=== PATIENT | female | born 1945 | race Caucasian/White ===

== ENCOUNTER 2017-06-06 08:42 | Outpatient (RCR) | payer MEDICARE, OTHER, SELFPAY ==
[2017-06-06 09:01] LABS: Prothrombin Time Fingerstick 30.1 SEC (11.9-14.4)
== END 2017-06-06 09:00 | disposition home or self-care (01) ==
LOC: MTLAB 08:42
PROVIDERS: Family Provider Pathology Anatomic Pathology & Clinical Pathology; PCP Pathology Anatomic Pathology & Clinical Pathology; Visit Provider Internal Medicine Cardiovascular Disease
DX: I48.2 Chronic atrial fibrillation (principal); Z79.01 Long term (current) use of anticoagulants
CPT/HCPCS: 36416; 85610

== ENCOUNTER 2017-08-09 09:01 | Outpatient (RCR) | payer MEDICARE, OTHER, SELFPAY ==
[2017-08-09 09:20] LABS: Prothrombin Time Fingerstick 29.6 SEC (11.9-14.4)
== END 2017-08-09 10:00 | disposition home or self-care (01) ==
LOC: LAB 09:01
PROVIDERS: Family Provider Pathology Anatomic Pathology & Clinical Pathology; PCP Pathology Anatomic Pathology & Clinical Pathology; Visit Provider Internal Medicine Cardiovascular Disease
DX: I48.2 Chronic atrial fibrillation (principal)
CPT/HCPCS: 36416; 85610

== ENCOUNTER → 2017-08-18 11:42 | Outpatient (CLI) | payer MEDICARE, OTHER, SELFPAY ==
[2017-08-18 14:58] LABS: Anion Gap 8 (5-15); BUN 20 mg/dL (7-18); BUN/Creat Ratio 19.6 RATIO (10-20); Chloride 103 mmol/L (98-107); Creatinine, Serum 1.02 mg/dL (0.55-1.02); EST Glomerular Filtration Rate 57 mL/min (>60); Est Glom Filt Rate - Afr Amer 69 mL/min (>60); Glucose 86 mg/dL (74-106); Potassium 4.2 mmol/L (3.5-5.1); Sodium Level 141 mmol/L (136-145)
[2017-08-18 15:29] LABS: AST(SGOT) 33 U/L (15-37); Alanine Aminotransfer ALT/SGPT 24 U/L (13-56); Albumin, Serum 3.7 g/dL (3.2-5.0); Alkaline Phosphatase 80 U/L (45-117); Bilirubin, Direct 0.24 mg/dL (0.00-0.30); Cholesterol 186 mg/dL (200); Globulin 3.3 g/dL (2.2-4.2); High Density Lipoprotein 74 mg/dL; Triglycerides 101 mg/dL; Very Low Density Lipoprotein 20 mg/dL (5-40)
== END ==
PROVIDERS: Physician Assistant Medical; Family Provider Pathology Anatomic Pathology & Clinical Pathology; PCP Pathology Anatomic Pathology & Clinical Pathology; Visit Provider Internal Medicine Cardiovascular Disease
DX: I50.22 Chronic systolic (congestive) heart failure (principal); E78.5 Hyperlipidemia, unspecified
CPT/HCPCS: 80048; 80061; 80076

== ENCOUNTER 2017-09-19 11:36 | Day surgery (SDC) | payer MEDICARE, OTHER, SELFPAY ==
[2017-09-15 11:26] VITALS: BP 104/64; PULSE 69; RESP 18; TEMP 37; O2SAT 99; BMI 26.6
[2017-09-19 12:11] LABS: Prothrombin Time Fingerstick 13.7 SEC (11.9-14.4)
[2017-09-19 12:16] VITALS: BP 120/64; PULSE 74; RESP 16; TEMP 36.5; O2SAT 99; BMI 26.6
--- NOTE | 2017-09-19 14:46 | PCM.DC ---
You will use the following diet at home:: No restrictions Discharge Activity: Return to Normal Activity Call your doctor if your incision/area has: Increased Pain/ Swelling Allergies/Adverse Reactions: Allergies amoxicillin Allergy (Verified 02/01/17 09:54) Unknown risedronate sodium [From Actonel] Allergy (Verified 02/01/17 09:54) Unknown metoprolol Adverse Reaction (Severe, Uncoded 06/26/17 11:57) Abdominal cramping, poor rate control Medications to take at Discharge Aspirin [Aspirin, Baby] 81 mg PO DAILY@0800 01/22/15 Levothyroxine [Synthroid] 75 mcg PO DAILY 01/22/15 Warfarin [Coumadin ([facility])] 6 mg PO WETH 01/22/15 Acetaminophen Liquid [Tylenol Liquid] 80 mg PO QHS 03/06/15 Magnesium Oxide [Magnesium] 1 tab PO DAILY 03/06/15 verapamil ER (PM) 100 mg capsule 24hr pellet CT,ext.release 100 mg PO QHS #90 cap 05/30/17 diazepam 5 mg tablet 2.5 mg PO PRN PRN 06/30/17 guaifenesin ER 600 mg tablet, extended release 12 hr 600 mg PO ONCE PRN 06/30/17 furosemide 20 mg tablet 40 mg PO QDAY #180 tab 08/09/17 spironolactone 25 mg tablet 25 mg PO QDAY #90 tab 09/04/17 Cholecalciferol (Vitamin D3) [Vitamin D3] 09/15/17 Triamcinolone Acetonide [Nasacort] 1 spray NS PRN PRN 09/15/17 Warfarin Sodium [Coumadin] 5 mg PO [id number] 09/15/17 Primary Care Physician: Coleman Sol MD [Primary Care Provider] - Please Follow Up With: Helio Lantigua MD When: 1 month
--- NOTE | 2017-09-19 14:49 | PCM.OPRPT ---
Problem List (1) Vocal cord paralysis, unilateral complete Status: Chronic Report of Operation Date of Procedure: 09/19/17 Pre-Operative Diagnosis: left vocal cord immobility Post-Operative Diagnosis: left vocal cord immobility Surgery/Procedure Performed:: injection, left vocal cord Type of Anesthesia:: General Description of Procedure: on the day of the procedure, after appropriate informed consent was obtained, the patient was brought to the operating room and placed in supine position on the operating table. she was placed under general endotracheal anesthesia by the anesthesiologist. the endotracheal tube was secured, the eyes were taped. the table was rotated 90 degrees toward the surgeon. a mouth guard was placed. the michaela laryngoscope was inserted into the oral cavity with care not to damage the lips, teeth or gums. it was suspended from the estrada stand. a good glottic view was achieved. the left paraglottic space was injected with 0.8cc of prolaryn plus. the vocal cord was medialized in good position. given her presbylarynx, her right paraglottic space was injected with 0.8cc prolaryn gel. hemostasis was observed. the patient was awoken from anesthesia and transferred to the PACU in stable condition.
[2017-09-19 15:18] VITALS: BP 120/64; BP 126/86; PULSE 90; RESP 16; TEMP 36.9; O2SAT 93
[2017-09-19 15:30] VITALS: BP 120/64; BP 129/79; PULSE 85; RESP 16; O2SAT 93
[2017-09-19 15:45] VITALS: BP 120/64; BP 123/74; PULSE 80; RESP 16; O2SAT 95
[2017-09-19 15:57] VITALS: BP 118/77; BP 120/64; PULSE 78; RESP 16; TEMP 36.5; O2SAT 94
[2017-09-19 16:30] VITALS: BP 120/64
== END 2017-09-19 16:41 | disposition home or self-care (01) ==
LOC: SDC 11:37 → AC 11:41
PROVIDERS: Family Provider Pathology Anatomic Pathology & Clinical Pathology; PCP Pathology Anatomic Pathology & Clinical Pathology; Visit Provider Otolaryngology
PROC: 0CJS8ZZ Inspection of Larynx, Via Natural or Artificial Opening Endoscopic (ICD-10-PCS; CPT 31575; principal; 2017-09-19 12:55)
DX: J38.01 Paralysis of vocal cords and larynx, unilateral (principal); R49.0 Dysphonia; I48.2 Chronic atrial fibrillation; I10 Essential (primary) hypertension; Z87.891 Personal history of nicotine dependence; Z95.0 Presence of cardiac pacemaker
CPT/HCPCS: 00320; 31573; 36416; 85610; J7120

== ENCOUNTER → 2017-09-26 08:00 | Outpatient (CLI) | payer MEDICARE, OTHER, SELFPAY ==
[2017-09-26 10:22] LABS: Anion Gap 5 (5-15); BUN 19 mg/dL (7-18); BUN/Creat Ratio 19.6 RATIO (10-20); Chloride 105 mmol/L (98-107); Creatinine, Serum 0.97 mg/dL (0.55-1.02); EST Glomerular Filtration Rate 60 mL/min (>60); Est Glom Filt Rate - Afr Amer 73 mL/min (>60); Glucose 80 mg/dL (74-106); Potassium 4.1 mmol/L (3.5-5.1); Sodium Level 141 mmol/L (136-145)
== END ==
PROVIDERS: Family Provider Pathology Anatomic Pathology & Clinical Pathology; PCP Pathology Anatomic Pathology & Clinical Pathology; Visit Provider Internal Medicine Cardiovascular Disease
DX: R53.83 Other fatigue (principal); R25.2 Cramp and spasm
CPT/HCPCS: 36415; 80048

== ENCOUNTER 2017-11-07 08:15 | Outpatient (RCR) | payer MEDICARE, OTHER, SELFPAY ==
--- NOTE | 2017-10-23 10:27 | DT_ITS ---
This patient was seen during an EMR downtime October 16, 2017 - October 23, 2017. This patient may have a combination of paper and electronic documentation or all paper documentation. All documentation is viewable within the e-chart portion of [employer] for each patient visit.
[2017-10-23 10:40] LABS: Prothrombin Time Fingerstick 40.9 SEC (11.9-14.4)
[2017-11-07 08:26] LABS: Prothrombin Time Fingerstick 40.6 SEC (11.9-14.4)
== END 2017-11-07 09:00 | disposition home or self-care (01) ==
LOC: LAB 08:15
PROVIDERS: Family Provider Pathology Anatomic Pathology & Clinical Pathology; PCP Pathology Anatomic Pathology & Clinical Pathology; Visit Provider Internal Medicine Cardiovascular Disease
DX: I48.2 Chronic atrial fibrillation (principal)
CPT/HCPCS: 36416; 85610

== ENCOUNTER 2017-12-05 09:24 | Outpatient (RCR) | payer MEDICARE, OTHER, SELFPAY ==
[2017-11-20 08:46] LABS: Prothrombin Time Fingerstick 31.3 SEC (11.9-14.4)
== END 2017-12-05 11:00 | disposition home or self-care (01) ==
LOC: LAB 09:24
PROVIDERS: Family Provider Pathology Anatomic Pathology & Clinical Pathology; PCP Pathology Anatomic Pathology & Clinical Pathology; Visit Provider Internal Medicine Cardiovascular Disease
DX: I48.2 Chronic atrial fibrillation (principal)
CPT/HCPCS: 36416; 85610

== ENCOUNTER 2018-01-01 08:35 | Outpatient (RCR) | payer MEDICARE, OTHER, SELFPAY ==
[2018-01-01 08:50] LABS: Prothrombin Time Fingerstick 24.2 SEC (11.9-14.4)
== END 2018-01-01 10:00 | disposition home or self-care (01) ==
LOC: LAB 08:35
PROVIDERS: Family Provider Pathology Anatomic Pathology & Clinical Pathology; PCP Pathology Anatomic Pathology & Clinical Pathology; Visit Provider Internal Medicine Cardiovascular Disease
DX: I48.2 Chronic atrial fibrillation (principal); Z79.01 Long term (current) use of anticoagulants
CPT/HCPCS: 36416; 85610

== ENCOUNTER 2018-01-23 08:35 | Outpatient (RCR) | payer MEDICARE, OTHER, SELFPAY ==
[2018-01-23 08:55] LABS: Prothrombin Time Fingerstick 32.8 SEC (11.9-14.4)
== END 2018-01-23 10:00 | disposition home or self-care (01) ==
LOC: LAB 08:35
PROVIDERS: Family Provider Pathology Anatomic Pathology & Clinical Pathology; PCP Pathology Anatomic Pathology & Clinical Pathology; Visit Provider Internal Medicine Cardiovascular Disease
DX: I48.2 Chronic atrial fibrillation (principal); Z79.01 Long term (current) use of anticoagulants
CPT/HCPCS: 36416; 85610

== ENCOUNTER 2018-02-28 08:23 | Outpatient (RCR) | payer MEDICARE, OTHER, SELFPAY ==
[2018-02-28 10:43] LABS: International Normalized Ratio 2.8; Prothrombin Time (Protime)PT. 29.3 SECONDS (11.7-14.9)
[2018-02-28 10:59] LABS: AST(SGOT) 30 U/L (15-37); Alanine Aminotransfer ALT/SGPT 20 U/L (13-56); Albumin, Serum 3.5 g/dL (3.2-5.0); Alkaline Phosphatase 79 U/L (45-117); Bilirubin, Direct 0.23 mg/dL (0.00-0.30); Cholesterol 178 mg/dL (200); Globulin 3.5 g/dL (2.2-4.2); High Density Lipoprotein 78 mg/dL; Triglycerides 68 mg/dL; Very Low Density Lipoprotein 14 mg/dL (5-40)
[2018-02-28 11:10] LABS: Thyroid Stim Hormone (TSH) 1.92 uIU/mL (0.358-3.74)
== END 2018-02-28 10:00 | disposition home or self-care (01) ==
LOC: LAB 08:23
PROVIDERS: Referring Provider Internal Medicine Cardiovascular Disease; Visit Provider Internal Medicine Cardiovascular Disease
DX: I48.2 Chronic atrial fibrillation (principal); Z79.01 Long term (current) use of anticoagulants; E03.9 Hypothyroidism, unspecified
CPT/HCPCS: 36415; 80061; 80076; 84443; 85610

== ENCOUNTER 2018-04-30 08:28 | Outpatient (RCR) | payer MEDICARE, OTHER, SELFPAY ==
--- OUTSIDE RECORDS SUMMARY | 2018-08-01 19:45 | XMS RPT_ITS ---
:1945 Author Organization OHIP Support Name Relationship Address Phone BRIDGET EMERSON Unavailable [address] + [place] [address] OSVALDO CHAMBERS Unavailable [address] + [place] [address] R Unavailable Unavailable Unavailable BRIDGET EMERSON Unavailable [address] + [place] [address] OSVALDO CHAMBERS Unavailable [address] + [place] [address] R Unavailable Unavailable Unavailable BRIDGET EMERSON Unavailable [address] + [place] [address] OSVALDO CHAMBERS Unavailable [address] + [place] [address] R Unavailable Unavailable Unavailable BRIDGET EMERSON Unavailable [address] + [place] [address] OSVALDO CHAMBERS Unavailable [address] + [place] [address] R Unavailable Unavailable Unavailable BRIDGET EMERSON Unavailable [address] + [place] [address] OSVALDO CHAMBERS Unavailable [address] + [place] [address] R Unavailable Unavailable Unavailable BRIDGET EMERSON Unavailable [address] + [place] [address] OSVALDO CHAMBERS Unavailable [address] + [place] [address] R Unavailable Unavailable Unavailable BRIDGET EMERSON Unavailable [address] + [place] [address] OSVALDO CHAMBERS Unavailable [address] + [place] [address] R Unavailable Unavailable Unavailable BRIDGET EMERSON Unavailable [address] + [place] [address] OSVALDO CHAMBERS Unavailable [address] + [place] [address] R Unavailable Unavailable Unavailable KI, BRIDGET Unavailable [address]KE + [place] [address] DUDLEYALEXKade Unavailable [address] + [place] [address] R Unavailable Unavailable Unavailable IK, BRIDGET Unavailable [address]KE + [place] [address] DUDLEYALEXE Unavailable [address] + [place] [address] R Unavailable Unavailable Unavailable KI, BRIDGET Unavailable [address] + [place] [address] DUDLEYALEXE Unavailable [address] + [place] [address] R Unavailable Unavailable Unavailable KI, BRIDGET Unavailable [address] + [place] [address] DUDLEYALEXE Unavailable [address] + [place] [address] R Unavailable Unavailable Unavailable KI BRIDGET Unavailable [address]KE + [place] [address] DUDLEY ALEXKade Unavailable [address] + [place] [address] R Unavailable Unavailable Unavailable KI, BRIDGET Unavailable [address]KE + [place] [address] DUDLEY ALEXKade Unavailable [address] + [place] [address] R Unavailable Unavailable Unavailable KI BRIDGET Unavailable NA + [place], [place] OSVALDO CHAMBERS Unavailable NA + [place], [place] R Unavailable Unavailable Unavailable KI BRIDGET Unavailable NA + [place], [place] OSVALDO CHAMBERS Unavailable NA + [place], [place] R Unavailable Unavailable Unavailable KI, BRIDGET Unavailable [address] + [place] [address] OSVALDO CHAMBERS Unavailable [address] + [place] [address] R Unavailable Unavailable Unavailable Care Team Providers Name Role Phone RITESH WHITAKER Referring Unavailable RITESH WHITAKER Referring Unavailable ADI DUONG Referring Unavailable ADI DUONG Attending Unavailable Clair Crawford Attending Unavailable Whitaker, Coleman Referring Unavailable Sanford, Brocket Attending Unavailable Sanford, Jamie Referring Unavailable BRIDGET COLEMAN Primary Care Unavailable BRIDGET COLEMAN Consulting Unavailable Sanford, Brocket Attending Unavailable Sanford, Jamie Referring Unavailable Whitaker, Coleman Primary Care Unavailable Joann Correa Attending Unavailable Whitaker, Coleman Referring Unavailable Whitaker, Coleman Primary Care Unavailable Clair Crawford Attending Unavailable Whitaker, Coleman Referring Unavailable Whitaker, Coleman Primary Care Unavailable Sanford, Jamie Attending Unavailable Sanford, Jamie Referring Unavailable Whitaker, Coleman Primary Care Unavailable Sanford, Jamie Attending Unavailable Whitaker, Coleman Primary Care Unavailable Helio [place] Attending Unavailable SpeedyannHelio Referring Unavailable Whitaker, Coleman Primary Care Unavailable Sanford, Jamie Attending Unavailable Sanford, Brocket Referring Unavailable Whitaker, Coleman Primary Care Unavailable Sanford, Jamie Attending Unavailable Sanford, Jamie Referring Unavailable Whitaker, Coleman Primary Care Unavailable Sanford, Jamie Attending Unavailable Sanford, Jamie Referring Unavailable Whitaker, Coleman Primary Care Unavailable BRIDGET COLEMAN Consulting Unavailable Sanford, Brocket Attending Unavailable Sanford, Brocket Referring Unavailable Whitaker, Coleman Primary Care Unavailable BRIDGET COLEMAN Consulting Unavailable Clair Crawford Attending Unavailable Whitaker, Coleman Referring Unavailable Whitaker, Coleman Primary Care Unavailable Sanford, Brocket Attending Unavailable Whitaker, Coleman Referring Unavailable Whitaker, Coleman Primary Care Unavailable Sanford, Jamie Attending Unavailable Sanford, Brocket Referring Unavailable BRIDGET COLEMAN Consulting Unavailable BRIDGET COLEMAN Primary Care Unavailable Sanford, Brocket Attending Unavailable Sanford, Brocket Referring Unavailable BRIDGET COLEMAN Primary Care Unavailable BRIDGET COLEMAN Consulting Unavailable Clair Crawford Attending Unavailable PROBLEMS PROBLEMS DATE TYPE CONDITION / CODE ATTENDING STATUS SOURCE Unknown I48.2 - Chronic atrial Sanford, 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[facility] fibrillation / Community I48.2(ICD-10) Hospital Repository Active Pain, unspecified / NA Active [facility] R52(ICD-10) Clinic Other [place] Repository Unknown E78.5 - Hyperlipidemia, SanfordCam orellanaril Active [facility] unspecified / Community E78.5(ICD-10) Hospital Repository Unknown 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, 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[facility] (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 / Community Z79.899(ICD-10) Hospital Repository Unknown 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 Sanford, 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[facility] (current) use of Community anticoagulants / Hospital Z79.01(ICD-10) Repository Unknown E03.9 - Hypothyroidism, Sanford, Brocket Active [facility] unspecified / Community E03.9(ICD-10) Hospital Repository Unknown 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, 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[facility] heart disease of [place] Community coronary artery without Hospital angina pectoris / Repository I25.10(ICD-10) Unknown I42.2 - Other Sanford, 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[facility] hypertrophic Community cardiomyopathy / Hospital I42.2(ICD-10) Repository Unknown Z95.0 - Presence of Sanford, 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[facility] cardiac pacemaker / Community Z95.0(ICD-10) Hospital Repository Unknown I51.9 - Heart disease, Sanford, Brocket Active [facility] unspecified / Community I51.9(ICD-10) Hospital Repository Active Cramp and spasm / NA Active [facility] R25.2(ICD-10) Clinic Other [place] Repository Active Encounter for screening NA Active [facility] mammogram for malignant Clinic Other neoplasm of breast / [place] Z12.31(ICD-10) Repository Unknown E78.00 - Pure Sunny, Active [facility] hypercholesterolemia, Joann M Community unspecified / Hospital E78.00(ICD-10) Repository Unknown E78.0 - Pure Correa, Active [facility] hypercholesterolemia / Joann M Community E78.0(ICD-10) Hospital Repository PROCEDURES PROCEDURES No Procedure Records FoundRESULTS RESULTS PROTIME W/INR Collected: 05/31/2018 Status: F Source: [facility] 8:28 AM [facility] HOSPITAL REPOSITORY TYPE CODE TESTS RESULT OUT OF REFERENCE UNITS RANGE LAB L9200.1001 11.9-14.4 SEC High PROTIME ISTAT 36.3 Result Comment: Reference Range 11.9 - 14.4 LAB L9200.2000 Normal INR ISTAT 3.20 Result Comment: Critical Value > 3.5 Performed By: #### [id number] #### [facility] Point of Care [address] [place] [address] PROTIME W/INR Collected: 04/30/2018 Status: F Source: [place] [facility] 8:42 AM [facility] REPOSITORY TYPE CODE TESTS RESULT OUT OF REFERENCE UNITS RANGE LAB L9200.1001 11.9-14.4 SEC High PROTIME ISTAT 38.0 Result Comment: Reference Range 11.9 - 14.4 LAB L9200.1999 Normal INR ISTAT 3.40 Result Comment: Critical Value > 3.5 Performed By: #### [id number] #### [facility] Point of Care [address] [place] [address] PACEMAKER CHECK Observed: 04/26/2018 Status: F Source: [facility] 11:16 AM [facility] REPOSITORY [facility] [address] [place] [address] Pacemaker Check Date of Service: 04/24/18 1255 MR#: [id number] Acct: [id number] Name: BETTINA CHAMBERS Marvin Rep #: [id number] : 1945 From: Clair Crawford Age/Sex: 72/F [place] [facility] [place]: Signed Billing Codes PM Device Codes: PM Dev Prog Eval, Dual 04/24/18 1257 <Electronically signed by Clair Crawford > Date Clair Crawford 04/26/18 1116<Electronically signed by Jamie Christina MD> Cosigner Signature: Date (if applicable) Jamie Christina MD CC: PROGRESS Observed: 04/10/2018 Status: COMPLETED Source: [facility] 2:45 PM CLIN[facility] OTHER CAMPUS REPOSITORY HNO ID: [id number] Author: Sanjuanita (Ct) FRANK Gutierrez Service: (none) Author Type: Clinical Turbine Attendant Type: Progress Notes Filed: 04/10/2018 2:46 PM Note Text: NAME:Bettina Chambers DATE: April 10, 2018 CCF#: [id number] Lower Extremity X-Ray(s): Knee, AP / Lat / Tunne / Merchant Left and Wt. Bearing COMPLETED TECH ID SIGN: SOFIA CHAMPION PROGRESS Observed: 04/10/2018 Status: COMPLETED Source: [facility] 1:30 PM [facility] REPOSITORY HNO ID: [id number] Author: Adi Duong Service: (none) Author Type: Physician Type: Progress Notes Filed: 04/26/2018 5:32 PM Note Text: Adi Duong MD Department of Orthopaedics Orthopaedics [address] [place] [address] Dept: [phone] April 10, 2018 CHIEF COMPLAINT: New Patient (left knee pain, xray) HPI: Ms. Bettina Chambers is a 72 year old female who presents with some problems with her left knee. She has a known history of arthritis that has mostly bother her a bit on the inner portion of the knee, however the outer portion of the knee has been giving her more trouble even up to a 7 out of 10 pain at times. It is intermittent. She didn't think some Tylenol and icing it. She does enjoy going for a short walk twice a day and she has been continuing to do this despite the discomfort. ASSESSMENT: M25.562, G89.29 Chronic pain of left knee (primary encounter diagnosis) M17.12 Primary osteoarthritis of left knee PLAN: Are going to try a short course of anti-inflammatory. A cortisone injection may be appropriate at some point. FOLLOW UP INSTRUCTIONS: As above Ms. Bettina Chambers was advised as to contrast therapies and/or to take analgesics/anti-inflammatories as needed and all contraindications were reviewed. OBJECTIVE: Ms. Bettina Chambers is a pleasant 72 year old in no apparent distress. Gen:BP 107/75 Pulse 83 Wt 166 lb 12.8 oz (75.7kg) nl development, non obese, no deformities ENT: Normocephalic, normal hearing, moist mucosa CV: Pulses:DP/PT= 2+ and symmetric, capillary refill < 2 secs, no peripheral edema/varicosities Skin: no rash, bruising or lesions. Good turgor. Psych: cooperative and appropriate, alert and oriented x 3, good mood and affect. Musculoskeletal: Patient walks with mild antalgia, normal station. Hip motion without pain. Knee without effusion. Patella tracks normally. There is no patellar crepitance. No pain along the medial or lateral facets. Range of motion 0?130 degrees. Mild medial and lateral joint line pain on palpation. Ligamentous exam stable on varus and valgus stress testing at 0 and 30 degrees. Javy's examination is negative. Posterior drawer is negative. Negative McMurrays, without palpable click. Extremity is warm and well perfused. Sensation is grossly intact to light touch, subjectively. IMAGING: IMPRESSION: MEDIAL COMPARTMENT PREDOMINANT DEGENERATIVE CHANGES OF THE LEFT KNEE. Technical Recruiter: PERI ? Transcribe Date/Time: Apr 11 2018 ?7:16A Dictated by : EVANGELIST GUNTER MD This examination was interpreted and the report reviewed and electronically signed by: EVANGELIST GUNTER MD on Apr 11 2018 ?7:18AM ?EST Results-Findings * * *Final Report* * * DATE OF EXAM: Apr 10 2018 12:43PM ? MDO ? 5202 ?- ?XR KNEE 4V AP/PA BOTH+LAT/BRAULIO LT ?/ PROCEDURE REASON: [id number] ?? ? * * * * Physician Interpretation * * * * ?EXAMINATION: ?XR KNEE 4V AP/PA BOTH+LAT/BRAULIO LT HISTORY: ? LT KNEE ?PAIN ?Pain ? . TECHNIQUE: ?XR KNEE 4V AP/PA BOTH+LAT/BRAULIO LT ?? Laterality: ?LEFT ?? Number of different views (projections): 4 ?? M: ?XB_1 COMPARISON: ?06/24/2014. RESULT: There is no acute fracture or subluxation. There is moderate joint space narrowing of the medial compartment, slightly progressed since prior exam. There is also mild joint space narrowing of the lateral compartment. Tricompartmental osteophytes. There is no joint effusion. No lytic or blastic osseous lesion. The soft tissues are grossly. Note is made of mild degenerative changes of the right knee. There is an benign-appearing fibro-osseous lesion in distal right femur. Supporting Subjective Information Below: Past Medical History: PAST MEDICAL HISTORY Diagnosis Date - Arrhythmia diagnosed with CHF 3 years ago - Macular degeneration (senile) of retina, unspecified - Senile cataract, unspecified - Thyroid disorder - Unspecified keratitis Past Surgical History: PAST SURGICAL HISTORY Procedure Laterality Date - CARDIOVERSION x8 - HEMORRHOID;BAND LIGAT, SNGL/MUL 1977 Hemorrhoidectomy - HYSTERECTOMY HX 1994 - KNEE ARTHROSCOPY/SURGERY 1987 - [place] ANESTH,PACEMAKER INSERTION Permanent Pacemaker defibrillatior- last time replaced was in 2011- pacemaker - SINGLE OBLATION 1999 Family History: FAMILY HISTORY Problem Relation Age of Onset - Heart Father - Cancer Mother - Cancer Sister - Heart Daughter - Heart Son Social History:Social History Marital status: Spouse name: Years of education: Number of children: Social History Main Topics Smoking status: Former Smoker Packs/day: 2.00 Years: 0.00 Types: Cigarettes Quit date: 05/19/1989 Smokeless tobacco: Never Used Alcohol use: No Drug use: No Medications: Current Outpatient Prescriptions: spironolactone (ALDACTONE) 25 mg tablet Take 25 mg by mouth once daily. 1/2 tablet daily cholecalciferol (VITAMIN D) 1,000 unit tab tablet Take 1,000 Units by mouth once daily. warfarin (COUMADIN) 5 mg tablet Levothyroxine 125 mcg cap Take 75 mcg by mouth. 75 mcg alternating with 100 mcg VERAPAMIL HCL 100 mg 24 hr capsule FUROSEMIDE 20 mg ORAL tablet 40 mg twice daily. diazepam 5 mg ORAL tablet Take 5 mg by mouth at bedtime as needed. fluticasone (FLONASE) 50 mcg/actuation NASAL nasal spray Use 1 [place] in each nostril once daily. aspirin, enteric coated (ASPIR-81) 81 mg EC tablet Take 1 tablet by mouth once daily. COMPOUNDED PRESCRIPTION Areds eye vitamin 120mg PO twice daily No current facility-administered medications for this visit. Allergies: Actonel [Risedronate]; Amoxicillin; Prednisolone ROS: General (negative for fatigue, malaise, weight loss/gain) HEENT (negative for headache, earache, recent vision changes, sinus pain, sore throat) Respiratory (no recent shortness of breath, hemoptysis) CV (negative for chest tightness, palpitations) Musculoskeletal (see HPI) Psych (no depression, anxiety) REFERRING PHYSICIAN: Ms. Bettina Chambers was referred to me for consultation by the following physician. This consultation note will be sent to the following physician by either mail or electronic medical record. SELF Ritesh Whitaker MD [address] [place] [address] This note was partially generated using [employer] voice recognition system, and there may be some incorrect words, spellings, and punctuation that were not noted in checking the note before saving. Adi Duong MD CNOV Observed: 04/10/2018 Status: COMPLETED Source: [facility] 1:15 PM [facility] REPOSITORY Office Visit (ORMDNA) BETTINA CHAMBERS ([id number]) 1945 F Date Time Provider Department 04/10/18 1:15 PM ADI DUONG During your visit today, we recorded the following information about you: Pulse Blood pressure Weight 83/minute 107/75 75.7 kg Sabrina Ocasio RN, RN 04/26/2018 5:32 PM Signed AMB ROOMING INTAKE FLOWSHEET DATA Risk Screening Do you have concerns about personal safety or safety in the home?: No Pain Pain Score: (0-7) Pain Location: Knee-Left Description: Sharp Duration Amount of Time: 1.5 Duration Units: Months Frequency: Intermittent Intervention: Heat, Cold, Medication (tylenol at HS ) Comments: elevation Patient presents with: New Patient: left knee pain, xray patient is here for left knee pain, she completed xray. Patient states pain has been going on for 1.5 months. Patient has been taking tylenol, ice and using heat as well as elevating. Patient walks twice a day. Pain is located in lateral part of knee. . DAPHNEY Daly MD 04/26/2018 5:32 PM Signed Adi Duong MD Department of Orthopaedics Orthopaedics [address] [place], [place] [address] Dept: [phone] April 10, 2018 CHIEF COMPLAINT: New Patient (left knee pain, xray) HPI: Ms. Bettina Chambers is a 72 year old female who presents with some problems with her left knee. She has a known history of arthritis that has mostly bother her a bit on the inner portion of the knee, however the outer portion of the knee has been giving her more trouble even up to a 7 out of 10 pain at times. It is intermittent. She didn't think some Tylenol and icing it. She does enjoy going for a short walk twice a day and she has been continuing to do this despite the discomfort. ASSESSMENT: M25.562, G89.29 Chronic pain of left knee (primary encounter diagnosis) M17.12 Primary osteoarthritis of left knee PLAN: Are going to try a short course of anti-inflammatory. A cortisone injection may be appropriate at some point. FOLLOW UP INSTRUCTIONS: As above Ms. Bettina Chambers was advised as to contrast therapies and/or to take analgesics/anti-inflammatories as needed and all contraindications were reviewed. OBJECTIVE: Ms. Bettina Chambers is a pleasant 72 year old in no apparent distress. Gen:BP 107/75 Pulse 83 Wt 166 lb 12.8 oz (75.7kg) nl development, non obese, no deformities ENT: Normocephalic, normal hearing, moist mucosa CV: Pulses:DP/PT= 2+ and symmetric, capillary refill < 2 secs, no peripheral edema/varicosities Skin: no rash, bruising or lesions. Good turgor. Psych: cooperative and appropriate, alert and oriented x 3, good mood and affect. Musculoskeletal: Patient walks with mild antalgia, normal station. Hip motion without pain. Knee without effusion. Patella tracks normally. There is no patellar crepitance. No pain along the medial or lateral facets. Range of motion 0?130 degrees. Mild medial and lateral joint line pain on palpation. Ligamentous exam stable on varus and valgus stress testing at 0 and 30 degrees. Javy's examination is negative. Posterior drawer is negative. Negative McMurrays, without palpable click. Extremity is warm and well perfused. Sensation is grossly intact to light touch, subjectively. IMAGING: IMPRESSION: MEDIAL COMPARTMENT PREDOMINANT DEGENERATIVE CHANGES OF THE LEFT KNEE. Technical Recruiter: DYLANB ? Transcribe Date/Time: Apr 11 2018 ?7:16A Dictated by : EVANGELIST GUNTER MD This examination was interpreted and the report reviewed and electronically signed by: EVANGELIST GUNTER MD on Apr 11 2018 ?7:18AM ?EST Results-Findings * * *Final Report* * * DATE OF EXAM: Apr 10 2018 12:43PM ? MDO ? 5202 ?- ?XR KNEE 4V AP/PA BOTH+LAT/BRAULIO LT ?/ PROCEDURE REASON: [id number] ?? ? * * * * Physician Interpretation * * * * ?EXAMINATION: ?XR KNEE 4V AP/PA BOTH+LAT/BRAULIO LT HISTORY: ? LT KNEE ?PAIN ?Pain ? . TECHNIQUE: ?XR KNEE 4V AP/PA BOTH+LAT/BRAULIO LT ?? Laterality: ?LEFT ?? Number of different views (projections): 4 ?? M: ?XB_1 COMPARISON: ?06/24/2014. RESULT: There is no acute fracture or subluxation. There is moderate joint space narrowing of the medial compartment, slightly progressed since prior exam. There is also mild joint space narrowing of the lateral compartment. Tricompartmental osteophytes. There is no joint effusion. No lytic or blastic osseous lesion. The soft tissues are grossly. Note is made of mild degenerative changes of the right knee. There is an benign-appearing fibro-osseous lesion in distal right femur. Supporting Subjective Information Below: Past Medical History: PAST MEDICAL HISTORY Diagnosis Date - Arrhythmia diagnosed with CHF 3 years ago - Macular degeneration (senile) of retina, unspecified - Senile cataract, unspecified - Thyroid disorder - Unspecified keratitis Past Surgical History: PAST SURGICAL HISTORY Procedure Laterality Date - CARDIOVERSION x8 - HEMORRHOID;BAND LIGAT, SNGL/MUL 1978 Hemorrhoidectomy - HYSTERECTOMY HX 1994 - KNEE ARTHROSCOPY/SURGERY 1987 - [place] ANESTH,PACEMAKER INSERTION Permanent Pacemaker defibrillatior- last time replaced was in 2011- pacemaker - SINGLE OBLATION 1999 Family History: FAMILY HISTORY Problem Relation Age of Onset - Heart Father - Cancer Mother - Cancer Sister - Heart Daughter - Heart Son Social History:Social History Marital status: Spouse name: Years of education: Number of children: Social History Main Topics Smoking status: Former Smoker Packs/day: 2.00 Years: 0.00 Types: Cigarettes Quit date: 05/19/1989 Smokeless tobacco: Never Used Alcohol use: No Drug use: No Medications: Current Outpatient Prescriptions: spironolactone (ALDACTONE) 25 mg tablet Take 25 mg by mouth once daily. 1/2 tablet daily cholecalciferol (VITAMIN D) 1,000 unit tab tablet Take 1,000 Units by mouth once daily. warfarin (COUMADIN) 5 mg tablet Levothyroxine 125 mcg cap Take 75 mcg by mouth. 75 mcg alternating with 100 mcg VERAPAMIL HCL 100 mg 24 hr capsule FUROSEMIDE 20 mg ORAL tablet 40 mg twice daily. diazepam 5 mg ORAL tablet Take 5 mg by mouth at bedtime as needed. fluticasone (FLONASE) 50 mcg/actuation NASAL nasal spray Use 1 [place] in each nostril once daily. aspirin, enteric coated (ASPIR-81) 81 mg EC tablet Take 1 tablet by mouth once daily. COMPOUNDED PRESCRIPTION Areds eye vitamin 120mg PO twice daily No current facility-administered medications for this visit. Allergies: Actonel [Risedronate]; Amoxicillin; Prednisolone ROS: General (negative for fatigue, malaise, weight loss/gain) HEENT (negative for headache, earache, recent vision changes, sinus pain, sore throat) Respiratory (no recent shortness of breath, hemoptysis) CV (negative for chest tightness, palpitations) Musculoskeletal (see HPI) Psych (no depression, anxiety) REFERRING PHYSICIAN: Ms. Bettina Chambers was referred to me for consultation by the following physician. This consultation note will be sent to the following physician by either mail or electronic medical record. SELF Ritesh Whitaker MD [address] [place] [address] This note was partially generated using [employer]Mail voice recognition system, and there may be some incorrect words, spellings, and punctuation that were not noted in checking the note before saving. Adi Duong MD Referring Provider: SELF [200] Allergies As of Date: 04/10/2018 Noted Allergy Reaction ACTONEL (RISEDRONATE) 09/06/2011 2 - Rash AMOXICILLIN 09/06/2011 2 - Rash PREDNISOLONE 09/06/2011 12 - Shortness of Breath 14 - Other: See Comments Comments: Affects baseline a-fibb Date Reviewed: 04/10/2018 Reviewed by: Adi Duong - Fully Assessed Reason for Visit: New Patient [172] Cmt: left knee pain, xray Reason For Visit History Recorded Primary Visit Diagnosis:Chronic pain of left knee [M25.562, G89.29] Other Visit Diagnosis:Primary osteoarthritis of left knee [M17.12] Order(s):meloxicam (MOBIC) 15 mg tabletTake 1 tablet by mouth once daily.Disp: 10 tabletRfl: 0 Prescriptions as of 04/10/2018 Sig: CHOLECALCIFEROL (VITAMIN D3) * Take 1,000 Units by mouth onc* * DIAZEPAM 5 MG TABLET Take 5 mg by mouth at bedtime* * FLUTICASONE 50 MCG/ACTUATION * Use 1 [place] in each nostril o* * FUROSEMIDE 20 MG TABLET 40 mg twice daily. LEVOTHYROXINE 125 MCG CAPSULE Take 75 mcg by mouth. 75 mcg * SPIRONOLACTONE 25 MG TABLET Take 25 mg by mouth once tara* VERAPAMIL ER (PM) 100 MG CAPS* WARFARIN 5 MG TABLET ASPIRIN 81 MG TABLET,DELAYED * Take 1 tablet by mouth once d* COMPOUNDED PRESCRIPTION Areds eye vitamin 120mg PO tw* MELOXICAM 15 MG TABLET Take 1 tablet by mouth once d* Problem List As Of Date 04/10/2018 Noted Resolved Arthritis of knee [M17.10] INVALID FOR* Age-related macular degeneration, dry, both eye*INVALID FOR* Lumbar radicular pain [M54.16] INVALID FOR* Lumbago [M54.5] INVALID FOR* Left-sided low back pain without sciatica [M54.*INVALID FOR* Prescriptions ordered this encounter Disp Refills Start End MELOXICAM 15 MG TABLET 10 t* 0 04/10/2018 Route: ORAL Sig: Take 1 tablet by mouth once daily. Encounter Status:Closed by ADI DUONG MD on 04/26/18 PROGRESS Observed: 04/10/2018 Status: COMPLETED Source: [place] 1:08 PM [facility] REPOSITORY HNO ID: [id number] Author: Sabrina HyattRn)(Hist) DAPHNEY Ocasio Service: (none) Author Type: Registered Nurse Type: Progress Notes Filed: 04/26/2018 5:32 PM Note Text: AMB ROOMING INTAKE FLOWSHEET DATA Risk Screening Do you have concerns about personal safety or safety in the home?: No Pain Pain Score: (0-7) Pain Location: Knee-Left Description: Sharp Duration Amount of Time: 1.5 Duration Units: Months Frequency: Intermittent Intervention: Heat, Cold, Medication (tylenol at HS ) Comments: elevation Patient presents with: New Patient: left knee pain, xray patient is here for left knee pain, she completed xray. Patient states pain has been going on for 1.5 months. Patient has been taking tylenol, ice and using heat as well as elevating. Patient walks twice a day. Pain is located in lateral part of knee. . Sabrina Ocasio RN XR KNEE 4V AP/PA Observed: 04/10/2018 Status: F Source: [facility]+LAT/BRAULIO LT 12:43 PM CLINIC OTHER CAMPUS REPOSITORY * * *Final Report* * * DATE OF EXAM: Apr 10 2018 12:43PM STACI 5202 - XR KNEE 4V AP/PA BOTH+LAT/BRAULIO LT / PROCEDURE REASON: [id number] * * * * Physician Interpretation * * * * EXAMINATION: XR KNEE 4V AP/PA BOTH+LAT/BRAULIO LT HISTORY: LT KNEE PAIN Pain . TECHNIQUE: XR KNEE 4V AP/PA BOTH+LAT/BRAULIO LT Laterality: LEFT Number of different views (projections): 4 M: XB_1 COMPARISON: 06/24/2014. RESULT: There is no acute fracture or subluxation. There is moderate joint space narrowing of the medial compartment, slightly progressed since prior exam. There is also mild joint space narrowing of the lateral compartment. Tricompartmental osteophytes. There is no joint effusion. No lytic or blastic osseous lesion. The soft tissues are grossly. Note is made of mild degenerative changes of the right knee. There is an benign-appearing fibro-osseous lesion in distal right femur. IMPRESSION: MEDIAL COMPARTMENT PREDOMINANT DEGENERATIVE CHANGES OF THE LEFT KNEE. Technical Recruiter: PERI Transcribe Date/Time: Apr 11 2018 7:16A Dictated by : EVANGELIST GUNTER MD This examination was interpreted and the report reviewed and electronically signed by: EVANGELIST GUNTER MD on Apr 11 2018 7:18AM EST [id number] THYROID STIM HORMONE Collected: 02/28/2018 Status: F Source: [place] (TSH) 8:37 AM [facility] REPOSITORY TYPE CODE TESTS RESULT OUT OF RANGE REFERENCE UNITS LAB L501.9520 0.358-3.74 uIU/mL Normal TSH 1.92 Performed By: #### L501.9520 #### [facility] [address] [place], [place], [address] PROTHROMBIN TIME W/INR Collected: 02/28/2018 Status: F Source: [place] 8:30 AM [facility] REPOSITORY TYPE CODE TESTS RESULT OUT OF RANGE REFERENCE UNITS LAB L300.4150 11.7-14.9 SECONDS High PROTIME 29.3 LAB L300.4200 Normal INR 2.8 Performed By: #### L300.3900 #### [facility] [address] [place], [address] LIVER PROFILE Collected: 02/28/2018 Status: F Source: [place] 8:30 AM [facility] REPOSITORY TYPE CODE TESTS RESULT OUT OF RANGE REFERENCE UNITS LAB L501.1500 6.4-8.2 g/dL Normal T PROT 7.0 LAB L501.1800 3.2-5.0 g/dL Normal ALB 3.5 LAB L501.1950 2.2-4.2 g/dL Normal GLOB 3.5 LAB L501.4100 15-37 U/L Normal AST 30 LAB L501.4305 45-117 U/L Normal ALK P 79 LAB L501.4405 13-56 U/L Normal ALT 20 LAB L501.4600 0.20-1.00 mg/dL Normal T BILI 1.00 LAB L501.4700 0.00-0.30 mg/dL Normal D BILI 0.23 Performed By: #### L500.3400, L500.4100 #### [facility] [address] [facility] [place], [place], [address] LIPID PROFILE Collected: 02/28/2018 Status: F Source: [place] 8:30 AM [facility] REPOSITORY TYPE CODE TESTS RESULT OUT OF RANGE REFERENCE UNITS LAB L501.4900 200 mg/dL Normal CHOL 178 Result Comment: <200 mg/dL Desirable 200-240 mg/dL Borderline >240 mg/dL High Risk LAB L501.5000 mg/dL Normal TRIG 68 Result Comment: The drugs N-Acetylcysteine and Metamizole may falsely depress this assay. Serum Triglycerides Reference Interval Normal <150 mg/dL Borderline high 150 - 199 mg/dL High 200 - 499 mg/dL Very High > or = 500 mg/dL LAB L501.6400 mg/dL Normal HDL 78 Result Comment: The drugs N-Acetylcysteine and Metamizole may falsely depress this assay. Reference Range HDL <40 mg/dL Low HDL Cholesterol HDL >or= 60 mg/dL High HDL Cholesterol LAB L501.6500 0-130 mg/dL Normal LDL 86 LAB L501.6600 5-40 mg/dL Normal VLDL 14 Performed By: #### L500.3400, L500.4100 #### [facility] [address] [place], [address] CARDIOLOGY VISIT Observed: 01/30/2018 Status: F Source: [place] REPORT 10:48 AM [facility] REPOSITORY [facility] [address] [place] [address] OFFICE VISIT Date of Service: 01/30/18 MR#: [id number] Acct: [id number] Name: BETTINA CHAMBERS Rep #: [id number] : 1945 Provider: Jamie Christina MD Age/Sex: 72/F [place] [facility] [place]: Signed [facility] Chief Complaint: Follow-up visit. Details: BETTINA CHAMBERS, is a 72 F who presents to the office today for a follow-up visit. 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 She does have a permanent pacemaker. She remains asymptomatic her shortness of breath has improved she is able to walk a mile a day she has not had any chest pain or shortness breath or paroxysmal nocturnal dyspnea pedal edema no near syncope and no evidence of claudication. She has been compliant with all her medications and her weight has also been stable. Her physical exam today demonstrates clear lung de leon regular rate and rhythm and no pedal edema. Her blood pressure appears to be under excellent control. Intake Vital Signs01/30/18 Height 5 ft 5 in 01/30/18 Weight: 160 lb 01/30/18 Body Mass Index (BMI) 26.6 01/30/18 Blood Pressure 124/68 01/30/18 Blood Pressure Location Lt brachial Intake Visit Reasons: 6 M FU Quality Assurance Inspector Required: No Accompanied by: none Is patient in pain?: No Allergies amoxicillin Allergy (Verified 01/30/18 10:29) Unknown risedronate sodium [From Actonel] Allergy (Verified 01/30/18 10:29) Unknown metoprolol Adverse Reaction (Severe, Uncoded 06/26/17 11:57) Abdominal cramping, poor rate control Medications Aspirin [Aspirin, Baby] 81 mg PO DAILY@0800 01/22/15 [History Confirmed 01/30/18] Levothyroxine [Synthroid] 75 mcg PO DAILY 01/22/15 [History Confirmed 01/30/18] Magnesium Oxide [Magnesium] 1 tab PO DAILY 03/06/15 [History Confirmed 01/30/18] verapamil ER (PM) 100 mg capsule 24hr pellet CT,ext.release 100 mg PO QHS #90 cap 05/30/17 [Rx Confirmed 01/30/18] diazepam 5 mg tablet 2.5 mg PO PRN PRN 06/30/17 [History Confirmed 01/30/18] Triamcinolone Acetonide [Nasacort] 1 spray NS PRN PRN 09/15/17 [History Confirmed 01/30/18] spironolactone 25 mg tablet 25 mg PO .COMPLEX #90 tab 09/27/17 [Rx Confirmed 01/30/18] warfarin 5 mg tablet 5 mg PO .COMPLEX 11/07/17 [History Confirmed 01/30/18] warfarin 6 mg tablet 6 mg PO .COMPLEX 11/07/17 [History Confirmed 01/30/18] furosemide 40 mg tablet 40 mg PO QDAY #90 tab 11/28/17 [Rx Confirmed 01/30/18] PFSH Medical History Sick sinus syndrome (Chronic) Hyperlipidemia (Chronic) Pacemaker (Chronic) Hypertrophic cardiomyopathy (Chronic) Systolic heart failure, chronic (Chronic) senior living current use of anticoagulant (Chronic) Chronic atrial fibrillation (Chronic) Family History Other FH: sudden cardiac (SCD) Social History Smoking Status: Former smoker ROS Const Const: Negative for fatigue, weakness, night sweats, excessive sweating, frequent falls, headache(s) or daytime sleepiness Eyes Eyes: Negative for loss of peripheral vision, transient loss of vision, blind spots, double vision or blurry vision ENT ENT: Negative for headache(s), dizziness, balance problems, Nosebleed/epistaxis, tongue swelling or lip swelling Cardio Chest Pain: No Palpitations: No Edema: None Muscle aches with walking: None Resp Respiratory: Negative for SOB at rest, SOB orthopnea\SOB lying down, Cough, paroxysmal nocturnal dyspnea or SOB with activity GI GI: Negative nausea, vomiting, heartburn, black,tarry stools or bright, red blood in stools : Negative for hematuria Musc Musc: Negative for balance problems, muscle aches/ myalgia, muscle weakness or joint pain Skin Skin: Negative non-healing lesions, unusual bruising or rash Neuro Neuro: Negative for weakness, frequent falls, headache(s), double vision, dizziness, lightheadedness, orthostatic symptoms, blurry vision or lack of coordination Joe Hematologic/Lymphatic: Negative for easy bruising or easy bleeding Endo Endo: Negative for fatigue, excessive sweating, cold intolerance, heat intolerance, increased thirst/drinking or hair loss Psych Psych: Negative for anxiety or depression Allergy Allergy/Immunology: Negative for throat swelling, Negative for tongue swelling, Negative for hives, Negative for rash, Negative for lip swelling Cardiology Exam Const Appearance: cooperative, healthy appearing, well developed, well groomed and no acute distress Nutritional Appearance: well nourished and average body habitus Orientation: alert, awake and oriented x3 Head Head: normal to inspection, normocephalic and atraumatic Ears: hearing grossly normal bilaterally and external ears normal Nose: external nose normal, nasal mucous membranes and turbinates normal, nares normal, septum normal, no nasal discharge Face and Sinus: face symmetric Mouth: oral mucosae normal, tongue normal, oropharynx normal and moist mucous membranes Teeth and gingiva: dentition normal Throat: posterior oropharynx normal, tonsils normal and uvula midline Eyes General: appearance normal, both eyes and all related structures Eyelids: eyelids normal Conjunctivae: conjunctivae normal Pupils: PERRL, normal by confrontation and accommodation normal EOM: EOM intact bilaterally Neck Neck: normal visual inspection, trachea midline and no JVD JVD: +5 Carotids: normal carotid upstroke and bounding pulses Chest Chest inspection: normal inspection of the chest, symmetric chest movement and normal respiratory effort Auscultation: Bilateral: Clear to Auscultation Cardio Palpation: normal PMI Rate: regular rate Rhythm: regular rhythm Heart sounds: S1 normal, S2 normal and normal, physiologic split S2; negative rub, gallop or murmur GI GI: normal to inspection, soft, no hepatosplenomegaly and bowel sounds present Neuro General: alert, awake, oriented x3, no focal sensory deficit, gait normal and moves all extremities Skin Skin: no rashes or lesions noted Extremities Pulses: Normal: Right Femoral Pulse, Left Femoral Pulse, Right Dorsalis Pedis Pulse, Left Dorsalis Pedis Pulse, Right Posterior Tibial Pulse, Left Posterior Tibial Pulse, Right Radial Pulse, Left Radial Pulse Lower Extremity Edema: None: Bilateral Musculoskel Musculoskeletal: No joint tenderness Psych Psychological: normal affect Assessment AND Plan 1. Hypertrophic cardiomyopathy I42.2 Plan She does have a history of hypertrophic cardiomyopathy with reduced ejection fraction, she appears to be doing well from the clinical standpoint on the diuretic as well as the verapamil. You remember we had tried changing the verapamil for which she did not tolerate. No other changes will be made. 2. Left ventricular diastolic dysfunction I51.9 Plan She does have a history of left ventricular systolic dysfunction, with her last echocardiogram being performed about 18 months ago. Ejection fraction at that time was noted to be 25% with segmental wall motion of normalities and mild mitral regurgitation. She appears to have stabilized with respect to any heart failure symptoms and I would not recommend we make any changes. 3. Chronic atrial fibrillation I48.2 Plan She does have chronic persistent underlying atrial fibrillation her rate is controlled she will remain on anticoagulation maintaining an INR of 2-3. 4. Atherosclerotic heart disease of [place] coronary artery without angina pectoris I25.10 Plan She does have a history of atherosclerotic cardiovascular disease and has not had any evidence of angina. We will continue with aggressive medical management and risk factor modification. 5. Pacemaker Z95.0 Initial ICD placed 2000, ICD generator change November 2004, ICD Generator change 2005 Plan She is status post pacemaker implantation and her recent pacemaker interrogation was on 01/23/2018. It appears to be functioning well she has had some ventricular high rates but overall appears to be chronically in atrial fibrillation with ventricular pacing. There is adequate battery longevity noted in lead impedances are noted to be normal. Thank you for allowing me to participate in the care of your patient. Please don't hesitate to call if any issues arise Plan Detail Follow Up 6 Months (mmm) Coding Level of Care Code Off vis,est,level 4 Diagnoses Hypertrophic cardiomyopathy I42.2 Left ventricular diastolic dysfunction I51.9 Chronic atrial fibrillation I48.2 Atherosclerotic heart disease of [place] coronary artery without angina pectoris I25.10 Pacemaker Z95.0 Coding Level of Care Code Off vis,est,level 4 Diagnoses Hypertrophic cardiomyopathy I42.2 Left ventricular diastolic dysfunction I51.9 Chronic atrial fibrillation I48.2 Atherosclerotic heart disease of [place] coronary artery without angina pectoris I25.10 Pacemaker Z95.0 01/30/18 1048 <Electronically signed by Jamie Christina MD> Date Jamie Christina MD [facility] Signature: Date (if applicable) CC: Coleman Whitaker MD PACEMAKER CHECK Observed: 01/25/2018 Status: F Source: [place] 10:[address] [place] [address] Pacemaker Check Date of Service: 01/23/18 1049 MR#: [id number] Acct: [id number] Name: BETTINA CHAMBERS Rep #: [id number] : 1945 From: Clair Crawford Age/Sex: 72/F [place] [facility] [place] Status: Signed Billing Codes PM Device Codes: PM Dev Prog Eval, Dual 01/23/18 1051 <Electronically signed by Clair Crawford > Date Clair Yvette 01/25/18 1037<Electronically signed by Jamie Christina MD> Thomas Signature: Date (if applicable) Jamie Christina MD CC: PROTIME W/INR Collected: 01/23/2018 Status: F Source: [place] 8:47 AM [facility] REPOSITORY TYPE CODE TESTS RESULT OUT OF REFERENCE UNITS RANGE LAB L9200.1001 11.9-14.4 SEC High PROTIME ISTAT 32.8 Result Comment: Reference Range 11.9 - 14.4 LAB L9200.2000 Normal INR ISTAT 2.90 Result Comment: Critical Value > 3.5 Performed By: #### L9200.0000 #### [facility] Point of Care [address] [place] [address]. [place] [id number] PROTIME W/INR Collected: 01/01/2018 Status: F Source: [place] 8:47 AM [facility] REPOSITORY TYPE CODE TESTS RESULT OUT OF REFERENCE UNITS RANGE LAB L9200.1001 11.9-14.4 SEC High PROTIME ISTAT 24.2 Result Comment: Reference Range 11.9 - 14.4 LAB L9200.2000 Normal INR ISTAT 2.10 Result Comment: Critical Value > 3.5 Performed By: #### L9200.0000 #### [facility] Point of Care [address] [place] [address]. [place] [address] PROTIME W/INR Collected: 12/05/2017 Status: F Source: [place] 9:32 AM [facility] REPOSITORY TYPE CODE TESTS RESULT OUT OF REFERENCE UNITS RANGE LAB L9200.1001 11.9-14.4 SEC High PROTIME ISTAT 34.0 Result Comment: Reference Range 11.9 - 14.4 LAB L9200.2000 Normal INR ISTAT 3.00 Result Comment: Critical Value > 3.5 Performed By: #### L9200.0000 #### [facility] Point of Care [address] [place] [address] PROTIME W/INR Collected: 11/20/2017 Status: F Source: [place] 8:40 AM [facility] REPOSITORY TYPE CODE TESTS RESULT OUT OF REFERENCE UNITS RANGE LAB L9200.1001 11.9-14.4 SEC High PROTIME ISTAT 31.3 Result Comment: Reference Range 11.9 - 14.4 LAB L9200.2000 Normal INR ISTAT 2.70 Result Comment: Critical Value > 3.5 Performed By: #### L9200.0000 #### [facility] Point of Care [address] [place] [address] PROTIME W/INR Collected: 11/07/2017 Status: F Source: [place] 8:20 AM [facility] REPOSITORY TYPE CODE TESTS RESULT OUT OF REFERENCE UNITS RANGE LAB L9200.1001 11.9-14.4 SEC High PROTIME ISTAT 40.6 Result Comment: Reference Range 11.9 - 14.4 LAB L9200.2000 High alert INR ISTAT 3.60 Result Comment: Critical Value > 3.5 Performed By: #### L9200.0000 #### [facility] Point of Care [address] [place] [address] DOWNTIME REPORT Observed: 11/02/2017 Status: F Source: [place] 11:49 AM [facility] Medical Records Department [address] [place] [address] Downtime Report MR#: [id number] Acct: [id number] Name: BETTINA CHAMBERS Rep #: [id number] : 1945 72 From: Jaiden Ward PCP: Coleman Whitaker MD Status: REG RCR This patient was seen during an EMR downtime October 16, 2017 - October 23, 2017. This patient may have a combination of paper and electronic documentation or all paper documentation. All documentation is viewable within the e-chart portion of [employer] for each patient visit. PROTIME W/INR Collected: 10/23/2017 Status: F Source: [place] 10:34 AM [facility] REPOSITORY TYPE CODE TESTS RESULT OUT OF REFERENCE UNITS RANGE LAB L9200.1001 11.9-14.4 SEC High PROTIME ISTAT 40.9 Result Comment: Reference Range 11.9 - 14.4 LAB L9200.2000 High alert INR ISTAT 3.60 Result Comment: Critical Value > 3.5 Performed By: #### L9200.0000 #### [facility] [place] [address] US DVT LOWER LT Observed: 09/29/2017 Status: F Source: [place] 1:16 PM CLINIC OTHER CAMPUS REPOSITORY * * *Final Report* * * DATE OF EXAM: Sep 29 2017 1:16PM MDU 1006 - US DVT LOWER LT / PROCEDURE REASON: leg cramp (R25.2) * * * * Physician Interpretation * * * * Duplex imaging with color flow Doppler and spectral analysis left Lower extremity: HISTORY: 71 years old Clinical information: leg cramp (R25.2) TECHNIQUE: Both paul scale with and without compression, spectral and color Doppler exams were performed.Images stored and permanent archive. Comparison: None RESULT: Findings: The deep venous system was evaluated from the level of the external iliac vein to level the trifurcation below the knee. There was good compressibility of the deep venous structures. There was spontaneity of flow, phasicity of flow and augmentation demonstrated in the deep vessels. Below the knee, the portions of the posterior tibial and peroneal veins were only segmentally visualized. The portions which were visualized appeared unremarkable. Doppler analysis: Color flow Doppler demonstrated blood flow the to be in the appropriate direction. Spectral analysis showed normal response at rest and with compression maneuvers. IMPRESSION: No evidence of deep venous thrombosis Technical Recruiter: PERI Transcribe Date/Time: Sep 29 2017 1:19P Dictated by : JUAN CALVILLO DO This examination was interpreted and the report reviewed and electronically signed by: JUAN CALVILLO DO on Sep 29 2017 1:19PM EST [id number] BASIC METABOLIC Collected: 09/26/2017 Status: F Source: [place] PROFILE (BMP) 8:20 AM [facility] REPOSITORY Order Comment: Comments: Pt on diuretics, thinks she may be dehydrated Comments: Pt on diuretics, thinks she may be dehydrated TYPE CODE TESTS RESULT OUT OF RANGE REFERENCE UNITS LAB L501.0100 74-106 mg/dL Normal GLU 80 Result Comment: Please note revised GLUCOSE reference range effective 2017. LAB L501.1000 7-18 mg/dL High BUN 19 LAB L501.1100 0.55-1.02 mg/dL Normal CREAT,SERUM 0.97 Result Comment: The validity of the calculated GFR AND GFRAA in patients over 70 years has not been determined. Clinical correlation is essential. LAB L501.1110 >60 mL/min Normal EST GFR 60 Result Comment: Non- GFR Calc LAB L501.1115 >60 mL/min Normal EST GFR - AA 73 Result Comment: GFR Calc LAB L501.1300 10-20 RATIO Normal BUN/CRE 19.6 LAB L501.2200 8.5-10.1 mg/dL CA Normal 9.0 LAB L501.5300 136-145 mmol/L NA Normal 141 LAB L501.5600 3.5-5.1 mmol/L K Normal 4.1 LAB L501.5900 98-107 mmol/L CL Normal 105 LAB L501.6100 21.0-32.0 mmol/L Normal CO2 31.0 LAB L501.6200 5-15 Normal GAP 5 Performed By: #### L500.2500 #### [facility] [address] [facility] [place], [address] OPERATIVE REPORT Observed: 09/19/2017 Status: F Source: [place] 3:02 PM [facility] REPOSITORY [facility] Medical Records Department [address] [place] [address] Operative Report 09/19/17 1449 MR#: [id number] Acct: [id number] Name: BETTINA CHAMBERS Rep #: [id number] : 1945 71 From: Helio Lantigua MD PCP: Coleman Whitaker MD Status: REG [facility] [place] Location: [place] [address] Problem List (1) Vocal cord paralysis, unilateral complete Status: Chronic Report of Operation Date of Procedure: 09/19/17 Pre-Operative Diagnosis: left vocal cord immobility Post-Operative Diagnosis: left vocal cord immobility Surgery/Procedure Performed:: injection, left vocal cord Type of Anesthesia:: General Description of Procedure: on the day of the procedure, after appropriate informed consent was obtained, the patient was brought to the operating room and placed in supine position on the operating table. she was placed under general endotracheal anesthesia by the anesthesiologist. the endotracheal tube was secured, the eyes were taped. the table was rotated 90 degrees toward the surgeon. a mouth guard was placed. the michaela laryngoscope was inserted into the oral cavity with care not to damage the lips, teeth or gums. it was suspended from the estrada stand. a good glottic view was achieved. the left paraglottic space was injected with 0.8cc of prolaryn plus. the vocal cord was medialized in good position. given her presbylarynx, her right paraglottic space was injected with 0.8cc prolaryn gel. hemostasis was observed. the patient was awoken from anesthesia and transferred to the PACU in stable condition. 09/19/17 1502 <Electronically signed by Helio Lantigua MD> Date Helio Lantigua MD CC: Ronal Lantigua MD; Coleman Whitaker MD Signed DISCHARGE INSTRUCTION Observed: 09/19/2017 Status: F Source: [place] 2:46 PM [facility] REPOSITORY [facility] Medical Records Department [address] [place] [address] Instructions for Home/Discharge Instructions 09/19/17 1446 MR#: [id number] Acct: [id number] Name: CHAMBERSTARIQKade Wong Rep #: [id number] : 1945 71 From: Helio Lantigua MD PCP: Coleman Whitaker MD Status: REG [facility] [place] You will use the following diet at home:: No restrictions Discharge Activity: Return to Normal Activity Call your doctor if your incision/area has: Increased Pain/ Swelling Allergies/Adverse Reactions: Allergies amoxicillin Allergy (Verified 02/01/17 09:54) Unknown risedronate sodium [From Actonel] Allergy (Verified 02/01/17 09:54) Unknown metoprolol Adverse Reaction (Severe, Uncoded 06/26/17 11:57) Abdominal cramping, poor rate control Medications to take at Discharge Aspirin [Aspirin, Baby] 81 mg PO DAILY@0800 01/22/15 Levothyroxine [Synthroid] 75 mcg PO DAILY 01/22/15 Warfarin [Coumadin ([facility])] 6 mg PO WETH 01/22/15 Acetaminophen Liquid [Tylenol Liquid] 80 mg PO QHS 03/06/15 Magnesium Oxide [Magnesium] 1 tab PO DAILY 03/06/15 verapamil ER (PM) 100 mg capsule 24hr pellet CT,ext.release 100 mg PO QHS #90 cap 05/30/17 diazepam 5 mg tablet 2.5 mg PO PRN PRN 06/30/17 guaifenesin ER 600 mg tablet, extended release 12 hr 600 mg PO ONCE PRN 06/30/17 furosemide 20 mg tablet 40 mg PO QDAY #180 tab 08/09/17 spironolactone 25 mg tablet 25 mg PO QDAY #90 tab 09/04/17 Cholecalciferol (Vitamin D3) [Vitamin D3] 09/15/17 Triamcinolone Acetonide [Nasacort] 1 spray NS PRN PRN 09/15/17 Warfarin Sodium [Coumadin] 5 mg PO SUMOTUFRSA 09/15/17 Primary Care Physician: Coleman Whitaker MD [Primary Care Provider] - Please Follow Up With: Helio Lantigua MD When: 1 month 09/19/17 1446 <Electronically signed by Helio Lantigua MD> Date Helio Lantigua MD CC: Coleman Whitaker MD PROTIME W/INR Collected: 09/19/2017 Status: F Source: [place] 12:01 PM [facility] REPOSITORY TYPE CODE TESTS RESULT OUT OF RANGE REFERENCE UNITS LAB L9200.1001 11.9-14.4 SEC Normal PROTIME ISTAT 13.7 Result Comment: Reference Range 11.9 - 14.4 LAB L9200.2000 Normal INR ISTAT 1.20 Result Comment: Critical Value > 3.5 Performed By: #### L9200.0000 #### [facility] Point of Care [address] [place], [place] [address] BASIC METABOLIC Collected: 08/18/2017 Status: F Source: [place] PROFILE (BMP) 11:50 AM [facility] REPOSITORY TYPE CODE TESTS RESULT OUT OF RANGE REFERENCE UNITS LAB L501.0100 74-106 mg/dL Normal GLU 86 Result Comment: Please note revised GLUCOSE reference range effective 2017. LAB L501.1000 7-18 mg/dL High BUN 20 LAB L501.1100 0.55-1.02 mg/dL Normal CREAT,SERUM 1.02 Result Comment: The validity of the calculated GFR AND GFRAA in patients over 70 years has not been determined. Clinical correlation is essential. LAB L501.1110 >60 mL/min Low EST GFR 57 Result Comment: Non- GFR Calc LAB L501.1115 >60 mL/min Normal EST GFR - AA 69 Result Comment: GFR Calc LAB L501.1300 10-20 RATIO Normal BUN/CRE 19.6 LAB L501.2200 8.5-10.1 mg/dL CA Normal 9.0 LAB L501.5300 136-145 mmol/L NA Normal 141 LAB L501.5600 3.5-5.1 mmol/L K Normal 4.2 LAB L501.5900 98-107 mmol/L CL Normal 103 LAB L501.6100 21.0-32.0 mmol/L Normal CO2 30.0 LAB L501.6200 5-15 Normal GAP 8 Performed By: #### L500.2500 #### [facility] [address] [place], [address] LIVER PROFILE Collected: 08/18/2017 Status: F Source: [place] 11:48 AM [facility] REPOSITORY Order Comment: Order Date: 03/03/17 Order Info: 0788-1 - *Hepatic Function Panel Order Info: [id number] - *Lipid Profile CC PCP Comments: 12 hours fasting, may have water. TYPE CODE TESTS RESULT OUT OF RANGE REFERENCE UNITS LAB L501.1500 6.4-8.2 g/dL Normal T PROT 7.0 LAB L501.1800 3.2-5.0 g/dL Normal ALB 3.7 LAB L501.1950 2.2-4.2 g/dL Normal GLOB 3.3 LAB L501.4100 15-37 U/L Normal AST 33 LAB L501.4305 45-117 U/L Normal ALK P 80 LAB L501.4405 13-56 U/L Normal ALT 24 Result Comment: Please note revised ALT reference range effective 2017. LAB L501.4600 0.20-1.00 mg/dL Normal T BILI 1.00 LAB L501.4700 0.00-0.30 mg/dL Normal D BILI 0.24 Performed By: #### L500.3400 #### [facility] [address] [place], [address] LIPID PROFILE Collected: 08/18/2017 Status: F Source: [place] 11:48 AM [facility] REPOSITORY Order Comment: Order Date: 03/03/17 Order Info: [id number] - *Hepatic Function Panel Order Info: [id number] - *Lipid Profile CC PCP Comments: 12 hours fasting, may have water. TYPE CODE TESTS RESULT OUT OF RANGE REFERENCE UNITS LAB L501.4900 200 mg/dL Normal CHOL 186 Result Comment: <200 mg/dL Desirable 200-240 mg/dL Borderline >240 mg/dL High Risk LAB L501.5000 mg/dL Normal TRIG 101 Result Comment: The drugs N-Acetylcysteine and Metamizole may falsely depress this assay. Serum Triglycerides Reference Interval Normal <150 mg/dL Borderline high 150 - 199 mg/dL High 200 - 499 mg/dL Very High > or = 500 mg/dL LAB L501.6400 mg/dL Normal HDL 74 Result Comment: The drugs N-Acetylcysteine and Metamizole may falsely depress this assay. Reference Range HDL <40 mg/dL Low HDL Cholesterol HDL >or= 60 mg/dL High HDL Cholesterol LAB L501.6500 0-130 mg/dL Normal LDL 92 LAB L501.6600 5-40 mg/dL Normal VLDL 20 Performed By: #### L500.4100 #### [facility] [address] [place], [address] PROTIME W/INR Collected: 08/09/2017 Status: F Source: [place] 9:13 AM [facility] REPOSITORY TYPE CODE TESTS RESULT OUT OF REFERENCE UNITS RANGE LAB L9200.1001 11.9-14.4 SEC High PROTIME ISTAT 29.6 Result Comment: Reference Range 11.9 - 14.4 LAB L9200.2000 Normal INR ISTAT 2.60 Result Comment: Critical Value > 3.5 Performed By: #### L9200.0000 #### [facility] Point of Care [address] [place] [address] PACEMAKER CHECK Observed: 08/04/2017 Status: F Source: [place] 5:00 PM [facility] REPOSITORY [facility] [address] [place] [address] Pacemaker Check Date of Service: 07/19/17 1112 MR#: [id number] Acct: [id number] Name: BETTINA CHAMBERS Rep #: [id number] : 1945 From: Clair Raber Age/Sex: 71/F Location: [facility] Status: Signed Comments Summary Comments: Dual Chamber Pacemaker Evaluation: Interrogation shows 17 VHR episodes since last check 04/20/17. Longest episode on 07/06/17 for 26 secs. Stored e-grams show VHR @ 183 to 187 bpm. Left pectoral pocket/incision w/o s/s of infection or erosion. Pt offers no cardiac complaints. Presenting rhythm shows Ventricular paced with intermittent intrinsic @ 75 bpm, underlying atrial fib. ROAD ENGINEER FREIGHT=22.6%. Battery longevity approx 5.5 yrs. Lead impedance, sensing and pace/sense threshold remain stable. Increased Ventricular amplitude for 2x safety margin. Counters cleared. Next f/u appt scheduled for in 6 mos. Device Device Date Interviewed: 07/19/17 Follow-up Location: in office Interview Reason: routine follow up Tanker Service Attendant: Medtronic Name: Versa Model: VEDR01 Serial #: [id number] Implant Date: 12/29/11 Year(s): 5 Patient Characteristics Atrial Indication: sick sinus syndrome Ejection fraction %: 35 to 39 By: Echo Underlying rhythm: Atrial fibrillation Pacemaker Dependent: No Device Characteristics Device: Dual Chamber Type: Pacemaker Remote Follow-Up: No Device Physical Exam Yes Incision well healed Leads Lead #1 Tanker Service Attendant Lead 1: Medtronic Model Lead 1: 6940 Serial# Lead 1: [id number] Date Implanted Lead 1: 03/12/01 Position Lead 1: RA Lead #2 Tanker Service Attendant Lead 2: Medtronic Model Lead 2: 6944 Serial# Lead 2: [id number] Date Implanted Lead 2: 03/12/01 Position Lead 2: RV Diagnostics Pacing % RV Pacin.6 Arrhythmias Non-Sust Episodes: 3 Measurements Battery Voltage (V): 2.78 Magnet Rate (bmp): 85 Predicted Remaining Longevity (months or years): 5.5 years RV Measurements Signal Amplitude (mV): 2.0 Impedance (Ohms): 775 Threshold Voltage: 1.25 @ PW(ms): 0.4 Darin Settings Bradycardia Mode and Timing Settings Pacemaker Mode: VVIR Base Rate: 60 bpm Max Sensor Rate: 130 bpm Bradycardia Output and Sensitivity Settings Right Ventricle: 0.4 msec, Adaptive2.5 volts, 1 mV sensitivity. ?a and no Billing Codes PM Device Codes: PM Dev Prog Eval, Dual Assessment AND Plan Problems 1. Pacemaker Z95.0 Initial ICD placed 2000, ICD generator change November 2004, ICD Generator change 2005 2. Chronic atrial fibrillation I48.2 08/03/17 1741 <Electronically signed by Clair Crawford > Date Clair Crawford 08/04/17 1700<Electronically signed by Jamie Christina MD> Cosign Signature: Date (if applicable) Jamie Christina MD CC: CNCO Observed: 07/20/2017 Status: COMPLETED Source: [place] 10:38 AM [facility] REPOSITORY [facility] ID: [id number] Author: Mammography Coordinator Service: (none) Author Type: Physician Type: Letter Filed: 07/24/2017 11:31 PM Note Text: July 20, 2017 PID: [id number] Bettina Chambers [address] [place] [address] [place] [address] Dear Ms. Chambers, We are pleased to inform you that the results of your recent breast imaging exam on 07/18/2017 are normal. Early detection of cancer is very important. We also understand recommendations regarding breast cancer screening are controversial. Please discuss with your primary care provider which strategy is best for you and whether a mammogram is right for you. Your imaging studies and report will be kept on file at [facility] as part of your permanent medical record and are available for your continuing care. Thank you for allowing us to help in meeting your health care needs. Sincerely, Dr. Calvillo Interpreting Radiologist [facility]. (Normal over 40) [facility] SCREEN[place] Observed: 07/18/2017 Status: F Source: [place] 9:26 AM [facility] OTHER C[facility] REPOSITORY * * *Final Report* * * DATE OF EXAM: Jul 18 2017 9:26AM ASIF 0581 - [facility] [place] / PROCEDURE REASON: SCREENING * * * * Physician Interpretation * * * * #[id number] - [facility] SCREENING BILATERAL DIGITAL SCREENING MAMMOGRAM WITH CAD: 07/18/2017 HISTORY: Screening /Screening Mammogram - patient reports NO symptoms. RESULT: TECHNIQUE: The study was acquired using full field digital technology and interpreted from soft copy. Current study was also evaluated with a Computer Aided Detection (CAD). Comparison is made to exam dated: 08/12/2014 mammogram - [facility]. There are scattered fibroglandular elements in both breasts. There are benign calcifications in both breasts. No significant masses, calcifications, or other findings are seen in either breast. There has been no significant interval change. IMPRESSION: BENIGN FINDING There is no mammographic evidence of malignancy. A 1 year screening mammogram is recommended. Juan scherer/margie:07/20/2017 10:38:10 Director Of Outside Sales: Vicky ROSENBAUM(Grayson)(Marvin), [facility] letter sent: Normal over 40 Mammogram BI-RADS: 2 Benign finding Technical Recruiter: Margie Transcribe Date/Time: Jul 18 2017 9:16A Dictated by : JUAN CALVILLO DO This examination was interpreted and the report reviewed and electronically signed by: JUAN CALVILLO DO on Jul 20 2017 10:38AM EST [id number] CARDIOLOGY VISIT Observed: 06/30/2017 Status: F Source: [place] REPORT 10:53 AM [facility] REPOSITORY [facility] [address] [place] [address] OFFICE VISIT Date of Service: 06/30/17 MR#: [id number] Acct: [id number] Name: BETTINA CHAMBERS Rep #: [id number] : 1945 Provider: Joann Correa Age/Sex: 71/F Location: [facility] Status: Signed HPI HPI Details: BETTINA CHAMBERS, is a 71 F who presents to the office today for a cardiovascular follow-up. She has a history of persistent atrial fibrillation, hypertrophic cardiomyopathy with reduced ejection fraction of 25%, post ICD implantation and subsequent explantation at her request. This was changed to a permanent pacemaker. Echocardiogram in 2017 demonstrated severe asymmetrical septal hypertrophy. Normal LV size. Moderately severe segmental systolic dysfunction with an ejection fraction of 25%. Left atrium severely enlarged. Right atrium moderately enlarged. Moderate pulmonary hypertension. From a cardiac standpoint, patient is doing well. She has noted some weight gain, she does walk a mile twice a day. She does have some more SOB with exertion, she thinks that this is related to the weight gain. It has not limited her activity. She does not have any chest discomfort/heaviness/tightness. She does not have any worsening symptoms of shortness of breath. She does not have any orthopnea. She denies PND. She does not have any symptoms of congestive heart failure. She does not have any palpitations that she is aware of. She does not have any lightheadedness or dizziness. She does not have any near-syncope or syncope. She does not have any lower extremity edema. She does not have any symptoms of claudication. Intake Vital Signs06/30/17 Height 5 ft 5 in 06/30/17 Weight: 161 lb 06/30/17 Body Mass Index (BMI) 26.8 Intake Visit Reasons: 6 M FU Allergies amoxicillin Allergy (Verified 02/01/17 09:54) Unknown risedronate sodium [From Actonel] Allergy (Verified 02/01/17 09:54) Unknown metoprolol Adverse Reaction (Severe, Uncoded 06/26/17 11:57) Abdominal cramping, poor rate control Medications Aspirin [Aspirin, Baby] 81 mg PO DAILY@0800 01/22/15 [History Confirmed 06/30/17] Furosemide [Lasix] 20 mg PO BIDLX 01/22/15 [History Confirmed 06/30/17] Levothyroxine [Synthroid] 125 mcg PO DAILY 01/22/15 [History Confirmed 06/30/17] Warfarin [Coumadin ([facility])] 5 mg PO DAILY 01/22/15 [History Confirmed 06/30/17] Acetaminophen Liquid [Tylenol Liquid] 80 mg PO QHS 03/06/15 [History Confirmed 06/30/17] Magnesium Oxide [Magnesium] 1 tab PO DAILY 03/06/15 [History Confirmed 06/30/17] Guaifenesin/Dextromethorphan [Coricidin Hbp Softgel] 25 mg PO DAILY 02/01/17 [History Confirmed 06/30/17] Mag Hydrox/Al Hydrox/Simeth [Mylanta II] 30 ml PO PRN PRN 02/01/17 [History Confirmed 06/30/17] verapamil ER (PM) 100 mg capsule 24hr pellet CT,ext.release 100 mg PO QHS #90 cap 05/30/17 [Rx Confirmed 06/30/17] warfarin 5 mg tablet 5 mg PO QDAY #90 tab 05/30/17 [Rx Confirmed 06/30/17] clindamycin HCl 300 mg capsule See Label Instructions PO TID 06/26/17 [History Confirmed 06/30/17] diazepam 5 mg tablet PO 06/30/17 [History Confirmed 06/30/17] guaifenesin ER 600 mg tablet, extended release 12 hr 600 mg PO ONCE PRN 06/30/17 [History Confirmed 06/30/17] PFSH Medical History Hyperlipidemia (Chronic) Pacemaker (Chronic) Hypertrophic cardiomyopathy (Chronic) Systolic heart failure, 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 (Chronic) 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) Chronic atrial fibrillation (Chronic) Family History Other FH: sudden cardiac (SCD) Social History Smoking Status: Former smoker ROS Const Const: Negative for weakness, fatigue, fever(s) or headache(s) Eyes Eyes: Negative for blind spots, loss of peripheral vision or transient loss of vision ENT ENT: Negative for headache(s), Negative for dizziness, Negative for tinnitus, Negative for Nosebleed/epistaxis Cardio Chest Pain: No Palpitations: Positive for No Edema: None Muscle aches with walking: None Resp Respiratory: Positive for SOB with activity; negative for SOB at rest or SOB orthopnea\SOB lying down GI GI: Negative nausea, vomiting, heartburn or vomiting blood/hematemesis : Negative for hematuria Musc Musc: Negative for muscle aches/ myalgia Neuro Neuro: Negative for weakness, Negative for headache(s), Negative for dizziness, Negative for near syncope, Negative for syncope, Negative for lightheadedness Joe Hematologic/Lymphatic: Negative for easy bleeding Endo Endo: Negative for fatigue Cardiology Exam Const Appearance: cooperative, no acute distress and well developed Orientation: alert, awake and oriented x3 Head Head: normocephalic and atraumatic Mouth: moist mucous membranes Eyes General: appearance normal, both eyes and all related structures Conjunctivae: conjunctivae normal Pupils: PERRL EOM: EOM intact bilaterally Neck Neck: normal visual inspection, no lymphadenopathy and no JVD Carotids: Negative bruit Neck Mass: Negative Neck mass Chest Chest inspection: normal inspection of the chest, symmetric chest movement and Pacemaker/ICD Yes left pectoral incision Auscultation: Bilateral: Clear to Auscultation Cardio Palpation: normal PMI Rate: regular rate Rhythm: irregularly irregular Heart sounds: S1 normal and S2 normal; negative rub, gallop or murmur GI GI: normal to inspection, soft, no hepatosplenomegaly and bowel sounds present; negative tender Neuro General: alert, awake, oriented x3, CN's II-XI intact bilaterally and moves all extremities Extremities Pulses: Normal: Right Posterior Tibial Pulse, Left Posterior Tibial Pulse, Right Radial Pulse, Left Radial Pulse Lower Extremity Edema: None: Bilateral Psych Psychological: normal affect Assessment AND Plan 1. 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 We recommend that they continue with current aggressive medical management and risk factor modification. 2. Chronic atrial fibrillation I48.2 ANJU Christiansen Patient's heart rate is adequately controlled. We will continue to monitor this with her pacemaker interrogations. She is anticoagulated with a therapeutic INR goal of 2-3. 3. Hypertrophic cardiomyopathy I42.2 ANJU Christiansen Patient does have symptoms concerning for congestive heart failure. We will have her increase her Lasix to 40 mg twice a day for 3 days. She will call us back next week with an update on how she is feeling. Advised that if these symptoms occur again prior to next office visit that she should give us a call. Patient Instructions - ANJU Wynn Increase your lasix to 40 mg twice a day for 3 days. If this has not helped or if you symptoms return call us back. 4. Pure hypercholesterolemia E78.00; E78.0 Plan - ANJU Wynn Recent lipid profile demonstrates total cholesterol 160, HDL 77, LDL 73. Patient will continue with current medical management. 5. Pacemaker Z95.0 Initial ICD placed 2000, ICD generator change November 2004, ICD Generator change 2005 Plan - ANJU Wynn Pacemaker is functioning appropriately. We will continue to monitor at routine scheduled pacemaker interrogations. Plan Detail Additional Comments - ANJU Wynn The above patient was discussed with Dr. Christina, he agrees with plan of care. Thank you for allowing us to participate in patient's plan of care, if you have any questions please do not hesitate to call. This note was generated using a voice recognition system and there may be incorrect words, spelling or punctuation errors that were not noted when reviewing the office note prior to saving. 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 transplanted heart: shoshone-bannock heart Chronic atrial fibrillation I48.2 Hypertrophic cardiomyopathy I42.2 Pure hypercholesterolemia E78.00; E78.0 Hyperlipidemia type: pure hypercholesterolemia Pacemaker Z95.0 Coding Level of Care Code Off vis,est,level 4 Diagnoses Atherosclerosis of [place] coronary artery of shoshone[place]bannock heart without angina pectoris I25.10 [place] vs. transplanted heart: shoshone-bannock heart Chronic atrial fibrillation I48.2 Hypertrophic cardiomyopathy I42.2 Pure hypercholesterolemia E78.00; E78.0 Hyperlipidemia type: pure hypercholesterolemia Pacemaker Z95.0 06/30/17 1004 <Electronically signed by Joann RENE> Date Joann RENE 06/30/17 1053<Electronically signed by Jamie Christina MD> Cosigner Signature: Date (if applicable) Jamie Christina MD CC: Coleman Whitaker MD OFFICE VISIT REPORT Observed: 06/12/2017 Status: F Source: [place] 7:31 AM [facility] [place] [address] OFFICE VISIT Date of Service: MR#: [id number] Acct: [id number] Patient: BETTINA CHAMBERS Rep #: [id number] : 1945 Provider: Clair Crawford Age/Sex: 71/F Location: [facility] Status: Signed Comments Summary Comments: Dual Chamber Pacemaker Evaluation: Interrogation shows 3 VHR episodes since last check 01/18/17. Stored e-grams show Atrial fib with RVR. Left pectoral pocket/incision w/o s/s of infection or erosion. Pt offers no cardiac complaints. Presenting rhythm shows atrial fib @ 84 bpm. Darin pacing remains programmed VVIR @ 60 ppm d/t chronic atrial fib. Battery longevity approx [address] ENGINEER FREIGHT=14.8%. Lead impedance, sensing and pace/sense threshold remain stable. Ventricular sensing is low but consistent with prior measurements. No parameter changes made. Counters cleared. Next f/u appt scheduled for in 3 mos. Device Device Date Interviewed: 04/20/17 Follow-up Location: in office Interview Reason: routine follow up Tanker Service Attendant: Medtronic Name: Versa Model: VEDR01 Serial #: [id number] Implant Date: 12/29/11 Year(s): 5 Patient Characteristics Atrial Indication: sick sinus syndrome Ejection fraction %: 35 to 39 By: Echo Underlying rhythm: Atrial fibrillation Pacemaker Dependent: No Device Characteristics Device: Dual Chamber Type: Pacemaker Remote Follow-Up: No Device Physical Exam Yes Incision well healed Leads Lead #1 Tanker Service Attendant Lead 1: Medtronic Model Lead 1: 6940 Serial# Lead 1: [id number] Date Implanted Lead 1: 03/12/01 Position Lead 1: RA Lead #2 Tanker Service Attendant Lead 2: Medtronic Model Lead 2: 6944 Serial# Lead 2: [id number] Date Implanted Lead 2: 03/12/01 Position Lead 2: RV Diagnostics Pacing % RV Pacin.7 Arrhythmias Non-Sust Episodes: 3 Measurements Battery Voltage (V): 2.78 Magnet Rate (bmp): 85 Predicted Remaining Longevity (months or years): 6 years RV Measurements Impedance (Ohms): 898 Threshold Voltage: 1.25 @ PW(ms): 0.4 Tachy Settings VF ms (bpm) FVT ms (bpm) VT ms (bpm) Monitor Monitor Only ms (bpm) VF Therapies VF Therapy Status On/Off On/Off On/Off On/Off On/Off On/Off Energy Pathway ATP: During charging FVT Therapies FVT Therapy Status On/Off On/Off On/Off On/Off On/Off On/Off VT Therapies FVT Therapy Status On/Off On/Off On/Off On/Off On/Off On/Off Comments: Darin Settings Darin Settings Pacemaker Mode VVIR Lower Rate Limit (bpm) 60 Hysteresis Rate (bpm) Max Track Rate (bpm) Max Sensor Rate (bpm) 130 Max AV Delay (msec) Max PV Delay (msec) Max PVARP (msec) Output/Sensing V/PW (ms) adaptive 1.25/0.4 Sensitivity RA RV LV Comments: Billing Codes PM Device Codes: PM Dev Prog Eval, Dual 06/12/17 0731 <Electronically signed by Jamie Christina MD> Date Jamie Christina MD Cosigner Signature: Date (if applicable) CC: ALLERGIES ALLERGIES DATE TYPE / CODE NAME / CODE REACTION SEVERITY SOURCE Drug amoxicillin/F0060 Unknown Unknown [facility]105299[facility] risedronate Unknown Unknown [facility]/333703697( [id number] Miscellaneous metoprolol Abdominal [facility] Allergy/445530603( cramping, poor Community SNOMED CT) rate control Hospital Repository DRUG/025801197(SNO RISEDRONATE RASH [place] [address]) Clinic Other [place] Repository DRUG AMOXICILLIN RASH [place] 2 INGREDI/339981338( Clinic Other SNOMED CT) [place] Repository DRUG PREDNISOLONE SHORTNESS OF [place] INGREDI/300512493( Clinic Other SNOMED CT) [place] Repository ENCOUNTERS ENCOUNTERS ADMIT/DISCHARGE ACCOUNT ADMITTING ENCOUNTER LOCATION SOURCE NUMBER CLASS 05/31/2018 [id number] Ambulatory [facility] ing:LAB Repository 04/30/2018/04/30/20 [id number] Ambulatory [address] ing:LAB Repository 04/24/2018/04/24/20 [id number] Ambulatory BMSBuilding:B [facility] [place] Repository 04/10/2018/04/30/20 [id number] Ambulatory [address] Main [place] Repository 04/10/2018/04/10/20 [id number] Ambulatory [address] Other [place] Repository 02/28/2018/02/29/20 [id number] Ambulatory [address] ing:LAB Repository 01/30/2018/01/31/20 [id number] Ambulatory BMSBuilding:B [facility] [place] Repository 01/23/2018/01/24/20 [id number] Ambulatory BMSBuilding:B [place] [facility] [place] Repository 01/23/2018/01/24/20 [id number] Ambulatory [facility] ing:LAB Repository 01/01/2018/01/02/20 [id number] Ambulatory [facility] [facility] ing:LAB Repository 12/05/2017/12/06/19 [id number] Ambulatory [address] ing:LAB Repository 11/07/2017/11/08/19 [id number] Ambulatory [address] ing:LAB Repository 09/29/2017 [id number] Ambulatory [facility] Repository 09/26/2017 [id number] Ambulatory [facility] ing:MTLAB Repository 09/19/2017/09/20/19 [id number] Ambulatory [place] 18 [facility] ing:SDC Repository 08/18/2017 [id number] Ambulatory [place] [facility] ing:MTLAB Repository 08/09/2017/08/10/19 [id number] Ambulatory [place] [facility] [place] 18 [facility] ing:LAB Repository 07/19/2017/07/20/19 [id number] Ambulatory BMSBuilding:B [facility] 18 [facility] Repository 07/18/2017 [id number] Ambulatory [facility] Repository 06/30/2017/06/30/19 [id number] Ambulatory BMSBuilding:B [place] 18 [facility] Repository 04/20/2017 [id number] Ambulatory BMSBuilding:B [facility] MS.[facility] Repository PAYERS PAYERS ENCOUNTER GUARANTOR PAYER SUBSCRIBER SOURCE 05/31/2018 BETTINA Wong Primary BETTINA M [facility] [place] [id number] Insurance:MEDICARE CAMPBELLDOB: [facility] A [facility] [id number] Number: Repository [address]Lri: 330 [id number] [phone] () Date:2017-06-16 05/31/2018 Secondary EDYTHE M [place] Insurance:AARPPolicy CAMPBELLDOB: [facility] Number: [id number] Hospital [id number] Repository Date:1133-58-22XQ [address], [place] [address]NN: 05/31/2018 Tertiary NOT GIVENUNK [place] Insurance:SELF PAY [facility] Number: Effective Repository Date:2018-05-14 04/30/2018 BETTINA Wong Primary TARIQE M [place] [id number] Insurance:MEDICARE CAMPBELLDOB: [facility] PART A [facility] [id number] Number: Repository [address]Cac: 330 [id number] [phone] (HP) Date:2017-06-16 04/30/2018 Secondary BETTINA Wong [place] Insurance:AARPPolicy CAMPBELLDOB: Community Number: [id number] Hospital [id number] Repository Date:4711-67-98MI [facility] [place]697[place], [place] [address]LG: 04/30/2018 Tertiary NOT GIVENUNK [place] Insurance:SELF PAY [facility] Number: Effective Repository Date:2018-03-15 04/24/2018 BETTINA M Primary EDLATAE M [place] [id number] Insurance:MEDICARE CAMPBELLDOB: Community [place] A [facility] [id number] Number: Repository [address]Giy: 330 [id number] [phone] () Date:2018-01-23 04/24/2018 Secondary BETTINA M [place] Insurance:AARPPolicy CAMPBELLDOB: Community Number: [id number] Hospital [id number] Repository Date:4219-24-66EG [facility] 368[place]IGQ[place], [place] [address]SO: 04/24/2018 Tertiary NOT GIVENUNK [place] Insurance:SELF PAY [facility]: Effective Repository Date:2018-04-24 02/28/2018 BETTINA Wong Primary BETTINA M [facility] [place] [id number] Insurance:MEDICARE CAMPBELLDOB: Community [place] A [facility] [id number], [place] Number: Repository [address]Usa: 330 [id number] [phone] (HP) Date:2017-06-16 02/28/2018 Secondary BETTINA M [facility] Insurance:AARPPolicy CAMPBELLDOB: Community Number: [id number] Hospital [id number] Repository Date:0836-39-55QZ [facility] 385[place], [place] [address]QQ: 02/28/2018 Tertiary NOT GIVENUNK [facility] [place] Insurance:SELF PAY [facility] Number: Effective Repository Date:2018-02-14 01/30/2018 EDYTHE M Primary EDYTHE M [place] [id number] Insurance:MEDICARE CAMPBELLDOB: Community [place] A [facility] [id number] Number: Repository [address]Cag: 330 [id number] [phone] () Date:2017-06-30 01/30/2018 Secondary BETTINA Wong [facility] [place] Insurance:AARPPolicy CAMPBELLDOB: Community Number: [id number] Hospital [id number] Repository Date:8372-55-69JY [address]XAQWQEX, [place] [address]JK: 01/30/2018 Tertiary NOT GIVENUNK [facility] [place] Insurance:SELF PAY [facility] Number: Effective Repository Date:2018-01-30 01/23/2018 BETTINA Wong Primary BETTINA Wong [place] [id number] Insurance:MEDICARE CAMPBELLDOB: Community [place] A [facility] [id number] Number: Repository [address]Kgn: 330 [id number] [phone] () Date:2017-07-19 01/23/2018 Secondary BETTINA Wong [place] Insurance:AARPPolicy CAMPBELLDOB: Community Number: [id number] Hospital [id number] Repository Date:3090-28-32SB [address]YBSVNFD, [place] [address]AT: 01/23/2018 Tertiary NOT GIVENUNK [place] Insurance:SELF PAY [facility] Number: Effective Repository Date:2018-01-23 01/23/2018 BETTINA Wong Primary BETTINA Wong [facility] [place] [id number] Insurance:MEDICARE CAMPBELLDOB: Community [place] A [facility] [id number] Number: Repository [address]Bvi: 330 [id number] [phone] () Date:2017-06-16 01/23/2018 Secondary EDWILLIE M [facility] [place] Insurance:AARPPolicy CAMPBELLDOB: Community Number: [id number] Hospital [id number] Repository Date:2552-75-23WG [address]JUQNXMJ, [place] [address]FK: 01/23/2018 Tertiary NOT GIVENUNK [place] Insurance:SELF PAY [facility] Number: Effective Repository Date:2018-01-16 01/01/2018 BETTINA Wong Primary BETTINA Wong [place] [id number] Insurance:MEDICARE CAMPBELLDOB: Community [place] A [facility] [id number], [place] Number: Repository [address]Xpl: 330 [id number] [phone] (HP) Date:2017-06-16 01/01/2018 Secondary BETTINA Wong [facility] [place] Insurance:AARPPolicy CAMPBELLDOB: Community Number: [id number] Hospital [id number] Repository Date:8225-75-74PT [facility] 512323HLDLJMM, [place] [address]PE: 01/01/2018 Tertiary NOT GIVENUNK [place] Insurance:SELF PAY [facility] Number: Effective Repository Date:2017-12-14 12/05/2017 BETTINA Wong Primary BETTINA Wong [place] [id number] Insurance:MEDICARE CAMPBELLDOB: Community [place] A [facility] [id number], [place] Number: Repository [address]Gih: 330 [id number] [phone] (HP) Date:2017-06-16 12/05/2017 Secondary BETTINA Wong [place] Insurance:AARPPolicy CAMPBELLDOB: Community Number: [id number] Hospital [id number] Repository Date:9219-07-93YY [facility] 705012WEVEK[place], [place] [address]BF: 12/05/2017 Tertiary NOT GIVENUNK [facility] [place] Insurance:SELF PAY [facility] Number: Effective Repository Date:2017-11-10 11/07/2017 BETTINA M Primary BETTINA Wong [place] [id number] Insurance:MEDICARE CAMPBELLDOB: Community [place] A [facility] [id number], [place] Number: Repository [address]Jcq: [phone] [id number] [phone] (HP) Date:2017-06-16 11/07/2017 Secondary EDYTHE M Giov[place] Insurance:AARPPolicy CAMPBELLDOB: Community Number: [id number] Hospital [id number] Repository Date:6177-10-84EG [address]ZRCETZW, [place] [address]XI: 11/07/2017 Tertiary NOT GIVENUNK [facility] [place] Insurance:SELF PAY [facility] Number: Effective Repository Date:2017-08-14 09/26/2017 BETTINA Wong Primary BETTINA Wong [place] [id number] Insurance:MEDICARE CAMPBELLDOB: Community [place] A olic [id number], [place] Number: Repository [address]Lsw: [phone] [id number] [phone] () Date:2017-09-26 09/26/2017 Secondary BETTINA Wong Goiv[place] Insurance:AARPPolicy CAMPBELLDOB: Community Number: [id number] Hospital [id number] Repository Date:6229-87-53MA [address]YGHLSTR, [place] [address]TL: 09/26/2017 Tertiary NOT GIVENUNK [place] Insurance:SELF PAY [facility] Number: Effective Repository Date:2017-09-26 09/19/2017 BETTINA Wong Primary BETTINA Akhtar [id number] Insurance:MEDICARE CAMPBELLDOB: Community [place] A [facility] [id number], [place] Number: Repository [address]Byd: [phone] [id number] [phone] () Date:2017-08-24 09/19/2017 Secondary BETTINA Wong [place] Insurance:AARPPolicy CAMPBELLDOB: Community Number: [id number] Hospital [id number] Repository Date:2889-07-60JX [address]OJXDUMK, [place] [address]ET: 09/19/2017 Tertiary NOT GIVENUNK [place] Insurance:SELF PAY [facility] Number: Effective Repository Date:2017-08-24 08/18/2017 BETTINA Wong Primary BETTINA Wong [facility] [place] [id number] Insurance:MEDICARE CAMPBELLDOB: Community [place] A BPolicy [id number], [place] Number: Repository [address]Tvf: 330 [id number] [phone] (HP) Date:2017-08-18 08/18/2017 Secondary EDWILLIE Wong Giov[place] Insurance:AARPPolicy CAMPBELLDOB: Community Number: [id number] Hospital [id number] Repository Date:6871-20-04JA [address]ZJTHYDT, [place] [address]QM: 08/18/2017 Tertiary NOT GIVENUNK [place] Insurance:SELF PAY [facility] Number: Effective Repository Date:2017-08-18 08/09/2017 BETTINA M Primary BETTINA M Giovana [id number] Insurance:MEDICARE CAMPBELLDOB: Community [place] A [address]05[address], [place] Number: Repository [address]Diu: 330 [id number] [phone] (HP) Date:2017-06-16 08/09/2017 Secondary EDLATAE M Giovana Insurance:AARPPolicy CAMPBELLDOB: Community Number: [id number] Hospital [id number] Repository Date:7433-23-64QF [address]QFZHAPX, [place] [address]YI: 08/09/2017 Tertiary NOT GIVENUNK [facility] Insurance:SELF PAY [facility] Number: Effective Repository Date:2017-06-16 07/19/2017 BETTINA M Primary EDLATAE M [facility] [place] [id number] Insurance:MEDICARE CAMPBELLDOB: Community [place] A [address], [place] Number: Repository [address]Krl: 330 [id number] [phone] (HP) Date:2017-04-20 07/19/2017 Secondary EDLATAE M [facility] [place] Insurance:AARPPolicy CAMPBELLDOB: Community Number: [id number] Hospital [id number] Repository Date:3359-46-23TU [address]FCOLYQB, [place] [address]QI: 07/19/2017 Tertiary NOT GIVENUNK [place] Insurance:SELF PAY [facility] Number: Effective Repository Date:2017-04-20 06/30/2017 BETTINA Wong Primary BETTINA Wong Giov[place] [id number] Insurance:MEDICARE CAMPBELLDOB: Community [place] A [facility] [id number], [place] Number: Repository [address]Hbk: 330 [id number] [phone] (HP) Date:2017-04-19 06/30/2017 Secondary BETTINA Wong Giov[place] Insurance:AARPPolicy CAMPBELLDOB: Community Number: [id number] Hospital [id number] Repository Date:0452-48-00UN [address]QZBNNXO, [place] [address]JB: 06/30/2017 Tertiary NOT GIVENUNK [facility] [place] Insurance:SELF PAY [facility] Number: Effective Repository Date:2017-04-19 04/20/2017 BETTINA M Primary BETTINA Wong Giov[place] [id number] Insurance:MEDICARE CAMPBELLDOB: Community [place] PART A [address] Number: Repository [id number]: 330 [id number] [phone] (HP) Date:2017-04-20 04/20/2017 Secondary BETTINA Wong [place]ov[place] Insurance:AARPPolicy CAMPBELLDOB: Community Number: [id number] Hospital [id number] Repository Date:3337-89-98KO [address]OFSRMOW, [place] [address]VW: 04/20/2017 Tertiary NOT GIVENUNK [facility] [place] Insurance:SELF PAY [facility] Number: Effective Repository Date:2017-04-20
== END 2018-04-30 09:00 | disposition home or self-care (01) ==
LOC: LAB 08:28
PROVIDERS: Referring Provider Internal Medicine Cardiovascular Disease; Visit Provider Internal Medicine Cardiovascular Disease
DX: I48.2 Chronic atrial fibrillation (principal); Z79.01 Long term (current) use of anticoagulants
CPT/HCPCS: 36416; 85610

== ENCOUNTER 2018-05-31 08:08 | Outpatient (RCR) | payer MEDICARE, OTHER, SELFPAY ==
[2018-01-30 10:28] VITALS: BMI 26.6
[2018-05-31 08:35] LABS: Prothrombin Time Fingerstick 36.3 SEC (11.9-14.4)
--- OUTSIDE RECORDS SUMMARY | 2018-08-04 20:49 | XMS RPT_ITS ---
:1945 Author Organization OHIP Support Name Relationship Address Phone BRIDGET EMERSON Unavailable [address] + [place] [address] OSVALDO CHAMBERS Unavailable [address] + [place] [address] R Unavailable Unavailable Unavailable BRIDGET EMERSON Unavailable [address] + [place] [address] OSVALDO CHAMBESR Unavailable [address] + [place] [address] R Unavailable Unavailable Unavailable BRIDGET EMERSON Unavailable [address]KE + [place] [address] OSVALDO CHAMBERS Unavailable [address] + [place] [address] R Unavailable Unavailable Unavailable BRIDGET EMERSON Unavailable [address] + [place] [address] OSVALDO CHAMBERS Unavailable [address] + [place] [address] R Unavailable Unavailable Unavailable BRIDGET EMERSON Unavailable [address] + [place] [address] OSVALDO CHAMBERS Unavailable [address] + [place] [address] R Unavailable Unavailable Unavailable BRIDGET EMERSON Unavailable [address] + [place] [address] OSVALDO CHAMBERS Unavailable [address] + [place] [address] R Unavailable Unavailable Unavailable BRIDGET EMERSON Unavailable [address] + [place] [address] OSVALDO CHAMBERS Unavailable [address] + [place] [address] R Unavailable Unavailable Unavailable BRIDGET EMERSON Unavailable [address] + [place] [address] OSVALDO CHAMBERS Unavailable [address] + [place] [address] R Unavailable Unavailable Unavailable KI, BRIDGET Unavailable [address] + [place] [address] DUDLEYALEXKade Unavailable [address] + [place] [address] R Unavailable Unavailable Unavailable KI, BRIDGET Unavailable [address] + [place] [address] DUDLEYALEXE Unavailable [address] + [place] [address] R Unavailable Unavailable Unavailable KI, BRIDGET Unavailable [address] + [place] [address] DUDLEYALEXKade Unavailable [address] + [place] [address] R Unavailable Unavailable Unavailable KI, BRIDGET Unavailable [address] + [place] [address] DUDLEYALEXE Unavailable [address] + [place] [address] R Unavailable Unavailable Unavailable KI, BRIDGET Unavailable [address] + [place] [address] DUDLEY ALEXKade Unavailable [address] + [place] [address] R Unavailable Unavailable Unavailable KI, BRIDGET Unavailable [address]KE + [place] [address] DUDLEYALEXKade Unavailable [address] + [place] [address] R Unavailable Unavailable Unavailable KI, BRIDGET Unavailable NA + [place], [place] OSVALDO CHAMBERS Unavailable NA + [place], [place] R Unavailable Unavailable Unavailable KI BRIDGET Unavailable NA + [place], [place] OSVALDO CHAMBERS Unavailable NA + [place], [place] R Unavailable Unavailable Unavailable KI, BRIDGET Unavailable [address] + [place] [address] OSVALDO CHAMBERS Unavailable [address] + [place] [address] R Unavailable Unavailable Unavailable Care Team Providers Name Role Phone RITESH WHITAKER Referring Unavailable RITESH WHITAKER Referring Unavailable ADI DUONG Referring Unavailable ADI DUONG Attending Unavailable Jamie Christina Attending Unavailable Sanford, Jamie Referring Unavailable Whitaker, Coleman Primary Care Unavailable BRIDGET COLEMAN Consulting Unavailable Clair Crawford Attending Unavailable Whitaker, Coleman Referring Unavailable Whitaker, Coleman Primary Care Unavailable Clair Crawford Attending Unavailable Sanford, Jamie Attending Unavailable Sanford, [place] Referring Unavailable BRIDGET COLEMAN Primary Care Unavailable BRIDGET COLEMAN Consulting Unavailable Sanford, [place] Attending Unavailable Sanford, [place] Referring Unavailable BRIDGET COLEMAN Consulting Unavailable BRIDGET COLEMAN Primary Care Unavailable Sanford, Jamie Attending Unavailable Whitaker, Coleman Referring Unavailable Whitaker, Coleman Primary Care Unavailable Sanford, Jamie Attending Unavailable Sanford, Jamie Referring Unavailable Whitaker, Coleman Primary Care Unavailable BRIDGET COLEMAN Consulting Unavailable San[place], Jamie Attending Unavailable Sanford, [place] Referring Unavailable Whitaker, Coleman Primary Care Unavailable Sanford, Jamie Attending Unavailable Sanford, Jamie Referring Unavailable Whitaker, Coleman Primary Care Unavailable Helio Lantigua Attending Unavailable WartmannHelio Referring Unavailable Whitaker, Coleman Primary Care Unavailable Sanford, Jamie Attending Unavailable Whitaker, Coleman Primary Care Unavailable Sanford, Jamie Attending Unavailable Sanford, [place] Referring Unavailable Whitaker, Coleman Primary Care Unavailable YvetteClair Attending Unavailable Whitaker, Coleman Referring Unavailable Whitaker, Coleman Primary Care Unavailable Joann Correa Attending Unavailable Whitaker, Coleman Referring Unavailable Whitaker, Coleman Primary Care Unavailable Sanford, Jamie Attending Unavailable Sanford, Jamie Referring Unavailable Whitaker, Coleman Primary Care Unavailable Sanford, [place] Attending Unavailable Sanford, [place] Referring Unavailable BRIDGET COLEMAN Primary Care Unavailable BRIDGET COLEMAN Consulting Unavailable Clair Crawford Attending Unavailable Whitaker, Coleman Referring Unavailable PROBLEMS PROBLEMS DATE TYPE CONDITION / CODE ATTENDING STATUS SOURCE Unknown I48.2 - Chronic atrial Sanford, 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[facility] fibrillation / Community I48.2(ICD-10) Hospital Repository Active Pain, unspecified / NA Active [facility] R52(ICD-10) Clinic Other [place] Repository Unknown E78.5 - Hyperlipidemia, SanfordCam orellanaril Active [facility] unspecified / Community E78.5(ICD-10) Hospital Repository Unknown 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 SanfordCam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[facility] (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 / Community Z79.899(ICD-10) Hospital Repository Unknown 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 Sanford 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[facility] (current) use of Community anticoagulants / Hospital Z79.01(ICD-10) Repository Unknown E03.9 - Hypothyroidism, Sanford, [place] Active [facility] unspecified / Community E03.9(ICD-10) Hospital Repository Unknown I42.2 - Other Sanofrd, [place] Active [facility] hypertrophic Community cardiomyopathy / Hospital I42.2(ICD-10) Repository Unknown I51.9 - Heart disease, Sanford, 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[facility] unspecified / Community I51.9(ICD-10) Hospital Repository Unknown 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, [place] Active [facility] heart disease of [place] Community coronary artery without Hospital angina pectoris / Repository I25.10(ICD-10) Unknown Z95.0 - Presence of Sanford, 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[facility] cardiac pacemaker / Community Z95.0(ICD-10) Hospital Repository Active Cramp and spasm / NA Active [facility] R25.2(ICD-10) Clinic Other [place] Repository Active Encounter for screening NA Active [facility] mammogram for malignant Clinic Other neoplasm of breast / [place] Z12.31(ICD-10) Repository Unknown E78.00 - Pure Sunny, Active [facility] hypercholesterolemia, Joann M Community unspecified / Hospital E78.00(ICD-10) Repository Unknown E78.0 - Pure Correa, Active [facility] hypercholesterolemia / Joann M Community E78.0(ICD-10) Hospital Repository PROCEDURES PROCEDURES No Procedure Records FoundRESULTS RESULTS PROTIME W/INR Collected: 05/31/2018 Status: F Source: [place] FINGERSTICK 8:28 AM [facility] REPOSITORY TYPE CODE TESTS RESULT OUT OF REFERENCE UNITS RANGE LAB L9200.1001 11.9-14.4 SEC High PROTIME ISTAT 36.3 Result Comment: Reference Range 11.9 - 14.4 LAB L9200.2000 Normal INR ISTAT 3.20 Result Comment: Critical Value > 3.5 Performed By: #### L9200.0000 #### [facility] Point of Care [address] [place] [address] PROTIME W/INR Collected: 04/30/2018 Status: F Source: [place] FINGER[place] 8:42 AM [facility] REPOSITORY TYPE CODE TESTS RESULT OUT OF REFERENCE UNITS RANGE LAB L9200.1001 11.9-14.4 SEC High PROTIME ISTAT 38.0 Result Comment: Reference Range 11.9 - 14.4 LAB L9200.1999 Normal INR ISTAT 3.40 Result Comment: Critical Value > 3.5 Performed By: #### L9200.0000 #### [facility] Point of Care [address] [place] [address] PACEMAKER CHECK Observed: 04/26/2018 Status: F Source: [place] 11:16 AM [facility] REPOSITORY [facility] [address] [place] [address] Pacemaker Check Date of Service: 04/24/18 1255 MR#: [id number] Acct: [id number] Name: BETTINA CHAMBERS Marvin Rep #: [id number] : 1945 From: Clair Crawford Age/Sex: 72/F Location: [facility] Status: Signed Billing Codes PM Device Codes: PM Dev Prog Eval, Dual 04/24/18 1257 <Electronically signed by Clair Crawford > Date Clair Crawford 04/26/18 1116<Electronically signed by Jamie Christina MD> Cosigner Signature: Date (if applicable) Jamie Christina MD CC: PROGRESS Observed: 04/10/2018 Status: COMPLETED Source: [place] 2:45 PM CLINIC OTHER CAMPUS REPOSITORY HNO ID: [id number] Author: Sanjuanita (Ct) FRANK Gutierrez Service: (none) Author Type: Clinical Community Midwife Type: Progress Notes Filed: 04/10/2018 2:46 PM Note Text: NAME:Bettina Chambers DATE: April 10, 2018 CCF#: [id number] Lower Extremity X-Ray(s): Knee, AP / Lat / Tunne / Merchant Left and Wt. Bearing COMPLETED TECH ID SIGN: SOFIA CHAMPION PROGRESS Observed: 04/10/2018 Status: COMPLETED Source: [place] 1:30 PM [facility] REPOSITORY HNO ID: [id number] Author: Adi Duong Service: (none) Author Type: Physician Type: Progress Notes Filed: 04/26/2018 5:32 PM Note Text: Adi Duong MD Department of Orthopaedics Orthopaedics [address] [place] [address] Dept: [phone] April 10, 2018 CHIEF COMPLAINT: New Patient [...] PREDOMINANT DEGENERATIVE CHANGES OF THE LEFT KNEE. Machine Accountant: PERI ? Transcribe Date/Time: Apr 11 2018 ?7:16A Dictated by : EVANGELIST GUNTER MD This examination was interpreted and the report reviewed and electronically signed by: EVANGELIST GUNTER MD on Apr 11 2018 ?7:18AM ?EST Results-Findings * * *Final Report* * * DATE OF EXAM: Apr 10 2018 12:43PM ? MDO ? 5202 ?- ?XR KNEE 4V AP/PA BOTH+LAT/BRAULIO LT ?/ PROCEDURE REASON: [id number] ?? ? * * * * Physician [...] HX 1994 - KNEE ARTHROSCOPY/SURGERY 1987 - [place] ANESTH,PACEMAKER INSERTION Permanent Pacemaker defibrillatior- last time [...] 50 mcg/actuation NASAL nasal spray Use 1 [place] in each nostril once daily. aspirin, enteric [...] electronic medical record. SELF Ritesh Whitaker MD [address] [place] [address] This note was partially generated using Vilynx voice recognition system, and there may be some incorrect words, spellings, and punctuation that were not noted in checking the note before saving. Adi Duong MD CNOV Observed: 04/10/2018 Status: COMPLETED Source: [place] 1:15 PM [facility] REPOSITORY Office Visit (ORMDNA) BETTINA CHAMBERS ([id number]) 1945 F Date Time Provider Department 04/10/18 [...] Adi Duong MD Department of Orthopaedics Orthopaedics [address] [place], [place] [address] Dept: [phone] April 10, 2018 CHIEF COMPLAINT: New Patient [...] PREDOMINANT DEGENERATIVE CHANGES OF THE LEFT KNEE. Machine Accountant: DYLANB ? Transcribe Date/Time: Apr 11 2018 ?7:16A Dictated by : EVANGELIST GUNTER MD This examination was interpreted and the report reviewed and electronically signed by: EVANGELIST GUNTER MD on Apr 11 2018 ?7:18AM ?EST Results-Findings * * *Final Report* * * DATE OF EXAM: Apr 10 2018 12:43PM ? MDO ? 5202 ?- ?XR KNEE 4V AP/PA BOTH+LAT/BRAULIO LT ?/ PROCEDURE REASON: [id number] ?? ? * * * * Physician [...] HX 1994 - KNEE ARTHROSCOPY/SURGERY 1987 - [place] ANESTH,PACEMAKER INSERTION Permanent Pacemaker defibrillatior- last time [...] 50 mcg/actuation NASAL nasal spray Use 1 [place] in each nostril once daily. aspirin, enteric [...] electronic medical record. SELF Ritesh Whitaker MD [address] [place] [address] This note was partially generated using Vilynx voice recognition system, and there may be [...] * FLUTICASONE 50 MCG/ACTUATION * Use 1 [place] in each nostril o* * FUROSEMIDE 20 [...] 04/26/18 PROGRESS Observed: 04/10/2018 Status: COMPLETED Source: [place] 1:08 PM [facility]IC MAIN [facility]AMPUS REPOSITORY HNO ID: [id number] Author: Sabrina HyattRn)(Hist) DAPHNEY Ocasio Service: (none) [...] 4V AP/PA Observed: 04/10/2018 Status: F Source: [facility]+LAT/BRAULIO LT 12:43 PM CLINIC OTHER CAMPUS REPOSITORY * * *Final Report* * * DATE OF EXAM: Apr 10 2018 12:43PM STACI 5202 - XR KNEE 4V AP/PA BOTH+LAT/BRAULIO LT / PROCEDURE REASON: [id number] * * * * Physician Interpretation * [...] PREDOMINANT DEGENERATIVE CHANGES OF THE LEFT KNEE. Machine Accountant: PERI Transcribe Date/Time: Apr 11 2018 7:16A Dictated by : EVANGELIST GUNTER MD This examination was interpreted and the report reviewed and electronically signed by: EVANGELIST GUNTER MD on Apr 11 2018 7:18AM EST [id number] THYROID STIM HORMONE Collected: 02/28/2018 Status: F Source: [facility] (TSH) 8:37 AM [facility] REPOSITORY TYPE CODE TESTS RESULT OUT OF RANGE REFERENCE UNITS LAB L501.9520 0.358-3.74 uIU/mL Normal TSH 1.92 Performed By: #### L501.9520 #### [facility] [address] [place], [place], [address] PROTHROMBIN TIME W/INR Collected: 02/28/2018 Status: F Source: [place] 8:30 AM [facility] REPOSITORY TYPE CODE TESTS RESULT OUT OF RANGE REFERENCE UNITS LAB L300.4150 11.7-14.9 SECONDS High PROTIME 29.3 LAB L300.4200 Normal INR 2.8 Performed By: #### L300.3900 #### [facility] [address] [place], [address] LIVER PROFILE Collected: 02/28/2018 Status: F Source: [place] 8:30 AM [facility] REPOSITORY TYPE CODE TESTS RESULT OUT OF [...] 0.23 Performed By: #### L500.3400, L500.4100 #### [facility] [address] [facility] [place], [place], [address] LIPID PROFILE Collected: 02/28/2018 Status: F Source: [place] 8:30 AM [facility] REPOSITORY TYPE CODE TESTS RESULT OUT OF [...] 14 Performed By: #### L500.3400, L500.4100 #### [facility] [address] [place], [address] CARDIOLOGY VISIT Observed: 01/30/2018 Status: F Source: [place] REPORT 10:48 AM [facility] REPOSITORY [facility] [address] [place] [address] OFFICE VISIT Date of Service: 01/30/18 MR#: [id number] Acct: [id number] Name: BETTINA CHAMBERS Rep #: [id number] : 1945 Provider: Jamie Christina MD Age/Sex: 72/F Location: [facility] Status: Signed [facility] Chief Complaint: Follow-up visit. Details: BETTINA CHAMBERS, [...] brachial Intake Visit Reasons: 6 M FU Rn Acute Required: No Accompanied by: none Is patient [...] cardiomyopathy (Chronic) Systolic heart failure, chronic (Chronic) intermediate current use of anticoagulant (Chronic) Chronic atrial [...] of 2-3. 4. 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 [place] [address] Pacemaker Check Date of Service: 01/23/18 1049 MR#: [id number] Acct: [id number] Name: BETTINA CHAMBERS Rep #: [id number] : 1945 From: Clair Crawford Age/Sex: 72/F Location: [facility] Status: Signed Billing Codes PM Device Codes: PM Dev Prog Eval, Dual 01/23/18 1051 <Electronically signed by Clair Crawford > Date Clair Yvette 01/25/18 1037<Electronically signed by Jamie Christina MD> Thomas Signature: Date (if applicable) Jamie Christina MD CC: PROTIME W/INR Collected: 01/23/2018 Status: F Source: [place] FINGER[place] 8:47 AM [facility] REPOSITORY TYPE CODE TESTS RESULT OUT OF REFERENCE UNITS RANGE LAB L9200.1001 11.9-14.4 SEC High PROTIME ISTAT 32.8 Result Comment: Reference Range 11.9 - 14.4 LAB L9200.2000 Normal INR ISTAT 2.90 Result Comment: Critical Value > 3.5 Performed By: #### L9200.0000 #### [facility] Point of Care [address] [place] [address]. [place] [id number] PROTIME W/INR Collected: 01/01/2018 Status: F Source: [place] FINGER[place] 8:47 AM [facility] REPOSITORY TYPE CODE TESTS RESULT OUT OF REFERENCE UNITS RANGE LAB L9200.1001 11.9-14.4 SEC High PROTIME ISTAT 24.2 Result Comment: Reference Range 11.9 - 14.4 LAB L9200.2000 Normal INR ISTAT 2.10 Result Comment: Critical Value > 3.5 Performed By: #### L9200.0000 #### [facility] Point of Care [address] [place] [address]. [place] [address] PROTIME W/INR Collected: 12/05/2017 Status: F Source: [place] FINGER[place] 9:32 AM [facility] REPOSITORY TYPE CODE TESTS RESULT OUT OF REFERENCE UNITS RANGE LAB L9200.1001 11.9-14.4 SEC High PROTIME ISTAT 34.0 Result Comment: Reference Range 11.9 - 14.4 LAB L9200.2000 Normal INR ISTAT 3.00 Result Comment: Critical Value > 3.5 Performed By: #### L9200.0000 #### [facility] Point of Care [address] [place] [address] PROTIME W/INR Collected: 11/20/2017 Status: F Source: [place] FINGER[place] 8:40 AM [facility] REPOSITORY TYPE CODE TESTS RESULT OUT OF REFERENCE UNITS RANGE LAB L9200.1001 11.9-14.4 SEC High PROTIME ISTAT 31.3 Result Comment: Reference Range 11.9 - 14.4 LAB L9200.2000 Normal INR ISTAT 2.70 Result Comment: Critical Value > 3.5 Performed By: #### L9200.0000 #### [facility] Point of Care [address] [place] [address] PROTIME W/INR Collected: 11/07/2017 Status: F Source: [place] FINGER[place] 8:20 AM [facility] REPOSITORY TYPE CODE TESTS RESULT OUT OF REFERENCE UNITS RANGE LAB L9200.1001 11.9-14.4 SEC High PROTIME ISTAT 40.6 Result Comment: Reference Range 11.9 - 14.4 LAB L9200.2000 High alert INR ISTAT 3.60 Result Comment: Critical Value > 3.5 Performed By: #### L9200.0000 #### [facility] Point of Care [address] [place] [address] DOWNTIME REPORT Observed: 11/02/2017 Status: F Source: [place] 11:49 AM [facility] Medical Records Department [address] [place] [address] Downtime Report MR#: [id number] Acct: [id number] Name: BETTINA CHAMBERS Rep #: [id number] : 1945 72 From: Jaiden Ward PCP: Coleman Whitaker MD Status: REG RCR This patient was seen during an EMR downtime October 16, 2017 - October 23, 2017. This patient may have a combination of paper and electronic documentation or all paper documentation. All documentation is viewable within the e-chart portion of [employer] for each patient visit. PROTIME W/INR Collected: 10/23/2017 Status: F Source: [place] FINGER[place] 10:34 AM [facility] REPOSITORY TYPE CODE TESTS RESULT OUT OF REFERENCE UNITS RANGE LAB L9200.1001 11.9-14.4 SEC High PROTIME ISTAT 40.9 Result Comment: Reference Range 11.9 - 14.4 LAB L9200.2000 High alert INR ISTAT 3.60 Result Comment: Critical Value > 3.5 Performed By: #### L9200.0000 #### [facility] [place] [address] US DVT LOWER LT Observed: 09/29/2017 Status: F Source: [place] 1:16 PM CLINIC OTHER CAMPUS REPOSITORY * [...] IMPRESSION: No evidence of deep venous thrombosis Machine Accountant: PERI Transcribe Date/Time: Sep 29 2017 1:19P Dictated by : JUAN CALVILLO DO This examination was interpreted and the report reviewed and electronically signed by: JUAN CALVILLO DO on Sep 29 2017 1:19PM EST [id number] BASIC METABOLIC Collected: 09/26/2017 Status: F Source: [place] PROFILE (BMP) 8:20 AM [facility] REPOSITORY Order Comment: Comments: Pt on diuretics, [...] GAP 5 Performed By: #### L500.2500 #### [facility] [address] [facility] [place], [address] OPERATIVE REPORT Observed: 09/19/2017 Status: F Source: [place] 3:02 PM [facility] REPOSITORY [facility] Medical Records Department [address] [place] [address] Operative Report 09/19/17 1449 MR#: [id number] Acct: [id number] Name: BETTINA CHAMBERS Rep #: [id number] : 1945 71 From: Helio [place] MD PCP: Coleman Whitaker MD Status: REG [facility] Y Location: [place] [address] Problem List (1) Vocal cord paralysis, unilateral [...] DISCHARGE INSTRUCTION Observed: 09/19/2017 Status: F Source: [place] 2:46 PM [facility] REPOSITORY [facility] Medical Records Department [address] [place] [address] Instructions for Home/Discharge Instructions 09/19/17 1446 MR#: [id number] Acct: [id number] Name: CHAMBERSTARIQKade Wong Rep #: [id number] : 1945 71 From: Helio [place] MD PCP: Coleman Whitaker MD Status: REG [facility] You will use the following diet at [...] Status: F Source: [place] F[place] 12:01 PM [facility] REPOSITORY TYPE CODE TESTS RESULT OUT OF RANGE REFERENCE UNITS LAB L9200.1001 11.9-14.4 SEC Normal PROTIME ISTAT 13.7 Result Comment: Reference Range 11.9 - 14.4 LAB L9200.2000 Normal INR ISTAT 1.20 Result Comment: Critical Value > 3.5 Performed By: #### L9200.0000 #### [facility] Point of Care [address] [place], [place] [address] BASIC METABOLIC Collected: 08/18/2017 Status: F Source: [place] PROFILE (BMP) 11:50 AM [facility] REPOSITORY TYPE CODE TESTS RESULT OUT OF [...] GAP 8 Performed By: #### L500.2500 #### [facility] [address] [place], [address] LIVER PROFILE Collected: 08/18/2017 Status: F Source: [place] 11:48 AM [facility] REPOSITORY Order Comment: Order Date: 03/03/17 Order Info: 0788-1 - *Hepatic Function Panel Order Info: [id number] - *Lipid Profile CC PCP Comments: 12 [...] BILI 0.24 Performed By: #### L500.3400 #### [facility] [address] [place], [address] LIPID PROFILE Collected: 08/18/2017 Status: F Source: [place] 11:48 AM [facility] REPOSITORY Order Comment: Order Date: 03/03/17 Order Info: 0788-1 - *Hepatic Function Panel Order Info: [id number] - *Lipid Profile CC PCP Comments: 12 [...] VLDL 20 Performed By: #### L500.4100 #### [facility] [address] [place], [address] PROTIME W/INR Collected: 08/09/2017 Status: F Source: [place] FINGERSTICK 9:13 AM [facility] REPOSITORY TYPE CODE TESTS RESULT OUT OF REFERENCE UNITS RANGE LAB L9200.1001 11.9-14.4 SEC High PROTIME ISTAT 29.6 Result Comment: Reference Range 11.9 - 14.4 LAB L9200.2000 Normal INR ISTAT 2.60 Result Comment: Critical Value > 3.5 Performed By: #### L9200.0000 #### [facility] Point of Care [address] [place] [address] PACEMAKER CHECK Observed: 08/04/2017 Status: F Source: [place] 5:00 PM [facility] REPOSITORY [facility] [address] [place] [address] Pacemaker Check Date of Service: 07/19/17 1112 MR#: [id number] Acct: [id number] Name: BETTINA CHAMBERS Rep #: [id number] : 1945 From: Clair Raber Age/Sex: 71/F Location: [facility] Status: Signed Comments Summary Comments: Dual Chamber Pacemaker Evaluation: Interrogation shows 17 VHR episodes since last check 04/20/17. Longest episode on 07/06/17 for 26 secs. Stored e-grams show VHR @ 183 to 187 bpm. Left pectoral pocket/incision w/o s/s of infection or erosion. Pt offers no cardiac complaints. Presenting rhythm shows Ventricular paced with intermittent intrinsic @ 75 bpm, underlying atrial fib. DINING ROOM ATTENDANT CAFETERIA=22.6%. Battery longevity approx 5.5 yrs. Lead impedance, sensing and pace/sense threshold remain stable. Increased Ventricular amplitude for 2x safety margin. Counters cleared. Next f/u appt scheduled for in 6 mos. Device Device Date Interviewed: 07/19/17 Follow-up Location: in office Interview Reason: routine follow up Ground Layer: Medtronic Name: Versa Model: VEDR01 Serial #: [id number] Implant Date: 12/29/11 Year(s): 5 Patient Characteristics Atrial Indication: sick sinus syndrome Ejection fraction %: 35 to 39 By: Echo Underlying rhythm: Atrial fibrillation Pacemaker Dependent: No Device Characteristics Device: Dual Chamber Type: Pacemaker Remote Follow-Up: No Device Physical Exam Yes Incision well healed Leads Lead #1 Ground Layer Lead 1: Medtronic Model Lead 1: 6940 Serial# Lead 1: [id number] Date Implanted Lead 1: 03/12/01 Position Lead 1: RA Lead #2 Ground Layer Lead 2: Medtronic Model Lead 2: 6944 Serial# Lead 2: [id number] Date Implanted Lead 2: 03/12/01 Position Lead [...] CC: CNCO Observed: 07/20/2017 Status: COMPLETED Source: [place] 10:38 AM [facility] OTHER CAMPUS REPOSITORY [facility] ID: [id number] Author: Mammography Coordinator Service: (none) Author Type: Physician Type: Letter Filed: 07/24/2017 11:31 PM Note Text: July 20, 2017 PID: [id number] Bettina Chambers [address] [place] [address] [place] [address] Dear Ms. Chambers, We are pleased to [...] report will be kept on file at [facility] as part of your permanent medical record and are available for your continuing care. Thank you for allowing us to help in meeting your health care needs. Sincerely, Dr. Calvillo Interpreting Radiologist [facility]. (Normal over 40) [facility] SCREENING Observed: 07/18/2017 Status: F Source: [place] 9:26 AM CLINIC OTHER CAMPUS REPOSITORY * * *Final Report* * * DATE OF EXAM: Jul 18 2017 9:26AM ASIF 0581 - [facility] SCREENING / PROCEDURE REASON: SCREENING * * * * Physician Interpretation * * * * #[id number] - [facility] SCREENING BILATERAL DIGITAL SCREENING MAMMOGRAM WITH CAD: 07/18/2017 HISTORY: Screening /Screening Mammogram - patient reports NO symptoms. RESULT: TECHNIQUE: The study was acquired using full field digital technology and interpreted from soft copy. Current study was also evaluated with a Computer Aided Detection (CAD). Comparison is made to exam dated: 08/12/2014 mammogram - [facility]. There are scattered fibroglandular elements in both breasts. There are benign calcifications in both breasts. No significant masses, calcifications, or other findings are seen in either breast. There has been no significant interval change. IMPRESSION: BENIGN FINDING There is no mammographic evidence of malignancy. A 1 year screening mammogram is recommended. Juan scherer/margie:07/20/2017 10:38:10 Hydro Plant Operator: Vicky ROSENBAUM(Grayson)(Marvin), [facility] letter sent: Normal over 40 Mammogram BI-RADS: 2 Benign finding Machine Accountant: Margie Transcribe Date/Time: Jul 18 2017 9:16A Dictated by : JUAN CALVILLO DO This examination was interpreted and the report reviewed and electronically signed by: JUAN CALVILLO DO on Jul 20 2017 10:38AM EST [id number] CARDIOLOGY VISIT Observed: 06/30/2017 Status: F Source: [place] REPORT 10:53 AM [facility] REPOSITORY [facility] 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 Atherosclerosis of [place] coronary artery of [place] heart without angina pectoris I25.10 ANJU Christiansen [...] prior to saving. Follow Up 6 Months (APPLICATION ASSISTANT) Coding Level of Care Code Off vis,est,level 4 Diagnoses Atherosclerosis of [place] coronary artery of [place] heart without angina pectoris I25.10 [place] vs. transplanted heart: [place] heart Chronic atrial fibrillation I48.2 Hypertrophic cardiomyopathy I42.2 Pure hypercholesterolemia E78.00; E78.0 Hyperlipidemia type: pure hypercholesterolemia Pacemaker Z95.0 Coding Level of Care Code Off vis,est,level 4 Diagnoses Atherosclerosis of [place] coronary artery of [place] heart without angina pectoris I25.10 [place] vs. transplanted heart: [place] heart Chronic atrial fibrillation I48.2 Hypertrophic cardiomyopathy I42.2 Pure hypercholesterolemia E78.00; E78.0 Hyperlipidemia type: pure hypercholesterolemia Pacemaker Z95.0 06/30/17 1004 <Electronically signed by Joann RENE> Date Joann RENE 06/30/17 1053<Electronically signed by Jamie Christina MD> Cosigner Signature: Date (if applicable) Jamie Christina MD CC: Coleman Whitaker MD OFFICE VISIT REPORT Observed: 06/12/2017 Status: F Source: [place] 7:31 AM [facility] [place] [address] OFFICE VISIT Date of Service: MR#: [id number] Acct: [id number] Patient: BETTINA CHAMBERS Rep #: [id number] : 1945 Provider: Clair Crawford Age/Sex: 71/F Location: [facility] Status: Signed Comments Summary Comments: Dual Chamber [...] atrial fib. Battery longevity approx 6 yrs. 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 Lead impedance, sensing and pace/sense threshold remain stable. Ventricular sensing is low but consistent with prior measurements. No parameter changes made. Counters cleared. Next f/u appt scheduled for in 3 mos. Device Device Date Interviewed: 04/20/17 Follow-up Location: in office Interview Reason: routine follow up Ground Layer: Medtronic Name: Versa Model: VEDR01 Serial #: [id number] Implant Date: 12/29/11 Year(s): 5 Patient Characteristics Atrial Indication: sick sinus syndrome Ejection fraction %: 35 to 39 By: Echo Underlying rhythm: Atrial fibrillation Pacemaker Dependent: No Device Characteristics Device: Dual Chamber Type: Pacemaker Remote Follow-Up: No Device Physical Exam Yes Incision well healed Leads Lead #1 Ground Layer Lead 1: Medtronic Model Lead 1: 6940 Serial# Lead 1: [id number] Date Implanted Lead 1: 03/12/01 Position Lead 1: RA Lead #2 Ground Layer Lead 2: Medtronic Model Lead 2: 6944 Serial# Lead 2: [id number] Date Implanted Lead 2: 03/12/01 Position Lead [...] REACTION SEVERITY SOURCE Drug amoxicillin/F0060 Unknown Unknown [place] [facility]640715095( [facility] risedronate Unknown Unknown [place] [facility] Allergy/605141671( sodium[facility]T106904563 [facility] Miscellaneous metoprolol Abdominal SV [place] 8 Allergy/113912362( cramping, poor Community SNOMED CT) rate control Hospital Repository DRUG/582459096(SNO RISEDRONATE RASH [facility] [address]) Clinic Other [place] Repository DRUG AMOXICILLIN RASH [place] 2 INGREDI/383536425( Clinic Other SNOMED CT) [place] Repository DRUG PREDNISOLONE SHORTNESS OF Agency 2 INGREDI/405007493( Clinic Other SNOMED CT) [place] Repository ENCOUNTERS ENCOUNTERS ADMIT/DISCHARGE ACCOUNT ADMITTING ENCOUNTER LOCATION SOURCE NUMBER CLASS 05/31/2018 [id number] Ambulatory [facility] ing:LAB Repository 04/30/2018/04/30/20 [id number] Ambulatory [address] ing:LAB Repository 04/24/2018/04/24/20 [id number] Ambulatory BMSBuilding:B [place] 18 [facility] Repository 04/10/2018/04/30/20 [id number] Ambulatory [address] Main [place] Repository 04/10/2018/04/10/20 [id number] Ambulatory [address] Other [place] Repository 02/28/2018/02/29/20 [id number] Ambulatory [address] ing:LAB Repository 01/30/2018/01/31/20 [id number] Ambulatory BMSBuilding:B [place] 18 [facility] Repository 01/23/2018/01/24/20 [id number] Ambulatory BMSBuilding:B [place] 18 [facility] Repository 01/23/2018/01/24/20 [id number] Ambulatory [place] ing:LAB Repository 01/01/2018/01/02/20 [id number] Ambulatory [place] ing:LAB Repository 12/05/2017/12/06/19 [id number] Ambulatory [address] ing:LAB Repository 11/07/2017/11/08/19 [id number] Ambulatory [place] ing:LAB Repository 09/29/2017 [id number] Ambulatory [facility] Repository 09/26/2017 [id number] Ambulatory [place] [facility] ing:MTLAB Repository 09/19/2017/09/20/19 [id number] Ambulatory [place] 18 [facility] ing:SDC Repository 08/18/2017 [id number] Ambulatory [place] [facility] ing:MTLAB Repository 08/09/2017/08/10/19 [id number] Ambulatory [place] 18 [facility] ing:LAB Repository 07/19/2017/07/20/19 [id number] Ambulatory BMSBuilding:B [place] [facility] Repository 07/18/2017 [id number] Ambulatory [facility] Repository 06/30/2017/06/30/19 [id number] Ambulatory BMSBuilding:B [place] 18 [facility] Repository 04/20/2017 [id number] Ambulatory BMSBuilding:B [place] [facility] Repository PAYERS PAYERS ENCOUNTER GUARANTOR PAYER SUBSCRIBER SOURCE 05/31/2018 BETTINA Wong Primary BETTINA M [place] [id number] Insurance:MEDICARE CAMPBELLDOB: [facility] [id number] Number: Repository [address]Xur: 330 [id number] [phone] () Date:2017-06-16 05/31/2018 Secondary EDYTHE M [place] Insurance:AARPPolicy CAMPBELLDOB: [facility] Number: [id number] Hospital [id number] Repository Date:4769-09-34[address]QHDJYVC, [place] [address]XM: 05/31/2018 Tertiary NOT GIVENUNK [place] Insurance:SELF PAY [facility] Number: Effective Repository Date:2018-05-14 04/30/2018 BETTINA Wong Primary TARIQE M [place] [id number] Insurance:MEDICARE CAMPBELLDOB: [facility] PART A [facility] [id number] Number: Repository [address]Vyk: 330 [id number] [phone] (HP) Date:2017-06-16 04/30/2018 Secondary BETTINA Wong [place] Insurance:AARPPolicy CAMPBELLDOB: Community Number: [id number] Hospital [id number] Repository Date:1873-25-98JB [facility] 457048QUXUGYI, [place] [address]AK: 04/30/2018 Tertiary NOT GIVENUNK [place] Insurance:SELF PAY [facility] Number: Effective Repository Date:2018-03-15 04/24/2018 BETTINA M Primary EDLATAE M [place] [id number] Insurance:MEDICARE CAMPBELLDOB: Community [place] A [facility] [id number] Number: Repository [address]Xlk: 330 [id number] [phone] () Date:2018-01-23 04/24/2018 Secondary BETTINA M [place] Insurance:AARPPolicy CAMPBELLDOB: Community Number: [id number] Hospital [id number] Repository Date:3484-02-64SH [facility] 767196TDXJURO, [place] [address]EX: 04/24/2018 Tertiary NOT GIVENUNK [place] Insurance:SELF PAY [facility] Effective Repository Date:2018-04-24 02/28/2018 BETTINA Wong Primary BETTINA M [place] [id number] Insurance:MEDICARE CAMPBELLDOB: Community [place] A [facility] [id number], [place] Number: Repository [id number]: 330 [id number] [phone] (HP) Date:2017-06-16 02/28/2018 Secondary BETTINA M [place] Insurance:AARPPolicy CAMPBELLDOB: Community Number: [id number] Hospital [id number] Repository Date:7287-45-37QN [facility] 085030OFKXJYP, [place] [address]OL: 02/28/2018 Tertiary NOT GIVENUNK [place] Insurance:SELF PAY [facility] Number: Effective Repository Date:2018-02-14 01/30/2018 EDYTHE M Primary EDYTHE M [place] [id number] Insurance:MEDICARE CAMPBELLDOB: Community [place] A [facility] [id number] Number: Repository [address]Sth: 330 [id number] [phone] () Date:2017-06-30 01/30/2018 Secondary BETTINA Wong [place] Insurance:AARPPolicy CAMPBELLDOB: Community Number: [id number] Hospital [id number] Repository Date:3111-54-77[address]PKMAIVW, [place] [address]HA: 01/30/2018 Tertiary NOT GIVENUNK [place] Insurance:SELF PAY [facility] Number: Effective Repository Date:2018-01-30 01/23/2018 BETTINA Wong Primary BETTINA Wong [place] [id number] Insurance:MEDICARE CAMPBELLDOB: Community [place] A [facility] [id number], [place] Number: Repository [address]Uti: 330 [id number] [phone] () Date:2017-07-19 01/23/2018 Secondary BETTINA Wong [place] Insurance:AARPPolicy CAMPBELLDOB: Community Number: [id number] Hospital [id number] Repository Date:2989-93-92[address]YZ[address], [place] [address]WR: 01/23/2018 Tertiary NOT GIVENUNK [place] Insurance:SELF PAY [facility] Number: Effective Repository Date:2018-01-23 01/23/2018 BETTINA Wong Primary BETTINA Wong [place] [id number] Insurance:MEDICARE CAMPBELLDOB: Community [place] A [facility] [id number], [place] Number: Repository [address]Lit: 330 [id number] [phone] () Date:2017-06-16 01/23/2018 Secondary EDWILLIE M [place] Insurance:AARPPolicy CAMPBELLDOB: Community Number: [id number] Hospital [id number] Repository Date:2964-18-28KQ [address]GOEXHM, [place] [address]XN: 01/23/2018 Tertiary NOT GIVENUNK [place] Insurance:SELF PAY [facility] Number: Effective Repository Date:2018-01-16 01/01/2018 BETTINA Wong Primary BETTINA Wong [place] [id number] Insurance:MEDICARE CAMPBELLDOB: Community [place] A [facility] [id number], [place] Number: Repository [address]Kox: 330 [id number] [phone] (HP) Date:2017-06-16 01/01/2018 Secondary BETTINA Wong [place] Insurance:AARPPolicy CAMPBELLDOB: Community Number: [id number] Hospital [id number] Repository Date:1418-20-07RM [facility] 909180JWFCYVA, [place] [address]FU: 01/01/2018 Tertiary NOT GIVENUNK [place] Insurance:SELF PAY [facility] Number: Effective Repository Date:2017-12-14 12/05/2017 BETTINA Wong Primary BETTINA Wong [place] [id number] Insurance:MEDICARE CAMPBELLDOB: Community [place] A [facility] [id number], [place] Number: Repository [address]Yoq: 330 [id number] [phone] (HP) Date:2017-06-16 12/05/2017 Secondary BETTINA Wong [place] Insurance:AARPPolicy CAMPBELLDOB: Community Number: [id number] Hospital [id number] Repository Date:6992-55-36AU [facility] [address]29066PHXTK[place], [place] [address]KJ: 12/05/2017 Tertiary NOT GIVENUNK [place] Insurance:SELF PAY [facility] Number: Effective Repository Date:2017-11-10 11/07/2017 BETTINA M Primary BETTINA Wong [place] [id number] Insurance:MEDICARE CAMPBELLDOB: Community [place] A [facility] [id number], [place] Number: Repository [address]Wtd: [phone]) [id number] [phone] (HP) Date:2017-06-16 11/07/2017 Secondary EDYTHE M [place] Insurance:AARPPolicy CAMPBELLDOB: Community Number: [id number] Hospital [id number] Repository Date:4482-41-81[address]EPITKDK, [place] [address]HT: 11/07/2017 Tertiary NOT GIVENUNK [place] Insurance:SELF PAY [facility]: Effective Repository Date:2017-08-14 09/26/2017 BETTINA Wong Primary BETTINA Wong [place] [id number] Insurance:MEDICARE CAMPBELLDOB: Community [place] A olic [id number], [place] Number: Repository [address]Psn: [phone]) [id number] [phone] () Date:2017-09-26 09/26/2017 Secondary BETTINA Wong [place] Insurance:AARPPolicy CAMPBELLDOB: Community Number: [id number] Hospital [id number] Repository Date:9597-65-06[address]CSYYNOZ, [place] [address]AE: 09/26/2017 Tertiary NOT GIVENUNK [place] Insurance:SELF PAY [facility] Number: Effective Repository Date:2017-09-26 09/19/2017 BETTINA Wong Primary BETTINA Akhtar [id number] Insurance:MEDICARE CAMPBELLDOB: Community [place] A [facility] [id number], [place] Number: Repository [address]Dsy: [phone]) [id number] [phone] () Date:2017-08-24 09/19/2017 Secondary BETTINA Wong [place] Insurance:AARPPolicy CAMPBELLDOB: Community Number: [id number] Hospital [id number] Repository Date:3167-30-13LI [address]LMUKJMH, [place] [address]IY: 09/19/2017 Tertiary NOT GIVENUNK [place] Insurance:SELF PAY [facility] Number: Effective Repository Date:2017-08-24 08/18/2017 BETTINA Wong Primary BETTINA Wong [place] [id number] Insurance:MEDICARE CAMPBELLDOB: Community [place] A BPolicy [id number], [place] Number: Repository [address]Rlx: 330 [id number] [phone] (HP) Date:2017-08-18 08/18/2017 Secondary EDWILLIE Wong [place] Insurance:AARPPolicy CAMPBELLDOB: Community Number: [id number] Hospital [id number] Repository Date:1644-18-21[address]FPCNYIL, [place] [address]FX: 08/18/2017 Tertiary NOT GIVENUNK [place] Insurance:SELF PAY [facility] Number: Effective Repository Date:2017-08-18 08/09/2017 BETTINA M Primary BETTINA M [place] [id number] Insurance:MEDICARE CAMPBELLDOB: Community [place] A [address], [place] Number: Repository [address]Uvb: 330 [id number] [phone] (HP) Date:2017-06-16 08/09/2017 Secondary EDLATAE M [place] Insurance:AARPPolicy CAMPBELLDOB: Community Number: [id number] Hospital [id number] Repository Date:9148-36-21HT [address]MKOHPZH, [place] [address]YG: 08/09/2017 Tertiary NOT GIVENUNK [place] Insurance:SELF PAY [facility] Number: Effective Repository Date:2017-06-16 07/19/2017 BETTINA M Primary EDLATAE M [place] [id number] Insurance:MEDICARE CAMPBELLDOB: Community [place] A [address], [place] Number: Repository [address]Dfa: 330 [id number] [phone] (HP) Date:2017-04-20 07/19/2017 Secondary EDLATAE M [place] Insurance:AARPPolicy CAMPBELLDOB: Community Number: [id number] Hospital [id number] Repository Date:9724-52-80AK [address]RRKACCL, [place] [address]SJ: 07/19/2017 Tertiary NOT GIVENUNK [place] Insurance:SELF PAY [facility] Number: Effective Repository Date:2017-04-20 06/30/2017 BETTINA Wong Primary BETTINA Wong [place] [id number] Insurance:MEDICARE CAMPBELLDOB: Community [place] A [facility] [id number], [place] Number: Repository [address]Lhp: 330 [id number] [phone] (HP) Date:2017-04-19 06/30/2017 Secondary BETTINA Wong [place] Insurance:AARPPolicy CAMPBELLDOB: Community Number: [id number] Hospital [id number] Repository Date:5658-81-97OQ [address]CPMKDVC, [place] [address]DH: 06/30/2017 Tertiary NOT GIVENUNK [place] Insurance:SELF PAY [facility] Number: Effective Repository Date:2017-04-19 04/20/2017 BETTINA M Primary BETTINA Wong [place] [id number] Insurance:MEDICARE CAMPBELLDOB: Community [place] PART A [address] Number: Repository [address]Zui: 330 [id number] [phone] (HP) Date:2017-04-20 04/20/2017 Secondary BETTINA Wong [place] Insurance:AARPPolicy CAMPBELLDOB: Community Number: [id number] Hospital [id number] Repository Date:7021-80-99CM [address]WXSIS, [place] [address]CB: 04/20/2017 Tertiary NOT GIVENUNK [place] Insurance:SELF PAY [facility] Number: Effective Repository Date:2017-04-20
== END 2018-05-31 09:00 | disposition home or self-care (01) ==
LOC: LAB 08:08
PROVIDERS: Referring Provider Internal Medicine Cardiovascular Disease; Visit Provider Internal Medicine Cardiovascular Disease
DX: I48.2 Chronic atrial fibrillation (principal); Z79.01 Long term (current) use of anticoagulants
CPT/HCPCS: 36416; 85610

== ENCOUNTER 2018-07-03 08:58 | Outpatient (RCR) | payer MEDICARE, OTHER, SELFPAY ==
[2018-01-30 10:28] VITALS: BMI 26.6
[2018-06-18 08:47] LABS: Prothrombin Time Fingerstick 39.7 SEC (11.9-14.4)
[2018-07-03 09:11] LABS: Prothrombin Time Fingerstick 28.7 SEC (11.9-14.4)
== END 2018-07-12 14:33 | disposition home or self-care (01) ==
LOC: MTLAB 08:58
PROVIDERS: Referring Provider Internal Medicine Cardiovascular Disease; Visit Provider Internal Medicine Cardiovascular Disease
DX: I48.2 Chronic atrial fibrillation (principal); Z79.01 Long term (current) use of anticoagulants
CPT/HCPCS: 36416; 85610

== ENCOUNTER 2018-08-06 09:03 | Outpatient (RCR) | payer MEDICARE, OTHER, SELFPAY ==
[2018-01-30 10:28] VITALS: BMI 26.6
[2018-07-18 08:41] LABS: Prothrombin Time Fingerstick 23.6 SEC (11.9-14.4)
[2018-08-06 09:16] LABS: Prothrombin Time Fingerstick 24.9 SEC (11.9-14.4)
== END 2018-08-06 10:00 | disposition home or self-care (01) ==
LOC: MTLAB 09:03
PROVIDERS: Referring Provider Internal Medicine Cardiovascular Disease; Visit Provider Internal Medicine Cardiovascular Disease
DX: I48.2 Chronic atrial fibrillation (principal); Z79.01 Long term (current) use of anticoagulants
CPT/HCPCS: 36416; 85610

== ENCOUNTER 2018-09-06 08:41 | Outpatient (RCR) | payer MEDICARE, OTHER, SELFPAY ==
[2018-07-24 09:34] VITALS: BMI 27.9
[2018-09-06 08:56] LABS: Prothrombin Time Fingerstick 23.4 SEC (11.9-14.4)
== END 2018-09-11 16:00 | disposition home or self-care (01) ==
LOC: MTLAB 08:41
PROVIDERS: PCP Pathology Anatomic Pathology & Clinical Pathology; Referring Provider Internal Medicine Cardiovascular Disease; Visit Provider Internal Medicine Cardiovascular Disease
DX: I48.2 Chronic atrial fibrillation (principal); Z79.01 Long term (current) use of anticoagulants
CPT/HCPCS: 36416; 85610

== ENCOUNTER → 2018-09-19 15:05 | Outpatient (CLI) | payer MEDICARE, OTHER, SELFPAY ==
[2018-07-24 09:34] VITALS: BMI 27.9
[2018-09-19 18:44] LABS: T4 Total, Thyroxin 10.5 ug/dL (4.8-13.9); Thyroid Stim Hormone (TSH) 1.58 uIU/mL (0.358-3.74)
== END ==
PROVIDERS: Family Provider Family Medicine; PCP Family Medicine; Referring Provider Family Medicine; Visit Provider Family Medicine
DX: E03.9 Hypothyroidism, unspecified (principal)
CPT/HCPCS: 36415; 84436; 84443

== ENCOUNTER → 2018-10-04 09:45 | Outpatient (CLI) | payer MEDICARE, OTHER, SELFPAY ==
[2018-07-24 09:34] VITALS: BMI 27.9
--- NOTE | 2018-10-04 09:59 | BD_ITS ---
STUDY: DUAL ENERGY X-RAY ABSORPTIOMETRY / DXA REASON FOR EXAM: Female, 73 years old. Early menopause. Loss of height. TECHNIQUE: Bone Mineral Density (BMD) measurements of lumbar spine and bilateral hips were obtained. COMPARISON: None. FINDINGS: Lumbar Spine (L1-L4): g/cm2 (0.944) / T-score (-2.0) / Z-score (-0.3) Findings are suggestive of osteopenia with a moderate fracture risk. Increased thoracic kyphosis. Left Femur Total: g/cm2 (0.926) / T-score (-0.7) / Z-score (0.9) Left Femoral Neck: g/cm2 (0.858) / T-score (-1.3) / Z-score (0.5) Right Femur Total: g/cm2 (0.832) / T-score (-1.4) / Z-score (0.2) Right Femoral Neck: g/cm2 (0.868) / T-score (-1.2) / Z-score (0.6) BD/Dexa Bone Density Study IMPRESSION: The patient is considered osteopenic as outlined below according to World Reyes Organization (WHO) criteria with a moderate fracture risk. Reference Information: The T-score is the number of standard deviations above or below the standard which is normal for young adults at their peak bone mineral density. The World Health Organization (WHO) interprets the T-scores as follows: Above -1 Normal bone density Between -1 and -2.5 Osteopenia Equal to / or below -2.5 Osteoporosis As a practical clinical guideline, osteopenia may be graded as follows: Mild -1 through -1.5 Moderate -1.6 through -2.0 Severe -2.1 through -2.4 The Z-score is the number of standard deviations above or below age-matched controls. A Z-score of less than -1.5 would be considered abnormal. References: 1. NIH Osteoporosis and Related Bone Diseases http://www.osteo.org 2. International Society for Clinical Densitometry http://www.iscd.org 3. National Osteoporosis Foundation http://www.nof.org Electronically Signed: Renny Obrien, at 12:35 EDT , Service support ,
== END ==
PROVIDERS: Family Provider Family Medicine; PCP Family Medicine; Referring Provider Family Medicine; Visit Provider Family Medicine
DX: M85.80 Other specified disorders of bone density and structure, unspecified site (principal); Z78.0 Asymptomatic menopausal state
CPT/HCPCS: 77080

== ENCOUNTER 2018-11-02 08:33 | Outpatient (RCR) | payer MEDICARE, OTHER, SELFPAY ==
[2018-07-24 09:34] VITALS: BMI 27.9
[2018-11-02 08:45] LABS: Prothrombin Time Fingerstick 23.1 SEC (11.9-14.4)
== END 2018-11-02 09:00 | disposition home or self-care (01) ==
LOC: MTLAB 08:33
PROVIDERS: Family Provider Family Medicine; PCP Pathology Anatomic Pathology & Clinical Pathology; Referring Provider Internal Medicine Cardiovascular Disease; Visit Provider Internal Medicine Cardiovascular Disease
DX: I48.2 Chronic atrial fibrillation (principal); Z79.01 Long term (current) use of anticoagulants
CPT/HCPCS: 36416; 85610

== ENCOUNTER 2018-12-10 08:43 | Outpatient (RCR) | payer MEDICARE, OTHER, SELFPAY ==
[2018-07-24 09:34] VITALS: BMI 27.9
[2018-11-28 08:52] VITALS: BMI 29.5
[2018-12-10 10:55] LABS: International Normalized Ratio 2.3
[2018-12-10 11:15] LABS: Anion Gap 6 (5-15); BUN 25 mg/dL (7-18); BUN/Creat Ratio 22.3 RATIO (10-20); Calcium,Total 9.3 mg/dL (8.5-10.1); Chloride 103 mmol/L (98-107); Creatinine, Serum 1.12 mg/dL (0.55-1.02); EST Glomerular Filtration Rate 51 mL/min (>60); Est Glom Filt Rate - Afr Amer 62 mL/min (>60); Glucose 132 mg/dL (74-106); Potassium 3.7 mmol/L (3.5-5.1); Sodium Level 139 mmol/L (136-145)
== END 2018-12-12 16:00 | disposition home or self-care (01) ==
LOC: MTLAB 08:43
PROVIDERS: Family Provider Family Medicine; PCP Family Medicine; Referring Provider Internal Medicine Cardiovascular Disease; Visit Provider Internal Medicine Cardiovascular Disease
DX: I48.2 Chronic atrial fibrillation (principal); Z79.01 Long term (current) use of anticoagulants
CPT/HCPCS: 36415; 80048; 85610

== ENCOUNTER → 2019-01-01 09:52 | Outpatient (CLI) | payer MEDICARE, OTHER, SELFPAY ==
[2018-11-28 08:52] VITALS: BMI 29.5
--- NOTE | 2019-01-01 09:54 | ECHOD_ITS ---
Reason For Study: DYSPNEA Procedure This was a 2D Doppler, Color Flow transthoracic echocardiogram. Exam performed in department. Left Ventricle Normal LV size. Moderate eccentric left ventricular hypertrophy. The estimated ejection fraction is 35 %. Unable to assess diastolic dysfunction due to arrhythmia. There is moderate global hypokinesis of the left ventricle. Apical wall motion abnormality may reflect pacemaker activation. [place] : Akinetic. Right Ventricle Normal RV size. ICD or pacer leads identified within the right ventricle. Mild global right ventricular systolic dysfunction. Atria The left atrium is severely enlarged. The right atrium is moderately enlarged. Mitral Valve There is mild mitral annular calcification. Mild (1+) eccentric mitral valve insufficiency. Tricuspid Valve Normal tricuspid valve. Mild to moderate (1-2+) tricuspid valve insufficiency. Pulmonary artery systolic pressure is 43 mmHg. Aortic Valve Trisinus/trileaflet aortic valve. Pulmonic Valve Normal pulmonic valve. Mild (1+) pulmonic valve insufficiency. Great Vessels Normal aortic root. The pulmonary artery is normal size. The inferior vena cava is dilated. Pericardium/Pleural No pericardial effusion. MMode/2D Measurements & Calculations LVIDd: 5.6 cm IVSd: 1.0 cm Ao root diam: 3.9 cm LVIDs: 5.1 cm LVPWd: 1.0 cm RVDd: 3.9 cm FS: 7.6 % LAV(MOD-bp): 183.2 ml LA A4 area: 44.0 cm2 LA dimension(2D): 5.9 cm LAV(MOD-bp) Indexed: 100.8 ml/m2 LAV(MOD-sp2): 170.2 ml LAV(MOD-sp4): 198.9 ml RA A4 area: 34.3 cm2 Time Measurements MV dec time: 0.12 sec Doppler Measurements & Calculations MV E max sunil: 79.7 cm/sec Ao V2 max: 80.6 cm/sec AI max sunil: 333.0 cm/sec MV A max sunil: 34.0 cm/sec Ao max P.6 mmHg AI max P.4 mmHg MV E/A: 2.3 AI dec slope: 147.1 cm/sec2 AI P1/2t: 662.9 msec LV V1 max: 84.6 cm/sec PA V2 max: 95.1 cm/sec PI end-d sunil: 163.8 cm/sec LV V1 max P.9 mmHg TR max sunil: 306.8 cm/sec TR max P.7 mmHg Interpretation Summary Normal LV size. Moderate eccentric left ventricular hypertrophy. The estimated ejection fraction is 35 %. Unable to assess diastolic dysfunction due to arrhythmia. [place] : Akinetic. Compared to the previous there is minimal improvement in LV function Ordering Physician: Jamie Christina Referring Physician: BRIDGET DURHAM Performed By: Candace Doyle RDCS, RVT
== END ==
PROVIDERS: Family Provider Family Medicine; PCP Family Medicine; Referring Provider Internal Medicine Cardiovascular Disease; Visit Provider Internal Medicine Cardiovascular Disease
DX: R06.09 Other forms of dyspnea (principal); R06.02 Shortness of breath; I50.23 Acute on chronic systolic (congestive) heart failure
CPT/HCPCS: 93306

== ENCOUNTER 2019-01-31 08:58 | Outpatient (RCR) | payer MEDICARE, OTHER, SELFPAY ==
[2018-11-28 08:52] VITALS: BMI 29.5
== END 2019-01-31 18:00 | disposition home or self-care (01) ==
LOC: MTLAB 08:58
PROVIDERS: Family Provider Family Medicine; PCP Family Medicine; Referring Provider Internal Medicine Cardiovascular Disease; Visit Provider Internal Medicine Cardiovascular Disease
DX: I48.2 Chronic atrial fibrillation (principal); Z79.01 Long term (current) use of anticoagulants
CPT/HCPCS: 36416; 85610

== ENCOUNTER 2019-02-19 08:19 | Outpatient (RCR) | payer MEDICARE, OTHER, SELFPAY ==
[2018-11-28 08:52] VITALS: BMI 29.5
[2019-02-19 10:18] LABS: Prothrombin Time (Protime)PT. 22.5 SECONDS (11.7-14.9)
[2019-02-19 10:23] LABS: AST(SGOT) 31 U/L (15-37); Alanine Aminotransfer ALT/SGPT 19 U/L (13-56); Albumin, Serum 3.5 g/dL (3.2-5.0); Alkaline Phosphatase 85 U/L (45-117); Bilirubin, Direct 0.22 mg/dL (0.00-0.30); Cholesterol 166 mg/dL (200); Globulin 3.4 g/dL (2.2-4.2); High Density Lipoprotein 73 mg/dL; Protein, Total 6.9 g/dL (6.4-8.2); Triglycerides 62 mg/dL; Very Low Density Lipoprotein 12 mg/dL (5-40)
== END 2019-02-19 18:00 | disposition home or self-care (01) ==
LOC: MTLAB 08:19
PROVIDERS: Family Provider Family Medicine; PCP Family Medicine; Referring Provider Internal Medicine Cardiovascular Disease; Visit Provider Internal Medicine Cardiovascular Disease
DX: I48.20 Chronic atrial fibrillation, unspecified (principal); Z79.01 Long term (current) use of anticoagulants; E78.5 Hyperlipidemia, unspecified
CPT/HCPCS: 36415; 80061; 80076; 85610

== ENCOUNTER 2019-03-15 13:35 | Outpatient (RCR) | payer MEDICARE, OTHER, SELFPAY ==
[2018-11-28 08:52] VITALS: BMI 29.5
[2019-03-15 14:44] LABS: Hematocrit 41.6 % (37-47); Hemoglobin 12.6 g/dL (12.0-15.0); Mean Corp Hgb Conc 30.3 g/dL (32-36); Mean Corpuscular Hgb 27.9 pg (27.0-32.0); Mean Corpuscular Volume 92.2 fL (81-99); Mean Platelet Vol. 11.1 fl (6.2-12.0); Platelet Count 294 K/mm3 (150-450); RBC Distribution Width CV 15.2 % (11.6-14.6); RBC Distribution Width SD 51.8 fl (35.1-43.9); Red Blood Count 4.51 M/mm3 (4.2-5.4); White Blood Count 8.2 K/mm3 (4.4-11.0)
[2019-03-15 14:47] LABS: International Normalized Ratio 1.9; Prothrombin Time (Protime)PT. 21.3 SECONDS (11.7-14.9)
[2019-03-15 15:09] LABS: Anion Gap 8 (5-15); BUN 22 mg/dL (7-18); BUN/Creat Ratio 22.2 RATIO (10-20); Calcium,Total 8.8 mg/dL (8.5-10.1); Chloride 100 mmol/L (98-107); Creatinine, Serum 0.99 mg/dL (0.55-1.02); EST Glomerular Filtration Rate 58 mL/min (>60); Est Glom Filt Rate - Afr Amer 71 mL/min (>60); Glucose 145 mg/dL (74-106); Potassium 4.3 mmol/L (3.5-5.1); Sodium Level 139 mmol/L (136-145)
[2019-03-15 16:25] LABS: BNP,B-Type NATRIURETIC PEPTIDE 381.2 pg/mL (0-100)
== END 2019-03-15 18:00 | disposition home or self-care (01) ==
LOC: LAB 13:35
PROVIDERS: Family Provider Family Medicine; PCP Family Medicine; Referring Provider Internal Medicine Cardiovascular Disease; Visit Provider Internal Medicine Cardiovascular Disease
DX: I48.20 Chronic atrial fibrillation, unspecified (principal); Z79.01 Long term (current) use of anticoagulants; M62.81 Muscle weakness (generalized); R53.81 Other malaise; R06.02 Shortness of breath
CPT/HCPCS: 36415; 80048; 83880; 85027; 85610

== ENCOUNTER 2019-04-30 10:33 | Outpatient (RCR) | payer MEDICARE, OTHER, SELFPAY ==
[2019-04-01 09:57] VITALS: BMI 27.9
[2019-04-30 10:45] LABS: Prothrombin Time Fingerstick 28.3 SEC (11.9-14.4)
== END 2019-04-30 18:00 | disposition home or self-care (01) ==
LOC: MTLAB 10:33
PROVIDERS: Family Provider Family Medicine; PCP Family Medicine; Referring Provider Internal Medicine Cardiovascular Disease; Visit Provider Internal Medicine Cardiovascular Disease
DX: I48.20 Chronic atrial fibrillation, unspecified (principal); Z79.01 Long term (current) use of anticoagulants
CPT/HCPCS: 36416; 85610

== ENCOUNTER 2019-05-20 12:37 | Outpatient (RCR) | payer MEDICARE, OTHER, SELFPAY ==
[2019-04-01 09:57] VITALS: BMI 27.9
[2019-05-21 07:25] LABS: Prothrombin Time Fingerstick 32.4 SEC (11.9-14.4)
== END 2019-05-20 18:00 | disposition home or self-care (01) ==
LOC: MTLAB 12:37
PROVIDERS: Family Provider Family Medicine; PCP Family Medicine; Referring Provider Internal Medicine Cardiovascular Disease; Visit Provider Internal Medicine Cardiovascular Disease
DX: I48.20 Chronic atrial fibrillation, unspecified (principal); Z79.01 Long term (current) use of anticoagulants
CPT/HCPCS: 36416; 85610

== ENCOUNTER 2019-06-21 11:30 | Outpatient (RCR) | payer MEDICARE, OTHER, SELFPAY ==
[2019-04-01 09:57] VITALS: BMI 27.9
[2019-06-24 15:11] LABS: Prothrombin Time Fingerstick 25.9 SEC (11.9-14.4)
== END 2019-06-21 18:00 | disposition home or self-care (01) ==
LOC: MTLAB 11:30
PROVIDERS: Family Provider Family Medicine; PCP Family Medicine; Referring Provider Internal Medicine Cardiovascular Disease; Visit Provider Internal Medicine Cardiovascular Disease
DX: I48.20 Chronic atrial fibrillation, unspecified (principal); Z79.01 Long term (current) use of anticoagulants
CPT/HCPCS: 36416; 85610

== ENCOUNTER → 2019-07-25 08:22 | Outpatient (CLI) | payer MEDICARE, OTHER, SELFPAY ==
[2019-04-01 09:57] VITALS: BMI 27.9
[2019-07-25 10:33] LABS: T4 Free Direct 1.21 ng/dL (0.76-1.46); T4 Total, Thyroxin 10.6 ug/dL (4.8-13.9); Thyroid Stim Hormone (TSH) 2.23 uIU/mL (0.358-3.74)
== END ==
PROVIDERS: PCP Family Medicine; Referring Provider Family Medicine; Visit Provider Family Medicine
DX: E03.9 Hypothyroidism, unspecified (principal)
CPT/HCPCS: 36415; 84436; 84439; 84443

== ENCOUNTER 2019-08-27 07:34 | Outpatient (RCR) | payer MEDICARE, OTHER, SELFPAY ==
[2019-04-01 09:57] VITALS: BMI 27.9
[2019-08-27 10:03] LABS: International Normalized Ratio 2.1; Prothrombin Time (Protime)PT. 23.4 SECONDS (11.7-14.9)
[2019-08-27 10:06] LABS: Anion Gap 7 (5-15); BUN 28 mg/dL (7-18); BUN/Creat Ratio 30.5 RATIO (10-20); Calcium,Total 8.8 mg/dL (8.5-10.1); Chloride 106 mmol/L (98-107); Creatinine, Serum 0.92 mg/dL (0.55-1.02); EST Glomerular Filtration Rate 64 mL/min (>60); Est Glom Filt Rate - Afr Amer 77 mL/min (>60); Glucose 98 mg/dL (74-106); Potassium 4.3 mmol/L (3.5-5.1); Sodium Level 141 mmol/L (136-145)
== END 2019-09-12 18:00 | disposition home or self-care (01) ==
LOC: MTLAB 07:34
PROVIDERS: Nurse Practitioner Family; Family Provider Family Medicine; PCP Family Medicine; Referring Provider Internal Medicine Cardiovascular Disease; Visit Provider Internal Medicine Cardiovascular Disease
DX: I48.20 Chronic atrial fibrillation, unspecified (principal); Z79.01 Long term (current) use of anticoagulants
CPT/HCPCS: 36415; 80048; 85610

== ENCOUNTER 2019-11-06 09:40 | Outpatient (RCR) | payer MEDICARE, OTHER, SELFPAY ==
[2019-09-04 09:38] VITALS: BMI 28.3
[2019-11-06 10:06] LABS: Prothrombin Time Fingerstick 29.6 SEC (11.9-14.4)
== END 2019-11-06 18:00 | disposition home or self-care (01) ==
LOC: MTLAB 09:40
PROVIDERS: Family Provider Family Medicine; PCP Family Medicine; Referring Provider Internal Medicine Cardiovascular Disease; Visit Provider Internal Medicine Cardiovascular Disease
DX: I48.20 Chronic atrial fibrillation, unspecified (principal); Z79.01 Long term (current) use of anticoagulants
CPT/HCPCS: 36416; 85610

== ENCOUNTER → 2019-11-29 12:46 | Outpatient (CLI) | payer MEDICARE, OTHER, SELFPAY ==
[2019-09-04 09:38] VITALS: BMI 28.3
[2019-11-29 14:33] LABS: Anion Gap 5 (5-15); BUN 28 mg/dL (7-18); BUN/Creat Ratio 24.6 RATIO (10-20); Chloride 104 mmol/L (98-107); Creatinine, Serum 1.14 mg/dL (0.55-1.02); EST Glomerular Filtration Rate 50 mL/min (>60); Est Glom Filt Rate - Afr Amer 60 mL/min (>60); Glucose 136 mg/dL (74-106); Potassium 4.3 mmol/L (3.5-5.1); Sodium Level 138 mmol/L (136-145)
== END ==
PROVIDERS: PCP Family Medicine; Referring Provider Internal Medicine Cardiovascular Disease; Visit Provider Internal Medicine Cardiovascular Disease
DX: I50.20 Unspecified systolic (congestive) heart failure (principal); I42.2 Other hypertrophic cardiomyopathy
CPT/HCPCS: 36415; 80048

== ENCOUNTER 2019-12-23 08:53 | Outpatient (RCR) | payer MEDICARE, OTHER, SELFPAY ==
[2019-09-04 09:38] VITALS: BMI 28.3
== END 2020-01-13 18:00 | disposition home or self-care (01) ==
LOC: MTLAB 08:53
PROVIDERS: Family Provider Family Medicine; PCP Family Medicine; Referring Provider Internal Medicine Cardiovascular Disease; Visit Provider Internal Medicine Cardiovascular Disease
DX: I48.20 Chronic atrial fibrillation, unspecified (principal); Z79.01 Long term (current) use of anticoagulants
CPT/HCPCS: 36416; 85610

== ENCOUNTER → 2020-01-08 08:10 | Outpatient (CLI) | payer MEDICARE, OTHER, SELFPAY ==
[2019-09-04 09:38] VITALS: BMI 28.3
[2020-01-03 10:29] VITALS: BMI 28.6
--- NOTE | 2020-01-08 08:17 | BI_ITS ---
MAMMOGRAPHY - BILATERAL SCREENING REASON FOR EXAM: Female, 74 years old. Routine annual screening examination. PERTINENT HISTORY: Sister with breast cancer. Mother with breast cancer. TECHNIQUE: Digital bilateral breast jarad (3D mammographic acquisition) in the CC and MLO projections. 2-D mediolateral oblique (MLO) and craniocaudad (CC) views of both breasts were obtained. CAD: Full Field Digital Mammography with Computer Added Detection was performed. COMPARISON: Comparison is made with prior examination dated 07/18/2017. FINDINGS: Breast Composition: There are scattered areas of fibroglandular density. There are no dominant masses or suspicious calcifications. A pacemaker battery pack is seen in the left axillary region. No other significant abnormalities are identified. There has been no significant change since the prior study. BI/SCREEN MAMM (CAD) W/JARAD BILAT IMPRESSION: Stable bilateral screening mammogram. Yearly follow-up mammogram recommended. (A) ASSESSMENT CATEGORY: BIRADS Category 2: Benign. A letter regarding these results will be sent to the patient by the facility within 30 days. Approximately 10% of breast cancers are not detected by mammography. A normal mammogram should not delay biopsy of a clinically suspicious abnormality. [id number] Electronically Signed: Renny Obrien, at 9:08 EDT , Service support ,
== END ==
PROVIDERS: PCP Family Medicine; Referring Provider Family Medicine; Visit Provider Family Medicine
DX: Z12.31 Encounter for screening mammogram for malignant neoplasm of breast (principal); Z80.3 Family history of malignant neoplasm of breast
CPT/HCPCS: 77063; 77067

== ENCOUNTER 2020-03-02 08:25 | Outpatient (RCR) | payer MEDICARE, OTHER, SELFPAY ==
[2020-01-03 10:29] VITALS: BMI 28.6
[2020-03-02 08:56] LABS: Prothrombin Time Fingerstick 32.1 SEC (11.9-14.4)
== END 2020-03-02 18:00 | disposition home or self-care (01) ==
LOC: MTLAB 08:25
PROVIDERS: Family Provider Family Medicine; PCP Family Medicine; Referring Provider Internal Medicine Cardiovascular Disease; Visit Provider Internal Medicine Cardiovascular Disease
DX: I48.20 Chronic atrial fibrillation, unspecified (principal); Z79.01 Long term (current) use of anticoagulants
CPT/HCPCS: 36416; 85610

== ENCOUNTER 2020-04-14 10:25 | Outpatient (RCR) | payer MEDICARE, OTHER, SELFPAY ==
[2020-01-03 10:29] VITALS: BMI 28.6
== END 2020-04-14 19:00 | disposition home or self-care (01) ==
LOC: PT 10:25
PROVIDERS: PCP Family Medicine; Referring Provider Family Medicine; Visit Provider Family Medicine
DX: S46.001D Unspecified injury of muscle(s) and tendon(s) of the rotator cuff of right shoulder, subsequent encounter (principal)
CPT/HCPCS: 97161

== ENCOUNTER 2020-04-28 08:25 | Outpatient (RCR) | payer MEDICARE, OTHER, SELFPAY ==
[2020-01-03 10:29] VITALS: BMI 28.6
[2020-04-28 10:09] LABS: International Normalized Ratio 2.6; Prothrombin Time (Protime)PT. 27.5 SECONDS (11.7-14.9)
[2020-04-28 10:20] LABS: Thyroid Stim Hormone (TSH) 3.15 uIU/mL (0.358-3.74)
== END 2020-04-28 18:00 | disposition home or self-care (01) ==
LOC: MTLAB 08:25
PROVIDERS: Family Provider Family Medicine; PCP Family Medicine; Referring Provider Internal Medicine Cardiovascular Disease; Visit Provider Internal Medicine Cardiovascular Disease
DX: I48.20 Chronic atrial fibrillation, unspecified (principal); Z79.01 Long term (current) use of anticoagulants; E03.9 Hypothyroidism, unspecified
CPT/HCPCS: 36415; 84443; 85610

== ENCOUNTER 2020-06-17 08:30 | Outpatient (RCR) | payer MEDICARE, OTHER, SELFPAY ==
[2020-01-03 10:29] VITALS: BMI 28.6
[2020-06-17 10:35] LABS: International Normalized Ratio 2.3
[2020-06-17 11:31] LABS: AST(SGOT) 26 U/L (15-37); Alanine Aminotransfer ALT/SGPT 19 U/L (13-56); Albumin, Serum 3.8 g/dL (3.2-5.0); Alkaline Phosphatase 81 U/L (45-117); Cholesterol 173 mg/dL (200); Globulin 3.2 g/dL (2.2-4.2); High Density Lipoprotein 78 mg/dL; Triglycerides 73 mg/dL; Very Low Density Lipoprotein 15 mg/dL (5-40)
== END 2020-06-17 18:00 | disposition home or self-care (01) ==
LOC: MTLAB 08:30
PROVIDERS: Family Provider Family Medicine; PCP Family Medicine; Referring Provider Internal Medicine Cardiovascular Disease; Visit Provider Internal Medicine Cardiovascular Disease
DX: I48.11 Longstanding persistent atrial fibrillation (principal); E78.5 Hyperlipidemia, unspecified
CPT/HCPCS: 36415; 80061; 80076; 85610

== ENCOUNTER 2020-08-18 08:28 | Outpatient (RCR) | payer MEDICARE, OTHER, SELFPAY ==
[2020-01-03 10:29] VITALS: BMI 28.6
[2020-08-18 10:07] LABS: Absolute Lymphocyte Count 0.85 X10^3/uL (0.83-4.51); Absolute Neutrophil Count 5.4 X10^3/uL (2.0-7.7); Basophil# 0.08 X10^3/uL; Basophil% 1.1 % (0-1); Eosinophil# 0.15 X10^3/uL; Eosinophils% 2.1 % (0-5); Hematocrit 40.6 % (37-47); Hemoglobin 12.4 g/dL (12.0-15.0); Lymphocyte # 0.85 X10^3/ul (4.0); Lymphocyte % 11.8 % (19-41); Mean Corp Hgb Conc 30.5 g/dL (32-36); Mean Corpuscular Hgb 28.1 pg (27.0-32.0); Mean Corpuscular Volume 92.1 fL (81-99); Mean Platelet Vol. 11.9 fl (6.2-12.0); Monocyte# 0.73 X10^3/uL; Monocyte% 10.1 % (0-10); NRBC Flagged by Analyzer 0 % (0-5); Neutrophil # 5.39 X10^3/uL (2.7-7.7); Neutrophil % 74.8 % (47-70); Platelet Count 231 K/mm3 (150-450); RBC Distribution Width SD 50.1 fl (35.1-43.9); Red Blood Count 4.41 M/mm3 (4.2-5.4); White Blood Count 7.2 K/mm3 (4.4-11.0)
[2020-08-18 10:14] LABS: International Normalized Ratio 2.2; Prothrombin Time (Protime)PT. 23.3 SECONDS (11.7-14.9)
[2020-08-18 10:49] LABS: Anion Gap 3 (5-15); BUN 27 mg/dL (7-18); BUN/Creat Ratio 23.7 RATIO (10-20); Calcium,Total 9.3 mg/dL (8.5-10.1); Chloride 101 mmol/L (98-107); Creatinine, Serum 1.14 mg/dL (0.55-1.02); EST Glomerular Filtration Rate 50 mL/min (>60); Est Glom Filt Rate - Afr Amer 60 mL/min (>60); Glucose 84 mg/dL (74-106); Sodium Level 136 mmol/L (136-145)
== END 2020-08-18 18:00 | disposition home or self-care (01) ==
LOC: MTLAB 08:28
PROVIDERS: Nurse Practitioner Family; Family Provider Family Medicine; PCP Family Medicine; Referring Provider Internal Medicine Cardiovascular Disease; Visit Provider Internal Medicine Cardiovascular Disease
DX: I48.11 Longstanding persistent atrial fibrillation (principal); Z79.01 Long term (current) use of anticoagulants; R06.00 Dyspnea, unspecified; R53.83 Other fatigue
CPT/HCPCS: 36415; 80048; 83880; 85025; 85610

== ENCOUNTER → 2020-09-02 09:49 | Outpatient (CLI) | payer MEDICARE, OTHER, SELFPAY ==
[2020-08-20 16:35] VITALS: BMI 28.6
--- NOTE | 2020-09-02 09:51 | ECHOD_ITS ---
Reason For Study: DYSPNEA/SOB Procedure This was a 2D Doppler, Color Flow transthoracic echocardiogram. Exam performed in department. Left Ventricle Normal LV size. The estimated ejection fraction is 37 %. Moderate segmental systolic dysfunction (see wall motion). Stage 3 diastolic dysfunction. Basal inferoseptal: Hypokinetic. Inferior [place] : Hypokinetic. [place] : Akinetic. Apical wall motion abnormality may reflect pacemaker activation. Right Ventricle Normal RV size. ICD or pacer leads identified within the right ventricle. Normal systolic function. Atria The left atrium is moderately enlarged. The right atrium is mildly enlarged. Mitral Valve Bileaflet diffuse mitral valve thickening. Mild (1+) eccentric mitral valve insufficiency. Tricuspid Valve Normal tricuspid valve. Mild to moderate (1-2+) tricuspid valve insufficiency. Pulmonary artery systolic pressure is 44 mmHg. Aortic Valve Trisinus/trileaflet aortic valve. Mild diffuse aortic valve thickening. Mild (1+) aortic valve insufficiency. Pulmonic Valve Normal pulmonic valve. Great Vessels Mildly dilated aortic root. The pulmonary artery is normal size. and partially collapses. Pericardium/Pleural No pericardial effusion. MMode/2D Measurements & Calculations LVIDd: 5.9 cm IVSd: 1.2 cm Ao root diam: 3.8 cm LVIDs: 4.9 cm LVPWd: 1.1 cm RVDd: 2.7 cm FS: 17.4 % LAV(MOD-bp): 139.2 ml LVAd ap4: 26.8 cm2 LVAd ap2: 24.7 cm2 LAV(MOD-bp) Indexed: 75.0 ml/m2 LVLd ap4: 6.9 cm LVLd ap2: 6.9 cm LAV(MOD-sp2): 141.0 ml EDV(MOD-sp4): 86.9 ml EDV(MOD-sp2): 71.7 ml LAV(MOD-sp4): 137.2 ml EDV(sp4-el): 88.6 ml EDV(sp2-el): 74.8 ml LVAs ap4: 19.6 cm2 LVAs ap2: 17.5 cm2 LVLs ap4: 6.4 cm LVLs ap2: 6.9 cm ESV(MOD-sp4): 48.8 ml ESV(MOD-sp2): 39.6 ml ESV(sp4-el): 50.4 ml ESV(sp2-el): 37.9 ml EF(MOD-sp4): 43.9 % EF(MOD-sp2): 44.7 % EF(sp4-el): 43.1 % SV(MOD-sp4): 38.1 ml SV(MOD-sp2): 32.1 ml SV(sp4-el): 38.2 ml LA dimension(2D): 6.2 cm LA A4 area: 35.8 cm2 RA A4 area: 30.7 cm2 Time Measurements MV dec time: 0.13 sec Doppler Measurements & Calculations MV E max jovanni: 109.3 cm/sec Lat Peak E' Jovanni: 5.7 cm/sec Med Peak E' Jovanni: 2.7 cm/sec MV A max jovanni: 37.3 cm/sec E/E' lat: 19.2 E/E' med: 40.3 MV E/A: 2.9 Ao V2 max: 99.5 cm/sec AI max jovanni: 326.0 cm/sec LV V1 max: 86.0 cm/sec Ao max P.0 mmHg AI max P.6 mmHg LV V1 max P.0 mmHg Ao V2 mean: 72.1 cm/sec AI dec slope: 185.8 cm/sec2 LV V1 mean P.4 mmHg Ao mean P.2 mmHg AI P1/2t: 514.0 msec LV V1 mean: 55.4 cm/sec Ao V2 VTI: 20.9 cm LV V1 VTI: 16.1 cm MR max jovanni: 379.6 cm/sec PA V2 max: 101.2 cm/sec PI end-d jovanni: 145.6 cm/sec MR max P.7 mmHg MR mean jovanni: 296.5 cm/sec MR mean P.9 mmHg MR VTI: 117.0 cm TR max jovanni: 318.7 cm/sec TR max P.7 mmHg ECHO/Echo Complete Interpretation Summary The estimated ejection fraction is 37 %. Moderate segmental systolic dysfunction (see wall motion). Stage 3 diastolic dysfunction. Compared to previous study, the left ventricular systolic function is the same. . Ordering Physician: Jamie Christina Referring Physician: Humaira Churchill Performed By: Galilea Ni RDCS, RVT
== END ==
PROVIDERS: PCP Family Medicine; Referring Provider Internal Medicine Cardiovascular Disease; Visit Provider Internal Medicine Cardiovascular Disease
DX: R06.00 Dyspnea, unspecified (principal)
CPT/HCPCS: 93306

== ENCOUNTER 2020-10-14 09:21 | Outpatient (RCR) | payer MEDICARE, OTHER, SELFPAY ==
[2020-08-20 16:35] VITALS: BMI 28.6
[2020-10-14 09:22] VITALS: BMI 28.6
[2020-10-14 09:35] LABS: INR Fingerstick 2.1; Prothrombin Time Fingerstick 24.3 SEC (11.9-14.4)
[2020-10-14 11:48] LABS: Anion Gap 6 (5-15); BUN 28 mg/dL (7-18); BUN/Creat Ratio 23.9 RATIO (10-20); Calcium,Total 9.2 mg/dL (8.5-10.1); Chloride 101 mmol/L (98-107); Creatinine, Serum 1.17 mg/dL (0.55-1.02); EST Glomerular Filtration Rate 48 mL/min (>60); Est Glom Filt Rate - Afr Amer 58 mL/min (>60); Glucose 98 mg/dL (74-106); Potassium 4.3 mmol/L (3.5-5.1); Sodium Level 137 mmol/L (136-145)
== END 2020-10-14 18:00 | disposition home or self-care (01) ==
LOC: LAB 09:21
PROVIDERS: Physician Assistant Medical; Family Provider Family Medicine; PCP Family Medicine; Referring Provider Internal Medicine Cardiovascular Disease; Visit Provider Internal Medicine Cardiovascular Disease
DX: I48.11 Longstanding persistent atrial fibrillation (principal); Z95.0 Presence of cardiac pacemaker; E78.00 Pure hypercholesterolemia, unspecified; R06.00 Dyspnea, unspecified; I42.2 Other hypertrophic cardiomyopathy; I50.22 Chronic systolic (congestive) heart failure
CPT/HCPCS: 36415; 36416; 80048; 85610

== ENCOUNTER → 2020-11-03 11:01 | Outpatient (CLI) | payer MEDICARE, OTHER, SELFPAY ==
[2020-10-14 09:52] VITALS: BMI 28.6
--- NOTE | 2020-11-03 11:03 | RAD_ITS ---
HISTORY: Rolled foot while walking, pain. EXAMINATION/TECHNIQUE: XR Foot Min 3 Views: Right COMPARISON: None FINDINGS: SOFT TISSUES: Soft tissue swelling along dorsum of foot. No radiopaque foreign body identified. BONES/JOINTS: No acute fracture or subluxation. Normal alignment. Preservation of the joint spaces. No sclerotic or destructive changes observed. RAD/Foot min 3 Views IMPRESSION: Right foot soft tissue swelling with no acute osseous injury. at 0031 Reported and signed by: Brody Mcconnell MD Electronically Signed: Brody Mcconnell MD at 0:29 EDT Tel , Service support ,
== END ==
PROVIDERS: PCP Family Medicine; Referring Provider Family Medicine; Visit Provider Family Medicine
DX: M79.671 Pain in right foot (principal)
CPT/HCPCS: 73630

== ENCOUNTER 2020-12-03 08:13 | Outpatient (RCR) | payer MEDICARE, OTHER, SELFPAY ==
[2020-10-14 09:52] VITALS: BMI 28.6
[2020-11-12 10:44] LABS: International Normalized Ratio 1.9; Prothrombin Time (Protime)PT. 21.3 SECONDS (11.7-14.9)
[2020-11-12 10:56] LABS: Anion Gap 6 (5-15); BUN 24 mg/dL (7-18); BUN/Creat Ratio 18.9 RATIO (10-20); Chloride 100 mmol/L (98-107); Creatinine, Serum 1.27 mg/dL (0.55-1.02); EST Glomerular Filtration Rate 44 mL/min (>60); Est Glom Filt Rate - Afr Amer 53 mL/min (>60); Glucose 99 mg/dL (74-106); Potassium 4.5 mmol/L (3.5-5.1); Sodium Level 140 mmol/L (136-145)
[2020-12-03 10:26] LABS: Prothrombin Time (Protime)PT. 21.6 SECONDS (11.7-14.9)
[2020-12-03 10:36] LABS: Anion Gap 5 (5-15); BUN 34 mg/dL (7-18); BUN/Creat Ratio 25.6 RATIO (10-20); Chloride 103 mmol/L (98-107); Creatinine, Serum 1.33 mg/dL (0.55-1.02); EST Glomerular Filtration Rate 41 mL/min (>60); Est Glom Filt Rate - Afr Amer 50 mL/min (>60); Glucose 76 mg/dL (74-106); Potassium 4.1 mmol/L (3.5-5.1); Sodium Level 140 mmol/L (136-145)
== END 2020-12-03 18:00 | disposition home or self-care (01) ==
LOC: MTLAB 08:13
PROVIDERS: Physician Assistant Medical; Family Provider Family Medicine; PCP Family Medicine; Referring Provider Internal Medicine Cardiovascular Disease; Visit Provider Internal Medicine Cardiovascular Disease
DX: I48.11 Longstanding persistent atrial fibrillation (principal); Z79.01 Long term (current) use of anticoagulants; I50.22 Chronic systolic (congestive) heart failure; I42.2 Other hypertrophic cardiomyopathy
CPT/HCPCS: 36415; 80048; 85610

== ENCOUNTER 2021-02-10 09:14 | Outpatient (RCR) | payer MEDICARE, OTHER, SELFPAY ==
[2020-11-12 10:55] VITALS: BMI 28.8
[2021-01-22 12:27] LABS: International Normalized Ratio 1.6; Prothrombin Time (Protime)PT. 18.4 SECONDS (11.7-14.9)
[2021-01-22 12:48] LABS: T4 Total, Thyroxin 11.1 ug/dL (4.8-13.9); Thyroid Stim Hormone (TSH) 0.87 uIU/mL (0.358-3.74)
[2021-02-10 10:34] LABS: INR Fingerstick 2.4; Prothrombin Time Fingerstick 26.7 SEC (11.9-14.4)
== END 2021-02-10 18:00 | disposition home or self-care (01) ==
LOC: MTLAB 09:14
PROVIDERS: Family Provider Family Medicine; PCP Family Medicine; Referring Provider Internal Medicine Cardiovascular Disease; Visit Provider Internal Medicine Cardiovascular Disease
DX: I48.11 Longstanding persistent atrial fibrillation (principal); Z79.01 Long term (current) use of anticoagulants; E03.9 Hypothyroidism, unspecified
CPT/HCPCS: 36415; 36416; 84436; 84443; 85610

== ENCOUNTER → 2021-02-24 13:50 | Outpatient (CLI) | payer MEDICARE, OTHER, SELFPAY ==
[2021-02-24 15:07] LABS: AST(SGOT) 27 U/L (15-37); Alanine Aminotransfer ALT/SGPT 20 U/L (13-56); Albumin, Serum 3.7 g/dL (3.2-5.0); Alkaline Phosphatase 84 U/L (45-117); Anion Gap 6 (5-15); BUN 40 mg/dL (7-18); BUN/Creat Ratio 28.4 RATIO (10-20); Bilirubin, Direct 0.23 mg/dL (0.00-0.30); Calcium,Total 9.1 mg/dL (8.5-10.1); Chloride 101 mmol/L (98-107); Cholesterol 182 mg/dL (200); Creatinine, Serum 1.41 mg/dL (0.55-1.02); EST Glomerular Filtration Rate 39 mL/min (>60); Est Glom Filt Rate - Afr Amer 47 mL/min (>60); Globulin 3.5 g/dL (2.2-4.2); Glucose 87 mg/dL (74-106); High Density Lipoprotein 81 mg/dL; Potassium 4.4 mmol/L (3.5-5.1); Protein, Total 7.2 g/dL (6.4-8.2); Sodium Level 137 mmol/L (136-145); T4 Total, Thyroxin 11.6 ug/dL (4.8-13.9); Thyroid Stim Hormone (TSH) 1.01 uIU/mL (0.358-3.74); Triglycerides 70 mg/dL; Very Low Density Lipoprotein 14 mg/dL (5-40)
== END ==
PROVIDERS: PCP Family Medicine; Referring Provider Internal Medicine Cardiovascular Disease; Visit Provider Internal Medicine Cardiovascular Disease
DX: E03.9 Hypothyroidism, unspecified (principal); I42.2 Other hypertrophic cardiomyopathy; E78.00 Pure hypercholesterolemia, unspecified
CPT/HCPCS: 36415; 80048; 80061; 80076; 84436; 84443

== ENCOUNTER 2021-03-31 09:56 | Outpatient (RCR) | payer MEDICARE, OTHER, SELFPAY ==
[2021-02-12 01:59] VITALS: BMI 28.8
== END 2021-04-13 18:00 | disposition home or self-care (01) ==
LOC: MTLAB 09:56
PROVIDERS: Family Provider Family Medicine; PCP Family Medicine; Referring Provider Internal Medicine Cardiovascular Disease; Visit Provider Internal Medicine Cardiovascular Disease
DX: I48.11 Longstanding persistent atrial fibrillation (principal)
CPT/HCPCS: 36416; 85610

== ENCOUNTER → 2021-04-21 14:43 | Outpatient (CLI) | payer MEDICARE, OTHER, SELFPAY ==
--- NOTE | 2021-04-21 14:47 | CT_ITS ---
EXAM: CT NECK WITH INTRAVENOUS CONTRAST CLINICAL INDICATION: VOCAL CORD PARALYSIS TECHNIQUE: Helically acquired images were obtained of the neck with intravenous contrast. This CT exam was performed using one or more of the following dose reduction techniques: automated exposure control, adjustment of the mA and/or kV according to patient size, and/or use of iterative reconstruction technique. This report was created using [employer] report Gala[employer] technology. CONTRAST: IV 100mL Isovue-300 COMPARISON: None. FINDINGS: NASOPHARYNX: Unremarkable. SUPRAHYOID NECK: Unremarkable. Oropharynx, oral cavity, parapharyngeal space and retropharyngeal space are unremarkable. INFRAHYOID NECK: Calcifications in the region of the arytenoids extending to the false cords. The left false cord deviates medially. SUBMANDIBULAR/PAROTID GLANDS: Unremarkable. Glands are normal in size. THYROID: Unremarkable. No enlarged or calcified nodules. BONES/JOINTS: Degenerative findings in the cervical spine. No acute fracture. SOFT TISSUES: Unremarkable. VASCULATURE: No acute findings. LYMPH NODES: Unremarkable. No lymphadenopathy. LUNG APICES: Unremarkable as visualized. TUBES, LINES AND DEVICES: There is a left sided pacemaker battery pack. CT/Soft Tissue Neck WITH Contrast IMPRESSION: Calcifications in the region of the arytenoids extending to the false cords. The left false cord deviates medially. Electronically Signed: Stuart Simpson MD at 21:08 EST , Service support ,
[2021-04-21 15:16] LABS: CREATININE FINGERSTICK 0.9 mg/dL (0.55-1.02); EGFR FINGERSTICK > 60.0000 mL/min (>60)
== END ==
PROVIDERS: PCP Family Medicine; Referring Provider Otolaryngology; Visit Provider Otolaryngology
DX: J38.01 Paralysis of vocal cords and larynx, unilateral (principal)
CPT/HCPCS: 70491; Q9967

== ENCOUNTER 2021-05-20 11:13 | Outpatient (RCR) | payer MEDICARE, OTHER, SELFPAY ==
[2021-04-14 04:10] VITALS: BMI 28.8
[2021-05-20 11:25] LABS: Prothrombin Time Fingerstick 32.7 SEC (11.9-14.4)
== END 2021-06-14 18:00 | disposition home or self-care (01) ==
LOC: MTLAB 11:13
PROVIDERS: Family Provider Family Medicine; PCP Family Medicine; Referring Provider Internal Medicine Cardiovascular Disease; Visit Provider Internal Medicine Cardiovascular Disease
DX: I48.11 Longstanding persistent atrial fibrillation (principal)
CPT/HCPCS: 36416; 85610

== ENCOUNTER 2021-07-20 08:48 | Outpatient (RCR) | payer MEDICARE, OTHER, SELFPAY ==
[2021-06-15 01:47] VITALS: BMI 28.8
[2021-07-20 14:31] LABS: INR Fingerstick 2.4; Prothrombin Time Fingerstick 27.6 SEC (11.7-14.9)
== END 2021-08-12 18:00 | disposition home or self-care (01) ==
LOC: MTLAB 08:48
PROVIDERS: Family Provider Family Medicine; PCP Family Medicine; Referring Provider Internal Medicine Cardiovascular Disease; Visit Provider Internal Medicine Cardiovascular Disease
DX: I48.11 Longstanding persistent atrial fibrillation (principal); Z79.01 Long term (current) use of anticoagulants
CPT/HCPCS: 36416; 85610

== ENCOUNTER 2021-08-31 09:32 | Outpatient (RCR) | payer MEDICARE, OTHER, SELFPAY ==
[2021-08-13 03:01] VITALS: BMI 28.8
[2021-08-31 09:45] LABS: INR Fingerstick 2.2; Prothrombin Time Fingerstick 25.8 SEC (11.7-14.9)
== END 2021-08-31 18:00 | disposition home or self-care (01) ==
LOC: MTLAB 09:32
PROVIDERS: Family Provider Family Medicine; PCP Family Medicine; Referring Provider Internal Medicine Cardiovascular Disease; Visit Provider Internal Medicine Cardiovascular Disease
DX: I48.11 Longstanding persistent atrial fibrillation (principal); Z79.01 Long term (current) use of anticoagulants
CPT/HCPCS: 36416; 85610

== ENCOUNTER → 2021-10-12 | Outpatient (CLI) | payer MEDICARE, OTHER, SELFPAY ==
--- NOTE | 2021-10-12 09:52 | ECHOCS_ITS ---
Reason For Study: CAD/ASHD Procedure This was a 2D Doppler, Color Flow transthoracic echocardiogram. The study was technically difficult. Contrast injection was performed. Exam performed in department. Left Ventricle Normal LV size. The estimated ejection fraction is 40 %. Moderate segmental systolic dysfunction (see wall motion). Septal [place] : Dyskinetic. Lateral [place] : Akinetic. Mid-Anterior : Hypokinetic. Mid-anteroseptal : Hypokinetic. Inferior [place] : Hypokinetic. Basal inferoseptal: Hypokinetic. Right Ventricle Normal RV size. ICD or pacer leads identified within the right ventricle. Normal systolic function. Atria The left atrium is severely enlarged. The right atrium is severely enlarged. ICD or pacer leads identified within the right atrium. Mitral Valve Bileaflet diffuse mitral valve thickening. Mild-Moderate (1-2+) eccentric mitral valve insufficiency. Aortic Valve Trisinus/trileaflet aortic valve. Mild (1+) aortic valve insufficiency. Pulmonic Valve Normal pulmonic valve. Great Vessels Normal aortic root. The pulmonary artery is normal size. Normal inferior vena cava. Pericardium/Pleural No pericardial effusion. Medication 22 gauge I.V. with prn adaptor inserted into left arm. Diluted definity 3ml given slow IV push to enhance endocardial definition. MMode/2D Measurements & Calculations LVIDd: 5.0 cm IVSd: 1.6 cm Ao root diam: 3.7 cm LVIDs: 4.1 cm LVPWd: 0.96 cm LA dimension: 5.3 cm FS: 17.9 % LAV(MOD-bp): 172.9 ml LA A4 area: 41.7 cm2 RA A4 area: 36.4 cm2 LAV(MOD-bp) Indexed: 93.9 ml/m2 LAV(MOD-sp2): 158.8 ml LAV(MOD-sp4): 172.0 ml Time Measurements MV dec time: 0.16 sec Doppler Measurements & Calculations MV E max sunil: 99.6 cm/sec Ao V2 max: 82.2 cm/sec AI max sunil: 317.7 cm/sec Ao max P.7 mmHg AI max P.4 mmHg AI dec slope: 123.6 cm/sec2 AI P1/2t: 752.9 msec LV V1 max: 73.4 cm/sec PA V2 max: 89.9 cm/sec PI end-d sunil: 160.5 cm/sec LV V1 max P.2 mmHg TR max sunil: 323.7 cm/sec TR max P.9 mmHg ECHO/Echo Complete W/ Contrast Interpretation Summary Normal LV size. The estimated ejection fraction is 40 %. Moderate segmental systolic dysfunction (see wall motion). ICD or pacer leads identified within the right ventricle. The left atrium is severely enlarged. The right atrium is severely enlarged. Ordering Physician: Jamie Christina Referring Physician: Humaira Churchill M.D. Performed By: Jules Javier RCS
== END | disposition home or self-care (01) ==
LOC: CVS 09:51
PROVIDERS: PCP Family Medicine; Visit Provider Internal Medicine Cardiovascular Disease
DX: I27.21 Secondary pulmonary arterial hypertension (principal); I25.10 Atherosclerotic heart disease of native coronary artery without angina pectoris
CPT/HCPCS: 93306; Q9957; A4216; C8929

== ENCOUNTER 2021-10-20 08:50 | Outpatient (RCR) | payer MEDICARE, OTHER, SELFPAY ==
[2021-09-12 05:29] VITALS: BMI 28.8
[2021-10-20 09:01] LABS: INR Fingerstick 2.8; Prothrombin Time Fingerstick 32.4 SEC (11.7-14.9)
== END 2021-11-11 16:00 | disposition home or self-care (01) ==
LOC: MTLAB 08:50
PROVIDERS: Family Provider Family Medicine; PCP Family Medicine; Referring Provider Internal Medicine Cardiovascular Disease; Visit Provider Internal Medicine Cardiovascular Disease
DX: I48.11 Longstanding persistent atrial fibrillation (principal); Z79.01 Long term (current) use of anticoagulants
CPT/HCPCS: 36416; 85610

== ENCOUNTER 2021-12-22 08:30 | Outpatient (RCR) | payer MEDICARE, OTHER, SELFPAY ==
[2021-11-12 08:16] VITALS: BMI 28.8
[2021-12-22 08:40] LABS: INR Fingerstick 2.6; Prothrombin Time Fingerstick 29.8 SEC (11.7-14.9)
== END 2021-12-22 18:00 | disposition home or self-care (01) ==
LOC: MTLAB 08:30
PROVIDERS: Family Provider Family Medicine; PCP Family Medicine; Referring Provider Internal Medicine Cardiovascular Disease; Visit Provider Internal Medicine Cardiovascular Disease
DX: I48.11 Longstanding persistent atrial fibrillation (principal); Z79.01 Long term (current) use of anticoagulants
CPT/HCPCS: 36416; 85610

== ENCOUNTER 2022-02-03 09:17 | Outpatient (RCR) | payer MEDICARE, OTHER, SELFPAY ==
[2022-01-13 01:00] VITALS: BMI 28.8
[2022-02-03 09:30] LABS: INR Fingerstick 2.6; Prothrombin Time Fingerstick 30.4 SEC (11.7-14.9)
== END 2022-02-03 18:00 | disposition home or self-care (01) ==
LOC: MTLAB 09:17
PROVIDERS: Family Provider Family Medicine; PCP Family Medicine; Referring Provider Internal Medicine Cardiovascular Disease; Visit Provider Internal Medicine Cardiovascular Disease
DX: I48.11 Longstanding persistent atrial fibrillation (principal); Z79.01 Long term (current) use of anticoagulants
CPT/HCPCS: 36416; 85610

== ENCOUNTER 2022-03-15 08:19 | Outpatient (RCR) | payer MEDICARE, OTHER, SELFPAY ==
[2022-02-12 01:50] VITALS: BMI 28.8
[2022-03-15 10:33] LABS: International Normalized Ratio 2.2; Prothrombin Time (Protime)PT. 24.4 SECONDS (11.7-14.9)
[2022-03-15 10:58] LABS: AST(SGOT) 24 U/L (15-37); Alanine Aminotransfer ALT/SGPT 22 U/L (13-56); Albumin, Serum 3.7 g/dL (3.2-5.0); Alkaline Phosphatase 82 U/L (45-117); Anion Gap 6 (5-15); BUN 31 mg/dL (7-18); Bilirubin, Direct 0.18 mg/dL (0.00-0.30); Calcium,Total 9.3 mg/dL (8.5-10.1); Chloride 105 mmol/L (98-107); Cholesterol 171 mg/dL (200); Creatinine, Serum 1.41 mg/dL (0.55-1.02); EST Glomerular Filtration Rate 39 mL/min (>60); Est Glom Filt Rate - Afr Amer 47 mL/min (>60); Globulin 3.4 g/dL (2.2-4.2); Glucose 92 mg/dL (74-106); High Density Lipoprotein 79 mg/dL; Potassium 4.5 mmol/L (3.5-5.1); Protein, Total 7.1 g/dL (6.4-8.2); Sodium Level 140 mmol/L (136-145); Thyroid Stim Hormone (TSH) 2.28 uIU/mL (0.358-3.74); Triglycerides 65 mg/dL; Very Low Density Lipoprotein 13 mg/dL (5-40)
== END 2022-04-13 18:00 | disposition home or self-care (01) ==
LOC: MTLAB 08:19
PROVIDERS: Family Provider Family Medicine; PCP Family Medicine; Referring Provider Internal Medicine Cardiovascular Disease; Visit Provider Internal Medicine Cardiovascular Disease
DX: I48.11 Longstanding persistent atrial fibrillation (principal); Z79.01 Long term (current) use of anticoagulants; E03.9 Hypothyroidism, unspecified; E78.00 Pure hypercholesterolemia, unspecified; E78.5 Hyperlipidemia, unspecified
CPT/HCPCS: 36415; 80048; 80061; 80076; 84443; 85610

== ENCOUNTER → 2022-04-08 | Outpatient (CLI) | payer MEDICARE, OTHER, SELFPAY ==
--- NOTE | 2022-04-08 14:25 | RAD_ITS ---
STUDY: X-RAY - PELVIS AND RIGHT HIP REASON FOR EXAM: Female, 76 years old. Difficulty walking THIGH PAIN TECHNIQUE: XR Hip Unilateral with Pelvis when performed; 2-3 Views COMPARISON: None. FINDINGS: There is a non-specific bowel gas pattern. Normal visualized soft tissue structures. There are degenerative changes of the lumbar spine. Normal bilateral iliac wings, sacroiliac joints and visualized sacrum. Normal bilateral superior and inferior pubic rami. Normal pubic symphysis. Normal bilateral ischial tuberosities. Normal visualized femoral head. Normal acetabulum. Normal hip joint. RAD/HIP, UNI W/ Pelvis 2-3 Views IMPRESSION: No acute findings. Electronically Signed: Stuart Simpson MD at 16:21 EST ,
== END | disposition home or self-care (01) ==
LOC: MTRAD 14:23
PROVIDERS: PCP Family Medicine; Referring Provider Family Medicine; Visit Provider Family Medicine
DX: M79.651 Pain in right thigh (principal)
CPT/HCPCS: 73502

== ENCOUNTER 2022-04-16 08:59 | Emergency (ER) | payer MEDICARE, OTHER, SELFPAY ==
[2022-04-16 09:02] VITALS: BP 101/65; PULSE 101; RESP 14; TEMP 36.8; O2SAT 95; BMI 29.9
--- NOTE | 2022-04-16 09:22 | RAD_ITS ---
STUDY: X-RAY - LEFT ANKLE REASON FOR EXAM: Female, 76 years old. injury TECHNIQUE: 3 view(s) of the ankle. COMPARISON: None. FINDINGS: Normal visualized distal tibia and fibula. Normal medial and lateral malleoli. Normal tibiotalar articulation and ankle mortise. Normal visualized talus and calcaneus. The visualized subtalar, talonavicular, calcaneocuboid and tarsal articulations are normal. The soft tissue structures are unremarkable. RAD/Ankle min 3 Views IMPRESSION: Normal x-ray examination of the ankle. Electronically Signed: Koko Marcos MD at 9:42 EST ,
--- NOTE | 2022-04-16 09:22 | EDS_ITS ---
HPI History of Present Illness Chief Complaint: Lower Extremity Injury Informant: patient Narrative Narrative: 76-year-old female states she has a bad right leg and recently got a cortisone injection and at that it still painful. Yesterday she fell causing inversion injury to the left ankle and notes that now the left ankle is swollen and painful and she cannot get up. She however does not wish to go to a detention stating that she is going to use a wheelchair at home. She is on Coumadin but denies hitting her head or any neck pain [facility] Medical History Chronic combined systolic and diastolic CHF (congestive heart failure) FH: sudden cardiac (SCD) Hyperlipidemia Hypertrophic cardiomyopathy Hypothyroidism Left ventricular diastolic dysfunction Longstanding persistent atrial fibrillation Secondary pulmonary arterial hypertension Sick sinus syndrome 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 Vocal cord paralysis, unilateral complete Home Medications aspirin 81 mg chewable tablet 81 mg PO DAILY@0800 01/22/15 [History Last Taken 01/30/17] triamcinolone acetonide 55 mcg nasal spray aerosol 1 spray NS PRN PRN Allergies 09/15/17 [History Last Taken Unknown] cholecalciferol (vitamin D3) 25 mcg (1,000 unit) capsule 1,000 unit PO DAILY 07/24/18 [History Last Taken Unknown] levothyroxine 100 mcg tablet 100 mcg PO Q OTHER DAY 07/24/18 [History Last Taken Unknown] levothyroxine 75 mcg tablet 75 mcg PO Q OTHER DAY 07/24/18 [History Last Taken Unknown] loratadine 10 mg tablet 10 mg PO DAILY PRN 07/24/18 [History Last Taken Unknown] vit C 250 mg-vit E 90 mg-zinc 40 mg-copper 1 [id number] capsule (PreserVision AREDS-2) 1 tab PO DAILY 07/24/18 [History Last Taken Unknown] warfarin 1 mg tablet 1 mg PO DAILY 07/24/18 [History Last Taken Unknown] Handicap Parking Placard #1 ea 07/07/20 [Rx Last Taken Unknown] acetaminophen 160 mg chewable tablet (Children's Tylenol) 160 mg PO DAILY 10/14/20 [History Last Taken Unknown] albuterol sulfate 90 mcg/actuation aerosol inhaler 2 puff inhalation Q6H PRN 10/14/20 [History Last Taken Unknown] lactobacillus combination no.8 3 billion cell capsule (Adult Probiotic) 3,000 mmu cells PO DAILY 10/14/20 [History Last Taken Unknown] verapamil 120 mg tablet,extended release 120 mg PO DAILY #7 tabs 06/10/21 [Rx Last Taken Unknown] warfarin 5 mg tablet 5 mg PO .COMPLEX #90 tabs 06/29/21 [Rx Last Taken Unknown] furosemide 40 mg tablet (Lasix) 80 mg PO BID 09/21/21 [History Last Taken Unkn own] magnesium 200 mg tablet 200 mg PO DAILY 09/21/21 [History Last Taken Unknown] spironolactone 25 mg tablet (Aldactone) 25 mg PO DAILY 90 days #90 tabs 10/27/21 [Rx Last Taken Unknown] famotidine 40 mg tablet 40 mg PO DAILY 04/05/22 [History Last Taken Unknown] sacubitril 49 mg-valsartan 51 mg tablet (Entresto) 1 tab PO BID #180 tabs 04/13/22 [Rx Last Taken Unknown] Allergy/AdvReac Type Severity Reaction Status Date / Time metoprolol Allergy Severe Abdominal Verified 04/16/22 09:04 pain, poor rate control amoxicillin AdvReac Rash Verified 04/16/22 09:04 lisinopril AdvReac Dry cough Verified 04/16/22 09:04 risedronate sodium AdvReac Rash Verified 04/16/22 09:04 [From Actonel] Family History Mother Cancer breast Sister Cancer breast and malignant melanoma Diabetes Brother Arrhythmia Surgical History History of dental surgery History of hysterectomy History of implantable cardiac defibrillator (ICD) History of left heart catheterization (03/09/15) History of radiofrequency ablation procedure for cardiac arrhythmia (1999) History of vocal cord surgery Hx of LASIK Presence of permanent cardiac pacemaker (01/04/12) Social History Smoking Status: Former smoker how long ago did patient quit smokin years ago alcohol intake: never substance use type: does not use caffeine: No ROS ROS ED Constitutional Constitutional ED: Denies chills or weight loss Eyes Eyes: Denies change in vision or diplopia ENT ENT ED: Denies ear pain, rhinorrhea or sore throat Cardiovascular Cardiovascular: Denies chest pain, orthopnea, palpitations or racing heartbeat Respiratory/Chest Respiratory/Chest: Denies cough, dyspnea or orthopnea Gastrointestinal Gastrointestinal: Denies abdominal pain, diarrhea, nausea or vomiting Genitourinary Genitourinary ED: Denies dysuria, hematuria or urinary frequency Musculoskeletal Musculoskeletal: Reports other Details: See history of present illness ; Denies arthralgias, myalgias or neck pain Integumentary Denies abscess or rash Neurologic Neurologic: Denies headache(s) or weakness Psychiatric Psychiatric: Denies anxiety, depression, suicidal ideation or suicidal thoughts Endocrine Endocrinology: Denies polydipsia, polyphagia or polyuria Allergic/Immunologic Allergic/Immunologic ED: Denies mouth swelling, tongue swelling or urticaria EXAM Physical Exam Const Vital Signs: 04/16/22 09:02 Temperature 98.3 F Temperature Source Oral Pulse Rate 101 H Respiratory Rate 14 Blood Pressure 101/65 Blood Pressure Mean 77 Pulse Ox 95 Oxygen Delivery Method Room Air Positive well nourished and well developed General Appearance ED: well developed HEENT Reports normocephalic, head/scalp atraumatic and moist mucous membranes Eyes PERRL and EOMs intact bilaterally Neck no lymphadenopathy, supple and no JVD Resp normal respiratory effort and clear to auscultation bilaterally Cardio regular rate, regular rhythm and no murmurs GI normal to inspection, nondistended, normoactive bowel sounds and non-tender Palpation: soft Back/Spine no CVA tenderness and normal ROM Extremity Extremity Narrative: There is swelling around the lateral malleolus. No fibular head tenderness no fifth metatarsal pain. Medial malleolus palpates normally Achilles palpates intact General Extremety ED: Negative for edema General Extremity: Negative for edema Neuro oriented x3 and CN's II-XII intact bilaterally Sensorium / Orientation: alert Motor Exam: strength 5/5 throughout Psych mental status grossly normal Mood & Affect: Negative for depressed or tearful Skin no rashes or lesions noted and no wounds MDM MDM MDM Narrative Medical decision making narrative: My impression of the left ankle films is no acute fracture. Radiologist agrees. We can place her in an Aircast. She does not feel that she needs to go to a rehab facility. The daughter states that she is concerned she did something to her right knee in the fall. The patient tells me she does not have any symptoms in her leg that she did not have yesterday. She is able to straighten and bend the leg easily. I do not think x-rays are indicated but family wanted them so I ordered them and then they said that they were okay not getting x-rayed. So the patient will be discharged Radiography Diagnostic Testing: Clinical Impression(s) from Imaging Studies Ankle X-Ray 04/16/22 09:22 IMPRESSION: Normal x-ray examination of the ankle. Electronically Signed: Koko Marcos MD at 9:42 EST , Discharge Plan Triage Chief Complaint: Lower Extremity Injury ED Provider: Uli Shaffer Dx/Rx/DC Orders Prescriptions: No Action levothyroxine 75 mcg tablet 75 mcg PO Q OTHER DAY levothyroxine 100 mcg tablet 100 mcg PO Q OTHER DAY warfarin 1 mg tablet 1 mg PO DAILY Protocol: Dose Management Condition: Monday Dose/Route: 5 mg Instruction: 1 x 5 mg tablet Condition: Monday Dose/Route: 2.5 mg Instruction: 0.5 x 5 mg tablets Condition: Monday Dose/Route: 5 mg Instruction: 1 x 5 mg tablet Condition: Monday Dose/Route: 2.5 mg Instruction: 0.5 x 5 mg tablets Condition: Dose/Route: 5 mg Instruction: 1 x 5 mg tablet Condition: Monday Dose/Route: 5 mg Instruction: 1 x 5 mg tablet Condition: Monday Dose/Route: 5 mg Instruction: 1 x 5 mg tablet Protocol Text: Adjustment Start Date: Monday03/15/22 INR Value: 2.2 INR Date: 03/15/22 Recheck Date: 04/12/22 Label Comments: or as directed for dose adjustment PreserVision AREDS-2 [id number] nr-ivkg-pe-mg capsule 1 tab PO DAILY cholecalciferol (vitamin D3) 1,000 unit capsule 1,000 unit capsule 1,000 unit PO DAILY loratadine 10 mg tablet 10 mg PO DAILY PRN albuterol sulfate 90 mcg/actuation HFA aerosol inhaler 2 puff INHALATION Q6H PRN Adult Probiotic 3 billion cell capsule 3,000 mmu cells PO DAILY Rx Instructions: administer with a meal acetaminophen [Children's Tylenol] 160 mg tablet,chewable 160 mg PO DAILY magnesium 200 mg tablet 200 mg PO DAILY furosemide [Lasix] 40 mg tablet 80 mg PO BID Rx Instructions: 80 mg AM, 40 mg PM famotidine 40 mg tablet 40 mg PO DAILY Label Comments: TAKE 1 TABLET BY MOUTH ONCE DAILY aspirin 81 MG tablet,chewable 81 mg PO DAILY@0800 triamcinolone acetonide 1 SPRAY aerosol,spray 1 spray NS PRN PRN (Reason: Allergies) Label Comments: NEEDED (DME) Handicap Parking Placard See Rx Instructions .Route .MEDSUPPLY Qty: 1 0RF Rx Instructions: As directed verapamil 120 mg tablet extended release 120 mg PO DAILY Qty: 7 0RF warfarin 5 mg tablet 5 mg PO .COMPLEX Qty: 90 4RF Protocol: Dose Management Condition: Monday Dose/Route: 5 mg Instruction: 1 x 5 mg tablet Condition: Monday Dose/Route: 2.5 mg Instruction: 0.5 x 5 mg tablets Condition: Monday Dose/Route: 5 mg Instruction: 1 x 5 mg tablet Condition: Monday Dose/Route: 2.5 mg Instruction: 0.5 x 5 mg tablets Condition: Dose/Route: 5 mg Instruction: 1 x 5 mg tablet Condition: Monday Dose/Route: 5 mg Instruction: 1 x 5 mg tablet Condition: Monday Dose/Route: 5 mg Instruction: 1 x 5 mg tablet Protocol Text: Adjustment Start Date: Monday03/15/22 INR Value: 2.2 INR Date: 03/15/22 Recheck Date: 04/12/22 Rx Instructions: 5 mg PO every day spironolactone [Aldactone] 25 mg tablet 25 mg PO DAILY 90 Days Qty: 90 3RF Hold Instructions: low BP Entresto 49-51 mg tablet 1 tab PO BID Qty: 180 4RF Primary Care Provider: Humaira Churchill Referrals: Humaira Churchill MD [Primary Care Provider] -
== END 2022-04-16 10:27 | disposition home or self-care (01) ==
PROVIDERS: Emergency Provider Emergency Medicine; PCP Family Medicine; Visit Provider Emergency Medicine
DX: S99.912A Unspecified injury of left ankle, initial encounter (principal); I50.42 Chronic combined systolic (congestive) and diastolic (congestive) heart failure; Z87.891 Personal history of nicotine dependence; Z79.01 Long term (current) use of anticoagulants; E78.5 Hyperlipidemia, unspecified; X58.XXXA Exposure to other specified factors, initial encounter
CPT/HCPCS: 73610; 99284

== ENCOUNTER 2022-06-09 09:47 | Outpatient (RCR) | payer MEDICARE, OTHER, SELFPAY ==
[2022-04-14 02:25] VITALS: BMI 28.8
[2022-05-23 09:05] LABS: INR Fingerstick 3.5; Prothrombin Time Fingerstick 39.1 SEC (11.7-14.9)
[2022-06-09 10:01] LABS: INR Fingerstick 3.2; Prothrombin Time Fingerstick 36.6 SEC (11.7-14.9)
== END 2022-06-09 11:00 | disposition home or self-care (01) ==
LOC: LAB 09:47
PROVIDERS: Family Provider Family Medicine; PCP Family Medicine; Referring Provider Internal Medicine Cardiovascular Disease; Visit Provider Internal Medicine Cardiovascular Disease
DX: I48.11 Longstanding persistent atrial fibrillation (principal); Z79.01 Long term (current) use of anticoagulants
CPT/HCPCS: 36416; 85610

== ENCOUNTER 2022-06-21 12:38 | Outpatient (RCR) | payer MEDICARE, OTHER, SELFPAY ==
[2022-06-15 07:47] VITALS: BMI 28.8
[2022-06-21 15:40] LABS: INR Fingerstick 2.2; Prothrombin Time Fingerstick 25.6 SEC (11.7-14.9)
== END 2022-06-21 18:00 | disposition home or self-care (01) ==
LOC: MTLAB 12:38
PROVIDERS: Family Provider Family Medicine; PCP Family Medicine; Referring Provider Internal Medicine Cardiovascular Disease; Visit Provider Internal Medicine Cardiovascular Disease
DX: I48.11 Longstanding persistent atrial fibrillation (principal); Z79.01 Long term (current) use of anticoagulants
CPT/HCPCS: 36416; 85610

== ENCOUNTER 2022-08-04 09:14 | Outpatient (RCR) | payer MEDICARE, OTHER, SELFPAY ==
[2022-07-12 23:16] VITALS: BMI 28.8
[2022-07-18 10:30] LABS: INR Fingerstick 1.8; Prothrombin Time Fingerstick 21.1 SEC (11.7-14.9)
[2022-08-04 13:26] LABS: INR Fingerstick 2.1; Prothrombin Time Fingerstick 25.2 SEC (11.7-14.9)
== END 2022-08-12 20:52 | disposition home or self-care (01) ==
LOC: MTLAB 09:14
PROVIDERS: Family Provider Family Medicine; PCP Family Medicine; Referring Provider Internal Medicine Cardiovascular Disease; Visit Provider Internal Medicine Cardiovascular Disease
DX: I48.11 Longstanding persistent atrial fibrillation (principal); Z79.01 Long term (current) use of anticoagulants
CPT/HCPCS: 36416; 85610

== ENCOUNTER 2022-09-07 11:11 | Outpatient (RCR) | payer MEDICARE, OTHER, SELFPAY ==
[2022-08-12 20:53] VITALS: BMI 28.8
[2022-08-17 09:10] LABS: INR Fingerstick 2.1; Prothrombin Time Fingerstick 22.9 SEC (11.7-14.9)
[2022-09-07 11:20] LABS: INR Fingerstick 2.3; Prothrombin Time Fingerstick 25.5 SEC (11.7-14.9)
== END 2022-09-11 05:20 | disposition home or self-care (01) ==
LOC: MTLAB 11:11
PROVIDERS: Family Provider Family Medicine; PCP Family Medicine; Referring Provider Internal Medicine Cardiovascular Disease; Visit Provider Internal Medicine Cardiovascular Disease
DX: I48.11 Longstanding persistent atrial fibrillation (principal); Z79.01 Long term (current) use of anticoagulants
CPT/HCPCS: 36416; 85610

== ENCOUNTER 2022-10-24 08:55 | Outpatient (RCR) | payer MEDICARE, OTHER, SELFPAY ==
[2022-09-11 05:20] VITALS: BMI 28.8
[2022-10-24 13:57] LABS: INR Fingerstick 1.7; Prothrombin Time Fingerstick 18.4 SEC (11.7-14.9)
== END 2022-10-24 18:00 | disposition home or self-care (01) ==
LOC: MTLAB 08:55
PROVIDERS: Family Provider Family Medicine; PCP Family Medicine; Referring Provider Internal Medicine Cardiovascular Disease; Visit Provider Internal Medicine Cardiovascular Disease
DX: I48.11 Longstanding persistent atrial fibrillation (principal); Z79.01 Long term (current) use of anticoagulants
CPT/HCPCS: 36416; 85610

== ENCOUNTER → 2022-11-01 | Outpatient (CLI) | payer MEDICARE, OTHER, SELFPAY ==
[2022-11-01 12:55] LABS: Anion Gap 4 (5-15); BUN 32 mg/dL (7-18); BUN/Creat Ratio 21.8 RATIO (10-20); Calcium,Total 9.3 mg/dL (8.5-10.1); Chloride 103 mmol/L (98-107); Creatinine, Serum 1.47 mg/dL (0.55-1.02); EST Glomerular Filtration Rate 37 mL/min (>60); Est Glom Filt Rate - Afr Amer 44 mL/min (>60); Glucose 91 mg/dL (74-106); Potassium 4.8 mmol/L (3.5-5.1); Sodium Level 138 mmol/L (136-145)
[2022-11-01 12:57] LABS: BNP,B-Type NATRIURETIC PEPTIDE 549.2 pg/mL (0-100)
== END | disposition home or self-care (01) ==
LOC: LAB 11:10
PROVIDERS: PCP Family Medicine; Referring Provider Internal Medicine Cardiovascular Disease; Visit Provider Internal Medicine Cardiovascular Disease
DX: R06.00 Dyspnea, unspecified (principal); I50.20 Unspecified systolic (congestive) heart failure; I42.2 Other hypertrophic cardiomyopathy
CPT/HCPCS: 36415; 80048; 83880

== ENCOUNTER 2022-11-18 08:47 | Outpatient (RCR) | payer MEDICARE, OTHER, SELFPAY ==
[2022-11-12 02:32] VITALS: BMI 28.8
[2022-11-21 15:44] LABS: Prothrombin Time Fingerstick 21.7 SEC (11.7-14.9)
== END 2022-12-12 18:00 | disposition home or self-care (01) ==
LOC: MTLAB 08:47
PROVIDERS: Family Provider Family Medicine; PCP Family Medicine; Referring Provider Internal Medicine Cardiovascular Disease; Visit Provider Internal Medicine Cardiovascular Disease
DX: I48.11 Longstanding persistent atrial fibrillation (principal); Z79.01 Long term (current) use of anticoagulants
CPT/HCPCS: 36416; 85610

== ENCOUNTER 2022-12-28 09:57 | Outpatient (RCR) | payer MEDICARE, OTHER, SELFPAY ==
[2022-12-13 02:20] VITALS: BMI 28.8
[2022-12-20 10:47] LABS: INR Fingerstick 1.5; Prothrombin Time Fingerstick 16.9 SEC (11.7-14.9)
[2022-12-28 13:09] LABS: INR Fingerstick 1.6; Prothrombin Time Fingerstick 17.8 SEC (11.7-14.9)
== END 2022-12-28 18:00 | disposition home or self-care (01) ==
LOC: MTLAB 09:57
PROVIDERS: Family Provider Family Medicine; PCP Family Medicine; Referring Provider Internal Medicine Cardiovascular Disease; Visit Provider Internal Medicine Cardiovascular Disease
DX: I48.11 Longstanding persistent atrial fibrillation (principal); Z79.01 Long term (current) use of anticoagulants
CPT/HCPCS: 36416; 85610

== ENCOUNTER 2023-02-09 09:09 | Outpatient (RCR) | payer MEDICARE, OTHER, SELFPAY ==
[2023-01-13 01:59] VITALS: BMI 28.8
[2023-01-20 09:03] LABS: INR Fingerstick 3.4; Prothrombin Time Fingerstick 36.3 SEC (11.7-14.9)
[2023-02-17 11:00] LABS: INR Fingerstick 3.1; Prothrombin Time Fingerstick 33.6 SEC (11.7-14.9)
== END 2023-02-09 18:00 | disposition home or self-care (01) ==
LOC: MTLAB 09:09
PROVIDERS: Family Provider Family Medicine; PCP Family Medicine; Referring Provider Internal Medicine Cardiovascular Disease; Visit Provider Internal Medicine Cardiovascular Disease
DX: I48.11 Longstanding persistent atrial fibrillation (principal); Z79.01 Long term (current) use of anticoagulants
CPT/HCPCS: 36416; 85610

== ENCOUNTER 2023-02-28 08:59 | Outpatient (RCR) | payer MEDICARE, OTHER, SELFPAY ==
[2023-02-12 04:59] VITALS: BMI 28.8
[2023-02-28 09:20] LABS: INR Fingerstick 2.2; Prothrombin Time Fingerstick 24.4 SEC (11.7-14.9)
== END 2023-02-28 18:00 | disposition home or self-care (01) ==
LOC: MTLAB 08:59
PROVIDERS: Family Provider Family Medicine; PCP Family Medicine; Referring Provider Internal Medicine Cardiovascular Disease; Visit Provider Internal Medicine Cardiovascular Disease
DX: I48.11 Longstanding persistent atrial fibrillation (principal); Z79.01 Long term (current) use of anticoagulants
CPT/HCPCS: 36416; 85610

== ENCOUNTER 2023-04-19 07:31 | Outpatient (RCR) | payer MEDICARE, OTHER, SELFPAY ==
[2023-03-14 23:08] VITALS: BMI 28.8
[2023-04-19 10:59] LABS: International Normalized Ratio 1.6; Prothrombin Time (Protime)PT. 19.6 SECONDS (11.7-14.9)
[2023-04-19 11:54] LABS: AST(SGOT) 24 U/L (15-37); Alanine Aminotransfer ALT/SGPT 20 U/L (13-56); Albumin, Serum 3.7 g/dL (3.2-5.0); Alkaline Phosphatase 78 U/L (45-117); Bilirubin, Direct 0.18 mg/dL (0.00-0.30); Cholesterol 161 mg/dL (200); Globulin 3.4 g/dL (2.2-4.2); High Density Lipoprotein 66 mg/dL; Protein, Total 7.1 g/dL (6.4-8.2); Thyroid Stim Hormone (TSH) 0.88 uIU/mL (0.358-3.74); Triglycerides 71 mg/dL; Very Low Density Lipoprotein 14 mg/dL (5-40)
== END 2023-05-14 18:00 | disposition home or self-care (01) ==
LOC: MTLAB 07:31
PROVIDERS: Family Provider Family Medicine; PCP Family Medicine; Referring Provider Internal Medicine Cardiovascular Disease; Visit Provider Internal Medicine Cardiovascular Disease
DX: I48.11 Longstanding persistent atrial fibrillation (principal); Z79.01 Long term (current) use of anticoagulants; E03.9 Hypothyroidism, unspecified; E78.00 Pure hypercholesterolemia, unspecified
CPT/HCPCS: 36415; 80061; 80076; 84436; 84443; 85610

== ENCOUNTER 2023-06-08 08:54 | Outpatient (RCR) | payer MEDICARE, OTHER, SELFPAY ==
[2023-05-14 23:30] VITALS: BMI 28.8
[2023-05-30 09:23] LABS: INR Fingerstick 1.6; Prothrombin Time Fingerstick 17.4 SEC (11.7-14.9)
[2023-06-08 09:12] LABS: INR Fingerstick 2.8; Prothrombin Time Fingerstick 30.5 SEC (11.7-14.9)
== END 2023-06-08 18:00 | disposition home or self-care (01) ==
LOC: MTLAB 08:54
PROVIDERS: Family Provider Family Medicine; PCP Family Medicine; Referring Provider Internal Medicine Cardiovascular Disease; Visit Provider Internal Medicine Cardiovascular Disease
DX: I48.11 Longstanding persistent atrial fibrillation (principal); Z79.01 Long term (current) use of anticoagulants
CPT/HCPCS: 36416; 85610

== ENCOUNTER 2023-07-19 09:04 | Outpatient (RCR) | payer MEDICARE, OTHER, SELFPAY ==
[2023-06-14 23:38] VITALS: BMI 28.8
[2023-07-19 09:18] LABS: INR Fingerstick 2.4; Prothrombin Time Fingerstick 26.2 SEC (11.7-14.9)
== END 2023-08-13 02:04 | disposition home or self-care (01) ==
LOC: MTLAB 09:04
PROVIDERS: Family Provider Family Medicine; PCP Family Medicine; Referring Provider Internal Medicine Cardiovascular Disease; Visit Provider Internal Medicine Cardiovascular Disease
DX: I48.11 Longstanding persistent atrial fibrillation (principal); Z79.01 Long term (current) use of anticoagulants
CPT/HCPCS: 36416; 85610

== ENCOUNTER → 2023-08-16 | Outpatient (CLI) | payer MEDICARE, OTHER, SELFPAY ==
--- NOTE | 2023-08-16 10:00 | BI_ITS ---
MAMMOGRAPHY - BILATERAL SCREENING REASON FOR EXAM: Female, 77 years old. Routine annual screening examination. PERTINENT HISTORY: Sister with breast cancer. Mother with breast cancer. TECHNIQUE: Digital bilateral breast jarad (3D mammographic acquisition) in the CC and MLO projections. 2-D mediolateral oblique (MLO) and craniocaudad (CC) views of both breasts were obtained. CAD: Full Field Digital Mammography with Computer Added Detection was performed. COMPARISON: Comparison is made with prior study January 08, 2020. FINDINGS: Breast Composition: There are scattered areas of fibroglandular density. There are no dominant masses or suspicious calcifications. No other significant abnormalities are identified. There has been no significant change since the prior study. BI/SCRN MAMM (CAD)W/JARAD BILAT IMPRESSION: Stable bilateral screening mammogram. Yearly follow-up mammogram recommended. (A) ASSESSMENT CATEGORY: BIRADS Category 1: Negative. A letter regarding these results will be sent to the patient by the facility within 30 days. Approximately 10% of breast cancers are not detected by mammography. A normal mammogram should not delay biopsy of a clinically suspicious abnormality. [id number] Electronically Signed: Renny Obrien MD at 11:51 EDT ,
== END | disposition home or self-care (01) ==
LOC: OPBI 10:00
PROVIDERS: PCP Family Medicine; Referring Provider Family Medicine; Visit Provider Family Medicine
DX: Z12.31 Encounter for screening mammogram for malignant neoplasm of breast (principal); Z80.3 Family history of malignant neoplasm of breast
CPT/HCPCS: 77063; 77067

== ENCOUNTER 2023-09-22 08:54 | Outpatient (RCR) | payer MEDICARE, OTHER, SELFPAY ==
[2023-08-13 02:05] VITALS: BMI 28.8
[2023-09-29 16:51] LABS: INR Fingerstick 2.4; Prothrombin Time Fingerstick 26.2 SEC (11.7-14.9)
== END 2023-10-13 18:00 | disposition home or self-care (01) ==
LOC: MTLAB 08:54
PROVIDERS: Family Provider Family Medicine; PCP Family Medicine; Referring Provider Internal Medicine Cardiovascular Disease; Visit Provider Internal Medicine Cardiovascular Disease
DX: I48.11 Longstanding persistent atrial fibrillation (principal); Z79.01 Long term (current) use of anticoagulants
CPT/HCPCS: 36416; 85610

== ENCOUNTER 2023-10-31 09:23 | Outpatient (RCR) | payer MEDICARE, OTHER, SELFPAY ==
[2023-10-16 08:23] VITALS: BMI 28.8
[2023-10-31 09:32] LABS: Prothrombin Time Fingerstick 21.3 SEC (11.7-14.9)
== END 2023-10-31 18:00 | disposition home or self-care (01) ==
LOC: MTLAB 09:23
PROVIDERS: Family Provider Family Medicine; PCP Family Medicine; Referring Provider Internal Medicine Cardiovascular Disease; Visit Provider Internal Medicine Cardiovascular Disease
DX: I48.11 Longstanding persistent atrial fibrillation (principal); Z79.01 Long term (current) use of anticoagulants
CPT/HCPCS: 36416; 85610

== ENCOUNTER 2023-12-05 09:12 | Outpatient (RCR) | payer MEDICARE, OTHER, SELFPAY ==
[2023-11-13 04:22] VITALS: BMI 28.8
[2023-12-05 09:21] LABS: INR Fingerstick 1.8; Prothrombin Time Fingerstick 19.5 SEC (11.7-14.9)
== END 2023-12-13 18:00 | disposition home or self-care (01) ==
LOC: MTLAB 09:12
PROVIDERS: Family Provider Family Medicine; PCP Family Medicine; Referring Provider Internal Medicine Cardiovascular Disease; Visit Provider Internal Medicine Cardiovascular Disease
DX: I48.11 Longstanding persistent atrial fibrillation (principal); Z79.01 Long term (current) use of anticoagulants
CPT/HCPCS: 36416; 85610

== ENCOUNTER 2023-12-22 08:51 | Outpatient (RCR) | payer MEDICARE, OTHER, SELFPAY ==
[2023-12-13 23:13] VITALS: BMI 28.8
[2023-12-22 14:43] LABS: INR Fingerstick 2.8; Prothrombin Time Fingerstick 28.1 SEC (11.7-14.9)
== END 2023-12-22 18:00 | disposition home or self-care (01) ==
LOC: MTLAB 08:51
PROVIDERS: Family Provider Family Medicine; PCP Family Medicine; Referring Provider Internal Medicine Cardiovascular Disease; Visit Provider Internal Medicine Cardiovascular Disease
DX: I48.11 Longstanding persistent atrial fibrillation (principal); Z79.01 Long term (current) use of anticoagulants
CPT/HCPCS: 36416; 85610

== ENCOUNTER → 2024-01-22 | Day surgery (SDC) | payer MEDICARE, OTHER, SELFPAY ==
[2024-01-16 14:39] LABS: Bacteria 0 SEEN /hpf (None Seen); Mucous, Urine 0 SEEN /hpf (<or=2+); Squamous Epithelial Cells - UA 0 SEEN /hpf (5-10); White Blood Cells 0 SEEN /hpf (0-5)
--- NOTE | 2024-01-16 15:15 | RAD_ITS ---
STUDY: X-RAY CHEST REASON FOR EXAM: Female, 78 years old. For PPM generator change. TECHNIQUE: Frontal and lateral views of the chest. COMPARISON: January 22, 2015 FINDINGS: Mild hyperinflation with diffuse mild interstitial prominence, unchanged. There is no demonstrated pleural abnormality. Stable cardiomegaly with dual lead cardiac pacer. Normal mediastinum and sami. Normal visualized pulmonary arteries. Aortic tortuosity with calcification unchanged. Thoracic osteopenia with diffuse moderate spondylosis and increased kyphosis, unchanged. Normal visualized ribs, clavicles, and shoulders. No abnormality of the visualized soft tissue structures of the upper abdomen. RAD/Chest PA and Lateral IMPRESSION: Stable chest with no acute or active cardiopulmonary disease. Electronically Signed: Carroll Tanner MD at 15:32 EDT ,
[2024-01-16 15:53] LABS: Color, Urine Yellow (Yellow); Glucose, Dipstick Normal (Normal); Ketone-Dipstick Negative (Negative); Leukocyte Esterase-Dipstick Negative /ul (Negative); Nitrite-Dipstick Negative (Negative); Occult Blood-Urine 10 /ul (Negative); Protein-Dipstick Negative (Negative); Urine Bilirubin Dipstick Negative (Negative); Urine Clarity Clear (Clear); Urine Urobilinogen Normal (Normal)
[2024-01-16 15:55] LABS: Hematocrit 37.2 % (37-47); Hemoglobin 11.3 g/dL (12.0-15.0); Mean Corp Hgb Conc 30.4 g/dL (32-36); Mean Corpuscular Hgb 28.2 pg (27.0-32.0); Mean Corpuscular Volume 92.8 fL (81-99); Mean Platelet Vol. 11.3 fl (6.2-12.0); Platelet Count 208 K/mm3 (150-450); RBC Distribution Width CV 14.6 % (11.6-14.6); RBC Distribution Width SD 49.8 fl (35.1-43.9); Red Blood Count 4.01 M/mm3 (4.2-5.4); White Blood Count 4.9 K/mm3 (4.4-11.0)
[2024-01-16 15:59] LABS: International Normalized Ratio 2.2; Prothrombin Time (Protime)PT. 24.2 SECONDS (11.7-14.9)
[2024-01-16 16:00] LABS: Red Blood Cells-Urine 0-5 SEEN /hpf (0-5)
[2024-01-16 16:22] LABS: Anion Gap 4 (5-15); BUN 40 mg/dL (7-18); BUN/Creat Ratio 24.2 RATIO (10-20); Calcium,Total 9.4 mg/dL (8.5-10.1); Chloride 103 mmol/L (98-107); Creatinine, Serum 1.65 mg/dL (0.55-1.02); EST Glomerular Filtration Rate 32 mL/min (>60); Est Glom Filt Rate - Afr Amer 39 mL/min (>60); Glucose 87 mg/dL (74-106); Sodium Level 137 mmol/L (136-145)
[2024-01-19 08:39] VITALS: BMI 26.9
[2024-01-22 11:18] LABS: INR Fingerstick 1.9; Prothrombin Time Fingerstick 19.8 SEC (11.7-14.9)
--- NOTE | 2024-01-22 13:06 | CL.IE_ITS ---
Patient: JAUN BUCKNER Study Date: 01/22/2024 Performing: Jamie Christina MD : 1945 Age: 78 Gender: female PROCEDURES PERFORMED [id number])BATTERY REMOVAL+REPLACEMENT PACER-DUAL LEAD INDICATIONS End-of-life replacement indicator Sinoatrial node dysfunction/Sick sinus syndrome PROCEDURE DETAILS The patient was brought to the Catheterization Lab in the postabsorptive nonsedated state. Informed consent was obtained prior to the procedure. Local anesthetic was given subcutaneously to the left subclavian region with Lidocaine 2%. Incision was made to the left subclavicular area. Local anesthetic was given subcutaneously to the left subclavian region with Lidocaine 2%. PPM generator was removed. PPM generator was attached to the lead(s) and inserted into the pocket. Device pocket was irrigated with antibiotic. PPM generator was then interrogated by the etl programmer. The PPM generator was sutured in place with 2-0 Vicryl. Subcutaneous closure was completed with 4-0 Vicryl. Instrument, sponge, and needle counts were noted to be normal. The patient tolerated the procedure well. Estimated Blood Loss: < 10 mls IMPLANTED / EX-PLANTED DEVICES EXPLANTED DEVICE(S): PPM Generator - Production Control Technologist: [employer]tronic, Model # [id number] , Serial # [id number] IMPLANTED DEVICE(S): PPM Generator - Production Control Technologist: [employer], Model # [id number] XT DR , Serial # [id number] DEVICE PARAMETERS DEVICE PARAMETERS: Mode- VVIR Lower rate- 60 Upper rate- 130 CONCLUSIONS / RECOMMENDATIONS Device Conclusions: Successful implantation of a dual chamber pacemaker battery change and replacement Device Recommendations: Follow up with Primary Care Physician PROCEDURE MEDICATIONS Versed 1 mg IV Fentanyl 50 mcg IV Oxygen: 2 L/min via nasal cannula Antibiotic given in appropriate timeframe. Clindamycin 900 mg IV 01/22/2024 12:15:43 Signed By Jamie Christina MD On 01/22/2024 13:06:17 Jamie Christina MD
== END | disposition home or self-care (01) ==
PROVIDERS: PCP Family Medicine; Referring Provider Internal Medicine Cardiovascular Disease; Visit Provider Internal Medicine Cardiovascular Disease
DX: I49.5 Sick sinus syndrome (principal); I50.42 Chronic combined systolic (congestive) and diastolic (congestive) heart failure; I48.11 Longstanding persistent atrial fibrillation; I42.2 Other hypertrophic cardiomyopathy; Z97.8 Presence of other specified devices; Z95.0 Presence of cardiac pacemaker; Z87.891 Personal history of nicotine dependence
CPT/HCPCS: 33228; 36415; 36416; 71046; 80048; 81001; 85027; 85610; 99152; 99153; J7040; J7050

== ENCOUNTER 2024-02-12 09:20 | Outpatient (RCR) | payer MEDICARE, OTHER, SELFPAY ==
[2024-01-13 21:09] VITALS: BMI 28.8
[2024-02-12 09:30] LABS: INR Fingerstick 2.4; Prothrombin Time Fingerstick 24.8 SEC (11.7-14.9)
== END 2024-02-12 18:00 | disposition home or self-care (01) ==
LOC: MTLAB 09:20
PROVIDERS: Family Provider Family Medicine; PCP Family Medicine; Referring Provider Internal Medicine Cardiovascular Disease; Visit Provider Internal Medicine Cardiovascular Disease
DX: I48.11 Longstanding persistent atrial fibrillation (principal); Z79.01 Long term (current) use of anticoagulants
CPT/HCPCS: 36416; 85610

== ENCOUNTER 2024-03-14 09:00 | Outpatient (RCR) | payer MEDICARE, OTHER, SELFPAY ==
[2024-02-13 04:50] VITALS: BMI 28.8
[2024-03-14 09:09] LABS: INR Fingerstick 3.5; Prothrombin Time Fingerstick 34.3 SEC (11.7-14.9)
== END 2024-03-14 18:00 | disposition home or self-care (01) ==
LOC: MTLAB 09:00
PROVIDERS: Family Provider Family Medicine; PCP Family Medicine; Referring Provider Internal Medicine Cardiovascular Disease; Visit Provider Internal Medicine Cardiovascular Disease
DX: I48.11 Longstanding persistent atrial fibrillation (principal); Z79.01 Long term (current) use of anticoagulants
CPT/HCPCS: 36416; 85610

== ENCOUNTER 2024-03-14 09:27 | Emergency (ER) | payer MEDICARE, OTHER, SELFPAY ==
[2024-03-14 09:29] VITALS: BP 102/61; PULSE 61; RESP 16; TEMP 36.4; O2SAT 100; BMI 26.9
--- NOTE | 2024-03-14 10:45 | EX.ED.DYSGE1 ---
HPI History of Present Illness Chief Complaint: Nosebleed Informant: patient Narrative Narrative: Right side epistaxis started at 2 AM. States been sneezing. Denies digital manipulation. She was able to stop the bleeding till 4 AM rebled, she is able to stop it prior to arrival. Persistent A-fib on warfarin. She had her INR checked prior to coming emergency department it was noted to be 3.5. She was referred here by her PCP. She is seen ENT Dr. Slaughter for vocal cord paralysis. Denies swallowing any blood. Denies trauma. PFSH PFSH Medical History Chronic combined systolic and diastolic CHF (congestive heart failure) Hypertrophic cardiomyopathy 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 Longstanding persistent atrial fibrillation Hypothyroidism Secondary pulmonary arterial hypertension Vocal cord paralysis, unilateral complete Sick sinus syndrome Hyperlipidemia Left ventricular diastolic dysfunction FH: sudden cardiac (SCD) Home Medications ?Medication ?Instructions ?Recorded ?Last Taken ?Type aspirin 81 mg chewable tablet 81 mg PO DAILY@0800 01/22/15 01/30/17 History triamcinolone acetonide 55 mcg 1 spray NS PRN PRN Allergies 09/15/17 Unknown History nasal spray aerosol cholecalciferol (vitamin D3) 25 1,000 unit PO DAILY 07/24/18 Unknown History mcg (1,000 unit) capsule levothyroxine 100 mcg tablet 100 mcg PO Q OTHER DAY 07/24/18 Unknown History levothyroxine 75 mcg tablet 75 mcg PO Q OTHER DAY 07/24/18 01/22/24 History loratadine 10 mg tablet 10 mg PO DAILY PRN allergic 07/24/18 Unknown History symptoms vit C 250 mg-vit E 90 mg-zinc 40 1 tab PO DAILY 07/24/18 Unknown History mg-copper 1 [id number]-[id number] capsule (PreserVision AREDS-2) warfarin 1 mg tablet 1 mg PO DAILY 07/24/18 01/17/24 History acetaminophen 160 mg chewable 160 mg PO DAILY 10/14/20 Unknown History tablet (Children's Tylenol) albuterol sulfate 90 mcg/actuation 2 puff inhalation Q6H PRN 10/14/20 Unknown History aerosol inhaler shortness of breath or wheezing lactobacillus combination no.8 3 3,000 mmu cells PO DAILY 10/14/20 Unknown History billion cell capsule (Adult Probiotic) magnesium 200 mg tablet 200 mg PO DAILY 09/21/21 Unknown History famotidine 40 mg tablet 40 mg PO .COMPLEX 07/04/22 Unknown History yaxl-ccayy-rd0-crq-ndp-uzfn-sterols 1 cap PO DAILY 11/01/22 Unknown History 375 mg-100 mg-36 mg-54 mg capsule (Glucosamine Chondroitin PLUS) verapamil 120 mg tablet,extended 120 mg PO DAILY #90 tabs 06/08/23 01/22/24 Rx release furosemide 40 mg tablet 40 mg PO .COMPLEX #270 tabs 06/19/23 Unknown Rx Handicap Parking Placard #1 ea 06/26/23 Unknown Rx spironolactone 50 mg tablet 50 mg PO DAILY #90 TABLETS 10/16/23 01/22/24 Rx warfarin 5 mg tablet 5 mg PO .COMPLEX #90 tabs 12/11/23 01/17/24 Rx sacubitril 49 mg-valsartan 51 mg 1 tab PO BID #180 tabs 03/11/24 Unknown Rx tablet (Entresto) Allergy/AdvReac Type Severity Reaction Status Date / Time metoprolol Allergy Severe Abdominal Verified 03/14/24 09:29 pain, poor rate control amoxicillin AdvReac Rash Verified 03/14/24 09:29 lisinopril AdvReac Dry cough Verified 03/14/24 09:29 risedronate sodium (From AdvReac Rash Verified 03/14/24 09:29 Actonel) Family History Mother Cancer breast Sister Cancer breast and malignant melanoma Diabetes Brother Arrhythmia Surgical History History of colonoscopy History of radiofrequency ablation procedure for cardiac arrhythmia (1999) History of hysterectomy Presence of permanent cardiac pacemaker (01/04/12) History of left heart catheterization (03/09/15) History of implantable cardiac defibrillator (ICD) History of dental surgery Hx of LASIK History of vocal cord surgery Social History Smoking Status: Former smoker how long ago did patient quit smokin years ago alcohol intake: never substance use type: does not use caffeine: No ROS ROS ED Constitutional Constitutional ED: Denies chills, fever(s) or sweats Eyes Eyes: Denies change in vision ENT ENT ED: Reports other Details: Right side epistaxis ; Denies dysphagia or sore throat Cardiovascular Cardiovascular: Denies chest pain, leg edema, palpitations or racing heartbeat Respiratory/Chest Respiratory/Chest: Denies cough, dyspnea or dyspnea on exertion Gastrointestinal Gastrointestinal: Denies abdominal pain, diarrhea, nausea or vomiting Genitourinary Genitourinary ED: Denies dysuria, hematuria or urinary frequency Musculoskeletal Musculoskeletal: Denies back pain, extremity pain or neck pain Integumentary Denies rash or wounds Neurologic Neurologic: Denies headache(s), paresthesias or weakness EXAM Physical Exam Const Vital Signs: 03/14/24 09:29 Temperature 97.6 F L Temperature Source Oral Pulse Rate 61 Respiratory Rate 16 Blood Pressure 102/61 Blood Pressure Mean 74 Pulse Ox 100 Oxygen Delivery Method Room Air Positive well nourished and well developed General Appearance ED: well developed and NAD HEENT Reports moist mucous membranes HEENT Narrative: Nasal exam bilaterally no abrasions of the septum, no ulcerations, turbinates were normal. No st stigmata of bleeding noted anywhere in both naris. Posterior pharynx was normal. normocephalic and atraumatic Eyes EOMs intact bilaterally and conjunctivae normal General Eye ED: Yes normal appearance of both eyes Neck no lymphadenopathy and supple General: Negative for tenderness Chest Wall Chest: Negative for tenderness Resp normal respiratory effort and normal air movement Effort and Inspection: symmetric chest movement; Negative for respiratory distress Cardio regular rate, regular rhythm and no murmurs Peripheral Pulses: pulses 2+ throughout GI normal to inspection, nondistended, normoactive bowel sounds and non-tender Palpation: Negative for guarding or rebound tenderness present Back/Spine no CVA tenderness and no thoracic nor lumbar tenderness Extremity normal to inspection General Extremety ED: Negative for edema or tenderness General Extremity: Negative for edema Neuro oriented x3 and no sensory deficits noted Sensorium / Orientation: awake and alert Skin no rashes or lesions noted and no wounds MDM MDM MDM Narrative Medical decision making narrative: Interventions / MDM: Differential diagnosis: Epistaxis, resolved, chronic anticoagulation therapy Diagnosis considered but do not suspect: N/A My EKG interpretation: N/A Imaging independently reviewed and interpreted by myself: N/A External documents reviewed: N/A Test considered but not ordered:N/A ED course: Patient is currently no active bleeding I cannot appreciate any areas where could have bled from. Could have been more posterior that stopped. INR was 3.5 today reported by the patient. I discussed humidifier at home and avoiding blowing her nose. She was provided nasal clips to use if it reoccurs. If unable control she will return to the ED otherwise she will follow-up with her ENT doctor. All questions were answered. Re-evaluation: stable Disposition discussed with patient/family/significant other: Patient Case discussed with consulting clinician: N/A This note was generated with [employer] dictation software. It may contain incorrect words, spelling, and punctuation that were not noted in checking the note before signing. Discharge Plan Triage Chief Complaint: Nosebleed ED Provider: Bahman Glover Dx/Rx/DC Orders Clinical Impression: Epistaxis, Chronic anticoagulation Instructions: ED Epistaxis (Adult) Prescriptions: No Action levothyroxine 75 mcg tablet 75 mcg PO Q OTHER DAY levothyroxine 100 mcg tablet 100 mcg PO Q OTHER DAY warfarin 1 mg tablet 1 mg PO DAILY Protocol: Dose Management Condition: Monday Dose/Route: 2.5 mg Instruction: 0.5 x 5 mg tablets Condition: Monday Dose/Route: 5 mg Instruction: 1 x 5 mg tablet Condition: Monday Dose/Route: 5 mg Instruction: 1 x 5 mg tablet Condition: Monday Dose/Route: 5 mg Instruction: 1 x 5 mg tablet Condition: Dose/Route: 0 mg Instruction: 0 tablets Condition: Monday Dose/Route: 5 mg Instruction: 1 x 5 mg tablet Condition: Monday Dose/Route: 2.5 mg Instruction: 0.5 x 5 mg tablets Protocol Text: Adjustment Start Date: 03/14/24 INR Value: 3.5 INR Date: 03/14/24 Recheck Date: 03/21/24 Patient Comments: or as directed for dose adjustment PreserVision AREDS-2 [id number] oj-qkwx-pq-mg capsule 1 tab PO DAILY cholecalciferol (vitamin D3) 1,000 unit capsule 1,000 unit PO DAILY loratadine 10 mg tablet 10 mg PO DAILY PRN (Reason: allergic symptoms) albuterol sulfate 90 mcg/actuation HFA aerosol inhaler 2 puff INHALATION Q6H PRN (Reason: shortness of breath or wheezing) Adult Probiotic 3 billion cell capsule 3,000 mmu cells PO DAILY Rx Instructions: administer with a meal acetaminophen [Children's Tylenol] 160 mg tablet,chewable 160 mg PO DAILY magnesium 200 mg tablet 200 mg PO DAILY Glucosamine Chondroitin PLUS [id number] mg capsule 1 cap PO DAILY verapamil 120 mg tablet extended release 120 mg PO DAILY Qty: 90 3RF aspirin 81 MG tablet,chewable 81 mg PO DAILY@0800 triamcinolone acetonide 1 SPRAY aerosol,spray 1 spray NS PRN PRN (Reason: Allergies) Patient Comments: NEEDED famotidine 40 mg tablet 40 mg PO .COMPLEX Patient Comments: TAKE 1 TABLET BY MOUTH ONCE DAILY Rx Instructions: 40 mg orally 2 tablets 80 mg) in am and 1 tablet (40 mg) in the afternoon; furosemide 40 mg tablet 40 mg PO .COMPLEX Qty: 270 3RF Rx Instructions: 40 mg orally 2 tablets (80 mg) in the am and 1 tablet (40 mg) in the pm; (DME) Handicap Parking Placard See Rx Instructions .Route .MEDSUPPLY Qty: 1 0RF Rx Instructions: As directed spironolactone 50 mg tablet 50 mg PO DAILY Qty: 90 3RF warfarin 5 mg tablet 5 mg PO .COMPLEX Qty: 90 4RF Protocol: Dose Management Condition: Monday Dose/Route: 2.5 mg Instruction: 0.5 x 5 mg tablets Condition: Monday Dose/Route: 5 mg Instruction: 1 x 5 mg tablet Condition: Monday Dose/Route: 5 mg Instruction: 1 x 5 mg tablet Condition: Monday Dose/Route: 5 mg Instruction: 1 x 5 mg tablet Condition: Dose/Route: 0 mg Instruction: 0 tablets Condition: Monday Dose/Route: 5 mg Instruction: 1 x 5 mg tablet Condition: Monday Dose/Route: 2.5 mg Instruction: 0.5 x 5 mg tablets Protocol Text: Adjustment Start Date: 03/14/24 INR Value: 3.5 INR Date: 03/14/24 Recheck Date: 03/21/24 Rx Instructions: 5 mg PO every day Entresto 49-51 mg tablet 1 tab PO BID Qty: 180 3RF Primary Care Provider: Humaira Churchill Referrals: Humaira Churchill MD [Primary Care Provider] - Dieter Slaughter MD [Med Staff - Active Staff] - 3-5 Days Activity Restrictions/Additional Instructions: No active bleeding or visualized areas of bleeding at this time. If rebleeds use the nasal clips leave on for 30 minutes. Uncontrolled return to ED. Avoid blowing and nose, use a [employer] fire. Follow-up with her ENT doctor. Print Language: Tajik Disposition Disposition: Home, Self Care Discharge Date/Time: 03/14/24 11:05
== END 2024-03-14 11:05 | disposition home or self-care (01) ==
PROVIDERS: Emergency Provider Emergency Medicine; PCP Family Medicine; Visit Provider Emergency Medicine
DX: R04.0 Epistaxis (principal); I50.42 Chronic combined systolic (congestive) and diastolic (congestive) heart failure; I48.19 Other persistent atrial fibrillation; I42.2 Other hypertrophic cardiomyopathy; Z79.01 Long term (current) use of anticoagulants; Z87.891 Personal history of nicotine dependence; J38.00 Paralysis of vocal cords and larynx, unspecified; E78.5 Hyperlipidemia, unspecified; E03.9 Hypothyroidism, unspecified; Z79.82 Long term (current) use of aspirin; Z90.5 Acquired absence of kidney
CPT/HCPCS: 99282

== ENCOUNTER 2024-03-26 07:55 | Outpatient (RCR) | payer MEDICARE, OTHER, SELFPAY ==
[2024-03-14 21:07] VITALS: BMI 28.8
[2024-03-26 09:34] LABS: International Normalized Ratio 2.4; Prothrombin Time (Protime)PT. 25.8 SECONDS (11.7-14.9)
== END 2024-04-13 18:00 | disposition home or self-care (01) ==
LOC: LAB 07:55
PROVIDERS: Family Provider Family Medicine; PCP Family Medicine; Referring Provider Internal Medicine Cardiovascular Disease; Visit Provider Internal Medicine Cardiovascular Disease
DX: I48.11 Longstanding persistent atrial fibrillation (principal); Z79.01 Long term (current) use of anticoagulants
CPT/HCPCS: 36415; 85610

== ENCOUNTER → 2024-03-26 | Outpatient (CLI) | payer MEDICARE, OTHER, SELFPAY ==
--- NOTE | 2024-03-26 08:00 | CT_ITS ---
EXAM: CT RIGHT UPPER EXTREMITY WITHOUT INTRAVENOUS CONTRAST, SHOULDER CLINICAL INDICATION: shoulder pain, ostearthritis suspected TECHNIQUE: Helically acquired images were obtained of the right shoulder without intravenous contrast. 2-D reformats were performed by the technologist. CTDIvol = ( 22.37 ) mGy, DLP = ( 553.25 ) mGycm This CT exam was performed using one or more of the following dose reduction techniques: automated exposure control, adjustment of the mA and/or kV according to patient size, and/or use of iterative reconstruction technique. COMPARISON: No relevant prior studies available. FINDINGS: BONES/JOINTS: Relatively mild degenerative changes at the acromioclavicular and glenohumeral joints for age. Chondrocalcinosis involving the articular cartilage of the glenohumeral joint. No acute fracture. No subluxation. Normal alignment. SOFT TISSUES: Calcific tendinitis of the supraspinatus tendon. No soft tissue swelling or gas. No radiopaque foreign body. LUNG APICES: Mild pleural-parenchymal scarring at the right apex. HEART: Cardiomegaly, incompletely imaged on this study. CT/Extremity Upper without Contra IMPRESSION: 1. Calcific tendinitis of the supraspinatus tendon. 2. Chondrocalcinosis involving the articular cartilage of the glenohumeral joint. 3. Relatively mild degenerative changes at the acromioclavicular and glenohumeral joints for age. Electronically Signed: Kb Fowler MD at 12:32 EST ,
== END | disposition home or self-care (01) ==
LOC: CT 07:58
PROVIDERS: PCP Family Medicine; Referring Provider Student in an Organized Health Care Education/Training Program; Visit Provider Student in an Organized Health Care Education/Training Program
DX: M11.811 Other specified crystal arthropathies, right shoulder (principal); M75.41 Impingement syndrome of right shoulder; M19.011 Primary osteoarthritis, right shoulder
CPT/HCPCS: 73200

== ENCOUNTER → 2024-04-12 | Outpatient (CLI) | payer MEDICARE, OTHER, SELFPAY ==
--- NOTE | 2024-04-12 10:52 | ECHOD_ITS ---
Reason For Study: CAD/ASHD, Pre Op Procedure This was a 2D Doppler, Color Flow transthoracic echocardiogram. The study was technically difficult. Exam performed in department. Left Ventricle Normal LV size. The estimated ejection fraction is 40 %. There is moderate global hypokinesis of the left ventricle. [place] : Akinetic. Anterior [place] : Hypokinetic. Mid-Anterior : Mildly hypokinetic. Right Ventricle Normal RV size. Normal systolic function. Atria The left atrium is severely enlarged. The right atrium is mildly enlarged. Mitral Valve Normal mitral valve. Tricuspid Valve Normal tricuspid valve. Mild to moderate (1-2+) tricuspid valve insufficiency. Pulmonary artery systolic pressure is 48 mmHg. Aortic Valve Trisinus/trileaflet aortic valve. Mild (1+) eccentric aortic valve insufficiency. Pulmonic Valve Normal pulmonic valve. Mild (1+) pulmonic valve insufficiency. Great Vessels Mildly dilated aortic root. No collapse of the inferior vena cava. Pericardium/Pleural No pericardial effusion. MMode/2D Measurements & Calculations LVIDd: 5.0 cm IVSd: 1.6 cm Ao root diam: 3.8 cm LVIDs: 4.1 cm LVPWd: 0.97 cm RVDd: 3.3 cm FS: 16.4 % asc Aorta Diam: 3.5 cm LAV(MOD-bp): 205.9 ml LVAd ap4: 24.9 cm2 LAV(MOD-bp) Indexed: 113.8 ml/m2 LVLd ap4: 6.5 cm LAV(MOD-sp2): 176.0 ml EDV(MOD-sp4): 79.5 ml LAV(MOD-sp4): 201.0 ml EDV(sp4-el): 81.2 ml LVAs ap4: 17.2 cm2 LVLs ap4: 5.4 cm ESV(MOD-sp4): 46.8 ml ESV(sp4-el): 46.5 ml EF(MOD-sp4): 41.1 % EF(sp4-el): 42.7 % SV(MOD-sp4): 32.7 ml SV(sp4-el): 34.6 ml LA A4 area: 44.5 cm2 SI(MOD-sp4): 18.1 ml/m2 LA dimension(2D): 6.2 cm RA A4 area: 36.4 cm2 Doppler Measurements & Calculations MV E max sunil: 107.4 cm/sec MV V2 max: 104.9 cm/sec Ao V2 max: 83.4 cm/sec MV max P.4 mmHg Ao max P.8 mmHg MV V2 mean: 50.4 cm/sec MV mean P.3 mmHg MV V2 VTI: 24.3 cm AI max sunil: 324.1 cm/sec LV V1 max: 62.7 cm/sec MR max sunil: 388.7 cm/sec AI max P.0 mmHg LV V1 max P.6 mmHg MR max P.4 mmHg AI Accel Time: 0.45 sec MR mean sunil: 298.8 cm/sec AI dec slope: 165.7 cm/sec2 MR mean P.1 mmHg AI P1/2t: 572.9 msec MR VTI: 125.9 cm PA V2 max: 104.1 cm/sec PI end-d sunil: 180.6 cm/sec TR max sunil: 326.1 cm/sec TR max P.5 mmHg ECHO/Echo Complete Interpretation Summary Normal LV size. The estimated ejection fraction is 40 %. There is moderate global hypokinesis of the left ventricle. The left atrium is severely enlarged. Pulmonary artery systolic pressure is 48 mmHg. Cardington : Akinetic. Anterior [place] : Hypokinetic Mid-Anterior : Mildly hypokinetic Compared to previous study, the left ventricular systolic function is the same. . Ordering Physician: Joann Correa Referring Physician: Humaira Churchill M.D. Performed By: Jules Javier RCS
== END | disposition home or self-care (01) ==
LOC: CVS 10:47
PROVIDERS: PCP Family Medicine; Referring Provider Physician Assistant Medical; Visit Provider Physician Assistant Medical
DX: Z01.818 Encounter for other preprocedural examination (principal); I25.10 Atherosclerotic heart disease of native coronary artery without angina pectoris
CPT/HCPCS: 93306

== ENCOUNTER 2024-05-10 08:14 | Outpatient (RCR) | payer MEDICARE, OTHER, SELFPAY ==
[2024-04-13 22:40] VITALS: BMI 28.8
[2024-05-10 10:27] LABS: Prothrombin Time (Protime)PT. 25.4 SECONDS (11.7-14.9)
[2024-05-10 10:28] LABS: International Normalized Ratio 2.3
== END 2024-05-10 18:00 | disposition home or self-care (01) ==
LOC: MTLAB 08:14
PROVIDERS: Family Provider Family Medicine; PCP Family Medicine; Referring Provider Internal Medicine Cardiovascular Disease; Visit Provider Internal Medicine Cardiovascular Disease
DX: I48.11 Longstanding persistent atrial fibrillation (principal); Z79.01 Long term (current) use of anticoagulants
CPT/HCPCS: 85610

== ENCOUNTER 2024-05-31 10:41 | Outpatient (RCR) | payer MEDICARE, OTHER, SELFPAY ==
[2024-05-15 05:10] VITALS: BMI 28.8
[2024-05-31 10:50] LABS: INR Fingerstick 2.5; Prothrombin Time Fingerstick 26.8 SEC (11.7-14.9)
== END 2024-05-31 18:00 | disposition home or self-care (01) ==
LOC: MTLAB 10:41
PROVIDERS: Family Provider Family Medicine; PCP Family Medicine; Referring Provider Internal Medicine Cardiovascular Disease; Visit Provider Internal Medicine Cardiovascular Disease
DX: I48.11 Longstanding persistent atrial fibrillation (principal); Z79.01 Long term (current) use of anticoagulants

== ENCOUNTER 2024-06-06 09:48 | Inpatient (IN) | payer MEDICARE, OTHER, SELFPAY ==
--- NOTE | 2024-03-26 08:00 | EKG12_ITS ---
Test Reason : PREOP Blood Pressure : */* mmHG Vent. Rate : 74 BPM Atrial Rate : 42 BPM P-R Int : * ms QRS Dur : 102 ms QT Int : 384 ms P-R-T Axes : * -70 115 degrees QTcB Int : 426 ms Atrial fibrillation Marked T wave abnormality, consider anterolateral ischemia Abnormal ECG Confirmed by LOLA PADILLA, REINA ([id number]), proposal editor BRET NUNEZ ([id number]) on 03/27/2024 8:48:18 AM Referred By: Jos Mejia Confirmed By: REINA DAVILA MD
[2024-03-26 09:26] LABS: Absolute Neutrophil Count 5.1 X10^3/uL (2.0-7.7); Basophil% 1.5 % (0-1); Eosinophil# 0.21 X10^3/uL; Eosinophils% 3.1 % (0-5); Hematocrit 36.8 % (37-47); Mean Corp Hgb Conc 29.9 g/dL (32-36); Mean Corpuscular Hgb 27.9 pg (27.0-32.0); Mean Corpuscular Volume 93.4 fL (81-99); Mean Platelet Vol. 11.1 fl (6.2-12.0); Monocyte% 10.5 % (0-10); NRBC Flagged by Analyzer 0 % (0-5); Neutrophil # 5.05 X10^3/uL (2.7-7.7); Neutrophil % 75.8 % (47-70); POSITIVE DIFFERENTIAL YES; Platelet Count 263 K/mm3 (150-450); RBC Distribution Width CV 14.6 % (11.6-14.6); RBC Distribution Width SD 49.7 fl (35.1-43.9); Red Blood Count 3.94 M/mm3 (4.2-5.4); White Blood Count 6.7 K/mm3 (4.4-11.0)
[2024-03-26 09:48] LABS: Albumin, Serum 3.7 g/dL (3.2-5.0)
[2024-03-26 11:06] LABS: Magnesium 2.6 mg/dL (1.6-2.6)
[2024-05-10 10:24] LABS: Absolute Lymphocyte Count 0.71 X10^3/uL (0.83-4.51); Absolute Neutrophil Count 5.1 X10^3/uL (2.0-7.7); Basophil# 0.06 X10^3/uL; Basophil% 0.9 % (0-1); Eosinophil# 0.11 X10^3/uL; Eosinophils% 1.7 % (0-5); Hematocrit 37.5 % (37-47); Hemoglobin 11.3 g/dL (12.0-15.0); Lymphocyte # 0.71 X10^3/ul (0.83-4.51); Lymphocyte % 10.8 % (19-41); Mean Corp Hgb Conc 30.1 g/dL (32-36); Mean Corpuscular Hgb 27.8 pg (27.0-32.0); Mean Corpuscular Volume 92.1 fL (81-99); Mean Platelet Vol. 11.4 fl (6.2-12.0); Monocyte# 0.53 X10^3/uL; Monocyte% 8.1 % (0-10); NRBC Flagged by Analyzer 0 % (0-5); Neutrophil # 5.12 X10^3/uL (2.7-7.7); Neutrophil % 78.2 % (47-70); Platelet Count 224 K/mm3 (150-450); RBC Distribution Width CV 15.5 % (11.6-14.6); RBC Distribution Width SD 52.1 fl (35.1-43.9); Red Blood Count 4.07 M/mm3 (4.2-5.4); White Blood Count 6.6 K/mm3 (4.4-11.0)
[2024-05-10 11:05] LABS: Albumin, Serum 3.8 g/dL (3.2-5.0); Anion Gap 2 (5-15); BUN 43 mg/dL (7-18); BUN/Creat Ratio 22.1 RATIO (10-20); Calcium,Total 9.6 mg/dL (8.5-10.1); Chloride 105 mmol/L (98-107); Creatinine, Serum 1.95 mg/dL (0.55-1.02); EST Glomerular Filtration Rate 26 mL/min (>60); Est Glom Filt Rate - Afr Amer 32 mL/min (>60); Glucose 101 mg/dL (74-106); Potassium 4.8 mmol/L (3.5-5.1); Sodium Level 139 mmol/L (136-145)
--- NOTE | 2024-05-27 09:44 | PAT.ANESEVAL ---
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 When Was Last Pacemaker Check QUESTION #4 FULL TEXT: You/Your Family Experience fever (hyperthermia) with Anesthesia Last Oral Intake Last Oral intake: Last Oral Intake NPO since Meds taken in AM with sips of water? Meds patient instructed to take am of surgery PONV PONV - electronic musical instrument repairer: PONV - electronic musical instrument repairer Female Yes 05/27/24 08:25 HX of Motion Sickness No 05/27/24 08:25 HX of N/V After Surgery No 05/27/24 08:25 Non-Smoker Yes 05/27/24 08:25 Duration of Surgery greater Yes 05/27/24 08:25 than 60 minutes Number of Risk Factors 3 05/27/24 08:25 PONV Score Moderate Risk 05/27/24 08:25 Height & Weight Height & Weight: Anesthesia: Height & Weight Height 5 ft 5 in 03/14/24 09:29 Respiratory Assessment Respiratory Assessment - electronic musical instrument repairer: Respiratory Tract Infection Hx - electronic musical instrument repairer Hx Respiratory Tract Infection No 05/27/24 08:25 STOP Sleep Apnea STOP Sleep Apnea - electronic musical instrument repairer: STOP Sleep Apnea - electronic musical instrument repairer Hx Hypertension Yes: CONTROLLED WITH MED 05/27/24 08:25 Hx Sleep Apnea No 05/27/24 08:25 CPAP No 05/27/24 08:25 BIPAP Do you snore loudly (louder No 05/27/24 08:25 than talking or can be heard Do you often feel tired/ No 05/27/24 08:25 fatigued/ sleepy during daytime? Has anyone observed you stop No 05/27/24 08:25 breathing during sleep? STOP Results Negative 05/27/24 08:25 QUESTION #5 FULL TEXT : Do you snore loudly (louder than talking or can be heard through closed doors)? 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 Specify any problems Hx of Preganancy in last 3 No 05/27/24 08:25 Months Nurse Filling Out Transfusion VCHRISTIN 05/27/24 08:25 & Questions: Date: 05/27/24 05/27/24 08:25 Time: 08:25 05/27/24 08:25 Patient unable to answer at this time (ie. confused, unrespo /Reproduction History /Reproductive History - electronic musical instrument repairer: /Reproductive Hx- electronic musical instrument repairer Hx Now No 05/27/24 08:25 Gestational Age (in weeks): EDC: Hx Hx Para Hx Section SAB No 05/27/24 08:25 PFSH Medical History Wears glasses Post-menopausal Anxiety Arthritis Back pain Syncope Former smoker Shortness of breath on exertion Hoarseness Hypertension History of stress test History of echocardiogram Cardiology follow-up encounter History of atrial fibrillation Chronic combined systolic and diastolic CHF (congestive heart failure) Hypertrophic cardiomyopathy 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 Longstanding persistent atrial fibrillation Hypothyroidism Secondary pulmonary arterial hypertension Vocal cord paralysis, unilateral complete Sick sinus syndrome Hyperlipidemia Left ventricular diastolic dysfunction FH: sudden cardiac (SCD) Home Medications ?Medication ?Instructions ?Recorded ?Last Taken ?Type aspirin 81 mg chewable tablet 81 mg PO DAILY@0800 01/22/15 01/30/17 History triamcinolone acetonide 55 mcg 1 spray NS PRN PRN Allergies 09/15/17 Unknown History nasal spray aerosol cholecalciferol (vitamin D3) 25 1,000 unit PO DAILY 07/24/18 Unknown History mcg (1,000 unit) capsule levothyroxine 100 mcg tablet 100 mcg PO Q OTHER DAY 07/24/18 Unknown History levothyroxine 75 mcg tablet 75 mcg PO Q OTHER DAY 07/24/18 01/22/24 History vit C 250 mg-vit E 90 mg-zinc 40 1 tab PO DAILY 07/24/18 Unknown History mg-copper 1 cy-bagafj-nyydoq capsule (PreserVision AREDS-2) acetaminophen 160 mg chewable 160 mg PO QHS 10/14/20 Unknown History tablet (Children's Tylenol) albuterol sulfate 90 mcg/actuation 2 puff inhalation Q6H PRN 10/14/20 Unknown History aerosol inhaler shortness of breath or wheezing lactobacillus combination no.8 3 3,000 mmu cells PO DAILY 10/14/20 Unknown History billion cell capsule (Adult Probiotic) magnesium 200 mg tablet 200 mg PO DAILY 09/21/21 Unknown History rhhj-lotfa-en6-ggc-ddm-gbwe-sterols 1 cap PO DAILY 11/01/22 Unknown History 375 mg-100 mg-36 mg-54 mg capsule (Glucosamine Chondroitin PLUS) Handicap Parking Placard #1 ea 06/26/23 Unknown Rx spironolactone 50 mg tablet 50 mg PO DAILY #90 TABLETS 10/16/23 01/22/24 Rx sacubitril 49 mg-valsartan 51 mg 1 tab PO BID #180 tabs 03/11/24 Unknown Rx tablet (Entresto) furosemide 40 mg tablet 80 mg PO DAILY 03/19/24 Unknown History warfarin 2.5 mg tablet 2.5 mg PO SUFRSA 03/19/24 Unknown History warfarin 5 mg tablet 5 mg PO MOTUWETH 03/19/24 Unknown History verapamil 120 mg tablet,extended 120 mg PO QHS #90 tabs 05/06/24 Unknown Rx release furosemide 40 mg tablet 40 mg PO QHS #90 tabs 05/22/24 Unknown Rx Allergy/AdvReac Type Severity Reaction Status Date / Time metoprolol Allergy Severe Abdominal Verified 05/27/24 08:18 pain, poor rate control amoxicillin AdvReac Rash Verified 05/27/24 08:18 lisinopril AdvReac Dry cough Verified 05/27/24 08:18 risedronate sodium (From AdvReac Rash Verified 05/27/24 08:18 Actonel) Family History Mother Cancer breast Sister Cancer breast and malignant melanoma Diabetes Brother Arrhythmia Surgical History (Updated 05/27/24 @ 08:25 by Shima Samson) History of laryngoscopy Hx of hemorrhoidectomy History of colonoscopy History of radiofrequency ablation procedure for cardiac arrhythmia (1999) History of hysterectomy Presence of permanent cardiac pacemaker (01/04/12) History of left heart catheterization (03/09/15) History of implantable cardiac defibrillator (ICD) History of dental surgery Hx of LASIK History of vocal cord surgery Social History Smoking Status: Former smoker how long ago did patient quit smokin years ago alcohol intake: never substance use type: does not use caffeine: No Audit: Pertinent Findings Pertinent Findings EKG Perinent findings: 03/26/2024 atrial fibrillation 74 bpm marked T wave abnormality consider anterolateral ischemia pacemaker in place Echo (EF%) pertinent findings: 04/12/2024 EF 40% moderate global hypokinesis of left ventricle PA pressure 48 Consult pertinent findings: Cardiology 01/16/2024 hypertrophic cardiomyopathy. Ejection fraction stable at 40% no changes chronic CHF stable atrial fibrillation chronic rate well-controlled cardiac pacemaker chronic stable Recommendation Anesthesia Recommendation Anesthesia recommendation: OPTIMIZED for anesthesia
[2024-06-06] VITALS (16 sets, daily range): BP systolic 91–109; BP diastolic 52–60; PULSE 65–98; RESP 9–17; TEMP 35.8–37.1; O2SAT 94–98; BMI 28.0
--- NOTE | 2024-06-06 | SHO_PTH ---
PATIENT: JAUN BUCKNER LOC: MS3 U#:[id number] AGE/SX: 78/F ROOM: [facility] [place] RE06/07/[address]: Dr. Jos Mejia DO : 1945 BED: 1 DIS: 06/09/2024 SPEC #: [id number] RECD: 06/06/24 13:36 STATUS: PHILLIP RETeri #: [id number] MARIANA: 06/06/24 00:[address]: Jos Mejia DEPT: SURGICAL PATHOLOGY RECD BY: Osman Olsen ENTERED: 06/06/24 13:36 SP TYPE: HUMERUS OTHR DR: MD Dr. Royce Fernandes MD Dr. Eric Jopperi, DO Tissues: Humerus, NOS Procedures: Decalcification bone/plaque Surgery Specimen Level IV HEADER OPERATION: Reverse total right shoulder arthroplasty PRE-OP DIAGNOSIS: TISSUE SUBMITTED: Humeral head MICROSCOPIC DIAGNOSIS Bone and tissue right shoulder, total shoulder replacement/resection: Humeral head with minimal degenerative osteoarthritic changes. TIMI. 06/12/2024 MICROSCOPIC DESCRIPTION Slides are reviewed. GROSS DESCRIPTION Received is one container labeled with the patient's name and designated bone and soft tissue. The specimen consists of a humeral head measuring 5 x 4.5 x 2.5 cm. The articular surface shows focal minimal areas of erosion, osteophyte formation. Articular surface is smooth with focal minimal areas of erosion. No soft tissue is identified. Sr Risk Management Consultant sections are submitted in two cassettes after decalcification. / SJ: 06/06/2024 TC:5 CPT: 21778, 91217
[2024-06-06 06:10] LABS: INR Fingerstick 4.1; Prothrombin Time Fingerstick 39.5 SEC (11.7-14.9)
[2024-06-06] MEDS: Lactated Ringers 1,000 ML 999 ML IV ×2 (06:16→09:52)
[2024-06-06] MEDS: Magnesium 1 GM over 15 mins IV (06:17)
[2024-06-06 06:28] LABS: International Normalized Ratio 1.4; Prothrombin Time (Protime)PT. 17.8 SECONDS (11.7-14.9)
--- NOTE | 2024-06-06 06:29 | PCM.PRE.AN2 ---
ASA Classification* ASA Classification ASA Classification: 3 Assessment & Plan Anesthesia* Anesthesia Assessment Anesthesia Assessment: Discussed sedation and/or anesthesia options, risks, benefits, and alternatives with patient/parents/legal guardian/POA. Questions invited. The patient/parents/legal guardian/POA seems to understand and agrees to proceed with anesthesia plan. Reviewed the physical assessment, medical history, allergy history and patient home medications list prior to surgery/procedure/anesthetic and documented any changes. Performed airway and anesthesia risk assessments. Anesthesia Type Anesthesia Type: General and Block History Source History Obtained from:: Patient and Chart Anesthesia Focused Assessment* Temperature: 98.3 F Pulse Rate: 93 Blood Pressure: 92/58 Respiratory Rate: 16 Pulse Ox: 98 Oxygen Delivery Method: Room Air Airway Assessment Mouth opens: >3 cm Mallampati Score: III Teeth Condition: Caps/Crowns Neck Range of motion (ROM): Full ROM Focused Labs Anesthesia Preop lab: CBC WBC 6.6 K/mm3 (4.4-11.0) 05/10/24 08:21 RBC 4.07 M/mm3 (4.2-5.4) L 05/10/24 08:21 Hgb 11.3 g/dL (12.0-15.0) L 05/10/24 08:21 Hct 37.5 % (37-47) 05/10/24 08:21 Plt Count 224 K/mm3 (150-450) 05/10/24 08:21 CHEMISTRY Potassium 4.8 mmol/L (3.5-5.1) 05/10/24 08:21 Sodium 139 mmol/L (136-145) 05/10/24 08:21 Magnesium 2.6 mg/dL (1.6-2.6) 03/26/24 08:34 BUN 43 mg/dL (7-18) H 05/10/24 08:21 Creatinine 1.95 mg/dL (0.55-1.02) H 05/10/24 08:21 Glucose 101 mg/dL (74-106) 05/10/24 08:21 TSH 1.880 uIU/mL (0.358-3.740) 03/26/24 08:34 COAG PT 17.8 SECONDS (11.7-14.9) H 06/06/24 06:15 INR 2.4 09/22/23 09:00 Pre-Assessment Diagnosis/Proposed Procedure Planned Operative Procedure(s): REVERSE RIGHT TOTAL SHOULDER ARTHROPLASTY Anesthesia History Anesthesia History - embedded processor: Anesthesia History - embedded processor Hx Hospitalization No 05/27/24 08:25 Any Problems With Anesthesia No 05/27/24 08:25 Cholinesterase deficiency No 05/27/24 08:25 You/Your Family Experience No 05/27/24 08:25 fever (hyperthermia) with Relationship Recent Exposure to Contagious No 06/06/24 06:05 Disease Does patient have nerve No 05/27/24 08:25 stimulator Patient instructed to have device shut off --Does patient have Pacemaker Yes 06/06/24 06:05 or ICD? When Was Last Pacemaker Check QUESTION #4 FULL TEXT: You/Your Family Experience fever (hyperthermia) with Anesthesia Last Oral Intake Last Oral intake: Last Oral Intake NPO since 04:50 06/06/24 06:05 Meds taken in AM with sips of Yes 06/06/24 06:05 water? Meds patient instructed to take am of surgery PONV PONV - embedded processor: PONV - embedded processor Female Yes 05/27/24 08:25 HX of Motion Sickness No 05/27/24 08:25 HX of N/V After Surgery No 05/27/24 08:25 Non-Smoker Yes 05/27/24 08:25 Duration of Surgery greater Yes 05/27/24 08:25 than 60 minutes Number of Risk Factors 3 05/27/24 08:25 PONV Score Moderate Risk 05/27/24 08:25 Height & Weight Height & Weight: Anesthesia: Height & Weight Height 5 ft 4 in 06/06/24 06:05 Weight: 74 kg 06/06/24 06:05 Body Mass Index (BMI) 28.0 06/06/24 06:05 Respiratory Assessment Respiratory Assessment - embedded processor: Respiratory Tract Infection Hx - embedded processor Hx Respiratory Tract Infection No 05/27/24 08:25 STOP Sleep Apnea STOP Sleep Apnea - embedded processor: STOP Sleep Apnea - embedded processor Hx Hypertension Yes: CONTROLLED WITH MED 05/27/24 08:25 Hx Sleep Apnea No 05/27/24 08:25 CPAP No 05/27/24 08:25 BIPAP Do you snore loudly (louder No 05/27/24 08:25 than talking or can be heard Do you often feel tired/ No 05/27/24 08:25 fatigued/ sleepy during daytime? Has anyone observed you stop No 05/27/24 08:25 breathing during sleep? STOP Results Negative 05/27/24 08:25 QUESTION #5 FULL TEXT : Do you snore loudly (louder than talking or can be heard through closed doors)? Tobacco Use History Tobacco Use History - embedded processor: Tobacco Use History - embedded processor Tobacco Use Smoking Status Former smoker 05/27/24 08:25 Hx Tobacco Use No 05/27/24 08:25 Years Smoking Packs Smoked per Day Smoking Cessation Date was No - quit smoking greater 05/27/24 08:25 within the last 15 years than 15 years ago Hx Smoking Cessation Date 05/15/89 05/27/24 08:25 Hx Smoking Cessation Counseling Hematologic Medial History Hematologic Hx - embedded processor: Hematologic Medical Hx - cutter tender Hx of Blood Transfusion No 05/27/24 08:25 Hx of Transfusion in last 3 No 05/27/24 08:25 Months Date of Last Transfusion (if within last 3 months) Ever experience any problems No 05/27/24 08:25 with transfusion(s)? Specify any problems Hx of Preganancy in last 3 No 05/27/24 08:25 Months Nurse Filling Out Transfusion VCHRISTIN 05/27/24 08:25 & Questions: Date: 05/27/24 05/27/24 08:25 Time: 08:25 05/27/24 08:25 Patient unable to answer at this time (ie. confused, unrespo /Reproduction History /Reproductive History - embedded processor: /Reproductive Hx- embedded processor Hx Now No 05/27/24 08:25 Gestational Age (in weeks): EDC: Hx Hx Para Hx Section SAB No 05/27/24 08:25 Active Medications Active Medications: Current Medications Generic Name Dose Route Start Last Admin Trade Name Freq PRN Reason Stop Dose Admin Acetaminophen 1,000 mg 06/06/24 10:15 Acetaminophen 500 Mg Tablet PO 06/06/24 10:16 X1 ONE Celecoxib 400 mg 06/06/24 10:15 Celecoxib 200 Mg Capsule PO 06/06/24 10:16 X1 ONE Dexamethasone Sodium Phosphate 10 mg 06/06/24 10:15 Dexamethasone 10 Mg/Ml Vial IV 06/06/24 10:16 X1 ONE Gabapentin 600 mg 06/06/24 10:15 Gabapentin 600 Mg Tablet PO 06/06/24 10:16 X1 ONE Lactated Ringer's 1,000 mls @ 999 mls/hr 06/06/24 10:15 06/06/24 06:16 IV 06/06/24 11:15 999 mls/hr .Q1H1M LEONILA Administration Cefazolin Sodium 2 gm/ N/A 20 mls @ 400 mls/hr 06/06/24 10:15 IV 06/06/24 10:17 PREOP ONE Tranexamic Acid 1,000 mg/ 110 mls @ 660 mls/hr 06/06/24 10:15 Sodium Chloride IV 06/06/24 10:24 X1 ONE Lactated Ringer's 1,000 mls @ 125 mls/hr 06/06/24 10:15 IV 06/06/24 18:14 .Q8H LEONILA Insulin Human Lispro 1 - 6 unit 06/06/24 10:15 Insulin Lispro 100 Unit/Ml Insuln.Pen SC Q4H PRN PRN BG>/= 180, SEE PROTOCOL Protocol PFSH Medical History Wears glasses Post-menopausal Anxiety Arthritis Back pain Syncope Former smoker Shortness of breath on exertion Hoarseness Hypertension History of stress test History of echocardiogram Cardiology follow-up encounter History of atrial fibrillation Chronic combined systolic and diastolic CHF (congestive heart failure) Hypertrophic cardiomyopathy 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 Longstanding persistent atrial fibrillation Hypothyroidism Secondary pulmonary arterial hypertension Vocal cord paralysis, unilateral complete Sick sinus syndrome Hyperlipidemia Left ventricular diastolic dysfunction FH: sudden cardiac (SCD) Home Medications ?Medication ?Instructions ?Recorded ?Last Taken ?Type aspirin 81 mg chewable tablet 81 mg PO DAILY@0800 01/22/15 06/05/24 History triamcinolone acetonide 55 mcg 1 spray NS PRN PRN Allergies 09/15/17 Unknown History nasal spray aerosol cholecalciferol (vitamin D3) 25 1,000 unit PO DAILY 07/24/18 06/01/24 History mcg (1,000 unit) capsule levothyroxine 100 mcg tablet 100 mcg PO Q OTHER DAY 07/24/18 06/04/24 History levothyroxine 75 mcg tablet 75 mcg PO Q OTHER DAY 07/24/18 06/06/24 04:50 History vit C 250 mg-vit E 90 mg-zinc 40 1 tab PO DAILY 07/24/18 06/01/24 History mg-copper 1 [id number]-dwvzbt capsule (PreserVision AREDS-2) acetaminophen 160 mg chewable 160 mg PO QHS 10/14/20 06/05/24 History tablet (Children's Tylenol) albuterol sulfate 90 mcg/actuation 2 puff inhalation Q6H PRN 10/14/20 06/06/24 History aerosol inhaler shortness of breath or wheezing lactobacillus combination no.8 3 3,000 mmu cells PO DAILY 10/14/20 06/01/24 History billion cell capsule (Adult Probiotic) magnesium 200 mg tablet 200 mg PO DAILY 09/21/21 06/01/24 History xwrj-kvdhx-et4-fcd-jou-qxfc-sterols 1 cap PO DAILY 11/01/22 06/01/24 History 375 mg-100 mg-36 mg-54 mg capsule (Glucosamine Chondroitin PLUS) Handicap Parking Placard #1 ea 06/26/23 Unknown Rx spironolactone 50 mg tablet 50 mg PO DAILY #90 TABLETS 10/16/23 06/05/24 Rx sacubitril 49 mg-valsartan 51 mg 1 tab PO BID #180 tabs 03/11/24 06/06/24 04:50 Rx tablet (Entresto) furosemide 40 mg tablet 80 mg PO DAILY 03/19/24 06/05/24 History warfarin 2.5 mg tablet 2.5 mg PO SUFRSA 03/19/24 06/02/24 History warfarin 5 mg tablet 5 mg PO MOTUWETH 03/19/24 06/03/24 History verapamil 120 mg tablet,extended 120 mg PO QHS #90 tabs 05/06/24 06/05/24 Rx release furosemide 40 mg tablet 40 mg PO QHS #90 tabs 05/22/24 06/05/24 Rx Allergy/AdvReac Type Severity Reaction Status Date / Time metoprolol Allergy Severe Abdominal Verified 06/06/24 05:58 pain, poor rate control amoxicillin AdvReac Rash Verified 06/06/24 05:58 lisinopril AdvReac Dry cough Verified 06/06/24 05:58 risedronate sodium (From AdvReac Rash Verified 06/06/24 05:58 Actonel) Family History Mother Cancer breast Sister Cancer breast and malignant melanoma Diabetes Brother Arrhythmia Surgical History History of laryngoscopy Hx of hemorrhoidectomy History of colonoscopy History of radiofrequency ablation procedure for cardiac arrhythmia (1999) History of hysterectomy Presence of permanent cardiac pacemaker (01/04/12) History of left heart catheterization (03/09/15) History of implantable cardiac defibrillator (ICD) History of dental surgery Hx of LASIK History of vocal cord surgery Social History Smoking Status: Former smoker how long ago did patient quit smokin years ago alcohol intake: never substance use type: does not use caffeine: No Prior Cardiac Testing/Procedures Prior Cardiac Testing/Procedures: Echocardiogram (40%; mild AI) Addt'l Information Additional Findings: Patient V-Paced Review of Systems (Anesthesia) ROS Narrative System reviewed and no additional complaints, except as documented. Physical Exam Const alert and oriented x3
[2024-06-06] MEDS: Acetaminophen 500 MG Tablet 1000 MG PO ×3 (06:37→22:09)
[2024-06-06] MEDS: Celecoxib 200 MG Capsule 400 MG PO (06:37)
[2024-06-06] MEDS: Gabapentin 600 MG Tablet PO (06:37)
[2024-06-06 07:04] LABS: Bedside Glucose 127 mg/dL (74-106)
[2024-06-06] MEDS: TXA 1000mg in NS100 100ml (IVPB at Incision) 660 MG IV (07:47)
[2024-06-06] MEDS: Cefazolin 2 GM in Syringe 10 ML IV (07:47)
[2024-06-06] MEDS: dexAMETHasone 10 MG/ML Vial IV (07:50)
--- NOTE | 2024-06-06 09:35 | RAD_ITS ---
STUDY: X-RAY - RIGHT SHOULDER REASON FOR EXAM: Female, 78 years old. Post op -- AP and Lateral X-Ray of operative shoulder in PACU TECHNIQUE: 2 view(s) of the shoulder. COMPARISON: None. FINDINGS: The patient is status post right reverse shoulder replacement. There is good alignment. Postoperative soft tissue changes. _ RAD/Shoulder min 2 Views IMPRESSION: Status post right reverse shoulder replacement. There is good alignment. Postoperative soft tissue changes. Electronically Signed: Renny Obrien MD at 10:01 EST ,
--- NOTE | 2024-06-06 09:48 | PCM.OPRPT ---
Operative Report (Standard) Operative Information Date of Procedure: 06/06/24 Pre-Operative Diagnosis: Right shoulder cuff tear arthropathy Post-Operative Diagnosis: Right shoulder cuff tear arthropathy Surgery/Procedure Performed: Right reverse total shoulder arthroplasty desktop administrator: Yes Dye Colorist Formulator: Carolina Esqueda Tasks completed by first coat sander: Opening & closing, Implanting device, Hemostasis: Electrocautery and Retracting Additional certified registered dental assistant?: No Type of Anesthesia: General/Regional RN Documented Start/Stop Times: Operation Date: 06/06/24 07:30 Case Time Into Pre-Op 06/06/24 05:33 Anesthesia Start 06/06/24 07:35 Into Room 06/06/24 07:35 Procedure Start 06/06/24 08:09 Procedure End 06/06/24 09:20 Anesthesia End 06/06/24 09:25 Out of Room 06/06/24 09:25 Into Recovery 06/06/24 09:30 Procedure Start Time: 08:09 Procedure Stop Time: 09:20 Select all DRAINS/GRAFTS/IMPLANTS that apply: Implanted device Implanted device details: Tornier Aequalis PerFORM+ reversed baseplate 25mm diameter +6 mm lateralization, standard glenosphere cobalt chrome 36mm diameter, Tornier perform inlay stem size #2+, + 3 mm retentive size number 2 polyethylene insert, short central post and peripheral screws x4. Estimated Blood Loss: 50 cc Specimen collected: Yes Description of specimen(s) removed: Right humeral head Description of surgery: Patient arrived to [facility] morning of the procedure and was greeted by the same day surgery staff. Prior to her procedure, I greeted the patient in the preoperative holding area I identified the patient by name, record number, and date of . Informed consent was confirmed. The operative extremity was marked. All questions were answered to patient satisfaction. An interscalene block was administered prior to procedure by anesthesia staff for postoperative and intraoperative analgesia. At time of her procedure, patient was brought to the operative suite and positioned supine on a standard table with a beachchair attachment. General anesthesia was induced after all bony prominences were well-padded. Endotracheal tube was placed. After adequate anesthesia and securing the tube, we prepared the patient to be positioned in the beachchair position. A well-padded laborer heading was applied. The nonoperative extremity was placed in a well arm banda. She was then brought into the beachchair position after we confirmed an appropriate blood pressure. We then spun the bed 45 degrees. The operative extremity was then prepared. In the butterfly wing of the bed was removed and a well-padded torso strap was applied to secure the patient to the bed. The operative extremity was now free. We then prepped and draped the right upper extremity in normal, sterile orthopedic fashion. We then performed a timeout with all parties in attendance in agreement with the side, site, and operation be performed. 2 g Ancef was administered prior to incision by anesthesia staff, as well as 1 g TXA IV. No concerns were voiced and we elected to proceed. I first marked a standard deltopectoral incision just lateral to the coracoid process in line with the long axis of the humerus. Skin was sharply incised with 10 blade scalpel. I then dissected bluntly through the subcutaneous layers and found the fat stripe between the deltoid and pectoralis major. The cephalic vein was then identified and protected. It was retracted laterally with the deltoid. I then bluntly dissected underneath the deltoid with a Noriega elevator. Darian retractor was placed. The upper 1 cm of the pectoralis major was released. I then identified the long head of the biceps tendon in the intertubercular groove. This was tenodesed in situ with #2 FiberWire. I then amputated the biceps proximal to the tenodesis site and followed the tendon to the supraglenoid tubercle where it was amputated. This identified the lesser and greater tuberosities. The supraspinatus was completely torn and retracted with an exposed greater tuberosity. I then performed a subscapularis peel while rotating the humerus externally. I tagged the subscapularis for possible repair later with a tagging suture. Humeral head was then dislocated anteriorly. Appropriate access to the humeral head was confirmed. I then subluxed the humeral head posteriorly with a Fukuda retractor placed around the posterior lip of the glenoid. Inferior capsule was tension. I was able to palpate the axillary nerve. Inferior capsule was then released to the 4 o'clock position of the glenoid face. 3 sided subscapularis release was performed with Bovie cautery. I then remove the Fukuda retractor and redislocated the shoulder anteriorly. I then made a anatomic neck cut of the cartilaginous surface of the humeral head. Sizing plate for a size #2 stem was utilized to determine appropriate reaming size. A central pin was placed engaging the lateral cortex of the humerus. A size # 2 reamer was used to ream the humeral metaphysis and prepare for the inlay stem. A canal finding reamer was utilized prior to sequential broaching to a size # 2 short stem with excellent rotational and axial purchase in the humerus. I remove the broach handle left the size # [address] I then subluxed the humerus posterior to the glenoid. I then placed retractors around the posterior and anterior glenoid to expose the glenoid. Glenoid labrum was removed with Bovie cautery protecting the axillary nerve. We then used drill guide from [employer] to position our centering pin, exiting approximately 25 mm from the joint surface along the anterior scapula. Guide was removed and pin was analyzed and compared to preoperative planning. It appeared to be in appropriate position. The Nautilus shaped reamer was then placed over top of the centering pin. I reamed a flat surface of the glenoid. We then removed the reamer and used the cannulated drill for the short central post. Post and baseplate was assembled on the back table. We then inserted the baseplate and central post the assembled baseplate to an appropriate depth with good press-fit purchase. A [place] was used to confirm depth. Cortical screws then were placed in the peripheral holes with good purchase. The baseplate had excellent purchase and the entire scapula would rotate with rotation of the baseplate. We then impacted the 36 mm glenosphere with a standard eccentricity and tightened the locking screw mechanism. We then removed retractors and turned our attention back to the humerus. I placed a standard +3 millimeters retentive polyethylene insert. I then reduced the shoulder. There was excellent range of motion and stability in all planes of motion. We selected this as our final size. We removed trials from the humerus after final dislocation. I copiously irrigated the canal. Broach was placed on hand and then impacted to an appropriate depth. Final + 3 mm retentive polyethylene insert was placed. Final reduction was then performed. The subscapularis was then identified with a tagging suture. Repair would have been likely under undue tension and likely failed. I elected to not perform a subscapularis repair. We then copiously irrigated the wound with sterile Betadine and normal saline solution. We reapproximated the interval with 0 Vicryl suture. Subcutaneous layers were reapproximated with 2 -0 Vicryl suture. Skin was finally running V-Loc 3-0 Monocryl suture and Dermabond. A sterile silver Mepilex dressing was applied. Patient was then placed in an ultra sling. Patient tolerated procedure well without complication. She was positioned back in the supine position extubated in the operative suite. She was transferred to the rmorse and subsequently to PACU in stable condition. Need for skilled certified registered dental assistant: Carolina Esqueda PA-C was critical to the outcome of the case. During the course of the procedure the physician certified registered dental assistant played a vital role. Her intimate knowledge of my steps in the procedure aided in safe and expedient completion of the procedure. The PA played a vital role in positioning particularly in obtaining the appropriate positioning. The PA was also vital in the retraction of soft tissues during the exposure and protecting vital structures. The PA was also vital and protecting soft tissues during times of bony cuts. She also played a vital role in closure with my direct supervision. The PA was also important during reduction and dislocation of the joint and trials intraoperatively. Intraoperative medications: 2 g Ancef IV, 1 g TXA IV x2 Post Operative Plan: Patient will be placed in observation due to her medical comorbidities. Dissipate home discharge tomorrow. Weightbearing: Nonweightbearing right upper extremity, okay for pendulums. Range of motion of wrist elbow and hand as tolerated. Antibiotics: 2 g Ancef IV prior to incision, 24 hours IV antibiotics postoperatively DVT Prophylaxis: Restart home Coumadin and aspirin postoperative day #1 Bowden: None Dressing: Maintain silver dressing x5 days. Okay to shower dressing on started on day 4 X-Rays: 2 weeks postop in the office Pain Medication: Oxycodone Rx upon discharge Follow-up: 2 weeks post-operatively with me in the office Surgical Findings: Cuff tear arthropathy right shoulder. Stable right shoulder following final implantation Complications Complications: No Admit VTE Documentation VTE Present on Admission: No VTE Mechan Device Prophylaxis: SCD's VTE Pharm Prophylaxis ordered?: Yes
--- NOTE | 2024-06-06 11:29 | PCM.POST.ANE ---
Anesthesia: Postop Eval I Current Vital Signs Temperature: 97.0 F Pulse Rate: 65 Blood Pressure: 96/56 Respiratory Rate: 16 Pulse Ox: 97 Oxygen Delivery Method: Room Air Assessment Airway patent: Yes Spontaneous unlabored respirations: Yes Mental status: Awake and Calm nausea: No Vomiting: No Anesthesia Complication: No Fluid Hydration Crystalloid volume administer (ml): 800 Total IV fluid infused: 800 Progress Note Anesthesia document: Postop Eval 1 completed: Yes
[2024-06-06] MEDS: Spironolactone 50 MG Tablet PO (14:09)
[2024-06-06] MEDS: Senna/Docusate Sodium 1 Tablet 2 TABLET PO ×2 (14:10→22:10)
[2024-06-06] MEDS: Furosemide 80 MG Tablet PO (14:10)
[2024-06-06] MEDS: Cefazolin 1 GM/50 ML BAG IV ×2 (15:30→22:19)
--- NOTE | 2024-06-06 16:23 | POSTOPAN2_ITS ---
Anesthesia Postop Eval I Sum Postop Eval Completion status Anesthesia document: Postop Eval 1 completed: Yes Anesthesia Postop Eval I Summary Anesthesia Postop Eval I Summary: Anesthesia Postop Eval I: Assessment Summary Airway patent Yes 06/06/24 11:30 IS [email or web address] Spontaneous unlabored Yes 06/06/24 11:30 IS [email or web address] respirations Mental status Awake,Calm 06/06/24 11:30 IS [email or web address] nausea No 06/06/24 11:30 IS [email or web address] Vomiting No 06/06/24 11:30 IS [email or web address] Anesthesia Postop Eval I: Fluid Summary Crystalloid volume administer 800 06/06/24 11:30 IS [email or web address] (ml) Colloids volume administered ( ml) Blood Product volume administered (ml) Total IV fluid infused 800 06/06/24 11:30 IS [email or web address] Anesthesia Postop Eval I: Summary Notes Anesthesia Complication No 06/06/24 11:30 IS [email or web address] Anesthesia Complication Comment: Post-operative progress note Anesthesia: Postop Eval II Evaluation Mental status: Awake and Calm Pain Level: 1 nausea: No Vomiting: No Complications Anesthesia Complication: No
--- NOTE | 2024-06-06 16:23 | PCM.POSTANE2 ---
Anesthesia Postop Eval I Sum Postop Eval Completion status Anesthesia document: Postop Eval 1 completed: Yes Anesthesia Postop Eval I Summary Anesthesia Postop Eval I Summary: Anesthesia Postop Eval I: Assessment Summary Airway patent Yes 06/06/24 11:30 AGRICULTURAL EDUCATION [email or web address] Spontaneous unlabored Yes 06/06/24 11:30 AGRICULTURAL EDUCATION [email or web address] respirations Mental status Awake,Calm 06/06/24 11:30 AGRICULTURAL EDUCATION [email or web address] nausea No 06/06/24 11:30 AGRICULTURAL EDUCATION [email or web address] Vomiting No 06/06/24 11:30 AGRICULTURAL EDUCATION [email or web address] Anesthesia Postop Eval I: Fluid Summary Crystalloid volume administer 800 06/06/24 11:30 AGRICULTURAL EDUCATION [email or web address] (ml) Colloids volume administered ( ml) Blood Product volume administered (ml) Total IV fluid infused 800 06/06/24 11:30 AGRICULTURAL EDUCATION [email or web address] Anesthesia Postop Eval I: Summary Notes Anesthesia Complication No 06/06/24 11:30 AGRICULTURAL EDUCATION [email or web address] Anesthesia Complication Comment: Post-operative progress note Anesthesia: Postop Eval II Evaluation Mental status: Awake and Calm Pain Level: 1 nausea: No Vomiting: No Complications Anesthesia Complication: No
--- NOTE | 2024-06-06 16:45 | PN_ITS ---
Subjective Subjective Patient seen and examined. Hospitalist service was consulted for medical management. She is a 78-year-old female with a past medical history as outlined was admitted for right reverse total shoulder arthroplasty due to a right shoulder rotator cuff tear. Today's postop day 0. Patient was resting comfortably in bed. Her right arm was in a sling. She denied any pain. She denied any fever or chills, nausea or vomiting or any other symptoms. Review of systems otherwise negative. Objective Data Objective Data Vital Signs: Vital Signs Temp Pulse Resp BP Pulse Ox O2 Del Method O2 Flow Rate 97.8 F 65 16 92/52 L 94 Nasal Cannula 2 06/06/24 15:21 06/06/24 15:21 06/06/24 15:21 06/06/24 15:21 06/06/24 15:21 06/06/24 15:21 06/06/24 15:21 Oxygen Flow Rate (L/min) 2 Oxygen Delivery Method Nasal Cannula Weight: 163 lb 2.273 oz Body Mass Index (BMI) 28.0 Intake & Output: Intake and Output for Last 24 Hours 06/04/24 06/05/24 06/06/24 23:59 23:59 23:59 Intake Total 1232 / 1232 Balance 1232 / 1232 Lab / Micro Data 05/10/24 08:21 05/10/24 08:21 Labs: Laboratory Results - last 24 hr 06/06/24 06:06: POC Glucose 127 H 06/06/24 06:07: POC PT 39.5 H, INR 4.1 H* 06/06/24 06:15: PT 17.8 H, INR 1.4 Micro: Microbiology 05/10/24 08:21 Nasal Secretion Nasal Screen MRSA/MSSA - Final 03/26/24 08:34 Swab (Method) Nasal Screen MRSA/MSSA - Final Radiography Diagnostic Testing: Radiology Impression Shoulder X-Ray 06/06/24 09:35 IMPRESSION: Status post right reverse shoulder replacement. There is good alignment. Postoperative soft tissue changes. Electronically Signed: Renny Obrien MD at 10:01 EST , Physical Exam Const alert, oriented x3 and no apparent distress General Appearance: cooperative and well developed HEENT normocephalic, head/scalp atraumatic and moist oral mucous membranes Eyes PERRL and EOMs intact bilaterally Resp normal respiratory effort, normal air movement and clear to auscultation bilaterally Cardio regular rate, regular rhythm, S1 normal heart sound and S2 normal heart sound GI normal to inspection, nondistended, normoactive bowel sounds, soft to palpation, non-tender and non-distended Extremity normal capillary refill, no clubbing, cyanosis or edema and no calf tenderness Extremity Narrative: RUE in sling. Intact dressing over right shoulder General Extremity: no tenderness to palpation of joints or extremities Skin General Skin Exam: no breakdown Neuro CN's II-XII intact bilaterally, no focal motor deficits and no sensory deficits noted Motor Exam: strength 5/5 throughout and general weakness Psych thought process normal and cooperative Appearance: appropriate Assessment & Plan Assessment/Plan (1) Chronic combined systolic and diastolic CHF (congestive heart failure): (2) Sick sinus syndrome: PLAN: Plan #RIght rotator cuff tear s/p right shoulder total reverse arthroplasty * today is POD 0 * Management as per primary service orthopedics * PT OT on board * Incentive spirometry. Fall precautions. * #Combined systolic and diastolic heart failure in the setting of hypertrophic cardiomyopathy * On Lasix 80 mg daily. * Also on Entresto. BP is in the 90s systolic; patient says that's how she usually runs. Will monitor closely. * 2D echo from 04/12/2024 showed EF of 40% with moderate global hypokinesis of the left ventricle. * Pulmonary systolic pressure was 48 mmHg. * #Hypoxia * Patient on 2 L of oxygen. Does not wear oxygen at home. Maybe due to residual effects of anesthesia. * Incentive spirometry. Breathing treatments bronchodilators. Titrate oxygen to maintain saturation above 90%. * #Hypothyroidism: On Synthroid #Persistent atrial fibrillation: on verapamil. On coumadin. Resume when ok with primary service. #Sick sinus syndrome status post pacemaker: Stable #Hyperlipidemia: On statins DVT prophylaxis: as per primary service orthopedics Thank you for the cardiology consult. Hospitalist service continue to follow with you. Charges/Coding Visit Charges Inpatient E&M: 26777 Subs Hosp L2
[2024-06-06] MEDS: Verapamil SR 240 MG Tablet 120 MG PO (22:09)
[2024-06-06] MEDS: SACUBITRIL/VALSARTAN 49-51 MG TABLET 1 EACH PO (22:10)
[2024-06-06] MEDS: Furosemide 40 MG Tablet PO (22:11)
[2024-06-07] VITALS (9 sets, daily range): BP systolic 75–98; BP diastolic 45–82; PULSE 67–91; RESP 16–19; TEMP 36.5–37.1; O2SAT 87–98; BMI 28.0
[2024-06-07] MEDS: oxyCODONE 5 MG Tablet PO (03:28)
[2024-06-07] MEDS: Levothyroxine 100 MCG Tablet PO (06:01)
[2024-06-07] MEDS: Acetaminophen 500 MG Tablet 1000 MG PO ×3 (06:01→20:09)
[2024-06-07 06:25] LABS: Hematocrit 33.9 % (37-47); Hemoglobin 10.5 g/dL (12.0-15.0); Mean Corpuscular Hgb 28.5 pg (27.0-32.0); Mean Corpuscular Volume 91.9 fL (81-99); Mean Platelet Vol. 11.9 fl (6.2-12.0); Platelet Count 170 K/mm3 (150-450); RBC Distribution Width CV 15.2 % (11.6-14.6); RBC Distribution Width SD 51.6 fl (35.1-43.9); Red Blood Count 3.69 M/mm3 (4.2-5.4); White Blood Count 10.9 K/mm3 (4.4-11.0)
[2024-06-07 07:32] LABS: Anion Gap 7 (5-15); BUN 43 mg/dL (7-18); BUN/Creat Ratio 24.2 RATIO (10-20); Calcium,Total 9.4 mg/dL (8.5-10.1); Chloride 102 mmol/L (98-107); Creatinine, Serum 1.78 mg/dL (0.55-1.02); EST Glomerular Filtration Rate 29 mL/min (>60); Est Glom Filt Rate - Afr Amer 36 mL/min (>60); Estimated Creatinine Clearance 26.08 ml/min; Glucose 137 mg/dL (74-106); Potassium 5.4 mmol/L (3.5-5.1); Sodium Level 134 mmol/L (136-145)
[2024-06-07] MEDS: Magnesium Chloride 64 MG Delay Rel.Tablet PO (10:29)
[2024-06-07] MEDS: Aspirin 81 MG TAB.CHEW PO (10:29)
[2024-06-07] MEDS: Senna/Docusate Sodium 1 Tablet 2 TABLET PO ×2 (10:29→20:09)
--- NOTE | 2024-06-07 11:05 | CASEMGMT ---
RN CM PEDIATRIC PHYSICIAN ASSISTANT CM?to room to meet with patient for initial transition planning/care coordination assessment. RN CM?introduced self and role at [facility]. Pt voices understanding and consents to assessment?at this time. Pt sitting up in chair in room in no distress at this time. Pt is A/O at this time and answers all questions appropriately. Care providers, pharmacy, and demographics verified/updated at this time. Strata:?1 PCP: Dr Churchill Specialists: Dr Mejia-ortho, Dr Christina-cardiology Preferred Pharmacy: [facility] [address] Prescription Benefit: yes LNOK: Pt has 4 siblings. Humaira, friend/caregiver, is listed as primary contact and then pt's sister, Juliana. Pt states Humaira is her HCPOA, but this was not found in [employer]. Living Arrangements: Pt lives alone in one-story home w/3 steps and bilat handrails to enter. Pt reports being independent w/ADL's and IADL's. 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 She reports a great support system, including friend, Humaira, family, and neighbors. She states she prepared frozen meals prior to surgery, TV dinners, and has food on hand to make. Her sister will get groceries for her if needed. Transportation:?Pt states drives self and states no transportation concerns at this time. Sister, Juliana, will take her home @ discharge. DME: States has the following DME: shower chair, RTS, grab bars. She has a cane and rollator available, if needed. She does not have a medical alert button and states would take info on this. This was provided to pt by DAPHNEY PATTERSON. Pt states no need for further DME at this time. HHC/SNF: No hx of either. Pt states planning on seeing Dr Mejia 06/21 and then start therapy on the same day w/HHC. Pt made aware of [facility]'s criteria of being homebound for HHC. She states she is not homebound and does not think she will be once returning home. Discussed options of OP therapy. She states may want to go to OP therapy @ [facility] in [place], but does not want to ask anyone to drive her to the appts. Made aware of [employer] and [facility] van transp. She states may be interested in this, but is not sure yet. She states she wants to think about this and will f/u with Dr Mejia's office once she makes a decision. She states would like someone to come help her bath @ home, or at least to be w/her the 1st couple times. Offered/accepted a [employer] agency list for aides. She also states may see if Humaira or another friend to help. She thanked RN YESENIA for the information and denies needing further assistance. Pt wishes to return home and states has no further concerns with going home at time of discharge. CM?to follow for any further discharge planning/needs. Pt voices no further concerns/needs at this time. Advised pt to ask for CM?if any further questions/concerns/needs arise. Voices understanding. PLAN: Home. Pt to f/u with Dr Mejia re: OP therapy. Sabina CONCEPCION RN, CM
--- NOTE | 2024-06-07 11:10 | PCM.PROGNOTE ---
Subjective Subjective Patient seen and examined. She had no active complaints. She denied any lightheadedness, dizziness, nausea, vomiting or any other symptoms. She does admit to some pain in her right shoulder at site of surgery. REview of systems is otherwise negative. BP is running low, in the 70s systolic today. Potassium is elevated at 5.4 today, and sodium is 134. Objective Data Objective Data Vital Signs: Vital Signs Temp Pulse Resp BP Pulse Ox O2 Del Method O2 Flow Rate 97.7 F L 82 18 75/47 L 94 Room Air 2 06/07/24 10:19 06/07/24 10:19 06/07/24 10:19 06/07/24 10:19 06/07/24 10:06/07/24 10:06/07/24 07:03 Oxygen Flow Rate (L/min) 2 Oxygen Delivery Method Room Air Weight: 163 lb 2.273 oz Body Mass Index (BMI) 28.0 Intake & Output: Intake and Output for Last 24 Hours 06/05/24 06/06/24 06/07/24 23:59 23:59 23:59 Intake Total 2332 / 2332 Output Total 200 / 200 Balance 2332 / 2332 -200 / -200 Lab / Micro Data 06/07/24 05:49 06/07/24 05:49 Labs: Laboratory Results - last 24 hr 06/07/24 05:49: WBC 10.9, RBC 3.69 L, Hgb 10.5 L, Hct 33.9 L, MCV 91.9, MCH 28.5, MCHC 31.0 L, RDW Std Deviation 51.6 H, RDW Coeff of Linda 15.2 H, Plt Count 170, MPV 11.9, Sodium 134 L, Potassium 5.4 H, Chloride 102, Carbon Dioxide 25.0, Anion Gap 7, BUN 43 H, Creatinine 1.78 H, Estim Creat Clear Calc 26.08, Est GFR (MDRD) Af Amer 36 L, Est GFR (MDRD) Non-Af 29 L, BUN/Creatinine Ratio 24.2 H, Glucose 137 H, Calcium 9.4 Micro: Microbiology 05/10/24 08:21 Nasal Secretion Nasal Screen MRSA/MSSA - Final 03/26/24 08:34 Swab (Method) Nasal Screen MRSA/MSSA - Final Radiography Diagnostic Testing: Radiology Impression Shoulder X-Ray 06/06/24 09:35 IMPRESSION: Status post right reverse shoulder replacement. There is good alignment. Postoperative soft tissue changes. Electronically Signed: Renny Obrien MD at 10:01 EST , Physical Exam Const alert, oriented x3 and no apparent distress General Appearance: cooperative and well developed HEENT normocephalic, head/scalp atraumatic and moist oral mucous membranes Eyes PERRL and EOMs intact bilaterally Neck no lymphadenopathy and supple Lymph Lymphatic: no lymphadenopathy noted Resp normal respiratory effort, normal air movement and clear to auscultation bilaterally Cardio regular rate, regular rhythm, S1 normal heart sound and S2 normal heart sound GI normal to inspection, nondistended, normoactive bowel sounds, soft to palpation, non-tender and non-distended Extremity normal capillary refill, no clubbing, cyanosis or edema and no calf tenderness Extremity Narrative: RUE in sling. Intact dressing over right shoulder General Extremity: no tenderness to palpation of joints or extremities Skin General Skin Exam: no breakdown Neuro CN's II-XII intact bilaterally, no focal motor deficits and no sensory deficits noted Motor Exam: strength 5/5 throughout and general weakness Psych thought process normal and cooperative Appearance: appropriate Assessment & Plan Assessment/Plan (1) Chronic combined systolic and diastolic CHF (congestive heart failure): (2) Sick sinus syndrome: PLAN: Plan #RIght rotator cuff tear s/p right shoulder total reverse arthroplasty today is POD 1 Management as per primary service orthopedics PT OT on board Incentive spirometry. Fall precautions. #Combined systolic and diastolic heart failure in the setting of hypertrophic cardiomyopathy On Lasix 80 mg daily. Also on Entresto. BP is down in the 70s systolic today. She usually runs in the 90s. 2D echo from 04/12/2024 showed EF of 40% with moderate global hypokinesis of the left ventricle. Pulmonary systolic pressure was 48 mmHg. hold entresto due to low BP. Hold spironolactone and lasix. If BP does not improve, will give IVF bolus 500cc x 1. #Hyperkalemia: K is 5.4. Will replace and trend. #Hypoxia Patient on 2 L of oxygen. Does not wear oxygen at home. Maybe due to residual effects of anesthesia. Incentive spirometry. Breathing treatments bronchodilators. Titrate oxygen to maintain saturation above 90%. #CKD III: Cr is 1.78, which is around her baseline. Will replace and trend. #Hypothyroidism: On Synthroid #Persistent atrial fibrillation: on verapamil. On coumadin. #Sick sinus syndrome status post pacemaker: Stable #Hyperlipidemia: On statins DVT prophylaxis: as per primary service orthopedics. On coumadin Thank you for the cardiology consult. Hospitalist service continue to follow with you. Charges/Coding Visit Charges Inpatient E&M: 74167 Subs Hosp L2
--- NOTE | 2024-06-07 11:22 | CASEMGMT ---
Met with patient to complete LOMBARDI form. LOMBARDI form explained to patient who voiced understanding and signed form. Original form placed in pt?s chart and copy provided to patient. Taryn Christensen, Discharge Planning Asst
--- NOTE | 2024-06-07 12:22 | PCM.PN.ORT ---
Subjective Subjective Patient is s/p right sided reverse total shoulder arthroplasty with Dr. Mejia 06/06/2024.. Patient resting comfortably in bed. Rates pain 4 / 10. States taking tylenol and oxycodone and ice help to relieve pain. Patient has been up with therapy. Patient will maintain UltraSling at all times. Okay for PT nonweightbearing to right upper extremity. Afebrile, no chest pain, shortness of breath, negative calf pain/ erythema, and no other signs of DVT. Medically patient has been hypotensive systolics 70s today normally she runs 90s. She is currently receiving a 500 cc bolus of IV fluids. Her potassium was replaced as it was low today at 5.4. She is also on oxygen 2 L which she does not wear at home. Maintains on aspirin and Coumadin for DVT ppx, this is resumed . Objective Data Objective Data Vital Signs: Vital Signs Temp Pulse Resp BP Pulse Ox O2 Del Method O2 Flow Rate 97.7 F L 82 18 75/47 L 94 Room Air 2 06/07/24 10:19 06/07/24 10:19 06/07/24 10:19 06/07/24 10:19 06/07/24 10:19 06/07/24 10:19 06/07/24 07:03 Oxygen Flow Rate (L/min) 2 Oxygen Delivery Method Room Air Weight: 74 kg Body Mass Index (BMI) 28.0 Intake & Output: Intake and Output for Last 24 Hours 06/05/24 06/06/24 06/07/24 23:59 23:59 23:59 Intake Total 2332 / 2332 Output Total 200 / 200 Balance 2332 / 2332 -200 / -200 Lab / Micro Data 06/07/24 05:49 06/07/24 05:49 Labs: Laboratory Results - last 24 hr 06/07/24 05:49: WBC 10.9, RBC 3.69 L, Hgb 10.5 L, Hct 33.9 L, MCV 91.9, MCH 28.5, MCHC 31.0 L, RDW Std Deviation 51.6 H, RDW Coeff of Linda 15.2 H, Plt Count 170, MPV 11.9, Sodium 134 L, Potassium 5.4 H, Chloride 102, Carbon Dioxide 25.0, Anion Gap 7, BUN 43 H, Creatinine 1.78 H, Estim Creat Clear Calc 26.08, Est GFR (MDRD) Af Amer 36 L, Est GFR (MDRD) Non-Af 29 L, BUN/Creatinine Ratio 24.2 H, Glucose 137 H, Calcium 9.4 Micro: Microbiology 05/10/24 08:21 Nasal Secretion Nasal Screen MRSA/MSSA - Final 03/26/24 08:34 Swab (Method) Nasal Screen MRSA/MSSA - Final Physical Exam Narrative Patient resting comfortably in bed No signs of acute distress Satting well on room air-- no O2 at this time. satting 94% on RA. Sling at all times Limb is warm to touch, Sensation intact throughout entire lower extremity, including axillary, radial, median, ulnar nerve distribution distribution. Motor intact to radial, median, ulnar nerve distribution Radial pulses bounding Dressing clear dry intact Calf nontender to palpation, no erythema, no edema. Negative Homans Assessment & Plan Assessment/Plan (1) S/p reverse total shoulder arthroplasty: PLAN: 1. Okay for PT. Sling at all times to right upper extremity. Nonweightbearing to right upper extremity 3. Patient will follow up for post op appointment as previously scheduled in 2 weeks. 4. Patient has outpatient PT appointment on 2 weeks after surgery. 5. WBC 10.9. no acute reactive leukocytosis 6. H/H 10.5/33.9: post operavtive anemia secondary to acute blood loss intraoperatively. Patient is asymptomatic at this time. No intraoperative complications. will continue to monitor. no acute interventions. 7. DVT prophylaxis : Aspirin 81 mg once daily as well as Coumadin these are home prescriptions and resume. 8. Pain control: patient instructed to take tylenol 500mg 2 tablets TID. and oxycodone 1-2 tablets every 4-6 hours only as needed for pain control. 9. Medicine is on board for consultation for this patient. She had hypokalemia today which was replaced. She is running hypotensive with systolics in the 70s that is consistent. Medicine gave her a 500 cc IV bolus today. Patient was also requiring 2 L of nasal cannula oxygen. She does not wear his oxygen at home. upon examination today she does not currently have it on, and not SOB. satting 94% on RA. Appreciate continued medical recommendations. At this time orthopedically her arm is stable however medically she is not appropriate for discharge at today's visit. We will monitor. Ultimately her plan is to go home after discharge. 10. ok to remove post op dressing. post op day 5
[2024-06-07] MEDS: 0.9% Normal Saline (500mL Bag) 500 ML 999 ML IV (12:46)
[2024-06-07] MEDS: 0.9% Saline Lock 10 ML Syringe IV (12:52)
[2024-06-07] MEDS: Sodium Polystyrene Sulfonate 15 GM/60 ML UDC 30 GM PO (13:44)
[2024-06-07 17:12] LABS: Anion Gap 7 (5-15); BUN 50 mg/dL (7-18); BUN/Creat Ratio 20.6 RATIO (10-20); Calcium,Total 9.1 mg/dL (8.5-10.1); Chloride 99 mmol/L (98-107); Creatinine, Serum 2.43 mg/dL (0.55-1.02); EST Glomerular Filtration Rate 21 mL/min (>60); Est Glom Filt Rate - Afr Amer 25 mL/min (>60); Glucose 124 mg/dL (74-106); Sodium Level 135 mmol/L (136-145)
[2024-06-07] MEDS: 0.9% Normal Saline (1000mL) 1,000 ML 75 ML IV (18:53)
[2024-06-07] MEDS: Ondansetron 4 MG/2 ML Vial IV (20:06)
--- NOTE | 2024-06-07 22:20 | PCM.HOSP.N ---
Hospitalist Note Patient with low BP earlier in the day. Did not start the MIVF until this evening. Still low BP, asymptomatic, will give additional small 250 cc IVF bolus and re-assess.
[2024-06-07] MEDS: 0.9% Normal Saline (250mL Bag) 250 ML 999 ML IV (23:16)
[2024-06-08] VITALS (12 sets, daily range): BP systolic 81–106; BP diastolic 43–64; PULSE 63–100; RESP 15–18; TEMP 36.6–37.1; O2SAT 95–100
[2024-06-08] MEDS: Levothyroxine 75 MCG Tablet PO (05:36)
[2024-06-08] MEDS: Acetaminophen 500 MG Tablet 1000 MG PO ×3 (05:37→21:45)
[2024-06-08 06:55] LABS: Anion Gap 9 (5-15); BUN 55 mg/dL (7-18); BUN/Creat Ratio 21.3 RATIO (10-20); Calcium,Total 8.8 mg/dL (8.5-10.1); Chloride 101 mmol/L (98-107); Creatinine, Serum 2.58 mg/dL (0.55-1.02); EST Glomerular Filtration Rate 19 mL/min (>60); Est Glom Filt Rate - Afr Amer 23 mL/min (>60); Estimated Creatinine Clearance 17.99 ml/min; Glucose 136 mg/dL (74-106); Potassium 5.2 mmol/L (3.5-5.1); Sodium Level 134 mmol/L (136-145)
[2024-06-08 08:00] LABS: International Normalized Ratio 2.1; Prothrombin Time (Protime)PT. 23.6 SECONDS (11.7-14.9)
[2024-06-08] MEDS: Sodium Polystyrene Sulfonate 15 GM/60 ML UDC 30 GM PO (08:57)
[2024-06-08] MEDS: Magnesium Chloride 64 MG Delay Rel.Tablet PO (09:00)
[2024-06-08] MEDS: Aspirin 81 MG TAB.CHEW PO (09:00)
--- NOTE | 2024-06-08 11:12 | PN_ITS ---
Subjective Subjective Patient seen and examined. She had a friend by her bedside. She had no active complaints. Pain was well-controlled. She did admit to diarrhea overnight. She has been given Kayexalate for hyperkalemia so she thinks the diarrhea may be related to that. Review of systems otherwise negative. Blood pressure was also running low overnight so Lasix and spironolactone as well as Entresto were held. Objective Data Objective Data Vital Signs: Vital Signs Temp Pulse Resp BP Pulse Ox O2 Del Method O2 Flow Rate 98.4 F 69 16 101/52 L 95 Nasal Cannula 2 06/08/24 08:02 06/08/24 08:02 06/08/24 08:02 06/08/24 08:02 06/08/24 08:07 06/08/24 08:07 06/08/24 08:07 Oxygen Flow Rate (L/min) 2 Oxygen Delivery Method Nasal Cannula Weight: 163 lb 2.273 oz Body Mass Index (BMI) 28.0 Intake & Output: Intake and Output for Last 24 Hours 06/06/24 06/07/24 06/08/24 23:59 23:59 23:59 Intake Total 2332 / 2332 1548.75 / 1848.75 700 / 700 Output Total 200 / 200 Balance 2332 / 2332 1348.75 / 1648.75 700 / 700 Lab / Micro Data 06/07/24 05:49 06/08/24 05:49 Labs: Laboratory Results - last 24 hr 06/07/24 16:38: Sodium 135 L, Potassium 5.0, Chloride 99, Carbon Dioxide 29.0, Anion Gap 7, BUN 50 H, Creatinine 2.43 H, Estim Creat Clear Calc 19.10, Est GFR (MDRD) Af Amer 25 L, Est GFR (MDRD) Non-Af 21 L, BUN/Creatinine Ratio 20.6 H, G lucose 124 H, Calcium 9.1 06/08/24 05:49: PT 23.6 H, INR 2.1, Sodium 134 L, Potassium 5.2 H, Chloride 101, Carbon Dioxide 24.0, Anion Gap 9, BUN 55 H, Creatinine 2.58 H, Estim Creat Clear Calc 17.99, Est GFR (MDRD) Af Amer 23 L, Est GFR (MDRD) Non-Af 19 L, B UN/Creatinine Ratio 21.3 H, Glucose 136 H, Calcium 8.8 Micro: Microbiology 05/10/24 08:21 Nasal Secretion Nasal Screen MRSA/MSSA - Final 03/26/24 08:34 Swab (Method) Nasal Screen MRSA/MSSA - Final Physical Exam Const alert, oriented x3 and no apparent distress General Appearance: cooperative and well developed HEENT normocephalic, head/scalp atraumatic and moist oral mucous membranes Eyes PERRL and EOMs intact bilaterally Neck no lymphadenopathy and supple Lymph Lymphatic: no lymphadenopathy noted Resp normal respiratory effort, normal air movement and clear to auscultation bilaterally Cardio regular rate, regular rhythm, S1 normal heart sound and S2 normal heart sound GI normal to inspection, nondistended, normoactive bowel sounds, soft to palpation, non-tender and non-distended Extremity normal capillary refill, no clubbing, cyanosis or edema and no calf tenderness Extremity Narrative: RUE in sling. Intact dressing over right shoulder General Extremity: no tenderness to palpation of joints or extremities Skin General Skin Exam: no breakdown Neuro CN's II-XII intact bilaterally, no focal motor deficits and no sensory deficits noted Motor Exam: strength 5/5 throughout and general weakness Psych thought process normal and cooperative Appearance: appropriate Assessment & Plan Assessment/Plan (1) Chronic combined systolic and diastolic CHF (congestive heart failure): (2) Sick sinus syndrome: PLAN: Plan #RIght rotator cuff tear s/p right shoulder total reverse arthroplasty * today is POD 3 * Management as per primary service orthopedics * PT OT on board * Incentive spirometry. Fall precautions. * #Combined systolic and diastolic heart failure in the setting of hypertrophic cardiomyopathy * On Lasix 80 mg daily. lasix and entresto as well as spironolactone held due to SAVANNA on CKD III * BP is up in the 90s today * 2D echo from 04/12/2024 showed EF of 40% with moderate global hypokinesis of the left ventricle. * Pulmonary systolic pressure was 48 mmHg. * #Hyperkalemia: K is 5.2. Will replace and trend. # #SAVANNA on CKD III * Creatinine today is up to 2.58. Creatinine has continued to trend upwards. * Patient has been hypotensive with a blood pressure of 70 systolic. I do think this was likely due to overdiuresis as she was on Lasix as well as Entresto and spironolactone. She also started having diarrhea yesterday. * Hydrated with IV fluid normal saline 75 cc/h. All diuretics held. * Trend creatinine. If creatinine does not improve will consult nephrology. Monitor urine output. #Hypoxia * still on 2L of oxygen. Denies any active shortness of breath. * Incentive spirometry. * breathing treatment with bronchodilators. * #Hypothyroidism: On Synthroid #Persistent atrial fibrillation: on verapamil. On coumadin. #Sick sinus syndrome status post pacemaker: Stable #Hyperlipidemia: On statins DVT prophylaxis: as per primary service orthopedics. On coumadin. INR today is 2.1. Charges/Coding Visit Charges Inpatient E&M: 27820 Subs Hosp L2
[2024-06-08] MEDS: 0.9% Normal Saline (1000mL) 1,000 ML 75 ML IV (11:22)
[2024-06-08] MEDS: SimETHICONE 80 MG Chewable Tablet PO ×3 (13:16→21:46)
--- NOTE | 2024-06-08 14:00 | PN.ORTHO_ITS ---
Subjective Subjective Patient seen and examined. Per nursing, patient was hypotensive getting up to chair just recently. She denies any lightheadedness or dizziness. Oxygen was just recently discontinued and patient has been satting well. She has had 2 episodes of diarrhea in the last 24 hours. She denies any pain in her right shoulder. Reports mild swelling in the right hand. Denies any numbness or tingling. Up to chair twice already today. Objective Data Objective Data Vital Signs: Vital Signs Temp Pulse Resp BP Pulse Ox O2 Del Method O2 Flow Rate 98.4 F 69 16 101/52 L 95 Nasal Cannula 2 06/08/24 08:02 06/08/24 08:02 06/08/24 08:02 06/08/24 08:02 06/08/24 08:07 06/08/24 08:07 06/08/24 08:07 Oxygen Flow Rate (L/min) 2 Oxygen Delivery Method Nasal Cannula Weight: 163 lb 2.273 oz Body Mass Index (BMI) 28.0 Intake & Output: Intake and Output for Last 24 Hours 06/06/24 06/07/24 06/08/24 23:59 23:59 23:59 Intake Total 2332 / 2332 1548.75 / 1848.75 700 / 700 Output Total 200 / 200 Balance 2332 / 2332 1348.75 / 1648.75 700 / 700 Lab / Micro Data 06/07/24 05:49 06/08/24 05:49 Labs: Laboratory Results - last 24 hr 06/07/24 16:38: Sodium 135 L, Potassium 5.0, Chloride 99, Carbon Dioxide 29.0, Anion Gap 7, BUN 50 H, Creatinine 2.43 H, Estim Creat Clear Calc 19.10, Est GFR (MDRD) Af Amer 25 L, Est GFR (MDRD) Non-Af 21 L, BUN/Creatinine Ratio 20.6 H, G lucose 124 H, Calcium 9.1 06/08/24 05:49: PT 23.6 H, INR 2.1, Sodium 134 L, Potassium 5.2 H, Chloride 101, Carbon Dioxide 24.0, Anion Gap 9, BUN 55 H, Creatinine 2.58 H, Estim Creat Clear Calc 17.99, Est GFR (MDRD) Af Amer 23 L, Est GFR (MDRD) Non-Af 19 L, B UN/Creatinine Ratio 21.3 H, Glucose 136 H, Calcium 8.8 Micro: Microbiology 05/10/24 08:21 Nasal Secretion Nasal Screen MRSA/MSSA - Final 03/26/24 08:34 Swab (Method) Nasal Screen MRSA/MSSA - Final Physical Exam Narrative General - A&Ox3, NAD. Hypotensive. Right upper Extremity - SILT & 5/5 in radial, ulnar, musculocutaneous, axillary, and median nerve distributions. Radial, ulnar pulses 2+. Compartments soft and compressible. BCR in finger tips. Incisional dressing C/D/I. Assessment & Plan Assessment/Plan (1) S/p reverse total shoulder arthroplasty: PLAN: POD#2 s/p right RSA -Patient still dealing with some postoperative hypotension and electrolyte abnormalities. I am recommending we keep the patient at least an additional day for continued supportive care. Her pressures look somewhat better today but I do feel sending her home today would be premature. - Pain control -judicious use of oxycodone due to any contribution to postoperative hypotension - Medicine following for medical management -appreciate input and recommendations. - PT/OT -pendulums only right upper extremity. - DVT PPX -Coumadin restarted, SCDs, early mobilization - Case management - D/C planning
[2024-06-08] MEDS: Verapamil SR 240 MG Tablet 120 MG PO (21:46)
[2024-06-08] MEDS: 0.9% Normal Saline (1000mL) 1,000 ML 100 ML IV (21:47)
[2024-06-09] VITALS (7 sets, daily range): BP systolic 91–122; BP diastolic 49–63; PULSE 77–101; RESP 16–18; TEMP 36.7–36.9; O2SAT 92–97
[2024-06-09] MEDS: Levothyroxine 100 MCG Tablet PO (04:27)
[2024-06-09] MEDS: Acetaminophen 500 MG Tablet 1000 MG PO ×2 (04:27→14:19)
[2024-06-09] MEDS: Aspirin 81 MG TAB.CHEW PO (07:53)
[2024-06-09] MEDS: Magnesium Chloride 64 MG Delay Rel.Tablet PO (07:53)
[2024-06-09] MEDS: SimETHICONE 80 MG Chewable Tablet PO ×2 (07:53→11:34)
[2024-06-09 07:57] LABS: Absolute Lymphocyte Count 0.24 X10^3/uL (0.83-4.51); Absolute Neutrophil Count 12.2 X10^3/uL (2.0-7.7); Basophil# 0.02 X10^3/uL; Basophil% 0.1 % (0-1); Eosinophil# 0.02 X10^3/uL; Eosinophils% 0.1 % (0-5); Hematocrit 30.9 % (37-47); Hemoglobin 9.9 g/dL (12.0-15.0); Lymphocyte # 0.24 X10^3/ul (0.83-4.51); Lymphocyte % 1.8 % (19-41); Mean Corpuscular Hgb 28.7 pg (27.0-32.0); Mean Corpuscular Volume 89.6 fL (81-99); Mean Platelet Vol. 11.6 fl (6.2-12.0); Monocyte# 0.88 X10^3/uL; Monocyte% 6.6 % (0-10); NRBC Flagged by Analyzer 0 % (0-5); Neutrophil # 12.16 X10^3/uL (2.7-7.7); Neutrophil % 91.1 % (47-70); POSITIVE DIFFERENTIAL YES; Platelet Count 161 K/mm3 (150-450); RBC Distribution Width CV 15.6 % (11.6-14.6); RBC Distribution Width SD 51.5 fl (35.1-43.9); Red Blood Count 3.45 M/mm3 (4.2-5.4); White Blood Count 13.4 K/mm3 (4.4-11.0)
[2024-06-09 08:22] LABS: Anion Gap 6 (5-15); BUN 55 mg/dL (7-18); BUN/Creat Ratio 31.1 RATIO (10-20); Calcium,Total 8.5 mg/dL (8.5-10.1); Chloride 101 mmol/L (98-107); Creatinine, Serum 1.77 mg/dL (0.55-1.02); EST Glomerular Filtration Rate 30 mL/min (>60); Est Glom Filt Rate - Afr Amer 36 mL/min (>60); Estimated Creatinine Clearance 26.23 ml/min; Glucose 109 mg/dL (74-106); Potassium 4.6 mmol/L (3.5-5.1); Sodium Level 131 mmol/L (136-145)
--- NOTE | 2024-06-09 10:01 | PN_ITS ---
Subjective Subjective Patient seen and examined. She had no active complaints. Pain is well- controlled. Blood pressure was up to 122/63 this morning but is now down to 92/58. She does run in the 90s chronically. Creatinine has also trended down to around her baseline and is 1.77. Review of systems is otherwise negative. Objective Data Objective Data Vital Signs: Vital Signs Temp Pulse Resp BP Pulse Ox O2 Del Method O2 Flow Rate 98.1 F 101 H 18 92/58 L 92 Room Air 2 06/09/24 07:41 06/09/24 07:41 06/09/24 09:09 06/09/24 07:41 06/09/24 09:09 06/09/24 09:09 06/09/24 07:41 Oxygen Flow Rate (L/min) 2 Oxygen Delivery Method Room Air Weight: 163 lb 2.273 oz Body Mass Index (BMI) 28.0 Intake & Output: Intake and Output for Last 24 Hours 06/07/24 06/08/24 06/09/24 23:59 23:59 23:59 Intake Total 1548.75 / 1848.75 3511.25 / 3511.25 1600 / 1600 Output Total 200 / 200 Balance 1348.75 / 1648.75 3511.25 / 3511.25 1600 / 1600 Lab / Micro Data 06/09/24 07:40 06/09/24 07:40 Labs: Laboratory Results - last 24 hr 06/09/24 07:40: WBC 13.4 H, RBC 3.45 L, Hgb 9.9 L, Hct 30.9 L, MCV 89.6, MCH 28.7, MCHC 32.0, RDW Std Deviation 51.5 H, RDW Coeff of Linda 15.6 H, Plt Count 161, MPV 11.6, Immature Gran % (Auto) 0.300, Neut % (Auto) 91.1 H, Lymph % (Auto) 1.8 L, [place] % (Auto) 6.6, Eos % (Auto) 0.1, Baso % (Auto) 0.1, Absolute Neuts (auto) 12.2 H, Absolute Lymphs (auto) 0.24 L, Nucleated RBC % 0, Sodium 131 L, Potassium 4.6, Chloride 101, Carbon Dioxide 24.0, Anion Gap 6, BUN 55 H, Creatinine 1.77 H, Estim Creat Clear Calc 26.23, Est GFR (MDRD) Af Amer 36 L, E st GFR (MDRD) Non-Af 30 L, BUN/Creatinine Ratio 31.1 H, Glucose 109 H, Calcium 8.5 Micro: Microbiology 05/10/24 08:21 Nasal Secretion Nasal Screen MRSA/MSSA - Final 03/26/24 08:34 Swab (Method) Nasal Screen MRSA/MSSA - Final Physical Exam Const alert, oriented x3 and no apparent distress General Appearance: cooperative and well developed HEENT normocephalic, head/scalp atraumatic and moist oral mucous membranes Eyes PERRL and EOMs intact bilaterally Neck no lymphadenopathy and supple Lymph Lymphatic: no lymphadenopathy noted Resp normal respiratory effort, normal air movement and clear to auscultation bilaterally Cardio regular rate, regular rhythm, S1 normal heart sound and S2 normal heart sound GI normal to inspection, nondistended, normoactive bowel sounds, soft to palpation, non-tender and non-distended Extremity normal capillary refill, no clubbing, cyanosis or edema and no calf tenderness Extremity Narrative: RUE in sling. Intact dressing over right shoulder General Extremity: no tenderness to palpation of joints or extremities Skin General Skin Exam: no breakdown Neuro CN's II-XII intact bilaterally, no focal motor deficits and no sensory deficits noted Motor Exam: strength 5/5 throughout and general weakness Psych thought process normal and cooperative Appearance: appropriate Assessment & Plan Assessment/Plan (1) Chronic combined systolic and diastolic CHF (congestive heart failure): (2) Sick sinus syndrome: PLAN: Plan #RIght rotator cuff tear s/p right shoulder total reverse arthroplasty * today is POD 3 * Management as per primary service orthopedics * PT OT on board * Incentive spirometry. Fall precautions. * #Combined systolic and diastolic heart failure in the setting of hypertrophic cardiomyopathy * On Lasix 80 mg daily. lasix and entresto as well as spironolactone held due to SAVANNA on CKD III * 2D echo from 04/12/2024 showed EF of 40% with moderate global hypokinesis of the left ventricle. * Pulmonary systolic pressure was 48 mmHg. * BP has improved. Went up to the 120s systolic and is now in the 90s systolic. Will resume her metoprolol at 40 mg daily. * Will decrease Entresto to 2436 mg. Spironolactone discontinued due to hyperkalemia. Discussed with the marketing financial analyst. * #Hyperkalemia: Resolved. Potassium is 4.6 today. Spironolactone discontinued. # #SAVANNA on CKD III * Creatinine as stated is down to 1.77 today from 2.58 yesterday. This was likely due to the hypotension as well as the concomitant effect of her Lasix and Entresto as well as spironolactone. She also had some diarrhea which likely contributed to the dehydration resulting in the SAVANNA on CKD stage III * Creatinine is back down to her baseline is 1.77 today. * Creatinine today is up to 2.58. Creatinine has continued to trend upwards. * Patient has been hypotensive with a blood pressure of 70 systolic. I do think this was likely due to overdiuresis as she was on Lasix as well as Entresto and spironolactone. She also started having diarrhea yesterday. * Hydrated with IV fluid normal saline 75 cc/h. All diuretics held. * Trend creatinine. If creatinine does not improve will consult nephrology. Monitor urine output. #Hypoxia * resolved. On room air. * breathing treatment with bronchodilators. * #Hypothyroidism: On Synthroid #Persistent atrial fibrillation: on verapamil. On coumadin. #Sick sinus syndrome status post pacemaker: Stable #Hyperlipidemia: On statins DVT prophylaxis: as per primary service orthopedics. On coumadin. INR is pending. Goal INR is 2-3. Charges/Coding Visit Charges Inpatient E&M: 67827 Subs Hosp L2
[2024-06-09 10:33] LABS: International Normalized Ratio 2.5; Prothrombin Time (Protime)PT. 27.2 SECONDS (11.7-14.9)
[2024-06-09] MEDS: Furosemide 40 MG Tablet PO (11:34)
--- NOTE | 2024-06-09 14:13 | PCM.DC.SUM ---
Providers Date of Admission: 06/07/24 Date of Discharge: 06/09/24 Primary Care Physician: Dr. Humaira Churchill MD Consultations 06/06/24 09:47 Consult: Hospitalist Routine Consulting Provider: Peter Aguiar Reason for Consult: Post op medical management, s/p right total shoulder EMERGENT Consult: No MD Notified: Yes Date Notified: 06/06/24 Time Notified: 12:00 Method of Notification: Text Reason For Visit: REVERSE RIGHT TOTAL SHOULDER ARTHROPLASTY, ERAS Diagnosis Discharge Diagnosis (1) Chronic combined systolic and diastolic CHF (congestive heart failure): Status: Chronic Code(s): I50.42 - Chronic combined systolic (congestive) and diastolic (congestive) heart failure (2) Sick sinus syndrome: Status: Chronic Code(s): I49.5 - Sick sinus syndrome Medications at Discharge Home Medications aspirin 81 mg chewable tablet 81 mg PO DAILY@0800 01/22/15 triamcinolone acetonide 55 mcg nasal spray aerosol 1 spray NS PRN PRN Allergies 09/15/17 cholecalciferol (vitamin D3) 25 mcg (1,000 unit) capsule 1,000 unit PO DAILY 07/24/18 levothyroxine 100 mcg tablet 100 mcg PO Q OTHER DAY 07/24/18 levothyroxine 75 mcg tablet 75 mcg PO Q OTHER DAY 07/24/18 vit C 250 mg-vit E 90 mg-zinc 40 mg-copper 1 [id number]-arnlqp-rfctvu capsule (PreserVision AREDS-2) 1 tab PO DAILY 07/24/18 albuterol sulfate 90 mcg/actuation aerosol inhaler 2 puff inhalation Q6H PRN shortness of breath or wheezing 10/14/20 lactobacillus combination no.8 3 billion cell capsule (Adult Probiotic) 3,000 mmu cells PO DAILY 10/14/20 magnesium 200 mg tablet 200 mg PO DAILY 09/21/21 [id number]-[id number]-[id number]-mpz-qfc-qghn-sterols 375 mg-100 mg-36 mg-54 mg capsule (Glucosamine Chondroitin PLUS) 1 cap PO DAILY 11/01/22 Handicap Parking Placard #1 ea 06/26/23 warfarin 2.5 mg tablet 2.5 mg PO SUFRSA 03/19/24 warfarin 5 mg tablet 5 mg PO MOTUWETH 03/19/24 verapamil 120 mg tablet,extended release 120 mg PO QHS #90 tabs 12/23/24 acetaminophen 500 mg tablet 1,000 mg (2 x 500 mg) PO Q8 30 days #180 tabs 06/09/24 furosemide 40 mg tablet 40 mg PO DAILY #30 tabs 06/09/24 oxycodone 5 mg tablet 5 - 10 mg (1 - 2 x 5 mg) PO Q6H 7 days #28 tabs 06/09/24 sacubitril 24 mg-valsartan 26 mg tablet (Entresto) 1 tab PO BID #60 tabs 06/09/24 Hospital Course Summary of Care Provided Minutes Spent on Discharge: 25 Hospital Course: Patient underwent uncomplicated right reverse total shoulder arthroplasty 06/06/2024. Patient was initially placed in observation overnight for medical monitoring and early convalescence given her multiple comorbidities. Her postoperative course was complicated by hypotension, acute kidney injury in the setting of chronic kidney disease stage III, hyperkalemia and hypoxia. Hospitalist service was consulted for medical management. Her diuretics were held and kidney function improved, hyperkalemia improved with Kayexalate as well, she was able to wean from supplemental oxygen and blood pressure returned to her normal baseline by postoperative day #3. She was able to be discharged to home on postoperative day #3. Her Coumadin was restarted on postoperative day #0 and has returned to a target range prior to discharge. Plan is to recheck INR in the next 48 hours as an outpatient. She has to follow-up with her mechanical engineering draftsperson within 1 week to monitor response to medication changes. Physical Exam Narrative General - A&Ox3, NAD. Hypotensive. Right upper Extremity - SILT & 5/5 in radial, ulnar, musculocutaneous, axillary, and median nerve distributions. Radial, ulnar pulses 2+. Compartments soft and compressible. BCR in finger tips. Incisional dressing C/D/I. Weight / BMI Weight Weight: 163 lb 2.273 oz Body Mass Index (BMI) 28.0 ABG / Lab / Microbiology Data 06/09/24 07:40 06/09/24 07:40 Laboratory: Laboratory Results - last 24 hr 06/09/24 07:40: WBC 13.4 H, RBC 3.45 L, Hgb 9.9 L, Hct 30.9 L, MCV 89.6, MCH 28.7, MCHC 32.0, RDW Std Deviation 51.5 H, RDW Coeff of Linda 15.6 H, Plt Count 161, MPV 11.6, Immature Gran % (Auto) 0.300, Neut % (Auto) 91.1 H, Lymph % (Auto) 1.8 L, [place] % (Auto) 6.6, Eos % (Auto) 0.1, Baso % (Auto) 0.1, Absolute Neuts (auto) 12.2 H, Absolute Lymphs (auto) 0.24 L, Nucleated RBC % 0, PT 27.2 H, INR 2.5, Sodium 131 L, Potassium 4.6, Chloride 101, Carbon Dioxide 24.0, Anion Gap 6, BUN 55 H, Creatinine 1.77 H, Estim Creat Clear Calc 26.23, Est GFR (MDRD) Af Amer 36 L, Est GFR (MDRD) Non-Af 30 L, BUN/Creatinine Ratio 31.1 H, Glucose 109 H, Calcium 8.5 Microbiology: Microbiology 05/10/24 08:21 Nasal Secretion Nasal Screen MRSA/MSSA - Final 03/26/24 08:34 Swab (Method) Nasal Screen MRSA/MSSA - Final D/C Instructions DC O2, CPAP, BIPAP Needs Home O2 Discharge instructions: No Meaningful Use Info Meaningful Use Meaningful Use Diagnoses (Choose all that apply): None applicable Ischemic Stroke Statin Dosing Therapy Reference: STATIN DOSE THERAPY REFERENCE: * Patients > 75 years receive moderate or high dose statin therapy. * Patients 75 years or YOUNGER should receive HIGH intensity statin dose unless contraindicated. You will be required to document reason for non-treatment if statin daily dose does not meet guidelines. HIGH DOSE STATIN THERAPY DAILY Atorvastatin > than or = to 40 mg Rosuvastatin > than or = to 20 mg Amlodipine + Atorvastatin > than or = to 2.5/40 mg Ezetimibe + Simvastatin 10/80 mg Simvastatin 80mg Discharge Plan Admission Admit Date/Time: 06/07/24 18:53 Primary Reason for Your Visit: Right reverse total shoulder arthroplasty Attending Provider: Jos Mejia Primary Care Provider: Humaira Churchill Consulting Providers: Royce Nix; Rochelle Merritt Instructions Additional Instructions / Restrictions: Follow preprinted instructions from your surgeons office Recheck INR blood work within 48 hours upon discharge Discharge Orders/Prescriptions Prescriptions: New furosemide 40 mg Tablet 40 mg PO DAILY Qty: 30 2RF sacubitril-valsartan [Entresto] 24-26 mg Tablet 1 tab PO BID Qty: 60 2RF acetaminophen 500 mg Tablet 1,000 mg PO Q8 30 Days Qty: 180 0RF oxycodone 5 mg Tablet 5 - 10 mg PO Q6H 7 Days Qty: 28 0RF Continued levothyroxine 75 mcg tablet 75 mcg PO Q OTHER DAY levothyroxine 100 mcg tablet 100 mcg PO Q OTHER DAY PreserVision AREDS-2 [id number] kw-asft-oz-mg capsule 1 tab PO DAILY cholecalciferol (vitamin D3) 1,000 unit capsule 1,000 unit PO DAILY albuterol sulfate 90 mcg/actuation HFA aerosol inhaler 2 puff INHALATION Q6H PRN (Reason: shortness of breath or wheezing) Adult Probiotic 3 billion cell capsule 3,000 mmu cells PO DAILY Rx Instructions: administer with a meal magnesium 200 mg tablet 200 mg PO DAILY Glucosamine Chondroitin PLUS [id number] mg capsule 1 cap PO DAILY aspirin 81 MG tablet,chewable 81 mg PO DAILY@0800 triamcinolone acetonide 1 SPRAY aerosol,spray 1 spray NS PRN PRN (Reason: Allergies) Patient Comments: NEEDED warfarin 2.5 mg tablet 2.5 mg PO SUFRSA Protocol: Dose Management Condition: Monday Dose/Route: 2.5 mg Instruction: 1 x 2.5 mg tablet Condition: Monday Dose/Route: 5 mg Instruction: 1 x 5 mg tablet Condition: Monday Dose/Route: 5 mg Instruction: 1 x 5 mg tablet Condition: Monday Dose/Route: 5 mg Instruction: 1 x 5 mg tablet Condition: Dose/Route: 5 mg Instruction: 1 x 5 mg tablet Condition: Monday Dose/Route: 2.5 mg Instruction: 1 x 2.5 mg tablet Condition: Monday Dose/Route: 2.5 mg Instruction: 1 x 2.5 mg tablet Protocol Text: Adjustment Start Date: Monday05/31/24 INR Value: 2.5 INR Date: 05/31/24 Recheck Date: 06/30/24 Patient Comments: HOLD 5 DAYS PRIOR TO SURGERY-LAST DOSE 05/31/24 warfarin 5 mg tablet 5 mg PO MOTUWBETTIE Protocol: Dose Management Condition: Monday Dose/Route: 2.5 mg Instruction: 1 x 2.5 mg tablet Condition: Monday Dose/Route: 5 mg Instruction: 1 x 5 mg tablet Condition: Monday Dose/Route: 5 mg Instruction: 1 x 5 mg tablet Condition: Monday Dose/Route: 5 mg Instruction: 1 x 5 mg tablet Condition: Dose/Route: 5 mg Instruction: 1 x 5 mg tablet Condition: Monday Dose/Route: 2.5 mg Instruction: 1 x 2.5 mg tablet Condition: Monday Dose/Route: 2.5 mg Instruction: 1 x 2.5 mg tablet Protocol Text: Adjustment Start Date: Monday05/31/24 INR Value: 2.5 INR Date: 05/31/24 Recheck Date: 06/30/24 Patient Comments: LAST DOSE 05/31/24 Rx Instructions: 5 mg PO every day (DME) Handicap Parking Placard See Rx Instructions .Route .MEDSUPPLY Qty: 1 0RF Rx Instructions: As directed verapamil 120 mg tablet extended release 120 mg PO QHS Qty: 90 3RF Discontinued acetaminophen [Children's Tylenol] 160 mg tablet,chewable 160 mg PO QHS furosemide 40 mg tablet 80 mg PO DAILY spironolactone 50 mg tablet 50 mg PO DAILY Qty: 90 3RF Entresto 49-51 mg tablet 1 tab PO BID Qty: 180 3RF furosemide 40 mg tablet 40 mg PO QHS Qty: 90 3RF Rx Instructions: 40 mg orally 2 tablets (80 mg) in the am and 1 tablet (40 mg) in the pm; Referrals / Follow Up: Humaira Churchill MD [Primary Care Provider] - Jamie Christina MD [Med Staff - Active Staff] - Within 1 Week (call office to get appointment for evaluation after heart failure meds adjusted.) Jos Mejia DO [Med Staff - Active Staff] - Within 2 Weeks Disposition Disposition (needs filled in before D/C Order can be placed): Home, Self Care
--- NOTE | 2024-06-09 14:18 | DCINST_ITS ---
Discharge Instructions DC O2, CPAP, BIPAP needs Home O2 Discharge instructions: No Follow Up Care Test Results: Test results from this visit will be discussed in further detail at your follow- up appointment, if applicable. Discharge Plan Admission Admit Date/Time: 06/07/24 18:53 Primary Reason for Your Visit: Right reverse total shoulder arthroplasty Attending Provider: Jos Mejia Primary Care Provider: Humaira Churchill Consulting Providers: Royce Nix; Rochelle Merritt Instructions Additional Instructions / Restrictions: Follow preprinted instructions from your surgeons office Recheck INR blood work within 48 hours upon discharge Discharge Orders/Prescriptions Prescriptions: New furosemide 40 mg Tablet 40 mg PO DAILY Qty: 30 2RF sacubitril-valsartan [Entresto] 24-26 mg Tablet 1 tab PO BID Qty: 60 2RF acetaminophen 500 mg Tablet 1,000 mg PO Q8 30 Days Qty: 180 0RF oxycodone 5 mg Tablet 5 - 10 mg PO Q6H 7 Days Qty: 28 0RF Continued levothyroxine 75 mcg tablet 75 mcg PO Q OTHER DAY levothyroxine 100 mcg tablet 100 mcg PO Q OTHER DAY PreserVision AREDS-2 [id number] xt-ihqo-zu-mg capsule 1 tab PO DAILY cholecalciferol (vitamin D3) 1,000 unit capsule 1,000 unit PO DAILY albuterol sulfate 90 mcg/actuation HFA aerosol inhaler 2 puff INHALATION Q6H PRN (Reason: shortness of breath or wheezing) Adult Probiotic 3 billion cell capsule 3,000 mmu cells PO DAILY Rx Instructions: administer with a meal magnesium 200 mg tablet 200 mg PO DAILY Glucosamine Chondroitin PLUS [id number] mg capsule 1 cap PO DAILY aspirin 81 MG tablet,chewable 81 mg PO DAILY@0800 triamcinolone acetonide 1 SPRAY aerosol,spray 1 spray NS PRN PRN (Reason: Allergies) Patient Comments: NEEDED warfarin 2.5 mg tablet 2.5 mg PO SUFRSA Protocol: Dose Management Condition: Monday Dose/Route: 2.5 mg Instruction: 1 x 2.5 mg tablet Condition: Monday Dose/Route: 5 mg Instruction: 1 x 5 mg tablet Condition: Monday Dose/Route: 5 mg Instruction: 1 x 5 mg tablet Condition: Monday Dose/Route: 5 mg Instruction: 1 x 5 mg tablet Condition: Dose/Route: 5 mg Instruction: 1 x 5 mg tablet Condition: Monday Dose/Route: 2.5 mg Instruction: 1 x 2.5 mg tablet Condition: Monday Dose/Route: 2.5 mg Instruction: 1 x 2.5 mg tablet Protocol Text: Adjustment Start Date: Monday05/31/24 INR Value: 2.5 INR Date: 05/31/24 Recheck Date: 06/30/24 Patient Comments: HOLD 5 DAYS PRIOR TO SURGERY-LAST DOSE 05/31/24 warfarin 5 mg tablet 5 mg PO SPENCER Protocol: Dose Management Condition: Monday Dose/Route: 2.5 mg Instruction: 1 x 2.5 mg tablet Condition: Monday Dose/Route: 5 mg Instruction: 1 x 5 mg tablet Condition: Monday Dose/Route: 5 mg Instruction: 1 x 5 mg tablet Condition: Monday Dose/Route: 5 mg Instruction: 1 x 5 mg tablet Condition: Dose/Route: 5 mg Instruction: 1 x 5 mg tablet Condition: Monday Dose/Route: 2.5 mg Instruction: 1 x 2.5 mg tablet Condition: Monday Dose/Route: 2.5 mg Instruction: 1 x 2.5 mg tablet Protocol Text: Adjustment Start Date: Monday05/31/24 INR Value: 2.5 INR Date: 05/31/24 Recheck Date: 06/30/24 Patient Comments: LAST DOSE 05/31/24 Rx Instructions: 5 mg PO every day (DME) Handicap Parking Placard See Rx Instructions .Route .MEDSUPPLY Qty: 1 0RF Rx Instructions: As directed verapamil 120 mg tablet extended release 120 mg PO QHS Qty: 90 3RF Discontinued acetaminophen [Children's Tylenol] 160 mg tablet,chewable 160 mg PO QHS furosemide 40 mg tablet 80 mg PO DAILY spironolactone 50 mg tablet 50 mg PO DAILY Qty: 90 3RF Entresto 49-51 mg tablet 1 tab PO BID Qty: 180 3RF furosemide 40 mg tablet 40 mg PO QHS Qty: 90 3RF Rx Instructions: 40 mg orally 2 tablets (80 mg) in the am and 1 tablet (40 mg) in the pm; Referrals / Follow Up: Humaira Churchill MD [Primary Care Provider] - Jamie Christina MD [Med Staff - Active Staff] - Within 1 Week (call office to get appointment for evaluation after heart failure meds adjusted.) Jos Mejia DO [Med Staff - Active Staff] - Within 2 Weeks Disposition Disposition (needs filled in before D/C Order can be placed): Home, Self Care
== END 2024-06-09 16:24 | disposition home or self-care (01) | DRG 483 ==
LOC: SDC 10:29 → MS3 10:29
PROVIDERS: Anesthesiology; Student in an Organized Health Care Education/Training Program; Admitting Provider Student in an Organized Health Care Education/Training Program; PCP Family Medicine; Referring Provider Student in an Organized Health Care Education/Training Program; Visit Provider Student in an Organized Health Care Education/Training Program
PROC: 0RRJ00Z Replacement of Right Shoulder Joint with Reverse Ball and Socket Synthetic Substitute, Open Approach (ICD-10-PCS; CPT 23472; principal; 2024-06-06 07:00)
DX: M75.101 Unspecified rotator cuff tear or rupture of right shoulder, not specified as traumatic (principal); D62 Acute posthemorrhagic anemia; I50.42 Chronic combined systolic (congestive) and diastolic (congestive) heart failure; I13.0 Hypertensive heart and chronic kidney disease with heart failure and stage 1 through stage 4 chronic kidney disease, or unspecified chronic kidney disease; I48.19 Other persistent atrial fibrillation; N17.9 Acute kidney failure, unspecified; I42.2 Other hypertrophic cardiomyopathy; N18.30 Chronic kidney disease, stage 3 unspecified; E03.9 Hypothyroidism, unspecified; I49.5 Sick sinus syndrome; E87.6 Hypokalemia; E78.5 Hyperlipidemia, unspecified; E87.5 Hyperkalemia; S43.021A Posterior subluxation of right humerus, initial encounter; I95.81 Postprocedural hypotension; E87.8 Other disorders of electrolyte and fluid balance, not elsewhere classified; N99.89 Other postprocedural complications and disorders of genitourinary system; Z95.0 Presence of cardiac pacemaker; Z79.82 Long term (current) use of aspirin; R09.02 Hypoxemia; Z79.01 Long term (current) use of anticoagulants; Z96.611 Presence of right artificial shoulder joint; Z79.890 Hormone replacement therapy
CPT/HCPCS: 36415; 36416; 73030; 80048; 82040; 82962; 83735; 84443; 85025; 85027; 85610; 87081; 88305; 88311; 93005; 94668; 97167; 97535; C1713; C1776; A4216; J2405; J3475

== ENCOUNTER → 2024-06-13 | Outpatient (CLI) | payer MEDICARE, OTHER, SELFPAY ==
--- NOTE | 2024-06-13 11:53 | RAD_ITS ---
PROCEDURE: CHEST PA AND LATERAL REASON FOR EXAM: CHF. TECHNIQUE: Four view wheelchair AP and lateral chest. COMPARISON: PA and lateral chest of 01/16/2020. RAD/Chest PA and Lateral IMPRESSION: Right thoracic transvenous pacemaker/AICD device with leads again noted. Given the relative hypoinflation of the current exam, probable stable cardiomegaly is noted. Although lungs are hypoinflated, no gross acute pneumonic process is seen. No pulmonary edema is appreciated. No pleural effusion or pneumothorax is evident. Partially visualized reverse right total shoulder prosthesis is seen, new since the comparison prior exam. Moderate degenerative changes of the thoracic spine are noted. No acute osseous process is evident. Reading Location: [id number]
[2024-06-13 15:30] LABS: Absolute Lymphocyte Count 0.25 X10^3/uL (0.83-4.51); Absolute Neutrophil Count 9.3 X10^3/uL (2.0-7.7); Basophil# 0.03 X10^3/uL; Basophil% 0.3 % (0-1); Eosinophil# 0.01 X10^3/uL; Eosinophils% 0.1 % (0-5); Hematocrit 33.3 % (37-47); Hemoglobin 10.7 g/dL (12.0-15.0); Lymphocyte # 0.25 X10^3/ul (0.83-4.51); Lymphocyte % 2.3 % (19-41); Mean Corp Hgb Conc 32.1 g/dL (32-36); Mean Corpuscular Hgb 28.1 pg (27.0-32.0); Mean Corpuscular Volume 87.4 fL (81-99); Monocyte# 0.98 X10^3/uL; Monocyte% 9.2 % (0-10); NRBC Flagged by Analyzer 0 % (0-5); Neutrophil # 9.25 X10^3/uL (2.7-7.7); Neutrophil % 86.9 % (47-70); POSITIVE DIFFERENTIAL YES; Platelet Count 296 K/mm3 (150-450); RBC Distribution Width CV 15.7 % (11.6-14.6); RBC Distribution Width SD 50.2 fl (35.1-43.9); Red Blood Count 3.81 M/mm3 (4.2-5.4); White Blood Count 10.7 K/mm3 (4.4-11.0)
[2024-06-13 15:43] LABS: Anion Gap 11 (5-15); BUN 63 mg/dL (7-18); Calcium,Total 9.7 mg/dL (8.5-10.1); Chloride 101 mmol/L (98-107); Creatinine, Serum 1.75 mg/dL (0.55-1.02); EST Glomerular Filtration Rate 30 mL/min (>60); Est Glom Filt Rate - Afr Amer 36 mL/min (>60); Glucose 146 mg/dL (74-106); Potassium 3.9 mmol/L (3.5-5.1); Sodium Level 135 mmol/L (136-145)
== END | disposition home or self-care (01) ==
LOC: MTLAB 11:51
PROVIDERS: PCP Family Medicine; Referring Provider Family Medicine; Visit Provider Family Medicine
DX: I50.9 Heart failure, unspecified (principal)
CPT/HCPCS: 36415; 71046; 80048; 83880; 85025

== ENCOUNTER 2024-06-21 07:46 | Inpatient (IN) | payer MEDICARE, OTHER, SELFPAY ==
[2024-06-21] VITALS (44 sets, daily range): BP systolic 58–160; BP diastolic 31–112; PULSE 65–101; RESP 13–24; TEMP 35.7–37.6; O2SAT 92–100; BMI 29.6; BMI 29.0
--- NOTE | 2024-06-21 07:53 | EKG12_ITS ---
Test Reason : SOB Blood Pressure : */* mmHG Vent. Rate : 71 BPM Atrial Rate : * BPM P-R Int : * ms QRS Dur : 76 ms QT Int : 370 ms P-R-T Axes : * 21 172 degrees QTcB Int : 402 ms Atrial fibrillation with occasional ventricular-paced complexes Low voltage QRS T wave abnormality, consider lateral ischemia Abnormal ECG Confirmed by LOLA PADILLA, REINA ([id number]), food editor BRET NUNEZ ([id number]) on 06/24/2024 6:48:20 AM Referred By: CHELSY Confirmed By: REINA DAVILA MD
--- NOTE | 2024-06-21 07:53 | ED.VIS.DYS ---
HPI History of Present Illness Chief Complaint: Shortness of Breath Informant: patient Onset/Context/Timing Onset: Today Context: sudden Quality: Positive for - (Cannot catch my breath) Worsened by: Nothing and - Relieved by: Nothing Associated Symptoms Negative for cough, rhinorrhea, post nasal drip, ear pain, fever, sore throat, chills, clear sputum, white sputum, yellow sputum or green sputum Chest Pain: Positive for None Narrative Narrative: Patient presents with shortness of breath that began earlier this morning. Patient states it began rather suddenly. Patient states it feels like she cannot catch her breath. Patient states nothing makes it better and nothing makes it worse. Patient denies any cough. Patient denies any fevers or chills. Patient denies any chest pain. Patient denies any sore throat or rhinorrhea. Patient admits to some nausea but denies any vomiting. Patient had recent right shoulder surgery 2 weeks ago. PE Risk Factors: Positive for Recent surgery PFSH PFSH Medical History Wears glasses Post-menopausal Anxiety Arthritis Back pain Syncope Former smoker Shortness of breath on exertion Hoarseness Hypertension History of stress test History of echocardiogram Cardiology follow-up encounter History of atrial fibrillation Chronic combined systolic and diastolic CHF (congestive heart failure) Hypertrophic cardiomyopathy 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 Longstanding persistent atrial fibrillation Hypothyroidism Secondary pulmonary arterial hypertension Vocal cord paralysis, unilateral complete Sick sinus syndrome Hyperlipidemia Left ventricular diastolic dysfunction FH: sudden cardiac (SCD) Home Medications ?Medication ?Instructions ?Recorded ?Last Taken ?Type aspirin 81 mg chewable tablet 81 mg PO DAILY@0800 01/22/15 06/05/24 History triamcinolone acetonide 55 mcg 1 spray NS PRN PRN Allergies 09/15/17 Unknown History nasal spray aerosol cholecalciferol (vitamin D3) 25 1,000 unit PO DAILY 07/24/18 06/01/24 History mcg (1,000 unit) capsule levothyroxine 100 mcg tablet 100 mcg PO Q OTHER DAY 07/24/18 06/04/24 History levothyroxine 75 mcg tablet 75 mcg PO Q OTHER DAY 07/24/18 06/06/24 04:50 History vit C 250 mg-vit E 90 mg-zinc 40 1 tab PO DAILY 07/24/18 06/01/24 History mg-copper 1 [id number]-tvcirs-mqokmo capsule (PreserVision AREDS-2) albuterol sulfate 90 mcg/actuation 2 puff inhalation Q6H PRN 10/14/20 06/06/24 History aerosol inhaler shortness of breath or wheezing lactobacillus combination no.8 3 3,000 mmu cells PO DAILY 10/14/20 06/01/24 History billion cell capsule (Adult Probiotic) magnesium 200 mg tablet 200 mg PO DAILY 09/21/21 06/01/24 History wpob-hnjgb-nd1-mem-ytb-erkb-sterols 1 cap PO DAILY 11/01/22 06/01/24 History 375 mg-100 mg-36 mg-54 mg capsule (Glucosamine Chondroitin PLUS) Handicap Parking Placard #1 ea 06/26/23 Unknown Rx warfarin 2.5 mg tablet 2.5 mg PO SUFRSA 03/19/24 06/02/24 History warfarin 5 mg tablet 5 mg PO MOTUWETH 03/19/24 06/03/24 History verapamil 120 mg tablet,extended 120 mg PO QHS #90 tabs 05/06/24 06/05/24 Rx release acetaminophen 500 mg tablet 1,000 mg (2 x 500 mg) PO Q8 30 06/09/24 Unknown Rx days #180 tabs furosemide 40 mg tablet 40 mg PO DAILY #30 tabs 06/09/24 Unknown Rx oxycodone 5 mg tablet 5 - 10 mg (1 - 2 x 5 mg) PO Q6H 7 06/09/24 Unknown Rx days #28 tabs sacubitril 24 mg-valsartan 26 mg 1 tab PO BID #180 tabs 06/11/24 Unknown Rx tablet (Entresto) Allergy/AdvReac Type Severity Reaction Status Date / Time metoprolol Allergy Severe Abdominal Verified 06/21/24 07:46 pain, poor rate control amoxicillin AdvReac Rash Verified 06/21/24 07:46 lisinopril AdvReac Dry cough Verified 06/21/24 07:46 risedronate sodium (From AdvReac Rash Verified 06/21/24 07:46 Actonel) Family History Mother Cancer breast Sister Cancer breast and malignant melanoma Diabetes Brother Arrhythmia Surgical History History of laryngoscopy Hx of hemorrhoidectomy History of colonoscopy History of radiofrequency ablation procedure for cardiac arrhythmia (1999) History of hysterectomy Presence of permanent cardiac pacemaker (01/04/12) History of left heart catheterization (03/09/15) History of implantable cardiac defibrillator (ICD) History of dental surgery Hx of LASIK History of vocal cord surgery Social History Smoking Status: Former smoker how long ago did patient quit smokin years ago alcohol intake: never substance use type: does not use caffeine: No ROS ROS ED Constitutional Constitutional ED: Denies chills or fever(s) Eyes Eyes: Denies blurry vision or diplopia ENT ENT ED: Denies rhinorrhea or sore throat Cardiovascular Cardiovascular: Denies chest pain or palpitations Respiratory/Chest Respiratory/Chest: Reports dyspnea; Denies cough Gastrointestinal Gastrointestinal: Reports nausea; Denies vomiting Genitourinary Genitourinary ED: Denies dysuria or hematuria Musculoskeletal Musculoskeletal: Reports back pain; Denies neck pain Integumentary Denies abscess or rash Neurologic Neurologic: Denies headache(s) or weakness Allergic/Immunologic Allergic/Immunologic ED: Denies mouth swelling or urticaria EXAM Physical Exam Const Vital Signs: 06/21/24 07:46 06/21/24 07:51 06/21/24 07:53 Temperature 96.3 F L 96.3 F L Temperature Source Temporal Temporal Pulse Rate 69 74 76 Respiratory Rate 20 H 18 23 H Respiratory Effort Respiratory Depth Respiratory Pattern Blood Pressure 85/40 L 85/40 L Blood Pressure Mean 55 55 Pulse Ox 100 96 Oxygen Delivery Method Room Air Room Air Oxygen Flow Rate (L/min) 06/21/24 07:57 06/21/24 08:00 06/21/24 08:15 Temperature Temperature Source Pulse Rate 74 Respiratory Rate 22 H Respiratory Effort Short of Breath Respiratory Depth Normal Respiratory Pattern Normal Blood Pressure 70/41 L 69/47 L Blood Pressure Mean 51 55 Pulse Ox Oxygen Delivery Method Room Air Oxygen Flow Rate (L/min) 06/21/24 08:15 06/21/24 08:30 06/21/24 08:45 Temperature Temperature Source Pulse Rate 65 65 70 Respiratory Rate 24 H 22 H 17 Respiratory Effort Respiratory Depth Respiratory Pattern Blood Pressure 69/47 L 70/36 L 75/55 L Blood Pressure Mean 55 48 63 Pulse Ox Oxygen Delivery Method Oxygen Flow Rate (L/min) 06/21/24 08:51 06/21/24 09:00 06/21/24 09:15 Temperature 98.3 F Temperature Source Temporal Pulse Rate 74 66 67 Respiratory Rate 15 17 14 Respiratory Effort Respiratory Depth Respiratory Pattern Blood Pressure 69/36 L 58/31 L 69/36 L Blood Pressure Mean 47 39 46 Pulse Ox 95 100 Oxygen Delivery Method Nasal Cannula Oxygen Flow Rate (L/min) 2 06/21/24 09:27 06/21/24 09:30 06/21/24 09:35 Temperature 98.6 F Temperature Source Oral Pulse Rate 69 75 71 Respiratory Rate 19 H 15 16 Respiratory Effort Respiratory Depth Respiratory Pattern Normal Blood Pressure 79/49 L 79/49 L Blood Pressure Mean 59 60 Pulse Ox 95 Oxygen Delivery Method Room Air Oxygen Flow Rate (L/min) 06/21/24 09:42 06/21/24 09:45 06/21/24 09:57 Temperature 98.1 F 98 F Temperature Source Oral Temporal Pulse Rate 71 84 71 Respiratory Rate 18 23 H 18 Respiratory Effort Respiratory Depth Respiratory Pattern Blood Pressure 73/63 L 73/63 L 81/51 L Blood Pressure Mean 66 68 61 Pulse Ox 95 96 Oxygen Delivery Method Room Air Nasal Cannula Oxygen Flow Rate (L/min) 06/21/24 10:00 06/21/24 10:12 06/21/24 10:15 Temperature 97.9 F Temperature Source Temporal Pulse Rate 77 Respiratory Rate 19 H Respiratory Effort Respiratory Depth Respiratory Pattern Blood Pressure 81/51 L 73/33 L 73/33 L Blood Pressure Mean 60 46 45 Pulse Ox 95 Oxygen Delivery Method Nasal Cannula Oxygen Flow Rate (L/min) 06/21/24 10:27 06/21/24 10:30 06/21/24 10:45 Temperature 97.6 F L Temperature Source Temporal Pulse Rate 74 87 Respiratory Rate 18 20 H Respiratory Effort Respiratory Depth Respiratory Pattern Blood Pressure 93/60 93/60 79/67 L Blood Pressure Mean 71 71 73 Pulse Ox 99 Oxygen Delivery Method Nasal Cannula Oxygen Flow Rate (L/min) 06/21/24 11:00 06/21/24 11:15 Temperature Temperature Source Pulse Rate 101 H Respiratory Rate 20 H Respiratory Effort Respiratory Depth Respiratory Pattern Blood Pressure 88/70 L 94/65 Blood Pressure Mean 76 75 Pulse Ox Oxygen Delivery Method Oxygen Flow Rate (L/min) Positive well nourished and well developed General Appearance ED: well developed and NAD HEENT Reports moist mucous membranes Neck supple and no JVD Resp normal respiratory effort Cardio regular rate Rhythm: abnormal rhythm irregularly irregular GI non-tender and non-distended GI Narrative: Rectal exam showed good sphincter tone. There is black stool. There are no masses palpated. Palpation: soft Extremity General Extremety ED: Yes edema; Negative for tenderness General Extremity: edema Neuro oriented x3, CN's II-XII intact bilaterally and no sensory deficits noted Alannah Coma Scale: document GCS findings Spontaneous Obeys Commands Oriented 15 Sensorium / Orientation: alert Speech: speech normal Psych mental status grossly normal Sepsis Attestation Sepsis Alert: Yes Date exam was performed: 06/21/24 Time exam was performed: 07:45 Possible Source of Sepsis: Pulmonary, GI tract/intra-abdominal and Wound Sepsis Organ Dysfunction Criteria Present: SBP < 90 mmHg or MAP < 65 mmHg, Creatinine > 2.0 mg/dL and INR > 1.5 or aPTT > 60 sec Fluid Resuscitation Fluid resuscitation indicated?: Yes Fluid Resuscitation ordered: Lesser volume fluid bolus ordered Amount of fluid ordered: 1,500 Reason for lesser fluid bolus:: Concern for fluid overload and Heart failure Sepsis Note Date exam was performed: 06/21/24 Time exam was performed: 11:00 Sepsis Attestation: Sepsis re-evaluation was performed Response to fluids: Fluid responsive hypotension MDM MDM MDM Narrative Medical decision making narrative: Differential diagnosis includes pulmonary embolism, pneumonia, cardiac dysrhythmia, cardiac ischemia, congestive heart failure, electrolyte abnormality, and anxiety. EKG will be obtained to assess for cardiac dysrhythmia and cardiac ischemia. Chest x-ray will be obtained to assess for congestive heart failure and pneumonia. CBC will be obtained to assess for leukocytosis and anemia. Basic metabolic profile will be obtained to assess for electrolyte abnormality and renal function. BNP will be obtained to assess for congestive heart failure. High-sensitivity troponin will be obtained to assess for cardiac ischemia. 2-hour repeat high-sensitivity troponin will be obtained to assess for ongoing cardiac ischemia. D-dimer will be obtained to assess for pulmonary embolism. History & Record Review Discussion w/independent historian: Patient and Family Additional record(s) reviewed:: Prior labs Lab Data Attestation: I reviewed the patient's lab results. Lab results narrative: CBC was reviewed. There is a leukocytosis of 23.7. Hemoglobin was 5.0 and hematocrit was 16.2. Platelets were normal. Basic metabolic profile was reviewed. Potassium was slightly elevated at 5.6. BUN was elevated at 108 and creatinine was elevated at 2.18. These are increased from previous results. High-sensitivity troponin was reviewed and was elevated at 100. BNP was reviewed and was 529.8. This is improved from previous result. PT with INR and PTT were reviewed. Pro time was 74.5 and INR was 8.8. PTT was normal at 35.6. D-dimer was reviewed and was elevated at 1.75. 2-hour repeat high-sensitivity troponin was reviewed and was elevated at 101. Serum lactate was reviewed and was elevated at 2.9. Labs: Laboratory Results - last 24 hr 06/21/24 06/21/24 06/21/24 07:50 09:50 10:15 WBC 23.7 H RBC 1.72 L Hgb 5.0 L* Hct 16.2 L MCV 94.2 MCH 29.1 MCHC 30.9 L RDW Std Deviation 55.5 H RDW Coeff of Linda 16.7 H Plt Count 347 MPV 10.9 Neut % (Auto) Not Reportable Absolute Neuts (auto) 21.3 H Absolute Lymphs (auto) 0.95 Total Counted 100 Neutrophils % (Manual) 89 H Band Neutrophils % 1 Lymphocytes % (Manual) 4 L Monocytes % (Manual) 3 Eosinophils % (Manual) 1 Metamyelocytes % 2 H Diff Path Review May foll Toxic Vacuolation 1+ Platelet Estimate ADEQUATE Polychromasia 1+ Anisocytosis 1+ Ovalocytes 1+ Acanthocytes (Spur) 1+ PT 74.5 H INR 8.8 H* APTT 35.6 D-Dimer Quant (PE/DVT) 1.75 H* Sodium 137 Potassium 5.6 H Chloride 102 Carbon Dioxide 27.0 Anion Gap 8 BUN 108 H* Creatinine 2.82 H Estim Creat Clear Calc 16.96 Est GFR (MDRD) Af Amer 21 L Est GFR (MDRD) Non-Af 17 L BUN/Creatinine Ratio 38.3 H Glucose 187 H Lactic Acid Calcium 8.5 Troponin I High Sens 100 H B-Natriuretic Peptide 529.8 H Urine Color Yellow Urine Clarity Clear Urine pH 6.0 Ur Specific [place] 1.010 Urine Protein Negative Urine Glucose (UA) Normal Urine Ketones Negative Urine Occult Blood Negative Urine Nitrite Negative Urine Bilirubin Negative Urine Urobilinogen Normal Ur Leukocyte Esterase Negative Urine RBC 0 SEEN Urine WBC 0 SEEN Ur Squamous Epith Cells 0 SEEN Urine Bacteria 0 SEEN Urine Mucus 0 SEEN Blood Type B NEGATIVE Antibody Screen NEGATIVE Crossmatch See Detail 06/21/24 10:53 WBC RBC Hgb Hct MCV MCH MCHC RDW Std Deviation RDW Coeff of Linda Plt Count MPV Neut % (Auto) Absolute Neuts (auto) Absolute Lymphs (auto) Total Counted Neutrophils % (Manual) Band Neutrophils % Lymphocytes % (Manual) Monocytes % (Manual) Eosinophils % (Manual) Metamyelocytes % Diff Path Review Toxic Vacuolation Platelet Estimate Polychromasia Anisocytosis Ovalocytes Acanthocytes (Spur) PT INR APTT D-Dimer Quant (PE/DVT) Sodium Potassium Chloride Carbon Dioxide Anion Gap BUN Creatinine Estim Creat Clear Calc Est GFR (MDRD) Af Amer Est GFR (MDRD) Non-Af BUN/Creatinine Ratio Glucose Lactic Acid 2.9 H* Calcium Troponin I High Sens 101 H B-Natriuretic Peptide Urine Color Urine Clarity Urine pH Ur Specific [place] Urine Protein Urine Glucose (UA) Urine Ketones Urine Occult Blood Urine Nitrite Urine Bilirubin Urine Urobilinogen Ur Leukocyte Esterase Urine RBC Urine WBC Ur Squamous Epith Cells Urine Bacteria Urine Mucus Blood Type Antibody Screen Crossmatch Radiography Chest X-Ray - ED: 2 View, Read by ED Physician, Read by Radiologist, Cardiomegaly and CHF (Mild) Diagnostic Testing: Clinical Impression(s) from Imaging Studies Chest X-Ray 06/21/24 08:06 IMPRESSION: Cardiomegaly with mild congestion. Reading Location: [facility] [place] and lateral chest x-ray was obtained. There are 2 views. On my independent interpretation, lung de leon show mild congestion. There is cardiomegaly. Bony thorax is normal. Radiologist also interpreted the x-ray and agrees. EKG Initial EKG: Attestation: I personally reviewed and interpreted this EKG as follows: Interpretation: Atrial Fibrillation (71) and Non-Specific ST Changes Comments: EKG was obtained. On my independent interpretation, shows atrial fibrillation with occasional PVC with a rate of 71. QRS interval was normal at 76 ms. QTc interval was normal at 402 ms. Boykin is normal. There are nonspecific ST-T wave changes noted. Prior EKG tracings: available for review Prior: Unchanged (06/07/2024) Management Discussion w/another healthcare provider: Hospitalist and Hospitality Director Treatment and Re-Evaluation :: Patient was given an albuterol aerosol. Patient was given calcium, dextrose, and insulin for her hyperkalemia. Patient was given IV vitamin K. Patient was given IV fluids. Patient was given a bolus of Protonix. Patient was typed and crossmatched for 2 units of packed red blood cells. Patient was started on IV antibiotics because she triggered sepsis. Case was discussed with Dr. Jones. He will follow the patient to the hospital. Case was discussed with Dr. Licona. He will admit the patient to ICU. Patient and family understood and were agreeable with the plan. All questions were answered. Critical Care Time Critical Care Time: Yes Critical care time (excluding procedures): 30-74 minutes (39), Including time spent:, Discussing w/Patient &/or Family/Security Researcher, Discussing w/Consultants, Arranging Admission or Transfer and Performing Direct Patient Care at Bedside Discharge Plan Dx/Rx/DC Orders Clinical Impression: Gastrointestinal bleeding, upper, Longstanding persistent atrial fibrillation, Dyspnea, Anemia, Sepsis, Warfarin-induced coagulopathy, Elevated troponin Disposition Disposition: Acute Care Hospital [facility]
[2024-06-21] MEDS: 0.9% Normal Saline (500mL Bag) 500 ML 1000 ML IV (08:06)
--- NOTE | 2024-06-21 08:06 | RAD_ITS ---
EXAM: XR Chest, 2 Views CLINICAL INDICATION: TECHNIQUE: Frontal and lateral views of the chest. COMPARISON: No relevant prior studies available. FINDINGS: LUNGS AND PLEURAL SPACES: See below. HEART: Cardiomegaly with mild congestion. MEDIASTINUM: Unremarkable. Normal mediastinal contour. BONES/JOINTS: Unremarkable. No acute fracture. TUBES, LINES AND DEVICES: Left-sided cardiac pacemaker. RAD/Chest PA and Lateral IMPRESSION: Cardiomegaly with mild congestion. Reading [facility]
[2024-06-21 08:23] LABS: Hematocrit 16.2 % (37-47); Mean Corp Hgb Conc 30.9 g/dL (32-36); Mean Corpuscular Hgb 29.1 pg (27.0-32.0); Mean Corpuscular Volume 94.2 fL (81-99); Mean Platelet Vol. 10.9 fl (6.2-12.0); POSITIVE COUNT YES; POSITIVE DIFFERENTIAL YES; POSITIVE MORPHOLOGY YES; Platelet Count 347 K/mm3 (150-450); RBC Distribution Width CV 16.7 % (11.6-14.6); RBC Distribution Width SD 55.5 fl (35.1-43.9); Red Blood Count 1.72 M/mm3 (4.2-5.4); White Blood Count 23.7 K/mm3 (4.4-11.0)
[2024-06-21 08:50] LABS: Partial Thromboplast Time 35.6 Seconds (24.1-36.2); Prothrombin Time (Protime)PT. 74.5 SECONDS (11.7-14.9)
[2024-06-21 09:01] LABS: Differential Indicated MANUAL DIFF
[2024-06-21 09:02] LABS: Anion Gap 8 (5-15); BUN 108 mg/dL (7-18); BUN/Creat Ratio 38.3 RATIO (10-20); Calcium,Total 8.5 mg/dL (8.5-10.1); Chloride 102 mmol/L (98-107); Creatinine, Serum 2.82 mg/dL (0.55-1.02); EST Glomerular Filtration Rate 17 mL/min (>60); Est Glom Filt Rate - Afr Amer 21 mL/min (>60); Estimated Creatinine Clearance 16.96 ml/min; Glucose 187 mg/dL (74-106); Potassium 5.6 mmol/L (3.5-5.1); Sodium Level 137 mmol/L (136-145); Troponin-I HS (w/2H Reflex) 100 pg/mL (3.0-54.0)
[2024-06-21 09:19] LABS: D-Dimer Quantitative (DVT/PE) 1.75 FEU/ug/m (0.27-0.49); International Normalized Ratio 8.8
--- NOTE | 2024-06-21 09:26 | ED.RN ---
when notified of need for sepsis fluid resuscitation, dr. worthy states that pt has pitting edema in [place] legs.
[2024-06-21 09:33] LABS: BNP,B-Type NATRIURETIC PEPTIDE 529.8 pg/mL (0-100)
[2024-06-21] MEDS: Albuterol 2.5 MG/3 ML VIAL.NEB. INHALATION (09:34)
[2024-06-21] MEDS: 0.9% Normal Saline (1000mL) 1,000 ML 1000 ML IV (10:01)
[2024-06-21] MEDS: Insulin Lispro 10 UNIT in Syringe 0 ML 6 UNIT IV (10:01)
[2024-06-21] MEDS: Calcium Gluconate IV 3 GM in Syringe 1 EACH IV (10:01)
[2024-06-21] MEDS: Dextrose 10%-Water 250 ML 999 ML IV (10:01)
[2024-06-21] MEDS: Pantoprazole Sodium 80 MG in 0.9% Normal Saline (50mL Bag) 15 ML 420 MG IV BOLUS (10:08)
[2024-06-21 10:13] LABS: Absolute Lymphocyte Count 0.95 X10^3/uL (0.83-4.51); Absolute Neutrophil Count 21.3 X10^3/uL (2.0-7.7)
[2024-06-21 10:14] LABS: Anisocytosis 1+; Eosinophil 1 % (0-5); Lymphocyte 4 % (19-41); Metamyelocyte 2 % (0-1); Monocyte 3 % (0-10); Neutrophil-Band 1 % (0-5); Neutrophil-Segmented 89 % (47-70); Platelet Estimate ADEQUATE (ADEQ); Polychromasia 1+; Total Cells Counted 100 (MANUAL DIFF); Vacuolated Cells 1+
[2024-06-21 10:15] LABS: Acanthocytes 1+; Ovalocyte 1+
[2024-06-21 10:20] LABS: Reflex Troponin-HS? (from REC) Y
[2024-06-21] MEDS: Phytonadione (Vit K) 5 MG in 0.9% Normal Saline (50mL Bag) 50 ML 150 MG IV (10:23)
[2024-06-21 10:33] LABS: Bacteria 0 SEEN /hpf (None Seen); Mucous, Urine 0 SEEN /hpf (<or=2+); Red Blood Cells-Urine 0 SEEN /hpf (0-5); Squamous Epithelial Cells - UA 0 SEEN /hpf (5-10); White Blood Cells 0 SEEN /hpf (0-5)
[2024-06-21 10:38] LABS: Color, Urine Yellow (Yellow); Glucose, Dipstick Normal (Normal); Ketone-Dipstick Negative (Negative); Leukocyte Esterase-Dipstick Negative /ul (Negative); Nitrite-Dipstick Negative (Negative); Occult Blood-Urine Negative /ul (Negative); Protein-Dipstick Negative (Negative); Urine Bilirubin Dipstick Negative (Negative); Urine Clarity Clear (Clear); Urine Urobilinogen Normal (Normal)
--- NOTE | 2024-06-21 11:01 | PCM.HP.STD ---
HPI - General General Date of Service: 06/21/24 Chief Complaint: Shortness of breath and generalized weak HPI Narrative Patient is a 78-year-old lady who underwent rash shoulder total reverse arthroplasty on account of rotator cuff tear on 06/06/2024 presented back to the emergency department with progressive shortness of breath and and weakness. Patient admitted to symptoms 13 days after her surgery. She has since noticed increasing shortness of breath with minimal activity. She also did notice swelling involving both lower extremities. Patient did admit to chills but denied any fever. Denied being around any sick contact. In view of worsening symptoms patient presented to the emergency department. In the emergency department patient was found to have elevated WBC, with lactic acidosis. Patient was also found to be hypotensive with systolic blood pressure in the 80s checks x-ray obtained did not show any infiltrate however did show vascular congestion. Hemoglobin came back at 5.0. On further questioning patient admitted to having experienced dark tarry stools. Of note patient is on warfarin for persistent A-fib. The vehicle dynamics engineer on-call was notified from the ED patient admitted to the intensive care unit for further management [facility] Medical History Wears glasses Post-menopausal Anxiety Arthritis Back pain Syncope Former smoker Shortness of breath on exertion Hoarseness Hypertension History of stress test History of echocardiogram Cardiology follow-up encounter History of atrial fibrillation Chronic combined systolic and diastolic CHF (congestive heart failure) Hypertrophic cardiomyopathy 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 Longstanding persistent atrial fibrillation Hypothyroidism Secondary pulmonary arterial hypertension Vocal cord paralysis, unilateral complete Sick sinus syndrome Hyperlipidemia Left ventricular diastolic dysfunction FH: sudden cardiac (SCD) Home Medications ?Medication ?Instructions ?Recorded ?Last Taken ?Type aspirin 81 mg chewable tablet 81 mg PO DAILY@0800 01/22/15 06/05/24 History triamcinolone acetonide 55 mcg 1 spray NS PRN PRN Allergies 09/15/17 Unknown History nasal spray aerosol cholecalciferol (vitamin D3) 25 1,000 unit PO DAILY 07/24/18 06/01/24 History mcg (1,000 unit) capsule levothyroxine 100 mcg tablet 100 mcg PO Q OTHER DAY 07/24/18 06/04/24 History levothyroxine 75 mcg tablet 75 mcg PO Q OTHER DAY 07/24/18 06/06/24 04:50 History vit C 250 mg-vit E 90 mg-zinc 40 1 tab PO DAILY 07/24/18 06/01/24 History mg-copper 1 [id number] capsule (PreserVision AREDS-2) albuterol sulfate 90 mcg/actuation 2 puff inhalation Q6H PRN 10/14/20 06/06/24 History aerosol inhaler shortness of breath or wheezing lactobacillus combination no.8 3 3,000 mmu cells PO DAILY 10/14/20 06/01/24 History billion cell capsule (Adult Probiotic) magnesium 200 mg tablet 200 mg PO DAILY 09/21/21 06/01/24 History [id number]-[id number]-[id number]-php-dhg-gdoy-sterols 1 cap PO DAILY 11/01/22 06/01/24 History 375 mg-100 mg-36 mg-54 mg capsule (Glucosamine Chondroitin PLUS) Handicap Parking Placard #1 ea 06/26/23 Unknown Rx warfarin 2.5 mg tablet 2.5 mg PO SUFRSA 03/19/24 06/02/24 History warfarin 5 mg tablet 5 mg PO MOTUWETH 03/19/24 06/03/24 History verapamil 120 mg tablet,extended 120 mg PO QHS #90 tabs 05/06/24 06/05/24 Rx release acetaminophen 500 mg tablet 1,000 mg (2 x 500 mg) PO Q8 30 06/09/24 Unknown Rx days #180 tabs furosemide 40 mg tablet 40 mg PO DAILY #30 tabs 06/09/24 Unknown Rx oxycodone 5 mg tablet 5 - 10 mg (1 - 2 x 5 mg) PO Q6H 7 06/09/24 Unknown Rx days #28 tabs sacubitril 24 mg-valsartan 26 mg 1 tab PO BID #180 tabs 06/11/24 Unknown Rx tablet (Entresto) Allergy/AdvReac Type Severity Reaction Status Date / Time metoprolol Allergy Severe Abdominal Verified 06/21/24 07:46 pain, poor rate control amoxicillin AdvReac Rash Verified 06/21/24 07:46 lisinopril AdvReac Dry cough Verified 06/21/24 07:46 risedronate sodium (From AdvReac Rash Verified 06/21/24 07:46 Actonel) Family History Mother Cancer breast Sister Cancer breast and malignant melanoma Diabetes Brother Arrhythmia Surgical History History of laryngoscopy Hx of hemorrhoidectomy History of colonoscopy History of radiofrequency ablation procedure for cardiac arrhythmia (1999) History of hysterectomy Presence of permanent cardiac pacemaker (01/04/12) History of left heart catheterization (03/09/15) History of implantable cardiac defibrillator (ICD) History of dental surgery Hx of LASIK History of vocal cord surgery Social History Smoking Status: Former smoker how long ago did patient quit smokin years ago alcohol intake: never substance use type: does not use caffeine: No ROS ROS Narrative GENERAL: Generalized weakness HEENT: denies headache, sinus congestion, or drainage, dysphagia RESPIRATORY: , shortness of breath, dyspnea on exertion CARDIAC: orthopnea, PND GASTROINTESTINAL: Melena GENITOURINARY: denies dysuria, urgency, frequency, heamaturia EXTREMITY: swelling MUSCULOSKELETAL: denies current joint pain or tenderness NEUROLOGIC: denies focal numbness, weakness, tingling HEMATOLOGIC: denies easy bruising and/or hemorrhage INTEGUMENT: denies rashes PSYCHIATRIC: denies suicidal or homicidal ideation Vital Signs Vital Signs Vital Signs: 06/21/24 07:46 06/21/24 07:51 06/21/24 07:53 Temperature 96.3 F L 96.3 F L Temperature Source Temporal Temporal Pulse Rate 69 74 76 Respiratory Rate 20 H 18 23 H Respiratory Effort Respiratory Depth Respiratory Pattern Blood Pressure 85/40 L 85/40 L Blood Pressure Mean 55 55 Pulse Ox 100 96 Oxygen Delivery Method Room Air Room Air Oxygen Flow Rate (L/min) 06/21/24 07:57 06/21/24 08:00 06/21/24 08:15 Temperature Temperature Source Pulse Rate 74 Respiratory Rate 22 H Respiratory Effort Short of Breath Respiratory Depth Normal Respiratory Pattern Normal Blood Pressure 70/41 L 69/47 L Blood Pressure Mean 51 55 Pulse Ox Oxygen Delivery Method Room Air Oxygen Flow Rate (L/min) 06/21/24 08:15 06/21/24 08:30 06/21/24 08:45 Temperature Temperature Source Pulse Rate 65 65 70 Respiratory Rate 24 H 22 H 17 Respiratory Effort Respiratory Depth Respiratory Pattern Blood Pressure 69/47 L 70/36 L 75/55 L Blood Pressure Mean 55 48 63 Pulse Ox Oxygen Delivery Method Oxygen Flow Rate (L/min) 06/21/24 08:51 06/21/24 09:00 06/21/24 09:15 Temperature 98.3 F Temperature Source Temporal Pulse Rate 74 66 67 Respiratory Rate 15 17 14 Respiratory Effort Respiratory Depth Respiratory Pattern Blood Pressure 69/36 L 58/31 L 69/36 L Blood Pressure Mean 47 39 46 Pulse Ox 95 100 Oxygen Delivery Method Nasal Cannula Oxygen Flow Rate (L/min) 2 06/21/24 09:27 06/21/24 09:30 06/21/24 09:35 Temperature 98.6 F Temperature Source Oral Pulse Rate 69 75 71 Respiratory Rate 19 H 15 16 Respiratory Effort Respiratory Depth Respiratory Pattern Normal Blood Pressure 79/49 L 79/49 L Blood Pressure Mean 59 60 Pulse Ox 95 Oxygen Delivery Method Room Air Oxygen Flow Rate (L/min) 06/21/24 09:42 06/21/24 09:45 06/21/24 09:57 Temperature 98.1 F 98 F Temperature Source Oral Temporal Pulse Rate 71 84 71 Respiratory Rate 18 23 H 18 Respiratory Effort Respiratory Depth Respiratory Pattern Blood Pressure 73/63 L 73/63 L 81/51 L Blood Pressure Mean 66 68 61 Pulse Ox 95 96 Oxygen Delivery Method Room Air Nasal Cannula Oxygen Flow Rate (L/min) 06/21/24 10:00 06/21/24 10:12 06/21/24 10:15 Temperature 97.9 F Temperature Source Temporal Pulse Rate 77 Respiratory Rate 19 H Respiratory Effort Respiratory Depth Respiratory Pattern Blood Pressure 81/51 L 73/33 L 73/33 L Blood Pressure Mean 60 46 45 Pulse Ox 95 Oxygen Delivery Method Nasal Cannula Oxygen Flow Rate (L/min) 06/21/24 10:27 Temperature 97.6 F L Temperature Source Temporal Pulse Rate 74 Respiratory Rate 18 Respiratory Effort Respiratory Depth Respiratory Pattern Blood Pressure 93/60 Blood Pressure Mean 71 Pulse Ox 99 Oxygen Delivery Method Nasal Cannula Oxygen Flow Rate (L/min) Weight Weight: 78.7 kg Body Mass Index (BMI) 29.6 Physical Exam Narrative GENERAL: Frail looking HEENT: Atraumatic; normocephalic EYES; Anicteric, pallor of the conjunctiva NECK; supple, normal thyroid, RESPIRATORY: Diminished to auscultation CARDIOVASCULAR: Irregularly irregular GI: soft, normoactive bowel sounds, : No Renal angle tenderness; EXTREMITIES: Bipedal edema edema, no clubbing, MUSCULOSKELETAL: no muscle wasting NEURO: Awake; no lateralizing signs. SKIN: No Rash PSYCH; Flat affect Results Lab / Micro Data 06/21/24 07:50 06/21/24 07:50 Labs: Laboratory Results - last 24 hr 06/21/24 07:50: WBC 23.7 H, RBC 1.72 L, Hgb 5.0 L*, Hct 16.2 L, MCV 94.2, MCH 29.1, MCHC 30.9 L, RDW Std Deviation 55.5 H, RDW Coeff of [place] 16.7 H, Plt Count 347, MPV 10.9, Neut % (Auto) Not Reportable, Absolute Neuts (auto) 21.3 H, Absolute Lymphs (auto) 0.95, Total Counted 100, Neutrophils % (Manual) 89 H, Band Neutrophils % 1, Lymphocytes % (Manual) 4 L, Monocytes % (Manual) 3, Eosinophils % (Manual) 1, Metamyelocytes % 2 H, Diff Path Review May foll, Toxic Vacuolation 1+, Platelet Estimate ADEQUATE, Polychromasia 1+, Anisocytosis 1+, Ovalocytes 1+, Acanthocytes (Spur) 1+, PT 74.5 H, INR 8.8 H*, APTT 35.6, D-Dimer Quant (PE/DVT) 1.75 H*, Sodium 137, Potassium 5.6 H, Chloride 102, Carbon Dioxide 27.0, Anion Gap 8, BUN 108 H*, Creatinine 2.82 H, Estim Creat Clear Calc 16.96, Est GFR (MDRD) Af Amer 21 L, Est GFR (MDRD) Non-Af 17 L, BUN/Creatinine Ratio 38.3 H, Glucose 187 H, Calcium 8.5, Troponin I High Sens 100 H, B-Natriuretic Peptide 529.8 H 06/21/24 09:50: Blood Type B NEGATIVE, Antibody Screen NEGATIVE, Crossmatch See Detail 06/21/24 10:15: Urine Color Yellow, Urine Clarity Clear, Urine pH 6.0, Ur Specific [place] 1.010, Urine Protein Negative, Urine Glucose (UA) Normal, Urine Ketones Negative, Urine Occult Blood Negative, Urine Nitrite Negative, Urine Bilirubin Negative, Urine Urobilinogen Normal, Ur Leukocyte Esterase Negative, Urine RBC 0 SEEN, Urine WBC 0 SEEN, Ur Squamous Epith Cells 0 SEEN, Urine Bacteria 0 SEEN, Urine Mucus 0 SEEN Micro: Microbiology 06/21/24 09:40 Stool Stool Occult Blood (AALIYAH) - Final Imaging Radiology Impression Chest X-Ray 06/21/24 08:06 IMPRESSION: Cardiomegaly with mild congestion. Reading Location: [facility] Assessment & Plan Assessment/Plan (1) Warfarin-induced coagulopathy: (2) Sepsis: (3) Anemia: (4) Gastrointestinal bleeding, upper: (5) Chronic combined systolic and diastolic CHF (congestive heart failure): PLAN: Plan Patient is a 78-year-old lady who underwent rash shoulder total reverse arthroplasty on account of rotator cuff tear on 06/06/2024 presented back to the emergency department with progressive shortness of breath and and weakness 1.Sepsis ? Suspected to be secondary to healthcare acquired pneumonia patient presented with progressive generalized weakness dyspnea chills but no fever. Was found to have elevated WBC count as well as lactic acidosis. Patient has been admitted to the intensive care unit. Patient did not receive IV fluid resuscitation per protocol given her concomitant congestive heart failure. Patient was started on broad-spectrum antibiotic therapy after cultures have been obtained also did request for viral respiratory panel and COVID assay. Response to therapy being monitored with serial lactic acid levels 2. Acute blood loss anemia ? Suspected to be secondary to upper GI bleed exacerbated by use of systemic anticoagulation with warfarin. Patient was typed and crossmatched from the emergency department and order was given for patient to be transfused with 2 unit PRBC subsequently started on Protonix drip after receiving Protonix bolus. Admitted to the intensive care unit subsequent monitoring with serial H&H ordered consult placed to Dr. Jones from the ED 3. Acute on chronic kidney disease stage III ? Patient did receive IV fluid resuscitation subsequent monitoring ordered 4. Hyperkalemia ? Secondary to patient worsening kidney function repeated potassium levels and if still elevated an order will be given for patient to receive Kayexalate 5. Coumadin induced coagulopathy ? Patient INR on admission was 8.8 and order was given for patient to receive vitamin K 6. Acute on chronic congestive heart failure with reduced ejection fraction ? Patient echo from 04/03/2024 demonstrated Normal LV size. The estimated ejection fraction is 40 %. There is moderate global hypokinesis of the left ventricle. The left atrium is severely enlarged. Pulmonary artery systolic pressure is 48 mmHg. [place] : Akinetic. Anterior [place] : Hypokinetic Mid-Anterior : Mildly hypokinetic ? Patient admitted to monitored bed monitoring strict input and output patient is on furosemide resumed cautiously given patient relatively low blood pressure 7. Hypothyroidism ? Patient is on levothyroxine home dose continued 8. Persistent A-fib ? Rate controlled on systemic anticoagulation with warfarin which is being held given her presentation 9. Dyslipidemia ?Patient is on statin therapy, continued at home dose 10. 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 On account of rotator cuff injury 11. Sick sinus syndrome ? Status post pacemaker placement DVT prophylaxis ? Patient already on Coumadin with supratherapeutic INR Advance planning; did discuss with the patient and family regarding advanced directives as well as CODE STATUS. Did explain the various scenarios involved ( FULL CODE, DNR CCA, DNR CCA with no intubation, and DNR CC and what each meant) patient elected to be DNR CCA no intubation. Order was placed. Time spent on discussion 16 minutes. Prophylaxis Charges/Coding Multi Select Codes Visit Charges Visit Charges: 32582 Init Hosp Hospitalists' Procedures Procedures: 07244 Advncd Care Plan 30 Min
[2024-06-21 11:46] LABS: Lactic Acid 2.9 mmol/L (0.4-1.9); Troponin-I HS 101 pg/mL (3.0-54.0)
[2024-06-21] MEDS: Cefepime HCl 2 GM in 0.9% Normal Saline (100mL MB+) 100 ML IV (12:10)
[2024-06-21] MEDS: Vancomycin HCl 2,000 MG in 0.9% Normal Saline (500mL Bag) 500 ML 250 MG IV (12:48)
[2024-06-21 13:03] LABS: Bacteria 0 SEEN /hpf (None Seen); Mucous, Urine 0 SEEN /hpf (<or=2+)
[2024-06-21 13:14] LABS: Color, Urine Straw (Yellow); Glucose, Dipstick Normal (Normal); Ketone-Dipstick Negative (Negative); Leukocyte Esterase-Dipstick 25 /ul (Negative); Nitrite-Dipstick Negative (Negative); Occult Blood-Urine 10 /ul (Negative); Protein-Dipstick 15 mg/dl (Negative); Specific Gravity, Urine 1.015 (1.002-1.030); Urine Bilirubin Dipstick Negative (Negative); Urine Clarity Sl. Cloudy (Clear); Urine Urobilinogen Normal (Normal)
--- NOTE | 2024-06-21 13:18 | EX.PCM.CONCC ---
Assessment & Plan Assessment/Plan (1) Warfarin-induced coagulopathy: PLAN: Plan RECOMMENDATIONS: 1. Continue antibiotics while awaiting culture workup. 2. Vitamin K administration as ordered. 3. Transfuse blood products as ordered. 4. PPI therapy. 5. Gastroenterology consultation is pending. 6. Gentle IV fluid resuscitation. 7. Recheck lactate level. IMPRESSIONS: 1. Sepsis While the patient initially presented to the hospital with an elevated white blood cell count along with evidence of blood loss anemia, compounded by lactic acidemia and acute kidney injury, no focal source of infection has yet to be identified. There were no findings on chest imaging to suggest pneumonia. I think it is far more likely that the patient's vital sign and laboratory abnormalities are likely the consequence of Coumadin induced coagulopathy and subsequent blood loss anemia, leading to hypotension. However, it is certainly reasonable to continue empiric antibiotics, while awaiting culture workup. 2. Coumadin-induced coagulopathy with anemia Plan to transfuse blood products as ordered. Gastroenterology consultation to be obtained. Vitamin K has been administered. Check H&H posttransfusion and continue PPI therapy. 3. Troponin elevation/history of atrial fibrillation/hypertrophic cardiomyopathy with reduced ejection fraction Likely secondary to demand ischemia in the setting of numbers 1 and 2. 4. Acute on chronic kidney disease Most likely prerenal in etiology in the setting of numbers 1 and 2. Anticipate improvement with stabilization of hemodynamics. Continue to monitor urine output. No current indication for renal replacement therapy. 5. History of hypothyroidism/hyperlipidemia/recent shoulder surgery Complicates care, management, recovery and prognosis. Continue supportive measures as noted above. This note was generated with [employer] dictation software. It may contain incorrect words, spelling, and punctuation that were not noted in checking the note before signing. HPI Consult Data Date of Consult: 06/21/24 HPI Narrative Reason for Consultation: Blood loss anemia HPI Narrative: The patient is a 78-year-old female, with a history as outlined below, who presented to the emergency department on June 21 after awakening early this morning with generalized malaise and weakness. In addition, the patient reported that up on trying to get up that she felt short of breath. The patient is currently followed in the cardiology clinic due to a history of atrial fibrillation and hypertrophic cardiomyopathy with reduced ejection fraction status post ICD. The patient is systemically anticoagulated on Coumadin. On June 06, the patient underwent a right reverse total shoulder arthroplasty. Prior to the surgical procedure, the patient's INR was noted to be elevated at 4.1. Postprocedure, the patient reported that she resumed her normal, outpatient Coumadin regimen, as prescribed by cardiology. On presentation to the emergency department, the patient was documented to be afebrile with a presenting blood pressure of 85/40 mmHg. Laboratory evaluation was notable for a white blood cell count of 24,000 with a hemoglobin of 5.0 g/dL and normal platelet count. Previously, on June 13, the patient was noted to have a hemoglobin of 10.7 g/dL. Coagulation profile was notable for an elevated INR at 8.8. Chemistry profile was notable for a potassium of 5.6, BUN of 108 and creatinine of 2.82. Lactate was elevated at 2.9. Troponin was increased at 100 with a BNP of 529. Urine analysis was unremarkable. Chest x-ray demonstrated cardiomegaly without any acute cardiopulmonary process. Blood and urine cultures were collected. The patient was ordered to receive vitamin K along with antimicrobials and IV fluids. She was typed and crossed for 2 units of packed red blood cells. Ironically, however, stool for occult blood was negative. Gastroenterology consultation was placed. The patient was subsequently admitted to the medical intensive care unit for further management. [facility] Medical History Wears glasses Post-menopausal Anxiety Arthritis Back pain Syncope Former smoker Shortness of breath on exertion Hoarseness Hypertension History of stress test History of echocardiogram Cardiology follow-up encounter History of atrial fibrillation Chronic combined systolic and diastolic CHF (congestive heart failure) Hypertrophic cardiomyopathy 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 Longstanding persistent atrial fibrillation Hypothyroidism Secondary pulmonary arterial hypertension Vocal cord paralysis, unilateral complete Sick sinus syndrome Hyperlipidemia Left ventricular diastolic dysfunction FH: sudden cardiac (SCD) Home Medications ?Medication ?Instructions ?Recorded ?Last Taken ?Type aspirin 81 mg chewable tablet 81 mg PO DAILY@0800 01/22/15 06/05/24 History triamcinolone acetonide 55 mcg 1 spray NS PRN PRN Allergies 09/15/17 Unknown History nasal spray aerosol cholecalciferol (vitamin D3) 25 1,000 unit PO DAILY 07/24/18 06/01/24 History mcg (1,000 unit) capsule levothyroxine 100 mcg tablet 100 mcg PO Q OTHER DAY 07/24/18 06/04/24 History levothyroxine 75 mcg tablet 75 mcg PO Q OTHER DAY 07/24/18 06/06/24 04:50 History vit C 250 mg-vit E 90 mg-zinc 40 1 tab PO DAILY 07/24/18 06/01/24 History mg-copper 1 [id number]-lbgvjd capsule (PreserVision AREDS-2) albuterol sulfate 90 mcg/actuation 2 puff inhalation Q6H PRN 10/14/20 06/06/24 History aerosol inhaler shortness of breath or wheezing lactobacillus combination no.8 3 3,000 mmu cells PO DAILY 10/14/20 06/01/24 History billion cell capsule (Adult Probiotic) magnesium 200 mg tablet 200 mg PO DAILY 09/21/21 06/01/24 History ewtu-eyxti-no1-zma-ooc-subo-sterols 1 cap PO DAILY 11/01/22 06/01/24 History 375 mg-100 mg-36 mg-54 mg capsule (Glucosamine Chondroitin PLUS) Handicap Parking Placard #1 ea 06/26/23 Unknown Rx warfarin 2.5 mg tablet 2.5 mg PO SUFRSA 03/19/24 06/02/24 History warfarin 5 mg tablet 5 mg PO MOTUWETH 03/19/24 06/03/24 History verapamil 120 mg tablet,extended 120 mg PO QHS #90 tabs 05/06/24 06/05/24 Rx release acetaminophen 500 mg tablet 1,000 mg (2 x 500 mg) PO Q8 30 06/09/24 Unknown Rx days #180 tabs furosemide 40 mg tablet 40 mg PO DAILY #30 tabs 06/09/24 Unknown Rx oxycodone 5 mg tablet 5 - 10 mg (1 - 2 x 5 mg) PO Q6H 7 06/09/24 Unknown Rx days #28 tabs sacubitril 24 mg-valsartan 26 mg 1 tab PO BID #180 tabs 06/11/24 Unknown Rx tablet (Entresto) Allergy/AdvReac Type Severity Reaction Status Date / Time metoprolol Allergy Severe Abdominal Verified 06/21/24 07:46 pain, poor rate control amoxicillin AdvReac Rash Verified 06/21/24 07:46 lisinopril AdvReac Dry cough Verified 06/21/24 07:46 risedronate sodium (From AdvReac Rash Verified 06/21/24 07:46 Actonel) Family History Mother Cancer breast Sister Cancer breast and malignant melanoma Diabetes Brother Arrhythmia Surgical History History of laryngoscopy Hx of hemorrhoidectomy History of colonoscopy History of radiofrequency ablation procedure for cardiac arrhythmia (1999) History of hysterectomy Presence of permanent cardiac pacemaker (01/04/12) History of left heart catheterization (03/09/15) History of implantable cardiac defibrillator (ICD) History of dental surgery Hx of LASIK History of vocal cord surgery Social History Smoking Status: Former smoker how long ago did patient quit smokin years ago alcohol intake: never substance use type: does not use caffeine: No ROS ROS Narrative 10 systems were reviewed with pertinent positives as noted in the HPI above. Physical Exam Const alert and no apparent distress Constitutional Narrative: Family is present at the bedside. The patient is somewhat pale in appearance. General Appearance: cooperative HEENT normocephalic and head/scalp atraumatic Eyes PERRL, EOMs intact bilaterally and conjunctivae normal Neck supple General: trachea midline Chest inspection of chest normal Resp normal respiratory effort Auscultation: Negative for rales, rhonchi or wheezes Cardio S1 normal heart sound and S2 normal heart sound Rhythm: abnormal rhythm GI soft to palpation and non-tender Extremity General Extremity: edema; Negative for clubbing Skin no rashes or lesions noted Neuro CN's II-XII intact bilaterally, moves all extremities and no focal motor deficits Psych cooperative and affect normal Lab / Micro Data 06/21/24 07:50 06/21/24 07:50 Labs: Laboratory Results - last 24 hr 06/21/24 07:50: WBC 23.7 H, RBC 1.72 L, Hgb 5.0 L*, Hct 16.2 L, MCV 94.2, MCH 29.1, MCHC 30.9 L, RDW Std Deviation 55.5 H, RDW Coeff of Linda 16.7 H, Plt Count 347, MPV 10.9, Neut % (Auto) Not Reportable, Absolute Neuts (auto) 21.3 H, Absolute Lymphs (auto) 0.95, Total Counted 100, Neutrophils % (Manual) 89 H, Band Neutrophils % 1, Lymphocytes % (Manual) 4 L, Monocytes % (Manual) 3, Eosinophils % (Manual) 1, Metamyelocytes % 2 H, Diff Path Review May foll, Toxic Vacuolation 1+, Platelet Estimate ADEQUATE, Polychromasia 1+, Anisocytosis 1+, Ovalocytes 1+, Acanthocytes (Spur) 1+, PT 74.5 H, INR 8.8 H*, APTT 35.6, D-Dimer Quant (PE/DVT) 1.75 H*, Sodium 137, Potassium 5.6 H, Chloride 102, Carbon Dioxide 27.0, Anion Gap 8, BUN 108 H*, Creatinine 2.82 H, Estim Creat Clear Calc 16.96, Est GFR (MDRD) Af Amer 21 L, Est GFR (MDRD) Non-Af 17 L, BUN/Creatinine Ratio 38.3 H, Glucose 187 H, Calcium 8.5, Troponin I High Sens 100 H, B-Natriuretic Peptide 529.8 H 06/21/24 09:50: Blood Type B NEGATIVE, Antibody Screen NEGATIVE, Crossmatch See Detail 06/21/24 10:15: Urine Color Yellow, Urine Clarity Clear, Urine pH 6.0, Ur Specific [place] 1.010, Urine Protein Negative, Urine Glucose (UA) Normal, Urine Ketones Negative, Urine Occult Blood Negative, Urine Nitrite Negative, Urine Bilirubin Negative, Urine Urobilinogen Normal, Ur Leukocyte Esterase Negative, Urine RBC 0 SEEN, Urine WBC 0 SEEN, Ur Squamous Epith Cells 0 SEEN, Urine Bacteria 0 SEEN, Urine Mucus 0 SEEN 06/21/24 10:53: Lactic Acid 2.9 H*, Troponin I High Sens 101 H 06/21/24 12:57: Urine Color Straw, Urine Clarity Sl. Cloudy, Urine pH 6.0, Ur Specific [place] 1.015, Urine Protein 15 H, Urine Glucose (UA) Normal, Urine Ketones Negative, Urine Occult Blood 10 H, Urine Nitrite Negative, Urine Bilirubin Negative, Urine Urobilinogen Normal, Ur Leukocyte Esterase 25 H Micro: Microbiology 06/21/24 09:40 Stool Stool Occult Blood (AALIYAH) - Final Imaging Radiology Impression Chest X-Ray 06/21/24 08:06 IMPRESSION: Cardiomegaly with mild congestion. Reading [facility] Charges/Coding Visit Charges Inpatient E&M: 47306 Init Hosp L3
[2024-06-21 13:26] LABS: Red Blood Cells-Urine 0-5 SEEN /hpf (0-5); Squamous Epithelial Cells - UA 0-5 SEEN /hpf (5-10); White Blood Cells 0-5 SEEN /hpf (0-5)
[2024-06-21] MEDS: Acetaminophen 325 MG Tablet 650 MG PO ×2 (14:20→20:23)
--- NOTE | 2024-06-21 14:52 | PCM.RX.CS ---
Consult Antibiotic Management Pharmacy has been consulted to manage selected antibiotic: Vancomycin Type of Intervention Type of Consult: New start Suspected Infection Suspected Infection: Pneumonia Labs Labs: Sodium 137 mmol/L (136-145) 06/21/24 07:50 Potassium 5.6 mmol/L (3.5-5.1) H 06/21/24 07:50 Chloride 102 mmol/L (98-107) 06/21/24 07:50 Carbon Dioxide 27.0 mmol/L (21.0-32.0) 06/21/24 07:50 Anion Gap 8 (5-15) 06/21/24 07:50 BUN 108 mg/dL (7-18) H* 06/21/24 07:50 Creatinine 2.82 mg/dL (0.55-1.02) H 06/21/24 07:50 Est GFR (MDRD) Af Amer 21 mL/min (>60) L 06/21/24 07:50 Est GFR (MDRD) Non-Af 17 mL/min (>60) L 06/21/24 07:50 BUN/Creatinine Ratio 38.3 RATIO (10-20) H 06/21/24 07:50 Glucose 187 mg/dL (74-106) H 06/21/24 07:50 Microbiology Microbiology: Microbiology 06/21/24 13:07 Mucosa - Nose SARS-CoV-2, Influenza & RSV (PCR) - Final 06/21/24 09:40 Stool Stool Occult Blood (AALIYHA) - Final Pharmacy Plan for Drug Dosing Pharmacy Plan for Drug Dosing: NEW START IV VANCOMYCIN Consulting Physician: Monae Indication: pneumonia/sepsis Goal Trough: 15-20 mg/dL SrCr: 2.82 mg/dL CrCl: 16.7 mL/min Comments: loading dose of 2000mg given in ER 06/21 @ 1248 Vancomycin Dose: Will not schedule doses at this time, dose as CrCl <20mL/min. Order random level for 06/23/24 @ 0600 per policy. Pending Level: 06/23/24 @ 0600- random with AM labs Pharmacy Service will continue to monitor and adjust dosing as required.
[2024-06-21] MEDS: Phytonadione (Vit K1) 5 MG TABLET PO (14:57)
[2024-06-21 15:03] LABS: Reflex Lactate? Y
--- NOTE | 2024-06-21 15:08 | CASEMGMT ---
Care Management Face to Face with patient for initial transition planning/care coordination assessment in the ED.? This tag writer introduced self and role at [facility]. Patient alert and oriented. Patient willing to participate in assessment and is able to answer all questions appropriately.? Care providers, pharmacy, and demographics verified. Admitting Diagnosis: Anemia Other diagnosis history: h/o Afib, hypertension, arthritis PCP: may Specialists: ?candace Preferred Pharmacy: [facility] Insurance: ?medicare Prescription Benefit:?yes Living Will/HPOA: ?Reports to having both done, to bring in when able LNOK: sister Living Arrangements: Lives alone in a 1 story home.? Has had a friend staying with her post surgery.? Prior to surgery, was independent with ADLs and IADLs. Transportation: ?driving self prior to surgery DME: walker, bedside commode, grab bars in shower and toilet, bench and shower chair, blood pressure cuff, pulse ox HHC: none SNF/Rehab: [facility] Resources: none Behavioral Health History: none Patient goals: Patient wishes to discharge home. Disposition Plan: admission to acute; RN CM/SW to follow for discharge planning needs that may arise. Trish Soria, HAT MAKER, MEDICAL OFFICE SECRETARY
--- NOTE | 2024-06-21 17:08 | EX.PCM.CON.G ---
HPI Consult Data Date of Consult: 06/21/24 HPI Narrative Reason for Consultation: Anemia/GI bleeding HPI Narrative: JAUN BUCKNER, is a 78 F who presents with shortness of breath that began earlier this morning. Patient states it began rather suddenly. Patient states it feels like she cannot catch her breath. Patient states nothing makes it better and nothing makes it worse. Patient denies any cough. Patient denies any fevers or chills. Patient denies any chest pain. Patient denies any sore throat or rhinorrhea. Patient admits to some nausea but denies any vomiting. Patient had recent right shoulder surgery 2 weeks ago. She does have a history of persistent atrial fibrillation, hypertrophic cardiomyopathy with a reduced ejection fraction of 35% status post ICD implantation which was converted to a permanent pacemaker. The patient is systemically anticoagulated on Coumadin. On June 06, the patient underwent a right reverse total shoulder arthroplasty. Prior to the surgical procedure, the patient's INR was noted to be elevated at 4.1. Postprocedure, the patient reported that she resumed her normal, outpatient Coumadin regimen, as prescribed by cardiology. On presentation to the emergency department, the patient was documented to be afebrile with a presenting blood pressure of 85/40 mmHg. Laboratory evaluation was notable for a white blood cell count of 24,000 with a hemoglobin of 5.0 g/dL and normal platelet count. Previously, on June 13, the patient was noted to have a hemoglobin of 10.7 g/dL. Coagulation profile was notable for an elevated INR at 8.8. Chemistry profile was notable for a potassium of 5.6, BUN of 108 and creatinine of 2.82. Lactate was elevated at 2.9. Troponin was increased at 100 with a BNP of 529. [facility] Medical History Wears glasses Post-menopausal Anxiety Arthritis Back pain Syncope Former smoker Shortness of breath on exertion Hoarseness Hypertension History of stress test History of echocardiogram Cardiology follow-up encounter History of atrial fibrillation Chronic combined systolic and diastolic CHF (congestive heart failure) Hypertrophic cardiomyopathy 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 Longstanding persistent atrial fibrillation Hypothyroidism Secondary pulmonary arterial hypertension Vocal cord paralysis, unilateral complete Sick sinus syndrome Hyperlipidemia Left ventricular diastolic dysfunction FH: sudden cardiac (SCD) Home Medications ?Medication ?Instructions ?Recorded ?Last Taken ?Type aspirin 81 mg chewable tablet 81 mg PO DAILY@0800 Heart 01/22/15 06/05/24 History triamcinolone acetonide 55 mcg 1 spray NS PRN PRN Allergies 09/15/17 Unknown History nasal spray aerosol cholecalciferol (vitamin D3) 25 1,000 unit PO DAILY v 07/24/18 06/01/24 History mcg (1,000 unit) capsule levothyroxine 100 mcg tablet 100 mcg PO Q OTHER DAY Thyroid 07/24/18 06/04/24 History levothyroxine 75 mcg tablet 75 mcg PO Q OTHER DAY Thyroid 07/24/18 06/06/24 04:50 History vit C 250 mg-vit E 90 mg-zinc 40 1 tab PO DAILY vi 07/24/18 06/01/24 History mg-copper 1 at-bdifrf-nkvrzy capsule (PreserVision AREDS-2) albuterol sulfate 90 mcg/actuation 2 puff inhalation Q6H PRN 10/14/20 06/06/24 History aerosol inhaler shortness of breath or wheezing lactobacillus combination no.8 3 3,000 mmu cells PO DAILY probiotic 10/14/20 06/01/24 History billion cell capsule (Adult Probiotic) magnesium 200 mg tablet 200 mg PO DAILY replaceme 09/21/21 06/01/24 History Held on 06/21/24. Instructions: Ordered ngpt-lxvvq-yo8-apu-bmk-cfwa-sterols 1 cap PO DAILY joint 11/01/22 06/01/24 History 375 mg-100 mg-36 mg-54 mg capsule (Glucosamine Chondroitin PLUS) Handicap Parking Placard #1 ea 06/26/23 Unknown Rx warfarin 2.5 mg tablet 2.5 mg PO SUFRSA a-fi 03/19/24 06/02/24 History Held on 06/21/24. Instructions: Ordered warfarin 5 mg tablet 5 mg PO MOTUWETH afib 03/19/24 06/03/24 History Held on 06/21/24. Instructions: Ordered verapamil 120 mg tablet,extended 120 mg PO QHS #90 tabs 05/06/24 06/05/24 Rx release acetaminophen 500 mg tablet 1,000 mg (2 x 500 mg) PO Q8 30 06/09/24 Unknown Rx days #180 tabs oxycodone 5 mg tablet 5 - 10 mg (1 - 2 x 5 mg) PO Q6H 7 06/09/24 Unknown Rx days #28 tabs sacubitril 24 mg-valsartan 26 mg 1 tab PO BID #180 tabs 06/11/24 Unknown Rx tablet (Entresto) furosemide 40 mg tablet 80 mg PO DAILY CHF 06/21/24 Unknown History Allergy/AdvReac Type Severity Reaction Status Date / Time metoprolol Allergy Severe Abdominal Verified 06/21/24 07:46 pain, poor rate control amoxicillin AdvReac Rash Verified 06/21/24 07:46 lisinopril AdvReac Dry cough Verified 06/21/24 07:46 risedronate sodium (From AdvReac Rash Verified 06/21/24 07:46 Actonel) Family History Mother Cancer breast Sister Cancer breast and malignant melanoma Diabetes Brother Arrhythmia Surgical History History of laryngoscopy Hx of hemorrhoidectomy History of colonoscopy History of radiofrequency ablation procedure for cardiac arrhythmia (1999) History of hysterectomy Presence of permanent cardiac pacemaker (01/04/12) History of left heart catheterization (03/09/15) History of implantable cardiac defibrillator (ICD) History of dental surgery Hx of LASIK History of vocal cord surgery Social History Smoking Status: Former smoker how long ago did patient quit smokin years ago alcohol intake: never substance use type: does not use caffeine: No ROS Constitutional Constitutional: Denies fatigue, fever(s), poor appetite, weight gain or weight loss Gastrointestinal Gastrointestinal: Denies belching, bloating, change in bowel habits, change in stool character, chewing difficulty, coffee ground emesis, constipation, cramping, diarrhea, dyspepsia, dysphagia, early satiety, excessive flatus, fecal incontinence, heartburn, hematemesis, hematochezia, hemorrhoids, loose stools, melena, nausea, odynophagia, rectal bleeding, tenesmus, vomiting or weight changes Physical Exam Const alert, oriented x3, no apparent distress and healthy appearing General Appearance: cooperative GI normal to inspection, nondistended, normoactive bowel sounds, soft to palpation, non-tender and non-distended Percussion: normal to percussion Rectal Exam: deferred Lab / Micro Data 06/21/24 07:50 06/21/24 07:50 Labs: Laboratory Results - last 24 hr 06/21/24 07:50: WBC 23.7 H, RBC 1.72 L, Hgb 5.0 L*, Hct 16.2 L, MCV 94.2, MCH 29.1, MCHC 30.9 L, RDW Std Deviation 55.5 H, RDW Coeff of Linda 16.7 H, Plt Count 347, MPV 10.9, Neut % (Auto) Not Reportable, Absolute Neuts (auto) 21.3 H, Absolute Lymphs (auto) 0.95, Total Counted 100, Neutrophils % (Manual) 89 H, Band Neutrophils % 1, Lymphocytes % (Manual) 4 L, Monocytes % (Manual) 3, Eosinophils % (Manual) 1, Metamyelocytes % 2 H, Diff Path Review May foll, Toxic Vacuolation 1+, Platelet Estimate ADEQUATE, Polychromasia 1+, Anisocytosis 1+, Ovalocytes 1+, Acanthocytes (Spur) 1+, PT 74.5 H, INR 8.8 H*, APTT 35.6, D-Dimer Quant (PE/DVT) 1.75 H*, Sodium 137, Potassium 5.6 H, Chloride 102, Carbon Dioxide 27.0, Anion Gap 8, BUN 108 H*, Creatinine 2.82 H, Estim Creat Clear Calc 16.96, Est GFR (MDRD) Af Amer 21 L, Est GFR (MDRD) Non-Af 17 L, BUN/Creatinine Ratio 38.3 H, Glucose 187 H, Calcium 8.5, Troponin I High Sens 100 H, B-Natriuretic Peptide 529.8 H 06/21/24 09:50: Blood Type B NEGATIVE, Antibody Screen NEGATIVE, Crossmatch See Detail 06/21/24 10:15: Urine Color Yellow, Urine Clarity Clear, Urine pH 6.0, Ur Specific [place] 1.010, Urine Protein Negative, Urine Glucose (UA) Normal, Urine Ketones Negative, Urine Occult Blood Negative, Urine Nitrite Negative, Urine Bilirubin Negative, Urine Urobilinogen Normal, Ur Leukocyte Esterase Negative, Urine RBC 0 SEEN, Urine WBC 0 SEEN, Ur Squamous Epith Cells 0 SEEN, Urine Bacteria 0 SEEN, Urine Mucus 0 SEEN 06/21/24 10:53: Lactic Acid 2.9 H*, Troponin I High Sens 101 H 06/21/24 12:57: Urine Color Straw, Urine Clarity Sl. Cloudy, Urine pH 6.0, Ur Specific [place] 1.015, Urine Protein 15 H, Urine Glucose (UA) Normal, Urine Ketones Negative, Urine Occult Blood 10 H, Urine Nitrite Negative, Urine Bilirubin Negative, Urine Urobilinogen Normal, Ur Leukocyte Esterase 25 H, Urine RBC 0-5 SEEN, Urine WBC 0-5 SEEN, Ur Squamous Epith Cells 0-5 SEEN, Urine Bacteria 0 SEEN, Urine Mucus 0 SEEN Micro: Microbiology 06/21/24 12:57 Urine Catheter - Catheter Legionella Antigen - Final 06/21/24 12:57 Urine Catheter - Catheter Streptococcus pneumoniae Antigen (M - Final 06/21/24 13:07 Mucosa - Nose SARS-CoV-2, Influenza & RSV (PCR) - Final 06/21/24 09:40 Stool Stool Occult Blood (AALIYAH) - Final Imaging Radiology Impression Chest X-Ray 06/21/24 08:06 IMPRESSION: Cardiomegaly with mild congestion. Reading Location[facility] Assessment & Plan Assessment/Plan (1) Warfarin-induced coagulopathy: (2) Sepsis: (3) Anemia: (4) Gastrointestinal bleeding, upper: (5) Chronic combined systolic and diastolic CHF (congestive heart failure): PLAN: Plan 78-year-old lady who recently underwent a right shoulder arthroplasty due to a rotator cuff tear on 06/06/2024 presented back to the emergency department with progressive shortness of breath and and weakness Acute blood loss anemia I suspected to be secondary to upper GI bleed exacerbated by use of systemic anticoagulation with warfarin. Patient's INR was 8.8, with a hemoglobin of 5.5. Patient was typed and crossmatched from the emergency department and order was given for patient to be transfused with 2 unit PRBC subsequently started on Protonix drip after receiving Protonix bolus. Then she was admitted to the intensive care unit subsequent monitoring with serial H&H. She will need to undergo an upper endoscopy to evaluate upper GI tract. I would check a repeat troponins just to make sure they are not going up significantly. Fluid status and respiratory status being managed by the hospitalist and instrument mechanic team. Charges/Coding Visit Charges Inpatient E&M: 71829 Init Hosp L3
--- NOTE | 2024-06-21 17:10 | RAD_ITS ---
EXAM: CXR FOR LINE PLACEMENT CLINICAL HISTORY: Line placement COMPARISON: 06/21/2024 8:59 TECHNIQUE: Single view(s) of the chest obtained. FINDINGS: Lungs demonstrate no focal airspace consolidation. No pulmonary edema. No gross pneumothorax. No significant pleural effusion. Cardiomegaly. Mild central pulmonary vascular congestion. Left chest wall cardiac pacer. Left PICC with tip in the right atrium. Status post right total shoulder replacement. RAD/CXR for Line Placement IMPRESSION: Left PICC with tip in the right atrium. Cardiomegaly with mild central pulmonary vascular congestion. Reading Location: [id number]
--- NOTE | 2024-06-21 17:58 | NURSING ---
Dr Licona said PIC ok to use.
[2024-06-21] MEDS: 0.9% Normal Saline (1000mL) 1,000 ML 75 ML IV (18:21)
[2024-06-21] MEDS: Pantoprazole Sodium 80 MG in 0.9% Normal Saline (100mL Bag) 80 ML 10 MG CONT INF (18:22)
[2024-06-21 18:40] LABS: International Normalized Ratio 2.1; Prothrombin Time (Protime)PT. 24.2 SECONDS (11.7-14.9)
[2024-06-21 18:45] LABS: Lactic Acid 0.6 mmol/L (0.4-1.9)
[2024-06-21 18:46] LABS: Troponin-I HS 108 pg/mL (3.0-54.0)
[2024-06-22] VITALS (26 sets, daily range): BP systolic 85–110; BP diastolic 56–86; PULSE 82–120; RESP 11–26; TEMP 36.6–37.5; O2SAT 91–100; BMI 28.9
[2024-06-22 00:08] LABS: Hematocrit 19.7 % (37-47); Hemoglobin 6.5 g/dL (12.0-15.0)
--- NOTE | 2024-06-22 01:24 | PCM.HOSP.N ---
Hospitalist Note Repeat Hgb 6.5, will order an additional 2 u PRBC with planned repeat CBC in AM. Continue to monitor for associated overload secondary to volume administration.
[2024-06-22] MEDS: Pantoprazole Sodium 80 MG in 0.9% Normal Saline (100mL Bag) 80 ML 10 MG CONT INF ×3 (03:44→20:55)
[2024-06-22] MEDS: 0.9% Normal Saline (1000mL) 1,000 ML 75 ML IV (05:01)
[2024-06-22 05:16] LABS: Hematocrit 23.4 % (37-47); Hemoglobin 7.5 g/dL (12.0-15.0)
[2024-06-22 05:30] LABS: Anion Gap 8 (5-15); BUN 95 mg/dL (7-18); BUN/Creat Ratio 40.8 RATIO (10-20); Calcium,Total 8.6 mg/dL (8.5-10.1); Chloride 109 mmol/L (98-107); Creatinine, Serum 2.33 mg/dL (0.55-1.02); EST Glomerular Filtration Rate 22 mL/min (>60); Est Glom Filt Rate - Afr Amer 26 mL/min (>60); Estimated Creatinine Clearance 21.04 ml/min; Glucose 107 mg/dL (74-106); Magnesium 2.4 mg/dL (1.6-2.6); Potassium 4.9 mmol/L (3.5-5.1); Sodium Level 139 mmol/L (136-145)
--- NOTE | 2024-06-22 07:15 | PN.HOSP_ITS ---
Reason for Visit Reason for Visit: Diagnoses Sepsis, unspecified organism (06/21/24) Anemia, unspecified (06/21/24) Hemorrhagic disorder due to extrinsic circulating anticoagulants (06/21/24) Chronic combined systolic (congestive) and diastolic (congestive) heart failure (06/21/24) Gastrointestinal hemorrhage, unspecified (06/21/24) Adverse effect of anticoagulants, initial encounter (06/21/24) Subjective Subjective Patient scheduled to undergo endoscopic evaluation this a.m. Objective Data Objective Data Vital Signs: Vital Signs Temp Pulse Resp BP Pulse Ox O2 Del Method O2 Flow Rate 99.5 F H 82 15 97/63 98 Room Air 2 06/22/24 06:00 06/22/24 06:00 06/22/24 06:00 06/22/24 06:00 06/22/24 06:00 06/22/24 06:00 06/21/24 21:00 Oxygen Flow Rate (L/min) 2 Oxygen Delivery Method Room Air Weight: 78.9 kg Body Mass Index (BMI) 28.9 Intake & Output: Intake and Output for Last 24 Hours 06/20/24 06/21/24 06/22/24 23:59 23:59 23:59 Intake Total 3482.5 / 3482.5 893.67 / 893.67 Output Total 950 / 1450 950 / 950 Balance 2532.5 / 2032.5 -56.33 / -56.33 Lab / Micro Data 06/22/24 08:45 06/22/24 05:00 Labs: Laboratory Results - last 24 hr 06/21/24 07:50: WBC 23.7 H, RBC 1.72 L, Hgb 5.0 L*, Hct 16.2 L, MCV 94.2, MCH 29.1, MCHC 30.9 L, RDW Std Deviation 55.5 H, RDW Coeff of Linda 16.7 H, Plt Count 347, MPV 10.9, Neut % (Auto) Not Reportable, Absolute Neuts (auto) 21.3 H, Absolute Lymphs (auto) 0.95, Total Counted 100, Neutrophils % (Manual) 89 H, Band Neutrophils % 1, Lymphocytes % (Manual) 4 L, Monocytes % (Manual) 3, Eosinophils % (Manual) 1, Metamyelocytes % 2 H, Diff Path Review May foll, Toxic Vacuolation 1+, Platelet Estimate ADEQUATE, Polychromasia 1+, Anisocytosis 1+, Ovalocytes 1+, Acanthocytes (Spur) 1+, PT 74.5 H, INR 8.8 H*, APTT 35.6, D-Dimer Quant (PE/DVT) 1.75 H*, Sodium 137, Potassium 5.6 H, Chloride 102, Carbon Dioxide 27.0, Anion Gap 8, BUN 108 H*, Creatinine 2.82 H, Estim Creat Clear Calc 16.96, Est GFR (MDRD) Af Amer 21 L, Est GFR (MDRD) Non-Af 17 L, BUN/Creatinine Ratio 38.3 H, Glucose 187 H, Calcium 8.5, Troponin I High Sens 100 H, B- Natriuretic Peptide 529.8 H 06/21/24 09:50: Blood Type B NEGATIVE, Antibody Screen NEGATIVE, Crossmatch See Detail 06/21/24 09:50: Crossmatch See Detail 06/21/24 10:15: Urine Color Yellow, Urine Clarity Clear, Urine pH 6.0, Ur Specific [place] 1.010, Urine Protein Negative, Urine Glucose (UA) Normal, Urine Ketones Negative, Urine Occult Blood Negative, Urine Nitrite Negative, Urine Bilirubin Negative, Urine Urobilinogen Normal, Ur Leukocyte Esterase Negative, Urine RBC 0 SEEN, Urine WBC 0 SEEN, Ur Squamous Epith Cells 0 SEEN, Urine Bacteria 0 SEEN, Urine Mucus 0 SEEN 06/21/24 10:53: Lactic Acid 2.9 H*, Troponin I High Sens 101 H 06/21/24 12:57: Urine Color Straw, Urine Clarity Sl. Cloudy, Urine pH 6.0, Ur Specific [place] 1.015, Urine Protein 15 H, Urine Glucose (UA) Normal, Urine Ketones Negative, Urine Occult Blood 10 H, Urine Nitrite Negative, Urine Bilirubin Negative, Urine Urobilinogen Normal, Ur Leukocyte Esterase 25 H, Urine RBC 0-5 SEEN, Urine WBC 0-5 SEEN, Ur Squamous Epith Cells 0-5 SEEN, Urine Bacteria 0 SEEN, Urine Mucus 0 SEEN 06/21/24 18:13: PT 24.2 H, INR 2.1, Lactic Acid 0.6, Troponin I High Sens 108 H 06/21/24 23:55: Hgb 6.5 L, Hct 19.7 L 06/22/24 05:00: Hgb 7.5 L, Hct 23.4 L, Sodium 139, Potassium 4.9, Chloride 109 H , Carbon Dioxide 22.0, Anion Gap 8, BUN 95 H, Creatinine 2.33 H, Estim Creat Clear Calc 21.04, Est GFR (MDRD) Af Amer 26 L, Est GFR (MDRD) Non-Af 22 L, B UN/Creatinine Ratio 40.8 H, Glucose 107 H, Calcium 8.6, Magnesium 2.4 Micro: Microbiology 06/21/24 12:57 Urine Catheter - Catheter Legionella Antigen - Final 06/21/24 12:57 Urine Catheter - Catheter Streptococcus pneumoniae Antigen (M - Final 06/21/24 14:35 Mucosa - Nasopharyngeal Respiratory Panel (PCR) - Final 06/21/24 13:07 Mucosa - Nose SARS-CoV-2, Influenza & RSV (PCR) - Final 06/21/24 09:40 Stool Stool Occult Blood (AALIYAH) - Final Radiography Diagnostic Testing: Radiology Impression Chest X-Ray 06/21/24 08:06 IMPRESSION: Cardiomegaly with mild congestion. Reading Location: [facility] Chest X-Ray 06/21/24 17:10 IMPRESSION: Left PICC with tip in the right atrium. Cardiomegaly with mild central pulmonary vascular congestion. Reading Location: [facility] Physical Exam Narrative GENERAL: Frail looking HEENT: Atraumatic; normocephalic EYES; Anicteric, pallor of the conjunctiva NECK; supple, normal thyroid, RESPIRATORY: Diminished to auscultation CARDIOVASCULAR: Irregularly irregular GI: soft, normoactive bowel sounds, : No Renal angle tenderness; EXTREMITIES: Bipedal edema edema, no clubbing, MUSCULOSKELETAL: no muscle wasting NEURO: Awake; no lateralizing signs. SKIN: No Rash PSYCH; Flat affect Assessment & Plan Assessment/Plan (1) Warfarin-induced coagulopathy: (2) Sepsis: (3) Anemia: (4) Gastrointestinal bleeding, upper: (5) Chronic combined systolic and diastolic CHF (congestive heart failure): PLAN: Plan Patient is a 78-year-old lady who underwent rash shoulder total reverse arthroplasty on account of rotator cuff tear on 06/06/2024 presented back to the emergency department with progressive shortness of breath and and weakness 1. Sepsis ? Suspected to be secondary to healthcare acquired pneumonia patient presented with progressive generalized weakness dyspnea chills but no fever. Was found to have elevated WBC count as well as lactic acidosis. Patient has been admitted to the intensive care unit. Patient did not receive IV fluid resuscitation per protocol given her concomitant congestive heart failure. Patient was started on broad-spectrum antibiotic therapy after cultures have been obtained also did request for viral respiratory panel and COVID assay. Response to therapy being monitored with serial lactic acid levels ? 06/22/2024; patient did not require Levophed 2. Acute blood loss anemia ? Suspected to be secondary to upper GI bleed exacerbated by use of systemic anticoagulation with warfarin. Patient was typed and crossmatched from the emergency department and order was given for patient to be transfused with 2 unit PRBC subsequently started on Protonix drip after receiving Protonix bolus. Admitted to the intensive care unit subsequent monitoring with serial H&H ordered consult placed to Dr. Jones from the ED ? 06/22/2024; patient did receive 3 unit PRBC transfusion hemoglobin this a.m. is 7.5 3. Acute on chronic kidney disease stage III ? Patient did receive IV fluid resuscitation subsequent monitoring ordered 4. Hyperkalemia ? Secondary to patient worsening kidney function repeated potassium levels and if still elevated an order will be given for patient to receive Kayexalate 5. Coumadin induced coagulopathy ? Patient INR on admission was 8.8 and order was given for patient to receive vitamin K 6. Acute on chronic congestive heart failure with reduced ejection fraction ? Patient echo from 04/03/2024 demonstrated Normal LV size. The estimated ejection fraction is 40 %. There is moderate global hypokinesis of the left ventricle. The left atrium is severely enlarged. Pulmonary artery systolic pressure is 48 mmHg. [place] : Akinetic. Anterior [place] : Hypokinetic Mid-Anterior : Mildly hypokinetic ? Patient admitted to monitored bed monitoring strict input and output patient is on furosemide resumed cautiously given patient relatively low blood pressure 7. Hypothyroidism ? Patient is on levothyroxine home dose continued 8. Persistent A-fib ? Rate controlled on systemic anticoagulation with warfarin which is being held given her presentation 9. Dyslipidemia ?Patient is on statin therapy, continued at home dose 10. 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 On account of rotator cuff injury 11. Sick sinus syndrome ? Status post pacemaker placement DVT prophylaxis ? Patient already on Coumadin with supratherapeutic INR Time spent in the patient's overall evaluation,decision-making process, review of diagnostic data, adjustment of management, discussion with other providers, nursing nursing and ancillary staff involved in patient's care documentation, 52 minutes Charges/Coding Visit Charges Inpatient E&M: [id number] [place] [id number]
--- NOTE | 2024-06-22 08:11 | PCM.PN.BLA ---
Progress Note No changes for the patient overnight. She is For Upper Endoscopy and Has Been N.P.O. since Midnight. Physical Exam Narrative GENERAL: Frail looking HEENT: Atraumatic; normocephalic EYES; Anicteric, pallor of the conjunctiva NECK; supple, normal thyroid, RESPIRATORY: Diminished to auscultation CARDIOVASCULAR: Irregularly irregular GI: soft, normoactive bowel sounds, : No Renal angle tenderness; EXTREMITIES: Bipedal edema edema, no clubbing, MUSCULOSKELETAL: no muscle wasting NEURO: Awake; no lateralizing signs. SKIN: No Rash PSYCH; Flat affect Assessment & Plan Assessment/Plan (1) Warfarin-induced coagulopathy: (2) Sepsis: (3) Anemia: (4) Gastrointestinal bleeding, upper: (5) Chronic combined systolic and diastolic CHF (congestive heart failure): PLAN: Plan 78-year-old lady who recently underwent a right shoulder arthroplasty due to a rotator cuff tear on 06/06/2024 presented back to the emergency department with progressive shortness of breath and and weakness Acute blood loss anemia I suspected to be secondary to upper GI bleed exacerbated by use of systemic anticoagulation with warfarin. Patient's INR was 8.8, with a hemoglobin of 5.5. Patient was typed and crossmatched from the emergency department and order was given for patient to be transfused with 2 unit PRBC subsequently started on Protonix drip after receiving Protonix bolus. Then she was admitted to the intensive care unit subsequent monitoring with serial H&H. She will need to undergo an upper endoscopy to evaluate upper GI tract. I would check a repeat troponins just to make sure they are not going up significantly. Fluid status and respiratory status being managed by the hospitalist and grape cutter team. All questions and concerns were answered prior to the procedure. Visit Charges Inpatient E&M: [id number] [facility] L3
--- NOTE | 2024-06-22 08:12 | PCM.PRE.AN2 ---
ASA Classification* ASA Classification ASA Classification: 3 and E Assessment & Plan Anesthesia* Anesthesia Assessment Anesthesia Assessment: Discussed sedation and/or anesthesia options, risks, benefits, and alternatives with patient/parents/legal guardian/POA. Questions invited. The patient/parents/legal guardian/POA seems to understand and agrees to proceed with anesthesia plan. Reviewed the physical assessment, medical history, allergy history and patient home medications list prior to surgery/procedure/anesthetic and documented any changes. Performed airway and anesthesia risk assessments. Anesthesia Type Anesthesia Type: MAC History Source History Obtained from:: Patient and Chart Anesthesia Focused Assessment* Temperature: 99.5 F Pulse Rate: 89 Blood Pressure: 109/70 Respiratory Rate: 18 Pulse Ox: 97 Oxygen Flow Rate (L/min): 2 Airway Assessment Mouth opens: >3 cm Mallampati Score: II Focused Labs Anesthesia Preop lab: CBC WBC 23.7 K/mm3 (4.4-11.0) H 06/21/24 07:50 06/21/24 RBC 1.72 M/mm3 (4.2-5.4) L 06/21/24 07:50 06/21/24 Hgb 7.5 g/dL (12.0-15.0) L 06/22/24 05:00 06/22/24 Hct 23.4 % (37-47) L 06/22/24 05:00 06/22/24 Plt Count 347 K/mm3 (150-450) 06/21/24 07:50 06/21/24 CHEMISTRY Potassium 4.9 mmol/L (3.5-5.1) 06/22/24 05:00 06/22/24 Sodium 139 mmol/L (136-145) 06/22/24 05:00 06/22/24 Magnesium 2.4 mg/dL (1.6-2.6) 06/22/24 05:00 06/22/24 BUN 95 mg/dL (7-18) H 06/22/24 05:00 06/22/24 Creatinine 2.33 mg/dL (0.55-1.02) H 06/22/24 05:00 06/22/24 Glucose 107 mg/dL (74-106) H 06/22/24 05:00 06/22/24 POC Glucose 127 mg/dL (74-106) H 06/06/24 06:06 06/06/24 TSH 1.880 uIU/mL (0.358-3.740) 03/26/24 08:34 03/26/24 COAG PT 24.2 SECONDS (11.7-14.9) H 06/21/24 18:13 06/21/24 INR 2.4 09/22/23 09:00 09/22/23 Pre-Assessment Diagnosis/Proposed Procedure Planned Operative Procedure(s): egd Anesthesia History Anesthesia History - merchandise associate: Anesthesia History - merchandise associate Hx Hospitalization No 05/27/24 08:25 Any Problems With Anesthesia No 05/27/24 08:25 Cholinesterase deficiency No 05/27/24 08:25 You/Your Family Experience No 05/27/24 08:25 fever (hyperthermia) with Relationship Recent Exposure to Contagious No 06/06/24 06:05 Disease Does patient have nerve No 05/27/24 08:25 stimulator Patient instructed to have device shut off --Does patient have Pacemaker or ICD? When Was Last Pacemaker Check QUESTION #4 FULL TEXT: You/Your Family Experience fever (hyperthermia) with Anesthesia Any additional information?: No Last Oral Intake Last Oral intake: Last Oral Intake NPO since Meds taken in AM with sips of water? Meds patient instructed to take am of surgery Any additional information?: No PONV PONV - merchandise associate: PONV - merchandise associate Female HX of Motion Sickness HX of N/V After Surgery Non-Smoker Duration of Surgery greater than 60 minutes Number of Risk Factors PONV Score Any additional information?: No Height & Weight Height & Weight: Anesthesia: Height & Weight Height 5 ft 5 in 06/21/24 14:42 Weight: 78.9 kg 06/22/24 05:31 Body Mass Index (BMI) 28.9 06/22/24 05:31 Respiratory Assessment Respiratory Assessment - merchandise associate: Respiratory Tract Infection Hx - merchandise associate Hx Respiratory Tract Infection No 05/27/24 08:25 Any additional information?: No STOP Sleep Apnea STOP Sleep Apnea - merchandise associate: STOP Sleep Apnea - merchandise associate Hx Hypertension No 06/21/24 14:12 Hx Sleep Apnea No 06/21/24 14:12 CPAP No 05/27/24 08:25 BIPAP Do you snore loudly (louder No 06/21/24 14:12 than talking or can be heard Do you often feel tired/ No 06/21/24 14:12 fatigued/ sleepy during daytime? Has anyone observed you stop No 06/21/24 14:12 breathing during sleep? STOP Results Negative 06/21/24 14:12 QUESTION #5 FULL TEXT : Do you snore loudly (louder than talking or can be heard through closed doors)? 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 Specify any problems Hx of Preganancy in last 3 N/A 06/21/24 14:12 Months Nurse Filling Out Transfusion ANORRIS 06/21/24 14:12 & Questions: Date: 06/21/24 06/21/24 14:12 Time: 14:17 06/21/24 14:12 Patient unable to answer at this time (ie. confused, unrespo Any additional information?: No /Reproduction History /Reproductive History - merchandise associate: /Reproductive Hx- merchandise associate Hx Now Gestational Age (in weeks): EDC: Hx Hx Para Hx Section SAB No 05/27/24 08:25 Any additional information?: No Active Medications Active Medications: Current Medications Generic Name Dose Route Start Last Admin Trade Name Freq PRN Reason Stop Dose Admin Acetaminophen 650 mg 06/21/24 14:09 06/21/24 20:23 Acetaminophen 325 Mg Tablet PO 650 mg Q6H PRN PRN Administration Pain 1-10 Or Fever >100.7 Albuterol Sulfate 2.5 mg 06/21/24 14:09 Albuterol 2.5 Mg/3 Ml Vial.Neb. INHALATION Q2H PRN PRN SOB &/OR WHEEZING Furosemide 80 mg 06/22/24 10:00 Furosemide 80 Mg Tablet PO DAILY [facility] Protocol Guaifenesin 10 ml 06/21/24 14:09 Guaifenesin 10 Ml Udc (200mg/10ml) PO Q4H PRN PRN COUGH Hydromorphone HCl 0.5 - 1 mg 06/21/24 14:09 Hydromorphone 1 Mg/Ml Syringe IV Q3H PRN PRN Pain Score 6-10 Hydromorphone HCl 0.5 - 1 mg 06/21/24 14:16 Hydromorphone 0.5 Mg/0.5 Ml Syringe IV Q3H PRN PRN Pain Score 6-10 Sodium Chloride 1,000 mls @ 75 mls/hr 06/21/24 14:09 06/22/24 05:01 IV 06/22/24 16:48 75 mls/hr .[id number] LEONILA Administration Protocol Vancomycin IV-PHARMACY TO DOSE 500 mls @ 250 mls/hr 06/21/24 14:09 1 each/ Sodium Chloride IV X1 PRN Rx to Dose Protocol Cefepime HCl 2 gm/ Sodium 100 mls @ 200 mls/hr 06/22/24 10:00 Chloride IV Q24 LEONILA Pantoprazole Sodium 80 mg/ 100 mls @ 10 mls/hr 06/21/24 14:09 06/22/24 03:44 Sodium Chloride CONT INF 06/24/24 14:10 10 mls/hr Q10H LEONILA Administration Sodium Chloride 100 mls @ 15 mls/hr 06/21/24 14:14 IV .Q6H40M PRN Saline Flush Sodium Chloride 100 mls @ 15 mls/hr 06/21/24 14:14 IV .Q6H40M PRN SALINE FLUSH Sodium Chloride 100 mls @ 15 mls/hr 06/21/24 14:14 IV .Q6H40M PRN Additional IVPB Infusion Norepinephrine Bitartrate 8 mg 250 mls @ 9.375 mls/hr 06/21/24 16:47 06/21/24 19:40 / Sodium Chloride CONT INF Not Given .[id number] [facility] Protocol 5 MCG/MIN Levothyroxine Sodium 100 mcg 06/23/24 06:00 Levothyroxine 100 Mcg Tablet PO QODAY@0600 [facility] Levothyroxine Sodium 75 mcg 06/24/24 06:00 Levothyroxine 75 Mcg Tablet PO QODAY@0600 [facility] Melatonin 3 mg 06/21/24 14:09 Melatonin 3 Mg Tablet PO QHS PRN PRN INSOMNIA Ondansetron HCl 4 mg 06/21/24 14:09 Ondansetron 4 Mg/2 Ml Vial IV Q8H PRN PRN NAUSEA/VOMITING Oxycodone HCl 5 mg 06/21/24 14:09 Oxycodone 5 Mg Tablet PO Q4H PRN PRN Pain Score 4-10 Senna/Docusate Sodium 2 tablet 06/21/24 14:09 Senna/Docusate Sodium 1 Tablet PO BID PRN PRN Constipation Sodium Chloride 10 - 40 ml 06/21/24 14:14 0.9% Saline Lock 10 Ml Syringe IV UD PRN SALINE FLUSH Vancomycin Protocol 1 lab 06/23/24 04:00 Vancomycin Trough/Random Due MC 06/23/24 08:00 DAILY [facility] PFS Medical History Wears glasses Post-menopausal Anxiety Arthritis Back pain Syncope Former smoker Shortness of breath on exertion Hoarseness Hypertension History of stress test History of echocardiogram Cardiology follow-up encounter History of atrial fibrillation Chronic combined systolic and diastolic CHF (congestive heart failure) Hypertrophic cardiomyopathy 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 Longstanding persistent atrial fibrillation Hypothyroidism Secondary pulmonary arterial hypertension Vocal cord paralysis, unilateral complete Sick sinus syndrome Hyperlipidemia Left ventricular diastolic dysfunction FH: sudden cardiac (SCD) Home Medications ?Medication ?Instructions ?Recorded ?Last Taken ?Type aspirin 81 mg chewable tablet 81 mg PO DAILY@0800 Heart 01/22/15 06/05/24 History triamcinolone acetonide 55 mcg 1 spray NS PRN PRN Allergies 09/15/17 Unknown History nasal spray aerosol cholecalciferol (vitamin D3) 25 1,000 unit PO DAILY v 07/24/18 06/01/24 History mcg (1,000 unit) capsule levothyroxine 100 mcg tablet 100 mcg PO Q OTHER DAY Thyroid 07/24/18 06/04/24 History levothyroxine 75 mcg tablet 75 mcg PO Q OTHER DAY Thyroid 07/24/18 06/06/24 04:50 History vit C 250 mg-vit E 90 mg-zinc 40 1 tab PO DAILY vi 07/24/18 06/01/24 History mg-copper 1 [id number] capsule (PreserVision AREDS-2) albuterol sulfate 90 mcg/actuation 2 puff inhalation Q6H PRN 10/14/20 06/06/24 History aerosol inhaler shortness of breath or wheezing lactobacillus combination no.8 3 3,000 mmu cells PO DAILY probiotic 10/14/20 06/01/24 History billion cell capsule (Adult Probiotic) magnesium 200 mg tablet 200 mg PO DAILY replaceme 09/21/21 06/01/24 History Held on 06/21/24. Instructions: MD Ordered kzax-stugm-[id number]-zji-oti-tibj-sterols 1 cap PO DAILY joint 11/01/22 06/01/24 History 375 mg-100 mg-36 mg-54 mg capsule (Glucosamine Chondroitin PLUS) Handicap Parking Placard #1 ea 06/26/23 Unknown Rx warfarin 2.5 mg tablet 2.5 mg PO SUFRSA a-fi 03/19/24 06/02/24 History Held on 06/21/24. Instructions: MD Ordered warfarin 5 mg tablet 5 mg PO MOTUWETH afib 03/19/24 06/03/24 History Held on 06/21/24. Instructions: Ordered verapamil 120 mg tablet,extended 120 mg PO QHS #90 tabs 05/06/24 06/05/24 Rx release acetaminophen 500 mg tablet 1,000 mg (2 x 500 mg) PO Q8 30 06/09/24 Unknown Rx days #180 tabs oxycodone 5 mg tablet 5 - 10 mg (1 - 2 x 5 mg) PO Q6H 7 06/09/24 Unknown Rx days #28 tabs sacubitril 24 mg-valsartan 26 mg 1 tab PO BID #180 tabs 06/11/24 Unknown Rx tablet (Entresto) furosemide 40 mg tablet 80 mg PO DAILY CHF 06/21/24 Unknown History Allergy/AdvReac Type Severity Reaction Status Date / Time metoprolol Allergy Severe Abdominal Verified 06/21/24 07:46 pain, poor rate control amoxicillin AdvReac Rash Verified 06/21/24 07:46 lisinopril AdvReac Dry cough Verified 06/21/24 07:46 risedronate sodium (From AdvReac Rash Verified 06/21/24 07:46 Actonel) Family History Mother Cancer breast Sister Cancer breast and malignant melanoma Diabetes Brother Arrhythmia Surgical History History of laryngoscopy Hx of hemorrhoidectomy History of colonoscopy History of radiofrequency ablation procedure for cardiac arrhythmia (1999) History of hysterectomy Presence of permanent cardiac pacemaker (01/04/12) History of left heart catheterization (03/09/15) History of implantable cardiac defibrillator (ICD) History of dental surgery Hx of LASIK History of vocal cord surgery Social History Smoking Status: Former smoker how long ago did patient quit smokin years ago alcohol intake: never substance use type: does not use caffeine: No Review of Systems (Anesthesia) ROS Narrative System reviewed and no additional complaints, except as documented.
--- NOTE | 2024-06-22 08:28 | PCM.POST.ANE ---
Anesthesia: Postop Eval I Current Vital Signs Temperature: 98.1 F Pulse Rate: 95 Blood Pressure: 94/62 Respiratory Rate: 20 Pulse Ox: 99 Oxygen Delivery Method: Nasal Cannula Oxygen Flow Rate (L/min): 2 Assessment Airway patent: Yes Spontaneous unlabored respirations: Yes Mental status: Awake nausea: No Vomiting: No Anesthesia Complication: No Fluid Hydration Crystalloid volume administer (ml): 100 Total IV fluid infused: 100 Progress Note Post-operative progress note: pt spontaneously breathing Anesthesia document: Postop Eval 1 completed: Yes
--- NOTE | 2024-06-22 08:34 | PN_ITS ---
Progress Note Follow-up in office: [2 Weeks} Okay to restart [Coumadin] on [06/24/2024] Post elective endoscopic procedures- If antiplatelet or anticoagulant therapy is discontinued, then we recommend this should be resumed up to 2?3 days after the procedure depending on the perceived haemorrhagic and thrombotic risks (strong recommendation, moderate quality evidence). Since she has a high thrombotic risk consider restarting with bridging therapy using heparin. Okay to restart [Aspirin on 07/08/2024] New GI related medications for discharge: [Protonix and Carafate] Follow-up procedures needed: [Repeat upper endoscopy and 4 to 6 weeks] Visit Charges Inpatient E&M: [id number] [facility] L1
--- NOTE | 2024-06-22 08:36 | OP.EGD_ITS ---
Patient Name: Bettina Chambers Procedure Date: 06/22/2024 7:49 AM Date of : 1945 Age: 78 Procedure: Upper GI endoscopy Indications: Melena, Recent gastrointestinal bleeding Providers: Sergio Jones DO Medicines: Monitored Anesthesia Care Patient Profile: This is a 78 year old female. Refer to note in patient chart for documentation of history and physical. Patient has symptoms of acute epigastric abdominal pain. Complications: No immediate complications. Procedure: Pre-Anesthesia Assessment: - Prior to the procedure, a History and Physical was performed, and patient medications and allergies were reviewed. The patient is competent. The risks and benefits of the procedure and the sedation options and risks were discussed with the patient. All questions were answered and informed consent was obtained. Patient identification and proposed procedure were verified by the physician in the pre-procedure area. Mental Status Examination: alert and oriented. Airway Examination: normal oropharyngeal airway and neck mobility. Respiratory Examination: clear to auscultation. CV Examination: normal. Prophylactic Antibiotics: The patient does not require prophylactic antibiotics. Prior Anticoagulants: The patient has taken no anticoagulant or antiplatelet agents. ASA Grade Assessment: III - A patient with severe systemic disease. After reviewing the risks and benefits, the patient was deemed in satisfactory condition to undergo the procedure. The anesthesia plan was to use monitored anesthesia care (MAC). Immediately prior to administration of medications, the patient was re-assessed for adequacy to receive sedatives. The heart rate, respiratory rate, oxygen saturations, blood pressure, adequacy of pulmonary ventilation, and response to care were monitored throughout the procedure. The physical status of the patient was re-assessed after the procedure. After obtaining informed consent, the endoscope was passed under direct vision. Throughout the procedure, the patient's blood pressure, pulse, and oxygen saturations were monitored continuously. The Endoscope was introduced through the mouth, and advanced to the second part of duodenum. The upper GI endoscopy was accomplished without difficulty. The patient tolerated the procedure well. Scope In: 8:19:26 AM Scope Out: 8:24:40 AM Total Procedure Duration Time 0 hours 5 minutes 14 seconds Findings: No gross lesions were noted in the entire esophagus. A medium-sized hiatal hernia was present. One non-bleeding cratered gastric ulcer with no stigmata of bleeding was found in the gastric antrum, in the prepyloric region of the stomach and at the pylorus. The lesion was three mm by four mm in largest dimension. One non-bleeding cratered duodenal ulcer with no stigmata of bleeding was found in the first portion of the duodenum. The lesion was 10 mm in largest dimension. Impression: - No gross lesions in the entire esophagus. - Medium-sized hiatal hernia. - Non-bleeding gastric ulcer with no stigmata of bleeding. - Non-bleeding duodenal ulcer with no stigmata of bleeding. - No specimens collected. Recommendation: - [facility]. - Resume regular diet today. - Continue present medications. - Use Protonix (pantoprazole) 40 mg PO BID indefinitely. - Use sucralfate tablets 1 gram PO QID for 2 months. Procedure Code(s): --- Professional --- 15111, Esophagogastroduodenoscopy, flexible, transoral; diagnostic, including collection of specimen(s) by brushing or washing, when performed (separate procedure) CPT copyright 2021 [employer]. All rights reserved. The codes documented in this report are preliminary and upon manager clinical research review may be revised to meet current compliance requirements. Sergio Jones DO 06/22/2024 8:34:37 AM This report has been signed electronically. Number of Addenda: 0 Note Initiated On: 06/22/2024 7:49 AM
--- NOTE | 2024-06-22 08:36 | OP.CCLET_ITS ---
06/22/2024 Humaira Churchill [address] [place] [address] Re : Upper GI endoscopy procedure for Bettina Chambers Dear Dr. Churchill This procedure was performed on Saturday, June 22, 2024. My impressions and recommendations are as follows: Impressions : - No gross lesions in the entire esophagus. - Medium-sized hiatal hernia. - Non-bleeding gastric ulcer with no stigmata of bleeding. - Non-bleeding duodenal ulcer with no stigmata of bleeding. - No specimens collected. Recommendations : - [facility] to [facility]. - Resume regular diet today. - Continue present medications. - Use Protonix (pantoprazole) 40 mg PO BID indefinitely. - Use sucralfate tablets 1 gram PO QID for 2 months. My findings are described in the full procedure note, which is enclosed. If I can be of further assistance, please feel free to contact me at . Sincerely, Sergio Jones DO 06/22/2024 8:34:37 AM This report has been signed electronically.
--- NOTE | 2024-06-22 08:37 | POSTOPAN2_ITS ---
Anesthesia Postop Eval I Sum Postop Eval Completion status Anesthesia document: Postop Eval 1 completed: Yes Anesthesia Postop Eval I Summary Anesthesia Postop Eval I Summary: Anesthesia Postop Eval I: Assessment Summary Airway patent Yes 06/22/24 08:29 COMMODITY LEAD.MEDM Spontaneous unlabored Yes 06/22/24 08:29 COMMODITY LEAD.MEDM respirations Mental status Awake 06/22/24 08:29 COMMODITY LEAD.MEDM nausea No 06/22/24 08:29 COMMODITY LEAD.MEDM Vomiting No 06/22/24 08:29 COMMODITY LEAD.MEDM Anesthesia Postop Eval I: Fluid Summary Crystalloid volume administer 100 06/22/24 08:29 COMMODITY LEAD.MEDM (ml) Colloids volume administered ( ml) Blood Product volume administered (ml) Total IV fluid infused 100 06/22/24 08:29 COMMODITY LEAD.MEDM Anesthesia Postop Eval I: Summary Notes Anesthesia Complication No 06/22/24 08:29 COMMODITY LEAD.MEDM Anesthesia Complication Comment: Post-operative progress note pt spontaneously 06/22/24 08:29 COMMODITY LEAD.MEDM breathing Anesthesia: Postop Eval II Evaluation Mental status: Awake and Calm Pain Level: 0 nausea: No Vomiting: No Progress Note Post-operative progress note: pt taken back to icu placed on monitor and report given to BENZENE WASHER. patient was awake and responsive. Complications Anesthesia Complication: No
--- NOTE | 2024-06-22 08:37 | PCM.POSTANE2 ---
Anesthesia Postop Eval I Sum Postop Eval Completion status Anesthesia document: Postop Eval 1 completed: Yes Anesthesia Postop Eval I Summary Anesthesia Postop Eval I Summary: Anesthesia Postop Eval I: Assessment Summary Airway patent Yes 06/22/24 08:29 HOT KNIFE CUTTER.MEDM Spontaneous unlabored Yes 06/22/24 08:29 HOT KNIFE CUTTER.MEDM respirations Mental status Awake 06/22/24 08:29 HOT KNIFE CUTTER.MEDM nausea No 06/22/24 08:29 HOT KNIFE CUTTER.MEDM Vomiting No 06/22/24 08:29 HOT KNIFE CUTTER.MEDM Anesthesia Postop Eval I: Fluid Summary Crystalloid volume administer 100 06/22/24 08:29 HOT KNIFE CUTTER.MEDM (ml) Colloids volume administered ( ml) Blood Product volume administered (ml) Total IV fluid infused 100 06/22/24 08:29 HOT KNIFE CUTTER.MEDM Anesthesia Postop Eval I: Summary Notes Anesthesia Complication No 06/22/24 08:29 HOT KNIFE CUTTER.MEDM Anesthesia Complication Comment: Post-operative progress note pt spontaneously 06/22/24 08:29 HOT KNIFE CUTTER.MEDM breathing Anesthesia: Postop Eval II Evaluation Mental status: Awake and Calm Pain Level: 0 nausea: No Vomiting: No Progress Note Post-operative progress note: pt taken back to icu placed on monitor and report given to BLISS PRESS OPERATOR. patient was awake and responsive. Complications Anesthesia Complication: No
[2024-06-22 09:02] LABS: Absolute Lymphocyte Count 0.65 X10^3/uL (0.83-4.51); Basophil# 0.05 X10^3/uL; Basophil% 0.2 % (0-1); Eosinophil# 0.08 X10^3/uL; Eosinophils% 0.4 % (0-5); Hematocrit 23.9 % (37-47); Hemoglobin 7.7 g/dL (12.0-15.0); Lymphocyte # 0.65 X10^3/ul (0.83-4.51); Lymphocyte % 2.9 % (19-41); Mean Corp Hgb Conc 32.2 g/dL (32-36); Mean Corpuscular Hgb 28.7 pg (27.0-32.0); Mean Corpuscular Volume 89.2 fL (81-99); Mean Platelet Vol. 10.6 fl (6.2-12.0); Monocyte# 1.18 X10^3/uL; Monocyte% 5.2 % (0-10); NRBC Flagged by Analyzer 0.6 % (0-5); Neutrophil # 20.01 X10^3/uL (2.7-7.7); Neutrophil % 88.8 % (47-70); POSITIVE DIFFERENTIAL YES; Platelet Count 322 K/mm3 (150-450); RBC Distribution Width CV 17.2 % (11.6-14.6); RBC Distribution Width SD 52.9 fl (35.1-43.9); Red Blood Count 2.68 M/mm3 (4.2-5.4); White Blood Count 22.5 K/mm3 (4.4-11.0)
[2024-06-22 09:09] LABS: Differential Indicated SCAN CRITERIA MET
[2024-06-22 09:24] LABS: Phosphorus 2.9 mg/dL (2.5-4.9)
[2024-06-22 09:29] LABS: International Normalized Ratio 1.4; Prothrombin Time (Protime)PT. 17.1 SECONDS (11.7-14.9)
[2024-06-22] MEDS: Cefepime HCl 2 GM in 0.9% Normal Saline (100mL MB+) 100 ML IV (10:12)
[2024-06-22] MEDS: Furosemide 80 MG Tablet PO (10:17)
[2024-06-22 11:10] LABS: Acanthocytes RARE; Anisocytosis 1+; Differential Comment SCANNED; Macrocytosis 1+; Ovalocyte 1+; Platelet Estimate ADEQUATE (ADEQ); Polychromasia 1+; Schistocytes RARE
--- NOTE | 2024-06-22 12:15 | PCM.RX.CS ---
Consult Antibiotic Management Pharmacy has been consulted to manage selected antibiotic: Vancomycin Type of Intervention Type of Consult: Follow-up Suspected Infection Suspected Infection: Pneumonia Labs Labs: Sodium 139 mmol/L (136-145) 06/22/24 05:00 Potassium 4.9 mmol/L (3.5-5.1) 06/22/24 05:00 Chloride 109 mmol/L (98-107) H 06/22/24 05:00 Carbon Dioxide 22.0 mmol/L (21.0-32.0) 06/22/24 05:00 Anion Gap 8 (5-15) 06/22/24 05:00 BUN 95 mg/dL (7-18) H 06/22/24 05:00 Creatinine 2.33 mg/dL (0.55-1.02) H 06/22/24 05:00 Est GFR (MDRD) Af Amer 26 mL/min (>60) L 06/22/24 05:00 Est GFR (MDRD) Non-Af 22 mL/min (>60) L 06/22/24 05:00 BUN/Creatinine Ratio 40.8 RATIO (10-20) H 06/22/24 05:00 Glucose 107 mg/dL (74-106) H 06/22/24 05:00 Microbiology Microbiology: Microbiology 06/21/24 12:57 Urine, Catheterized Urine Culture - Preliminary Culture exhibits no growth. 06/21/24 12:57 Urine Catheter - Catheter Legionella Antigen - Final 06/21/24 12:57 Urine Catheter - Catheter Streptococcus pneumoniae Antigen (M - Final 06/21/24 14:35 Mucosa - Nasopharyngeal Respiratory Panel (PCR) - Final 06/21/24 13:07 Mucosa - Nose SARS-CoV-2, Influenza & RSV (PCR) - Final 06/21/24 09:40 Stool Stool Occult Blood (AALIYAH) - Final Goal Trough Goal Trough: 15-20 mcg/mL Pharmacy Plan for Drug Dosing Pharmacy Plan for Drug Dosing: DAILY ASSESSMENT Current Vancomycin Dose: pt was being renally dosed due to CrCl < 20 Number of Doses Received: x1 2000mg ER dose 06/21/24 at 1248 Current Renal Function: SrCr 2.33 (CrCl 21.04) Renal Function Trend: SrCr improving Lab/Micro: Any Change in Vanc Plan: due to improving renal function, recommend starting patient on an initial dose of 500mg q24h. Checking a trough prior to the total dose Pending Level: 06/23/24 at 1230 Pharmacy Service will continue to monitor and adjust dosing as required. Follow-Up Labs Follow-Up Labs: Trough: Vancomycin (06/23/24 at 1230)
[2024-06-22] MEDS: Acetaminophen 325 MG Tablet 650 MG PO (12:41)
[2024-06-22] MEDS: Vancomycin IV 500 MG/100 ML BAG 100 MG IV (12:47)
--- NOTE | 2024-06-22 12:58 | PN.CC_ITS ---
Objective Data Objective Data Vital Signs: Vital Signs Last response 3 Temperature 36.9 C 06/22/24 12:00 Temperature Source Temporal 06/22/24 12:00 Pulse Rate 89 06/22/24 12:00 Pulse Strength Weak (1+) 06/22/24 07:50 Respiratory Rate 17 06/22/24 12:00 Respiratory Effort Normal, Non-Labored 06/22/24 06:00 Respiratory Depth Normal 06/22/24 06:00 Respiratory Pattern Normal 06/22/24 06:00 Blood Pressure 96/56 L 06/22/24 12:00 Blood Pressure Mean 69 06/22/24 12:00 Blood Pressure Source Monitor 06/22/24 12:00 Blood Pressure Position Semi-Fowlers 06/22/24 12:00 Blood Pressure Location Left Arm 06/21/24 21:00 Pulse Ox 100 06/22/24 12:00 Oxygen Delivery Method Room Air 06/22/24 12:00 Oxygen Flow Rate (L/min) 2 06/22/24 08:29 I&O: I&O Last 24 Hours 3 06/21/24 06/22/24 06/22/24 23:59 11:59 23:59 Intake Total 2947.5 / 3482.5 1298.34 / 1298.34 Output Total 950 / 1450 1375 / 1375 Balance 1996.5 / 2032.5 -76.66 / -76.66 I&O: Total Stay 3 06/21/24 07:46 thru 06/22/24 11:03 Intake Total 4780.84 Output Total 2325 Balance 2455.84 Current Meds Ordered / Administered: Current meds ordered / Administered 3 Generic Name Dose Route Start Last Admin Trade Name Freq PRN Reason Stop Dose Admin Acetaminophen 650 mg 06/21/24 14:09 06/22/24 12:41 Acetaminophen 325 Mg Tablet PO 650 mg Q6H PRN PRN Administration Pain 1-10 Or Fever >100.7 Albuterol Sulfate 2.5 mg 06/21/24 14:09 Albuterol 2.5 Mg/3 Ml Vial.Neb. INHALATION Q2H PRN PRN SOB &/OR WHEEZING Furosemide 80 mg 06/22/24 10:00 06/22/24 10:17 Furosemide 80 Mg Tablet PO 80 mg DAILY LEONILA Administration Protocol Guaifenesin 10 ml 06/21/24 14:09 Guaifenesin 10 Ml Udc (200mg/10ml) PO Q4H PRN PRN COUGH Hydromorphone HCl 0.5 - 1 mg 06/21/24 14:09 Hydromorphone 1 Mg/Ml Syringe IV Q3H PRN PRN Pain Score 6-10 Hydromorphone HCl 0.5 - 1 mg 06/21/24 14:16 Hydromorphone 0.5 Mg/0.5 Ml Syringe IV Q3H PRN PRN Pain Score 6-10 Sodium Chloride 1,000 mls @ 75 mls/hr 06/21/24 14:09 06/22/24 05:01 IV 06/22/24 16:48 75 mls/hr .[id number] LEONILA Administration Protocol Vancomycin IV-PHARMACY TO DOSE 500 mls @ 250 mls/hr 06/21/24 14:09 1 each/ Sodium Chloride IV X1 PRN Rx to Dose Protocol Cefepime HCl 2 gm/ Sodium 100 mls @ 200 mls/hr 06/22/24 10:00 06/22/24 10:43 Chloride IV Infused Q24 LEONILA Infusion Pantoprazole Sodium 80 mg/ 100 mls @ 10 mls/hr 06/21/24 14:09 06/22/24 10:12 Sodium Chloride CONT INF 06/24/24 14:10 10 mls/hr Q10H LEONILA Administration Sodium Chloride 100 mls @ 15 mls/hr 06/21/24 14:14 IV .Q6H40M PRN Saline Flush Sodium Chloride 100 mls @ 15 mls/hr 06/21/24 14:14 IV .Q6H40M PRN SALINE FLUSH Sodium Chloride 100 mls @ 15 mls/hr 06/21/24 14:14 IV .Q6H40M PRN Additional IVPB Infusion Norepinephrine Bitartrate 8 mg 250 mls @ 9.375 mls/hr 06/21/24 16:47 06/21/24 19:40 / Sodium Chloride CONT INF Not Given .[id number] LEONILA Protocol 5 MCG/MIN Vancomycin HCl 500 mg in 100 mls @ 100 mls/hr 06/22/24 13:00 06/22/24 12:47 IV 100 mls/hr Q24H LEONILA Administration Levothyroxine Sodium 100 mcg 06/23/24 06:00 Levothyroxine 100 Mcg Tablet PO QODAY@0600 [facility] Levothyroxine Sodium 75 mcg 06/24/24 06:00 Levothyroxine 75 Mcg Tablet PO QODAY@0600 [facility] Melatonin 3 mg 06/21/24 14:09 Melatonin 3 Mg Tablet PO QHS PRN PRN INSOMNIA Ondansetron HCl 4 mg 06/21/24 14:09 Ondansetron 4 Mg/2 Ml Vial IV Q8H PRN PRN NAUSEA/VOMITING Oxycodone HCl 5 mg 06/21/24 14:09 Oxycodone 5 Mg Tablet PO Q4H PRN PRN Pain Score 4-10 Senna/Docusate Sodium 2 tablet 06/21/24 14:09 Senna/Docusate Sodium 1 Tablet PO BID PRN PRN Constipation Sodium Chloride 10 - 40 ml 06/21/24 14:14 0.9% Saline Lock 10 Ml Syringe IV UD PRN SALINE FLUSH Vancomycin Protocol 1 lab 06/23/24 11:30 Vancomycin Trough/Random Due MC 06/23/24 13:30 DAILY [facility] Lab / Micro Data Attestation: I reviewed the patient's lab results. 06/22/24 08:45 06/22/24 05:00 Labs: Laboratory Results - last 24 hr 06/21/24 09:50: Blood Type B NEGATIVE, Antibody Screen NEGATIVE, Crossmatch See Detail 06/21/24 09:50: Crossmatch See Detail 06/21/24 12:57: Urine Color Straw, Urine Clarity Sl. Cloudy, Urine pH 6.0, Ur Specific [place] 1.015, Urine Protein 15 H, Urine Glucose (UA) Normal, Urine Ketones Negative, Urine Occult Blood 10 H, Urine Nitrite Negative, Urine Bilirubin Negative, Urine Urobilinogen Normal, Ur Leukocyte Esterase 25 H, Urine RBC 0-5 SEEN, Urine WBC 0-5 SEEN, Ur Squamous Epith Cells 0-5 SEEN, Urine Bacteria 0 SEEN, Urine Mucus 0 SEEN 06/21/24 18:13: PT 24.2 H, INR 2.1, Lactic Acid 0.6, Troponin I High Sens 108 H 06/21/24 23:55: Hgb 6.5 L, Hct 19.7 L 06/22/24 05:00: Hgb 7.5 L, Hct 23.4 L, Sodium 139, Potassium 4.9, Chloride 109 H , Carbon Dioxide 22.0, Anion Gap 8, BUN 95 H, Creatinine 2.33 H, Estim Creat Clear Calc 21.04, Est GFR (MDRD) Af Amer 26 L, Est GFR (MDRD) Non-Af 22 L, B UN/Creatinine Ratio 40.8 H, Glucose 107 H, Calcium 8.6, Magnesium 2.4 06/22/24 08:45: WBC 22.5 H, RBC 2.68 L, Hgb 7.7 L 06/22/24 08:45: Hgb Cancelled, Hct 23.9 L 06/22/24 08:45: Hct Cancelled, MCV 89.2 D, MCH 28.7, MCHC 32.2, RDW Std Deviation 52.9 H, RDW Coeff of Linda 17.2 H, Plt Count 322, MPV 10.6, Immature Gran % (Auto) 2.500 H, Neut % (Auto) 88.8 H, Lymph % (Auto) 2.9 L, [place] % (Auto) 5.2, Eos % (Auto) 0.4, Baso % (Auto) 0.2, Absolute Neuts (auto) 20.0 H, Absolute Lymphs (auto) 0.65 L, Nucleated RBC % 0.6, Differential Comment SCANNED, Diff Path Review Cancelled, Platelet Estimate ADEQUATE, Polychromasia 1+, Anisocytosis 1+, Macrocytosis 1+, Ovalocytes 1+, Acanthocytes (Spur) RARE, Schistocytes RARE, PT 17.1 H, INR 1.4, Phosphorus 2.9 Micro: Microbiology 06/21/24 12:57 Urine, Catheterized Urine Culture - Preliminary Culture exhibits no growth. 06/21/24 12:57 Urine Catheter - Catheter Legionella Antigen - Final 06/21/24 12:57 Urine Catheter - Catheter Streptococcus pneumoniae Antigen (M - Final 06/21/24 14:35 Mucosa - Nasopharyngeal Respiratory Panel (PCR) - Final 06/21/24 13:07 Mucosa - Nose SARS-CoV-2, Influenza & RSV (PCR) - Final 06/21/24 09:40 Stool Stool Occult Blood (AALIYAH) - Final Imaging Radiology Impression Chest X-Ray 06/21/24 17:10 IMPRESSION: Left PICC with tip in the right atrium. Cardiomegaly with mild central pulmonary vascular congestion. Reading Location: [facility] Assessment and Plan . Assessment and plan: IMPRESSIONS: 1. Coumadin-induced coagulopathy with acute blood loss anemia due to ulcer disease s/p PRBCs and Vitamin K, EGD results as noted 3. Troponin elevation/history of atrial fibrillation/hypertrophic cardiomyopathy with reduced ejection fraction Likely secondary to demand ischemia . 4. Acute on chronic kidney disease Most likely prerenal in etiology in the setting of numbers 1 and 2. Anticipate improvement with stabilization of hemodynamics. Continue to monitor urine output. 5. History of hypothyroidism/hyperlipidemia/recent shoulder surgery Complicates care, management, recovery and prognosis. Continue supportive measures as noted above. RECOMMENDATIONS: 1. Continue antibiotics while awaiting culture finalization but low threshold to DC. 2. Vitamin K administration given, INR normalized 1.4 3. serial CBC 4. PPI therapy. 5. GI recs post EGD noted. Critical Care Time: 50 minutes The entirety of this encounter was done via Telemedicine Physical Exam Const alert, oriented x3 and no apparent distress General Appearance: cooperative and comfortable HEENT normocephalic Eyes PERRL Neck no lymphadenopathy and no JVD Subjective Subjective Looks quite good overall. Received 3 units PRBC overnight. EGD revealed ulcers, no interbntion undertaken apparently because of bleeding risk with coagulopathy.
[2024-06-22] MEDS: Ondansetron 4 MG/2 ML Vial IV (13:49)
[2024-06-22] MEDS: 0.9% Saline Lock 10 ML Syringe IV (16:09)
[2024-06-22 16:27] LABS: Hematocrit 24.8 % (37-47); Hemoglobin 7.9 g/dL (12.0-15.0)
--- NOTE | 2024-06-22 16:31 | CASEMGMT ---
Readmission Note: Index: 06/07-06/09/24. Dx: Reverse Right Total Shoulder Arthroplasty Readmission: 06/21/24. Dx: Sepsis, Severe Anemia From index admission, the pt was discharged home alone and the pt planned to f/u with Dr Mejia on 06/21 and initiate OP Tx subsequently. However, on 06/21 the pt presented back to the emergency department with progressive shortness of breath and and weakness. Per Dr Licona's note, the patient admitted to symptoms 13 days after her surgery. The pt has since noticed increasing shortness of breath with minimal activity. Pt also noticed swelling involving both lower extremities. Pt decided to return to [facility] ED with these worsening symptoms. See Care Management assessment completed on 06/21. Originally, the pt planned to return home at the time of DC. However, the pt was only able to ambulate 4 ft with therapy. Per SW today, the pt is agreeable to go to a SNF for further rehab. SW to follow.
[2024-06-23] VITALS (28 sets, daily range): BP systolic 87–159; BP diastolic 45–79; PULSE 73–96; RESP 11–23; TEMP 36.9–37.2; O2SAT 90–100; BMI 28.7
[2024-06-23] MEDS: Acetaminophen 325 MG Tablet 650 MG PO (00:01)
[2024-06-23] MEDS: Levothyroxine 100 MCG Tablet PO (05:14)
[2024-06-23 05:43] LABS: Absolute Lymphocyte Count 0.62 X10^3/uL (0.83-4.51); Absolute Neutrophil Count 14.8 X10^3/uL (2.0-7.7); Basophil# 0.04 X10^3/uL; Basophil% 0.2 % (0-1); Eosinophil# 0.13 X10^3/uL; Eosinophils% 0.8 % (0-5); Hematocrit 22.5 % (37-47); Hemoglobin 7.2 g/dL (12.0-15.0); Lymphocyte # 0.62 X10^3/ul (0.83-4.51); Lymphocyte % 3.6 % (19-41); Mean Corpuscular Hgb 29.4 pg (27.0-32.0); Mean Corpuscular Volume 91.8 fL (81-99); Mean Platelet Vol. 10.5 fl (6.2-12.0); Monocyte# 1.11 X10^3/uL; Monocyte% 6.5 % (0-10); NRBC Flagged by Analyzer 0.9 % (0-5); Neutrophil # 14.75 X10^3/uL (2.7-7.7); Neutrophil % 86.5 % (47-70); Platelet Count 315 K/mm3 (150-450); RBC Distribution Width CV 17.4 % (11.6-14.6); RBC Distribution Width SD 55.5 fl (35.1-43.9); Red Blood Count 2.45 M/mm3 (4.2-5.4); White Blood Count 17.1 K/mm3 (4.4-11.0)
[2024-06-23 05:51] LABS: International Normalized Ratio 1.3; Prothrombin Time (Protime)PT. 16.7 SECONDS (11.7-14.9)
[2024-06-23 06:01] LABS: Anion Gap 5 (5-15); BUN 81 mg/dL (7-18); BUN/Creat Ratio 35.2 RATIO (10-20); Calcium,Total 8.5 mg/dL (8.5-10.1); Chloride 110 mmol/L (98-107); EST Glomerular Filtration Rate 22 mL/min (>60); Est Glom Filt Rate - Afr Amer 26 mL/min (>60); Estimated Creatinine Clearance 21.17 ml/min; Glucose 106 mg/dL (74-106); Potassium 4.6 mmol/L (3.5-5.1); Sodium Level 139 mmol/L (136-145)
[2024-06-23] MEDS: Pantoprazole Sodium 80 MG in 0.9% Normal Saline (100mL Bag) 80 ML 10 MG CONT INF (06:04)
--- NOTE | 2024-06-23 07:17 | PN.HOSP_ITS ---
Reason for Visit Reason for Visit: Diagnoses Sepsis, unspecified organism (06/21/24) Anemia, unspecified (06/21/24) Hemorrhagic disorder due to extrinsic circulating anticoagulants (06/21/24) Chronic combined systolic (congestive) and diastolic (congestive) heart failure (06/21/24) Gastrointestinal hemorrhage, unspecified (06/21/24) Adverse effect of anticoagulants, initial encounter (06/21/24) Subjective Subjective Patient underwent EGD the day prior findings as documented with patient hemoglobin dropping to 7.2 and patient being relatively hypotensive and order was given for patient to be transfused with 1 unit PRBC Objective Data Objective Data Vital Signs: Vital Signs Temp Pulse Resp BP Pulse Ox O2 Del Method O2 Flow Rate 98.9 F 84 18 87/68 L 93 Room Air 2 06/23/24 06:00 06/23/24 07:00 06/23/24 07:00 06/23/24 07:00 06/23/24 07:00 06/23/24 07:00 06/23/24 05:00 Oxygen Flow Rate (L/min) 2 Oxygen Delivery Method Room Air Weight: 78.2 kg Body Mass Index (BMI) 28.7 Intake & Output: Intake and Output for Last 24 Hours 06/21/24 06/22/24 06/23/24 23:59 23:59 23:59 Intake Total 3482.5 / 3482.5 2857.09 / 2857.09 91.5 / 91.5 Output Total 950 / 1450 1825 / 1825 1000 / 1000 Balance 2532.5 / 2032.5 1032.09 / 1032.09 -908.5 / -908.5 Lab / Micro Data 06/23/24 05:00 06/23/24 05:00 Labs: Laboratory Results - last 24 hr 06/22/24 08:45: WBC 22.5 H, RBC 2.68 L, Hgb 7.7 L 06/22/24 08:45: Hgb Cancelled, Hct 23.9 L 06/22/24 08:45: Hct Cancelled, MCV 89.2 D, MCH 28.7, MCHC 32.2, RDW Std Deviation 52.9 H, RDW Coeff of Linda 17.2 H, Plt Count 322, MPV 10.6, Immature Gran % (Auto) 2.500 H, Neut % (Auto) 88.8 H, Lymph % (Auto) 2.9 L, [place] % (Auto) 5.2, Eos % (Auto) 0.4, Baso % (Auto) 0.2, Absolute Neuts (auto) 20.0 H, Absolute Lymphs (auto) 0.65 L, Nucleated RBC % 0.6, Differential Comment SCANNED, Diff Path Review Cancelled, Platelet Estimate ADEQUATE, Polychromasia 1+, Anisocytosis 1+, Macrocytosis 1+, Ovalocytes 1+, Acanthocytes (Spur) RARE, Schistocytes RARE, PT 17.1 H, INR 1.4, Phosphorus 2.9 06/22/24 16:00: Hgb 7.9 L, Hct 24.8 L 06/23/24 05:00: WBC 17.1 H, RBC 2.45 L, Hgb 7.2 L, Hct 22.5 L, MCV 91.8, MCH 29.4, MCHC 32.0, RDW Std Deviation 55.5 H, RDW Coeff of Linda 17.4 H, Plt Count 315, MPV 10.5, Immature Gran % (Auto) 2.400 H, Neut % (Auto) 86.5 H, Lymph % (Auto) 3.6 L, [place] % (Auto) 6.5, Eos % (Auto) 0.8, Baso % (Auto) 0.2, Absolute Neuts (auto) 14.8 H, Absolute Lymphs (auto) 0.62 L, Nucleated RBC % 0.9, PT 16.7 H, INR 1.3, Sodium 139, Potassium 4.6, Chloride 110 H, Carbon Dioxide 23.0, Anion Gap 5, BUN 81 H, Creatinine 2.30 H, Estim Creat Clear Calc 21.17, Est GFR (MDRD) Af Amer 26 L, Est GFR (MDRD) Non-Af 22 L, BUN/Creatinine Ratio 35.2 H, Glucose 106, Calcium 8.5 Micro: Microbiology 06/21/24 12:57 Urine, Catheterized Urine Culture - Preliminary Culture exhibits no growth. 06/21/24 12:57 Urine Catheter - Catheter Legionella Antigen - Final 06/21/24 12:57 Urine Catheter - Catheter Streptococcus pneumoniae Antigen (M - Final 06/21/24 14:35 Mucosa - Nasopharyngeal Respiratory Panel (PCR) - Final 06/21/24 13:07 Mucosa - Nose SARS-CoV-2, Influenza & RSV (PCR) - Final 06/21/24 09:40 Stool Stool Occult Blood (AALIYAH) - Final Physical Exam Narrative GENERAL: Frail looking HEENT: Atraumatic; normocephalic EYES; Anicteric, pallor of the conjunctiva NECK; supple, normal thyroid, RESPIRATORY: Diminished to auscultation CARDIOVASCULAR: Irregularly irregular GI: soft, normoactive bowel sounds, : No Renal angle tenderness; EXTREMITIES: Bipedal edema edema, no clubbing, MUSCULOSKELETAL: no muscle wasting NEURO: Awake; no lateralizing signs. SKIN: No Rash PSYCH; Flat affect Assessment & Plan Assessment/Plan (1) Warfarin-induced coagulopathy: (2) Sepsis: (3) Anemia: (4) Gastrointestinal bleeding, upper: (5) Chronic combined systolic and diastolic CHF (congestive heart failure): PLAN: Plan Patient is a 78-year-old lady who underwent rash shoulder total reverse arthroplasty on account of rotator cuff tear on 06/06/2024 presented back to the emergency department with progressive shortness of breath and and weakness 1. Sepsis ? Suspected to be secondary to healthcare acquired pneumonia patient presented with progressive generalized weakness dyspnea chills but no fever. Was found to have elevated WBC count as well as lactic acidosis. Patient has been admitted to the intensive care unit. Patient did not receive IV fluid resuscitation per protocol given her concomitant congestive heart failure. Patient was started on broad-spectrum antibiotic therapy after cultures have been obtained also did request for viral respiratory panel and COVID assay. Response to therapy being monitored with serial lactic acid levels ? 06/22/2024; patient did not require Levophed ? 06/23/2024; patient WBC count trending down 2. Acute blood loss anemia ? Suspected to be secondary to upper GI bleed exacerbated by use of systemic anticoagulation with warfarin. Patient was typed and crossmatched from the emergency department and order was given for patient to be transfused with 2 unit PRBC subsequently started on Protonix drip after receiving Protonix bolus. Admitted to the intensive care unit subsequent monitoring with serial H&H ordered consult placed to Dr. Jones from the ED ? 06/22/2024; patient did receive 3 unit PRBC transfusion hemoglobin this a.m. is 7.5 ? 06/23/2024; patient hemoglobin down to 7.2. EGD the day prior demonstrated No gross lesions in the entire esophagus. - Medium-sized hiatal hernia. - Non-bleeding gastric ulcer with no stigmata of bleeding. - Non-bleeding duodenal ulcer with no stigmata of bleeding. - No specimens collected. With patient being hypotensive and hemoglobin dropping to 7.2 and order was given for patient to be transfused with 1 unit. 3. Acute on chronic kidney disease stage III ? Patient did receive IV fluid resuscitation subsequent monitoring ordered 4. Hyperkalemia ? Secondary to patient worsening kidney function repeated potassium levels and if still elevated an order will be given for patient to receive Kayexalate 5. Coumadin induced coagulopathy ? Patient INR on admission was 8.8 and order was given for patient to receive vitamin K 6. Acute on chronic congestive heart failure with reduced ejection fraction ? Patient echo from 04/03/2024 demonstrated Normal LV size. The estimated ejection fraction is 40 %. There is moderate global hypokinesis of the left ventricle. The left atrium is severely enlarged. Pulmonary artery systolic pressure is 48 mmHg. Mallory : Akinetic. Anterior Mallory : Hypokinetic Mid-Anterior : Mildly hypokinetic ? Patient admitted to monitored bed monitoring strict input and output patient is on furosemide resumed cautiously given patient relatively low blood pressure 7. Hypothyroidism ? Patient is on levothyroxine home dose continued 8. Persistent A-fib ? Rate controlled on systemic anticoagulation with warfarin which is being held given her presentation 9. Dyslipidemia ?Patient is on statin therapy, continued at home dose 10. 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 On account of rotator cuff injury 11. Sick sinus syndrome ? Status post pacemaker placement DVT prophylaxis ? Patient already on Coumadin with supratherapeutic INR Time spent in the patient's overall evaluation,decision-making process, review of diagnostic data, adjustment of management, discussion with other providers, nursing nursing and ancillary staff involved in patient's care documentation, 50 minutes Charges/Coding Visit Charges Inpatient E&M: [id number] [place] [id number]
[2024-06-23] MEDS: Furosemide 80 MG Tablet PO (09:46)
[2024-06-23] MEDS: 0.9% Saline Lock 10 ML Syringe IV ×2 (09:46→18:00)
[2024-06-23] MEDS: Cefepime HCl 2 GM in 0.9% Normal Saline (100mL MB+) 100 ML IV (10:52)
--- NOTE | 2024-06-23 12:51 | PN.CC_ITS ---
Objective Data Objective Data Vital Signs: Vital Signs Last response 3 Temperature 37.2 C 06/23/24 06:00 Temperature Source Temporal 06/23/24 06:00 Pulse Rate 91 06/23/24 11:00 Pulse Strength Weak (1+) 06/22/24 21:29 Respiratory Rate 18 06/23/24 07:00 Respiratory Effort Normal, Non-Labored 06/23/24 05:42 Respiratory Depth Normal 06/23/24 05:42 Respiratory Pattern Normal 06/23/24 05:42 Blood Pressure 87/68 L 06/23/24 07:00 Blood Pressure Mean 74 06/23/24 07:00 Blood Pressure Source Monitor 06/23/24 07:00 Blood Pressure Position Semi-Fowlers 06/23/24 07:00 Blood Pressure Location Left Forearm 06/23/24 07:00 Pulse Ox 93 06/23/24 09:54 Oxygen Delivery Method Room Air 06/23/24 09:54 Oxygen Flow Rate (L/min) 2 06/23/24 05:00 I&O: I&O Last 24 Hours 3 06/22/24 06/23/24 06/23/24 23:59 11:59 23:59 Intake Total 1558.75 / 2857.09 91.5 / 91.5 Output Total 450 / 1825 1000 / 1000 Balance 1108.75 / 1032.09 -908.5 / -908.5 I&O: Total Stay 3 06/21/24 07:46 thru 06/23/24 06:04 Intake Total 6431.09 Output Total 3775 Balance 2656.09 Current Meds Ordered / Administered: Current meds ordered / Administered 3 Generic Name Dose Route Start Last Admin Trade Name Freq PRN Reason Stop Dose Admin Acetaminophen 650 mg 06/21/24 14:09 06/23/24 00:01 Acetaminophen 325 Mg Tablet PO 650 mg Q6H PRN PRN Administration Pain 1-10 Or Fever >100.7 Albuterol Sulfate 2.5 mg 06/21/24 14:09 Albuterol 2.5 Mg/3 Ml Vial.Neb. INHALATION Q2H PRN PRN SOB &/OR WHEEZING Furosemide 80 mg 06/22/24 10:00 06/23/24 09:46 Furosemide 80 Mg Tablet PO 80 mg DAILY LEONILA Administration Protocol Guaifenesin 10 ml 06/21/24 14:09 Guaifenesin 10 Ml Udc (200mg/10ml) PO Q4H PRN PRN COUGH Hydromorphone HCl 0.5 - 1 mg 06/21/24 14:09 Hydromorphone 1 Mg/Ml Syringe IV Q3H PRN PRN Pain Score 6-10 Hydromorphone HCl 0.5 - 1 mg 06/21/24 14:16 Hydromorphone 0.5 Mg/0.5 Ml Syringe IV Q3H PRN PRN Pain Score 6-10 Vancomycin IV-PHARMACY TO DOSE 500 mls @ 250 mls/hr 06/21/24 14:09 1 each/ Sodium Chloride IV X1 PRN Rx to Dose Protocol Cefepime HCl 2 gm/ Sodium 100 mls @ 200 mls/hr 06/22/24 10:00 06/23/24 10:52 Chloride IV 200 mls/hr Q24 LEONILA Administration Sodium Chloride 100 mls @ 15 mls/hr 06/21/24 14:14 IV .Q6H40M PRN Saline Flush Sodium Chloride 100 mls @ 15 mls/hr 06/21/24 14:14 IV .Q6H40M PRN SALINE FLUSH Sodium Chloride 100 mls @ 15 mls/hr 06/21/24 14:14 IV .Q6H40M PRN Additional IVPB Infusion Norepinephrine Bitartrate 8 mg 250 mls @ 9.375 mls/hr 06/21/24 16:47 06/22/24 20:50 / Sodium Chloride CONT INF Not Given .[id number] LEONILA Protocol 5 MCG/MIN Vancomycin HCl 500 mg in 100 mls @ 100 mls/hr 06/22/24 13:00 06/22/24 13:52 IV Infused Q24H LEONILA Infusion Levothyroxine Sodium 100 mcg 06/23/24 06:00 06/23/24 05:14 Levothyroxine 100 Mcg Tablet PO 100 mcg QODAY@0600 LEONILA Administration Levothyroxine Sodium 75 mcg 06/24/24 06:00 Levothyroxine 75 Mcg Tablet PO QODAY@0600 LEONILA Melatonin 3 mg 06/21/24 14:09 Melatonin 3 Mg Tablet PO QHS PRN PRN INSOMNIA Ondansetron HCl 4 mg 06/21/24 14:09 06/22/24 13:49 Ondansetron 4 Mg/2 Ml Vial IV 4 mg Q8H PRN PRN Administration NAUSEA/VOMITING Oxycodone HCl 5 mg 06/21/24 14:09 Oxycodone 5 Mg Tablet PO Q4H PRN PRN Pain Score 4-10 Pantoprazole Sodium 40 mg 06/23/24 22:00 Pantoprazole Sodium 40 Mg Tablet PO BID COUNT INCLUDES THE [facility] Senna/Docusate Sodium 2 tablet 06/21/24 14:09 Senna/Docusate Sodium 1 Tablet PO BID PRN PRN Constipation Sodium Chloride 10 - 40 ml 06/21/24 14:14 06/23/24 09:46 0.9% Saline Lock 10 Ml Syringe IV 20 ml UD PRN Administration SALINE FLUSH Vancomycin Protocol 1 lab 06/23/24 11:30 Vancomycin Trough/Random Due MC 06/23/24 13:30 DAILY COUNT INCLUDES THE [facility] Lab / Micro Data Attestation: I reviewed the patient's lab results. 06/23/24 05:00 06/23/24 05:00 Labs: Laboratory Results - last 24 hr 06/21/24 09:50: Crossmatch See Detail 06/22/24 16:00: Hgb 7.9 L, Hct 24.8 L 06/23/24 05:00: WBC 17.1 H, RBC 2.45 L, Hgb 7.2 L, Hct 22.5 L, MCV 91.8, MCH 29.4, MCHC 32.0, RDW Std Deviation 55.5 H, RDW Coeff of Linda 17.4 H, Plt Count 315, MPV 10.5, Immature Gran % (Auto) 2.400 H, Neut % (Auto) 86.5 H, Lymph % (Auto) 3.6 L, [place] % (Auto) 6.5, Eos % (Auto) 0.8, Baso % (Auto) 0.2, Absolute Neuts (auto) 14.8 H, Absolute Lymphs (auto) 0.62 L, Nucleated RBC % 0.9, PT 16.7 H, INR 1.3, Sodium 139, Potassium 4.6, Chloride 110 H, Carbon Dioxide 23.0, Anion Gap 5, BUN 81 H, Creatinine 2.30 H, Estim Creat Clear Calc 21.17, Est GFR (MDRD) Af Amer 26 L, Est GFR (MDRD) Non-Af 22 L, BUN/Creatinine Ratio 35.2 H, Glucose 106, Calcium 8.5 Micro: Microbiology 06/21/24 10:53 Blood Culture (Wb) - Anticubital Left Blood Culture - Preliminary No growth in 48 hours. 06/21/24 10:53 Blood Culture (Wb) - Arm Left Blood Culture - Preliminary No growth in 48 hours. 06/21/24 12:57 Urine, Catheterized Urine Culture - Final Culture exhibits no growth. Assessment and Plan . Assessment and plan: IMPRESSIONS: 1. Coumadin-induced coagulopathy with acute blood loss anemia due to ulcer disease s/p PRBCs and Vitamin K, EGD results as noted 3. Troponin elevation/history of atrial fibrillation/hypertrophic cardiomyopathy with reduced ejection fraction Likely secondary to demand ischemia . 4. Acute on chronic kidney disease continues with elevated cvreatinine 2.3 in spite of volume resuscitation and clinical improvement. Concerned for this or basline renal dysfunction. Follow. 5. History of hypothyroidism/hyperlipidemia/recent shoulder surgery Complicates care, management, recovery and prognosis. Continue supportive measures as noted above. RECOMMENDATIONS: 1. DC antibiotics 2. Vitamin K administration given, INR normalized 1.4 3. serial CBC 4. PPI therapy. 5. GI recs post EGD noted. Critical Care Time: 25 minutes The entirety of this encounter was done via Telemedicine Physical Exam Const alert, oriented x3 and no apparent distress HEENT normocephalic Eyes PERRL Neck no JVD Resp normal respiratory effort Auscultation: clear to auscultation bilaterally Cardio regular rate Subjective Subjective Looks good, no evidence of ongoing bleeding reported. Eating breakfast when seen.
[2024-06-23 13:01] LABS: Vancomycin, Trough Level 17.5 ug/mL (5.0-15.0)
[2024-06-23] MEDS: Furosemide 40 MG/4 ML Vial IV (14:20)
[2024-06-23] MEDS: Vancomycin Trough/Random Due 1 LAB MC (14:21)
[2024-06-23] MEDS: Vancomycin IV 500 MG/100 ML BAG 100 MG IV (14:21)
[2024-06-23] MEDS: Alteplase 2 MG/2 ML Vial IV ×3 (14:48→19:52)
--- NOTE | 2024-06-23 16:37 | PCM.RX.CS ---
Consult Antibiotic Management Pharmacy has been consulted to manage selected antibiotic: Vancomycin Type of Intervention Type of Consult: Follow-up Suspected Infection Suspected Infection: Pneumonia Labs Labs: Sodium 139 mmol/L (136-145) 06/23/24 05:00 Potassium 4.6 mmol/L (3.5-5.1) 06/23/24 05:00 Chloride 110 mmol/L (98-107) H 06/23/24 05:00 Carbon Dioxide 23.0 mmol/L (21.0-32.0) 06/23/24 05:00 Anion Gap 5 (5-15) 06/23/24 05:00 BUN 81 mg/dL (7-18) H 06/23/24 05:00 Creatinine 2.30 mg/dL (0.55-1.02) H 06/23/24 05:00 Est GFR (MDRD) Af Amer 26 mL/min (>60) L 06/23/24 05:00 Est GFR (MDRD) Non-Af 22 mL/min (>60) L 06/23/24 05:00 BUN/Creatinine Ratio 35.2 RATIO (10-20) H 06/23/24 05:00 Glucose 106 mg/dL (74-106) 06/23/24 05:00 Vancomycin Trough 17.5 ug/mL (5.0-15.0) H 06/23/24 12:30 Microbiology Microbiology: Microbiology 06/21/24 10:53 Blood Culture (Wb) - Anticubital Left Blood Culture - Preliminary No growth in 48 hours. 06/21/24 10:53 Blood Culture (Wb) - Arm Left Blood Culture - Preliminary No growth in 48 hours. 06/21/24 12:57 Urine, Catheterized Urine Culture - Final Culture exhibits no growth. 06/21/24 12:57 Urine Catheter - Catheter Legionella Antigen - Final 06/21/24 12:57 Urine Catheter - Catheter Streptococcus pneumoniae Antigen (M - Final 06/21/24 14:35 Mucosa - Nasopharyngeal Respiratory Panel (PCR) - Final 06/21/24 13:07 Mucosa - Nose SARS-CoV-2, Influenza & RSV (PCR) - Final 06/21/24 09:40 Stool Stool Occult Blood (AALIYAH) - Final Goal Trough Goal Trough: 15-20 mcg/mL Pharmacy Plan for Drug Dosing Pharmacy Plan for Drug Dosing: VANCOMYCIN LEVEL RECEIVED Current Vancomycin Dose: 500mg q24h (1300) Number of Doses Received: x1 2000mg ER dose, x1 500mg dose Vancomycin Level: 17.5 (drawn 06/23 at 1230) Hours Since Last Dose: 24 hours since last 500mg dose Renal Function: SrCr 2.3 Renal Function Trend: SrCr currently stable, but has improved from 2.82 on 06/21 Lab/Micro: Vancomycin Plan/Comments: resulted trough of 17.5 is within the ordered goal trough range of 15-20. recommend continuing dose of 500mg q24h and checking a trough in 4 more doses Pending Level: 06/25/24 at 1230 Pharmacy Service will continue to monitor and adjust dosing as required. Follow-Up Labs Follow-Up Labs: Trough: Vancomycin (06/25/24 at 1230)
[2024-06-23 18:07] LABS: Hematocrit 26.9 % (37-47); Hemoglobin 8.5 g/dL (12.0-15.0)
[2024-06-23] MEDS: Pantoprazole Sodium 40 MG Tablet PO (21:08)
[2024-06-24] VITALS (14 sets, daily range): BP systolic 103–141; BP diastolic 51–94; PULSE 59–97; RESP 14–25; TEMP 36.6–37.2; O2SAT 91–100; BMI 28.1
[2024-06-24 04:53] LABS: Absolute Lymphocyte Count 0.43 X10^3/uL (0.83-4.51); Absolute Neutrophil Count 10.2 X10^3/uL (2.0-7.7); Basophil# 0.05 X10^3/uL; Basophil% 0.4 % (0-1); Eosinophil# 0.15 X10^3/uL; Eosinophils% 1.2 % (0-5); Hematocrit 25.3 % (37-47); Hemoglobin 8.1 g/dL (12.0-15.0); Lymphocyte # 0.43 X10^3/ul (0.83-4.51); Lymphocyte % 3.6 % (19-41); Mean Corpuscular Hgb 29.3 pg (27.0-32.0); Mean Corpuscular Volume 91.7 fL (81-99); Mean Platelet Vol. 10.5 fl (6.2-12.0); Monocyte# 0.98 X10^3/uL; Monocyte% 8.1 % (0-10); NRBC Flagged by Analyzer 0.5 % (0-5); Neutrophil # 10.22 X10^3/uL (2.7-7.7); POSITIVE DIFFERENTIAL YES; Platelet Count 304 K/mm3 (150-450); RBC Distribution Width CV 17.1 % (11.6-14.6); RBC Distribution Width SD 52.8 fl (35.1-43.9); Red Blood Count 2.76 M/mm3 (4.2-5.4)
[2024-06-24 05:09] LABS: Anion Gap 7 (5-15); BUN 68 mg/dL (7-18); BUN/Creat Ratio 31.6 RATIO (10-20); Calcium,Total 8.3 mg/dL (8.5-10.1); Chloride 107 mmol/L (98-107); Creatinine, Serum 2.15 mg/dL (0.55-1.02); EST Glomerular Filtration Rate 24 mL/min (>60); Est Glom Filt Rate - Afr Amer 29 mL/min (>60); Estimated Creatinine Clearance 22.65 ml/min; Glucose 106 mg/dL (74-106); International Normalized Ratio 1.3; Potassium 3.9 mmol/L (3.5-5.1); Prothrombin Time (Protime)PT. 16.1 SECONDS (11.7-14.9); Sodium Level 138 mmol/L (136-145)
[2024-06-24] MEDS: Levothyroxine 75 MCG Tablet PO (06:20)
--- NOTE | 2024-06-24 08:11 | PCM.PN.INT ---
Assessment & Plan Assessment/Plan (1) Warfarin-induced coagulopathy: PLAN: Plan RECOMMENDATIONS: 1. Continue PPI therapy as ordered. 2. Continue to monitor H&H and transfuse if hemoglobin drops below 7 g/dL. 3. Encourage incentive spirometer use and mobilize patient as tolerated. 4. Will sign off from a critical care perspective. Please call with any additional questions. IMPRESSIONS: 1. Coumadin-induced coagulopathy with anemia Clinically stable at this time following transfusion of blood products. Gastroenterology evaluation, including EGD, did demonstrate nonbleeding gastric and duodenal ulcers. The patient will be continued on PPI therapy. Although there were initial concerns for possible sepsis upon presentation to the hospital, no source of infection was ever identified. Therefore, sepsis has been ruled out. 2. Troponin elevation/history of atrial fibrillation/hypertrophic cardiomyopathy with reduced ejection fraction Likely secondary to demand ischemia in the setting of numbers 1 and 2. 3. Acute on chronic kidney disease Improved. Most likely prerenal in etiology in the setting of numbers 1 and 2. Continue to monitor urine output. No current indication for renal replacement therapy. 4. History of hypothyroidism/hyperlipidemia/recent shoulder surgery Complicates care, management, recovery and prognosis. Continue supportive measures as noted above. This note was generated with [employer] dictation software. It may contain incorrect words, spelling, and punctuation that were not noted in checking the note before signing. Subjective Subjective The patient was seen and examined at the bedside this morning. Events from the last 24 hours have been reviewed. The patient is currently afebrile, hemodynamically stable and maintaining appropriate oxygen saturations on room air. White blood cell count this morning was noted to be 12,000 with a hemoglobin of 8.1 g/dL and platelet count of 304,000. INR was noted to be 1.3. Chemistry profile was notable for a creatinine of 2.15. The patient did undergo successful endoscopic evaluation on June 22, which demonstrated a medium sized hiatal hernia and nonbleeding gastric and duodenal ulcers. Objective Data Objective Data The patient's most recent lab work, culture data and imaging studies have all been personally reviewed. Surface echocardiogram from April 2024 demonstrated an ejection fraction of 40% and a pulmonary artery systolic pressure of 48 mmHg. Infectious workup has been unrevealing to date. Vital Signs: Vital Signs Temp Pulse Resp BP Pulse Ox O2 Del Method O2 Flow Rate 98.5 F 84 16 139/51 H 97 Room Air 2 06/24/24 04:00 06/24/24 07:00 06/24/24 07:00 06/24/24 07:00 06/24/24 07:00 06/24/24 07:00 06/24/24 05:00 Oxygen Flow Rate (L/min) 2 Oxygen Delivery Method Room Air Weight: 169 lb 5.04 oz Body Mass Index (BMI) 28.1 Intake & Output: Intake and Output for Last 24 Hours 06/22/24 06/23/24 06/24/24 23:59 23:59 23:59 Intake Total 2857.09 / 2857.09 971.5 / 971.5 Output Total 1825 / 1825 3225 / 3225 1350 / 1350 Balance 1032.09 / 1032.09 -2253.5 / -2253.5 -1350 / -1350 Lab / Micro Data Attestation: I reviewed the patient's lab results. 06/24/24 04:40 06/24/24 04:40 Labs: Laboratory Results - last 24 hr 06/21/24 09:50: Crossmatch See Detail 06/23/24 12:30: Vancomycin Trough 17.5 H 06/23/24 18:00: Hgb 8.5 L, Hct 26.9 L 06/24/24 04:40: WBC 12.0 H, RBC 2.76 L, Hgb 8.1 L, Hct 25.3 L, MCV 91.7, MCH 29.3, MCHC 32.0, RDW Std Deviation 52.8 H, RDW Coeff of Linda 17.1 H, Plt Count 304, MPV 10.5, Immature Gran % (Auto) 1.700 H, Neut % (Auto) 85.0 H, Lymph % (Auto) 3.6 L, [place] % (Auto) 8.1, Eos % (Auto) 1.2, Baso % (Auto) 0.4, Absolute Neuts (auto) 10.2 H, Absolute Lymphs (auto) 0.43 L, Nucleated RBC % 0.5, PT 16.1 H, INR 1.3, Sodium 138, Potassium 3.9, Chloride 107, Carbon Dioxide 25.0, Anion Gap 7, BUN 68 H, Creatinine 2.15 H, Estim Creat Clear Calc 22.65, Est GFR (MDRD) Af Amer 29 L, Est GFR (MDRD) Non-Af 24 L, BUN/Creatinine Ratio 31.6 H, Glucose 106, Calcium 8.3 L Micro: Microbiology 06/21/24 10:53 Blood Culture (Wb) - Anticubital Left Blood Culture - Preliminary No growth in 48 hours. 06/21/24 10:53 Blood Culture (Wb) - Arm Left Blood Culture - Preliminary No growth in 48 hours. 06/21/24 12:57 Urine, Catheterized Urine Culture - Final Culture exhibits no growth. 06/21/24 12:57 Urine Catheter - Catheter Legionella Antigen - Final 06/21/24 12:57 Urine Catheter - Catheter Streptococcus pneumoniae Antigen (M - Final 06/21/24 14:35 Mucosa - Nasopharyngeal Respiratory Panel (PCR) - Final 06/21/24 13:07 Mucosa - Nose SARS-CoV-2, Influenza & RSV (PCR) - Final 06/21/24 09:40 Stool Stool Occult Blood (AALIYAH) - Final Physical Exam Const alert, oriented x3 and no apparent distress Constitutional Narrative: Sitting in bedside recliner. General Appearance: cooperative HEENT normocephalic, head/scalp atraumatic and moist oral mucous membranes Eyes PERRL, EOMs intact bilaterally and conjunctivae normal Neck supple General: trachea midline Chest inspection of chest normal Resp normal respiratory effort Auscultation: Negative for rales, rhonchi or wheezes Cardio regular rate, regular rhythm, S1 normal heart sound and S2 normal heart sound GI soft to palpation and non-tender Extremity General Extremity: edema; Negative for clubbing Skin no rashes or lesions noted Neuro CN's II-XII intact bilaterally, moves all extremities and no focal motor deficits Psych cooperative and affect normal Charges/Coding Visit Charges Inpatient E&M: 79731 Subs Hosp L2
[2024-06-24] MEDS: Acetaminophen 325 MG Tablet 650 MG PO ×2 (08:45→21:23)
[2024-06-24] MEDS: Cefepime HCl 2 GM in 0.9% Normal Saline (100mL MB+) 100 ML IV (09:19)
[2024-06-24] MEDS: Pantoprazole Sodium 40 MG Tablet PO ×2 (09:20→21:23)
[2024-06-24] MEDS: 0.9% Saline Lock 10 ML Syringe IV ×2 (09:20→12:54)
[2024-06-24] MEDS: Furosemide 80 MG Tablet PO (09:20)
[2024-06-24] MEDS: Senna/Docusate Sodium 1 Tablet 2 TABLET PO (10:31)
--- NOTE | 2024-06-24 11:14 | PCM.PN.HOSP ---
Subjective Subjective Doing well, no issues overnight Objective Data Objective Data Vital Signs: Vital Signs Temp Pulse Resp BP Pulse Ox O2 Del Method O2 Flow Rate 98.4 F 94 19 H 141/94 H 97 Room Air 2 06/24/24 08:00 06/24/24 08:00 06/24/24 08:00 06/24/24 08:00 06/24/24 08:00 06/24/24 08:00 06/24/24 05:00 Oxygen Flow Rate (L/min) 2 Oxygen Delivery Method Room Air Weight: 169 lb 5.04 oz Body Mass Index (BMI) 28.1 Intake & Output: Intake and Output for Last 24 Hours 06/23/24 06/24/24 06/25/24 03:59 03:59 03:59 Intake Total 2763.42 / 2763.42 971.5 / 971.5 340 / 340 Output Total 1325 / 1325 4325 / 4325 250 / 250 Balance 1438.42 / 1438.42 -3353.5 / -3353.5 90 / 90 Lab / Micro Data 06/24/24 04:40 06/24/24 04:40 Labs: Laboratory Results - last 24 hr 06/21/24 09:50: Crossmatch See Detail 06/23/24 12:30: Vancomycin Trough 17.5 H 06/23/24 18:00: Hgb 8.5 L, Hct 26.9 L 06/24/24 04:40: WBC 12.0 H, RBC 2.76 L, Hgb 8.1 L, Hct 25.3 L, MCV 91.7, MCH 29.3, MCHC 32.0, RDW Std Deviation 52.8 H, RDW Coeff of Linda 17.1 H, Plt Count 304, MPV 10.5, Immature Gran % (Auto) 1.700 H, Neut % (Auto) 85.0 H, Lymph % (Auto) 3.6 L, [place] % (Auto) 8.1, Eos % (Auto) 1.2, Baso % (Auto) 0.4, Absolute Neuts (auto) 10.2 H, Absolute Lymphs (auto) 0.43 L, Nucleated RBC % 0.5, PT 16.1 H, INR 1.3, Sodium 138, Potassium 3.9, Chloride 107, Carbon Dioxide 25.0, Anion Gap 7, BUN 68 H, Creatinine 2.15 H, Estim Creat Clear Calc 22.65, Est GFR (MDRD) Af Amer 29 L, Est GFR (MDRD) Non-Af 24 L, BUN/Creatinine Ratio 31.6 H, Glucose 106, Calcium 8.3 L Micro: Microbiology 06/21/24 10:53 Blood Culture (Wb) - Anticubital Left Blood Culture - Preliminary No growth in 48 hours. 06/21/24 10:53 Blood Culture (Wb) - Arm Left Blood Culture - Preliminary No growth in 48 hours. 06/21/24 12:57 Urine, Catheterized Urine Culture - Final Culture exhibits no growth. 06/21/24 12:57 Urine Catheter - Catheter Legionella Antigen - Final 06/21/24 12:57 Urine Catheter - Catheter Streptococcus pneumoniae Antigen (M - Final 06/21/24 14:35 Mucosa - Nasopharyngeal Respiratory Panel (PCR) - Final 06/21/24 13:07 Mucosa - Nose SARS-CoV-2, Influenza & RSV (PCR) - Final 06/21/24 09:40 Stool Stool Occult Blood (AALIYAH) - Final Physical Exam Narrative General: Alert, Oriented x3, Cooperative, No apparent distress HEENT: Atraumatic, PERRLA, EOMI, Normocephalic Oral: Moist Mucosa Neck: Supple, No JVD Lungs: Diminished, Normal air movement, No rhonchi, No wheeze, No rales Cardiovascular: Regular rate, Regular Rhythm, Normal S1, Normal S2, No murmurs Abdomen: Soft, Non Tender, Non-Distended, No Hepato-splenomegaly Extremities: Edema, Capillary Refill Less than 3 Seconds Skin: No rashes, No breakdown Musculoskeletal: No Tenderness to Palpation of Joints or Extremities Neurological: No focal neurological deficits, Motor Exam 5/5 strength throughout, Sensory exam intact to light touch and pain Psych/Mental Status: Normal Affect, Appropriate Assessment & Plan Assessment/Plan (1) Warfarin-induced coagulopathy: (2) Sepsis: (3) Anemia: (4) Gastrointestinal bleeding, upper: (5) Chronic combined systolic and diastolic CHF (congestive heart failure): PLAN: Plan 1. Sepsis ? Suspected to be secondary to healthcare acquired pneumonia patient presented with progressive generalized weakness dyspnea chills but no fever. Was found to have elevated WBC count as well as lactic acidosis. Patient has been admitted to the intensive care unit. Patient did not receive IV fluid resuscitation per protocol given her concomitant congestive heart failure. Patient was started on broad-spectrum antibiotic therapy after cultures have been obtained also did request for viral respiratory panel and COVID assay. Response to therapy being monitored with serial lactic acid levels ? 06/22/2024; patient did not require Levophed ? 06/23/2024; patient WBC count trending down 06/24/2024: Will narrow her antibiotics 2. Acute blood loss anemia ? Suspected to be secondary to upper GI bleed exacerbated by use of systemic anticoagulation with warfarin. Patient was typed and crossmatched from the emergency department and order was given for patient to be transfused with 2 unit PRBC subsequently started on Protonix drip after receiving Protonix bolus. Admitted to the intensive care unit subsequent monitoring with serial H&H ordered consult placed to Dr. Jones from the ED ? 06/22/2024; patient did receive 3 unit PRBC transfusion hemoglobin this a.m. is 7.5 ? 06/23/2024; patient hemoglobin down to 7.2. EGD the day prior demonstrated No gross lesions in the entire esophagus. - Medium-sized hiatal hernia. - Non-bleeding gastric ulcer with no stigmata of bleeding. - Non-bleeding duodenal ulcer with no stigmata of bleeding. - No specimens collected. With patient being hypotensive and hemoglobin dropping to 7.2 and order was given for patient to be transfused with 1 unit. 06/24/2024: Recheck H&H this afternoon 3. Acute on chronic kidney disease stage III ? Patient did receive IV fluid resuscitation subsequent monitoring ordered 06/24/2024: This appears to be improving 4. Hyperkalemia ?Resolved 5. Coumadin induced coagulopathy ? Patient INR on admission was 8.8 and order was given for patient to receive vitamin K 06/24/2024: Will transition to Eliquis on discharge for her A-fib, INR is normalized to 1.3 6. Acute on chronic congestive heart failure with reduced ejection fraction ? Patient echo from 04/03/2024 demonstrated Normal LV size. The estimated ejection fraction is 40 %. There is moderate global hypokinesis of the left ventricle. The left atrium is severely enlarged. Pulmonary artery systolic pressure is 48 mmHg. [place] : Akinetic. Anterior [place] : Hypokinetic Mid-Anterior : Mildly hypokinetic ? Patient admitted to monitored bed monitoring strict input and output patient is on furosemide resumed cautiously given patient relatively low blood pressure 7. Hypothyroidism ? Patient is on levothyroxine home dose continued 8. Persistent A-fib ? Rate controlled on systemic anticoagulation with warfarin which is being held given her presentation 06/24/2024: Will transition to Eliquis on discharge for her A-fib 9. Dyslipidemia ?Patient is on statin therapy, continued at home dose 10. 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 On account of rotator cuff injury 11. Sick sinus syndrome ? Status post pacemaker placement DVT: SCDs Charges/Coding Visit Charges Inpatient E&M: 74114 Subs Hosp L2
--- NOTE | 2024-06-24 11:46 | CASEMGMT ---
Social Work- ROBERTO spoke with Humaira, the caregiver who reports that she is there 4 days a week and can increase to daily if needed. Humaira reports that she does personal hygiene for pt, as well as assisting with other needed tasks/care. The pt has a live-in friend Steffi who assists with toileting and all household tasks. Pt has 20-25 steps from couch to bathroom according to Humaira, who feels with pt able to ambulate 20-20 feet with therapy that they could manage at home just fine. The preference of caregiver would be in-home therapy. RNCM updated. ROBERTO remains available to follow for needs. LOUISA Abel
--- NOTE | 2024-06-24 12:09 | CASEMGMT ---
Addendum entered by Gael Ward 06/24/24 13:42: Serena from [facility] states that they are able to accept for SOC date TBD contingent on pt DC date. CM to follow. Original Note: See SW, PT, and OT notes. This RN CM to pt room at this time to discuss DC planning. Pt A&Ox4 and resting comfortably in bed and is calm. Pt states that she wants to and feels safe returning home with her caregiver and friend once she is medically ready. Pt states that she would love [facility]. At this time, the pt declines wanting to review a list of local in-network C agencies and states that she would prefer to go through [facility]. TC to Serena and referral made for SN, PT and OT. CM to follow.
[2024-06-24] MEDS: Azithromycin 250 MG Tablet 500 MG PO (12:32)
[2024-06-24 13:08] LABS: Hemoglobin 8.7 g/dL (12.0-15.0)
[2024-06-24 13:40] LABS: Pathologist Review Reviewed
[2024-06-24] MEDS: Cefdinir 300 MG Capsule PO (13:41)
--- NOTE | 2024-06-24 14:44 | CHAPLAIN ---
Type of Pastoral Visit _x__ Initial Visit ___ Follow-up Visit ___ On-call Visit ___ General Patient Visit ___ Spiritual Assessment ___ Family Conference ___ Bereavement ___ Rapid Response ___ Code Blue ___ Other (describe below) Pastoral Care Referral From _x__ Patient ___ Family ___ Nurse ___ Physician ___ Dairy Department Manager ___ Development Expert ___ Other (describe below) Sacrament/Intervention _x__ Active listening ___ Anointing ___ Temple ___ Bereavement ___ Communion _x__ Shannon exploration ___ _x__ Life review _x__ Prayer ___ Reconciliation ___ Sacrament of Sick ___ Supportive presence ___ Wedding ___ Other (describe below) Pastoral Comments patient acknowledges that she was critically ill and almost but is now much better; pt states several times God wasn't finished with me yet or I have more to do or God has blessed me to live longer; pt acknowledges that shannon in God has been a big help to her especially as she has lost her and both of her children; pt speaks of good friends that are very helpful to her; pt is talkative and expresses appreciation for the time given to her; pt welcomes a prayer for support as well
--- NOTE | 2024-06-24 16:51 | PCM.PN.BLA ---
Progress Note This is a 78-year-old female who is approximately 2 weeks status post right reverse shoulder arthroplasty with myself. She was admitted over the weekend with anemia and supratherapeutic INR. She underwent EGD which revealed stomach ulcers as well. She states her shoulder feels well. She has been very strict about not using her arm. She denies any pain. She feels Tylenol is adequate when she does have any pain. She rates her pain a 0 out of 10 at time of my examination. Physical Exam Narrative General - A&Ox3, NAD. VSS/AF. Right upper Extremity - SILT & 5/5 in radial, ulnar, musculocutaneous, axillary, and median nerve distributions. Radial, ulnar pulses 2+. Compartments soft and compressible. BCR in finger tips. Well-healing deltopectoral incision. Ecchymosis noted diffusely without significant fluctuance around the incision. Edema is noted in the right hand. Assessment & Plan Assessment/Plan (1) S/p reverse total shoulder arthroplasty: QUALIFIERS: Laterality: right Qualified Code(s): Z96.611 - Presence of right artificial shoulder joint PLAN: 2 weeks status post reverse shoulder arthroplasty -Right shoulder appears to be functioning well. She has significant ecchymosis was ice expect is due to her supratherapeutic INR. No signs or symptoms of infection of the right shoulder acute postop complication. She may remove the sling in bed and use the arm for activities such as eating and personal hygiene. I recommended wearing the sling during transfers. We will plan for outpatient therapy the to start when she is discharged as this was planned to start last week. She will follow-up for a 6-week follow-up at our office. Please not hesitate to call if any questions or concerns arise.
[2024-06-25 01:00] VITALS: PULSE 71
[2024-06-25 02:00] VITALS: BP 110/56; PULSE 89; RESP 18; TEMP 36.4; O2SAT 97
[2024-06-25] MEDS: Levothyroxine 100 MCG Tablet PO (05:07)
[2024-06-25 05:09] VITALS: BMI 28.7
[2024-06-25 07:27] LABS: Absolute Lymphocyte Count 0.47 X10^3/uL (0.83-4.51); Absolute Neutrophil Count 10.1 X10^3/uL (2.0-7.7); Basophil# 0.05 X10^3/uL; Basophil% 0.4 % (0-1); Eosinophil# 0.11 X10^3/uL; Eosinophils% 0.9 % (0-5); Hematocrit 27.5 % (37-47); Hemoglobin 8.8 g/dL (12.0-15.0); Lymphocyte # 0.47 X10^3/ul (0.83-4.51); Lymphocyte % 3.9 % (19-41); Mean Corpuscular Hgb 29.5 pg (27.0-32.0); Mean Corpuscular Volume 92.3 fL (81-99); Mean Platelet Vol. 10.7 fl (6.2-12.0); Monocyte# 1.08 X10^3/uL; NRBC Flagged by Analyzer 0.2 % (0-5); Neutrophil # 10.14 X10^3/uL (2.7-7.7); Neutrophil % 84.7 % (47-70); POSITIVE DIFFERENTIAL YES; Platelet Count 320 K/mm3 (150-450); RBC Distribution Width CV 17.7 % (11.6-14.6); RBC Distribution Width SD 53.4 fl (35.1-43.9); Red Blood Count 2.98 M/mm3 (4.2-5.4)
[2024-06-25 07:42] LABS: International Normalized Ratio 1.2; Prothrombin Time (Protime)PT. 15.5 SECONDS (11.7-14.9)
[2024-06-25 07:44] VITALS: BP 98/62; PULSE 92; RESP 20; TEMP 36.9; O2SAT 96
[2024-06-25 08:10] LABS: Anion Gap 6 (5-15); BUN 54 mg/dL (7-18); BUN/Creat Ratio 25.2 RATIO (10-20); Calcium,Total 8.9 mg/dL (8.5-10.1); Chloride 105 mmol/L (98-107); Creatinine, Serum 2.14 mg/dL (0.55-1.02); EST Glomerular Filtration Rate 24 mL/min (>60); Est Glom Filt Rate - Afr Amer 29 mL/min (>60); Estimated Creatinine Clearance 22.76 ml/min; Glucose 93 mg/dL (74-106); Potassium 3.5 mmol/L (3.5-5.1); Sodium Level 138 mmol/L (136-145)
[2024-06-25] MEDS: Cefdinir 300 MG Capsule PO (09:23)
[2024-06-25] MEDS: Pantoprazole Sodium 40 MG Tablet PO (09:23)
[2024-06-25] MEDS: Furosemide 80 MG Tablet PO (09:23)
[2024-06-25] MEDS: Azithromycin 250 MG Tablet 500 MG PO (09:23)
[2024-06-25] MEDS: Acetaminophen 325 MG Tablet 650 MG PO (09:23)
--- NOTE | 2024-06-25 10:09 | PCM.DC ---
Discharge Instructions Diet Discharge Diet: Low fat / Low cholesterol and 6 Cup Fluid Restriction DC O2, CPAP, BIPAP needs Home O2 Discharge instructions: No Dressing / Incision Discharge Activity: Return to Normal Activity Dressing / Incision Call your doctor if you observe: Fever of 101 or Higher, Shortness of breath, Dizziness, Fainting spells, Swelling in the ankles, Chest pain and Increased palpitations (irregular heartbeat) Follow Up Care Test Results: Test results from this visit will be discussed in further detail at your follow-up appointment, if applicable. Discharge Plan Admission Admit Date/Time: 06/21/24 10:58 Attending Provider: Jos Infante Primary Care Provider: Humaira Churchill Consulting Providers: Cornelio Licona Instructions Additional Instructions / Restrictions: Follow-up with your PCP in 3 to 5 days to monitor your hemoglobin Discharge Orders/Prescriptions Prescriptions: New azithromycin 500 mg tablet 500 mg PO Q24 2 Days Qty: 2 0RF pantoprazole 40 mg Tablet,Delayed Release (Dr/Ec) 40 mg PO BID 30 Days Qty: 60 0RF cefdinir 300 mg Capsule 300 mg PO DAILY 4 Days Qty: 4 0RF sucralfate [Carafate] 1 gram tablet 1 g PO TID 28 Days Qty: 84 0RF Eliquis 5 mg tablet 5 mg PO BID 30 Days Qty: 60 0RF Continued levothyroxine 75 mcg tablet 75 mcg PO Q OTHER DAY levothyroxine 100 mcg tablet 100 mcg PO Q OTHER DAY PreserVision AREDS-2 [id number] ng-onkr-wy-mg capsule 1 tab PO DAILY cholecalciferol (vitamin D3) 1,000 unit capsule 1,000 unit PO DAILY albuterol sulfate 90 mcg/actuation HFA aerosol inhaler 2 puff INHALATION Q6H PRN (Reason: shortness of breath or wheezing) Adult Probiotic 3 billion cell capsule 3,000 mmu cells PO DAILY Rx Instructions: administer with a meal magnesium 200 mg tablet 200 mg PO DAILY Glucosamine Chondroitin PLUS [id number] mg capsule 1 cap PO DAILY triamcinolone acetonide 1 SPRAY aerosol,spray 1 spray NS PRN PRN (Reason: Allergies) Patient Comments: NEEDED acetaminophen 500 mg Tablet 1,000 mg PO Q8 30 Days Qty: 180 0RF oxycodone 5 mg Tablet 5 - 10 mg PO Q6H 7 Days Qty: 28 0RF furosemide 40 mg Tablet 80 mg PO DAILY (DME) Handicap Parking Placard See Rx Instructions .Route .MEDSUPPLY Qty: 1 0RF Rx Instructions: As directed verapamil 120 mg tablet extended release 120 mg PO QHS Qty: 90 3RF sacubitril-valsartan [Entresto] 24-26 mg tablet 1 tab PO BID Qty: 180 3RF Held aspirin 81 MG tablet,chewable 81 mg PO DAILY@0800 Hold Instructions: Resume on 07/08/24. Discontinued warfarin 2.5 mg tablet 2.5 mg PO [facility] Protocol: Dose Management Condition: Monday Dose/Route: 2.5 mg Instruction: 1 x 2.5 mg tablet Condition: Monday Dose/Route: 5 mg Instruction: 1 x 5 mg tablet Condition: Monday Dose/Route: 5 mg Instruction: 1 x 5 mg tablet Condition: Monday Dose/Route: 5 mg Instruction: 1 x 5 mg tablet Condition: Dose/Route: 5 mg Instruction: 1 x 5 mg tablet Condition: Monday Dose/Route: 2.5 mg Instruction: 1 x 2.5 mg tablet Condition: Monday Dose/Route: 2.5 mg Instruction: 1 x 2.5 mg tablet Protocol Text: Adjustment Start Date: Monday05/31/24 INR Value: 2.5 INR Date: 05/31/24 Recheck Date: 06/30/24 Patient Comments: HOLD 5 DAYS PRIOR TO SURGERY-LAST DOSE 05/31/24 warfarin 5 mg tablet 5 mg PO [facility] Protocol: Dose Management Condition: Monday Dose/Route: 2.5 mg Instruction: 1 x 2.5 mg tablet Condition: Monday Dose/Route: 5 mg Instruction: 1 x 5 mg tablet Condition: Monday Dose/Route: 5 mg Instruction: 1 x 5 mg tablet Condition: Monday Dose/Route: 5 mg Instruction: 1 x 5 mg tablet Condition: Dose/Route: 5 mg Instruction: 1 x 5 mg tablet Condition: Monday Dose/Route: 2.5 mg Instruction: 1 x 2.5 mg tablet Condition: Monday Dose/Route: 2.5 mg Instruction: 1 x 2.5 mg tablet Protocol Text: Adjustment Start Date: Monday05/31/24 INR Value: 2.5 INR Date: 05/31/24 Recheck Date: 06/30/24 Patient Comments: LAST DOSE 05/31/24 Rx Instructions: 5 mg PO every day Referrals / Follow Up: Humaira Churchill MD [Primary Care Provider] - Within 1 Week FriendSergio DO [Med Staff - Active Staff] - Within 1 Month Disposition Disposition (needs filled in before D/C Order can be placed): Home, Self Care
--- NOTE | 2024-06-25 10:32 | CASEMGMT ---
Pt has an order for DC placed. Pt has a new Rx for Eliquis. TC to Serena at [facility] who states that they are able to start care on . TC to pt preferred pharmacy ([facility]) who states that the Eliquis is 472$ after insurance. The pharmacist states that they cannot accept the free trial card over the phone but can utilize this if the pt brings one in. RN YESENIA to pt room at this time. Pt states that she is content with the HH starting on (pt very thankful about this). Pt educated about the Eliquis and states that the will accept the free trial card and is aware that this can only be used once per lifetime. Pt states that her Caregiver (who is a nurse) will be picking the pt up today. Pt states that she feels safe with this plan and denies further needs at this time. Pt RN updated.
[2024-06-25 10:36] VITALS: PULSE 83
[2024-06-25 11:45] VITALS: BP 101/58; PULSE 82; RESP 16; TEMP 36.4; O2SAT 98
--- NOTE | 2024-06-25 16:54 | DS.PCM_ITS ---
Providers Date of Admission: 06/21/24 Primary Care Physician: Dr. Humaira Churchill MD Consultations 06/21/24 14:09 Consult: Gastroenterology Routine Consulting Provider: [facility] Reason for Consult: GI bleed EMERGENT Consult: No Notified: Yes Date Notified: 06/21/24 Time Notified: 11:18 Method of Notification: ED Physician Initiated Consult: Human Resources Manager Manufacturing / Pulmonary Medicine Routine Consulting Provider: Intensivists/Pulmonary Med Reason for Consult: sepsis EMERGENT Consult: No Notified: Yes Date Notified: 06/21/24 Time Notified: 11:15 Method of Notification: Verbal Reason For Visit: SEPSIS, SEVERE ANEMIA Diagnosis Discharge Diagnosis (1) S/p reverse total shoulder arthroplasty: Status: Acute Code(s): Z96.619 - Presence of unspecified artificial shoulder joint Qualifiers: Laterality: right Qualified Code(s): Z96.611 - Presence of right artificial shoulder joint Medications at Discharge Home Medications aspirin 81 mg chewable tablet 81 mg PO DAILY@0800 Heart 01/22/15 Held on 06/25/24. Instructions: Resume on 07/08/24. triamcinolone acetonide 55 mcg nasal spray aerosol 1 spray NS PRN PRN Allergies 09/15/17 cholecalciferol (vitamin D3) 25 mcg (1,000 unit) capsule 1,000 unit PO DAILY v 07/24/18 levothyroxine 100 mcg tablet 100 mcg PO Q OTHER DAY Thyroid 07/24/18 levothyroxine 75 mcg tablet 75 mcg PO Q OTHER DAY Thyroid 07/24/18 vit C 250 mg-vit E 90 mg-zinc 40 mg-copper 1 qa-ksqqso-wlbmvh capsule (PreserVision AREDS-2) 1 tab PO DAILY vi 07/24/18 albuterol sulfate 90 mcg/actuation aerosol inhaler 2 puff inhalation Q6H PRN shortness of breath or wheezing 10/14/20 lactobacillus combination no.8 3 billion cell capsule (Adult Probiotic) 3,000 mmu cells PO DAILY probiotic 10/14/20 magnesium 200 mg tablet 200 mg PO DAILY replaceme 09/21/21 mrtp-oalrd-hz8-xnb-nfm-cpqh-sterols 375 mg-100 mg-36 mg-54 mg capsule (Glucosamine Chondroitin PLUS) 1 cap PO DAILY joint 11/01/22 Handicap Parking Placard #1 ea 06/26/23 verapamil 120 mg tablet,extended release 120 mg PO QHS #90 tabs 05/06/24 acetaminophen 500 mg tablet 1,000 mg (2 x 500 mg) PO Q8 30 days #180 tabs 06/09/24 oxycodone 5 mg tablet 5 - 10 mg (1 - 2 x 5 mg) PO Q6H 7 days #28 tabs 06/09/24 sacubitril 24 mg-valsartan 26 mg tablet (Entresto) 1 tab PO BID #180 tabs 06/11/24 furosemide 40 mg tablet 80 mg PO DAILY CHF 06/21/24 apixaban 5 mg tablet (Eliquis) 5 mg PO BID 30 days #60 tabs 06/25/24 azithromycin 500 mg tablet 500 mg PO Q24 2 days #2 tabs 06/25/24 cefdinir 300 mg capsule 300 mg PO DAILY 4 days #4 caps 06/25/24 pantoprazole 40 mg tablet,delayed release 40 mg PO BID 30 days #60 tabs 06/25/24 sucralfate 1 gram tablet (Carafate) 1 g PO TID 4 weeks #84 tabs 06/25/24 Hospital Course Operations None Procedures EGD Summary of Care Provided Minutes Spent on Discharge: 36 Hospital Course: Per HPI: Patient is a 78-year-old lady who underwent rash shoulder total reverse arthroplasty on account of rotator cuff tear on 06/06/2024 presented back to the emergency department with progressive shortness of breath and and weakness. Patient admitted to symptoms 13 days after her surgery. She has since noticed increasing shortness of breath with minimal activity. She also did notice swelling involving both lower extremities. Patient did admit to chills but denied any fever. Denied being around any sick contact. In view of worsening symptoms patient presented to the emergency department. In the emergency department patient was found to have elevated WBC, with lactic acidosis. Patient was also found to be hypotensive with systolic blood pressure in the 80s checks x-ray obtained did not show any infiltrate however did show vascular congestion. Hemoglobin came back at 5.0. On further questioning patient admitted to having experienced dark tarry stools. Of note patient is on warfarin for persistent A-fib. The fur blower on-call was notified from the ED patient admitted to the intensive care unit for further management Hospital Course: 1. Sepsis ? Suspected to be secondary to healthcare acquired pneumonia patient presented with progressive generalized weakness dyspnea chills but no fever. Was found to have elevated WBC count as well as lactic acidosis. Patient has been admitted to the intensive care unit. Patient did not receive IV fluid resuscitation per protocol given her concomitant congestive heart failure. Patient was started on broad-spectrum antibiotic therapy after cultures have been obtained also did request for viral respiratory panel and COVID assay. Response to therapy being monitored with serial lactic acid levels ? 06/22/2024; patient did not require Levophed ? 06/23/2024; patient WBC count trending down 06/24/2024: Will narrow her antibiotics 06/25/2024: I discussed with her the plan for discharge today she expressed understanding of the risks and benefits to going home and would like to go home today. Will continue with azithromycin for 2 more days and cefdinir for 4 more days to complete treatment of her pneumonia. 2. Acute blood loss anemia ? Suspected to be secondary to upper GI bleed exacerbated by use of systemic anticoagulation with warfarin. Patient was typed and crossmatched from the emergency department and order was given for patient to be transfused with 2 unit PRBC subsequently started on Protonix drip after receiving Protonix bolus. Admitted to the intensive care unit subsequent monitoring with serial H&H ordered consult placed to Dr. Jones from the ED ? 06/22/2024; patient did receive 3 unit PRBC transfusion hemoglobin this a.m. is 7.5 ? 06/23/2024; patient hemoglobin down to 7.2. EGD the day prior demonstrated No gross lesions in the entire esophagus. - Medium-sized hiatal hernia. - Non-bleeding gastric ulcer with no stigmata of bleeding. - Non-bleeding duodenal ulcer with no stigmata of bleeding. - No specimens collected. With patient being hypotensive and hemoglobin dropping to 7.2 and order was given for patient to be transfused with 1 unit. 06/24/2024: Recheck H&H this afternoon 06/25/2024: Her anemia has improved and it is recommended to hold the aspirin until 07/08/2024. Will continue with both twice daily PPI as well as Carafate on discharge per GI recommendations 3. Acute on chronic kidney disease stage III ? Patient did receive IV fluid resuscitation subsequent monitoring ordered 06/24/2024: This appears to be improving 4. Hyperkalemia ?Resolved 5. Coumadin induced coagulopathy ? Patient INR on admission was 8.8 and order was given for patient to receive vitamin K 06/24/2024: Will transition to Eliquis on discharge for her A-fib, INR is normalized to 1.3 06/25/2024: I discussed with her the transition to Eliquis which she agreed to add 5 mg p.o. twice daily 6. Acute on chronic congestive heart failure with reduced ejection fraction ? Patient echo from 04/03/2024 demonstrated Normal LV size. The estimated ejection fraction is 40 %. There is moderate global hypokinesis of the left ventricle. The left atrium is severely enlarged. Pulmonary artery systolic pressure is 48 mmHg. [place] : Akinetic. Anterior [place] : Hypokinetic Mid-Anterior : Mildly hypokinetic ? Patient admitted to monitored bed monitoring strict input and output patient is on furosemide resumed cautiously given patient relatively low blood pressure 7. Hypothyroidism ? Patient is on levothyroxine home dose continued 8. Persistent A-fib ? Rate controlled on systemic anticoagulation with warfarin which is being held given her presentation 06/24/2024: Will transition to Eliquis on discharge for her A-fib 06/25/2024: Transition to Eliquis on discharge okay to start per GI 9. Dyslipidemia ?Patient is on statin therapy, continued at home dose 10. 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 On account of rotator cuff injury 06/25/2024: Follow-up with orthopedic surgery as an outpatient as previously arranged 11. Sick sinus syndrome ? Status post pacemaker placement Physical Exam Narrative General: Alert, Oriented x3, Cooperative, No apparent distress HEENT: Atraumatic, PERRLA, EOMI, Normocephalic Oral: Moist Mucosa Neck: Supple, No JVD Lungs: Diminished, Normal air movement, No rhonchi, No wheeze, No rales Cardiovascular: Regular rate, Regular Rhythm, Normal S1, Normal S2, No murmurs Abdomen: Soft, Non Tender, Non-Distended, No Hepato-splenomegaly Extremities: Edema, Capillary Refill Less than 3 Seconds Skin: No rashes, No breakdown Musculoskeletal: No Tenderness to Palpation of Joints or Extremities, right upper extremity is in a sling due to rotator cuff surgery Neurological: No focal neurological deficits, Motor Exam 5/5 strength throughout, Sensory exam intact to light touch and pain Psych/Mental Status: Normal Affect, Appropriate Weight / BMI Weight Weight: 172 lb 6.424 oz Body Mass Index (BMI) 28.7 ABG / Lab / Microbiology Data 06/25/24 07:21 06/25/24 07:21 Laboratory: Laboratory Results - last 24 hr 06/25/24 07:21: WBC 12.0 H, RBC 2.98 L, Hgb 8.8 L, Hct 27.5 L, MCV 92.3, MCH 29.5, MCHC 32.0, RDW Std Deviation 53.4 H, RDW Coeff of Linda 17.7 H, Plt Count 320, MPV 10.7, Immature Gran % (Auto) 1.100 H, Neut % (Auto) 84.7 H, Lymph % (Auto) 3.9 L, Gallia % (Auto) 9.0, Eos % (Auto) 0.9, Baso % (Auto) 0.4, Absolute Neuts (auto) 10.1 H, Absolute Lymphs (auto) 0.47 L, Nucleated RBC % 0.2, PT 15.5 H, INR 1.2, Sodium 138, Potassium 3.5, Chloride 105, Carbon Dioxide 27.0, Anion Gap 6, BUN 54 H, Creatinine 2.14 H, Estim Creat Clear Calc 22.76, Est GFR (MDRD) Af Amer 29 L, Est GFR (MDRD) Non-Af 24 L, BUN/Creatinine Ratio 25.2 H, Glucose 93, Calcium 8.9 Microbiology: Microbiology 06/21/24 10:53 Blood Culture (Wb) - Anticubital Left Blood Culture - Preliminary No growth in 48 hours. 06/21/24 10:53 Blood Culture (Wb) - Arm Left Blood Culture - Preliminary No growth in 48 hours. 06/21/24 12:57 Urine, Catheterized Urine Culture - Final Culture exhibits no growth. 06/21/24 12:57 Urine Catheter - Catheter Legionella Antigen - Final 06/21/24 12:57 Urine Catheter - Catheter Streptococcus pneumoniae Antigen (M - Final 06/21/24 14:35 Mucosa - Nasopharyngeal Respiratory Panel (PCR) - Final 06/21/24 13:07 Mucosa - Nose SARS-CoV-2, Influenza & RSV (PCR) - Final 06/21/24 09:40 Stool Stool Occult Blood (AALIYAH) - Final D/C Instructions Discharge Diet: Low fat / Low cholesterol and 6 Cup Fluid Restriction Call your doctor if you observe: Fever of 101 or Higher, Shortness of breath, Dizziness, Fainting spells, Swelling in the ankles, Chest pain and Increased palpitations (irregular heartbeat) DC O2, CPAP, BIPAP Needs Home O2 Discharge instructions: No Meaningful Use Info Meaningful Use Meaningful Use Diagnoses (Choose all that apply): None applicable Ischemic Stroke Statin Dosing Therapy Reference: STATIN DOSE THERAPY REFERENCE: * Patients > 75 years receive moderate or high dose statin therapy. * Patients 75 years or YOUNGER should receive HIGH intensity statin dose unless contraindicated. You will be required to document reason for non-treatment if statin daily dose does not meet guidelines. HIGH DOSE STATIN THERAPY DAILY Atorvastatin > than or = to 40 mg Rosuvastatin > than or = to 20 mg Amlodipine + Atorvastatin > than or = to 2.5/40 mg Ezetimibe + Simvastatin 10/80 mg Simvastatin 80mg Discharge Plan Admission Admit Date/Time: 06/21/24 10:58 Attending Provider: Jos Infante Primary Care Provider: Humaira Churchill Consulting Providers: Cornelio Licona Instructions Additional Instructions / Restrictions: Follow-up with your PCP in 3 to 5 days to monitor your hemoglobin Discharge Orders/Prescriptions Prescriptions: New azithromycin 500 mg tablet 500 mg PO Q24 2 Days Qty: 2 0RF pantoprazole 40 mg Tablet,Delayed Release (Dr/Ec) 40 mg PO BID 30 Days Qty: 60 0RF cefdinir 300 mg Capsule 300 mg PO DAILY 4 Days Qty: 4 0RF sucralfate [Carafate] 1 gram tablet 1 g PO TID 28 Days Qty: 84 0RF Eliquis 5 mg tablet 5 mg PO BID 30 Days Qty: 60 0RF Continued levothyroxine 75 mcg tablet 75 mcg PO Q OTHER DAY levothyroxine 100 mcg tablet 100 mcg PO Q OTHER DAY PreserVision AREDS-2 [id number] pt-enfx-cn-mg capsule 1 tab PO DAILY cholecalciferol (vitamin D3) 1,000 unit capsule 1,000 unit PO DAILY albuterol sulfate 90 mcg/actuation HFA aerosol inhaler 2 puff INHALATION Q6H PRN (Reason: shortness of breath or wheezing) Adult Probiotic 3 billion cell capsule 3,000 mmu cells PO DAILY Rx Instructions: administer with a meal magnesium 200 mg tablet 200 mg PO DAILY Glucosamine Chondroitin PLUS [phone] mg capsule 1 cap PO DAILY triamcinolone acetonide 1 SPRAY aerosol,spray 1 spray NS PRN PRN (Reason: Allergies) Patient Comments: NEEDED acetaminophen 500 mg Tablet 1,000 mg PO Q8 30 Days Qty: 180 0RF oxycodone 5 mg Tablet 5 - 10 mg PO Q6H 7 Days Qty: 28 0RF furosemide 40 mg Tablet 80 mg PO DAILY (DME) Handicap Parking Placard See Rx Instructions .Route .MEDSUPPLY Qty: 1 0RF Rx Instructions: As directed verapamil 120 mg tablet extended release 120 mg PO QHS Qty: 90 3RF sacubitril-valsartan [Entresto] 24-26 mg tablet 1 tab PO BID Qty: 180 3RF Held aspirin 81 MG tablet,chewable 81 mg PO DAILY@0800 Hold Instructions: Resume on 07/08/24. Discontinued warfarin 2.5 mg tablet 2.5 mg PO OLIVIA Protocol: Dose Management Condition: Monday Dose/Route: 2.5 mg Instruction: 1 x 2.5 mg tablet Condition: Monday Dose/Route: 5 mg Instruction: 1 x 5 mg tablet Condition: Monday Dose/Route: 5 mg Instruction: 1 x 5 mg tablet Condition: Monday Dose/Route: 5 mg Instruction: 1 x 5 mg tablet Condition: Dose/Route: 5 mg Instruction: 1 x 5 mg tablet Condition: Monday Dose/Route: 2.5 mg Instruction: 1 x 2.5 mg tablet Condition: Monday Dose/Route: 2.5 mg Instruction: 1 x 2.5 mg tablet Protocol Text: Adjustment Start Date: Monday05/31/24 INR Value: 2.5 INR Date: 05/31/24 Recheck Date: 06/30/24 Patient Comments: HOLD 5 DAYS PRIOR TO SURGERY-LAST DOSE 05/31/24 warfarin 5 mg tablet 5 mg PO SPENCER Protocol: Dose Management Condition: Monday Dose/Route: 2.5 mg Instruction: 1 x 2.5 mg tablet Condition: Monday Dose/Route: 5 mg Instruction: 1 x 5 mg tablet Condition: Monday Dose/Route: 5 mg Instruction: 1 x 5 mg tablet Condition: Monday Dose/Route: 5 mg Instruction: 1 x 5 mg tablet Condition: Dose/Route: 5 mg Instruction: 1 x 5 mg tablet Condition: Monday Dose/Route: 2.5 mg Instruction: 1 x 2.5 mg tablet Condition: Monday Dose/Route: 2.5 mg Instruction: 1 x 2.5 mg tablet Protocol Text: Adjustment Start Date: Monday05/31/24 INR Value: 2.5 INR Date: 05/31/24 Recheck Date: 06/30/24 Patient Comments: LAST DOSE 05/31/24 Rx Instructions: 5 mg PO every day Referrals / Follow Up: Humaira Churchill MD [Primary Care Provider] - Within 1 Week FriendSergio DO [Med Staff - Active Staff] - 07/12/24 9:30 am Disposition Disposition (needs filled in before D/C Order can be placed): Home Health Service Charges/Coding Visit Charges Inpatient E&M: 00141 Disch Hosp >30min
== END 2024-06-25 14:30 | disposition home health service (06) | DRG 871 ==
LOC: ED 11:06 → ICU 13:42
PROVIDERS: Internal Medicine Gastroenterology; Admitting Provider Internal Medicine; Emergency Provider Emergency Medicine; PCP Family Medicine; Visit Provider Family Medicine
PROC: 0DJ08ZZ Inspection of Upper Intestinal Tract, Via Natural or Artificial Opening Endoscopic (ICD-10-PCS; CPT 43235; principal; 2024-06-22 08:00)
DX: A41.9 Sepsis, unspecified organism (principal); J18.9 Pneumonia, unspecified organism; I50.23 Acute on chronic systolic (congestive) heart failure; E87.20 Acidosis, unspecified; D68.32 Hemorrhagic disorder due to extrinsic circulating anticoagulants; I24.89 Other forms of acute ischemic heart disease; D62 Acute posthemorrhagic anemia; I13.0 Hypertensive heart and chronic kidney disease with heart failure and stage 1 through stage 4 chronic kidney disease, or unspecified chronic kidney disease; I48.11 Longstanding persistent atrial fibrillation; I42.2 Other hypertrophic cardiomyopathy; N17.9 Acute kidney failure, unspecified; N18.30 Chronic kidney disease, stage 3 unspecified; E03.9 Hypothyroidism, unspecified; K26.9 Duodenal ulcer, unspecified as acute or chronic, without hemorrhage or perforation; I49.5 Sick sinus syndrome; K44.9 Diaphragmatic hernia without obstruction or gangrene; E87.5 Hyperkalemia; E78.5 Hyperlipidemia, unspecified; Z66 Do not resuscitate; K25.9 Gastric ulcer, unspecified as acute or chronic, without hemorrhage or perforation; Z79.890 Hormone replacement therapy; Z87.891 Personal history of nicotine dependence; Z90.710 Acquired absence of both cervix and uterus; Z95.0 Presence of cardiac pacemaker; Z96.611 Presence of right artificial shoulder joint; T45.515A Adverse effect of anticoagulants, initial encounter
CPT/HCPCS: 36415; 36569; 71045; 71046; 80048; 80202; 81001; 82274; 83605; 83735; 83880; 84100; 84484; 85014; 85018; 85025; 85379; 85610; 85730; 86850; 86900; 86901; 87040; 87086; 87449; 87631; 87633; 93005; 94640; 97116; 97162; 97166; 97530; 97535; 97802; 99252; 99285; J2997; P9016; A4216; G0463; J0612; J1940; J2405

== ENCOUNTER → 2024-07-02 | Outpatient (CLI) | payer MEDICARE, OTHER, SELFPAY ==
[2024-07-02 18:20] LABS: Absolute Lymphocyte Count 0.45 X10^3/uL (0.83-4.51); Absolute Neutrophil Count 4.2 X10^3/uL (2.0-7.7); Basophil# 0.06 X10^3/uL; Basophil% 1.1 % (0-1); Eosinophil# 0.12 X10^3/uL; Eosinophils% 2.2 % (0-5); Hematocrit 30.2 % (37-47); Hemoglobin 8.9 g/dL (12.0-15.0); Lymphocyte # 0.45 X10^3/ul (0.83-4.51); Lymphocyte % 8.2 % (19-41); Mean Corp Hgb Conc 29.5 g/dL (32-36); Mean Corpuscular Hgb 27.7 pg (27.0-32.0); Mean Corpuscular Volume 94.1 fL (81-99); Mean Platelet Vol. 10.7 fl (6.2-12.0); Monocyte# 0.63 X10^3/uL; Monocyte% 11.4 % (0-10); NRBC Flagged by Analyzer 0 % (0-5); Neutrophil # 4.23 X10^3/uL (2.7-7.7); Neutrophil % 76.6 % (47-70); POSITIVE DIFFERENTIAL YES; Platelet Count 399 K/mm3 (150-450); RBC Distribution Width CV 16.8 % (11.6-14.6); RBC Distribution Width SD 55.5 fl (35.1-43.9); Red Blood Count 3.21 M/mm3 (4.2-5.4); White Blood Count 5.5 K/mm3 (4.4-11.0)
[2024-07-02 18:39] LABS: ALB/GLOB Ratio 0.8 RATIO (0.9-2.4); AST(SGOT) 22 U/L (15-37); Alanine Aminotransfer ALT/SGPT 19 U/L (13-56); Albumin, Serum 2.7 g/dL (3.2-5.0); Alkaline Phosphatase 84 U/L (45-117); Anion Gap 10 (5-15); BUN 42 mg/dL (7-18); BUN/Creat Ratio 19.2 RATIO (10-20); Chloride 100 mmol/L (98-107); Creatinine, Serum 2.19 mg/dL (0.55-1.02); EST Glomerular Filtration Rate 23 mL/min (>60); Est Glom Filt Rate - Afr Amer 28 mL/min (>60); Globulin 3.6 g/dL (2.2-4.2); Glucose 77 mg/dL (74-106); Potassium 3.1 mmol/L (3.5-5.1); Protein, Total 6.3 g/dL (6.4-8.2); Sodium Level 138 mmol/L (136-145)
== END | disposition home or self-care (01) ==
LOC: MFPLAB 15:05
PROVIDERS: PCP Family Medicine; Referring Provider Family Medicine; Visit Provider Family Medicine
DX: R60.0 Localized edema (principal)
CPT/HCPCS: 36415; 80053; 84443; 85025

== ENCOUNTER → 2024-07-09 | Outpatient (CLI) | payer MEDICARE, OTHER, SELFPAY ==
[2024-07-09 20:36] LABS: BUN 38 mg/dL (4-19); BUN/Creat Ratio 17.6 RATIO (10-20); Creatinine, Serum 2.2 mg/dL (0.6-1.0); EST Glomerular Filtration Rate 23 (>60); Glucose 97 mg/dL (70-99)
[2024-07-10 05:41] LABS: Calcium,Total 9.2 mg/dL (7.6-11.0)
[2024-07-10 05:42] LABS: Anion Gap 21 (5-15); Carbon Dioxide 21.1 mmol/L (21.0-32.0); Chloride 97 mmol/L (98-107); Potassium 3.4 mmol/L (3.5-5.1); Sodium Level 139 mmol/L (136-145)
== END | disposition home or self-care (01) ==
LOC: MTLAB 11:10
PROVIDERS: PCP Family Medicine; Referring Provider Family Medicine; Visit Provider Family Medicine
DX: E03.9 Hypothyroidism, unspecified (principal); I27.21 Secondary pulmonary arterial hypertension
CPT/HCPCS: 36415; 80048; 84443

== ENCOUNTER → 2024-07-12 | Outpatient (CLI) | payer MEDICARE, OTHER, SELFPAY ==
[2024-07-12 12:30] LABS: Anion Gap 14 (5-15); BUN 41 mg/dL (4-19); BUN/Creat Ratio 17.3 RATIO (10-20); Calcium 9.1 mg/dL (7.6-11.0); Carbon Dioxide 24.7 mmol/L (22.0-29.0); Chloride 98 mmol/L (96-108); Creatinine, Serum 2.35 mg/dL (0.70-1.20); EST Glomerular Filtration Rate 21 (>60); Glucose 94 mg/dL (70-99); Potassium 3.4 mmol/L (3.3-5.1); Sodium Level 136 mmol/L (133-145)
== END | disposition home or self-care (01) ==
LOC: LAB 10:50
PROVIDERS: PCP Family Medicine; Referring Provider Family Medicine; Visit Provider Family Medicine
DX: I27.21 Secondary pulmonary arterial hypertension (principal)
CPT/HCPCS: 36415; 80048

== ENCOUNTER → 2024-08-30 | Outpatient (CLI) | payer MEDICARE, OTHER, SELFPAY ==
[2024-08-30 15:21] LABS: Absolute Lymphocyte Count 0.45 X10^3/uL (0.83-4.51); Absolute Neutrophil Count 7.3 X10^3/uL (2.0-7.7); Basophil# 0.08 X10^3/uL; Basophil% 0.9 % (0-1); Eosinophil# 0.07 X10^3/uL; Eosinophils% 0.8 % (0-5); Hematocrit 29.5 % (37-47); Hemoglobin 8.9 g/dL (12.0-15.0); Lymphocyte # 0.45 X10^3/ul (0.83-4.51); Lymphocyte % 5.3 % (19-41); Mean Corp Hgb Conc 30.2 g/dL (32-36); Mean Corpuscular Hgb 27.2 pg (27.0-32.0); Mean Corpuscular Volume 90.2 fL (81-99); Mean Platelet Vol. 10.8 fl (6.2-12.0); Monocyte# 0.66 X10^3/uL; Monocyte% 7.7 % (0-10); NRBC Flagged by Analyzer 0 % (0-5); Neutrophil # 7.28 X10^3/uL (2.7-7.7); Neutrophil % 84.9 % (47-70); POSITIVE DIFFERENTIAL YES; Platelet Count 342 K/mm3 (150-450); RBC Distribution Width CV 15.7 % (11.6-14.6); Red Blood Count 3.27 M/mm3 (4.2-5.4); White Blood Count 8.6 K/mm3 (4.4-11.0)
[2024-08-30 15:56] LABS: ALB/GLOB Ratio 1.6 RATIO (0.9-2.4); AST(SGOT) 26 U/L (<=31); Alanine Aminotransfer ALT/SGPT 17 U/L (<=34); Albumin, Serum 3.7 g/dL (3.4-4.8); Alkaline Phosphatase 74 U/L (35-104); Anion Gap 13 (5-15); BUN 65 mg/dL (4-19); BUN/Creat Ratio 27.1 RATIO (10-20); Calcium,Total 9.4 mg/dL (7.6-11.0); Carbon Dioxide 22.3 mmol/L (21.0-32.0); Chloride 102 mmol/L (98-108); Creatinine, Serum 2.41 mg/dL (0.70-1.20); EST Glomerular Filtration Rate 20 (>60); Globulin 2.3 g/dL (2.2-4.2); Glucose 106 mg/dL (70-99); Potassium 4.8 mmol/L (3.3-5.1); Sodium Level 137 mmol/L (133-145); Total Bilirubin 0.48 mg/dL (0.00-1.30)
== END | disposition home or self-care (01) ==
LOC: MFPLAB 11:58
PROVIDERS: PCP Family Medicine; Referring Provider Family Medicine; Visit Provider Family Medicine
DX: E03.9 Hypothyroidism, unspecified (principal); I50.9 Heart failure, unspecified
CPT/HCPCS: 36415; 80053; 84443; 85025

== ENCOUNTER → 2024-09-25 | Outpatient (CLI) | payer MEDICARE, OTHER, SELFPAY ==
--- NOTE | 2024-09-25 12:25 | RAD_ITS ---
PROCEDURE: CHEST PA AND LATERAL 09/25/2024 REASON FOR EXAM: RLQ WHEEZING TECHNIQUE: Frontal and lateral views of the chest. COMPARISON: 06/21/2024 FINDINGS: Blunting of the left costophrenic angle may represent pleural thickening or very small pleural effusion. Appearance of possible mild vascular congestion now seen. The lungs otherwise appear clear. The cardiac silhouette is enlarged for technique. Dual-chamber AICD and reverse right shoulder replacement again noted. RAD/Chest PA and Lateral IMPRESSION: Findings suggest possible mild vascular congestion, possible mild pulmonary bunny ma, clinically correlate. Blunting of the left costophrenic angle may represent pleural thickening or abbi y small pleural effusion. The cardiac silhouette is enlarged for technique. Reading Location: [id number]
[2024-09-25 13:39] LABS: Absolute Lymphocyte Count 0.34 X10^3/uL (0.83-4.51); Absolute Neutrophil Count 6.3 X10^3/uL (2.0-7.7); Basophil# 0.06 X10^3/uL; Basophil% 0.8 % (0-1); Eosinophil# 0.06 X10^3/uL; Eosinophils% 0.8 % (0-5); Hemoglobin 8.6 g/dL (12.0-15.0); Lymphocyte # 0.34 X10^3/ul (0.83-4.51); Lymphocyte % 4.6 % (19-41); Mean Corp Hgb Conc 29.7 g/dL (32-36); Mean Corpuscular Volume 90.9 fL (81-99); Mean Platelet Vol. 10.9 fl (6.2-12.0); Monocyte# 0.64 X10^3/uL; Monocyte% 8.6 % (0-10); NRBC Flagged by Analyzer 0 % (0-5); Neutrophil # 6.32 X10^3/uL (2.7-7.7); Neutrophil % 84.8 % (47-70); POSITIVE DIFFERENTIAL YES; Platelet Count 303 K/mm3 (150-450); RBC Distribution Width CV 17.1 % (11.6-14.6); RBC Distribution Width SD 56.5 fl (35.1-43.9); Red Blood Count 3.19 M/mm3 (4.2-5.4); White Blood Count 7.5 K/mm3 (4.4-11.0)
[2024-09-25 14:30] LABS: Anion Gap 12 (5-15); BUN 95 mg/dL (4-19); BUN/Creat Ratio 30.9 RATIO (10-20); Calcium,Total 9.6 mg/dL (7.6-11.0); Carbon Dioxide 19.3 mmol/L (21.0-32.0); Chloride 101 mmol/L (98-108); Creatinine, Serum 3.07 mg/dL (0.70-1.20); EST Glomerular Filtration Rate 15 (>60); Glucose 102 mg/dL (70-99); Potassium 5.3 mmol/L (3.3-5.1); Pro- Brain NATRIURETIC PEPTIDE 10169 pg/mL (<=1800); Sodium Level 132 mmol/L (133-145)
== END | disposition home or self-care (01) ==
LOC: RAD 12:12
PROVIDERS: PCP Family Medicine; Referring Provider Nurse Practitioner Family; Visit Provider Nurse Practitioner Family
DX: I50.42 Chronic combined systolic (congestive) and diastolic (congestive) heart failure (principal); I48.11 Longstanding persistent atrial fibrillation; I42.2 Other hypertrophic cardiomyopathy; Z95.0 Presence of cardiac pacemaker; R06.00 Dyspnea, unspecified
CPT/HCPCS: 36415; 71046; 80048; 83880; 85025

== ENCOUNTER → 2024-10-01 | Outpatient (CLI) | payer MEDICARE, OTHER, SELFPAY ==
[2024-10-01 12:55] LABS: Anion Gap 13 (5-15); BUN 90 mg/dL (4-19); BUN/Creat Ratio 30.9 RATIO (10-20); Calcium,Total 9.3 mg/dL (7.6-11.0); Carbon Dioxide 19.1 mmol/L (21.0-32.0); Chloride 104 mmol/L (98-108); Creatinine, Serum 2.92 mg/dL (0.70-1.20); EST Glomerular Filtration Rate 16 (>60); Glucose 104 mg/dL (70-99); Sodium Level 136 mmol/L (133-145)
== END | disposition home or self-care (01) ==
LOC: MTLAB 10:25
PROVIDERS: PCP Family Medicine; Referring Provider Nurse Practitioner Family; Visit Provider Nurse Practitioner Family
DX: N18.9 Chronic kidney disease, unspecified (principal); I50.20 Unspecified systolic (congestive) heart failure; I42.2 Other hypertrophic cardiomyopathy
CPT/HCPCS: 36415; 80048

== ENCOUNTER 2024-12-02 17:25 | Inpatient (IN) | payer MEDICARE, OTHER, SELFPAY ==
[2024-12-02] VITALS (10 sets, daily range): BP systolic 78–141; BP diastolic 53–106; PULSE 79–84; RESP 15–26; TEMP 36.2–36.7; O2SAT 93–100; BMI 32.8
--- NOTE | 2024-12-02 18:15 | EKG12_ITS ---
Test Reason : SOB Blood Pressure : */* mmHG Vent. Rate : 80 BPM Atrial Rate : * BPM P-R Int : * ms QRS Dur : 72 ms QT Int : 348 ms P-R-T Axes : * 7 207 degrees QTcB Int : 401 ms Accelerated Junctional rhythm Low voltage QRS Cannot rule out Anterior infarct , age undetermined Abnormal ECG Confirmed by Jose Ramon Wise ([id number]), slot editor BRET NUNEZ ([id number]) on 12/03/2024 1:30:29 PM Referred By: NEVIN/MAURI Confirmed By: Jose Ramon Wise
--- NOTE | 2024-12-02 18:22 | ED.VIS.DYS ---
HPI History of Present Illness Chief Complaint: Shortness of Breath Narrative Narrative: Chief complaint and HPI: Shortness of breath. 79-year-old female with past medical history of CKD, COPD, cardiomyopathy with CHF, HLD, HTN presents for evaluation of shortness of breath and edema. Patient states for the past several weeks she has been having increased shortness of breath and lower extremity edema. States she saw her kidney doctor recently in which her Lasix was increased to 80 mg twice daily from her 40 mg twice daily. She states she has continued to gain weight including 2 pounds in the past week. Associated symptom is weakness. Patient also endorses periodic bright red blood per rectum. States has been ongoing since May. Follows with Dr. Jones for this. States that she is due for another endoscopy next week. She denies any abdominal pain. She is on Eliquis in which she has been taking this daily. She denies any fever, chills, chest pain, abdominal pain, nausea, vomiting, dysuria. Review of systems: See HPI Medications: As listed on the chart Allergies: As listed on the chart PFSH: Per chart Vital signs: As listed on the chart. Reviewed. Physical exam: Gen: A&O x3, NAD Head: Normocephalic, atraumatic Eyes: No sclera icterus, conjunctiva clear ENT: Moist mucous membranes Neck: Trachea midline CV: RRR, no murmurs, + 3 pitting peripheral edema bilaterally Resp: Diminished in the bilateral bases, crackles GI: Abd soft, non-distended, non-tender, no r/r/g Rectal: Normal external examination. No evidence of hemorrhoids or fissures. Normal tone and sensation. No masses, fluctuance, or tenderness. No pain out of proportion. Dark stool on gloved finger. Musc: Moves all extremity, no deformity Skin: Warm, dry, old ecchymosis throughout the body secondary to her blood thinner Neuro: Alert, oriented, grossly intact, sensation intact Psych: Cooperative, appropriate mood and affect PFSH PFSH Medical History Wears glasses Post-menopausal Anxiety Arthritis Back pain Syncope Former smoker Shortness of breath on exertion Hoarseness Hypertension History of stress test History of echocardiogram Cardiology follow-up encounter History of atrial fibrillation Chronic combined systolic and diastolic CHF (congestive heart failure) Hypertrophic cardiomyopathy 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 Longstanding persistent atrial fibrillation Hypothyroidism Secondary pulmonary arterial hypertension Vocal cord paralysis, unilateral complete Sick sinus syndrome Hyperlipidemia Left ventricular diastolic dysfunction FH: sudden cardiac (SCD) Home Medications ?Medication ?Instructions ?Recorded ?Last Taken ?Type aspirin 81 mg chewable tablet 81 mg PO DAILY@0800 Heart 01/22/15 06/05/24 History Held on 06/25/24. Instructions: Resume on 07/08/24. albuterol sulfate 90 mcg/actuation 2 puff inhalation Q6H PRN 10/14/20 06/06/24 History aerosol inhaler shortness of breath or wheezing magnesium 200 mg tablet 200 mg PO DAILY replaceme 09/21/21 06/01/24 History Handicap Parking Placard #1 ea 06/26/23 Unknown Rx sacubitril 24 mg-valsartan 26 mg 1 tab PO BID #180 tabs 06/11/24 Unknown Rx tablet (Entresto) levothyroxine 150 mcg tablet 150 mcg PO QDAY 07/12/24 Unknown History spironolactone 50 mg tablet 25 mg PO Q OTHER DAY 07/12/24 Unknown History pantoprazole 40 mg tablet,delayed 40 mg PO BID 30 days #60 tabs 07/24/24 Unknown Rx release sucralfate 1 gram tablet (Carafate) 1 g PO TID 4 weeks #180 tabs 07/24/24 Unknown Rx apixaban 5 mg tablet (Eliquis) 5 mg PO BID #180 tabs 08/08/24 Unknown Rx acetaminophen 500 mg tablet 1,000 mg PO Q8 PRN 09/25/24 Unknown History ferrous sulfate 324 mg (65 mg 324 mg PO QDAY 09/25/24 Unknown History iron) tablet,delayed release multivitamin 1 tab PO QAM 09/25/24 Unknown History vit C 250 mg-vit E 90 mg-zinc 40 1 tab PO DAILY 09/25/24 Unknown History mg-copper 1 [id number] capsule (PreserVision AREDS-2) diphenoxylate-atropine 2.5 1 tab PO TID PRN diarrhea #90 tabs 10/14/24 Unknown Rx mg-0.025 mg tablet (Lomotil) furosemide 40 mg tablet 40 mg PO BID CHF 90 days #180 tabs 10/24/24 Unknown Rx carvedilol 3.125 mg tablet 3.125 mg PO BID #180 tabs 11/18/24 Unknown Rx metoprolol succinate 25 mg 25 mg PO DAILY 12/02/24 Unknown History tablet,extended release 24 hr verapamil 120 mg tablet,extended 120 mg PO DAILY 12/02/24 Unknown History release Allergy/AdvReac Type Severity Reaction Status Date / Time metoprolol Allergy Severe Abdominal Verified 12/02/24 17:33 pain, poor rate control amoxicillin Allergy Rash Verified 12/02/24 17:33 lisinopril Allergy Dry cough Verified 12/02/24 17:33 risedronate sodium (From AdvReac Rash Verified 12/02/24 17:33 Actonel) Family History Mother Cancer breast Sister Cancer breast and malignant melanoma Diabetes Brother Arrhythmia Surgical History History of laryngoscopy Hx of hemorrhoidectomy History of colonoscopy History of radiofrequency ablation procedure for cardiac arrhythmia (1999) History of hysterectomy Presence of permanent cardiac pacemaker (01/04/12) History of left heart catheterization (03/09/15) History of implantable cardiac defibrillator (ICD) History of dental surgery Hx of LASIK History of vocal cord surgery Social History Smoking Status: Former smoker how long ago did patient quit smokin years ago alcohol intake: never substance use type: does not use caffeine: No EXAM Physical Exam Const Vital Signs: 12/02/24 17:26 12/02/24 17:37 12/02/24 17:42 Temperature 98 F 98 F Temperature Source Oral Oral Pulse Rate 80 80 Respiratory Rate 26 H 26 H Respiratory Effort Short of Breath Labored Accessory Muscle Use Respiratory Depth Deep Respiratory Pattern Tachypnea Blood Pressure 89/75 L 87/65 L Blood Pressure Mean 79 72 Pulse Ox 100 100 Oxygen Delivery Method Room Air Room Air Room Air 12/02/24 18:33 12/02/24 19:37 12/02/24 20:00 Temperature 98.0 F 97.9 F Temperature Source Temporal Temporal Pulse Rate 84 79 79 Respiratory Rate 18 18 15 Respiratory Effort Respiratory Depth Respiratory Pattern Normal Blood Pressure 91/61 86/64 L Blood Pressure Mean 71 71 Pulse Ox 100 97 Oxygen Delivery Method Room Air Room Air MDM MDM MDM Narrative Medical decision making narrative: 79-year-old female with past medical history of CKD, COPD, cardiomyopathy with CHF, HLD, HTN presents for evaluation of shortness of breath and edema. Patient states for the past several weeks she has been having increased shortness of breath and lower extremity edema. States she saw her kidney doctor recently in which her Lasix was increased to 80 mg twice daily from her 40 mg twice daily without improvement. On physical exam, patient in no acute distress however she is fluid overloaded. Her SBP's is in the high 80s. Patient states at baseline her SBP is in the low 90s, daughter in the room confirms this. Given that patient is fluid overloaded, will not give fluids. Will give albumin as I suspect she is intravascularly depleted given her physical exam. Will hold off on Lasix given the blood pressure. Differential diagnosis includes but is not limited to CHF exacerbation, electrolyte abnormality, SAVANNA, suspect less likely ACS. Patient not endorsing any infectious symptoms such as pneumonia. On chart review, patient follows with Dr. Erickson. I reviewed his cardiology note from September. She has hypertrophic cardiomyopathy with a reduced ejection fraction of 35%. She has an ICD implantation. History of atrial fibrillation which is why she is on the Eliquis. EKG reviewed see below. Chest x-ray was personally reviewed and interpreted by me, ED physician. Cardiomegaly with vascular congestion. Radiology in agreement. Patient in CHF exacerbation. CBC without leukocytosis. Patient has stable anemia. CMP shows baseline CKD with a BUN of 87 and creatinine of 3.75. No transaminitis. Magnesium elevated at 2.8. BNP elevated at 19,538. Consistent with patient's CHF exacerbation. Her troponin is elevated at 166. She is not endorsing any chest pain. She has no acute ischemic changes on her EKG. I suspect the elevated troponin is secondary to her CKD and CHF exacerbation. However we will reach out to cardiology, Dr. Wise. Dr. Wise is in agreement. No heparin needed at this time. Patient will warrant admission for diuresis. She confirmed understanding the plan. Patient was discussed with the hospitalist service who accepted admission. EKG: Interpreted by me/EM physician: EKG shows accelerated junctional rhythm. No acute ischemic changes. Her 81 Impression: 1. CHF exacerbation 2. CKD 3. Hypotension secondary to #1 and 2 4. Elevated troponin, multifactorial including #1, #2, #3 Lab Data Labs: Laboratory Results - last 24 hr 12/02/24 19:13 WBC 8.5 RBC 3.71 L Hgb 9.6 L Hct 33.5 L MCV 90.3 MCH 25.9 L MCHC 28.7 L RDW Std Deviation 54.7 H RDW Coeff of Linda 16.6 H Plt Count 155 MPV 13.0 H Immature Gran % (Auto) 0.500 Neut % (Auto) 91.2 H Lymph % (Auto) 3.4 L [place] % (Auto) 3.7 Eos % (Auto) 0.6 Baso % (Auto) 0.6 Absolute Neuts (auto) 7.7 Absolute Lymphs (auto) 0.29 L Nucleated RBC % 0 Sodium 140 Potassium 4.3 Chloride 102 Carbon Dioxide 23.8 Anion Gap 15 BUN 87 H Creatinine 3.75 H Estim Creat Clear Calc 13.66 L Est GFR (MDRD) Non-Af 12 L BUN/Creatinine Ratio 23.1 H Glucose 120 H Calcium 9.6 Magnesium 2.8 H Total Bilirubin 0.55 Direct Bilirubin 0.30 AST 30 ALT 19 Alkaline Phosphatase 74 Troponin T High Sens 166 H* [place] [address] H Total Protein 6.1 Albumin 3.9 Globulin 2.1 L Radiography Diagnostic Testing: Clinical Impression(s) from Imaging Studies Chest X-Ray 12/02/24 19:55 IMPRESSION: Cardiomegaly with mild congestion. Reading Location: [facility] Discharge Plan Triage Chief Complaint: Shortness of Breath ED Provider: Jules Torres Dx/Rx/DC Orders Prescriptions: No Action albuterol sulfate 90 mcg/actuation HFA aerosol inhaler 2 puff INHALATION Q6H PRN (Reason: shortness of breath or wheezing) magnesium 200 mg tablet 200 mg PO DAILY levothyroxine 150 mcg tablet 150 mcg PO QDAY spironolactone 50 mg tablet 25 mg PO Q OTHER DAY multivitamin Tablet 1 tab PO QAM ferrous sulfate 324 mg (65 mg iron) tablet,delayed release (DR/EC) 324 mg PO QDAY PreserVision AREDS-2 250-90-40-1 mg capsule 1 tab PO DAILY acetaminophen 500 mg tablet 1,000 mg PO Q8 PRN aspirin 81 MG tablet,chewable 81 mg PO DAILY@0800 verapamil 120 mg tablet extended release 120 mg PO DAILY metoprolol succinate 25 mg tablet extended release 24 hr 25 mg PO DAILY (DME) Handicap Parking Placard See Rx Instructions .Route .MEDSUPPLY Qty: 1 0RF Rx Instructions: As directed sacubitril-valsartan [Entresto] 24-26 mg tablet 1 tab PO BID Qty: 180 3RF pantoprazole 40 mg tablet,delayed release (DR/EC) 40 mg PO BID 30 Days Qty: 60 5RF sucralfate [Carafate] 1 gram tablet 1 g PO TID 28 Days Qty: 180 2RF Eliquis 5 mg tablet 5 mg PO BID Qty: 180 3RF diphenoxylate-atropine [Lomotil] 2.5-0.025 mg tablet 1 tab PO TID PRN (Reason: diarrhea) Qty: 90 3RF furosemide 40 mg tablet 40 mg PO BID 90 Days Qty: 180 3RF carvedilol 3.125 mg tablet 3.125 mg PO BID Qty: 180 3RF Rx Instructions: must administer with a meal/food Primary Care Provider: Garry Jay Referrals: Humaira Churchill MD [Med Staff - Insulation Worker] - Print Language: U[place]ayan
--- NOTE | 2024-12-02 19:07 | CPS ---
[1833] x3 Duedelmirab given to pt. in ER
[2024-12-02] MEDS: Albumin Human 25% (100 mL) 25 GM/100 ML BAG IV ×2 (19:23→21:09)
[2024-12-02 19:27] LABS: Hematocrit 33.5 % (37-47); Hemoglobin 9.6 g/dL (12.0-15.0); Immature Granulocytes Count 0.040 X10^3/uL (0.0-0.0); Mean Corp Hgb Conc 28.7 g/dL (32-36); Mean Corpuscular Volume 90.3 fL (81-99); Mean Platelet Vol. 13.0 fl (6.2-12.0); NRBC Flagged by Analyzer 0 % (0-5); POSITIVE DIFFERENTIAL YES; Platelet Count 155 K/mm3 (150-450); RBC Distribution Width CV 16.6 % (11.6-14.6); RBC Distribution Width SD 54.7 fl (35.1-43.9); Red Blood Count 3.71 M/mm3 (4.2-5.4); White Blood Count 8.5 K/mm3 (4.4-11.0)
[2024-12-02 19:52] LABS: AST(SGOT) 30 U/L (<=31); Alanine Aminotransfer ALT/SGPT 19 U/L (<=34); Albumin, Serum 3.9 g/dL (3.4-4.8); Alkaline Phosphatase 74 U/L (35-104); Anion Gap 15 (5-15); BUN 87 mg/dL (4-19); BUN/Creat Ratio 23.1 RATIO (10-20); Bilirubin, Direct 0.30 mg/dL (0.00-0.30); Calcium,Total 9.6 mg/dL (7.6-11.0); Carbon Dioxide 23.8 mmol/L (21.0-32.0); Chloride 102 mmol/L (98-108); Estimated Creatinine Clearance 13.66 ml/min (50-250); Globulin 2.1 g/dL (2.2-4.2); Glucose 120 mg/dL (70-99); Magnesium 2.8 mg/dL (1.5-2.2); Potassium 4.3 mmol/L (3.3-5.1)
--- NOTE | 2024-12-02 19:55 | RAD_ITS ---
EXAM: XR Chest, 2 Views CLINICAL INDICATION: SHORTNESS OF BREATH TECHNIQUE: Frontal and lateral views of the chest. COMPARISON: No relevant prior studies available. FINDINGS: LUNGS AND PLEURAL SPACES: See below. HEART: Cardiomegaly with mild congestion. MEDIASTINUM: Unremarkable. Normal mediastinal contour. BONES/JOINTS: Unremarkable. No acute fracture. TUBES, LINES AND DEVICES: Left-sided cardiac pacemaker. RAD/Chest PA and Lateral IMPRESSION: Cardiomegaly with mild congestion. Reading Location: [id number]
[2024-12-02 20:06] LABS: Pro- Brain NATRIURETIC PEPTIDE 19538 pg/mL (<=1800); Troponin T High Sensitivity 166 ng/L (<=14)
--- NOTE | 2024-12-02 20:06 | ED.RN ---
no fluid resucitation d/t CHF. Albumin ordered
--- NOTE | 2024-12-02 20:30 | ED.RN ---
per dr. noel, pt is not a sepsis alert and she will not be treated as one.
--- NOTE | 2024-12-02 20:41 | PCM.HP.STD ---
HPI - General General Date of Admission: 12/02/24 Date of Service: 12/02/24 Chief Complaint: Shortness of breath HPI Narrative JAUN BUCKNER, is a 79 F who presents to the emergency room with chief complaint of shortness of breath. Patient has significant past medical history of congestive heart failure and edema and was placed on an increased dose of Lasix 2 weeks ago. In the past 4 days since increasing her dose she has noticed increasing weight and more difficulty in breathing and fatigue. Patient denies any chest pain, nausea, vomiting or diarrhea at the present time. Laboratory studies are remarkable for an increased BUN of 87 and creatinine of 3.75, troponin of 166, BN TP of 19,538 and CBC is normal. In the emergency room albumin was given, however, patient albumin level returned at a normal level. Due to low blood pressure patient was unable to be further diuresed in the emergency room. She will be admitted to progressive care unit with consults to cardiology and nephrology. Patient expressed her wish to be do not resuscitate Comfort Care arrest. [facility] Medical History Wears glasses Post-menopausal Anxiety Arthritis Back pain Syncope Former smoker Shortness of breath on exertion Hoarseness Hypertension History of stress test History of echocardiogram Cardiology follow-up encounter History of atrial fibrillation Chronic combined systolic and diastolic CHF (congestive heart failure) Hypertrophic cardiomyopathy 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 Longstanding persistent atrial fibrillation Hypothyroidism Secondary pulmonary arterial hypertension Vocal cord paralysis, unilateral complete Sick sinus syndrome Hyperlipidemia Left ventricular diastolic dysfunction FH: sudden cardiac (SCD) Home Medications ?Medication ?Instructions ?Recorded ?Last Taken ?Type aspirin 81 mg chewable tablet 81 mg PO DAILY@0800 Heart 01/22/15 06/05/24 History Held on 06/25/24. Instructions: Resume on 07/08/24. albuterol sulfate 90 mcg/actuation 2 puff inhalation Q6H PRN 10/14/20 06/06/24 History aerosol inhaler shortness of breath or wheezing magnesium 200 mg tablet 200 mg PO DAILY replaceme 09/21/21 06/01/24 History Handicap Parking Placard #1 ea 06/26/23 Unknown Rx sacubitril 24 mg-valsartan 26 mg 1 tab PO BID #180 tabs 06/11/24 Unknown Rx tablet (Entresto) levothyroxine 150 mcg tablet 150 mcg PO QDAY 07/12/24 Unknown History spironolactone 50 mg tablet 25 mg PO Q OTHER DAY 07/12/24 Unknown History pantoprazole 40 mg tablet,delayed 40 mg PO BID 30 days #60 tabs 07/24/24 Unknown Rx release sucralfate 1 gram tablet (Carafate) 1 g PO TID 4 weeks #180 tabs 07/24/24 Unknown Rx apixaban 5 mg tablet (Eliquis) 5 mg PO BID #180 tabs 08/08/24 Unknown Rx acetaminophen 500 mg tablet 1,000 mg PO Q8 PRN 09/25/24 Unknown History ferrous sulfate 324 mg (65 mg 324 mg PO QDAY 09/25/24 Unknown History iron) tablet,delayed release multivitamin 1 tab PO QAM 09/25/24 Unknown History vit C 250 mg-vit E 90 mg-zinc 40 1 tab PO DAILY 09/25/24 Unknown History mg-copper 1 [id number] capsule (PreserVision AREDS-2) diphenoxylate-atropine 2.5 1 tab PO TID PRN diarrhea #90 tabs 10/14/24 Unknown Rx mg-0.025 mg tablet (Lomotil) furosemide 40 mg tablet 40 mg PO BID CHF 90 days #180 tabs 10/24/24 Unknown Rx carvedilol 3.125 mg tablet 3.125 mg PO BID #180 tabs 11/18/24 Unknown Rx metoprolol succinate 25 mg 25 mg PO DAILY 12/02/24 Unknown History tablet,extended release 24 hr verapamil 120 mg tablet,extended 120 mg PO DAILY 12/02/24 Unknown History release Allergy/AdvReac Type Severity Reaction Status Date / Time metoprolol Allergy Severe Abdominal Verified 12/02/24 17:33 pain, poor rate control amoxicillin Allergy Rash Verified 12/02/24 17:33 lisinopril Allergy Dry cough Verified 12/02/24 17:33 risedronate sodium (From AdvReac Rash Verified 12/02/24 17:33 Actonel) Family History Mother Cancer breast Sister Cancer breast and malignant melanoma Diabetes Brother Arrhythmia Surgical History History of laryngoscopy Hx of hemorrhoidectomy History of colonoscopy History of radiofrequency ablation procedure for cardiac arrhythmia (1999) History of hysterectomy Presence of permanent cardiac pacemaker (01/04/12) History of left heart catheterization (03/09/15) History of implantable cardiac defibrillator (ICD) History of dental surgery Hx of LASIK History of vocal cord surgery Social History Smoking Status: Former smoker how long ago did patient quit smokin years ago alcohol intake: never substance use type: does not use caffeine: No ROS Constitutional Constitutional: Reports change in weight, fatigue and weight gain; Denies chills or fever(s) Eyes Eyes: Denies blurry vision ENT HEENT: Denies abnormal hearing Cardiovascular Cardiovascular: Reports orthopnea; Denies chest pain Respiratory/Chest Respiratory/Chest: Reports shortness of breath with exertion; Denies cough Gastrointestinal Gastrointestinal: Denies abdominal pain Genitourinary Genitourinary: Denies dysuria Musculoskeletal Musculoskeletal: Denies back pain Integumentary Integumentary: Reports dry skin Neurologic Neurologic: Denies abnormal speech or confusion Psychiatric Psychiatric: Denies anxiety or depression Vital Signs Vital Signs Vital Signs: 12/02/24 17:26 12/02/24 17:37 12/02/24 17:42 Temperature 98 F 98 F Temperature Source Oral Oral Pulse Rate 80 80 Respiratory Rate 26 H 26 H Respiratory Effort Short of Breath Labored Accessory Muscle Use Respiratory Depth Deep Respiratory Pattern Tachypnea Blood Pressure 89/75 L 87/65 L Blood Pressure Mean 79 72 Pulse Ox 100 100 Oxygen Delivery Method Room Air Room Air Room Air 12/02/24 18:33 12/02/24 19:37 12/02/24 20:00 Temperature 98.0 F 97.9 F Temperature Source Temporal Temporal Pulse Rate 84 79 79 Respiratory Rate 18 18 15 Respiratory Effort Respiratory Depth Respiratory Pattern Normal Blood Pressure 91/61 86/64 L Blood Pressure Mean 71 71 Pulse Ox 100 97 Oxygen Delivery Method Room Air Room Air Weight Weight: 197 lb 1.492 oz Body Mass Index (BMI) 32.8 Physical Exam Const oriented x3 General Appearance: cooperative HEENT normocephalic and head/scalp atraumatic Eyes PERRL Neck no lymphadenopathy Lymph Lymphatic: no lymphadenopathy noted Resp normal respiratory effort, normal air movement and clear to auscultation bilaterally Cardio S1 normal heart sound and S2 normal heart sound Rhythm: abnormal rhythm irregularly irregular GI normal to inspection, nondistended, normoactive bowel sounds Extremity General Extremity: edema bilateral lower extremity Skin General Skin Exam: dry skin Neuro no focal motor deficits and no sensory deficits noted Psych thought process normal, cooperative and affect normal Results Lab / Micro Data 12/02/24 19:13 12/02/24 19:13 Labs: Laboratory Results - last 24 hr 12/02/24 19:13: WBC 8.5, RBC 3.71 L, Hgb 9.6 L, Hct 33.5 L, MCV 90.3, MCH 25.9 L, MCHC 28.7 L, RDW Std Deviation 54.7 H, RDW Coeff of Linda 16.6 H, Plt Count 155, MPV 13.0 H, Immature Gran % (Auto) 0.500, Neut % (Auto) 91.2 H, Lymph % (Auto) 3.4 L, [place] % (Auto) 3.7, Eos % (Auto) 0.6, Baso % (Auto) 0.6, Absolute Neuts (auto) 7.7, Absolute Lymphs (auto) 0.29 L, Nucleated RBC % 0, Sodium 140, Potassium 4.3, Chloride 102, Carbon Dioxide 23.8, Anion Gap 15, BUN 87 H, Creatinine 3.75 H, Estim Creat Clear Calc 13.66 L, Est GFR (MDRD) Non-Af 12 L, BUN/Creatinine Ratio 23.1 H, Glucose 120 H, Calcium 9.6, Magnesium 2.8 H, Total Bilirubin 0.55, Direct Bilirubin 0.30, AST 30, ALT 19, Alkaline Phosphatase 74, Troponin T High Sens 166 H*, [place] [address] H, Total Protein 6.1, Albumin 3.9, Globulin 2.1 L Micro: Microbiology 12/02/24 18:14 Stool Stool Occult Blood ([facility]) - Final Occult Blood Positive Imaging Radiology Impression Chest X-Ray 12/02/24 19:55 IMPRESSION: Cardiomegaly with mild congestion. Reading Location: [id number] Assessment & Plan Assessment/Plan (1) Elevated troponin: (2) Dyspnea: (3) Fatigue: (4) Shortness of breath on exertion: (5) Hyperlipidemia: QUALIFIERS: Hyperlipidemia type: pure hypercholesterolemia Qualified Code(s): E78.00 - Pure hypercholesterolemia, unspecified; E78.0 - Pure hypercholesterolemia (6) Longstanding persistent atrial fibrillation: (7) Acute kidney failure: (8) CHF (congestive heart failure): PLAN: Plan 1 shortness of breath secondary congestive heart failure and renal failure?admit patient to progressive care unit, consult nephrology due to acute on chronic kidney disease and possible need for dialysis due to fluid overload and inability to diurese due to hypotension. Will consult cardiology further to assist further with management of congestive heart failure and is complicated by hypotension. Will obtain echocardiogram, cycle cardiac enzymes, repeat BMP in a.m. at this time her elevated troponin is likely secondary to cardiac strain from her heart failure. Patient expressed direct wish to be DNR Comfort Care arrest and does not want extreme measures to resuscitate her. Will continue oxygen to support SPO2 greater than 90%. 2. Atrial fibrillation?continue anticoagulation but will decrease her Eliquis dose to 2.5 mg p.o. twice daily due to age and renal disease 3. Hyperlipidemia?continue statin medication 4. DVT prophylaxis?patient is on Eliquis Charges/Coding Visit Charges Inpatient E&M: 57797 Init Hosp L2
--- NOTE | 2024-12-02 21:40 | ECHOD_ITS ---
Reason For Study Reason For Study: CONGESTIVE HEART FAILURE Procedure This was a 2D Doppler, Color Flow transthoracic echocardiogram. The study was technically difficult. Exam performed portable in patient room. Left Ventricle Normal LV size. Severe eccentric left ventricular hypertrophy. The left ventricular ejection fraction is 45 %. Stage 3 diastolic dysfunction. There is mild global hypokinesis of the left ventricle. [place] : Severely Hypokinetic. Right Ventricle Moderately dilated right ventricle. ICD or pacer leads identified within the right ventricle. Mild to moderate global right ventricular systolic dysfunction. Atria The left atrium is severely enlarged. The right atrium is severely enlarged. Mitral Valve Normal mitral valve. Tricuspid Valve Normal tricuspid valve. Mild (1+) tricuspid valve insufficiency. Pulmonary artery systolic pressure is 33 mmHg. Aortic Valve Trisinus/trileaflet aortic valve. Mild (1+) eccentric aortic valve insufficiency. Pulmonic Valve Normal pulmonic valve. Mild pulmonic valve insufficiency identified. Great Vessels Normal aortic root. The pulmonary artery is normal size. The inferior vena cava is dilated. and does not collapse. Pericardium/Pleural Small (<1.0 cm) pericardial effusion. MMode/2D Measurements & Calculations LVIDd: 3.9 cm IVSd: 1.8 cm LVOT diam: 2.1 cm LVIDs: 2.8 cm LVPWd: 0.99 cm LVOT area: 3.3 cm2 RVDd: 4.0 cm FS: 27.5 % asc Aorta Diam: 3.8 cm LAV(MOD-bp): 131.7 ml LVAd ap4: 19.6 cm2 LAV(MOD-bp) Indexed: 67.9 ml/m2 LVLd ap4: 6.5 cm LAV(MOD-sp2): 127.3 ml EDV(MOD-sp4): 48.1 ml LAV(MOD-sp4): 135.0 ml EDV(sp4-el): 50.2 ml LVAs ap4: 13.9 cm2 LVLs ap4: 5.7 cm ESV(MOD-sp4): 28.2 ml ESV(sp4-el): 28.6 ml EF(MOD-sp4): 41.4 % EF(sp4-el): 43.0 % LVAd ap2: 21.3 cm2 SV(MOD-sp4): 19.9 ml SV(MOD-sp2): 21.4 ml LVLd ap2: 6.8 cm SI(MOD-sp4): 10.3 ml/m2 SI(MOD-sp2): 11.0 ml/m2 EDV(MOD-sp2): 54.8 ml EDV(sp2-el): 57.0 ml LVAs ap2: 15.8 cm2 LVLs ap2: 5.9 cm ESV(MOD-sp2): 33.4 ml ESV(sp2-el): 35.7 ml EF(MOD-sp2): 39.0 % SV(sp4-el): 21.6 ml Ao sinus diam: 3.[address] Junction: 3.1 cm LA dimension(2D): 5.4 cm LA A4 area: 36.6 cm2 RA A4 area: 35.5 cm2 TAPSE: 0.63 cm Time Measurements MV dec time: 0.10 sec Doppler Measurements & Calculations MV E max jovanni: 83.8 cm/sec Lat Peak E' Jovanni: 7.7 cm/sec Med Peak E' Jovanni: 7.7 cm/sec MV A max jovanni: 34.4 cm/sec E/E' lat: 10.9 E/E' med: 10.9 MV E/A: 2.4 MV dec slope: 839.0 cm/sec2 Ao V2 max: 105.2 cm/sec AI max jovanni: 240.8 cm/sec Ao max P.4 mmHg AI max P.2 mmHg Ao V2 mean: 77.8 cm/sec AI dec slope: 129.0 cm/sec2 Ao mean P.7 mmHg AI P1/2t: 546.7 msec Ao V2 VTI: 24.4 cm AV (velocity ratio): 0.85 WEI(I,D): 2.8 cm2 WEI(V,D): 3.4 cm2 LV V1 max: 108.3 cm/sec SV(LVOT): 68.9 ml PA V2 max: 86.5 cm/sec LV V1 max P.7 mmHg LV V1 mean P.7 mmHg LV V1 mean: 77.7 cm/sec LV V1 VTI: 20.8 cm TR max jovanni: 270.7 cm/sec TR max P.3 mmHg ECHO/Echo Complete Interpretation Summary Normal LV size. The left ventricular ejection fraction is 45 %. Severe eccentric left ventricular hypertrophy. Stage 3 diastolic dysfunction. [place] : Severely Hypokinetic. Compared to previous study, the left ventricular systolic function is the same. . Ordering Physician: Randall Stoddard Performed By: Marisol Hunter RDCS
[2024-12-02 21:56] LABS: Troponin T High Sens 2 HR 137 ng/L (<=14)
--- OUTSIDE RECORDS SUMMARY | 2024-12-02 23:10 | XMS RPT_ITS | CCD ---
Author Organization [facility]iniSytn Care Team Providers Care Manager [employer] Name Role Phone TRINY SOL Unavailable Unavailable TRINY SOL Unavailable Unavailable FEDE DUONG Unavailable Unavailable FEDE DUONG Unavailable Unavailable Dr. Humaira Churchill Primary Care Provider Dr. Jamie Christina Attending Provider [phone] Jamie Christina Referring Provider [phone] Humaira Churchill Primary Care Provider Dr. Humaira Churchill Referring Provider Dr. Jamie Christina Attending Provider Dr. Jamie Christina Referring Provider Dr. Humaira Churchill Primary Care Provider Dr. Jamie Christina Attending Provider Dr. Humaira Churchill Primary Care Provider Dr. Humaira Churchill Referring Provider Dr. Jamie Christina Attending Provider Clair Crawford Attending Provider Unavailable Dr. Jamie Christina Referring Provider Dr. Humaira Churchill Primary Care Provider Dr. Jamie Christina Attending Provider Dr. Jamie Christina Referring Provider Dr. Humaira Churchill Primary Care Provider Dr. Humaira Churchill Referring Provider Clair Crawford Attending Provider Unavailable Sanford, Dr. Ayala Attending Provider Dr. Humaira Churchill Primary Care Provider Zhao, Dr. Humaira Alston Attending Provider Zhao, Dr. Humaira Alston Primary Care Provider Zhao, Dr. Humaira Alston Attending Provider Zhao, Dr. Humaira Alston Primary Care Provider Zhao, Dr. Humaira Alston Referring Provider Clair Crawford Attending Provider Unavailable Sanford, Dr. Ayala Attending Provider Dr. Humaira Churchill Primary Care Provider Sanford, Dr. Ayala Attending Provider Sanford, Dr. Ayala Referring Provider Zhao, Dr. Humaira Alston Referring Provider Clair Crawford Attending Provider Unavailable Sanford PADILLA, Dr. Ayala Attending Provider Sanford PADILLA, Dr. Ayala Referring Provider Zhao PADILLA, Dr. Humaira Alston Primary Care Provider Joann Tate Other Provider Dr. Jos Mejia DO Attending Provider Jackie SMITH, Dr. Arguello Referring Provider Joann Tate Attending Provider Joann Tate Referring Provider Dr. Jos Mejia DO Admit Provider Dr. Jos Mejia DO Other Provider Dr. Royce Nix MD Other Provider Shaina PADILLA, Dr. Rochelle Muniz Attending Provider Shaina PADILLA, Dr. Rochelle Muniz Other Provider Richi PADILLA, Dr. Pereira Attending Provider Richi PADILLA, Dr. Pereira Referring Provider Shreya SMITH, Dr. Green Emergency Provider [phone] Monae PADILLA, Dr. Grimes Admit Provider Unavailable Monae PADILLA, Dr. Grimes Other Provider Unavailable Naresh PADILLA, Dr. Jos Hooks Attending Provider Monae PADILLA, Dr. Grimes Attending Provider Unavaila ble Anthony SMITH, Dr. Garner Attending Provider Monae PADILLA, Dr. Grimes Referring Provider Unavaila svitlana Galvez MD, Dr. Hwang Other Provider Danni PADILLA, Dr. Oropeza Other Provider Sumit PADILLA, Dr. Ratliff Other Provider [phone] Anthony SMITH, Dr. Garner Other Provider Becki PADILLA, Dr. Cornelio Medina Other Provider Robert PADILLA, Dr. Davis Other Provider Geni PADILLA, Dr. Garcia Other Provider Jessica PADILLA, Dr. Mallory Other Provider Marge PADILLA, Dr. Rueda Other Provider [phone] Fabricio PADILLA, Dr. Ureña Other Provider Tremaine PADILLA, Dr. Quiles Other Provider Brianna PADILLA, Dr. Triplett Other Provider Justin PADILLA, Dr. Hernandez Other Provider Unavailalisa Tate MD, Dr. Dan Other Provider [phone] Dwain PADILLA, Dr. Willis Other Provider [phone] Carlos PADILLA, Dr. Gurrola Other Provider Brie PADILLA, Dr. Larose Other Provider Dr. Getachew Leon DO Other Provider [phone] Kristie PADILLA, Dr. Page Other Provider Randy PADILLA, Dr. Harmon Other Provider Ernesto SMITH, Dr. Bond Other Provider Ramos PADILLA, Dr. Yeung Other Provider Roland PADILLA, Dr. Li Other Provider Robert SMITH, Dr. Hill Attending Provider Naresh PADILLA, Dr. Jos Hooks Other Provider Zhao PADILLA, Dr. Humaira Alston Attending Provider Zhao PADILLA, Dr. Humaira Alston Referring Provider Zhao PADILLA, Dr. Humaira Alston Primary Care Provider Sanford PADILLA, Dr. Ayala Attending Provider Sanford PADILLA, Dr. Ayala Referring Provider Joann Tate Other Provider Jackie SMITH, Dr. Arguello Referring Provider Dr. Jos Mejia DO Attending Provider Dr. Jamie Christina MD Attending Provider Dr. Jamie Christina MD Referring Provider Zhao PADILLA, Dr. Humaira Alston Primary Care Provider Joann Tate Other Provider Joann Tate Attending Provider Georgina NEAR EASTERN ARCHAEOLOGY LECTURER-CLeón Attending Provider Zhao PADILLA, Dr. Humaira Alston Primary Care Provider Joann Tate Other Provider Sanford PADILLA, Dr. Ayala Attending Provider Dr. Jamie Christina MD Referring Provider Roof NEAR EASTERN ARCHAEOLOGY LECTURER-C, León H Referring Provider Zhao PADILLA, Dr. Humaira Alston Primary Care Provider Zhao PADILLA, Dr. Humaira Alston Primary Care Provider Zhao PADILLA, Dr. Humaira Alston Attending Provider Zhao PADILLA, Dr. Humaira Alston Referring Provider Robert SMITH, Dr. Hill Attending Provider Sunny RENE, Joann Wong Attending Provider Joann Tate Other Provider [phone] Sanford PADILLA, Dr. Ayala Attending Provider [phone] Sanford PADILLA, Dr. Ayala Referring Provider Roof NEAR EASTERN ARCHAEOLOGY LECTURER-C, León H Attending Provider Roof NEAR EASTERN ARCHAEOLOGY LECTURER-C, Elón H Referring Provider Zhao PADILLA, Dr. Humaira Alston Primary Care Provider Zhao PADILLA, Dr. Humaira Alston Referring Provider Zhao PADILLA, Dr. Humaira Alston Attending Provider Jos Infante Attending Unavailable Cornelio Licona Admitting Unavailable Cornelio Licona Consulting Unavailable Jolliff, Humaira S Primary Care Unavailable Spittgurvinder, Jos Referring Unavailable SpittJos hollins Admitting Unavailable Royce Nix Consulting Unavailable Jolliff, Humaira S Primary Care Unavailable AnayttleJos Attending Unavailable Rochelle Merritt Consulting Unavailable Jolliff, Humaira S Primary Care Unavailable Jolliff, Humaira S Referring Unavailable Jolliff, Humaira S Attending Unavailable Jolliff, Humaira S Primary Care Unavailable Sanford, [place] Referring Unavailable Sanford, [place] Attending Unavailable Jolliff, Humaira S Attending Unavailable Jolliff, Humaira S Primary Care Unavailable Jolliff, Humaira S Referring Unavailable Jolliff, Humaira S Primary Care Unavailable Jolliff, Humaira S Referring Unavailable Clair Crawford Attending Unavailable Jolliff, Humaira S Primary Care Unavailable [place]ford, [place] Referring Unavailable Sanford, [place] Attending Unavailable Jolliff, Humaira S Primary Care Unavailable Jolliff, Humaira S Referring Unavailable Jolliff, Humaira S Attending Unavailable Joann Tate Consulting Unavail able Sunny RENE, Joann Wong Consulting Unavail able Sanford, Jamie Referring Unavailable Sanford, Jamie Attending Unavailable Jolliff, Humaira S Primary Care Unavailable Jos Mejia Attending Unavailable Anayttgurvinder, Jos Referring Unavailable Jolliff, Humaira S Primary Care Unavailable Joann Tate Consulting Unavail able Jolliff, Humaira S Primary Care Unavailable Sanford, Jamie Referring Unavailable Sanford, Jamie Attending Unavailable Jolliff, Humaira S Primary Care Unavailable Bahman Hollins Attending Unavailable Jolliff, Humaira S Primary Care Unavailable Randall Stoddard Referring Unavailable StoddardRandall Attending Unavailable [place], [place] Attending Unavailable Jolliff, Humaira S Primary Care Unavailable [place]ford, [place] Referring Unavailable Joann Tate Attending Unavail able Sunny RENE, Joann Wong Referring Unavail able Jolliff, Humaira S Primary Care Unavailable Joann Tate Consulting Unavail able Jolliff, Humaira S Primary Care Unavailable Sanford, Jamie Attending Unavailable Sanford, [place] Referring Unavailable Jolliff, Humaira S Primary Care Unavailable Sanford, [place] Attending Unavailable Jolliff, Humaira S Primary Care Unavailable Sanford, [place] Referring Unavailable Sanford, [place] Attending Unavailable Jolliff, Humaira S Primary Care Unavailable [place]ford, [place] Attending Unavailable Jolliff, Humaira S Referring Unavailable Jolliff, Humaira S Primary Care Unavailable Friend, Sergio Attending Unavailable Jolliff, Humaira S Primary Care Unavailable Sanford, Jamie Attending Unavailable Sanford, Jamie Referring Unavailable Jolliff, Humaira S Referring Unavailable Jolliff, Humaira S Primary Care Unavailable León Erickson NP Attending Unavailable Jolliff, Humaira S Primary Care Unavailable Sanford, Jamie Attending Unavailable Sanford, Jamie Referring Unavailable Friend, Sergio Attending Unavailable Jolliff, Humaira S Primary Care Unavailable Jolliff, Humaira S Referring Unavailable Jolliff, Humaira S Referring Unavailable Jolliff, Humaira S Primary Care Unavailable [place], [place] Attending Unavailable Jolliff, Humaira S Primary Care Unavailable Sanford, Jamie Referring Unavailable Sanford, Jamie Attending Unavailable Jos Infante Attending Unavailable Cornelio Licona Admitting Unavailable Cornelio Licona Consulting Unavailable Jolliff, Humaira S Primary Care Unavailable Jos Infante Consulting Unavailable Lissaiff, Humaira S Primary Care Unavailable Cornelio Licona Attending Unavailable Jackie, Jos Referring Unavailable Jolliff, Humaira S Primary Care Unavailable Sanford, Jamie Attending Unavailable Jolliff, Humaira S Primary Care Unavailable Sanford, Jamie Attending Unavailable Jolliff, Humaira S Primary Care Unavailable [place]ford, [place] Referring Unavailable Sanford, Jamie Attending Unavailable Koram, Rochelle Cristy Attending Unavailable Spittle, Jos Referring Unavailable Spittle, Jos Admitting Unavailable WeemanRoyce Consulting Unavailable Jolliff, Humaira S Primary Care Unavailable Koram, Rochelle Cristy Consulting Unavailable Jackie Jos Consulting Unavailable Spittle, Jos Referring Unavailable Spittle, Jos Admitting Unavailable WeemanRoyce Consulting Unavailable Jolliff, Humaira S Primary Care Unavailable Koram, Rochelle Cristy Attending Unavailable Koram, Rochelle Cristy Consulting Unavailable Kelseyle, Jos Consulting Unavailable Jolliff, Humaira S Primary Care Unavailable Pascual Cruz Attending Unavailable Cornelio Licona Referring Unavailable Robert, Sergio Attending Unavailable Jaiden Galvez Consulting Unavailable Cornelio Licona Referring Unavailable Sandip Razo Consulting Unavailable Gaudencio Arana Consulting Unavailable Pascual Cruz Consulting Unavailable Cornelio Connell Consulting Unavailable Ryan Jones Consulting Unavailable Jose Arechiga Consulting Unavailable Shawnee Lopez Consulting UnavailMohit Hawkins Consulting Unavailable Niranjan Regalado Consulting Unavailable Kb Penaloza Consulting Unavailable Ioana Reed Consulting Unavailable Algrace Lamlety Consulting Unavailable Tate, Ni Consulting Unavailable Dwain, Lazaro Consulting Unavailable IrukDestiny garciaan Consulting Unavailable Brie, Thuan Consulting Unavailable Mckay Leondeep Consulting Unavailable Camilo Flowers Consulting Unavailable Faustino Padilla Consulting Unavailable Varun Orozco Consulting Unavailable Ramos, Gamal Consulting Unavailable Guillermo Watkins Consulting Unavailable Cornelio Licona Attending Unavailable Pascual Cruz Attending Unavailable Jolliff, Humaira S Primary Care Unavailable Sanford, Jamie Referring Unavailable Sanford, Jamie Attending Unavailable Jolliff, Humaira S Primary Care Unavailable Sanford, Jamie Attending Unavailable Sanford, [place] Referring Unavailable Jolliff, Humaira S Primary Care Unavailable Roof NEAR EASTERN ARCHAEOLOGY LECTURER, León H Attending Unavailable Jolliff, Humaira S Referring Unavailable Jolliff, Humaira S Primary Care Unavailable Sanford, Jamie Attending Unavailable Spittle, Jos Attending Unavailable Spittle, Jos Referring Unavailable Jolliff, Humaira S Primary Care Unavailable Jolliff, Humaira S Primary Care Unavailable Sunny RENE, Joann Wong Consulting Unavail able Sanford, Jamie Referring Unavailable Sanford, [place] Attending Unavailable Jolliff, Humaira S Attending Unavailable Jolliff, Humaira S Primary Care Unavailable Jolliff, Humaira S Referring Unavailable Jolliff, Humaira S Primary Care Unavailable Roof NEAR EASTERN ARCHAEOLOGY LECTURER, León H Referring Unavailable Roof NEAR EASTERN ARCHAEOLOGY LECTURER, León H Attending Unavailable Jolliff, Humaira S Primary Care Unavailable Sanford, Jamie Referring Unavailable Sanford, Jamie Attending Unavailable Jolliff, Humaira S Primary Care Unavailable Roof NEAR EASTERN ARCHAEOLOGY LECTURER, León H Attending Unavailable Roof NEAR EASTERN ARCHAEOLOGY LECTURER, León H Referring Unavailable Jolliff, Humaira S Primary Care Unavailable Sanford, Jamie Referring Unavailable Sanford, Jamie Attending Unavailable Jolliff, Humaira S Primary Care Unavailable Joann Tate Attending Unavail able Jolliff, Humaira S Referring Unavailable Jolliff, Humaira S Primary Care Unavailable Sanford, [place] Referring Unavailable Sanford, [place] Attending Unavailable Jolliff, Humaira S Primary Care Unavailable Jolliff, Humaira S Referring Unavailable Melendez NEAR EASTERN ARCHAEOLOGY LECTURER, Yin Attending Unavailable Sergio Jones Attending Unavailable Jolliff, Humaira S Primary Care Unavailable Dr. Humaira Churchill MD Primary Care Provider Dr. Humaira Churchill MD Attending Provider Dr. Humaira Churchill MD Referring Provider Dr. Sergio Jones DO Attending Provider Dr. Jamie Christina MD Attending Provider Dr. Jamie Christina MD Referring Provider Dr. Jules Torres DO Emergency Provider Garry Jay MD Primary Care Provider Richi PADILLA, Dr. Pereira Admit Provider Richi PADILLA, Dr. Pereira Attending Provider [phone] Frandy PADILLA, Dr. Albright Other Provider Dr. Mali Watson DO Other Provider [phone] Allergies Allergy Classification Reported Allergen(s) Allergy Type Date of Onset Reaction(s) Facility (20 sources) Amoxicillin; Translations: [AMOXICILLIN] Drug Allergy 2 AOF, Unknown, Rash [facility] Rep[facility] (2 sources) prednisoLONE; Translations: [PREDNISOLONE] Drug Allergy 2 AOF [facility] Rep[facility] (2 sources) Risedronate; Translations: [RISEDRONATE] Drug Allergy 2 AOF [facility] Rep[facility] (20 sources) Lisinopril Drug Allergy 1 Dry cough [facility] (20 sources) Metoprolol Drug Allergy 1 Abdominal pain, poor rate control [facility] (20 sources) Risedronate Drug Allergy 1 Unknown, Rash [facility] (1 source) Lisinopril Drug Allergy 5 [facility] Repository (1 source) Metoprolol Drug Allergy 5 [facility] Repository (1 source) Risedronate Drug Allergy 5 [facility] Repository Medications Current Medications Medication Drug Class(es) Dates Sig (Normalized) Sig (Original) acetaminophen 500 mg oral tablet (20 sources) Start: 06-09-2024 End: 09-25-2024 take 2 tablets by mouth every eight hours as needed Acetaminophen 500 mg tablet Active 1000 mg PO EVERY 8 HOURS as needed September 25, 2024 11:31am Start: 10-14-2020 End: 06-09-2024 take 1 tablet by mouth at bedtime Acetaminophen (Children's Tylenol) 160 mg tablet,chewable Discontinued 160 mg PO AT BEDTIME October 14, 2020 12:00am June 09, 2024 3:07pm Start: 03-06-2015 End: 01-30-2018 take 80 mg by mouth at bedtime Acetaminophen 160 MG/5 ML suspension Discontinued 80 mg PO AT BEDTIME March 06, 2015 12:00am January 30, 2018 10:31am Start: 03-06-2015 End: 01-30-2018 [id number] 200 actuat albuterol 0.09 mg/actuat metered dose inhaler (20 sources) beta2-Adrenergic Agonist Start: 10-14-2020 Albut claudette Sulfate 90 mcg/actuation HFA aerosol inhaler Active 2 NMA INHALATION EVERY 6 HOURS as needed for shortness of breath or wheezing October 14, 2020 10:01am Start: 10-14-2020 take 1 puff(s) by in halation every six hours Albuterol Sulfate Active 2 PUFF INHALATION EVERY 6 HOURS October 14, 2020 10:01am Start: 09-04-2019 End: 10-14-2020 Albuterol Sulfate 90 mcg/act uation HFA aerosol inhaler Discontinued INHALATION September 04, 2019 12:00am October 14, 2020 10:02am Start: 09-04-2019 End: 10-14-2020 Albuterol Sulfate Discontinu ed INHALATION September 04, 2019 12:00am October 14, 2020 10:02am aspirin 81 mg chewable tablet (20 sources) Platelet Aggregation Inhibitor, Nonsteroidal Anti-inflammatory Drug Start: 01-22-2015 take 1 tablet by mouth once daily Aspirin 81 MG tablet,chewable Active 81 mg PO DAILY@0800 January 22, 2015 12:00am Heart carvedilol 3.125 mg oral tablet (20 sources) alpha-Adrenergic Ifrah, beta-Adrenergic Ifrah Start: 11-14-2024 End: 11-18-2024 take 1 tablet by mouth twice daily at mealtime Carvedilol 3.125 mg tablet Active 3.125 mg PO TWICE A DAY 180 3 November 18, 2024 9:12am heart must administer with a meal/food Start: 09-22-2020 End: 09-28-2020 take 1 tablet by mouth twice daily at mealtime Carvedilol 6.25 mg tablet Discontinued 6.25 mg PO TWICE A DAY 60 September 22, 2020 12:00am September 28, 2020 5:21pm must administer with a meal/food ferrous sulfate 324 mg delayed release oral tablet (8 sources) Start: 09-25-2024 take 1 tablet by mouth once daily Ferrous Sulfate 324 mg (65 mg iron) tablet,delayed release (DR/EC) Active 324 mg PO daily September 25, 2024 12:00am iron deficinct furosemide 40 mg oral tablet (20 sources) Loop Diuretic Start: 09-25-2024 End: 10-24-2024 take 1 tablet by mouth twice daily Furosemide 40 mg tablet Active 40 mg PO TWICE A DAY 180 90 October 24, 2024 11:10am [facility] Start: 07-12-2024 End: 09-25-2024 take 2 tablets by mouth every other day Furosemide 40 mg tablet Discontinued 80 mg PO every other day July 12, 2024 10:37am September 25, 2024 11:32am [facility] Start: 06-21-2024 End: 07-12-2024 take 2 tablets by mouth once daily Furosemide 40 mg Tablet Discontinued 80 mg PO DAILY June 21, 2024 1:00am July 12, 2024 10:40am [facility] Start: 03-19-2024 End: 06-09-2024 take 2 tablets by mouth once daily Furosemide 40 mg tablet Discontinued 80 mg PO DAILY March 19, 2024 1:00am June 09, 2024 11:25am Start: 08-20-2020 End: 09-23-2020 take 2 tablets by mouth once daily in the morning Furosemide 40 mg tablet Discontinued 80 mg PO EVERY MORNING 90 September 14, 2020 10:35am September 23, 2020 12:14pm Start: 11-20-2017 End: 07-12-2024 take 1 tablet by mouth in the evening Furosemide 40 mg tablet Discontinued 40 mg PO AT BEDTIME 90 May 22, 2024 1:35pm June 09, 2024 11:25am 40 mg orally 2 tablets (80 mg) in the am and 1 tablet (40 mg) in the pm; Start: 11-20-2017 End: 09-25-2024 take 1 tablet by mouth once daily in the evening Furosemide (Lasix) 40 mg tablet Discontinued 40 mg PO EVERY EVENING 90 September 14, 2020 10:34am September 23, 2020 12:15pm Start: 11-20-2017 End: 07-04-2022 take 2 tablets by mouth twice daily in the morning, then take 1 tablet by mouth in the evening Furosemide (Lasix) 40 mg tablet Discontinued 80 mg PO TWICE A DAY 270 June 29, 2021 3:49pm September 21, 2021 10:48am 80 mg AM, 40 mg PM Start: 11-20-2017 End: 07-12-2024 Start: 08-09-2017 End: 11-20-2017 take 2 tablets by mouth once daily Furosemide 20 mg tablet Discontinued 40 mg PO daily 180 3 August 09, 2017 4:40pm November 20, 2017 9:14am Start: 01-22-2015 End: 08-09-2017 take 1 tablet by mouth twice daily Furosemide 20 mg tablet Discontinued 20 mg PO TWICE A DAY 180 3 August 09, 2017 12:00am August 09, 2017 4:40pm Start: 01-22-2015 End: 11-20-2017 Handicap Parking Placard (20 sources) Start: 06-26-2023 Handicap Parki ng Placard Active 0 .Route .MEDSUPPLY 1 0 June 26, 2023 5:33pm Duration Lifetime: Renew 06/26/2028 As directed Start: 06-26-2023 Handicap Parki ng Placard Active 0 .Route .MEDSUPPLY 1 June 26, 2023 5:33pm As directed Start: 07-07-2020 Handicap Parki ng Placard Active 0 .Route .MEDSUPPLY 1 July 07, 2020 4:42pm As directed Start: 07-07-2020 End: 06-26-2023 Handicap Parking Placard Dis continued 0 .Route .MEDSUPPLY 1 0 July 07, 2020 1:00am June 26, 2023 5:33pm Duration Lifetime: Renew 07/07/2025 As directed Start: 07-07-2020 End: 06-26-2023 Handicap Parking Placard Dis continued 0 .Route .MEDSUPPLY 1 July 07, 2020 1:00am June 26, 2023 5:33pm As directed Start: 07-07-2020 Handicap Parki ng Placard Active 0 .Route .MEDSUPPLY 1 July 07, 2020 12:00am As directed Start: 07-07-2020 Handicap Parki ng Placard Active 0 .Route .MEDSUPPLY 1 July 07, 2020 1:00am As directed Lactobacillus Combination No.8 (Adult Probiotic) 3 billion cell capsule (20 sources) Start: 10-14-2020 take 3 capsules by mouth once daily Lactobacillus Combination No.8 (Adult Probiotic) 3 billion cell capsule Active 3000 MMU CELLS PO DAILY October 14, 2020 9:59am administer with a meal Start: 10-14-2020 End: 07-12-2024 take 3 capsules by mouth once daily Lactobacillus Combination No.8 (Adult Probiotic) 3 billion cell capsule Discontinued 3000 NMA PO DAILY October 14, 2020 12:00am July 12, 2024 10:38am probiotic administer with a meal Start: 10-14-2020 End: 07-12-2024 take 3 capsules by mouth once daily Lactobacillus Combination No.8 (Adult Probiotic) 3 billion cell capsule Discontinued 3000 NMA PO DAILY October 14, 2020 12:00am July 12, 2024 10:38am administer with a meal Start: 10-14-2020 take 3 capsules by m outh once daily Lactobacillus Combination No.8 (Adult Probiotic) 3 billion cell capsule Active 3000 MMU CELLS PO DAILY October 13, 2020 11:00pm administer with a meal Start: 10-14-2020 take 3 capsules by m outh once daily Lactobacillus Combination No.8 (Adult Probiotic) 3 billion cell capsule Active 3000 MMU CELLS PO DAILY October 14, 2020 12:00am administer with a meal levothyroxine sodium 0.15 mg oral tablet (20 sources) l-Thyroxine Start: 07-12-2024 take 1 tablet by mouth once daily Levothyroxine 150 mcg tablet Active 150 ug PO daily July 12, 2024 1:00am thyroid Start: 07-12-2024 take 1 tablet by justo th once daily Levothyroxine 150 mcg tablet Active 150 ug PO daily July 12, 2024 1:00am Start: 07-24-2018 End: 07-12-2024 take 1 tablet by mouth every other day Levothyroxine 100 mcg tablet Discontinued 100 ug PO every other day July 24, 2018 12:00am July 12, 2024 10:38am Thyroid Start: 07-24-2018 End: 07-12-2024 take 1 tablet by mouth every other day Levothyroxine 75 mcg tablet Discontinued 75 ug PO every other day July 24, 2018 12:00am July 12, 2024 10:38am Thyroid Start: 01-22-2015 End: 07-24-2018 Levothyroxine 125 MCG tablet Discontinued 75 ug PO DAILY January 22, 2015 12:00am July 24, 2018 9:40am Start: 01-22-2015 End: 07-24-2018 Magnesium (20 sources) Start: 09-21-2021 take 200 mg by mouth once daily Magnesium Active 200 MG PO DAILY September 21, 2021 10:47am Start: 09-21-2021 take 1 tablet by justo th once daily Magnesium 200 mg tablet Active 200 mg PO DAILY September 21, 2021 12:00am replaceme Start: 09-21-2021 take 1 tablet by justo th once daily Magnesium 200 mg tablet Active 200 mg PO DAILY September 21, 2021 12:00am Start: 09-21-2021 take 200 mg by mouth once tara y Magnesium Active 200 MG PO DAILY September 20, 2021 11:00pm Start: 09-21-2021 take 200 mg by mouth once atra y Magnesium Active 200 MG PO DAILY September 21, 2021 12:00am Multivitamin tablet (4 sources) Start: 09-25-2024 Multivitamin t ablet Active 1 {tbl} PO EVERY MORNING September 25, 2024 12:00am supplement Start: 09-25-2024 Multivitamin t ablet Active 1 {tbl} PO EVERY MORNING September 25, 2024 12:00am sacubitril 24 mg / valsartan 26 mg oral tablet (20 sources) Angiotensin 2 Receptor Ifrah Start: 06-11-2024 Sacubitril-Valsartan (Entresto) 24-26 mg tablet Active 1 {tbl} PO TWICE A DAY 180 June 11, 2024 11:00am blood pressure Start: 06-11-2024 Sacubitril-Tsering sartan (Entresto) 24-26 mg tablet Active 1 {tbl} PO TWICE A DAY 180 June 11, 2024 11:00am Start: 06-11-2024 Sacubitril-Tsering sartan (Entresto) 24-26 mg tablet Active 1 {tbl} PO TWICE A DAY 180 June 11, 2024 11:00am Start: 06-10-2024 End: 06-11-2024 Sacubitril-Valsartan (Entres to) 24-26 mg tablet Discontinued 1 {tbl} PO TWICE A DAY 180 June 10, 2024 12:56pm June 11, 2024 11:01am Start: 06-10-2024 End: 06-11-2024 Sacubitril-Valsartan (Entres to) 24-26 mg tablet Discontinued 1 {tbl} PO TWICE A DAY 180 June 10, 2024 12:56pm June 11, 2024 11:01am Start: 06-09-2024 End: 06-10-2024 Sacubitril-Valsartan (Entres to) 24-26 mg Tablet Discontinued 1 {tbl} PO TWICE A DAY 60 2 June 09, 2024 1:00am June 10, 2024 12:57pm Start: 06-09-2024 End: 06-10-2024 Sacubitril-Valsartan (Entres to) 24-26 mg Tablet Discontinued 1 {tbl} PO TWICE A DAY 60 June 09, 2024 1:00am June 10, 2024 12:57pm Start: 10-27-2020 End: 06-09-2024 Sacubitril-Valsartan (Entres to) 49-51 mg tablet Discontinued 1 {tbl} PO TWICE A DAY 180 March 11, 2024 12:51pm June 09, 2024 11:25am Start: 10-27-2020 End: 06-09-2024 spironolactone 50 mg oral tablet (20 sources) Aldosterone Antagonist Start: 07-12-2024 Spironolactone 50 mg tablet Active 25 mg PO every other day July 12, 2024 1:00am diuretic Start: 11-01-2022 End: 06-09-2024 take 1 tablet by mouth once daily Spironolactone 50 mg tablet Discontinued 50 mg PO DAILY 90 3 October 16, 2023 10:48am June 09, 2024 11:25am Start: 08-09-2017 End: 11-01-2022 Spironolactone (Aldactone) 2 5 mg tablet Discontinued 12.5 mg PO DAILY 45 90 3 December 10, 2018 11:33am April 01, 2019 11:25am Start: 08-09-2017 End: 11-01-2022 take 1 tablet by mouth once daily Spironolactone (Aldactone) 25 mg tablet Discontinued 25 mg PO DAILY 90 90 July 15, 2022 12:52pm November 01, 2022 5:17pm Start: 08-09-2017 End: 11-01-2022 take 1 tablet by mouth twice daily Spironolactone (Aldactone) 25 mg tablet Discontinued 25 mg PO TWICE A DAY 180 90 3 November 12, 2020 12:09pm November 17, 2020 8:36am THIS is a dose INCREASE Start: 08-09-2017 End: 11-01-2022 take 0.5 tablet by mouth once daily Spironolactone (Aldactone) 25 mg tablet Discontinued 25 mg PO .COMPLEX 90 3 September 27, 2017 12:06pm December 10, 2018 12:43pm 25 mg PO 0.5 tablet (12.5 mg) daily Vit C,F-Kd-Hogyi-Lutein-Zeax an (Preservision Areds-2) 594-887-70-1 zw-ksth-vm-mg capsule (20 sources) Start: 07-24-2018 take 1 tablet by mouth once daily Vit C,M-Lp-Zafdb-Lutein-Zeaxan (Preservision Areds-2) 478-295-67-1 wn-oatp-wf-mg capsule Active 1 TABLET PO DAILY July 24, 2018 9:45am Start: 07-24-2018 End: 07-12-2024 take 1 capsule by mouth once daily Vit C,D-Yg-Eeave-Lutein-Zeaxan (Preservision Areds-2) 205-433-44-1 zo-yhfm-tv-mg capsule Discontinued 1 {tbl} PO DAILY July 24, 2018 12:00am July 12, 2024 10:40am vi Start: 07-24-2018 End: 07-12-2024 take 1 capsule by mouth once daily Vit C,S-Bi-Ywfpr-Lutein-Zeaxan (Preservision Areds-2) 442-169-46-1 ac-gchl-ht-mg capsule Discontinued 1 {tbl} PO DAILY July 24, 2018 12:00am July 12, 2024 10:40am Start: 07-24-2018 take 1 tablet by justo th once daily Vit C,X-Wb-Xqiyv-Lutein-Zeaxan (Preservision Areds-2) 894-204-63-1 bh-izhf-fl-mg capsule Active 1 TABLET PO DAILY July 23, 2018 11:00pm Start: 07-24-2018 take 1 tablet by justo th once daily Vit C,L-Kr-Uqtfl-Lutein-Zeaxan (Preservision Areds-2) 952-184-73-1 bo-hbec-ok-mg capsule Active 1 TABLET PO DAILY July 24, 2018 12:00am Vit C,U-Wq-Jpywi-Lutein-Zeax an (Preservision Areds-2) 250-90-40-1 mg capsule (4 sources) Start: 09-25-2024 take 2 capsules by mouth once daily Vit C,S-Xv-Mqeji-Lutein-Zeaxan (Preservision Areds-2) 250-90-40-1 mg capsule Active 1 {tbl} PO DAILY September 25, 2024 12:00am supplement Start: 09-25-2024 take 2 capsules by m out once daily Vit C,B-Hd-Xuhkp-Lutein-Zeaxan (Preservision Areds-2) 250-90-40-1 mg capsule Active 1 {tbl} PO DAILY September 25, 2024 12:00am (20 sources) Start: 09-25-2024 Start: 08-15-2024 End: 09-25-2024 Start: 08-15-2024 Start: 07-12-2024 Start: 06-11-2024 Start: 06-10-2024 End: 06-11-2024 Start: 06-09-2024 End: 06-10-2024 Start: 06-26-2023 Start: 11-01-2022 End: 07-12-2024 Start: 09-21-2021 Start: 10-14-2020 End: 07-12-2024 Start: 07-07-2020 End: 06-26-2023 Start: 07-24-2018 End: 07-12-2024 Start: 02-01-2017 End: 06-30-2017 Completed/Discontinued Medications Medication Drug Class(es) Dates Sig (Normalized) Sig (Original) apixaban 5 mg oral tablet (20 sources) Factor Xa Inhibitor Start: 06-25-2024 End: 08-08-2024 take 1 tablet by mouth twice daily Apixaban (Eliquis) 5 mg tablet Discontinued 5 mg PO TWICE A DAY 180 3 July 03, 2024 10:19am August 08, 2024 4:27pm Areds (20 sources) Start: 02-01-2017 End: 06-30-2017 take 1 tablet by mouth once daily Areds Discontinued 1 TABLET PO DAILY February 01, 2017 9:54am June 30, 2017 10:46am Start: 02-01-2017 End: 06-30-2017 Areds Discontinued 1 {tbl} P O DAILY February 01, 2017 12:00am June 30, 2017 10:46am Start: 02-01-2017 End: 06-30-2017 take 1 tablet by mouth once daily Areds Discontinued 1 TABLET PO DAILY January 31, 2017 11:00pm June 30, 2017 9:46am Start: 02-01-2017 End: 06-30-2017 take 1 tablet by mouth once daily Areds Discontinued 1 TABLET PO DAILY February 01, 2017 12:00am June 30, 2017 10:46am atropine sulfate 0.025 mg / diphenoxylate hydrochloride 2.5 mg oral tablet (20 sources) Anticholinergic, Cholinergic Muscarinic Antagonist, Antidiarrheal Start: 08-15-2024 End: 10-14-2024 Diphenoxylate-Atropine (Lomotil) 2.5-0.025 mg tablet Discontinued 1 {tbl} PO THREE TIMES A DAY as needed for diarrhea 30 0 August 15, 2024 3:27pm September 25, 2024 11:32am Start: 08-15-2024 End: 09-25-2024 azithromycin 500 mg oral tablet (11 sources) Macrolide Antimicrobial Start: 06-25-2024 End: 07-12-2024 take 1 tablet by mouth every twenty-four hours Azithromycin 500 mg tablet Discontinued 500 mg PO EVERY 24 HOURS 2 2 0 June 25, 2024 1:00am July 12, 2024 10:37am candesartan cilexetil 8 mg oral tablet (20 sources) Angiotensin 2 Receptor Ifrah Start: 03-15-2019 End: 10-29-2019 take 1 tablet by mouth once daily Candesartan 8 mg tablet Discontinued 8 mg PO DAILY 90 3 April 01, 2019 11:23am October 29, 2019 2:33pm cefdinir 300 mg oral capsule (11 sources) Cephalosporin Antibacterial Start: 06-25-2024 End: 07-12-2024 take 1 capsule by mouth once daily Cefdinir 300 mg Capsule Discontinued 300 mg PO DAILY 4 4 0 June 25, 2024 1:00am July 12, 2024 10:37am cholecalciferol 0.025 mg oral capsule (20 sources) Vitamin D Start: 07-24-2018 End: 09-25-2024 take 1 capsule by mouth once daily Cholecalciferol (Vitamin D3) 1,000 unit capsule Discontinued 1000 U PO DAILY July 24, 2018 12:00am September 25, 2024 11:31am v Start: 09-15-2017 End: 01-30-2018 Cholecalciferol (Vitamin D3) 1,000 UNIT capsule Discontinued September 15, 2017 12:00am January 30, 2018 10:31am Start: 09-15-2017 End: 01-30-2018 Start: 06-26-2017 End: 06-30-2017 take 1 tablet by mouth once daily Cholecalciferol (Vitamin D3) 1,000 unit tablet Discontinued 1000 U PO daily June 26, 2017 1:00am June 30, 2017 10:48am diazePAM 5 mg oral tablet (20 sources) Benzodiazepine Start: 10-14-2020 End: 02-24-2021 Diazepam 5 mg tablet Discontinued 2.5 mg PO NEEDED as needed for sleep 0 October 14, 2020 10:01am February 24, 2021 1:05pm Start: 10-14-2020 End: 02-24-2021 Diazepam Discontinued 2.5 MG PO NEEDED October 14, 2020 10:01am February 24, 2021 1:05pm Start: 07-24-2018 End: 10-14-2020 Diazepam 5 mg tablet Discont inued 5 mg PO NEEDED as needed for sleep 0 July 24, 2018 9:44am October 14, 2020 10:02am Start: 06-30-2017 End: 07-24-2018 Diazepam 5 mg tablet Discont inued 2.5 mg PO NEEDED as needed for Anxiety 0 June 30, 2017 1:00am July 24, 2018 9:46am Start: 06-30-2017 End: 02-24-2021 Start: 06-30-2017 End: 07-24-2018 Diazepam Discontinued 2.5 MG PO NEEDED June 30, 2017 1:00am July 24, 2018 9:46am 24 hr dilTIAZem hydrochloride 120 mg extended release oral capsule (20 sources) Calcium Channel Ifrah Start: 06-24-2020 End: 09-14-2020 take 1 capsule by mouth once daily Diltiazem Hcl 120 mg capsule,extended release 24 hr Discontinued 120 mg PO DAILY 13 04June 24, 2020 1:00am September 14, 2020 9:45am This is a dose decrease Start: 06-16-2020 End: 06-24-2020 take 1 capsule by mouth once daily Diltiazem Hcl 180 mg capsule,extended release 24 hr Discontinued 180 mg PO DAILY 13 04June 16, 2020 1:00am June 24, 2020 5:38pm stopping Verapamil famotidine 40 mg oral tablet (20 sources) Histamine-2 Receptor Antagonist Start: 04-05-2022 End: 03-19-2024 Famotidine 40 mg tablet Discontinued 40 mg PO .COMPLEX July 04, 2022 5:31pm March 19, 2024 2:35pm 40 mg orally 2 tablets 80 mg) in am and 1 tablet (40 mg) in the afternoon; Teyn-Uezbq-Ss7-Dha-Epa -Fish-St (Glucosamine Chondroitin Plus) 860-224-91-54 mg capsule (14 sources) Start: 11-01-2022 End: 07-12-2024 Cvvi-Yfwwc-Nf6-Dha-Epa -Fish-St (Glucosamine Chondroitin Plus) 183-215-96-54 mg capsule Discontinued 1 NMA PO DAILY November 01, 2022 12:00am July 12, 2024 10:38am joint Start: 11-01-2022 End: 07-12-2024 Sppn-Mnwed-Ii1-Mxo-Vnf-Syed- St (Glucosamine Chondroitin Plus) 022-856-21-54 mg capsule Discontinued 1 NMA PO DAILY November 01, 2022 12:00am July 12, 2024 10:38am Start: 11-01-2022 Iprl-Rvfqa-Jm7 -Ybm-Smc-Uusk-St (Glucosamine Chondroitin Plus) 373-922-55-54 mg capsule Active CAP PO October 31, 2022 11:00pm Start: 11-01-2022 Blal-Ifabh-Nn9 -Rmk-Tas-Jlww-St (Glucosamine Chondroitin Plus) [id number] mg capsule Active CAP PO November 01, 2022 12:00am 12 hr guaiFENesin 600 mg extended release oral tablet (20 sources) Start: 06-30-2017 End: 01-30-2018 take 1 tablet by mouth once as needed for congestion, then take 1 tablet by mouth every twelve hours as needed for congestion Guaifenesin (Mucinex) 600 mg tablet extended release 12hr Discontinued 600 mg PO ONCE as needed for Congestion June 30, 2017 1:00am January 30, 2018 10:31am Start: 06-30-2017 End: 01-30-2018 Hydrocortisone Acetate 25 mg suppository (4 sources) Start: 08-15-2024 End: 09-25-2024 Hydrocortisone Acetate 25 mg suppository Discontinued 25 mg RC TWICE A DAY 42 0 August 15, 2024 12:00am September 25, 2024 11:32am Start: 08-15-2024 End: 09-25-2024 Hydrocortisone Acetate 25 mg suppository Discontinued 25 mg RC TWICE A DAY August 15, 2024 12:00am September 25, 2024 11:32am lisinopril 5 mg oral tablet (20 sources) Angiotensin Converting Enzyme Inhibitor Start: 11-28-2018 End: 03-15-2019 take 1 tablet by mouth once daily Lisinopril 5 mg tablet Discontinued 5 mg PO DAILY 90 6 November 28, 2018 12:00am March 15, 2019 10:47am loratadine 10 mg oral tablet (20 sources) Start: 07-24-2018 End: 05-27-2024 take 1 tablet by mouth once daily as needed Loratadine 10 mg tablet Discontinued 10 mg PO DAILY as needed for allergic symptoms July 24, 2018 12:00am May 27, 2024 9:20am magnesium oxide 400 mg oral tablet (20 sources) Start: 09-04-2019 End: 01-03-2020 take 1 tablet by mouth once daily Magnesium Oxide 400 mg magnesium tablet Discontinued 400 mg PO DAILY September 04, 2019 12:00am January 03, 2020 10:32am Start: 07-24-2018 End: 09-04-2019 take 1 tablet by mouth once daily Magnesium Oxide 200 mg magnesium tablet Discontinued 200 mg PO DAILY July 24, 2018 12:00am September 04, 2019 9:53am Start: 03-06-2015 End: 07-24-2018 Magnesium Oxide 250 MG table t Discontinued 1 {tbl} PO DAILY March 06, 2015 12:00am July 24, 2018 9:43am 24 hr metoprolol succinate 25 mg extended release oral tablet (4 sources) beta-Adrenergic Ifrah Start: 12-02-2024 End: 12-02-2024 take 1 tablet by mouth once daily Metoprolol Succinate 25 mg tablet extended release 24 hr Discontinued 25 mg PO DAILY December 02, 2024 12:00am December 02, 2024 9:25pm Start: 11-07-2024 End: 11-14-2024 take 1 tablet by mouth once daily Metoprolol Succinate 25 mg tablet extended release 24 hr Discontinued 25 mg PO DAILY 30 11 November 07, 2024 12:00am November 14, 2024 4:20pm oxyCODONE hydrochloride 5 mg oral tablet (11 sources) Opioid Agonist Start: 06-09-2024 End: 07-12-2024 take 5-10 mg by mouth every six hours Oxycodone 5 mg Tablet Discontinued 5 - 10 mg PO EVERY 6 HOURS 28 7 0 June 09, 2024 July 12, 2024 10:38am Other acute postprocedural pain Other acute postprocedural pain pantoprazole 40 mg delayed release oral tablet (20 sources) Proton Pump Inhibitor Start: 06-25-2024 End: 07-24-2024 take 1 tablet by mouth twice daily Pantoprazole 40 mg tablet,delayed release (DR/EC) Discontinued 40 mg PO TWICE A DAY 60 30 5 July 23, 2024 7:13pm July 24, 2024 10:24am sucralfate 1000 mg oral tablet (20 sources) Aluminum Complex Start: 06-25-2024 End: 07-24-2024 take 1 tablet by mouth three times daily Sucralfate (Carafate) 1 gram tablet Discontinued 1 g PO THREE TIMES A DAY 180 28 2 July 23, 2024 7:13pm July 24, 2024 10:25am traZODone hydrochloride 50 mg oral tablet (20 sources) Serotonin Reuptake Inhibitor Start: 10-27-2020 End: 09-21-2021 take 1 tablet by mouth at bedtime as needed Trazodone 50 mg tablet Discontinued 50 mg PO AT BEDTIME as needed October 27, 2020 12:00am September 21, 2021 10:47am Start: 10-27-2020 End: 09-21-2021 triamcinolone acetonide 0.055 mg/actuat metered dose nasal spray (20 sources) Corticosteroid Start: 09-15-2017 End: 07-12-2024 Triamcinolone Acetonide 1 SPRAY aerosol,spray Discontinued 1 NMA NS NEEDED as needed for Allergies September 15, 2017 12:00am July 12, 2024 10:40am Start: 09-15-2017 Triamcinolone Acetonide Active 1 SPRAY NS NEEDED September 15, 2017 12:00am Start: 02-01-2017 End: 06-30-2017 Triamcinolone Acetonide 1 SP RAY aerosol,spray Discontinued 1 NMA NS NEEDED as needed for Nasal Congestion February 01, 2017 12:00am June 30, 2017 10:48am Start: 02-01-2017 End: 06-30-2017 Triamcinolone Acetonide Disc ontinued 1 SPRAY NS NEEDED February 01, 2017 12:00am June 30, 2017 10:48am valsartan 40 mg oral tablet (20 sources) Angiotensin 2 Receptor Ifrah Start: 08-10-2020 End: 10-27-2020 Valsartan 40 mg tablet Discontinued 20 mg PO DAILY 45 3 August 10, 2020 12:00am October 27, 2020 5:02pm Start: 08-10-2020 End: 10-27-2020 Start: 07-15-2020 End: 08-10-2020 Valsartan 80 mg tablet Disco ntinued 40 mg PO DAILY 90 3 July 15, 2020 11:41am August 10, 2020 5:09pm Start: 07-01-2020 End: 07-01-2020 Valsartan 160 mg tablet Disc ontinued 80 mg PO DAILY 90 3 July 01, 2020 10:42am July 01, 2020 10:44am Start: 07-01-2020 End: 07-15-2020 take 1 tablet by mouth once daily Valsartan 80 mg tablet Discontinued 80 mg PO DAILY 90 3 July 01, 2020 10:44am July 15, 2020 11:42am Start: 07-01-2020 End: 08-10-2020 Start: 10-29-2019 End: 07-01-2020 take 1 tablet by mouth once daily Valsartan 160 mg tablet Discontinued 160 mg PO DAILY 90 3 December 26, 2019 1:40pm July 01, 2020 10:43am Start: 10-29-2019 End: 07-01-2020 verapamil hydrochloride 120 mg extended release oral tablet (20 sources) Calcium Channel Ifrah Start: 12-02-2024 End: 12-02-2024 take 1 tablet by mouth once daily Verapamil 120 mg tablet extended release Discontinued 120 mg PO DAILY December 02, 2024 12:00am December 02, 2024 9:26pm Start: 09-28-2020 End: 11-07-2024 take 1 tablet by mouth at bedtime Verapamil 120 mg tablet extended release Discontinued 120 mg PO AT BEDTIME 90 3 July 29, 2024 10:56am November 07, 2024 11:08am Start: 09-14-2020 End: 09-22-2020 take 1 tablet by mouth once daily Verapamil 120 mg tablet extended release Discontinued 120 mg PO DAILY 90 3 September 14, 2020 12:00am September 22, 2020 3:32pm Discontinue Diltiazem Start: 01-22-2015 End: 06-16-2020 take 1 capsule by mouth every twenty-four hours at bedtime Verapamil 100 mg capsule, [address] Discontinued 100 mg PO AT BEDTIME 90 3 June 12, 2020 2:31pm June 16, 2020 5:25pm warfarin sodium 2.5 mg oral tablet (20 sources) Vitamin K Antagonist Start: 03-19-2024 End: 06-25-2024 Warfarin 2.5 mg tablet Discontinued 2.5 mg PO SUFRSA March 19, 2024 1:00am June 25, 2024 11:12am a-fi On Hold: MD Funes Please contact the information source for Protocol details. Start: 03-19-2024 End: 06-25-2024 Start: 07-24-2018 End: 03-19-2024 take 1 tablet by mouth once daily Warfarin 1 mg tablet Discontinued 1 mg PO DAILY July 24, 2018 12:00am March 19, 2024 2:37pm Please contact the information source for Protocol details. Start: 05-30-2017 End: 06-25-2024 take 1 tablet by mouth once daily Warfarin 5 mg tablet Discontinued 5 mg PO .COMPLEX 90 4 December 11, 2023 1:04pm March 19, 2024 2:39pm 5 mg PO every day Please contact the information source for Protocol details. Start: 01-22-2015 End: 07-24-2018 Warfarin 6 mg tablet Discont inued 6 mg PO .COMPLEX November 07, 2017 9:31am July 24, 2018 9:42am 6 mg PO as needed for dose increase Please contact the information source for Protocol details. Start: 01-22-2015 End: 07-24-2018 Problems Active Problems Problem Classification Problem Date Documented Da te Episodic/Chronic Acute and unspecified renal failure (2 sources) Acute renal failure syndrome; Translations: [Acute kidney failure, unspecified] 12-02-2024 Episodic Cardiac dysrhythmias (20 sources) Sick sinus syndrome; Translations: [Sick sinus syndrome] Onset: 4 Chronic Chronic kidney disease (8 sources) Chronic kidney disease; Translations: [Chronic kidney disease, unspecified] Onset: 5 09-25-2024 Chronic Chronic obstructive pulmonary disease and bronchiectasis (7 sources) Chronic obstructive lung disease; Translations: [Chronic obstructive pulmonary disease, unspecified] 09-25-2024 Chronic Coagulation and hemorrhagic disorders (19 sources) Blood coagulation disorder; Translations: [Hemorrhagic disorder due to extrinsic circulating anticoagulants] Onset: 5 07-03-2024 Chronic Conduction disorders (20 sources) Cardiac pacemaker in situ; Translations: [Presence of cardiac pacemaker] Onset: 2 Chronic Comment on above: REPLACED 02/05 Congestive heart failure; nonhypertensive (20 sources) Heart failure; Translations: [Unspecified systolic (congestive) heart failure] Onset: 4 Chronic Comment on above: ON WATER PILL Deficiency and other anemia (20 sources) Anemia; Translations: [Anemia, unspecified] 06-21-2024 Episodic Deficiency and other anemia (2 sources) Anemia, unspecified; Translations: [Anemia, unspecified] Onset: 5 Episodic Disorders of lipid metabolism (20 sources) Hyperlipidemia; Translations: [Hyperlipidemia, unspecified] Chronic Comment on above: ON MED Gastrointestinal hemorrhage (19 sources) Upper gastrointestinal bleeding; Translations: [Gastrointestinal hemorrhage, unspecified] Onset: 5 07-03-2024 Episodic Gout and other crystal arthropathies (1 source) Other specified crystal arthropathies, right shoulder; Translations: [Other specified crystal arthropathies, right shoulder] Onset: 4 Chronic Malaise and fatigue (20 sources) Fatigue; Translations: [Other fatigue] 09-04-2019 Episodic Other aftercare (20 sources) Long-term current use of anticoagulant; Translations: [FCI (current) use of anticoagulants] 11-26-2018 Episodic Other connective tissue disease (20 sources) History of operative procedure on shoulder; Translations: [Presence of unspecified artificial shoulder joint] 06-24-2024 Chronic Other connective tissue disease (1 source) Presence of right artificial shoulder joint; Translations: [Presence of right artificial shoulder joint] Onset: 5 Chronic Other connective tissue disease (1 source) Presence of unspecified artificial shoulder joint; Translations: [Presence of unspecified artificial shoulder joint] Onset: 5 Chronic Other lower respiratory disease (20 sources) Dyspnea; Translations: [Dyspnea, unspecified] 09-04-2019 Episodic Other lower respiratory disease (6 sources) Dyspnea, unspecified; Translations: [Other respiratory abnormalities] Onset: 5 11-01-2022 Episodic Other lower respiratory disease (12 sources) Dyspnea on exertion; Translations: [Shortness of breath] 04-09-2024 Episodic Comment on above: SLIGHTLY WITH 2 FLIG HTS OF STAIRS Other screening for suspected conditions (not mental disorders or infectious disease) (20 sources) Encounter for screening mammogram for malignant neoplasm of breast; Translations: [Raised cardiac enzyme or marker] Onset: 8 06-21-2024 Episodic Other upper respiratory disease (11 sources) Bleeding from nose; Translations: [Epistaxis] 03-22-2024 Episodic Lara-; endo-; and myocarditis; cardiomyopathy (except that caused by tuberculosis or sexually transmitted disease) (20 sources) Hypertrophic cardiomyopathy; Translations: [Other hypertrophic cardiomyopathy] Onset: 5 Chronic Pulmonary heart disease (20 sources) Pulmonary arterial hypertension; Translations: [Secondary pulmonary arterial hypertension] Onset: 5 11-26-2018 Chronic Residual codes; unclassified (1 source) Pain, unspecified; Translations: [Pain, unspecified] Onset: 8 Septicemia (except in labor) (20 sources) Sepsis; Translations: [Sepsis, unspecified organism] Onset: 5 07-03-2024 Episodic Sprains and strains (20 sources) Sprain of ankle; Translations: [Sprain of unspecified ligament of left ankle, initial encounter] 04-24-2022 Episodic Thyroid disorders (1 source) Hypothyroidism, unspecified; Translations: [Hypothyroidism, unspecified] Onset: 5 Chronic Unclassified (1 source) Longstanding persistent atrial fibrillation; Translations: [Longstanding persistent atrial fibrillation] Onset: 5 Past or Other Problems Problem Classification Problem Date Documented Da te Episodic/Chronic E Codes: Adverse effects of medical drugs (1 source) Adverse effect of anticoagulants, initial encounter; Translations: [Adverse effect of anticoagulants, initial encounter] Onset: 07-05-2024 Episodic Other aftercare (1 source) lobsterman (current) use of anticoagulants; Translations: [FCI (current) use of anticoagulants] Onset: 05-15-2024 Episodic Other connective tissue disease (1 source) Cramp and spasm; Translations: [Cramp and spasm] Onset: 09-29-2017 Episodic Other non-traumatic joint disorders (1 source) Pain in right shoulder; Translations: [Pain in right shoulder] Onset: 06-18-2024 Episodic Other upper respiratory disease (1 source) Epistaxis; Translations: [Epistaxis] Onset: 04-04-2024 Episodic Residual codes; unclassified (1 source) Localized edema; Translations: [Localized edema] Onset: 07-17-2024 Episodic Results Test Name Value Interpretation Reference Range Facility Absolute lymphocyte countOrd ered By: Jules Torres on 12-02-2024 Lymphocytes Auto (Unsp spec) [#/Vol] 0.29 10*3/uL Low 0.83-4.51 [facility] Absolute neutrophil countOrd ered By: Jules Torres on 12-02-2024 Neutrophils (Bld) [#/Vol] 7.7 10*3/uL 2.0-7.7 [facility] Anion gap in Serum or Plasma Ordered By: Jules Torres on 12-02-2024 Anion gap [Moles/Vol] 15 mmol/L 5-15 [facility] Automated lymphocyte count a s percentage of total leukocytesOrdered By: Jules Torres on 12-02-2024 Lymphocytes/100 WBC Auto (Unsp spec) 3.4 % Low 19-41 [facility] BUN/creatinine ratioOrdered By: Jules Torres on 12-02-2024 Urea nitrogen/Creatinine [Mass ratio] 23.1 mg/mg High 10-20 [facility] Basophil percentageOrdered B y: Jules Torres on 12-02-2024 Basophils/100 WBC (Bld) 0.6 % 0-1 [facility] Bilirubin directOrdered By: Jules Torres on 12-02-2024 Bilirubin.direct [Mass/Vol] 0.30 mg/dL 0.00-0.30 [facility] Bilirubin, totalOrdered By: Jules Torres on 12-02-2024 Bilirubin [Mass/Vol] 0.55 mg/dL 0.00-1.30 [facility] Carbon dioxide, total [Moles /volume] in Central venous bloodOrdered By: Jules Torres on 12-02-2024 CO2 [Moles/Vol] 23.8 mmol/L 21.0-32.0 [facility] Chloride assayOrdered By: Tank Torres on 12-02-2024 Chloride [Moles/Vol] 102 mmol/L 98-108 [facility] Eosinophil percentageOrdered By: Jules Torres on 12-02-2024 Eosinophils/100 WBC (Bld) 0.6 % 0-5 [facility] Erythrocyte distribution wid th ratioOrdered By: Jules Torres on 12-02-2024 Erythrocyte distribution width (RBC) [Ratio] 16.6 % High 11.6-14.6 [facility] Erythrocyte distribution wid th standard deviationOrdered By: Jules Milan on 12-02-2024 Erythrocyte distribution width (RBC) [Ratio] 54.7 fl High 35.1-43.9 [facility] Glomerular filtration rate ( GFR) estimation/1.73 sq m using serum, plasma, or whole bOrdered By: Jules Torres on 12-02-2024 GFR/1.73 sq M.predicted among non-blacks MDRD (S/P/Bld) [Vol rate/Area] 12 mL/min/{1.73_m2} Low >60 [facility] Comment on above: mL/min/1.73m2 CKD-EP I Creatinine Equation (2020) Hematocrit Auto (Bld) [Volum e fraction]Ordered By: Jules Torres on 12-02-2024 Hematocrit (Bld) [Volume fraction] 33.5 % Low 37-47 [facility] Hemoglobin measurementOrdere d By: Jules Torres on 12-02-2024 Hemoglobin (Bld) [Mass/Vol] 9.6 g/dL Low 12.0-15.0 [facility] [facility] Immature granulocytes/100 WB C Auto (Bld)Ordered By: Jules Trores on 12-02-2024 Immature granulocytes/100 WBC (Bld) 0.500 % 0.0-0.9 [facility] Comment on above: IG% - Immature Granu locytes (promyelocytes, myelocytes and metamyelocytes) > 1% indicates that a LEFT SHIFT is Present. Laboratory - Chemistry and C hemistry - challengeOrdered By: Jules Torres on 12-02-2024 AST [Catalytic activity/Vol] 30 U/L <32 [facility] MCV (mean corpuscular volume ) determinationOrdered By: Jules Torres on 12-02-2024 MCV (RBC) [Entitic vol] 90.3 fL 81-99 [facility] Magnesium measurement (mass/ volume)Ordered By: Jules Torres on 12-02-2024 Magnesium (Unsp spec) [Mass/Vol] 2.8 mg/dL High 1.5-2.2 [facility] Mean corpuscular hemoglobin (MCH) determinationOrdered By: Jules Torres on 12-02-2024 MCH (RBC) [Entitic mass] 25.9 pg Low 27.0-32.0 [facility] Mean corpuscular hemoglobin concentration (MCHC) determinationOrdered By: Jules Torres on 12-02-2024 MCHC (RBC) [Mass/Vol] 28.7 g/dL Low 32-36 [facility] Mean platelet volume determi nationOrdered By: Jules Torres on 12-02-2024 Platelet mean volume (Bld) [Entitic vol] 13.0 fL High 6.2-12.0 [facility] Monocyte percentageOrdered B y: Jules Torres on 12-02-2024 Monocytes/100 WBC (Bld) 3.7 % 0-10 [facility] Natriuretic peptide.B prohor maria esther N-Terminal [Mass/volume] in Serum or PlasmaOrdered By: Jules Torres on 12-02-2024 Natriuretic peptide.B prohormone N-Terminal [Mass/Vol] 38496 pg/mL High <1800 [facility] Comment on above: Heart Failure Unlike ly: < 300 pg/mLHeart Failure Likely< 50 Years: > 450 pg/mL50-75 Years: > 900 pg/mL>75 Years: > 1800 pg/mL Neutrophil percentageOrdered By: Jules Torres on 12-02-2024 Neutrophils/100 WBC (Bld) 91.2 % High 47-70 [facility] Nucleated red blood cell per centageOrdered By: Jules Torres on 12-02-2024 Nucleated RBC/100 WBC (Bld) [Ratio] 0 % 0-5 [facility] Platelet countOrdered By: Tank Torres on 12-02-2024 Platelets (Bld) [#/Vol] 155 10*3/uL 150-450 [facility] Potassium measurement (mass/ volume)Ordered By: Jules Torres on 12-02-2024 Potassium (Unsp spec) [Mass/Vol] 4.3 mmol/L 3.3-5.1 [facility] RBC Auto (Bld) [#/Vol]Ordere d By: Jules Torres on 12-02-2024 RBC (Bld) [#/Vol] 3.71 10*6/uL Low 4.2-5.4 [facility] Serum creatinine measurement (mass/volume)Ordered By: Jules Torres on 12-02-2024 Creatinine [Mass/Vol] 3.75 mg/dL High 0.70-1.20 [facility] Serum globulin measurementOr dered By: Jules Torres on 12-02-2024 Globulin (S) [Mass/Vol] 2.1 g/dL Low 2.2-4.2 [facility] Serum glucose measurement (m ass/volume)Ordered By: Jules Torres on 12-02-2024 Glucose [Mass/Vol] 120 mg/dL High 70-99 [facility] Serum or plasma alanine alvarado otransferase (ALT) measurementOrdered By: Jules Torres on 12-02-2024 ALT [Catalytic activity/Vol] 19 U/L <35 [facility] Serum or plasma albumin jing urement (mass/volume)Ordered By: Jules Milan on 12-02-2024 Albumin [Mass/Vol] 3.9 g/dL 3.4-4.8 [facility] Serum or plasma alkaline jose elias sphatase measurementOrdered By: Jules Torres on 12-02-2024 ALP [Catalytic activity/Vol] 74 U/L 35-104 [facility] Serum or plasma calcium jing urement (mass/volume)Ordered By: Jules Milan on 12-02-2024 Calcium [Mass/Vol] 9.6 mg/dL 7.6-11.0 [facility] Serum or plasma urea nitroge n measurement (mass/volume)Ordered By: Jules Torres on 12-02-2024 Urea nitrogen [Mass/Vol] 87 mg/dL High 4-19 [facility] Sodium levelOrdered By: Andres Torres on 12-02-2024 Sodium [Moles/Vol] 140 mmol/L 133-145 [facility] Stool gastrointestinal hemog lobin detection by immunologic methodOrdered By: Jules Torres on 12-02-2024 Lower GI hemoglobin IA Ql (Stl) Positive Abnormal [facility] Total proteinOrdered By: Hardeep Torres on 12-02-2024 Protein [Mass/Vol] 6.1 g/dL 5.9-8.4 [facility] Troponin T.cardiac [Mass/vol ume] in Serum or Plasma by High sensitivity methodOrdered By: Jules Torres on 12-02-2024 Troponin T.cardiac High sensitivity method [Mass/Vol] 137 ng/L High <14 [facility] Comment on above: Critical Result(s) C alled at: 2154 by: NASRIN SHEIKH TO DAPHNEY MARTINEZ. Results read back by same. Troponin T.cardiac High sensitivity method [Mass/Vol] 166 ng/L High <14 [facility] Comment on above: Critical Result(s) C alled at: 2005 by: PHI PACHECO TO ADELE RICHMOND Results read back by same. White blood cell (WBC) count Ordered By: Jules Torres on 12-02-2024 WBC (Bld) [#/Vol] 8.5 10*3/uL 4.4-11.0 [facility] Cardiology Visit Reporton Cardiology Visit Report Normal [facility] Gastroenterology Visit Repor ton 10-08-2024 Gastroenterology Visit Report Normal [facility] Anion gap in Serum or Plasma Ordered By: León Erickson on 2024 Anion gap [Moles/Vol] 13 mmol/L - [facility] BUN/creatinine ratioOrdered By: León Erickson on 2024 Urea nitrogen/Creatinine [Mass ratio] 30.9 mg/mg High 10-20 [facility] Basic Metabolic Profile (BMP )on 2024 BUN/CRE 30.9 RATIO High 1020 [facility] Comment on above: Performed By: #### L 500.2500 ####[facility] [address] [place], [address] Calcium [Mass/Vol] 9.3 mg/dL Normal 7.6-11.0 [facility] Comment on above: Performed By: #### L 500.2500 ####[facility] [address] [place], [address] Chloride [Moles/Vol] 104 mmol/L Normal 98-108 [facility] Comment on above: Performed By: #### L 500.2500 ####[facility] [address] [place], [address] CO2 [Moles/Vol] 19.1 mmol/L Low 21.0-32.0 [facility] Comment on above: Performed By: #### L 500.2500 ####[facility] [address] [place], [address] Creatinine [Mass/Vol] 2.92 mg/dL High 0.70-1.20 [facility] Comment on above: Performed By: #### L 500.2500 ####[facility] [address] [place], [address] GAP 13 Normal 5-15 [facility] Comment on above: Performed By: #### L 500.2500 ####[facility] [address] [place], [address] GFR/1.73 sq M.predicted among non-blacks MDRD (S/P/Bld) [Vol rate/Area] 16 mL/min/{1.73_m2} Low >60 [facility] Comment on above: Result Comment: mL/m in/1.73m2 CKD-EPI Creatinine Equation (2020) Performed By: #### L 500.2500 ####[facility] [address] [place], [address] Glucose [Mass/Vol] 104 mg/dL High 70-99 [facility] Comment on above: Performed By: #### L 500.2500 ####[facility] [address] [place], [address] Potassium [Moles/Vol] 5.0 mmol/L Normal 3.3-5.1 [facility] Comment on above: Performed By: #### L 500.2500 ####[facility] [address] [place], [address] Sodium [Moles/Vol] 136 mmol/L Normal 133-145 [facility] Comment on above: Performed By: #### L 500.2500 ####[facility] [address] [place], [place], [address] Urea nitrogen [Mass/Vol] 90 mg/dL High -19 [facility] Comment on above: Performed By: #### L 500.2500 ####[facility] [address] [place], [place], [address] Carbon dioxide, total [Moles /volume] in Central venous bloodOrdered By: León Erickson on 2024 CO2 [Moles/Vol] 19.1 mmol/L Low 21.0-32.0 [facility] Chloride assayOrdered By: Rafia Erickson on 2024 Chloride [Moles/Vol] 104 mmol/L 98-108 [facility] Glomerular filtration rate ( GFR) estimation/1.73 sq m using serum, plasma, or whole bOrdered By: León Erickson on 2024 GFR/1.73 sq M.predicted among non-blacks MDRD (S/P/Bld) [Vol rate/Area] 16 mL/min/{1.73_m2} Low >60 [facility] Comment on above: mL/min/1.73m2 CKD-EP I Creatinine Equation (2020) Potassium measurement (mass/ volume)Ordered By: León Erickson on 2024 Potassium (Unsp spec) [Mass/Vol] 5.0 mmol/L 3.3-5.1 [facility] Serum creatinine measurement (mass/volume)Ordered By: León Erickson on 2024 Creatinine [Mass/Vol] 2.92 mg/dL High 0.70-1.20 [facility] Serum glucose measurement (m ass/volume)Ordered By: León Erickson on 2024 Glucose [Mass/Vol] 104 mg/dL High 70-99 [facility] Serum or plasma calcium jing urement (mass/volume)Ordered By: León Erickson on 2024 Calcium [Mass/Vol] 9.3 mg/dL 7.6-11.0 [facility] Serum or plasma urea nitroge n measurement (mass/volume)Ordered By: León Erickson on 2024 Urea nitrogen [Mass/Vol] 90 mg/dL High 4-19 [facility] Sodium levelOrdered By: León Erickson on 2024 Sodium [Moles/Vol] 136 mmol/L 133-145 [facility] Absolute lymphocyte countOrd ered By: León Erickson on 09-25-2024 Lymphocytes Auto (Unsp spec) [#/Vol] 0.34 10*3/uL Low 0.83-4.51 [facility] Absolute neutrophil countOrd ered By: León Erickson on 09-25-2024 Neutrophils (Bld) [#/Vol] 6.3 10*3/uL 2.0-7.7 [facility] Anion gap in Serum or Plasma Ordered By: León Erickson on 09-25-2024 Anion gap [Moles/Vol] 12 mmol/L 5-15 [facility] Automated lymphocyte count a s percentage of total leukocytesOrdered By: León Erickson on 09-25-2024 Lymphocytes/100 WBC Auto (Unsp spec) 4.6 % Low 19-41 [facility] BUN/creatinine ratioOrdered By: León Erickson on 09-25-2024 Urea nitrogen/Creatinine [Mass ratio] 30.9 mg/mg High 03-03 [facility] Basic Metabolic Profile (BMP )on 09-25-2024 BUN/CRE 30.9 RATIO High 03-03 [facility] Comment on above: Performed By: #### L 500.2500, L100.0100, L503.7505 ####[facility] [address] [place], [address] Calcium [Mass/Vol] 9.6 mg/dL Normal 7.6-11.0 [facility] Comment on above: Performed By: #### L 500.2500, L100.0100, L503.7505 ####[facility] [address] [place], [address] Chloride [Moles/Vol] 101 mmol/L Normal 98-108 [facility] Comment on above: Performed By: #### L 500.2500, L100.0100, L503.7505 ####[facility] [address] [place], [address] CO2 [Moles/Vol] 19.3 mmol/L Low 21.0-32.0 [facility] Comment on above: Performed By: #### L 500.2500, L100.0100, L503.7505 ####[facility] [address] [place], [address] Creatinine [Mass/Vol] 3.07 mg/dL High 0.70-1.20 [facility] Comment on above: Performed By: #### L 500.2500, L100.0100, L503.7505 ####[facility] [address] [place], [address] GAP 12 Normal 5-15 [facility] Comment on above: Performed By: #### L 500.2500, L100.0100, L503.7505 ####[facility] [address] [place], [address] GFR/1.73 sq M.predicted among non-blacks MDRD (S/P/Bld) [Vol rate/Area] 15 mL/min/{1.73_m2} Low >60 [facility] Comment on above: Result Comment: mL/m in/1.73m2 CKD-EPI Creatinine Equation (2020) Performed By: #### L 500.2500, L100.0100, L503.7505 ####[facility] [address] [place], [address] Glucose [Mass/Vol] 102 mg/dL High 70-99 [facility] Comment on above: Performed By: #### L 500.2500, L100.0100, L503.7505 ####[facility] [address] [place], [address] Potassium [Moles/Vol] 5.3 mmol/L High 3.3-5.1 [facility] Comment on above: Performed By: #### L 500.2500, L100.0100, L503.7505 ####[facility] [address] [place], [address] Sodium [Moles/Vol] 132 mmol/L Low 133-145 [facility] Comment on above: Performed By: #### L 500.2500, L100.0100, L503.7505 ####[facility] [address] [place], [address] Urea nitrogen [Mass/Vol] 95 mg/dL High 4-19 [facility] Comment on above: Performed By: #### L 500.2500, L100.0100, L503.7505 ####[facility] [address] [place], [address] Basophil percentageOrdered B y: León Erickson on 09-25-2024 Basophils/100 WBC (Bld) 0.8 % 0-1 [facility] CBC W/Diff, Automatedon 09-12 Absolute Lymph 0.34 X10 3/uL Low 0.83-4.51 [facility] Comment on above: Performed By: #### L 500.2500, L100.0100, L503.7505 ####[facility] [address] [place], [address] Absolute Neut 6.3 X10 3/uL Normal 2.0-7.7 [facility] Comment on above: Performed By: #### L 500.2500, L100.0100, L503.7505 ####[facility] [address] [place], [address] Basophils/100 WBC (Bld) 0.8 % Normal 0-1 [facility] Comment on above: Performed By: #### L 500.2500, L100.0100, L503.7505 ####[facility] [address] [place], [address] Eosinophils/100 WBC (Bld) 0.8 % Normal 0-5 [facility] Comment on above: Performed By: #### L 500.2500, L100.0100, L503.7505 ####[facility] [address] [place], [address] Erythrocyte distribution width (RBC) [Ratio] 17.1 % High 11.6-14.6 [facility] Comment on above: Performed By: #### L 500.2500, L100.0100, L503.7505 ####[facility] [address] [place], [address] Hematocrit (Bld) [Volume fraction] 29.0 % Low 37-47 [facility] Comment on above: Performed By: #### L 500.2500, L100.0100, L503.7505 ####[facility] [address] [place], [address] Hemoglobin (Bld) [Mass/Vol] 8.6 g/dL Low 12.0-15.0 [facility] Comment on above: Performed By: #### L 500.2500, L100.0100, L503.7505 ####[facility] [address] [place], [address] IG% 0.400 Normal 0.0-0.9 [facility] Comment on above: Result Comment: IG% - Immature Granulocytes (promyelocytes, myelocytes andmetamyelocytes) > 1% indicates that a LEFT SHIFT is Present. Performed By: #### L 500.2500, L100.0100, L503.7505 ####[facility] [address] [place], [address] Lymphocytes/100 WBC (Bld) 4.6 % Low 19-41 [facility] Comment on above: Performed By: #### L 500.2500, L100.0100, L503.7505 ####[facility] [address] [place], [address] MCH (RBC) [Entitic mass] 27.0 pg Normal 27.0-32.0 [facility] Comment on above: Performed By: #### L 500.2500, L100.0100, L503.7505 ####[facility] [address] [place], [address] MCHC (RBC) [Mass/Vol] 29.7 g/dL Low 32-36 [facility] Comment on above: Performed By: #### L 500.2500, L100.0100, L503.7505 ####[facility] [address] [place], [address] MCV (RBC) [Entitic vol] 90.9 fL Normal 81-99 [facility] Comment on above: Performed By: #### L 500.2500, L100.0100, L503.7505 ####[facility] [address] [place], [address] Monocytes/100 WBC (Bld) 8.6 % Normal 0-10 [facility] Comment on above: Performed By: #### L 500.2500, L100.0100, L503.7505 ####[facility] [address] [place], [address] Neutrophils/100 WBC (Bld) 84.8 % High 47-70 [facility] Comment on above: Performed By: #### L 500.2500, L100.0100, L503.7505 ####[facility] [address] [place], [address] Nucleated RBC (Bld) [#/Vol] 0 10*3/uL Normal 0-5 [facility] Comment on above: Performed By: #### L 500.2500, L100.0100, L503.7505 ####[facility] [address] [place], [address] Platelet mean volume (Bld) [Entitic vol] 10.9 fL Normal 6.2-12.0 [facility] Comment on above: Performed By: #### L 500.2500, L100.0100, L503.7505 ####[facility] [address] [place], [address] Platelets (Bld) [#/Vol] 303 10*3/uL Normal 150-450 [facility] Comment on above: Performed By: #### L 500.2500, L100.0100, L503.7505 ####[facility] [address] [place], [address] RBC (Bld) [#/Vol] 3.19 10*6/uL Low 4.2-5.4 [facility] Comment on above: Performed By: #### L 500.2500, L100.0100, L503.7505 ####[facility] [address] [place], [address] RDW SD 56.5 fl High 35.1-43.9 [facility] Comment on above: Performed By: #### L 500.2500, L100.0100, L503.7505 ####[facility] [address] [place], [address] WBC (Bld) [#/Vol] 7.5 10*3/uL Normal 4.4-11.0 [facility] Comment on above: Performed By: #### L 500.2500, L100.0100, L503.7505 ####[facility] [address] [place], [address] Carbon dioxide, total [Moles /volume] in Central venous bloodOrdered By: León Erickson on 09-25-2024 CO2 [Moles/Vol] 19.3 mmol/L Low 21.0-32.0 [facility] Cardiology Visit Reporton Cardiology Visit Report Normal [facility] Chest PA and Lateralon 09-25 Chest PA and Lateral Normal [facility] Chloride assayOrdered By: Rafia Erickson on 09-25-2024 Chloride [Moles/Vol] 101 mmol/L 98-108 [facility] Eosinophil percentageOrdered By: León Erickson on 09-25-2024 Eosinophils/100 WBC (Bld) 0.8 % 0-5 [facility] Erythrocyte distribution wid th ratioOrdered By: León Erickson on 09-25-2024 Erythrocyte distribution width (RBC) [Ratio] 17.1 % High 11.6-14.6 [facility] Erythrocyte distribution wid th standard deviationOrdered By: León Erickson on 09-25-2024 Erythrocyte distribution width (RBC) [Ratio] 56.5 fl High 35.1-43.9 [facility] Glomerular filtration rate ( GFR) estimation/1.73 sq m using serum, plasma, or whole bOrdered By: León Erickson on 09-25-2024 GFR/1.73 sq M.predicted among non-blacks MDRD (S/P/Bld) [Vol rate/Area] 15 mL/min/{1.73_m2} Low >60 [facility] Comment on above: mL/min/1.73m2 CKD-EP I Creatinine Equation (2020) Hematocrit Auto (Bld) [Volum e fraction]Ordered By: León Erickson on 09-25-2024 Hematocrit (Bld) [Volume fraction] 29.0 % Low 37-47 [facility] Hemoglobin measurementOrdere d By: León Erickson on 09-25-2024 Hemoglobin (Bld) [Mass/Vol] 8.6 g/dL Low 12.0-15.0 [facility] Immature granulocytes/100 WB C Auto (Bld)Ordered By: León Erickson on 09-25-2024 Immature granulocytes/100 WBC (Bld) 0.400 % 0.0-0.9 [facility] Comment on above: IG% - Immature Granu locytes (promyelocytes, myelocytes and metamyelocytes) > 1% indicates that a LEFT SHIFT is Present. L503.7505on 09-25-2024 Natriuretic peptide B (Bld) [Mass/Vol] 78749 pg/mL High <=1800 [facility] Comment on above: Result Comment: Hear t Failure Unlikely: < 300 pg/mLHeart Failure Likely< 50 Years: > 450 pg/mL50-75 Years: > 900 pg/mL>75 Years: > 1800 pg/mL Performed By: #### L 500.2500, L100.0100, L503.7505 ####[facility] [address] [place], [address] MCV (mean corpuscular volume ) determinationOrdered By: León Erickson on 09-25-2024 MCV (RBC) [Entitic vol] 90.9 fL 81-99 [facility] Mean corpuscular hemoglobin (MCH) determinationOrdered By: León Erickson on 09-25-2024 MCH (RBC) [Entitic mass] 27.0 pg 27.0-32.0 [facility] Mean corpuscular hemoglobin concentration (MCHC) determinationOrdered By: León Erickson on 09-25-2024 MCHC (RBC) [Mass/Vol] 29.7 g/dL Low 32-36 [facility] Mean platelet volume determi nationOrdered By: León Erickson on 09-25-2024 Platelet mean volume (Bld) [Entitic vol] 10.9 fL 6.2-12.0 [facility] Monocyte percentageOrdered B y: León Erickson on 09-25-2024 Monocytes/100 WBC (Bld) 8.6 % 0-10 [facility] Natriuretic peptide.B prohor maria esther N-Terminal [Mass/volume] in Serum or PlasmaOrdered By: León Erickson on 09-25-2024 Natriuretic peptide.B prohormone N-Terminal [Mass/Vol] 51653 pg/mL High <1800 [facility] Comment on above: Heart Failure Unlike ly: < 300 pg/mLHeart Failure Likely< 50 Years: > 450 pg/mL50-75 Years: > 900 pg/mL>75 Years: > 1800 pg/mL Neutrophil percentageOrdered By: León Erickson on 09-25-2024 Neutrophils/100 WBC (Bld) 84.8 % High 47-70 [facility] Nucleated red blood cell per centageOrdered By: León Erickson on 09-25-2024 Nucleated RBC/100 WBC (Bld) [Ratio] 0 % 0-5 [facility] Platelet countOrdered By: Rafia Erickson on 09-25-2024 Platelets (Bld) [#/Vol] 303 10*3/uL 150-450 [facility] Potassium measurement (mass/ volume)Ordered By: León Erickson on 09-25-2024 Potassium (Unsp spec) [Mass/Vol] 5.3 mmol/L High 3.3-5.1 [facility] RBC Auto (Bld) [#/Vol]Ordere d By: León Erickson on 09-25-2024 RBC (Bld) [#/Vol] 3.19 10*6/uL Low 4.2-5.4 [facility] Serum creatinine measurement (mass/volume)Ordered By: León Erickson on 09-25-2024 Creatinine [Mass/Vol] 3.07 mg/dL High 0.70-1.20 [facility] Serum glucose measurement (m ass/volume)Ordered By: León Erickson on 09-25-2024 Glucose [Mass/Vol] 102 mg/dL High 70-99 [facility] Serum or plasma calcium jing urement (mass/volume)Ordered By: León Erickson on 09-25-2024 Calcium [Mass/Vol] 9.6 mg/dL 7.6-11.0 [facility] Serum or plasma urea nitroge n measurement (mass/volume)Ordered By: León Erickson on 09-25-2024 Urea nitrogen [Mass/Vol] 95 mg/dL High 4-19 [facility] Sodium levelOrdered By: León Erickson on 09-25-2024 Sodium [Moles/Vol] 132 mmol/L Low 133-145 [facility] White blood cell (WBC) count Ordered By: León Erickson on 09-25-2024 WBC (Bld) [#/Vol] 7.5 10*3/uL 4.4-11.0 [facility] Absolute lymphocyte countOrd ered By: Humaira Churchill on 08-30-2024 Lymphocytes Auto (Unsp spec) [#/Vol] 0.45 10*3/uL Low 0.83-4.51 [facility] Absolute neutrophil countOrd ered By: Humaira Churchill on 08-30-2024 Neutrophils (Bld) [#/Vol] 7.3 10*3/uL 2.0-7.7 [facility] Anion gap in Serum or Plasma Ordered By: Humaira Churchill on 08-30-2024 Anion gap [Moles/Vol] 13 mmol/L 5-15 [facility] Automated lymphocyte count a s percentage of total leukocytesOrdered By: Humaira Churchill on 08-30-2024 Lymphocytes/100 WBC Auto (Unsp spec) 5.3 % Low 19-41 [facility] BUN/creatinine ratioOrdered By: Humaira Churchill on 08-30-2024 Urea nitrogen/Creatinine [Mass ratio] 27.1 mg/mg High 10-20 [facility] Basophil percentageOrdered B y: Humaira Churchill on 08-30-2024 Basophils/100 WBC (Bld) 0.9 % 0-1 [facility] Bilirubin, totalOrdered By: Humaira Churchill on 08-30-2024 Bilirubin [Mass/Vol] 0.48 mg/dL 0.00-1.30 [facility] CBC W/Diff, Automatedon 08-13 Absolute Lymph 0.45 X10 3/uL Low 0.83-4.51 [facility] Comment on above: Performed By: #### L 100.0100, L501.9520, L500.4050 ####[facility] [address] [place], [address] Absolute Neut 7.3 X10 3/uL Normal 2.0-7.7 [facility] Comment on above: Performed By: #### L 100.0100, L501.9520, L500.4050 ####[facility] [address] [place], [address] Basophils/100 WBC (Bld) 0.9 % Normal 0-1 [facility] Comment on above: Performed By: #### L 100.0100, L501.9520, L500.4050 ####[facility] [address] [place], [address] Eosinophils/100 WBC (Bld) 0.8 % Normal 0-5 [facility] Comment on above: Performed By: #### L 100.0100, L501.9520, L500.4050 ####[facility] [address] [place], [address] Erythrocyte distribution width (RBC) [Ratio] 15.7 % High 11.6-14.6 [facility] Comment on above: Performed By: #### L 100.0100, L501.9520, L500.4050 ####[facility] [address] [place], [address] Hematocrit (Bld) [Volume fraction] 29.5 % Low 37-47 [facility] Comment on above: Performed By: #### L 100.0100, L501.9520, L500.4050 ####[facility] [address] [place], [address] Hemoglobin (Bld) [Mass/Vol] 8.9 g/dL Low 12.0-15.0 [facility] Comment on above: Performed By: #### L 100.0100, L501.9520, L500.4050 ####[facility] [address] [place], [address] IG% 0.400 Normal 0.0-0.9 [facility] Comment on above: Result Comment: IG% - Immature Granulocytes (promyelocytes, myelocytes andmetamyelocytes) > 1% indicates that a LEFT SHIFT is Present. Performed By: #### L 100.0100, L501.9520, L500.4050 ####[facility] [address] [place], [address] Lymphocytes/100 WBC (Bld) 5.3 % Low 19-41 [facility] Comment on above: Performed By: #### L 100.0100, L501.9520, L500.4050 ####[facility] [address] [place], [address] MCH (RBC) [Entitic mass] 27.2 pg Normal 27.0-32.0 [facility] Comment on above: Performed By: #### L 100.0100, L501.9520, L500.4050 ####[facility] [address] [place], [address] MCHC (RBC) [Mass/Vol] 30.2 g/dL Low 32-36 [facility] Comment on above: Performed By: #### L 100.0100, L501.9520, L500.4050 ####[facility] [address] [place], [address] MCV (RBC) [Entitic vol] 90.2 fL Normal 81-99 [facility] Comment on above: Performed By: #### L 100.0100, L501.9520, L500.4050 ####[facility] [address] [place], [address] Monocytes/100 WBC (Bld) 7.7 % Normal 0-10 [facility] Comment on above: Performed By: #### L 100.0100, L501.9520, L500.4050 ####[facility] [address] [place], [address] Neutrophils/100 WBC (Bld) 84.9 % High 47-70 [facility] Comment on above: Performed By: #### L 100.0100, L501.9520, L500.4050 ####[facility] [address] [place], [address] Nucleated RBC (Bld) [#/Vol] 0 10*3/uL Normal 0-5 [facility] Comment on above: Performed By: #### L 100.0100, L501.9520, L500.4050 ####[facility] [address] [place], [address] Platelet mean volume (Bld) [Entitic vol] 10.8 fL Normal 6.2-12.0 [facility] Comment on above: Performed By: #### L 100.0100, L501.9520, L500.4050 ####[facility] [address] [place], [address] Platelets (Bld) [#/Vol] 342 10*3/uL Normal 150-450 [facility] Comment on above: Performed By: #### L 100.0100, L501.9520, L500.4050 ####[facility] [address] [place], [address] RBC (Bld) [#/Vol] 3.27 10*6/uL Low 4.2-5.4 [facility] Comment on above: Performed By: #### L 100.0100, L501.9520, L500.4050 ####[facility] [address] [place], [address] RDW SD 52.0 fl High 35.1-43.9 [facility] Comment on above: Performed By: #### L 100.0100, L501.9520, L500.4050 ####[facility] [address] [place], [address] WBC (Bld) [#/Vol] 8.6 10*3/uL Normal 4.4-11.0 [facility] Comment on above: Performed By: #### L 100.0100, L501.9520, L500.4050 ####[facility] [address] [place], [address] Carbon dioxide, total [Moles /volume] in Central venous bloodOrdered By: Humaira Churchill on 08-30-2024 CO2 [Moles/Vol] 22.3 mmol/L 21.0-32.0 [facility] Chloride assayOrdered By: Alexander Churchill on 08-30-2024 Chloride [Moles/Vol] 102 mmol/L 98-108 [facility] Comprehensive Metabolic Prof ilon 08-30-2024 Albumin [Mass/Vol] 3.7 g/dL Normal 3.4-4.8 [facility] Comment on above: Performed By: #### L 100.0100, L501.9520, L500.4050 ####[facility] [address] [place], [address] Albumin/Globulin [Mass ratio] 1.6 {ratio} Normal 0.9-2.4 [facility] Comment on above: Performed By: #### L 100.0100, L501.9520, L500.4050 ####[facility] [address] [place], [address] ALK PHOS 74 U/L Normal 35-104 [facility] Comment on above: Performed By: #### L 100.0100, L501.9520, L500.4050 ####[facility] [address] [place], [address] ALT [Catalytic activity/Vol] 17 U/L Normal <=34 [facility] Comment on above: Performed By: #### L 100.0100, L501.9520, L500.4050 ####[facility] [address] [place], [address] AST [Catalytic activity/Vol] 26 U/L Normal <=31 [facility] Comment on above: Performed By: #### L 100.0100, L501.9520, L500.4050 ####[facility] [address] [place], [address] Bilirubin [Mass/Vol] 0.48 mg/dL Normal 0.00-1.30 [facility] Comment on above: Performed By: #### L 100.0100, L501.9520, L500.4050 ####[facility] [address] [place], [address] BUN/CRE 27.1 RATIO High 10-20 [facility] Comment on above: Performed By: #### L 100.0100, L501.9520, L500.4050 ####[facility] [address] [place], [address] Calcium [Mass/Vol] 9.4 mg/dL Normal 7.6-11.0 [facility] Comment on above: Performed By: #### L 100.0100, L501.9520, L500.4050 ####[facility] [address] [place], [address] Chloride [Moles/Vol] 102 mmol/L Normal 98-108 [facility] Comment on above: Performed By: #### L 100.0100, L501.9520, L500.4050 ####[facility] [address] [place], [address] CO2 [Moles/Vol] 22.3 mmol/L Normal 21.0-32.0 [facility] Comment on above: Performed By: #### L 100.0100, L501.9520, L500.4050 ####[facility] [address] [place], [address] Creatinine [Mass/Vol] 2.41 mg/dL High 0.70-1.20 [facility] Comment on above: Performed By: #### L 100.0100, L501.9520, L500.4050 ####[facility] [address] [place], [address] GAP 13 Normal 5-15 [facility] Comment on above: Performed By: #### L 100.0100, L501.9520, L500.4050 ####[facility] [address] [place], [address] GFR/1.73 sq M.predicted among non-blacks MDRD (S/P/Bld) [Vol rate/Area] 20 mL/min/{1.73_m2} Low >60 [facility] Comment on above: Result Comment: mL/m in/1.73m2 CKD-EPI Creatinine Equation (2020) Performed By: #### L 100.0100, L501.9520, L500.4050 ####[facility] [address] [place], [address] Globulin (S) [Mass/Vol] 2.3 g/dL Normal 2.2-4.2 [facility] Comment on above: Performed By: #### L 100.0100, L501.9520, L500.4050 ####[facility] [address] [place], [address] Glucose [Mass/Vol] 106 mg/dL High 70-99 [facility] Comment on above: Performed By: #### L 100.0100, L501.9520, L500.4050 ####[facility] [address] [place], [address] Potassium [Moles/Vol] 4.8 mmol/L Normal 3.3-5.1 [facility] Comment on above: Performed By: #### L 100.0100, L501.9520, L500.4050 ####[facility] [address] [place], [address] Sodium [Moles/Vol] 137 mmol/L Normal 133-145 [facility] Comment on above: Performed By: #### L 100.0100, L501.9520, L500.4050 ####[facility] [address] [place], [address] T PROT 6.0 g/dL Normal 5.9-8.4 [facility] Comment on above: Performed By: #### L 100.0100, L501.9520, L500.4050 ####[facility] [address] [place], [address] Urea nitrogen [Mass/Vol] 65 mg/dL High 4-19 [facility] Comment on above: Performed By: #### L 100.0100, L501.9520, L500.4050 ####[facility] [address] [place], [address] Eosinophil percentageOrdered By: Humaira Churchill on 08-30-2024 Eosinophils/100 WBC (Bld) 0.8 % 0-5 [facility] Erythrocyte distribution wid th ratioOrdered By: Humaira Churchill on 08-30-2024 Erythrocyte distribution width (RBC) [Ratio] 15.7 % High 11.6-14.6 [facility] Erythrocyte distribution wid th standard deviationOrdered By: Humaira Churchill on 08-30-2024 Erythrocyte distribution width (RBC) [Ratio] 52.0 fl High 35.1-43.9 [facility] Glomerular filtration rate ( GFR) estimation/1.73 sq m using serum, plasma, or whole bOrdered By: Humaira Churchill on 08-30-2024 GFR/1.73 sq M.predicted among non-blacks MDRD (S/P/Bld) [Vol rate/Area] 20 mL/min/{1.73_m2} Low >60 [facility] Comment on above: mL/min/1.73m2 CKD-EP I Creatinine Equation (2020) Hematocrit Auto (Bld) [Volum e fraction]Ordered By: Humaira Churchill on 08-30-2024 Hematocrit (Bld) [Volume fraction] 29.5 % Low 37-47 [facility] Hemoglobin measurementOrdere d By: Humaira Churchill on 08-30-2024 Hemoglobin (Bld) [Mass/Vol] 8.9 g/dL Low 12.0-15.0 [facility] Immature granulocytes/100 WB C Auto (Bld)Ordered By: Humaira Churchill on 08-30-2024 Immature granulocytes/100 WBC (Bld) 0.400 % 0.0-0.9 [facility] Comment on above: IG% - Immature Granu locytes (promyelocytes, myelocytes and metamyelocytes) > 1% indicates that a LEFT SHIFT is Present. Laboratory - Chemistry and C hemistry - challengeOrdered By: Humaira Churchill on 08-30-2024 AST [Catalytic activity/Vol] 26 U/L <32 [facility] MCV (mean corpuscular volume ) determinationOrdered By: Humaira Churchill on 08-30-2024 MCV (RBC) [Entitic vol] 90.2 fL 81-99 [facility] Mean corpuscular hemoglobin (MCH) determinationOrdered By: Humaira Churchill on 08-30-2024 MCH (RBC) [Entitic mass] 27.2 pg 27.0-32.0 [facility] Mean corpuscular hemoglobin concentration (MCHC) determinationOrdered By: Humaira Churchill on 08-30-2024 MCHC (RBC) [Mass/Vol] 30.2 g/dL Low 32-36 [facility] Mean platelet volume determi nationOrdered By: Humaira Churchill on 08-30-2024 Platelet mean volume (Bld) [Entitic vol] 10.8 fL 6.2-12.0 [facility] Monocyte percentageOrdered B y: Humaira Churchill on 08-30-2024 Monocytes/100 WBC (Bld) 7.7 % 0-10 [facility] Neutrophil percentageOrdered By: Humaira Churchill on 08-30-2024 Neutrophils/100 WBC (Bld) 84.9 % High 47-70 [facility] No Panel InformationOrdered By: Humaira Churchill on 08-30-2024 26 U/L <32 [facility] Nucleated red blood cell per centageOrdered By: Humaira Churchill on 08-30-2024 Nucleated RBC/100 WBC (Bld) [Ratio] 0 % 0-5 [facility] Platelet countOrdered By: Alexander Churchill on 08-30-2024 Platelets (Bld) [#/Vol] 342 10*3/uL 150-450 [facility] Potassium measurement (mass/ volume)Ordered By: Humaira Churchill on 08-30-2024 Potassium (Unsp spec) [Mass/Vol] 4.8 mmol/L 3.3-5.1 [facility] RBC Auto (Bld) [#/Vol]Ordere d By: Humaira Churchill on 08-30-2024 RBC (Bld) [#/Vol] 3.27 10*6/uL Low 4.2-5.4 [facility] Serum creatinine measurement (mass/volume)Ordered By: Humaira Churchill on 08-30-2024 Creatinine [Mass/Vol] 2.41 mg/dL High 0.70-1.20 [facility] Serum globulin measurementOr dered By: Humaira Churchill on 08-30-2024 Globulin (S) [Mass/Vol] 2.3 g/dL 2.2-4.2 [facility] Serum glucose measurement (m ass/volume)Ordered By: Humaira Churchill on 08-30-2024 Glucose [Mass/Vol] 106 mg/dL High 70-99 [facility] Serum or plasma alanine alvarado otransferase (ALT) measurementOrdered By: Humaira Churchill on 08-30-2024 ALT [Catalytic activity/Vol] 17 U/L <35 [facility] Serum or plasma albumin jing urement (mass/volume)Ordered By: Humaira Churchill on 08-30-2024 Albumin [Mass/Vol] 3.7 g/dL 3.4-4.8 [facility] Serum or plasma albumin/glob ulin mass ratioOrdered By: Humaira Churchill on 08-30-2024 Albumin/Globulin [Mass ratio] 1.6 {ratio} 0.9-2.4 [facility] Serum or plasma alkaline jose elias sphatase measurementOrdered By: Humaira Churchill on 08-30-2024 ALP [Catalytic activity/Vol] 74 U/L 35-104 [facility] Serum or plasma calcium jing urement (mass/volume)Ordered By: Humaira Churchill on 08-30-2024 Calcium [Mass/Vol] 9.4 mg/dL 7.6-11.0 [facility] Serum or plasma urea nitroge n measurement (mass/volume)Ordered By: Humaira Churchill on 08-30-2024 Urea nitrogen [Mass/Vol] 65 mg/dL High 4-19 [facility] Sodium levelOrdered By: Humaira Churchill on 08-30-2024 Sodium [Moles/Vol] 137 mmol/L 133-145 [facility] TSH DL <= 0.005 mIU/L QnOrde red By: Humaira Churchill on 08-30-2024 TSH Qn 1.540 uIU/mL 0.300-4.200 [facility] Thyroid Stim Hormone (TSH)on 08-30-2024 TSH 1.540 uIU/mL Normal 0.300-4.200 [facility] Comment on above: Performed By: #### L 100.0100, L501.9520, L500.4050 ####[facility] [address] [place], [address] Total proteinOrdered By: Humaira Churchill on 08-30-2024 Protein [Mass/Vol] 6.0 g/dL 5.9-8.4 [facility] White blood cell (WBC) count Ordered By: Humaira Churchill on 08-30-2024 WBC (Bld) [#/Vol] 8.6 10*3/uL 4.4-11.0 [facility] Anion gap [Moles/Vol]Ordered By: Humaira Churchill on 07-12-2024 Serum or plasma anion gap determination (moles/volume) 14 09-26 [facility] BUN/creatinine ratioOrdered By: Humaira Churchill on 07-12-2024 Urea nitrogen/Creatinine [Mass ratio] 17.3 mg/mg - [facility] BUN/creatinine ratio 17.3 RATIO - [facility] Basic Metabolic Profile (BMP )on 07-12-2024 Anion gap [Moles/Vol] 14 mmol/L Normal - [facility] Comment on above: Order Comment: Order Date: 07/08/24Order Info: 0667-1 - BMP Performed By: #### L 500.2500 ####[facility] [address] [place], [address] BUN/CRE 17.3 RATIO Normal - [facility] Comment on above: Order Comment: Order Date: 07/08/24Order Info: 0667-1 - BMP Performed By: #### L 500.2500 ####[facility] [address], [address] Calcium [Mass/Vol] 9.1 mg/dL Normal 7.6-11.0 [facility] Comment on above: Order Comment: Order Date: 07/08/24Order Info: 666-05 - BMP Performed By: #### L 500.2500 ####[facility] [address] [place], [address] Chloride [Moles/Vol] 98 mmol/L Normal 96-108 [facility] Comment on above: Order Comment: Order Date: 07/08/24Order Info: 666-05 - BMP Performed By: #### L 500.2500 ####[facility] [address] [place], [address] CO2 [Moles/Vol] 24.7 mmol/L Normal 22.0-29.0 [facility] Comment on above: Order Comment: Order Date: 07/08/24Order Info: 666-05 - BMP Performed By: #### L 500.2500 ####[facility] [address] [place], [address] Creatinine [Mass/Vol] 2.35 mg/dL High 0.70-1.20 [facility] Comment on above: Order Comment: Order Date: 07/08/24Order Info: 666-05 - BMP Performed By: #### L 500.2500 ####[facility] [address] [place], [address] GFR/1.73 sq M.predicted among non-blacks MDRD (S/P/Bld) [Vol rate/Area] 21 mL/min/{1.73_m2} Low >60 [facility] Comment on above: Order Comment: Order Date: 07/08/24Order Info: 06 - BMP Result Comment: mL/m in/1.73m2 CKD-EPI Creatinine Equation (2020) Performed By: #### L 500.2500 ####[facility] [address] [place], [address] Glucose [Mass/Vol] 94 mg/dL Normal 70-99 [facility] Comment on above: Order Comment: Order Date: 07/08/24Order Info: 666-05 - BMP Performed By: #### L 500.2500 ####[facility] [address] [place], [place], [phone] Potassium [Moles/Vol] 3.4 mmol/L Normal 3.3-5.1 [facility] Comment on above: Order Comment: Order Date: 07/08/24Order Info: 666-05 - BMP Performed By: #### L 500.2500 ####[facility] [address] [place], [address] Sodium [Moles/Vol] 136 mmol/L Normal 133-145 [facility] Comment on above: Order Comment: Order Date: 07/08/24Order Info: 666-05 - BMP Performed By: #### L 500.2500 ####[facility] [address] [place], [address] Urea nitrogen [Mass/Vol] 41 mg/dL High 4-19 [facility] Comment on above: Order Comment: Order Date: 07/08/24Order Info: 666-05 - BMP Performed By: #### L 500.2500 ####[facility] [address] [place], [address] Calcium [Mass/Vol]Ordered By : Humaira Churchill on 07-12-2024 Serum or plasma calcium measurement (mass/volume) 9.1 mg/dL 7.6-11.0 [facility] Carbon dioxide measurementOr dered By: Humaira Churchill on 07-12-2024 CO2 [Moles/Vol] 24.7 mmol/L 22.0-29.0 [facility] Carbon dioxide measurement 24.7 mmol/L 22.0-29.0 [facility] Cardiology Visit Reporton Cardiology Visit Report Normal [facility] Chloride measurementOrdered By: Humaira Churchill on 07-12-2024 Chloride [Moles/Vol] 98 mmol/L 96-108 [facility] Chloride measurement 98 mmol/L 96-108 [facility] Creatinine [Mass/Vol]Ordered By: Humaira Churchill on 07-12-2024 Serum creatinine measurement (mass/volume) 2.35 mg/dL High 0.70-1.20 [facility] GFR/1.73 sq M.predicted daniella g non-blacks MDRD (S/P/Bld) [Vol rate/Area]Ordered By: Humaira Churchill on 07-12-2024 Glomerular filtration rate (GFR) estimation/1.73 sq m using serum, plasma, or whole b 21 Low >60 [facility] Gastroenterology Visit Repor ton 07-12-2024 Gastroenterology Visit Report Normal [facility] Glomerular filtration rate ( GFR) estimation/1.73 sq m using serum, plasma, or whole bOrdered By: Humaira Churchill on 07-12-2024 GFR/1.73 sq M.predicted among non-blacks MDRD (S/P/Bld) [Vol rate/Area] 21 mL/min/{1.73_m2} Low >60 [facility] Comment on above: mL/min/1.73m2 CKD-EP I Creatinine Equation (2020) Glucose [Mass/Vol]Ordered By : Humaira Churchill on 07-12-2024 Serum glucose measurement (mass/volume) 94 mg/dL 70-99 [facility] Potassium [Moles/Vol]Ordered By: Humaira Churchill on 07-12-2024 Serum or plasma potassium measurement 3.4 mmol/L 3.3-5.1 [facility] Serum creatinine measurement (mass/volume)Ordered By: Humaira Churchill on 07-12-2024 Creatinine [Mass/Vol] 2.35 mg/dL High 0.70-1.20 [facility] Serum glucose measurement (m ass/volume)Ordered By: Humaira Churchill on 07-12-2024 Glucose [Mass/Vol] 94 mg/dL 70-99 [facility] Serum or plasma anion gap de termination (moles/volume)Ordered By: Humaira Churchill on 07-12-2024 Anion gap [Moles/Vol] 14 mmol/L 5-15 [facility] Serum or plasma calcium jing urement (mass/volume)Ordered By: Humaira Churchill on 07-12-2024 Calcium [Mass/Vol] 9.1 mg/dL 7.6-11.0 [facility] Serum or plasma potassium me asurementOrdered By: Humaira Churchill on 07-12-2024 Potassium [Moles/Vol] 3.4 mmol/L 3.3-5.1 [facility] Serum or plasma sodium measu rement (moles/volume)Ordered By: Humaira Churchill on 07-12-2024 Sodium [Moles/Vol] 136 mmol/L 133-145 [facility] Serum or plasma urea nitroge n measurement (mass/volume)Ordered By: Humaira Churchill on 07-12-2024 Urea nitrogen [Mass/Vol] 41 mg/dL High - [facility] Sodium [Moles/Vol]Ordered By : Humaira Churchill on 07-12-2024 Serum or plasma sodium measurement (moles/volume) 136 mmol/L 133-145 [facility] Urea nitrogen [Mass/Vol]Orde red By: Humaira Churchill on 07-12-2024 Serum or plasma urea nitrogen measurement (mass/volume) 41 mg/dL High - [facility] Basic Metabolic Profile (BMP )on 07-10-2024 Chloride [Moles/Vol] 97 mmol/L Low 98-107 [facility] Comment on above: Order Comment: Order Date: 07/04/24Order Info: 666- - BMPOrder Info: 3016-3 - TSHdue 07/08/24 Performed By: #### L 500.2500 ####[facility] [address] [place], [place], [address] CO2 [Moles/Vol] 21.1 mmol/L Normal 21.0-32.0 [facility] Comment on above: Order Comment: Order Date: 07/04/24Order Info: 666- - BMPOrder Info: 3016-3 - TSHdue 07/08/24 Performed By: #### L 500.2500 ####[facility] [address] [place], [address] GAP 21 High 5-15 [facility] Comment on above: Order Comment: Order Date: 07/04/24Order Info: 666- - BMPOrder Info: 3016-3 - TSHdue 07/08/24 Performed By: #### L 500.2500 ####[facility] [address] [place], [address] Potassium [Moles/Vol] 3.4 mmol/L Low 3.5-5.1 [facility] Comment on above: Order Comment: Order Date: 07/04/24Order Info: 666-05 - BMPOrder Info: 3 - TSHdue 07/08/24 Performed By: #### L 500.2500 ####[facility] [address] [place], [address] Sodium [Moles/Vol] 139 mmol/L Normal 136-145 [facility] Comment on above: Order Comment: Order Date: 07/04/24Order Info: 666-05 - BMPOrder Info: 3015-07 - TSHdue 07/08/24 Performed By: #### L 500.2500 ####[facility] [address] [place], [address] Calcium [Mass/Vol] 9.2 mg/dL Normal 7.6-11.0 [facility] Comment on above: Order Comment: Order Date: 07/04/24Order Info: 666-05 - BMPOrder Info: 3 - TSHdue 07/08/24 Performed By: #### L 500.2500 ####[facility] [address] [place], [address] BUN/creatinine ratioOrdered By: Humaira Churchill on 07-09-2024 Urea nitrogen/Creatinine [Mass ratio] 17.6 mg/mg 03-03 [facility] BUN/creatinine ratio 17.6 RATIO 03-03 [facility] CO2 [Moles/Vol]Ordered By: Kenia Churchill on 07-09-2024 Serum or plasma carbon dioxide measurement (moles/volume) 21.1 mmol/L 21.0-32.0 [facility] Calcium [Mass/Vol]Ordered By : Humaira Churchill on 07-09-2024 Serum or plasma calcium measurement (mass/volume) 9.2 mg/dL 7.6-11.0 [facility] Chloride [Moles/Vol]Ordered By: Humaira Churchill on 07-09-2024 Serum or plasma chloride measurement (moles/volume) 97 mmol/L Low 98-107 [facility] Creatinine [Moles/Vol]Ordere d By: Humaira Churchill on 07-09-2024 Serum or plasma creatinine measurement (moles/volume) 2.2 mg/dL High 0.6-1.0 [facility] GFR/1.73 sq M.predicted daniella g non-blacks MDRD (S/P/Bld) [Vol rate/Area]Ordered By: Humaira Churchill on 07-09-2024 Glomerular filtration rate (GFR) estimation/1.73 sq m using serum, plasma, or whole b 23 Low >60 [facility] Glomerular filtration rate ( GFR) estimation/1.73 sq m using serum, plasma, or whole bOrdered By: Humaira Churchill on 07-09-2024 GFR/1.73 sq M.predicted among non-blacks MDRD (S/P/Bld) [Vol rate/Area] 23 mL/min/{1.73_m2} Low >60 [facility] Comment on above: mL/min/1.73m2 CKD-EP I Creatinine Equation (2020) Glucose [Mass/Vol]Ordered By : Humaira Churchill on 07-09-2024 Serum glucose measurement (mass/volume) 97 mg/dL 70-99 [facility] Potassium measurementOrdered By: Humaira Churchill on 07-09-2024 Potassium [Moles/Vol] 3.4 mmol/L Low 3.5-5.1 [facility] Potassium measurement 3.4 mmol/L Low 3.5-5.1 [facility] Serum anion gap measurementO rdered By: Humaira Churchill on 07-09-2024 Anion gap [Moles/Vol] 21 mmol/L High 5-15 [facility] Serum anion gap measurement 21 High 5-15 [facility] Serum glucose measurement (m ass/volume)Ordered By: Humaira Churchill on 07-09-2024 Glucose [Mass/Vol] 97 mg/dL 70-99 [facility] Serum or plasma calcium jing urement (mass/volume)Ordered By: Humaira Churchill on 07-09-2024 Calcium [Mass/Vol] 9.2 mg/dL 7.6-11.0 [facility] Serum or plasma carbon dioxi de measurement (moles/volume)Ordered By: Humaira Churchill on 07-09-2024 CO2 [Moles/Vol] 21.1 mmol/L 21.0-32.0 [facility] Serum or plasma chloride dalton surement (moles/volume)Ordered By: Humaira Churchill on 07-09-2024 Chloride [Moles/Vol] 97 mmol/L Low 98-107 [facility] Serum or plasma creatinine m easurement (moles/volume)Ordered By: Humaira Churchill on 07-09-2024 Creatinine [Moles/Vol] 2.2 mg/dL High 0.6-1.0 [facility] Serum or plasma urea nitroge n measurement (mass/volume)Ordered By: Humaira Churchill on 07-09-2024 Urea nitrogen [Mass/Vol] 38 mg/dL High 4-19 [facility] Sodium levelOrdered By: Humaira Churchill on 07-09-2024 Sodium [Moles/Vol] 139 mmol/L 136-145 [facility] Sodium level 139 mmol/L 136-145 [facility] TSH DL <= 0.005 mIU/L QnOrde red By: Humaira Churchill on 07-09-2024 TSH Qn 13.600 uIU/mL High 0.300-4.200 [facility] Serum or plasma thyroid stimulating hormone (TSH) measurement by high sensitivity met 13.600 uIU/mL High 0.300-4.200 [facility] Thyroid Stim Hormone (TSH)on 07-09-2024 TSH 13.600 uIU/mL High 0.300-4.200 [facility] Comment on above: Order Comment: Order Date: 07/04/24Order Info: 0667-1 - BMPOrder Info: 3016-3 - TSH Performed By: #### L 501.9520 ####[facility] [address] [place], [address] Urea nitrogen [Mass/Vol]Orde red By: Humaira Churchill on 07-09-2024 Serum or plasma urea nitrogen measurement (mass/volume) 38 mg/dL High 4-19 [facility] ALP [Catalytic activity/Vol] Ordered By: Humaira Churchill on 07-02-2024 Serum or plasma alkaline phosphatase measurement 84 U/L 45-117 [facility] ALT [Catalytic activity/Vol] Ordered By: Humaira Churchill on 07-02-2024 Serum or plasma alanine aminotransferase (ALT) measurement 19 U/L 13-56 [facility] Absolute lymphocyte countOrd ered By: Humaira Churchill on 07-02-2024 Lymphocytes Auto (Unsp spec) [#/Vol] 0.45 10*3/uL Low 0.83-4.51 [facility] Absolute neutrophil countOrd ered By: Humaira Churchill on 07-02-2024 Neutrophils (Bld) [#/Vol] 4.2 10*3/uL 2.0-7.7 [facility] Absolute neutrophil count 4.2 X10^3/uL 2.0-7.7 [facility] Albumin [Mass/Vol]Ordered By : Humaira Churchill on 07-02-2024 Serum or plasma albumin measurement (mass/volume) 2.7 g/dL Low 3.2-5.0 [facility] Albumin to globulin ratioOrd ered By: Humaira Churchill on 07-02-2024 Albumin/Globulin [Mass ratio] 0.8 {ratio} Low 0.9-2.4 [facility] Albumin to globulin ratio 0.8 RATIO Low 0.9-2.4 [facility] Automated lymphocyte count a s percentage of total leukocytesOrdered By: Humaira Churchill on 07-02-2024 Lymphocytes/100 WBC Auto (Unsp spec) 8.2 % Low 19-41 [facility] Basophil percentageOrdered B y: Humaira Churchill on 07-02-2024 Basophils/100 WBC (Bld) 1.1 % High 0-1 [facility] Basophil percentage 1.1 % High 0-1 [facility] Bilirubin, totalOrdered By: Humaira Churchill on 07-02-2024 Bilirubin [Mass/Vol] 0.50 mg/dL 0.20-1.00 [facility] Comment on above: For patients on eltr ombopag therapy, use of [employer] [place] TBIL is not recommended. Bilirubin, total 0.50 mg/dL 0.20-1.00 [facility] Blood urea nitrogen (BUN)/cr eatinine ratioOrdered By: Humaira Churchill on 07-02-2024 Urea nitrogen/Creatinine [Mass ratio] 19.2 mg/mg 03-03 [facility] Blood urea nitrogen (BUN)/creatinine ratio 19.2 RATIO 03-03 [facility] CBC W/Diff, Automatedon 06-15 Absolute Lymph 0.45 X10 3/uL Low 0.83-4.51 [facility] Comment on above: Performed By: #### L 501.9520, L100.0100, L500.4050 ####[facility] [address] [place], [address] Absolute Neut 4.2 X10 3/uL Normal 2.0-7.7 [facility] Comment on above: Performed By: #### L 501.9520, L100.0100, L500.4050 ####[facility] [address] [place], [address] Basophils/100 WBC (Bld) 1.1 % High 0-1 [facility] Comment on above: Performed By: #### L 501.9520, L100.0100, L500.4050 ####[facility] [address] [place], [address] Eosinophils/100 WBC (Bld) 2.2 % Normal 0-5 [facility] Comment on above: Performed By: #### L 501.9520, L100.0100, L500.4050 ####[facility] [address] [place], [address] Erythrocyte distribution width (RBC) [Ratio] 16.8 % High 11.6-14.6 [facility] Comment on above: Performed By: #### L 501.9520, L100.0100, L500.4050 ####[facility] [address] [place], [address] Hematocrit (Bld) [Volume fraction] 30.2 % Low 37-47 [facility] Comment on above: Performed By: #### L 501.9520, L100.0100, L500.4050 ####[facility] [address] [place], [address] Hemoglobin (Bld) [Mass/Vol] 8.9 g/dL Low 12.0-15.0 [facility] Comment on above: Performed By: #### L 501.9520, L100.0100, L500.4050 ####[facility] [address] [place], [address] IG% 0.500 Normal 0.0-0.9 [facility] Comment on above: Result Comment: IG% - Immature Granulocytes (promyelocytes, myelocytes andmetamyelocytes) > 1% indicates that a LEFT SHIFT is Present. Performed By: #### L 501.9520, L100.0100, L500.4050 ####[facility] [address] [place], [address] Lymphocytes/100 WBC (Bld) 8.2 % Low 19-41 [facility] Comment on above: Performed By: #### L 501.9520, L100.0100, L500.4050 ####[facility] [address] [place], [address] MCH (RBC) [Entitic mass] 27.7 pg Normal 27.0-32.0 [facility] Comment on above: Performed By: #### L 501.9520, L100.0100, [id number] ####[facility] [address] [place], [address] MCHC (RBC) [Mass/Vol] 29.5 g/dL Low 32-36 [facility] Comment on above: Performed By: #### L 501.9520, L100.0100, L500.4050 ####[facility] [address] [place], [address] MCV (RBC) [Entitic vol] 94.1 fL Normal 81-99 [facility] Comment on above: Performed By: #### L 501.9520, L100.0100, [id number] ####[facility] [address] [place], [address] Monocytes/100 WBC (Bld) 11.4 % High 0-10 [facility] Comment on above: Performed By: #### L 501.9520, L100.0100, [id number] ####[facility] [address] [place], [address] Neutrophils/100 WBC (Bld) 76.6 % High 47-70 [facility] Comment on above: Performed By: #### L 501.9520, L100.0100, L500.4050 ####[facility] [address] [place], [address] Nucleated RBC (Bld) [#/Vol] 0 10*3/uL Normal 0-5 [facility] Comment on above: Performed By: #### L 501.9520, L100.0100, L500.4050 ####[facility] [address] [place], [address] Platelet mean volume (Bld) [Entitic vol] 10.7 fL Normal 6.2-12.0 [facility] Comment on above: Performed By: #### L 501.9520, L100.0100, L500.4050 ####[facility] [address] [place], [address] Platelets (Bld) [#/Vol] 399 10*3/uL Normal 150-450 [facility] Comment on above: Performed By: #### L 501.9520, L100.0100, L500.4050 ####[facility] [address] [place], [address] RBC (Bld) [#/Vol] 3.21 10*6/uL Low 4.2-5.4 [facility] Comment on above: Performed By: #### L 501.9520, L100.0100, L500.4050 ####[facility] [address] [place], [address] RDW SD 55.5 fl High 35.1-43.9 [facility] Comment on above: Performed By: #### L 501.9520, L100.0100, [id number] ####[facility] [address] [place], [address] WBC (Bld) [#/Vol] 5.5 10*3/uL Normal 4.4-11.0 [facility] Comment on above: Performed By: #### L 501.9520, L100.0100, L500.4050 ####[facility] [address] [place], [address] Calcium [Mass/Vol]Ordered By : Humaira Churchill on 07-02-2024 Serum or plasma calcium measurement (mass/volume) 9.0 mg/dL 8.5-10.1 [facility] Carbon dioxide measurementOr dered By: Humaira Churchill on 07-02-2024 CO2 [Moles/Vol] 27.0 mmol/L 21.0-32.0 [facility] Carbon dioxide measurement 27.0 mmol/L 21.0-32.0 [facility] Chloride measurementOrdered By: Humaira Churchill on 07-02-2024 Chloride [Moles/Vol] 100 mmol/L 98-107 [facility] Chloride measurement 100 mmol/L 98-107 [facility] Comprehensive Metabolic Prof ilon 07-02-2024 Albumin [Mass/Vol] 2.7 g/dL Low 3.2-5.0 [facility] Comment on above: Performed By: #### L 501.9520, L100.0100, L500.4050 ####[facility] [address] [place], [address] Albumin/Globulin [Mass ratio] 0.8 {ratio} Low 0.9-2.4 [facility] Comment on above: Performed By: #### L 501.9520, L100.0100, [id number] ####[facility] [address] [place], [address] ALK P 84 U/L Normal 45-117 [facility] Comment on above: Performed By: #### L 501.9520, L100.0100, [id number] ####[facility] [address] [place], [address] ALT [Catalytic activity/Vol] 19 U/L Normal 13-56 [facility] Comment on above: Performed By: #### L 501.9520, L100.0100, [id number] ####[facility] [address] [place], [address] AST [Catalytic activity/Vol] 22 U/L Normal 15-37 [facility] Comment on above: Performed By: #### L 501.9520, L100.0100, [id number] ####[facility] [address] [place], [address] Bilirubin [Mass/Vol] 0.50 mg/dL Normal 0.20-1.00 [facility] Comment on above: Result Comment: For patients on eltrombopag therapy, use of [place] TBIL is not recommended. Performed By: #### L 501.9520, L100.0100, L500.4050 ####[facility] [address] [place], [address] BUN/CRE 19.2 RATIO Normal 10-20 [facility] Comment on above: Performed By: #### L 501.9520, L100.0100, L500.4050 ####[facility] [address] [place], [address] CA,Total 9.0 mg/dL Normal 8.5-10.1 [facility] Comment on above: Performed By: #### L 501.9520, L100.0100, [id number] ####[facility] [address] [place], [address] Chloride [Moles/Vol] 100 mmol/L Normal 98-107 [facility] Comment on above: Performed By: #### L 501.9520, L100.0100, [id number] ####[facility] [address] [place], [address] CO2 [Moles/Vol] 27.0 mmol/L Normal 21.0-32.0 [facility] Comment on above: Performed By: #### L 501.9520, L100.0100, L500.4050 ####[facility] [address] [place], [address] Creatinine [Mass/Vol] 2.19 mg/dL High 0.55-1.02 [facility] Comment on above: Result Comment: The validity of the calculated GFR GFRAA in patients over70 years has not been determined. Clinical correlation isessential. Performed By: #### L 501.9520, L100.0100, L500.4050 ####[facility] [address] [place], [address] EST GFR - AA 28 mL/min Low >60 [facility] Comment on above: Result Comment: Afri can Martiniquais GFR Calc Performed By: #### L 501.9520, L100.0100, L500.4050 ####[facility] [address] [place], [address] GAP 10 Normal 5-15 [facility] Comment on above: Performed By: #### L 501.9520, L100.0100, [id number] ####[facility] [address] [place], [address] GFR/1.73 sq M.predicted among non-blacks MDRD (S/P/Bld) [Vol rate/Area] 23 mL/min/{1.73_m2} Low >60 [facility] Comment on above: Result Comment: Non- GFR Calc Performed By: #### L 501.9520, L100.0100, L500.4050 ####[facility] [address] [place], [address] Globulin (S) [Mass/Vol] 3.6 g/dL Normal 2.2-4.2 [facility] Comment on above: Performed By: #### L 501.9520, L100.0100, L500.4050 ####[facility] [address] [place], [address] Glucose [Mass/Vol] 77 mg/dL Normal 74-106 [facility] Comment on above: Performed By: #### L 501.9520, L100.0100, [id number] ####[facility] [address] [place], [address] Potassium [Moles/Vol] 3.1 mmol/L Low 3.5-5.1 [facility] Comment on above: Performed By: #### L 501.9520, L100.0100, L500.4050 ####[facility] [address] [place], [address] Sodium [Moles/Vol] 138 mmol/L Normal 136-145 [facility] Comment on above: Performed By: #### L 501.9520, L100.0100, [id number] ####[facility] [address] [place], [address] T PROT 6.3 g/dL Low 6.4-8.2 [facility] Comment on above: Performed By: #### L 501.9520, L100.0100, [id number] ####[facility] [address] [place], [address] Urea nitrogen [Mass/Vol] 42 mg/dL High 7-18 [facility] Comment on above: Performed By: #### L 501.9520, L100.0100, [id number] ####[facility] [address] [place], [address] Creatinine [Mass/Vol]Ordered By: Humaira Churchill on 07-02-2024 Serum or plasma creatinine measurement (mass/volume) 2.19 mg/dL High 0.55-1.02 [facility] Eosinophil percentageOrdered By: Humaira Churchill on 07-02-2024 Eosinophils/100 WBC (Bld) 2.2 % 0-5 [facility] Eosinophil percentage 2.2 % 0-5 [facility] Erythrocyte distribution wid th (RBC) [Entitic vol]Ordered By: Humaira Churchill on 07-02-2024 Erythrocyte distribution width standard deviation 55.5 fl High 35.1-43.9 [facility] Erythrocyte distribution wid th (RBC) [Ratio]Ordered By: Humaira Churchill on 07-02-2024 Erythrocyte distribution width ratio 16.8 % High 11.6-14.6 [facility] Erythrocyte distribution wid th ratioOrdered By: Humaira Churchill on 07-02-2024 Erythrocyte distribution width (RBC) [Ratio] 16.8 % High 11.6-14.6 [facility] Erythrocyte distribution wid th standard deviationOrdered By: Humaira Churchill on 07-02-2024 Erythrocyte distribution width (RBC) [Ratio] 55.5 fl High 35.1-43.9 [facility] Estimated glomerular filtrat ion rate (GFR) AmericanOrdered By: Humaira Churchill on 07-02-2024 Estimated glomerular filtration rate (GFR) 28 mL/min Low >60 [facility] Glomerular filtration rate ( GFR) estimationOrdered By: Humaira Churchill on 07-02-2024 GFR/1.73 sq M.predicted among non-blacks MDRD (S/P/Bld) [Vol rate/Area] 23 mL/min/{1.73_m2} Low >60 [facility] Comment on above: Non- GFR Calc Glomerular filtration rate (GFR) estimation 23 mL/min Low >60 [facility] Glucose measurementOrdered B y: Humaira Churchill on 07-02-2024 Glucose [Mass/Vol] 77 mg/dL 74-106 [facility] Glucose measurement 77 mg/dL 74-[address] [facility] Hematocrit Auto (Bld) [Volum e fraction]Ordered By: Humaira Churchill on 07-02-2024 Hematocrit (Bld) [Volume fraction] 30.2 % Low 37-47 [facility] Automated blood hematocrit (percentage) 30.2 % Low 37-47 [facility] Hemoglobin measurementOrdere d By: Humaira Churchill on 07-02-2024 Hemoglobin (Bld) [Mass/Vol] 8.9 g/dL Low 12.0-15.0 [facility] Hemoglobin measurement 8.9 g/dL Low 12.0-15.0 [facility] Immature granulocytes/100 WB C Auto (Bld)Ordered By: Humaira Churchill on 07-02-2024 Immature granulocytes/100 WBC (Bld) 0.500 % 0.0-0.9 [facility] Comment on above: IG% - Immature Granu locytes (promyelocytes, myelocytes and metamyelocytes) > 1% indicates that a LEFT SHIFT is Present. Automated immature granulocyte percentage 0.500 % 0.0-0.9 [facility] Laboratory - Chemistry and C hemistry - challengeOrdered By: Humaira Churchill on 07-02-2024 AST [Catalytic activity/Vol] 22 U/L 15-37 [facility] Lymphocytes Auto (Unsp spec) [#/Vol]Ordered By: Humaira Churchill on 07-02-2024 Absolute lymphocyte count 0.45 X10^3/uL Low 0.83-4.51 [facility] Lymphocytes/100 WBC Auto (Un sp spec)Ordered By: Humaira Churchill on 07-02-2024 Automated lymphocyte count as percentage of total leukocytes 8.2 % Low 19-41 [facility] MCV (RBC) [Entitic vol]Order ed By: Humaira Churchill on 07-02-2024 MCV (mean corpuscular volume) determination 94.1 fL 81-99 [facility] MCV (mean corpuscular volume ) determinationOrdered By: Humaira Churchill on 07-02-2024 MCV (RBC) [Entitic vol] 94.1 fL 81-99 [facility] Mean corpuscular hemoglobin (MCH) determinationOrdered By: Humaira Churchill on 07-02-2024 MCH (RBC) [Entitic mass] 27.7 pg 27.0-32.0 [facility] Mean corpuscular hemoglobin (MCH) determination 27.7 pg 27.0-32.0 [facility] Mean corpuscular hemoglobin concentration (MCHC) determinationOrdered By: Humaira Churchill on 07-02-2024 MCHC (RBC) [Mass/Vol] 29.5 g/dL Low 32-36 [facility] Mean corpuscular hemoglobin concentration (MCHC) determination 29.5 g/dL Low 32-36 [facility] Mean platelet volume determi nationOrdered By: Humaira Churchill on 07-02-2024 Platelet mean volume (Bld) [Entitic vol] 10.7 fL 6.2-12.0 [facility] Mean platelet volume determination 10.7 fl 6.2-12.0 [facility] Monocyte percentageOrdered B y: Humaira Churchill on 07-02-2024 Monocytes/100 WBC (Bld) 11.4 % High 0-10 [facility] Monocyte percentage 11.4 % High 0-10 [facility] Neutrophil percentageOrdered By: Humaira Churchill on 07-02-2024 Neutrophils/100 WBC (Bld) 76.6 % High 47-70 [facility] Neutrophil percentage 76.6 % High 47-70 [facility] No Panel InformationOrdered By: Humaira Churchill on 07-02-2024 22 U/L 15-37 [facility] Nucleated red blood cell per centageOrdered By: Humaira Churchill on 07-02-2024 Nucleated RBC/100 WBC (Bld) [Ratio] 0 % 0-5 [facility] Nucleated red blood cell percentage 0 % 0-5 [facility] Platelet countOrdered By: Alexander Churchill on 07-02-2024 Platelets (Bld) [#/Vol] 399 10*3/uL 150-450 [facility] Platelet count 399 K/mm3 150-450 [facility] Potassium measurementOrdered By: Humaira Churchill on 07-02-2024 Potassium [Moles/Vol] 3.1 mmol/L Low 3.5-5.1 [facility] Potassium measurement 3.1 mmol/L Low 3.5-5.1 [facility] RBC Auto (Bld) [#/Vol]Ordere d By: Humaira Churchill on 07-02-2024 RBC (Bld) [#/Vol] 3.21 10*6/uL Low 4.2-5.4 [facility] Automated blood erythrocyte count 3.21 M/mm3 Low 4.2-5.4 [facility] Serum anion gap measurementO rdered By: Humaira Churchill on 07-02-2024 Anion gap [Moles/Vol] 10 mmol/L 5-15 [facility] Serum anion gap measurement 10 5-15 [facility] Serum globulin measurementOr dered By: Humaira Churchill on 07-02-2024 Globulin (S) [Mass/Vol] 3.6 g/dL 2.2-4.2 [facility] Serum globulin measurement 3.6 g/dL 2.2-4.2 [facility] Serum or plasma alanine alvarado otransferase (ALT) measurementOrdered By: Humaira Churchill on 07-02-2024 ALT [Catalytic activity/Vol] 19 U/L 13-56 [facility] Serum or plasma albumin jing urement (mass/volume)Ordered By: Humaira Churchill on 07-02-2024 Albumin [Mass/Vol] 2.7 g/dL Low 3.2-5.0 [facility] Serum or plasma alkaline jose elias sphatase measurementOrdered By: Humaira Churchill on 07-02-2024 ALP [Catalytic activity/Vol] 84 U/L 45-117 [facility] Serum or plasma calcium jing urement (mass/volume)Ordered By: Humaira Churchill on 07-02-2024 Calcium [Mass/Vol] 9.0 mg/dL 8.5-10.1 [facility] Serum or plasma creatinine m easurement (mass/volume)Ordered By: Humaira Churchill on 07-02-2024 Creatinine [Mass/Vol] 2.19 mg/dL High 0.55-1.02 [facility] Comment on above: The validity of the calculated GFR & GFRAA in patients over 70 years has not been determined. Clinical correlation is essential. Serum or plasma thyroid stim ulating hormone (TSH) measurement (units/volume)Ordered By: Humaira Churchill on 07-02-2024 TSH Qn 31.000 uIU/mL High 0.358-3.740 [facility] Serum or plasma urea nitroge n measurement (mass/volume)Ordered By: Humaira Churchill on 07-02-2024 Urea nitrogen [Mass/Vol] 42 mg/dL High 11-29 [facility] Sodium levelOrdered By: Humaira Churchill on 07-02-2024 Sodium [Moles/Vol] 138 mmol/L 136-145 [facility] Sodium level 138 mmol/L 136-145 [facility] TSH QnOrdered By: Humaira hooks on 07-02-2024 Serum or plasma thyroid stimulating hormone (TSH) measurement (units/volume) 31.000 uIU/mL High 0.358-3.740 [facility] Thyroid Stim Hormone (TSH)on 07-02-2024 TSH 31.000 uIU/mL High 0.358-3.740 [facility] Comment on above: Performed By: #### L 501.9520, L100.0100, L500.4050 ####[facility] [address] [place], [place], [address] Total proteinOrdered By: Humaira Churchill on 07-02-2024 Protein [Mass/Vol] 6.3 g/dL Low 6.4-8.2 [facility] Total protein 6.3 g/dL Low 6.4-8.2 [facility] Urea nitrogen [Mass/Vol]Orde red By: Humaria Churchill on 07-02-2024 Serum or plasma urea nitrogen measurement (mass/volume) 42 mg/dL High 11-29 [facility] White blood cell (WBC) count Ordered By: Humaira Churchill on 07-02-2024 WBC (Bld) [#/Vol] 5.5 10*3/uL 4.4-11.0 [facility] White blood cell (WBC) count 5.5 K/mm3 4.4-11.0 [facility] Basic Metabolic Profile (BMP )on 06-26-2024 BUN Normal 7-18 [facility] Comment on above: Result Comment: Canc elled via OM: Order cancelled - Patient discharged Performed By: #### L 100.0100, L500.2500, L300.3900 ####[facility] [address] [place], [address] BUN/CRE Normal 10-20 [facility] Comment on above: Result Comment: Canc elled via OM: Order cancelled - Patient discharged Performed By: #### L 100.0100, L500.2500, L300.3900 ####[facility] [address] [place], [address] CA,Total Normal 8.5-10.1 [facility] Comment on above: Result Comment: Canc elled via OM: Order cancelled - Patient discharged Performed By: #### L 100.0100, L500.2500, L300.3900 ####[facility] [address] [place], [address] CL Normal 98-107 [facility] Comment on above: Result Comment: Canc elled via OM: Order cancelled - Patient discharged Performed By: #### L 100.0100, L500.2500, L300.3900 ####[facility] [address] [place], [address] CO2 Normal 21.0-32.0 [facility] Comment on above: Result Comment: Canc elled via OM: Order cancelled - Patient discharged Performed By: #### L 100.0100, L500.2500, L300.3900 ####[facility] [address] [place], [address] CREAT,SERUM Normal 0.55-1.02 [facility] Comment on above: Result Comment: Canc elled via OM: Order cancelled - Patient discharged Performed By: #### L 100.0100, L500.2500, L300.3900 ####[facility] [address] [place], [address] EST GFR Normal >60 [facility] Comment on above: Result Comment: Canc elled via OM: Order cancelled - Patient discharged Performed By: #### L 100.0100, L500.2500, L300.3900 ####[facility] [address] [place], [address] EST GFR - AA Normal >60 [facility] Comment on above: Result Comment: Canc elled via OM: Order cancelled - Patient discharged Performed By: #### L 100.0100, L500.2500, L300.3900 ####[facility] [address] [place], [address] GAP Normal 5-15 [facility] Comment on above: Result Comment: Canc elled via OM: Order cancelled - Patient discharged Performed By: #### L 100.0100, L500.2500, L300.3900 ####[facility] [address] [place], [address] GLU Normal 74-106 [facility] Comment on above: Result Comment: Canc elled via OM: Order cancelled - Patient discharged Performed By: #### L 100.0100, L500.2500, L300.3900 ####[facility] [address] [place], [address] Potassium Normal 3.5-5.1 [facility] Comment on above: Result Comment: Canc elled via OM: Order cancelled - Patient discharged Performed By: #### L 100.0100, L500.2500, L300.3900 ####[facility] [address] [place], [address] Basic Metabolic Profile (BMP) Normal 136-145 [facility] Comment on above: Result Comment: Canc elled via OM: Order cancelled - Patient discharged Performed By: #### L 100.0100, L500.2500, L300.3900 ####[facility] [address] [place], [address] CBC W/Diff, Automatedon 06-15 Absolute Neut Normal 2.0-7.7 [facility] Comment on above: Result Comment: Canc elled via OM: Order cancelled - Patient discharged Performed By: #### L 100.0100, L500.2500, L300.3900 ####[facility] [address] [place], [address] HCT Normal 37-47 [facility] Comment on above: Result Comment: Canc elled via OM: Order cancelled - Patient discharged Performed By: #### L 100.0100, L500.2500, L300.3900 ####[facility] [address] [place], [address] HGB Normal 12.0-15.0 [facility] Comment on above: Result Comment: Canc elled via OM: Order cancelled - Patient discharged Performed By: #### L 100.0100, L500.2500, L300.3900 ####[facility] [address] [place], [address] MCH Normal 27.0-32.0 [facility] Comment on above: Result Comment: Canc elled via OM: Order cancelled - Patient discharged Performed By: #### L 100.0100, L500.2500, L300.3900 ####[facility] [address] [place], [address] MCHC Normal 32-36 [facility] Comment on above: Result Comment: Canc elled via OM: Order cancelled - Patient discharged Performed By: #### L 100.0100, L500.2500, L300.3900 ####[facility] [address] [place], [address] MCV Normal 81-99 [facility] Comment on above: Result Comment: Canc elled via OM: Order cancelled - Patient discharged Performed By: #### L 100.0100, L500.2500, L300.3900 ####[facility] [address] [place], [address] NEUT% Normal 47-70 [facility] Comment on above: Result Comment: Canc elled via OM: Order cancelled - Patient discharged Performed By: #### L 100.0100, L500.2500, L300.3900 ####[facility] [address] [place], [address] PLT Normal 150-450 [facility] Comment on above: Result Comment: Canc elled via OM: Order cancelled - Patient discharged Performed By: #### L 100.0100, L500.2500, L300.3900 ####[facility] [address] [place], [address] RBC Normal 4.2-5.4 [facility] Comment on above: Result Comment: Canc elled via OM: Order cancelled - Patient discharged Performed By: #### L 100.0100, L500.2500, L300.3900 ####[facility] [address] [place], [address] RDW CV Normal 11.6-14.6 [facility] Comment on above: Result Comment: Canc elled via OM: Order cancelled - Patient discharged Performed By: #### L 100.0100, L500.2500, L300.3900 ####[facility] [address] [place], [address] RDW SD Normal 35.1-43.9 [facility] Comment on above: Result Comment: Canc elled via OM: Order cancelled - Patient discharged Performed By: #### L 100.0100, L500.2500, L300.3900 ####[facility] [address] [place], [address] WBC Normal 4.4-11.0 [facility] Comment on above: Result Comment: Canc elled via OM: Order cancelled - Patient discharged Performed By: #### L 100.0100, L500.2500, L300.3900 ####[facility] [address] [place], [address] Culture, Blood (WB)on 2024 CUB Blood cultures x2, f rom two different sites No growth in 5 days. Normal [facility] Comment on above: Performed By: #### M 200.1000 ####[facility] [address] [place], [address] Prothrombin Time w/INRon INR Normal [facility] Comment on above: Result Comment: Canc elled via OM: Order cancelled - Patient discharged Performed By: #### L 100.0100, L500.2500, L300.3900 ####[facility] [address] [place], [address] PROTIME Normal 11.7-14.9 [facility] Comment on above: Result Comment: Canc elled via OM: Order cancelled - Patient discharged Performed By: #### L 100.0100, L500.2500, L300.3900 ####[facility] [address] [place], [address] Absolute lymphocyte countOrd ered By: Cornelio Licona on 06-25-2024 Lymphocytes Auto (Unsp spec) [#/Vol] 0.47 10*3/uL Low 0.83-4.51 [facility] Absolute neutrophil countOrd ered By: Cornelio Licona on 06-25-2024 Absolute neutrophil count 10.1 X10^3/uL High 2.0-7.7 [facility] Automated lymphocyte count a s percentage of total leukocytesOrdered By: Cornleio Licona on 06-25-2024 Lymphocytes/100 WBC Auto (Unsp spec) 3.9 % Low 19-41 [facility] Basic Metabolic Profile (BMP )on 06-25-2024 BUN/CRE 25.2 RATIO High 10-20 [facility] Comment on above: Performed By: #### L 500.2500, L100.0100, L300.3900 ####[facility] [address] [place], [address] CA,Total 8.9 mg/dL Normal 8.5-10.1 [facility] Comment on above: Performed By: #### L 500.2500, L100.0100, L300.3900 ####[facility] [address] [place], [address] Chloride [Moles/Vol] 105 mmol/L Normal 98-107 [facility] Comment on above: Performed By: #### L 500.2500, L100.0100, L300.3900 ####[facility] [address] [place], [address] CO2 [Moles/Vol] 27.0 mmol/L Normal 21.0-32.0 [facility] Comment on above: Performed By: #### L 500.2500, L100.0100, L300.3900 ####[facility] [address] [place], [address] Creatinine [Mass/Vol] 2.14 mg/dL High 0.55-1.02 [facility] Comment on above: Result Comment: The validity of the calculated GFR GFRAA in patients over70 years has not been determined. Clinical correlation isessential. Performed By: #### L 500.2500, L100.0100, L300.3900 ####[facility] [address] [place], [address] ECRCL 22.76 ml/min Normal [facility] Comment on above: Performed By: #### L 500.2500, L100.0100, L300.3900 ####[facility] [address] [place], [address] EST GFR - AA 29 mL/min Low >60 [facility] Comment on above: Result Comment: Afri can Martiniquais GFR Calc Performed By: #### L 500.2500, L100.0100, L300.3900 ####[facility] [address] [place], [address] GAP 6 Normal 5-15 [facility] Comment on above: Performed By: #### L 500.2500, L100.0100, L300.3900 ####[facility] [address] [place], [address] GFR/1.73 sq M.predicted among non-blacks MDRD (S/P/Bld) [Vol rate/Area] 24 mL/min/{1.73_m2} Low >60 [facility] Comment on above: Result Comment: Non- GFR Calc Performed By: #### L 500.2500, L100.0100, L300.3900 ####[facility] [address] [place], [address] Glucose [Mass/Vol] 93 mg/dL Normal 74-106 [facility] Comment on above: Performed By: #### L 500.2500, L100.0100, L300.3900 ####[facility] [address] [place], [address] Potassium [Moles/Vol] 3.5 mmol/L Normal 3.5-5.1 [facility] Comment on above: Performed By: #### L 500.2500, L100.0100, L300.3900 ####[facility] [address] [place], [address] Sodium [Moles/Vol] 138 mmol/L Normal 136-145 [facility] Comment on above: Performed By: #### L 500.2500, L100.0100, L300.3900 ####[facility] [address] [place], [address] Urea nitrogen [Mass/Vol] 54 mg/dL High 7-18 [facility] Comment on above: Performed By: #### L 500.2500, L100.0100, L300.3900 ####[facility] [address] [place], [address] Basophil percentageOrdered B y: Cornelio Licona on 06-25-2024 Basophils/100 WBC (Bld) 0.4 % 0-1 [facility] Basophil percentage 0.4 % 0-1 [facility] Blood urea nitrogen (BUN)/cr eatinine ratioOrdered By: Cornelio Licona on 06-25-2024 Blood urea nitrogen (BUN)/creatinine ratio 25.2 RATIO High 10-20 [facility] CBC W/Diff, Automatedon 06-15 Absolute Lymph 0.47 X10 3/uL Low 0.83-4.51 [facility] Comment on above: Performed By: #### L 500.2500, L100.0100, L300.3900 ####[facility] [address] [place], [address] Absolute Neut 10.1 X10 3/uL High 2.0-7.7 [facility] Comment on above: Performed By: #### L 500.2500, L100.0100, L300.3900 ####[facility] [address] [place], [address] Basophils/100 WBC (Bld) 0.4 % Normal 0-1 [facility] Comment on above: Performed By: #### L 500.2500, L100.0100, L300.3900 ####[facility] [address] [place], [address] Eosinophils/100 WBC (Bld) 0.9 % Normal 0-5 [facility] Comment on above: Performed By: #### L 500.2500, L100.0100, L300.3900 ####[facility] [address] [place], [address] Erythrocyte distribution width (RBC) [Ratio] 17.7 % High 11.6-14.6 [facility] Comment on above: Performed By: #### L 500.2500, L100.0100, L300.3900 ####[facility] [address] [place], [address] Hematocrit (Bld) [Volume fraction] 27.5 % Low 37-47 [facility] Comment on above: Performed By: #### L 500.2500, L100.0100, L300.3900 ####[facility] [address] [place], [address] Hemoglobin (Bld) [Mass/Vol] 8.8 g/dL Low 12.0-15.0 [facility] Comment on above: Performed By: #### L 500.2500, L100.0100, L300.3900 ####[facility] [address] [place], [address] IG% 1.100 High 0.0-0.9 [facility] Comment on above: Result Comment: IG% - Immature Granulocytes (promyelocytes, myelocytes andmetamyelocytes) > 1% indicates that a LEFT SHIFT is Present. Performed By: #### L 500.2500, L100.0100, L300.3900 ####[facility] [address] [place], [address] Lymphocytes/100 WBC (Bld) 3.9 % Low 19-41 [facility] Comment on above: Performed By: #### L 500.2500, L100.0100, L300.3900 ####[facility] [address] [place], [address] MCH (RBC) [Entitic mass] 29.5 pg Normal 27.0-32.0 [facility] Comment on above: Performed By: #### L 500.2500, L100.0100, L300.3900 ####[facility] [address] [place], [address] MCHC (RBC) [Mass/Vol] 32.0 g/dL Normal 32-36 [facility] Comment on above: Performed By: #### L 500.2500, L100.0100, L300.3900 ####[facility] [address] [place], [address] MCV (RBC) [Entitic vol] 92.3 fL Normal 81-99 [facility] Comment on above: Performed By: #### L 500.2500, L100.0100, L300.3900 ####[facility] [address] [place], [address] Monocytes/100 WBC (Bld) 9.0 % Normal 0-10 [facility] Comment on above: Performed By: #### L 500.2500, L100.0100, L300.3900 ####[facility] [address] [place], [address] Neutrophils/100 WBC (Bld) 84.7 % High 47-70 [facility] Comment on above: Performed By: #### L 500.2500, L100.0100, L300.3900 ####[facility] [address] [place], [address] Nucleated RBC (Bld) [#/Vol] 0.2 10*3/uL Normal 0-5 [facility] Comment on above: Performed By: #### L 500.2500, L100.0100, L300.3900 ####[facility] [address] [place], [address] Platelet mean volume (Bld) [Entitic vol] 10.7 fL Normal 6.2-12.0 [facility] Comment on above: Performed By: #### L 500.2500, L100.0100, L300.3900 ####[facility] [address] [place], [address] Platelets (Bld) [#/Vol] 320 10*3/uL Normal 150-450 [facility] Comment on above: Performed By: #### L 500.2500, L100.0100, L300.3900 ####[facility] [address] [place], [address] RBC (Bld) [#/Vol] 2.98 10*6/uL Low 4.2-5.4 [facility] Comment on above: Performed By: #### L 500.2500, L100.0100, L300.3900 ####[facility] [address] [place], [address] RDW SD 53.4 fl High 35.1-43.9 [facility] Comment on above: Performed By: #### L 500.2500, L100.0100, L300.3900 ####[facility] [address] [place], [address] WBC (Bld) [#/Vol] 12.0 10*3/uL High 4.4-11.0 [facility] Comment on above: Performed By: #### L 500.2500, L100.0100, L300.3900 ####[facility] [address] [place], [address] Calcium [Mass/Vol]Ordered By : Cornelio Licona on 06-25-2024 Serum or plasma calcium measurement (mass/volume) 8.9 mg/dL 8.5-10.1 [facility] Carbon dioxide measurementOr dered By: Cornelio Licona on 06-25-2024 CO2 [Moles/Vol] 27.0 mmol/L 21.0-32.0 [facility] Carbon dioxide measurement 27.0 mmol/L 21.0-32.0 [facility] Chloride measurementOrdered By: Cornelio Licona on 06-25-2024 Chloride [Moles/Vol] 105 mmol/L 98-107 [facility] Chloride measurement 105 mmol/L 98-107 [facility] Creatinine [Mass/Vol]Ordered By: Cornelio Licona on 06-25-2024 Serum or plasma creatinine measurement (mass/volume) 2.14 mg/dL High 0.55-1.02 [facility] Discharge Instructionon 06-15 Discharge Instruction Normal [facility] Eosinophil percentageOrdered By: Cornelio Licona on 06-25-2024 Eosinophils/100 WBC (Bld) 0.9 % 0-5 [facility] Eosinophil percentage 0.9 % 0-5 [facility] Erythrocyte distribution wid th (RBC) [Entitic vol]Ordered By: Cornelio Licona on 06-25-2024 Erythrocyte distribution width standard deviation 53.4 fl High 35.1-43.9 [facility] Erythrocyte distribution wid th (RBC) [Ratio]Ordered By: Cornelio Licona on 06-25-2024 Erythrocyte distribution width ratio 17.7 % High 11.6-14.6 [facility] Erythrocyte distribution wid th ratioOrdered By: Cornelio Licona on 06-25-2024 Erythrocyte distribution width (RBC) [Ratio] 17.7 % High 11.6-14.6 [facility] Erythrocyte distribution wid th standard deviationOrdered By: Cornelio Licona on 06-25-2024 Erythrocyte distribution width (RBC) [Ratio] 53.4 fl High 35.1-43.9 [facility] Estimated glomerular filtrat ion rate (GFR) AmericanOrdered By: Cornelio Licona on 06-25-2024 Estimated glomerular filtration rate (GFR) 29 mL/min Low >60 [facility] Estimation of creatinine frida aranceOrdered By: Cornelio Licona on 06-25-2024 Estimation of creatinine clearance 22.76 ml/min [facility] Glomerular filtration rate ( GFR) estimationOrdered By: Cornelio Licona on 06-25-2024 GFR/1.73 sq M.predicted among non-blacks MDRD (S/P/Bld) [Vol rate/Area] 24 mL/min/{1.73_m2} Low >60 [facility] Glomerular filtration rate (GFR) estimation 24 mL/min Low >60 [facility] Glucose measurementOrdered B y: Cornelio Licona on 06-25-2024 Glucose [Mass/Vol] 93 mg/dL 74-106 [facility] Glucose measurement 93 mg/dL 74-106 [facility] Hematocrit Auto (Bld) [Volum e fraction]Ordered By: Cornelio Licona on 06-25-2024 Hematocrit (Bld) [Volume fraction] 27.5 % Low 37-47 [facility] Automated blood hematocrit (percentage) 27.5 % Low 37-47 [facility] Hemoglobin measurementOrdere d By: Cornelio Licona on 06-25-2024 Hemoglobin (Bld) [Mass/Vol] 8.8 g/dL Low 12.0-15.0 [facility] Hemoglobin measurement 8.8 g/dL Low 12.0-15.0 [facility] Immature granulocytes/100 WB C Auto (Bld)Ordered By: Cornelio Licona on 06-25-2024 Immature granulocytes/100 WBC (Bld) 1.100 % High 0.0-0.9 [facility] Automated immature granulocyte percentage 1.100 % High 0.0-0.9 [facility] International normalized rat io (INR) calculationOrdered By: Cornelio Licona on 06-25-2024 International normalized ratio (INR) calculation 1.2 [facility] Lymphocytes Auto (Unsp spec) [#/Vol]Ordered By: Cornelio Licona on 06-25-2024 Absolute lymphocyte count 0.47 X10^3/uL Low 0.83-4.51 [facility] Lymphocytes/100 WBC Auto (Un sp spec)Ordered By: Cornelio Licona on 06-25-2024 Automated lymphocyte count as percentage of total leukocytes 3.9 % Low 19-41 [facility] MCV (RBC) [Entitic vol]Order ed By: Cornelio Licona on 06-25-2024 MCV (mean corpuscular volume) determination 92.3 fL 81-99 [facility] MCV (mean corpuscular volume ) determinationOrdered By: Cornelio Licona on 06-25-2024 MCV (RBC) [Entitic vol] 92.3 fL 81-99 [facility] Mean corpuscular hemoglobin (MCH) determinationOrdered By: Cornelio Licona on 06-25-2024 MCH (RBC) [Entitic mass] 29.5 pg 27.0-32.0 [facility] Mean corpuscular hemoglobin (MCH) determination 29.5 pg 27.0-32.0 [facility] Mean corpuscular hemoglobin concentration (MCHC) determinationOrdered By: Cornelio Licona on 06-25-2024 Mean corpuscular hemoglobin concentration (MCHC) determination 32.0 g/dL 32-36 [facility] Mean platelet volume determi nationOrdered By: Cornelio Licona on 06-25-2024 Mean platelet volume determination 10.7 fl 6.2-12.0 [facility] Monocyte percentageOrdered B y: Cornelio Licona on 06-25-2024 Monocytes/100 WBC (Bld) 9.0 % 0-10 [facility] Monocyte percentage 9.0 % 0-10 [facility] Neutrophil percentageOrdered By: Cornelio Licona on 06-25-2024 Neutrophils/100 WBC (Bld) 84.7 % High 47-70 [facility] Neutrophil percentage 84.7 % High 47-70 [facility] Nucleated red blood cell per centageOrdered By: Cornelio Licona on 06-25-2024 Nucleated red blood cell percentage 0.2 % 0-5 [facility] Platelet countOrdered By: Merrill Licona on 06-25-2024 Platelets (Bld) [#/Vol] 320 10*3/uL 150-450 [facility] Platelet count 320 K/mm3 150-450 [facility] Potassium measurementOrdered By: Cornelio Licona on 06-25-2024 Potassium [Moles/Vol] 3.5 mmol/L 3.5-5.1 [facility] Potassium measurement 3.5 mmol/L 3.5-5.1 [facility] Prothrombin Time w/INRon INR Coag (PPP) [Relative time] 1.2 {INR} Normal [facility] Comment on above: Performed By: #### L 500.2500, L100.0100, L300.3900 ####[facility] [address] [place], [address] PT Coag (PPP) [Time] 15.5 s High 11.7-14.9 [facility] Comment on above: Performed By: #### L 500.2500, L100.0100, L300.3900 ####[facility] [address] [place], [address] Prothrombin timeOrdered By: Cornelio Licona on 06-25-2024 PT Coag (PPP) [Time] 15.5 s High 11.7-14.9 [facility] Prothrombin time 15.5 SECONDS High 11.7-14.9 [facility] RBC Auto (Bld) [#/Vol]Ordere d By: Cornelio Licona on 06-25-2024 RBC (Bld) [#/Vol] 2.98 10*6/uL Low 4.2-5.4 [facility] Automated blood erythrocyte count 2.98 M/mm3 Low 4.2-5.4 [facility] Serum anion gap measurementO rdered By: Cornelio Licona on 06-25-2024 Serum anion gap measurement 6 5-15 [facility] Serum or plasma calcium jing urement (mass/volume)Ordered By: Cornelio Licona on 06-25-2024 Calcium [Mass/Vol] 8.9 mg/dL 8.5-10.1 [facility] Serum or plasma creatinine m easurement (mass/volume)Ordered By: Corneloi Licona on 06-25-2024 Creatinine [Mass/Vol] 2.14 mg/dL High 0.55-1.02 [facility] Serum or plasma urea nitroge n measurement (mass/volume)Ordered By: Cornelio Licona on 06-25-2024 Urea nitrogen [Mass/Vol] 54 mg/dL High 7-18 [facility] Sodium levelOrdered By: Moshe Licona on 06-25-2024 Sodium [Moles/Vol] 138 mmol/L 136-145 [facility] Sodium level 138 mmol/L 136-145 [facility] Urea nitrogen [Mass/Vol]Orde red By: Cornelio Licona on 06-25-2024 Serum or plasma urea nitrogen measurement (mass/volume) 54 mg/dL High 7-18 [facility] White blood cell (WBC) count Ordered By: Cornelio Licona on 06-25-2024 WBC (Bld) [#/Vol] 12.0 10*3/uL High 4.4-11.0 [facility] White blood cell (WBC) count 12.0 K/mm3 High 4.4-11.0 [facility] Basic Metabolic Profile (BMP )on 06-24-2024 BUN/CRE 31.6 RATIO High 10-20 [facility] Comment on above: Performed By: #### L 100.0100, L300.3900, L500.2500 ####[facility] [address] [place], [address] CA,Total 8.3 mg/dL Low 8.5-10.1 [facility] Comment on above: Performed By: #### L 100.0100, L300.3900, L500.2500 ####[facility] [address] [place], [address] Chloride [Moles/Vol] 107 mmol/L Normal 98-107 [facility] Comment on above: Performed By: #### L 100.0100, L300.3900, L500.2500 ####[facility] [address] [place], [address] CO2 [Moles/Vol] 25.0 mmol/L Normal 21.0-32.0 [facility] Comment on above: Performed By: #### L 100.0100, L300.3900, L500.2500 ####[facility] [address] [place], [address] Creatinine [Mass/Vol] 2.15 mg/dL High 0.55-1.02 [facility] Comment on above: Result Comment: The validity of the calculated GFR GFRAA in patients over70 years has not been determined. Clinical correlation isessential. Performed By: #### L 100.0100, L300.3900, L500.2500 ####[facility] [address] [place], [address] ECRCL 22.65 ml/min Normal [facility] Comment on above: Performed By: #### L 100.0100, L300.3900, L500.2500 ####[facility] [address] [place], [address] EST GFR - AA 29 mL/min Low >60 [facility] Comment on above: Result Comment: Afri can Martiniquais GFR Calc Performed By: #### L 100.0100, L300.3900, L500.2500 ####[facility] [address] [place], [address] GAP 7 Normal 5-15 [facility] Comment on above: Performed By: #### L 100.0100, L300.3900, L500.2500 ####[facility] [address] [place], [address] GFR/1.73 sq M.predicted among non-blacks MDRD (S/P/Bld) [Vol rate/Area] 24 mL/min/{1.73_m2} Low >60 [facility] Comment on above: Result Comment: Non- GFR Calc Performed By: #### L 100.0100, L300.3900, L500.2500 ####[facility] [address] [place], [address] Glucose [Mass/Vol] 106 mg/dL Normal 74-106 [facility] Comment on above: Result Comment: Fast ing Glucose result from 100 to 125 mg/dLsuggests IMPAIRED HOMEOSTASIS per A.D.A. criteria. Performed By: #### L 100.0100, L300.3900, L500.2500 ####[facility] [address] [place], [address] Potassium [Moles/Vol] 3.9 mmol/L Normal 3.5-5.1 [facility] Comment on above: Performed By: #### L 100.0100, L300.3900, L500.2500 ####[facility] [address] [place], [address] Sodium [Moles/Vol] 138 mmol/L Normal 136-145 [facility] Comment on above: Performed By: #### L 100.0100, L300.3900, L500.2500 ####[facility] [address] [place], [address] Urea nitrogen [Mass/Vol] 68 mg/dL High 7-18 [facility] Comment on above: Performed By: #### L 100.0100, L300.3900, L500.2500 ####[facility] [address] [place], [address] CBC W/Diff, Automatedon 06-15 PATH REV Reviewed Normal [facility] Comment on above: Result Comment: Neut rophilic leukocytosis with left shift.SEVERE Normocytic anemia.Clinical correlation necessary.Coleman Sol M.D. 06/24/24 AMENDED REPORT 06/24/24 1340 PATH REV previously reported as: September Performed By: #### L 300.8000, L300.3900, L500.2500, L300.4310, L503.6620, L100.0100, L501.5425 ####[facility] [address] [place], [address] Absolute Lymph 0.43 X10 3/uL Low 0.83-4.51 [facility] Comment on above: Performed By: #### L 100.0100, L300.3900, L500.2500 ####[facility] [address] [place], [address] Absolute Neut 10.2 X10 3/uL High 2.0-7.7 [facility] Comment on above: Performed By: #### L 100.0100, L300.3900, L500.2500 ####[facility] [address] [place], [address] Basophils/100 WBC (Bld) 0.4 % Normal 0-1 [facility] Comment on above: Performed By: #### L 100.0100, L300.3900, L500.2500 ####[facility] [address] [place], [address] Eosinophils/100 WBC (Bld) 1.2 % Normal 0-5 [facility] Comment on above: Performed By: #### L 100.0100, L300.3900, L500.2500 ####[facility] [address] [place], [address] Erythrocyte distribution width (RBC) [Ratio] 17.1 % High 11.6-14.6 [facility] Comment on above: Performed By: #### L 100.0100, L300.3900, L500.2500 ####[facility] [address] [place], [address] Hematocrit (Bld) [Volume fraction] 25.3 % Low 37-47 [facility] Comment on above: Performed By: #### L 100.0100, L300.3900, L500.2500 ####[facility] [address] [place], [address] Hemoglobin (Bld) [Mass/Vol] 8.1 g/dL Low 12.0-15.0 [facility] Comment on above: Performed By: #### L 100.0100, L300.3900, L500.2500 ####[facility] [address] [place], [address] IG% 1.700 High 0.0-0.9 [facility] Comment on above: Result Comment: IG% - Immature Granulocytes (promyelocytes, myelocytes andmetamyelocytes) > 1% indicates that a LEFT SHIFT is Present. Performed By: #### L 100.0100, L300.3900, L500.2500 ####[facility] [address] [place], [address] Lymphocytes/100 WBC (Bld) 3.6 % Low 19-41 [facility] Comment on above: Performed By: #### L 100.0100, L300.3900, L500.2500 ####[facility] [address] [place], [address] MCH (RBC) [Entitic mass] 29.3 pg Normal 27.0-32.0 [facility] Comment on above: Performed By: #### L 100.0100, L300.3900, L500.2500 ####[facility] [address] [place], [address] MCHC (RBC) [Mass/Vol] 32.0 g/dL Normal 32-36 [facility] Comment on above: Performed By: #### L 100.0100, L300.3900, L500.2500 ####[facility] [address] [place], [address] MCV (RBC) [Entitic vol] 91.7 fL Normal 81-99 [facility] Comment on above: Performed By: #### L 100.0100, L300.3900, L500.2500 ####[facility] [address] [place], [address] Monocytes/100 WBC (Bld) 8.1 % Normal 0-10 [facility] Comment on above: Performed By: #### L 100.0100, L300.3900, L500.2500 ####[facility] [address] [place], [address] Neutrophils/100 WBC (Bld) 85.0 % High 47-70 [facility] Comment on above: Performed By: #### L 100.0100, L300.3900, L500.2500 ####[facility] [address] [place], [address] Nucleated RBC (Bld) [#/Vol] 0.5 10*3/uL Normal 0-5 [facility] Comment on above: Performed By: #### L 100.0100, L300.3900, L500.2500 ####[facility] [address] [place], [address] Platelet mean volume (Bld) [Entitic vol] 10.5 fL Normal 6.2-12.0 [facility] Comment on above: Performed By: #### L 100.0100, L300.3900, L500.2500 ####[facility] [address] [place], [address] Platelets (Bld) [#/Vol] 304 10*3/uL Normal 150-450 [facility] Comment on above: Performed By: #### L 100.0100, L300.3900, L500.2500 ####[facility] [address] [place], [address] RBC (Bld) [#/Vol] 2.76 10*6/uL Low 4.2-5.4 [facility] Comment on above: Performed By: #### L 100.0100, L300.3900, L500.2500 ####[facility] [address] [place], [address] RDW SD 52.8 fl High 35.1-43.9 [facility] Comment on above: Performed By: #### L 100.0100, L300.3900, L500.2500 ####[facility] [address] [place], [address] WBC (Bld) [#/Vol] 12.0 10*3/uL High 4.4-11.0 [facility] Comment on above: Performed By: #### L 100.0100, L300.3900, L500.2500 ####[facility] [address] [place], [address] HH, Hemoglobin AND Hematocri ton 06-24-2024 Hematocrit (Bld) [Volume fraction] 27.0 % Low 37-47 [facility] Comment on above: Performed By: #### L 100.0600 ####[facility] [address] [place], [address] Hemoglobin (Bld) [Mass/Vol] 8.7 g/dL Low 12.0-15.0 [facility] Comment on above: Performed By: #### L 100.0600 ####[facility] [address] [place], [address] Prothrombin Time w/INRon INR Coag (PPP) [Relative time] 1.3 {INR} Normal [facility] Comment on above: Performed By: #### L 100.0100, L300.3900, L500.2500 ####[facility] [address] [place], [address] PT Coag (PPP) [Time] 16.1 s High 11.7-14.9 [facility] Comment on above: Performed By: #### L 100.0100, L300.3900, L500.2500 ####[facility] [address] [place], [address] Basic Metabolic Profile (BMP )on 06-23-2024 BUN/CRE 35.2 RATIO High 10-20 [facility] Comment on above: Performed By: #### L 500.2500 ####[facility] [address] [place], [address] CA,Total 8.5 mg/dL Normal 8.5-10.1 [facility] Comment on above: Performed By: #### L 500.2500 ####[facility] [address] [place], [address] Chloride [Moles/Vol] 110 mmol/L High 98-107 [facility] Comment on above: Performed By: #### L 500.2500 ####[facility] [address] [place], [address] CO2 [Moles/Vol] 23.0 mmol/L Normal 21.0-32.0 [facility] Comment on above: Performed By: #### L 500.2500 ####[facility] [address] [place], [address] Creatinine [Mass/Vol] 2.30 mg/dL High 0.55-1.02 [facility] Comment on above: Result Comment: The validity of the calculated GFR GFRAA in patients over70 years has not been determined. Clinical correlation isessential. Performed By: #### L 500.2500 ####[facility] [address] [place] [address] ECRCL 21.17 ml/min Normal [facility] Comment on above: Performed By: #### L 500.2500 ####[facility] [address] [place], [address] EST GFR - AA 26 mL/min Low >60 [facility] Comment on above: Result Comment: Afri can Martiniquais GFR Calc Performed By: #### L 500.2500 ####[facility] [address] [place], [address] GAP 5 Normal 5-15 [facility] Comment on above: Performed By: #### L 500.2500 ####[facility] [address] [place], [address] GFR/1.73 sq M.predicted among non-blacks MDRD (S/P/Bld) [Vol rate/Area] 22 mL/min/{1.73_m2} Low >60 [facility] Comment on above: Result Comment: Non- GFR Calc Performed By: #### L 500.2500 ####[facility] [address] [place], [address] Glucose [Mass/Vol] 106 mg/dL Normal 74-106 [facility] Comment on above: Result Comment: Fast ing Glucose result from 100 to 125 mg/dLsuggests IMPAIRED HOMEOSTASIS per A.D.A. criteria. Performed By: #### L 500.2500 ####[facility] [address] [place], [address] Potassium [Moles/Vol] 4.6 mmol/L Normal 3.5-5.1 [facility] Comment on above: Performed By: #### L 500.2500 ####[facility] [address] [place], [address] Sodium [Moles/Vol] 139 mmol/L Normal 136-145 [facility] Comment on above: Performed By: #### L 500.2500 ####[facility] [address] [place], [address] Urea nitrogen [Mass/Vol] 81 mg/dL High 7-18 [facility] Comment on above: Performed By: #### L 500.2500 ####[facility] [address] [place], [address] CBC W/Diff, Automatedon 02-0 9-2024 Absolute Lymph 0.62 X10 3/uL Low 0.83-4.51 [facility] Comment on above: Performed By: #### L 100.0100, L300.3900 ####[facility] [address] [place], [address] Absolute Neut 14.8 X10 3/uL High 2.0-7.7 [facility] Comment on above: Performed By: #### L 100.0100, L300.3900 ####[facility] [address] [place], [address] Basophils/100 WBC (Bld) 0.2 % Normal 0-1 [facility] Comment on above: Performed By: #### L 100.0100, L300.3900 ####[facility] [address] [place], [address] Eosinophils/100 WBC (Bld) 0.8 % Normal 0-5 [facility] Comment on above: Performed By: #### L 100.0100, L300.3900 ####[facility] [address] [place], [address] Erythrocyte distribution width (RBC) [Ratio] 17.4 % High 11.6-14.6 [facility] Comment on above: Performed By: #### L 100.0100, L300.3900 ####[facility] [address] [place], [address] Hematocrit (Bld) [Volume fraction] 22.5 % Low 37-47 [facility] Comment on above: Performed By: #### L 100.0100, L300.3900 ####[facility] [address] [place], [address] Hemoglobin (Bld) [Mass/Vol] 7.2 g/dL Low 12.0-15.0 [facility] Comment on above: Performed By: #### L 100.0100, L300.3900 ####[facility] [address] [place], [address] IG% 2.400 High 0.0-0.9 [facility] Comment on above: Result Comment: IG% - Immature Granulocytes (promyelocytes, myelocytes andmetamyelocytes) > 1% indicates that a LEFT SHIFT is Present. Performed By: #### L 100.0100, L300.3900 ####[facility] [address] [place], [address] Lymphocytes/100 WBC (Bld) 3.6 % Low 19-41 [facility] Comment on above: Performed By: #### L 100.0100, L300.3900 ####[facility] [address] [place], [address] MCH (RBC) [Entitic mass] 29.4 pg Normal 27.0-32.0 [facility] Comment on above: Performed By: #### L 100.0100, L300.3900 ####[facility] [address] [place], [address] MCHC (RBC) [Mass/Vol] 32.0 g/dL Normal 32-36 [facility] Comment on above: Performed By: #### L 100.0100, L300.3900 ####[facility] [address] [place], [address] MCV (RBC) [Entitic vol] 91.8 fL Normal 81-99 [facility] Comment on above: Performed By: #### L 100.0100, L300.3900 ####[facility] [address] [place], [address] Monocytes/100 WBC (Bld) 6.5 % Normal 0-10 [facility] Comment on above: Performed By: #### L 100.0100, L300.3900 ####[facility] [address] [place], [address] Neutrophils/100 WBC (Bld) 86.5 % High 47-70 [facility] Comment on above: Performed By: #### L 100.0100, L300.3900 ####[facility] [address] [place], [address] Nucleated RBC (Bld) [#/Vol] 0.9 10*3/uL Normal 0-5 [facility] Comment on above: Performed By: #### L 100.0100, L300.3900 ####[facility] [address] [place], [address] Platelet mean volume (Bld) [Entitic vol] 10.5 fL Normal 6.2-12.0 [facility] Comment on above: Performed By: #### L 100.0100, L300.3900 ####[facility] [address] [place], [address] Platelets (Bld) [#/Vol] 315 10*3/uL Normal 150-450 [facility] Comment on above: Performed By: #### L 100.0100, L300.3900 ####[facility] [address] [place], [address] RBC (Bld) [#/Vol] 2.45 10*6/uL Low 4.2-5.4 [facility] Comment on above: Performed By: #### L 100.0100, L300.3900 ####[facility] [address] [place], [address] RDW SD 55.5 fl High 35.1-43.9 [facility] Comment on above: Performed By: #### L 100.0100, L300.3900 ####[facility] [address] [place], [address] WBC (Bld) [#/Vol] 17.1 10*3/uL High 4.4-11.0 [facility] Comment on above: Performed By: #### L 100.0100, L300.3900 ####[facility] [address] [place], [address] HH, Hemoglobin AND Hematocri ton 06-23-2024 Hematocrit (Bld) [Volume fraction] 26.9 % Low 37-47 [facility] Comment on above: Performed By: #### L 100.0600 ####[facility] [address] [place], [address] Hemoglobin (Bld) [Mass/Vol] 8.5 g/dL Low 12.0-15.0 [facility] Comment on above: Performed By: #### L 100.0600 ####[facility] [address] [place], [address] Prothrombin Time w/INRon INR Coag (PPP) [Relative time] 1.3 {INR} Normal [facility] Comment on above: Performed By: #### L 100.0100, L300.3900 ####[facility] [address] [place], [address] PT Coag (PPP) [Time] 16.7 s High 11.7-14.9 [facility] Comment on above: Performed By: #### L 100.0100, L300.3900 ####[facility] [address] [place], [address] Serum or plasma trough vanco mycin levelOrdered By: Cornelio Licona on 06-23-2024 Vancomycin trough [Mass/Vol] 17.5 ug/mL High 5.0-15.0 [facility] Vancomycin trough [Mass/Vol] Ordered By: Cornelio Licona on 06-23-2024 Serum or plasma trough vancomycin level 17.5 ug/mL High 5.0-15.0 [facility] Vancomycin, Trough Levelon 0 06-23-2024 VANCO, TROUGH 17.5 ug/mL High 5.0-15.0 [facility] Comment on above: Order Comment: Comme nts: Trough to be drawn 30 mins prior to scheduled [id number] Result Comment: VANC OMYCIN STANDARED DRUG THERAPY TROUGH LEVEL: 5.0 - 15.0 mg/LVANCOMYCIN HIGH INTENSITY THERAPY TROUGH LEVEL: 15.0 - 20.0 mg/LHigh Intensity therapy recommended for serious lifethreatening infections include:- Zchingjkwo-Mkpudmsxmnni-Ywaiscuib (Ventilator/Healtcare Associated)-SepsisPLEASE CONTACT PHARMACY SERVICES (#6686) FOR INTERPRETATIONOF RESULTS. Performed By: #### L 501.4930 ####[facility] [address] [place], [address] Acanthocyte detectionOrdered By: Cornelio Licona on 06-22-2024 Acanthocyte detection RARE [facility] Basic Metabolic Profile (BMP )on 06-22-2024 BUN/CRE 40.8 RATIO High 10-20 [facility] Comment on above: Performed By: #### L 500.2500, L501.5200 ####[facility] [address] [place], [address] CA,Total 8.6 mg/dL Normal 8.5-10.1 [facility] Comment on above: Performed By: #### L 500.2500, L501.5200 ####[facility] [address] [place], [address] Chloride [Moles/Vol] 109 mmol/L High 98-107 [facility] Comment on above: Performed By: #### L 500.2500, L501.5200 ####[facility] [address] [place], [address] CO2 [Moles/Vol] 22.0 mmol/L Normal 21.0-32.0 [facility] Comment on above: Performed By: #### L 500.2500, L501.5200 ####[facility] [address] [place], [address] Creatinine [Mass/Vol] 2.33 mg/dL High 0.55-1.02 [facility] Comment on above: Result Comment: The validity of the calculated GFR GFRAA in patients over70 years has not been determined. Clinical correlation isessential. Performed By: #### L 500.2500, L501.5200 ####[facility] [address] [place], [address] ECRCL 21.04 ml/min Normal [facility] Comment on above: Performed By: #### L 500.2500, L501.5200 ####[facility] [address] [place], [address] EST GFR - AA 26 mL/min Low >60 [facility] Comment on above: Result Comment: Afri can Martiniquais GFR Calc Performed By: #### L 500.2500, L501.5200 ####[facility] [address] [place], [address] GAP 8 Normal 5-15 [facility] Comment on above: Performed By: #### L 500.2500, L501.5200 ####[facility] [address] [place], [address] GFR/1.73 sq M.predicted among non-blacks MDRD (S/P/Bld) [Vol rate/Area] 22 mL/min/{1.73_m2} Low >60 [facility] Comment on above: Result Comment: Non- GFR Calc Performed By: #### L 500.2500, L501.5200 ####[facility] [address] [place], [address] Glucose [Mass/Vol] 107 mg/dL High 74-106 [facility] Comment on above: Result Comment: Fast ing Glucose result from 100 to 125 mg/dLsuggests IMPAIRED HOMEOSTASIS per A.D.A. criteria. Performed By: #### L 500.2500, L501.5200 ####[facility] [address] [place], [address] Potassium [Moles/Vol] 4.9 mmol/L Normal 3.5-5.1 [facility] Comment on above: Performed By: #### L 500.2500, L501.5200 ####[facility] [address] [place], [address] Sodium [Moles/Vol] 139 mmol/L Normal 136-145 [facility] Comment on above: Performed By: #### L 500.2500, L501.5200 ####[facility] [address] [place], [address] Urea nitrogen [Mass/Vol] 95 mg/dL High 7-18 [facility] Comment on above: Performed By: #### L 500.2500, L501.5200 ####[facility] [address] [place], [address] Blood manual differential co mment interpretation (narrative result)Ordered By: Cornelio Licona on 06-22-2024 Manual differential comment Ammon (Bld) [Interp] SCANNED [facility] Blood polychromasia detectio n by light microscopyOrdered By: Cornelio Licona on 06-22-2024 Polychromasia LM Ql (Bld) 1+ [facility] Blood polychromasia detection by light microscopy 1+ [facility] Blood schistocyte detection by light microscopyOrdered By: Cornelio Licona on 06-22-2024 Schistocytes LM Ql (Bld) RARE [facility] CBC W/Diff, Automatedon ACANTHOCYTE RARE Normal [facility] Comment on above: Performed By: #### L 501.2300, L300.3900, L100.0100 ####[facility] [address] [place], [address] Anisocytosis Ql (Bld) 1+ Normal [facility] Comment on above: Performed By: #### L 501.2300, L300.3900, L100.0100 ####[facility] [address] [place], [address] MACROCYTOSIS 1+ Normal [facility] Comment on above: Performed By: #### L 501.2300, L300.3900, L100.0100 ####[facility] [address] [place], [address] OVALOCYTE 1+ Normal [facility] Comment on above: Performed By: #### L 501.2300, L300.3900, L100.0100 ####[facility] [address] [place], [address] PLT EST ADEQUATE Normal ADEQ [facility] Comment on above: Performed By: #### L 501.2300, L300.3900, L100.0100 ####[facility] [address] [place], [address] POLYCHROMASIA 1+ Normal [facility] Comment on above: Performed By: #### L 501.2300, L300.3900, L100.0100 ####[facility] [address] [place], [address] SCHISTOCYTES RARE Normal [facility] Comment on above: Performed By: #### L 501.2300, L300.3900, L100.0100 ####[facility] [address] [place], [address] SMEAR COMMENT SCANNED Normal [facility] Comment on above: Performed By: #### L 501.2300, L300.3900, L100.0100 ####[facility] [address] [place], [address] Absolute Neut Normal 2.0-7.7 [facility] Comment on above: Result Comment: DOUP ORDER Performed By: #### L 100.0100 ####[facility] [address] [place], [address] HCT Normal 37-47 [facility] Comment on above: Result Comment: DOUP ORDER Performed By: #### L 100.0100 ####[facility] [address] [place], [address] HGB Normal 12.0-15.0 [facility] Comment on above: Result Comment: DOUP ORDER Performed By: #### L 100.0100 ####[facility] [address] [place], [address] MCH Normal 27.0-32.0 [facility] Comment on above: Result Comment: DOUP ORDER Performed By: #### L 100.0100 ####[facility] [address] [place], [address] MCHC Normal 32-36 [facility] Comment on above: Result Comment: DOUP ORDER Performed By: #### L 100.0100 ####[facility] [address] [place], [address] MCV Normal 81-99 [facility] Comment on above: Result Comment: DOUP ORDER Performed By: #### L 100.0100 ####[facility] [address] [place], [address] NEUT% Normal 47-70 [facility] Comment on above: Result Comment: DOUP ORDER Performed By: #### L 100.0100 ####[facility] [address] [place], [address] PLT Normal 150-450 [facility] Comment on above: Result Comment: DOUP ORDER Performed By: #### L 100.0100 ####[facility] [address] [place], [address] RBC Normal 4.2-5.4 [facility] Comment on above: Result Comment: DOUP ORDER Performed By: #### L 100.0100 ####[facility] [address] [place], [address] RDW CV Normal 11.6-14.6 [facility] Comment on above: Result Comment: DOUP ORDER Performed By: #### L 100.0100 ####[facility] [address] [place], [address] RDW SD Normal 35.1-43.9 [facility] Comment on above: Result Comment: DOUP ORDER Performed By: #### L 100.0100 ####[facility] [address] [place], [address] WBC Normal 4.4-11.0 [facility] Comment on above: Result Comment: DOUP ORDER Performed By: #### L 100.0100 ####[facility] [address] [place], [address] EGD Reporton 06-22-2024 EGD Report Normal [facility] HH, Hemoglobin AND Hematocri ton 06-22-2024 Hematocrit (Bld) [Volume fraction] 24.8 % Low 37-[address] [place] [address] Comment on above: Performed By: #### L 100.0600 ####[facility] [address] [place], [address] Hemoglobin (Bld) [Mass/Vol] 7.9 g/dL Low 12.0-15.0 [facility] Comment on above: Performed By: #### L 100.0600 ####[facility] [address] [place], [address] HCT Normal -[address] [place] [address] Comment on above: Result Comment: @OVE RLAPS WITH CBCD Performed By: #### L 100.0600 ####[facility] [address] [place], [address] HGB Normal 12.0-15.0 [facility] Comment on above: Result Comment: @OVE RLAPS WITH CBCD Performed By: #### L 100.0600 ####[facility] [address] [place], [address] Hematocrit (Bld) [Volume fraction] 23.4 % Low 37-[address] [place] [address] Comment on above: Performed By: #### L 100.0600 ####[facility] [address] [place], [address] Hemoglobin (Bld) [Mass/Vol] 7.5 g/dL Low 12.0-15.0 [facility] Comment on above: Performed By: #### L 100.0600 ####[facility] [address] [place], [address] Hematocrit (Bld) [Volume fraction] 19.7 % Low 37-47 [facility] Comment on above: Performed By: #### L 100.0600 ####[facility] [address] [place], [address] Hemoglobin (Bld) [Mass/Vol] 6.5 g/dL Low 12.0-15.0 [facility] Comment on above: Performed By: #### L 100.0600 ####[facility] [address] [place], [address] MR/POSTOP.ANEon 06-22-2024 MR/POSTOP.ANE Normal [facility] MR/NKTSATGY0bg 06-22-2024 MR/POSTOPAN2 Normal [facility] Macrocytes detectionOrdered By: Cornelio Licona on 06-22-2024 Macrocytes Ql (Bld) 1+ [facility] Magnesium measurementOrdered By: Cornelio Licona on 06-22-2024 Magnesium [Mass/Vol] 2.4 mg/dL Normal 1.6-2.6 [facility] Comment on above: Performed By: #### L 500.2500, L501.5200 ####[facility] [address] [place], [address] Magnesium measurement 2.4 mg/dL 1.6-2.6 [facility] Manual differential comment Ammon (Bld) [Interp]Ordered By: Cornelio Licona on 06-22-2024 Blood manual differential comment interpretation (narrative result) SCANNED [facility] Ovalocyte detectionOrdered B y: Cornelio Licona on 06-22-2024 Ovalocytes LM Ql (Bld) 1+ [facility] Phosphoruson 06-22-2024 Phosphate [Mass/Vol] 2.9 mg/dL Normal 2.5-4.9 [facility] Comment on above: Performed By: #### L 501.2300, L300.3900, L100.0100 ####[facility] [address] [place], [address] Phosphorus measurementOrdere d By: Cornelio Licona on 06-22-2024 Phosphorus measurement 2.9 mg/dL 2.5-4.9 [facility] Platelet estimateOrdered By: Cornelio Licona on 06-22-2024 Platelets LM Ql (Bld) ADEQUATE ADEQ [facility] Platelets LM Ql (Bld)Ordered By: Cornelio Licona on 06-22-2024 Platelet estimate ADEQUATE ADEQ [facility] Prothrombin Time w/INRon INR Coag (PPP) [Relative time] 1.4 {INR} Normal [facility] Comment on above: Performed By: #### L 501.2300, L300.3900, L100.0100 ####[facility] [address] [place], [address] PT Coag (PPP) [Time] 17.1 s High 11.7-14.9 [facility] Comment on above: Performed By: #### L 501.2300, L300.3900, L100.0100 ####[facility] [address] [place], [address] Urine Cultureon 06-22-2024 URC Culture exhibits no growth. Normal [facility] Comment on above: Performed By: #### M 100.678, M100.2200 ####[facility] [address] [place], [address] 12 Lead EKGon 06-21-2024 12 Lead EKG Normal [facility] Activated partial thrombopla stin time (aPTT) in platelet poor plasma by coagulation aOrdered By: Peter Cash on 06-21-2024 aPTT Coag (PPP) [Time] 35.6 s 24.1-36.2 [facility] BNP (brain natriuretic pepti de measurement)Ordered By: Peter Cash on 06-21-2024 Natriuretic peptide B (Bld) [Mass/Vol] 529.8 pg/mL High 0-100 [facility] BNP (brain natriuretic peptide measurement) 529.8 pg/mL High 0-100 [facility] BNP,B-Type NATRIURETIC PEPTI Yaw 06-21-2024 Natriuretic peptide B (Bld) [Mass/Vol] 529.8 pg/mL High 0-100 [facility] Comment on above: Performed By: #### L 300.8000, L300.3900, L500.2500, L300.4310, L503.6620, L100.0100, L501.5425 ####[facility] [address] [place], [address] BRCon 06-21-2024 RC Normal [facility] Comment on above: Result Comment: [id number] ON RC TRANSFUSED 06/21/24 [id number] ON RC TRANSFUSED 06/21/24 1843 Performed By: #### B RC, BTS ####[facility] [address] [place], [address] Result Comment: [id number] BN RC TRANSFUSED 06/22/24 [id number] BN RC TRANSFUSED 06/23/24 1223 Performed By: #### B RC ####[facility] [address] [place], [address] Basic Metabolic Profile (BMP )on 06-21-2024 BUN/CRE 38.3 RATIO High 10-20 [facility] Comment on above: Performed By: #### L 300.8000, L300.3900, L500.2500, L300.4310, L503.6620, L100.0100, L501.5425 ####[facility] [address] [place], [address] CA,Total 8.5 mg/dL Normal 8.5-10.1 [facility] Comment on above: Performed By: #### L 300.8000, L300.3900, L500.2500, L300.4310, L503.6620, L100.0100, L501.5425 ####[facility] [address] [place], [address] Chloride [Moles/Vol] 102 mmol/L Normal 98-107 [facility] Comment on above: Performed By: #### L 300.8000, L300.3900, L500.2500, L300.4310, L503.6620, L100.0100, L501.5425 ####[facility] [address] [place], [address] CO2 [Moles/Vol] 27.0 mmol/L Normal 21.0-32.0 [facility] Comment on above: Performed By: #### L 300.8000, L300.3900, L500.2500, L300.4310, L503.6620, L100.0100, L501.5425 ####[facility] [address] [place], [address] Creatinine [Mass/Vol] 2.82 mg/dL High 0.55-1.02 [facility] Comment on above: Result Comment: The validity of the calculated GFR GFRAA in patients over70 years has not been determined. Clinical correlation isessential. Performed By: #### L 300.8000, L300.3900, L500.2500, L300.4310, L503.6620, L100.0100, L501.5425 ####[facility] [address] [place], [address] ECRCL 16.96 ml/min Normal [facility] Comment on above: Performed By: #### L 300.8000, L300.3900, L500.2500, L300.4310, L503.6620, L100.0100, L501.5425 ####[facility] [address] [place], [address] EST GFR - AA 21 mL/min Low >60 [facility] Comment on above: Result Comment: Afri can Martiniquais GFR Calc Performed By: #### L 300.8000, L300.3900, L500.2500, L300.4310, L503.6620, L100.0100, L501.5425 ####[facility] [address] [place], [address] GAP 8 Normal 5-15 [facility] Comment on above: Performed By: #### L 300.8000, L300.3900, L500.2500, L300.4310, L503.6620, L100.0100, L501.5425 ####[facility] [address] [place], [address] GFR/1.73 sq M.predicted among non-blacks MDRD (S/P/Bld) [Vol rate/Area] 17 mL/min/{1.73_m2} Low >60 [facility] Comment on above: Result Comment: Non- GFR Calc Performed By: #### L 300.8000, L300.3900, L500.2500, L300.4310, L503.6620, L100.0100, L501.5425 ####[facility] [address] [place], [place], [address] Glucose [Mass/Vol] 187 mg/dL High 74-106 [facility] Comment on above: Result Comment: Fast ing Glucose result greater than or equal to 126 mg/dLsuggests DIABETES MELLITUS per A.D.A. criteria. Performed By: #### L 300.8000, L300.3900, L500.2500, L300.4310, L503.6620, L100.0100, L501.5425 ####[facility] [address] [place], [address] Potassium [Moles/Vol] 5.6 mmol/L High 3.5-5.1 [facility] Comment on above: Performed By: #### L 300.8000, L300.3900, L500.2500, L300.4310, L503.6620, L100.0100, L501.5425 ####[facility] [address] [place], [place], [address] Sodium [Moles/Vol] 137 mmol/L Normal 136-145 [facility] Comment on above: Performed By: #### L 300.8000, L300.3900, L500.2500, L300.4310, L503.6620, L100.0100, L501.5425 ####[facility] [address] [place], [place], [phone] Urea nitrogen [Mass/Vol] 108 mg/dL Invalid Interpretation Code 718 [facility] Comment on above: Result Comment: Crit ical Result(s) Called at: 09:00:13 06/21/2024 by:Nette Ruff. Results read back by same. Performed By: #### L 300.8000, L300.3900, L500.2500, L300.4310, L503.6620, L100.0100, L501.5425 ####[facility] [address] [place], [place], [id number] Bilirubin Test strip Ql (U)O rdered By: Cornelio Licona on 06-21-2024 Bilirubin Ql (U) Negative Negative [facility] Blood band neutrophil count as percentage of total leukocytesOrdered By: Peter Cash on 06-21-2024 Band form neutrophils/100 WBC (Bld) 1 % 0-5 [facility] Blood band neutrophil count as percentage of total leukocytes 1 % 0-5 [facility] Blood cultureOrdered By: Veda Cash on 06-21-2024 Bacteria identified Cx Nom (Bld) No growth in 5 days. [facility] Blood culture No growth in 5 days. [facility] Blood eosinophils/100 leukoc ytesOrdered By: Peter Cash on 06-21-2024 Eosinophils/100 WBC (Bld) 1 % 0-5 [facility] Blood lymphocytes/100 leukoc ytesOrdered By: Peter Cash on 06-21-2024 Lymphocytes/100 WBC (Bld) 4 % Low 19-41 [facility] Blood metamyelocytes/100 kalie kocytesOrdered By: Peter Cash on 06-21-2024 Metamyelocytes/100 WBC (Bld) 2 % High 0-1 [facility] Blood monocytes/100 leukocyt esOrdered By: Peter Cash on 06-21-2024 Monocytes/100 WBC (Bld) 3 % 0-10 [facility] Blood segmented neutrophils/ 100 leukocytesOrdered By: Peter Cash on 06-21-2024 Segmented neutrophils/100 WBC (Bld) 89 % High 47-70 [facility] Blood vacuolated neutrophils detection by light microscopyOrdered By: Peter Cash on 06-21-2024 Neutrophils.vacuolated LM Ql (Bld) 1+ [facility] CXR for Line Placementon CXR for Line Placement Normal [facility] Cells counted Molgen (Bld/Ti ss) [#]Ordered By: Peter Cash on 06-21-2024 Total cell count 100 MANUAL DIFF [facility] Chest PA and Lateralon 06-21 Chest PA and Lateral Normal [facility] Clarity (U)Ordered By: Cornelio Licona on 06-21-2024 Urine clarity Sl. Cloudy Clear [facility] Color (U)Ordered By: Cornelio anderson on 06-21-2024 Urine color determination Straw Yellow [facility] Consultation - Intensiviston 06-21-2024 Consultation - Craft Worker Normal [facility] D-Dimer Quantitative (DVT/PE )on 06-21-2024 D-DIMER QUANT 1.75 FEU/ug/m Invalid Interpretation Code 0.27-0.49 [facility] Comment on above: Result Comment: D-Di braulio ELEVATED (>0.49): Additional studies and clinicalassessments are indicated to conclude diagnosis of:Deep Vein Thrombosis (DVT) or Pulmonary Embolism (PE)CRITICAL VALUE CALLED TO HUSEYIN SHELLEY (ER)06/21/24 0919 Skyler Boyce.RESULTS READ BACK BY SAME. Performed By: #### L 300.8000, L300.3900, L500.2500, L300.4310, L503.6620, L100.0100, L501.5425 ####[facility] [address] [place], [address] D-dimer measurement for deep venous thrombosisOrdered By: Peter Cash on 06-21-2024 D-dimer measurement for deep venous thrombosis 1.75 FEU/ug/m High 0.27-0.49 [facility] Emergency Department Summary on 06-21-2024 Emergency Department Summary Normal [facility] H AND P Exam - Hospitaliston 06-21-2024 H&P Exam - Hospitalist Normal [facility] Influenza virus A and B and SARS-CoV-2 (COVID-19) and Respiratory syncytial virus RNAOrdered By: Cornelio Licona on 06-21-2024 SARS-CoV-2 (COVID-19) RNA JEREMIAH+probe Ql (Unsp spec) [facility] Ketones Test strip Ql (U)Ord ered By: Cornelio Licona on 06-21-2024 Ketones Ql (U) Negative Negative [facility] L501.4020on 06-21-2024 TROPONIN-I HS 108 pg/mL High 3.0-54.0 [facility] Comment on above: Order Comment: 'TROP ' Serial specimen #1, #2 or #3: 3 Result Comment: Plea se Note: New Test Units and Gender Specific Reference Ranges. For more information see Policy Stat Procedure [place] High Sensitivity Troponin (TNIH) and attachments. Performed By: #### L 501.4027 ####[facility] [address] [place], [address] TROPONIN-I HS 101 pg/mL High 3.0-54.0 [facility] Comment on above: Result Comment: Crit ical Result(s) Called at: 11:45:31 06/21/2024 by:Nette Edmonds. Results read back by same. Please Note: New Test Units and Gender Specific Reference Ranges. For more information see Policy Stat Procedure [place] High Sensitivity Troponin (TNIH) and attachments. Performed By: #### L 287.4024 ####[facility] [address] [place], [address] L501.5425on 06-21-2024 TROPONIN-I HS 100 pg/mL High 3.0-54.0 [facility] Comment on above: Order Comment: 1Y Result Comment: Jeevan se Note: New Test Units and Gender Specific Reference Ranges. For more information see Policy Stat Procedure [place] High Sensitivity Troponin (TNIH) and attachments. Performed By: #### L 300.8000, L300.3900, L500.2500, L300.4310, L503.6620, L100.0100, L501.5425 ####[facility] [address] [place], [address] Lactic Acidon 06-21-2024 Lactate [Moles/Vol] 0.6 mmol/L Normal 0.4-1.9 [facility] Comment on above: Performed By: #### L 503.600 ####[facility] [address] [place], [address] Lactate [Moles/Vol] 2.9 mmol/L Invalid Interpretation Code 0.4-1.9 [facility] Comment on above: Order Comment: Y Result Comment: Crit ical Result(s) Called at: 11:45:31 06/21/2024 by:Nette Edmonds. Results read back by same. Performed By: #### L 503.6006 ####[facility] [address] [place], [address] Lactic acid measurementOrder ed By: Peter Cash on 06-21-2024 Lactic acid measurement 0.6 mmol/L 0.4-2.0 [facility] Legionella Antigen Urineon 0 06-21-2024 LEGU Normal [facility] Comment on above: Performed By: #### M 300.4600, M300.4500 ####[facility] [address] [place], [address] Leukocyte esterase Test stri p Ql (U)Ordered By: Cornelio Licona on 06-21-2024 Urine leukocyte esterase detection by dipstick 25 /ul High Negative [facility] Lymphocytes/100 WBC (Bld)Ord ered By: Peter Cash on 06-21-2024 Blood lymphocytes/100 leukocytes 4 % Low 19-41 [facility] M100.678on 06-21-2024 M100.678 Pending SARS-CoV-2 (COVID 19) Negative INFLUENZA A Negative INFLUENZA B Negative RSV PCR Negative Normal [facility] Comment on above: Performed By: #### M 100.678, M100.2200 ####[facility] [address] [place], [address] MR/CON.PCM.GIon 06-21-2024 MR/CON.PCM.GI Normal [facility] Metamyelocytes/100 WBC (Bld) Ordered By: Peter Cash on 06-21-2024 Blood metamyelocytes/100 leukocytes 2 % High 0-1 [facility] Monocytes/100 WBC (Bld)Order ed By: Peter Cash on 06-21-2024 Blood monocytes/100 leukocytes 3 % 0-10 [facility] Mucus LM Ql (Urine sed)Order ed By: Cornelio Licona on 06-21-2024 Mucus Ql (Urine sed) 0 SEEN /hpf [facility] Neutrophils.vacuolated LM Ql (Bld)Ordered By: Peter Cash on 06-21-2024 Blood vacuolated neutrophils detection by light microscopy 1+ [facility] Nitrite Test strip Ql (U)Ord ered By: Cornelio Licona on 06-21-2024 Nitrite Ql (U) Negative Negative [facility] Partial Thromboplast Timeon 06-21-2024 aPTT Coag (Bld) [Time] 35.6 s Normal 24.1-36.2 [facility] Comment on above: Performed By: #### L 300.8000, L300.3900, L500.2500, L300.4310, L503.6620, L100.0100, L501.5425 ####[facility] [address] [place], [place], [id number] Pathologist review Ammon (Unsp spec) [Interp]Ordered By: Peter Cash on 06-21-2024 Review by pathologist Reviewed [facility] Protein Test strip Ql (U)Ord ered By: Cornelio Licona on 06-21-2024 Protein Ql (U) 15 mg/dl High Negative [facility] Urine protein assay by test strip, semi-quantitative 15 mg/dl High Negative [facility] Prothrombin Time w/INRon INR Coag (PPP) [Relative time] 2.1 {INR} Normal [facility] Comment on above: Performed By: #### L 300.3900 ####[facility] [address] [place], [address] PT Coag (PPP) [Time] 24.2 s High 11.7-14.9 [facility] Comment on above: Performed By: #### L 300.3900 ####[facility] [address] [place], [address] INR Coag (PPP) [Relative time] 8.8 {INR} Invalid Interpretation Code [facility] Comment on above: Result Comment: CRIT ICAL VALUE CALLED TO HUSEYIN SHELLEY (ER)06/21/24 09 Skyler Boyce.RESULTS READ BACK BY SAME. Performed By: #### L 300.8000, L300.3900, L500.2500, L300.4310, L503.6620, L100.0100, L501.5425 ####[facility] [address] [place], [address] PT Coag (PPP) [Time] 74.5 s High 11.7-14.9 [facility] Comment on above: Performed By: #### L 300.8000, L300.3900, L500.2500, L300.4310, L503.6620, L100.0100, L501.5425 ####[facility] [address] [place], [address] RESPIRATORY PANEL MOLECULARo n 06-21-2024 RP PANEL Normal [facility] Comment on above: Performed By: #### M 100.638 ####[facility] [address] [facility] [address] Respiratory pathogens detect ion panel by molecular detection methodOrdered By: Cornelio Licona on 06-21-2024 Respiratory pathogens DNA and RNA panel JEREMIAH+probe (Resp) [facility] Review by pathologistOrdered By: Peter Cash on 06-21-2024 Pathologist review Ammon (Unsp spec) [Interp] Reviewed [facility] Segmented neutrophils/100 WB C (Bld)Ordered By: Peter Cash on 06-21-2024 Blood segmented neutrophils/100 leukocytes 89 % High 47-70 [facility] Specific gravity (U) [Rel de nsity]Ordered By: Cornelio Licona on 06-21-2024 Urine specific gravity measurement 1.015 1.002-1.030 [facility] Squamous epithelial cells de tection in urine sediment by light microscopyOrdered By: Cornelio Licona on 06-21-2024 Epithelial cells.squamous LM Ql (Urine sed) 0-5 SEEN /hpf 5-10 [facility] Stool Occult Blood iFOBon STOB Normal [facility] Comment on above: Performed By: #### M 100.7900 ####[facility] [address] [place], [address] Stool gastrointestinal hemog lobin detection by immunologic methodOrdered By: Peter Cash on 06-21-2024 Lower GI hemoglobin IA Ql (Stl) [facility] Strep pneumoniae Antig(UR,CS F)on 06-21-2024 STPAG Normal [facility] Comment on above: Performed By: #### M 300.4600, M300.4500 ####[facility] [address] [place], [address] Total cell countOrdered By: Peter Cash on 06-21-2024 Cells counted Molgen (Bld/Tiss) [#] 100 MANUAL DIFF [facility] Troponin IOrdered By: Emily Jones on 06-21-2024 Troponin I 108 pg/mL High 3.0-54.0 [facility] Troponin I 108 pg/mL High 3.0-54.0 [facility] Type AND Screenon 06-21-2024 ABO and Rh group Nom (Bld) Blood group B Rh(D) negative Normal [facility] Comment on above: Order Comment: CMV N EG? NNumber of units to transfuse: 2Is pt's Hgb is = to 7.0 mg/dl or Hct </= 21%? YReason for Ordering Blood: ChronicAre the blood/blood products to be transfused? YIs the patient having/had surgery? NWanisa HinojosaNY Performed By: #### B RC, BTS ####[facility] [address] [place], [address] Urinalysis, Completeon 06-21 EPI,SQUAMOUS 0-5 SEEN Normal 5-10 [facility] Comment on above: Order Comment: CASANDRA TER SPECIMEN Performed By: #### L 400.0001 ####[facility] [address] [place], [address] RBC 0-5 SEEN Normal 0-5 [facility] Comment on above: Order Comment: CASANDRA TER SPECIMEN Performed By: #### L 400.0001 ####[facility] [address] [place], [address] WBC 0-5 SEEN Normal 0-5 [facility] Comment on above: Order Comment: CASANDRA TER SPECIMEN Performed By: #### L 400.0001 ####[facility] [address] [place], [address] BACTERIA 0 SEEN Normal None Seen [facility] Comment on above: Order Comment: CASANDRA TER SPECIMEN Performed By: #### L 400.0001 ####[facility] [address] [place], [address] Mucus Ql (Urine sed) 0 SEEN Normal [facility] Comment on above: Order Comment: CASANDRA TER SPECIMEN Performed By: #### L 400.0001 ####[facility] [address] [place], [address] BACTERIA 0 SEEN Normal None Seen [facility] Comment on above: Order Comment: CLEAN CATCH Performed By: #### L 400.0001 ####[facility] [address] [place], [address] EPI,SQUAMOUS 0 SEEN Normal 5-10 [facility] Comment on above: Order Comment: CLEAN CATCH Performed By: #### L 400.0001 ####[facility] [address] [facility] [address] Mucus Ql (Urine sed) 0 SEEN Normal [facility] Comment on above: Order Comment: CLEAN CATCH Performed By: #### L 400.0001 ####[facility] [address] [facility] [address] RBC 0 SEEN Normal 0-5 [facility] Comment on above: Order Comment: CLEAN CATCH Performed By: #### L 400.0001 ####[facility] [address] [facility] [address] WBC 0 SEEN Normal 0-5 [facility] Comment on above: Order Comment: CLEAN CATCH Performed By: #### L 400.0001 ####[facility] [address] [place], [address] Urine Legionella pneumophila antigen detectionOrdered By: Cornelio Licona on 06-21-2024 L. pneumophila Ag Ql (U) [facility] Urine blood detectionOrdered By: Cornelio Licona on 06-21-2024 Urine blood detection 10 /ul High Negative [facility] Urine clarityOrdered By: Fermin Licona on 06-21-2024 Clarity (U) Sl. Cloudy Clear [facility] Urine color determinationOrd ered By: Cornelio Licona on 06-21-2024 Color (U) Straw Yellow [facility] Urine cultureOrdered By: Fermin Licona on 06-21-2024 Bacteria identified Cx Nom (U) Culture exhibits no growth. [facility] Urine culture Culture exhibits no growth. [facility] Urine glucose detectionOrder ed By: Cornelio Licona on 06-21-2024 Glucose Ql (U) Normal mg/dl Normal [facility] Urine glucose detection Normal mg/dl Normal [facility] Urine leukocyte esterase det ection by dipstickOrdered By: Cornelio Licona on 06-21-2024 Leukocyte esterase Test strip Ql (U) 25 /ul High Negative [facility] Urine pHOrdered By: Cornelio wang on 06-21-2024 pH (U) 6.0 [pH] 5.0 - 8.0 [facility] Urine sediment bacteria coun t by microscopy (number/high power field)Ordered By: Cornelio Licona on 06-21-2024 Bacteria LM.HPF (Urine sed) [#/Area] 0 /[HPF] None Seen [facility] Urine sediment bacteria count by microscopy (number/high power field) 0 SEEN /hpf [facility] Urine specific gravity measu rementOrdered By: Cornelio Licona on 06-21-2024 Specific gravity (U) [Rel density] 1.015 1.002-1.030 [facility] Urine total bilirubin detect ion by test stripOrdered By: Cornelio Licona on 06-21-2024 Urine total bilirubin detection by test strip Negative Negative [facility] Urine urobilinogen measureme ntOrdered By: Cornelio Licona on 06-21-2024 Urobilinogen Ql (U) Normal mg/dl Normal [facility] White blood cell countOrdere d By: Cornelio Licona on 06-21-2024 White blood cell count 0-5 SEEN /hpf 0-5 [facility] White blood cell count 0-5 SEEN /hpf 5-10 [facility] aPTT Coag (PPP) [Time]Ordere d By: Peter Cash on 06-21-2024 Activated partial thromboplastin time (aPTT) in platelet poor plasma by coagulation a 35.6 Seconds 24.1-36.2 [facility] pH (U)Ordered By: Cornelio whitfield on 06-21-2024 Urine pH 6.0 5.0 - 8.0 [facility] Absolute lymphocyte countOrd ered By: Randall Stoddard on 06-13-2024 Lymphocytes Auto (Unsp spec) [#/Vol] 0.25 10*3/uL Low 0.83-4.51 [facility] Absolute neutrophil countOrd ered By: Randall Stoddard on 06-13-2024 Absolute neutrophil count 9.3 X10^3/uL High 2.0-7.7 [facility] Automated lymphocyte count a s percentage of total leukocytesOrdered By: Randall Stoddard on 06-13-2024 Lymphocytes/100 WBC Auto (Unsp spec) 2.3 % Low 19-41 [facility] BNP (brain natriuretic pepti de measurement)Ordered By: Randall Stoddard on 06-13-2024 Natriuretic peptide B (Bld) [Mass/Vol] 1184.0 pg/mL High 0-100 [facility] BNP (brain natriuretic peptide measurement) 1184.0 pg/mL High 0-100 [facility] BNP,B-Type NATRIURETIC PEPTI Yaw 06-13-2024 Natriuretic peptide B (Bld) [Mass/Vol] 1184.0 pg/mL High 0-100 [facility] Comment on above: Performed By: #### L 500.2500, L503.6620, L100.0100 ####[facility] [address] [place], [address] Basic Metabolic Profile (BMP )on 06-13-2024 BUN/CRE 36.0 RATIO High 10-20 [facility] Comment on above: Performed By: #### L 500.2500, L503.6620, L100.0100 ####[facility] [address] [place], [address] CA,Total 9.7 mg/dL Normal 8.5-10.1 [facility] Comment on above: Performed By: #### L 500.2500, L503.6620, L100.0100 ####[facility] [address] [place], [address] Chloride [Moles/Vol] 101 mmol/L Normal 98-107 [facility] Comment on above: Performed By: #### L 500.2500, L503.6620, L100.0100 ####[facility] [address] [place], [address] CO2 [Moles/Vol] 23.0 mmol/L Normal 21.0-32.0 [facility] Comment on above: Performed By: #### L 500.2500, L503.6620, L100.0100 ####[facility] [address] [place], [address] Creatinine [Mass/Vol] 1.75 mg/dL High 0.55-1.02 [facility] Comment on above: Result Comment: The validity of the calculated GFR GFRAA in patients over70 years has not been determined. Clinical correlation isessential. Performed By: #### L 500.2500, L503.6620, L100.0100 ####[facility] [address] [place], [address] EST GFR - AA 36 mL/min Low >60 [facility] Comment on above: Result Comment: Afri can Martiniquais GFR Calc Performed By: #### L 500.2500, L503.6620, L100.0100 ####[facility] [address] [place], [address] GAP 11 Normal 5-15 [facility] Comment on above: Performed By: #### L 500.2500, L503.6620, L100.0100 ####[facility] [address] [place], [address] GFR/1.73 sq M.predicted among non-blacks MDRD (S/P/Bld) [Vol rate/Area] 30 mL/min/{1.73_m2} Low >60 [facility] Comment on above: Result Comment: Non- GFR Calc Performed By: #### L 500.2500, L503.6620, L100.0100 ####[facility] [address] [place], [address] Glucose [Mass/Vol] 146 mg/dL High 74-106 [facility] Comment on above: Result Comment: Fast ing Glucose result greater than or equal to 126 mg/dLsuggests DIABETES MELLITUS per A.D.A. criteria. Performed By: #### L 500.2500, L503.6620, L100.0100 ####[facility] [address] [place], [address] Potassium [Moles/Vol] 3.9 mmol/L Normal 3.5-5.1 [facility] Comment on above: Performed By: #### L 500.2500, L503.6620, L100.0100 ####[facility] [address] [place], [address] Sodium [Moles/Vol] 135 mmol/L Low 136-145 [facility] Comment on above: Performed By: #### L 500.2500, L503.6620, L100.0100 ####[facility] [address] [place], [address] Urea nitrogen [Mass/Vol] 63 mg/dL High 7-18 [facility] Comment on above: Performed By: #### L 500.2500, L503.6620, L100.0100 ####[facility] [address] [place], [address] Basophil percentageOrdered B y: Randall Stoddard on 06-13-2024 Basophils/100 WBC (Bld) 0.3 % 0-1 [facility] Basophil percentage 0.3 % 0-1 [facility] Blood urea nitrogen (BUN)/cr eatinine ratioOrdered By: Randall Stoddard on 06-13-2024 Blood urea nitrogen (BUN)/creatinine ratio 36.0 RATIO High 10-20 [facility] CBC W/Diff, Automatedon 05-17 Absolute Lymph 0.25 X10 3/uL Low 0.83-4.51 [facility] Comment on above: Performed By: #### L 500.2500, L503.6620, L100.0100 ####[facility] [address] [place], [address] Absolute Neut 9.3 X10 3/uL High 2.0-7.7 [facility] Comment on above: Performed By: #### L 500.2500, L503.6620, L100.0100 ####[facility] [address] [place], [address] Basophils/100 WBC (Bld) 0.3 % Normal 0-1 [facility] Comment on above: Performed By: #### L 500.2500, L503.6620, L100.0100 ####[facility] [address] [place], [address] Eosinophils/100 WBC (Bld) 0.1 % Normal 0-5 [facility] Comment on above: Performed By: #### L 500.2500, L503.6620, L100.0100 ####[facility] [address] [place], [address] Erythrocyte distribution width (RBC) [Ratio] 15.7 % High 11.6-14.6 [facility] Comment on above: Performed By: #### L 500.2500, L503.6620, L100.0100 ####[facility] [address] [place], [address] Hematocrit (Bld) [Volume fraction] 33.3 % Low 37-47 [facility] Comment on above: Performed By: #### L 500.2500, L503.6620, L100.0100 ####[facility] [address] [place], [address] Hemoglobin (Bld) [Mass/Vol] 10.7 g/dL Low 12.0-15.0 [facility] Comment on above: Performed By: #### L 500.2500, L503.6620, L100.0100 ####[facility] [address] [place], [address] IG% 1.200 High 0.0-0.9 [facility] Comment on above: Result Comment: IG% - Immature Granulocytes (promyelocytes, myelocytes andmetamyelocytes) > 1% indicates that a LEFT SHIFT is Present. Performed By: #### L 500.2500, L503.6620, L100.0100 ####[facility] [address] [place], [address] Lymphocytes/100 WBC (Bld) 2.3 % Low 19-41 [facility] Comment on above: Performed By: #### L 500.2500, L503.6620, L100.0100 ####[facility] [address] [place], [address] MCH (RBC) [Entitic mass] 28.1 pg Normal 27.0-32.0 [facility] Comment on above: Performed By: #### L 500.2500, L503.6620, L100.0100 ####[facility] [address] [place], [address] MCHC (RBC) [Mass/Vol] 32.1 g/dL Normal 32-36 [facility] Comment on above: Performed By: #### L 500.2500, L503.6620, L100.0100 ####[facility] [address] [place], [address] MCV (RBC) [Entitic vol] 87.4 fL Normal 81-99 [facility] Comment on above: Performed By: #### L 500.2500, L503.6620, L100.0100 ####[facility] [address] [place], [address] Monocytes/100 WBC (Bld) 9.2 % Normal 0-10 [facility] Comment on above: Performed By: #### L 500.2500, L503.6620, L100.0100 ####[facility] [address] [place], [address] Neutrophils/100 WBC (Bld) 86.9 % High 47-70 [facility] Comment on above: Performed By: #### L 500.2500, L503.6620, L100.0100 ####[facility] [address] [place], [address] Nucleated RBC (Bld) [#/Vol] 0 10*3/uL Normal 0-5 [facility] Comment on above: Performed By: #### L 500.2500, L503.6620, L100.0100 ####[facility] [address] [place], [address] Platelet mean volume (Bld) [Entitic vol] 11.0 fL Normal 6.2-12.0 [facility] Comment on above: Performed By: #### L 500.2500, L503.6620, L100.0100 ####[facility] [address] [place], [address] Platelets (Bld) [#/Vol] 296 10*3/uL Normal 150-450 [facility] Comment on above: Performed By: #### L 500.2500, L503.6620, L100.0100 ####[facility] [address] [place], [address] RBC (Bld) [#/Vol] 3.81 10*6/uL Low 4.2-5.4 [facility] Comment on above: Performed By: #### L 500.2500, L503.6620, L100.0100 ####[facility] [address] [place], [address] RDW SD 50.2 fl High 35.1-43.9 [facility] Comment on above: Performed By: #### L 500.2500, L503.6620, L100.0100 ####[facility] [address] [place], [address] WBC (Bld) [#/Vol] 10.7 10*3/uL Normal 4.4-11.0 [facility] Comment on above: Performed By: #### L 500.2500, L503.6620, L100.0100 ####[facility] [address] [place], [address] Calcium [Mass/Vol]Ordered By : Randall Stoddard on 06-13-2024 Serum or plasma calcium measurement (mass/volume) 9.7 mg/dL 8.5-10.1 [facility] Carbon dioxide measurementOr dered By: Randall Stoddard on 06-13-2024 CO2 [Moles/Vol] 23.0 mmol/L 21.0-32.0 [facility] Carbon dioxide measurement 23.0 mmol/L 21.0-32.0 [facility] Chest PA and Lateralon 06-13 Chest PA and Lateral Normal [facility] Chloride measurementOrdered By: Randall Stoddard on 06-13-2024 Chloride [Moles/Vol] 101 mmol/L 98-107 [facility] Chloride measurement 101 mmol/L 98-107 [facility] Creatinine [Mass/Vol]Ordered By: Randall Stoddard on 06-13-2024 Serum or plasma creatinine measurement (mass/volume) 1.75 mg/dL High 0.55-1.02 [facility] Eosinophil percentageOrdered By: Randall Stoddard on 06-13-2024 Eosinophils/100 WBC (Bld) 0.1 % 0-5 [facility] Eosinophil percentage 0.1 % 0-5 [facility] Erythrocyte distribution wid th (RBC) [Entitic vol]Ordered By: Randall Stoddard on 06-13-2024 Erythrocyte distribution width standard deviation 50.2 fl High 35.1-43.9 [facility] Erythrocyte distribution wid th (RBC) [Ratio]Ordered By: Randall Stoddard on 06-13-2024 Erythrocyte distribution width ratio 15.7 % High 11.6-14.6 [facility] Erythrocyte distribution wid th ratioOrdered By: Randall Stoddard on 06-13-2024 Erythrocyte distribution width (RBC) [Ratio] 15.7 % High 11.6-14.6 [facility] Erythrocyte distribution wid th standard deviationOrdered By: Randall Stoddard on 06-13-2024 Erythrocyte distribution width (RBC) [Ratio] 50.2 fl High 35.1-43.9 [facility] Estimated glomerular filtrat ion rate (GFR) AmericanOrdered By: Randall Stoddard on 06-13-2024 Estimated glomerular filtration rate (GFR) 36 mL/min Low >60 [facility] Glomerular filtration rate ( GFR) estimationOrdered By: Randall Stoddard on 06-13-2024 GFR/1.73 sq M.predicted among non-blacks MDRD (S/P/Bld) [Vol rate/Area] 30 mL/min/{1.73_m2} Low >60 [facility] Glomerular filtration rate (GFR) estimation 30 mL/min Low >60 [facility] Glucose measurementOrdered B y: Randall Stoddard on 06-13-2024 Glucose [Mass/Vol] 146 mg/dL High 74-106 [facility] Glucose measurement 146 mg/dL High 74-106 [facility] Hematocrit Auto (Bld) [Volum e fraction]Ordered By: Randall Stoddard on 06-13-2024 Hematocrit (Bld) [Volume fraction] 33.3 % Low 37-47 [facility] Automated blood hematocrit (percentage) 33.3 % Low 37-47 [facility] Hemoglobin measurementOrdere d By: Randall Stoddard on 06-13-2024 Hemoglobin (Bld) [Mass/Vol] 10.7 g/dL Low 12.0-15.0 [facility] Hemoglobin measurement 10.7 g/dL Low 12.0-15.0 [facility] Immature granulocytes/100 WB C Auto (Bld)Ordered By: Randall Stoddard on 06-13-2024 Immature granulocytes/100 WBC (Bld) 1.200 % High 0.0-0.9 [facility] Automated immature granulocyte percentage 1.200 % High 0.0-0.9 [facility] Lymphocytes Auto (Unsp spec) [#/Vol]Ordered By: Randall Stoddard on 06-13-2024 Absolute lymphocyte count 0.25 X10^3/uL Low 0.83-4.51 [facility] Lymphocytes/100 WBC Auto (Un sp spec)Ordered By: Randall Stoddard on 06-13-2024 Automated lymphocyte count as percentage of total leukocytes 2.3 % Low 19-41 [facility] MCV (RBC) [Entitic vol]Order ed By: Randall Stoddard on 06-13-2024 MCV (mean corpuscular volume) determination 87.4 fL 81-99 [facility] MCV (mean corpuscular volume ) determinationOrdered By: Randall Stoddard on 06-13-2024 MCV (RBC) [Entitic vol] 87.4 fL 81-99 [facility] Mean corpuscular hemoglobin (MCH) determinationOrdered By: Randall Stoddard on 06-13-2024 MCH (RBC) [Entitic mass] 28.1 pg 27.0-32.0 [facility] Mean corpuscular hemoglobin (MCH) determination 28.1 pg 27.0-32.0 [facility] Mean corpuscular hemoglobin concentration (MCHC) determinationOrdered By: Randall Stoddard on 06-13-2024 Mean corpuscular hemoglobin concentration (MCHC) determination 32.1 g/dL 32-36 [facility] Mean platelet volume determi nationOrdered By: Randall Stoddard on 06-13-2024 Mean platelet volume determination 11.0 fl 6.2-12.0 [facility] Monocyte percentageOrdered B y: Randall Stoddard on 06-13-2024 Monocytes/100 WBC (Bld) 9.2 % 0-10 [facility] Monocyte percentage 9.2 % 0-10 [facility] Neutrophil percentageOrdered By: Randall Stoddard on 06-13-2024 Neutrophils/100 WBC (Bld) 86.9 % High 47-70 [facility] Neutrophil percentage 86.9 % High 47-70 [facility] Nucleated red blood cell per centageOrdered By: Randall Stoddard on 06-13-2024 Nucleated red blood cell percentage 0 % 0-5 [facility] Platelet countOrdered By: Jabier Stoddard on 06-13-2024 Platelets (Bld) [#/Vol] 296 10*3/uL 150-450 [facility] Platelet count 296 K/mm3 150-450 [facility] Potassium measurementOrdered By: Randall Stoddard on 06-13-2024 Potassium [Moles/Vol] 3.9 mmol/L 3.5-5.1 [facility] Potassium measurement 3.9 mmol/L 3.5-5.1 [facility] RBC Auto (Bld) [#/Vol]Ordere d By: Randall Stoddard on 06-13-2024 RBC (Bld) [#/Vol] 3.81 10*6/uL Low 4.2-5.4 [facility] Automated blood erythrocyte count 3.81 M/mm3 Low 4.2-5.4 [facility] Serum anion gap measurementO rdered By: Randall Stoddard on 06-13-2024 Serum anion gap measurement 11 5-15 [facility] Serum or plasma calcium jing urement (mass/volume)Ordered By: Randall Stoddard on 06-13-2024 Calcium [Mass/Vol] 9.7 mg/dL 8.5-10.1 [facility] Serum or plasma creatinine m easurement (mass/volume)Ordered By: Randall Stoddard on 06-13-2024 Creatinine [Mass/Vol] 1.75 mg/dL High 0.55-1.02 [facility] Serum or plasma urea nitroge n measurement (mass/volume)Ordered By: Randall Stoddard on 06-13-2024 Urea nitrogen [Mass/Vol] 63 mg/dL High 7-18 [facility] Sodium levelOrdered By: Randall Stoddard on 06-13-2024 Sodium [Moles/Vol] 135 mmol/L Low 136-145 [facility] Sodium level 135 mmol/L Low 136-145 [facility] Urea nitrogen [Mass/Vol]Orde red By: Randall Stoddard on 06-13-2024 Serum or plasma urea nitrogen measurement (mass/volume) 63 mg/dL High -18 [facility] White blood cell (WBC) count Ordered By: Randall Stoddard on 06-13-2024 WBC (Bld) [#/Vol] 10.7 10*3/uL 4.4-11.0 [facility] White blood cell (WBC) count 10.7 K/mm3 4.4-11.0 [facility] Absolute lymphocyte countOrd ered By: Rochelle Merritt on 06-09-2024 Lymphocytes Auto (Unsp spec) [#/Vol] 0.24 10*3/uL Low 0.83-4.51 [facility] Absolute neutrophil countOrd ered By: Rochelle Merritt on 06-09-2024 Absolute neutrophil count 12.2 X10^3/uL High 2.0-7.7 [facility] Automated lymphocyte count a s percentage of total leukocytesOrdered By: Rochelle Merritt on 06-09-2024 Lymphocytes/100 WBC Auto (Unsp spec) 1.8 % Low 19-41 [facility] Basic Metabolic Profile (BMP )on 06-09-2024 BUN/CRE 31.1 RATIO High 10-20 [facility] Comment on above: Performed By: #### L 500.2500, L100.0100 ####[facility] [address] [place], [address] CA,Total 8.5 mg/dL Normal 8.5-10.1 [facility] Comment on above: Performed By: #### L 500.2500, L100.0100 ####[facility] [address] [place], [address] Chloride [Moles/Vol] 101 mmol/L Normal 98-107 [facility] Comment on above: Performed By: #### L 500.2500, L100.0100 ####[facility] [address] [place], [address] CO2 [Moles/Vol] 24.0 mmol/L Normal 21.0-32.0 [facility] Comment on above: Performed By: #### L 500.2500, L100.0100 ####[facility] [address] [place], [address] Creatinine [Mass/Vol] 1.77 mg/dL High 0.55-1.02 [facility] Comment on above: Result Comment: The validity of the calculated GFR GFRAA in patients over70 years has not been determined. Clinical correlation isessential. Performed By: #### L 500.2500, L100.0100 ####[facility] [address] [place], [address] ECRCL 26.23 ml/min Normal [facility] Comment on above: Performed By: #### L 500.2500, L100.0100 ####[facility] [address] [place], [address] EST GFR - AA 36 mL/min Low >60 [facility] Comment on above: Result Comment: Afri can Martiniquais GFR Calc Performed By: #### L 500.2500, L100.0100 ####[facility] [address] [place], [address] GAP 6 Normal 5-15 [facility] Comment on above: Performed By: #### L 500.2500, L100.0100 ####[facility] [address] [place], [address] GFR/1.73 sq M.predicted among non-blacks MDRD (S/P/Bld) [Vol rate/Area] 30 mL/min/{1.73_m2} Low >60 [facility] Comment on above: Result Comment: Non- GFR Calc Performed By: #### L 500.2500, L100.0100 ####[facility] [address] [place], [address] Glucose [Mass/Vol] 109 mg/dL High 74-106 [facility] Comment on above: Result Comment: Fast ing Glucose result from 100 to 125 mg/dLsuggests IMPAIRED HOMEOSTASIS per A.D.A. criteria. Performed By: #### L 500.2500, L100.0100 ####[facility] [address] [place], [address] Potassium [Moles/Vol] 4.6 mmol/L Normal 3.5-5.1 [facility] Comment on above: Performed By: #### L 500.2500, L100.0100 ####[facility] [address] [place], [address] Sodium [Moles/Vol] 131 mmol/L Low 136-145 [facility] Comment on above: Performed By: #### L 500.2500, L100.0100 ####[facility] [address] [place], [address] Urea nitrogen [Mass/Vol] 55 mg/dL High 7-18 [facility] Comment on above: Performed By: #### L 500.2500, L100.0100 ####[facility] [address] [place], [address] Basophil percentageOrdered B y: Rochelle Merritt on 06-09-2024 Basophils/100 WBC (Bld) 0.1 % 0-1 [facility] Blood urea nitrogen (BUN)/cr eatinine ratioOrdered By: Rochelle Merritt on 06-09-2024 Blood urea nitrogen (BUN)/creatinine ratio 31.1 RATIO High 10-20 [facility] CBC W/Diff, Automatedon 05-16 Absolute Lymph 0.24 X10 3/uL Low 0.83-4.51 [facility] Comment on above: Performed By: #### L 500.2500, L100.0100 ####[facility] [address] [place], [address] Absolute Neut 12.2 X10 3/uL High 2.0-7.7 [facility] Comment on above: Performed By: #### L 500.2500, L100.0100 ####[facility] [address] [place], [address] Basophils/100 WBC (Bld) 0.1 % Normal 0-1 [facility] Comment on above: Performed By: #### L 500.2500, L100.0100 ####[facility] [address] [place], [address] Eosinophils/100 WBC (Bld) 0.1 % Normal 0-5 [facility] Comment on above: Performed By: #### L 500.2500, L100.0100 ####[facility] [address] [place], [address] Erythrocyte distribution width (RBC) [Ratio] 15.6 % High 11.6-14.6 [facility] Comment on above: Performed By: #### L 500.2500, L100.0100 ####[facility] [address] [place], [address] Hematocrit (Bld) [Volume fraction] 30.9 % Low 37-47 [facility] Comment on above: Performed By: #### L 500.2500, L100.0100 ####[facility] [address] [place], [address] Hemoglobin (Bld) [Mass/Vol] 9.9 g/dL Low 12.0-15.0 [facility] Comment on above: Performed By: #### L 500.2500, L100.0100 ####[facility] [address] [place], [address] IG% 0.300 Normal 0.0-0.9 [facility] Comment on above: Result Comment: IG% - Immature Granulocytes (promyelocytes, myelocytes andmetamyelocytes) > 1% indicates that a LEFT SHIFT is Present. Performed By: #### L 500.2500, L100.0100 ####[facility] [address] [place], [address] Lymphocytes/100 WBC (Bld) 1.8 % Low 19-41 [facility] Comment on above: Performed By: #### L 500.2500, L100.0100 ####[facility] [address] [place], [address] MCH (RBC) [Entitic mass] 28.7 pg Normal 27.0-32.0 [facility] Comment on above: Performed By: #### L 500.2500, L100.0100 ####[facility] [address] [place], [address] MCHC (RBC) [Mass/Vol] 32.0 g/dL Normal 32-36 [facility] Comment on above: Performed By: #### L 500.2500, L100.0100 ####[facility] [address] [place], [address] MCV (RBC) [Entitic vol] 89.6 fL Normal 81-99 [facility] Comment on above: Performed By: #### L 500.2500, L100.0100 ####[facility] [address] [place], [address] Monocytes/100 WBC (Bld) 6.6 % Normal 0-10 [facility] Comment on above: Performed By: #### L 500.2500, L100.0100 ####[facility] [address] [place], [address] Neutrophils/100 WBC (Bld) 91.1 % High 47-70 [facility] Comment on above: Performed By: #### L 500.2500, L100.0100 ####[facility] [address] [place], [address] Nucleated RBC (Bld) [#/Vol] 0 10*3/uL Normal 0-5 [facility] Comment on above: Performed By: #### L 500.2500, L100.0100 ####[facility] [address] [place], [address] Platelet mean volume (Bld) [Entitic vol] 11.6 fL Normal 6.2-12.0 [facility] Comment on above: Performed By: #### L 500.2500, L100.0100 ####[facility] [address] [place], [address] Platelets (Bld) [#/Vol] 161 10*3/uL Normal 150-450 [facility] Comment on above: Performed By: #### L 500.2500, L100.0100 ####[facility] [address] [place], [address] RBC (Bld) [#/Vol] 3.45 10*6/uL Low 4.2-5.4 [facility] Comment on above: Performed By: #### L 500.2500, L100.0100 ####[facility] [address] [place], [address] RDW SD 51.5 fl High 35.1-43.9 [facility] Comment on above: Performed By: #### L 500.2500, L100.0100 ####[facility] [address] [place], [address] WBC (Bld) [#/Vol] 13.4 10*3/uL High 4.4-11.0 [facility] Comment on above: Performed By: #### L 500.2500, L100.0100 ####[facility] [address] [place], [address] Calcium [Mass/Vol]Ordered By : Rochelle Merritt on 06-09-2024 Serum or plasma calcium measurement (mass/volume) 8.5 mg/dL 8.5-10.1 [facility] Carbon dioxide measurementOr dered By: Rochelle Merritt on 06-09-2024 CO2 [Moles/Vol] 24.0 mmol/L 21.0-32.0 [facility] Carbon dioxide measurement 24.0 mmol/L 21.0-32.0 [facility] Chloride measurementOrdered By: Rochelle Merritt on 06-09-2024 Chloride [Moles/Vol] 101 mmol/L 98-107 [facility] Chloride measurement 101 mmol/L 98-107 [facility] Creatinine [Mass/Vol]Ordered By: Rochelle Merritt on 06-09-2024 Serum or plasma creatinine measurement (mass/volume) 1.77 mg/dL High 0.55-1.02 [facility] Discharge Instructionon 05-16 Discharge Instruction Normal [facility] Eosinophil percentageOrdered By: Rochelle Merritt on 06-09-2024 Eosinophils/100 WBC (Bld) 0.1 % 0-5 [facility] Eosinophil percentage 0.1 % 0-1 [facility] Erythrocyte distribution wid th (RBC) [Entitic vol]Ordered By: Rochelle Merritt on 06-09-2024 Erythrocyte distribution width standard deviation 51.5 fl High 35.1-43.9 [facility] Erythrocyte distribution wid th (RBC) [Ratio]Ordered By: Rochelle Merritt on 06-09-2024 Erythrocyte distribution width ratio 15.6 % High 11.6-14.6 [facility] Erythrocyte distribution wid th ratioOrdered By: Rochelle Merritt on 06-09-2024 Erythrocyte distribution width (RBC) [Ratio] 15.6 % High 11.6-14.6 [facility] Erythrocyte distribution wid th standard deviationOrdered By: Rochelle Merritt on 06-09-2024 Erythrocyte distribution width (RBC) [Ratio] 51.5 fl High 35.1-43.9 [facility] Estimated glomerular filtrat ion rate (GFR) AmericanOrdered By: Rochelle Merritt on 06-09-2024 Estimated glomerular filtration rate (GFR) 36 mL/min Low >60 [facility] Estimation of creatinine frida aranceOrdered By: Rochelle Merritt on 06-09-2024 Estimation of creatinine clearance 26.23 ml/min [facility] Glomerular filtration rate ( GFR) estimationOrdered By: Rochelle Merritt on 06-09-2024 GFR/1.73 sq M.predicted among non-blacks MDRD (S/P/Bld) [Vol rate/Area] 30 mL/min/{1.73_m2} Low >60 [facility] Glomerular filtration rate (GFR) estimation 30 mL/min Low >60 [facility] Glucose measurementOrdered B y: Rochelle Merritt on 06-09-2024 Glucose [Mass/Vol] 109 mg/dL High 74-106 oste [facility] Glucose measurement 109 mg/dL High 74-106 [place] [facility] Hematocrit Auto (Bld) [Volum e fraction]Ordered By: Rochelle Merritt on 06-09-2024 Hematocrit (Bld) [Volume fraction] 30.9 % Low 37-47 [facility] Automated blood hematocrit (percentage) 30.9 % Low 37-47 [facility] Hemoglobin measurementOrdere d By: Rochelle Merritt on 06-09-2024 Hemoglobin (Bld) [Mass/Vol] 9.9 g/dL Low 12.0-15.0 [facility] Hemoglobin measurement 9.9 g/dL Low 12.0-15.0 [facility] Immature granulocytes/100 WB C Auto (Bld)Ordered By: Rochelle Merritt on 06-09-2024 Immature granulocytes/100 WBC (Bld) 0.300 % 0.0-0.9 [facility] Automated immature granulocyte percentage 0.300 % 0.0-0.9 [facility] International normalized rat io (INR) calculationOrdered By: Rochelle Merritt on 06-09-2024 International normalized ratio (INR) calculation 2.5 [facility] Lymphocytes Auto (Unsp spec) [#/Vol]Ordered By: Rochelle Merritt on 06-09-2024 Absolute lymphocyte count 0.24 X10^3/uL Low 0.83-4.51 [facility] Lymphocytes/100 WBC Auto (Un sp spec)Ordered By: Rochelle Merritt on 06-09-2024 Automated lymphocyte count as percentage of total leukocytes 1.8 % Low 19-41 [facility] MCV (RBC) [Entitic vol]Order ed By: Rochelle Merritt on 06-09-2024 MCV (mean corpuscular volume) determination 89.6 fL 81-99 [facility] MCV (mean corpuscular volume ) determinationOrdered By: Rochelle Merritt on 06-09-2024 MCV (RBC) [Entitic vol] 89.6 fL 81-99 [facility] Mean corpuscular hemoglobin (MCH) determinationOrdered By: Rochelle Merritt on 06-09-2024 MCH (RBC) [Entitic mass] 28.7 pg 27.0-32.0 [facility] Mean corpuscular hemoglobin (MCH) determination 28.7 pg 27.0-32.0 [facility] Mean corpuscular hemoglobin concentration (MCHC) determinationOrdered By: Rochelle Merritt on 06-09-2024 Mean corpuscular hemoglobin concentration (MCHC) determination 32.0 g/dL 32-36 [facility] Mean platelet volume determi nationOrdered By: Rochelle Merritt on 06-09-2024 Mean platelet volume determination 11.6 fl 6.2-12.0 [facility] Monocyte percentageOrdered B y: Rochelle Merritt on 06-09-2024 Monocytes/100 WBC (Bld) 6.6 % 0-10 [facility] Monocyte percentage 6.6 % 0-10 [facility] Neutrophil percentageOrdered By: Rochelle Merritt on 06-09-2024 Neutrophils/100 WBC (Bld) 91.1 % High 47-70 [facility] Neutrophil percentage 91.1 % High 47-70 [facility] Nucleated red blood cell per centageOrdered By: Rochelle Merritt on 06-09-2024 Nucleated red blood cell percentage 0 % 0-5 [facility] Platelet countOrdered By: Breann Merritt on 06-09-2024 Platelets (Bld) [#/Vol] 161 10*3/uL 150-450 [facility] Platelet count 161 K/mm3 150-450 [facility] Potassium measurementOrdered By: Rochelle Merritt on 06-09-2024 Potassium [Moles/Vol] 4.6 mmol/L 3.5-5.1 [facility] Potassium measurement 4.6 mmol/L 3.5-5.1 [facility] Prothrombin Time w/INRon INR Coag (PPP) [Relative time] 2.5 {INR} Normal [facility] Comment on above: Performed By: #### L 300.3900 ####[facility] [address] [place], [place], [id number] PT Coag (PPP) [Time] 27.2 s High 11.7-14.9 [facility] Comment on above: Performed By: #### L 300.3900 ####[facility] [address] [place], [address] Prothrombin timeOrdered By: Rochelle Merritt on 06-09-2024 PT Coag (PPP) [Time] 27.2 s High 11.7-14.9 [facility] Prothrombin time 27.2 SECONDS High 11.7-14.9 [facility] RBC Auto (Bld) [#/Vol]Ordere d By: Rochelle Merritt on 06-09-2024 RBC (Bld) [#/Vol] 3.45 10*6/uL Low 4.2-5.4 [facility] Automated blood erythrocyte count 3.45 M/mm3 Low 4.2-5.4 [facility] Serum anion gap measurementO rdered By: Rochelle Merritt on 06-09-2024 Serum anion gap measurement 6 5-15 [facility] Serum or plasma calcium jing urement (mass/volume)Ordered By: Rochelle Merritt on 06-09-2024 Calcium [Mass/Vol] 8.5 mg/dL 8.5-10.1 [facility] Serum or plasma creatinine m easurement (mass/volume)Ordered By: Rochelle Merritt on 06-09-2024 Creatinine [Mass/Vol] 1.77 mg/dL High 0.55-1.02 [facility] Serum or plasma urea nitroge n measurement (mass/volume)Ordered By: Rochelle Merritt on 06-09-2024 Urea nitrogen [Mass/Vol] 55 mg/dL High 7-18 [facility] Sodium levelOrdered By: Rochelle Merritt on 06-09-2024 Sodium [Moles/Vol] 131 mmol/L Low 136-145 [facility] Sodium level 131 mmol/L Low 136-145 [facility] Urea nitrogen [Mass/Vol]Orde red By: Rochelle Merritt on 06-09-2024 Serum or plasma urea nitrogen measurement (mass/volume) 55 mg/dL High 7-18 [facility] White blood cell (WBC) count Ordered By: Rochelle Merritt on 06-09-2024 WBC (Bld) [#/Vol] 13.4 10*3/uL High 4.4-11.0 [facility] White blood cell (WBC) count 13.4 K/mm3 High 4.4-11.0 [facility] Basic Metabolic Profile (BMP )on 06-08-2024 BUN/CRE 21.3 RATIO High 10-20 [facility] Comment on above: Performed By: #### L 500.2500 ####[facility] [address] [place], [address] CA,Total 8.8 mg/dL Normal 8.5-10.1 [facility] Comment on above: Performed By: #### L 500.2500 ####[facility] [address] [place], [address] Chloride [Moles/Vol] 101 mmol/L Normal 98-107 [facility] Comment on above: Performed By: #### L 500.2500 ####[facility] [address] [place], [address] CO2 [Moles/Vol] 24.0 mmol/L Normal 21.0-32.0 [facility] Comment on above: Performed By: #### L 500.2500 ####[facility] [address] [place], [address] Creatinine [Mass/Vol] 2.58 mg/dL High 0.55-1.02 [facility] Comment on above: Result Comment: The validity of the calculated GFR GFRAA in patients over70 years has not been determined. Clinical correlation isessential. Performed By: #### L 500.2500 ####[facility] [address] [place], [address] ECRCL 17.99 ml/min Normal [facility] Comment on above: Performed By: #### L 500.2500 ####[facility] [address] [place], [address] EST GFR - AA 23 mL/min Low >60 [facility] Comment on above: Result Comment: Afri can Martiniquais GFR Calc Performed By: #### L 500.2500 ####[facility] [address] [place], [address] GAP 9 Normal 5-15 [facility] Comment on above: Performed By: #### L 500.2500 ####[facility] [address] [place], [address] GFR/1.73 sq M.predicted among non-blacks MDRD (S/P/Bld) [Vol rate/Area] 19 mL/min/{1.73_m2} Low >60 [facility] Comment on above: Result Comment: Non- GFR Calc Performed By: #### L 500.2500 ####[facility] [address] [place], [address] Glucose [Mass/Vol] 136 mg/dL High 74-106 [facility] Comment on above: Result Comment: Fast ing Glucose result greater than or equal to 126 mg/dLsuggests DIABETES MELLITUS per A.D.A. criteria. Performed By: #### L 500.2500 ####[facility] [address] [place], [address] Potassium [Moles/Vol] 5.2 mmol/L High 3.5-5.1 [facility] Comment on above: Performed By: #### L 500.2500 ####[facility] [address] [place], [address] Sodium [Moles/Vol] 134 mmol/L Low 136-145 [facility] Comment on above: Performed By: #### L 500.2500 ####[facility] [address] [place], [address] Urea nitrogen [Mass/Vol] 55 mg/dL High 7-18 [facility] Comment on above: Performed By: #### L 500.2500 ####[facility] [address] [place], [address] Prothrombin Time w/INRon INR Coag (PPP) [Relative time] 2.1 {INR} Normal [facility] Comment on above: Performed By: #### L 300.3900 ####[facility] [address] [place], [address] PT Coag (PPP) [Time] 23.6 s High 11.7-14.9 [facility] Comment on above: Performed By: #### L 300.3900 ####[facility] [address] [place], [address] Basic Metabolic Profile (BMP )on 06-07-2024 BUN/CRE 20.6 RATIO High 10-20 [facility] Comment on above: Performed By: #### L 500.2500 ####[facility] [address] [place], [address] CA,Total 9.1 mg/dL Normal 8.5-10.1 [facility] Comment on above: Performed By: #### L 500.2500 ####[facility] [address] [place], [address] Chloride [Moles/Vol] 99 mmol/L Normal 98-107 [facility] Comment on above: Performed By: #### L 500.2500 ####[facility] [address] [place], [address] CO2 [Moles/Vol] 29.0 mmol/L Normal 21.0-32.0 [facility] Comment on above: Performed By: #### L 500.2500 ####[facility] [address] [place], [address] Creatinine [Mass/Vol] 2.43 mg/dL High 0.55-1.02 [facility] Comment on above: Result Comment: The validity of the calculated GFR GFRAA in patients over70 years has not been determined. Clinical correlation isessential. Performed By: #### L 500.2500 ####[facility] [address] [place], [address] ECRCL 19.10 ml/min Normal [facility] Comment on above: Performed By: #### L 500.2500 ####[facility] [address] [place], [address] EST GFR - AA 25 mL/min Low >60 [facility] Comment on above: Result Comment: Afri can Martiniquais GFR Calc Performed By: #### L 500.2500 ####[facility] [address] [place], [address] GAP 7 Normal 5-15 [facility] Comment on above: Performed By: #### L 500.2500 ####[facility] [address] [place], [address] GFR/1.73 sq M.predicted among non-blacks MDRD (S/P/Bld) [Vol rate/Area] 21 mL/min/{1.73_m2} Low >60 [facility] Comment on above: Result Comment: Non- GFR Calc Performed By: #### L 500.2500 ####[facility] [address] [place], [address] Glucose [Mass/Vol] 124 mg/dL High 74-106 [facility] Comment on above: Result Comment: Fast ing Glucose result from 100 to 125 mg/dLsuggests IMPAIRED HOMEOSTASIS per A.D.A. criteria. Performed By: #### L 500.2500 ####[facility] [address] [place], [address] Potassium [Moles/Vol] 5.0 mmol/L Normal 3.5-5.1 [facility] Comment on above: Performed By: #### L 500.2500 ####[facility] [address] [place], [address] Sodium [Moles/Vol] 135 mmol/L Low 136-145 [facility] Comment on above: Performed By: #### L 500.2500 ####[facility] [address] [place], [address] Urea nitrogen [Mass/Vol] 50 mg/dL High 7-18 [facility] Comment on above: Performed By: #### L 500.2500 ####[facility] [address] [place], [address] BUN/CRE 24.2 RATIO High 10-20 [facility] Comment on above: Performed By: #### L 500.2500, L100.0500 ####[facility] [address] [place], [address] CA,Total 9.4 mg/dL Normal 8.5-10.1 [facility] Comment on above: Performed By: #### L 500.2500, L100.0500 ####[facility] [address] [place], [address] Chloride [Moles/Vol] 102 mmol/L Normal 98-107 [facility] Comment on above: Performed By: #### L 500.2500, L100.0500 ####[facility] [address] [place], [address] CO2 [Moles/Vol] 25.0 mmol/L Normal 21.0-32.0 [facility] Comment on above: Performed By: #### L 500.2500, L100.0500 ####[facility] [address] [place], [address] Creatinine [Mass/Vol] 1.78 mg/dL High 0.55-1.02 [facility] Comment on above: Result Comment: The validity of the calculated GFR GFRAA in patients over70 years has not been determined. Clinical correlation isessential. Performed By: #### L 500.2500, L100.0500 ####[facility] [address] [place], [address] ECRCL 26.08 ml/min Normal [facility] Comment on above: Performed By: #### L 500.2500, L100.0500 ####[facility] [address] [place], [address] EST GFR - AA 36 mL/min Low >60 [facility] Comment on above: Result Comment: Afri can Martiniquais GFR Calc Performed By: #### L 500.2500, L100.0500 ####[facility] [address] [place], [address] GAP 7 Normal 5-15 [facility] Comment on above: Performed By: #### L 500.2500, L100.0500 ####[facility] [address] [place], [address] GFR/1.73 sq M.predicted among non-blacks MDRD (S/P/Bld) [Vol rate/Area] 29 mL/min/{1.73_m2} Low >60 [facility] Comment on above: Result Comment: Non- GFR Calc Performed By: #### L 500.2500, L100.0500 ####[facility] [address] [place], [address] Glucose [Mass/Vol] 137 mg/dL High 74-106 [facility] Comment on above: Result Comment: Fast ing Glucose result greater than or equal to 126 mg/dLsuggests DIABETES MELLITUS per A.D.A. criteria. Performed By: #### L 500.2500, L100.0500 ####[facility] [address] [place], [address] Potassium [Moles/Vol] 5.4 mmol/L High 3.5-5.1 [facility] Comment on above: Performed By: #### L 500.2500, L100.0500 ####[facility] [address] [place], [address] Sodium [Moles/Vol] 134 mmol/L Low 136-145 [facility] Comment on above: Performed By: #### L 500.2500, L100.0500 ####[facility] [address] [place], [address] Urea nitrogen [Mass/Vol] 43 mg/dL High 7-18 [facility] Comment on above: Performed By: #### L 500.2500, L100.0500 ####[facility] [address] [place], [address] CBC-Complete Blood Cnt No Di brandyon 06-07-2024 Erythrocyte distribution width (RBC) [Ratio] 15.2 % High 11.6-14.6 [facility] Comment on above: Performed By: #### L 500.2500, L100.0500 ####[facility] [address] [place], [address] Hematocrit (Bld) [Volume fraction] 33.9 % Low 37-47 [facility] Comment on above: Performed By: #### L 500.2500, L100.0500 ####[facility] [address] [place], [address] Hemoglobin (Bld) [Mass/Vol] 10.5 g/dL Low 12.0-15.0 [facility] Comment on above: Performed By: #### L 500.2500, L100.0500 ####[facility] [address] [place], [address] MCH (RBC) [Entitic mass] 28.5 pg Normal 27.0-32.0 [facility] Comment on above: Performed By: #### L 500.2500, L100.0500 ####[facility] [address] [place], [address] MCHC (RBC) [Mass/Vol] 31.0 g/dL Low 32-36 [facility] Comment on above: Performed By: #### L 500.2500, L100.0500 ####[facility] [address] [place], [address] MCV (RBC) [Entitic vol] 91.9 fL Normal 81-99 [facility] Comment on above: Performed By: #### L 500.2500, L100.0500 ####[facility] [address] [place], [address] Platelet mean volume (Bld) [Entitic vol] 11.9 fL Normal 6.2-12.0 [facility] Comment on above: Performed By: #### L 500.2500, L100.0500 ####[facility] [address] [place], [address] Platelets (Bld) [#/Vol] 170 10*3/uL Normal 150-450 [facility] Comment on above: Performed By: #### L 500.2500, L100.0500 ####[facility] [address] [place], [address] RBC (Bld) [#/Vol] 3.69 10*6/uL Low 4.2-5.4 [facility] Comment on above: Performed By: #### L 500.2500, L100.0500 ####[facility] [address] [place], [address] RDW SD 51.6 fl High 35.1-43.9 [facility] Comment on above: Performed By: #### L 500.2500, L100.0500 ####[facility] [address] [place], [address] WBC (Bld) [#/Vol] 10.9 10*3/uL Normal 4.4-11.0 [facility] Comment on above: Performed By: #### L 500.2500, L100.0500 ####[facility] [address] [place], [address] Bedside Glucoseon 06-06-2024 FINGERSTICK GLU 127 mg/dL High 74-106 [facility] Comment on above: Result Comment: ALEA YUAN OF PATIENT CARE PER NURSING PROTOCOL Performed By: #### L 501.080 ####[facility] [address] [place], [address] Decalcification bone/plaqueo n 06-06-2024 Decalcification bone/plaque Normal [facility] Comment on above: Performed By: #### P DEC ####[facility] [address] [place], [address] [facility] de[facility]dered By: Jos Mejia on 06-06-2024 Glucose [Mass/Vol] 127 mg/dL High 74-106 [facility] Glucose measurement at bedside 127 mg/dL High 74-106 [facility] MR/POSTOP.ANEon 06-06-2024 MR/POSTOP.ANE Normal [facility] MR/[id number] 06-06-2024 MR/POSTOPAN2 Normal [facility] Operative Reporton Operative Report Normal [facility] PT Coag (Bld) [Time]Ordered By: Jos Mejia on 06-06-2024 Whole blood prothrombin time 39.5 SEC High 11.7-14.9 [facility] Prothrombin Time w/INRon INR Coag (PPP) [Relative time] 1.4 {INR} Normal [facility] Comment on above: Performed By: #### L 300.3900 ####[facility] [address] [place], [address] PT Coag (PPP) [Time] 17.8 s High 11.7-14.9 [facility] Comment on above: Performed By: #### L 300.3900 ####[facility] [address] [place], [address] Protime w/INR Fingerstickon 06-06-2024 INR Coag (PPP) [Relative time] 4.1 {INR} Invalid Interpretation Code [facility] Comment on above: Result Comment: Crit ical Value > 4.0 Performed By: #### L 9200.0000 ####[facility] [address] [place], [address] Protime Coagsen 39.5 SEC High 11.7-14.9 [facility] Comment on above: Performed By: #### L 9200.0000 ####[facility] [address] [place], [address] Shoulder min 2 Viewson 06-06 Shoulder min 2 Views Normal [facility] Whole blood prothrombin time Ordered By: Jos Mejia on 06-06-2024 PT Coag (Bld) [Time] 39.5 s High 11.7-14.9 [facility] INR Coag (BldC) [Relative ti me]Ordered By: Jamie Sanford on 05-31-2024 International normalized ratio (INR) measurement by fingerstick 2.5 [facility] International normalized rat io (INR) measurement by fingerstickOrdered By: Jamie Sanford on 05-31-2024 INR Coag (BldC) [Relative time] 2.5 [facility] PT Coag (Bld) [Time]Ordered By: Jamie Sanford on 05-31-2024 Whole blood prothrombin time 26.8 SEC High 11.7-14.9 [facility] Protime w/INR Fingerstickon 05-31-2024 INR Coag (PPP) [Relative time] 2.5 {INR} Normal [facility] Comment on above: Result Comment: Crit ical Value > 4.0 Performed By: #### L 9200.0000 ####[facility] [address] [place], [address] Protime Coagsen 26.8 SEC High 11.7-14.9 [facility] Comment on above: Performed By: #### L 9200.0000 ####[facility] [address] [place], [address] Whole blood prothrombin time Ordered By: Jamie Christina on 05-31-2024 PT Coag (Bld) [Time] 26.8 s High 11.7-14.9 [facility] MR/PAT.ANEon 05-27-2024 MR/PAT.ANE Normal [facility] MRSA/SAID NASAL SCREENon MRSA+SAID SCRN Negative Normal [facility] Comment on above: Performed By: #### L 500.2500, L501.1800, L100.0100, M100.651 ####[facility] [address] [place], [address] Albumin [Mass/Vol]Ordered By : Jos Mejia on 05-10-2024 Serum or plasma albumin measurement (mass/volume) 3.8 g/dL 3.2-5.0 [facility] Albumin, Serumon 05-10-2024 Albumin [Mass/Vol] 3.8 g/dL Normal 3.2-5.0 [facility] Comment on above: Performed By: #### L 500.2500, L501.1800, L100.0100, M100.651 ####[facility] [address] [place], [address] Basic Metabolic Profile (BMP )on 05-10-2024 BUN/CRE 22.1 RATIO High 10-20 [facility] Comment on above: Performed By: #### L 500.2500, L501.1800, L100.0100, M100.651 ####[facility] [address] [place], [address] CA,Total 9.6 mg/dL Normal 8.5-10.1 [facility] Comment on above: Performed By: #### L 500.2500, L501.1800, L100.0100, M100.651 ####[facility] [address] [place], [address] Chloride [Moles/Vol] 105 mmol/L Normal 98-107 [facility] Comment on above: Performed By: #### L 500.2500, L501.1800, L100.0100, M100.651 ####[facility] [address] [place], [address] CO2 [Moles/Vol] 32.0 mmol/L Normal 21.0-32.0 [facility] Comment on above: Performed By: #### L 500.2500, L501.1800, L100.0100, M100.651 ####[facility] [address] [place], [address] Creatinine [Mass/Vol] 1.95 mg/dL High 0.55-1.02 [facility] Comment on above: Result Comment: The validity of the calculated GFR GFRAA in patients over70 years has not been determined. Clinical correlation isessential. Performed By: #### L 500.2500, L501.1800, L100.0100, M100.651 ####[facility] [address] [place], [address] EST GFR - AA 32 mL/min Low >60 [facility] Comment on above: Result Comment: Afri can Martiniquais GFR Calc Performed By: #### L 500.2500, L501.1800, L100.0100, M100.651 ####[facility] [address] [place], [address] GAP 2 Low 5-15 [facility] Comment on above: Performed By: #### L 500.2500, L501.1800, L100.0100, M100.651 ####[facility] [address] [place], [address] GFR/1.73 sq M.predicted among non-blacks MDRD (S/P/Bld) [Vol rate/Area] 26 mL/min/{1.73_m2} Low >60 [facility] Comment on above: Result Comment: Non- GFR Calc Performed By: #### L 500.2500, L501.1800, L100.0100, M100.651 ####[facility] [address] [place], [address] Glucose [Mass/Vol] 101 mg/dL Normal 74-106 [facility] Comment on above: Result Comment: Fast ing Glucose result from 100 to 125 mg/dLsuggests IMPAIRED HOMEOSTASIS per A.D.A. criteria. Performed By: #### L 500.2500, L501.1800, L100.0100, M100.651 ####[facility] [address] [place], [address] Potassium [Moles/Vol] 4.8 mmol/L Normal 3.5-5.1 [facility] Comment on above: Performed By: #### L 500.2500, L501.1800, L100.0100, M100.651 ####[facility] [address] [place], [address] Sodium [Moles/Vol] 139 mmol/L Normal 136-145 [facility] Comment on above: Performed By: #### L 500.2500, L501.1800, L100.0100, M100.651 ####[facility] [address] [place], [address] Urea nitrogen [Mass/Vol] 43 mg/dL High 7-18 [facility] Comment on above: Performed By: #### L 500.2500, L501.1800, L100.0100, M100.651 ####[facility] [address] [place], [address] CBC W/Diff, Automatedon 12- Absolute Lymph 0.71 X10 3/uL Low 0.83-4.51 [facility] Comment on above: Performed By: #### L 500.2500, L501.1800, L100.0100, M100.651 ####[facility] [address] [place], [address] Absolute Neut 5.1 X10 3/uL Normal 2.0-7.7 [facility] Comment on above: Performed By: #### L 500.2500, L501.1800, L100.0100, M100.651 ####[facility] [address] [place], [address] Basophils/100 WBC (Bld) 0.9 % Normal 0-1 [facility] Comment on above: Performed By: #### L 500.2500, L501.1800, L100.0100, M100.651 ####[facility] [address] [place], [address] Eosinophils/100 WBC (Bld) 1.7 % Normal 0-5 [facility] Comment on above: Performed By: #### L 500.2500, L501.1800, L100.0100, M100.651 ####[facility] [address] [place], [address] Erythrocyte distribution width (RBC) [Ratio] 15.5 % High 11.6-14.6 [facility] Comment on above: Performed By: #### L 500.2500, L501.1800, L100.0100, M100.651 ####[facility] [address] [place], [address] Hematocrit (Bld) [Volume fraction] 37.5 % Normal 37-47 [facility] Comment on above: Performed By: #### L 500.2500, L501.1800, L100.0100, M100.651 ####[facility] [address] [place], [address] Hemoglobin (Bld) [Mass/Vol] 11.3 g/dL Low 12.0-15.0 [facility] Comment on above: Performed By: #### L 500.2500, L501.1800, L100.0100, M100.651 ####[facility] [address] [place], [address] IG% 0.300 Normal 0.0-0.9 [facility] Comment on above: Result Comment: IG% - Immature Granulocytes (promyelocytes, myelocytes andmetamyelocytes) > 1% indicates that a LEFT SHIFT is Present. Performed By: #### L 500.2500, L501.1800, L100.0100, M100.651 ####[facility] [address] [place], [address] Lymphocytes/100 WBC (Bld) 10.8 % Low 19-41 [facility] Comment on above: Performed By: #### L 500.2500, L501.1800, L100.0100, M100.651 ####[facility] [address] [place], [address] MCH (RBC) [Entitic mass] 27.8 pg Normal 27.0-32.0 [facility] Comment on above: Performed By: #### L 500.2500, L501.1800, L100.0100, M100.651 ####[facility] [address] [place], [address] MCHC (RBC) [Mass/Vol] 30.1 g/dL Low 32-36 [facility] Comment on above: Performed By: #### L 500.2500, L501.1800, L100.0100, M100.651 ####[facility] [address] [place], [address] MCV (RBC) [Entitic vol] 92.1 fL Normal 81-99 [facility] Comment on above: Performed By: #### L 500.2500, L501.1800, L100.0100, M100.651 ####[facility] [address] [place], [address] Monocytes/100 WBC (Bld) 8.1 % Normal 0-10 [facility] Comment on above: Performed By: #### L 500.2500, L501.1800, L100.0100, M100.651 ####[facility] [address] [place], [address] Neutrophils/100 WBC (Bld) 78.2 % High 47-70 [facility] Comment on above: Performed By: #### L 500.2500, L501.1800, L100.0100, M100.651 ####[facility] [address] [place], [address] Nucleated RBC (Bld) [#/Vol] 0 10*3/uL Normal 0-5 [facility] Comment on above: Performed By: #### L 500.2500, L501.1800, L100.0100, M100.651 ####[facility] [address] [place], [address] Platelet mean volume (Bld) [Entitic vol] 11.4 fL Normal 6.2-12.0 [facility] Comment on above: Performed By: #### L 500.2500, L501.1800, L100.0100, M100.651 ####[facility] [address] [place], [address] Platelets (Bld) [#/Vol] 224 10*3/uL Normal 150-450 [facility] Comment on above: Performed By: #### L 500.2500, L501.1800, L100.0100, M100.651 ####[facility] [address] [place], [address] RBC (Bld) [#/Vol] 4.07 10*6/uL Low 4.2-5.4 [facility] Comment on above: Performed By: #### L 500.2500, L501.1800, L100.0100, M100.651 ####[facility] [address] [place], [address] RDW SD 52.1 fl High 35.1-43.9 [facility] Comment on above: Performed By: #### L 500.2500, L501.1800, L100.0100, M100.651 ####[facility] [address] [place], [address] WBC (Bld) [#/Vol] 6.6 10*3/uL Normal 4.4-11.0 [facility] Comment on above: Performed By: #### L 500.2500, L501.1800, L100.0100, M100.651 ####[facility] [address], [address] International normalized rat io (INR) calculationOrdered By: Jamie Christina on 05-10-2024 International normalized ratio (INR) calculation 2.3 [facility] MRSA screenOrdered By: Denys Mejia on 05-10-2024 MRSA DNA JEREMIAH+probe Ql (Unsp spec) [facility] Prothrombin Time w/INRon INR Coag (PPP) [Relative time] 2.3 {INR} Normal [facility] Comment on above: Performed By: #### L 300.3900 ####[facility] [address] [place], [address] PT Coag (PPP) [Time] 25.4 s High 11.7-14.9 [facility] Comment on above: Performed By: #### L 300.3900 ####[facility] [address] [place], [address] Prothrombin timeOrdered By: Jamie Christina on 05-10-2024 Prothrombin time 25.4 SECONDS High 11.7-14.9 [facility] Serum or plasma albumin jing urement (mass/volume)Ordered By: Jos Mejia on 05-10-2024 Albumin [Mass/Vol] 3.8 g/dL 3.2-5.0 [facility] Echo Completeon 04-12-2024 Echo Complete Normal [facility] MRSA/SAID NASAL SCREENon MRSA+SAID SCRN Reason for Exam: PRE OP MRSA MRSA Negative S. AUREUS S. aureus Negative Normal [facility] Comment on above: Performed By: #### L 501.1800, L100.0100, M100.651 ####[facility] [address] [place], [address] 12 Lead EKGon 03-26-2024 12 Lead EKG Normal [facility] Albumin, Serumon 03-26-2024 Albumin [Mass/Vol] 3.7 g/dL Normal 3.2-5.0 [facility] Comment on above: Performed By: #### L 501.1800, L100.0100, M100.651 ####[facility] [address] [place], [address] CBC W/Diff, Automatedon 03-15 Absolute Lymph 0.60 X10 3/uL Low 0.83-4.51 [facility] Comment on above: Performed By: #### L 501.1800, L100.0100, M100.651 ####[facility] [address] [place], [address] Absolute Neut 5.1 X10 3/uL Normal 2.0-7.7 [facility] Comment on above: Performed By: #### L 501.1800, L100.0100, M100.651 ####[facility] [address] [place], [address] Basophils/100 WBC (Bld) 1.5 % High 0-1 [facility] Comment on above: Performed By: #### L 501.1800, L100.0100, M100.651 ####[facility] [address] [place], [address] Eosinophils/100 WBC (Bld) 3.1 % Normal 0-5 [facility] Comment on above: Performed By: #### L 501.1800, L100.0100, M100.651 ####[facility] [address] [place], [address] Erythrocyte distribution width (RBC) [Ratio] 14.6 % Normal 11.6-14.6 [facility] Comment on above: Performed By: #### L 501.1800, L100.0100, M100.651 ####[facility] [address] [place], [address] Hematocrit (Bld) [Volume fraction] 36.8 % Low 37-47 [facility] Comment on above: Performed By: #### L 501.1800, L100.0100, M100.651 ####[facility] [address] [place], [address] Hemoglobin (Bld) [Mass/Vol] 11.0 g/dL Low 12.0-15.0 [facility] Comment on above: Performed By: #### L 501.1800, L100.0100, M1.65 ####[facility] [address] [place], [address] IG% 0.100 Normal 0.0-0.9 [facility] Comment on above: Result Comment: IG% - Immature Granulocytes (promyelocytes, myelocytes andmetamyelocytes) > 1% indicates that a LEFT SHIFT is Present. Performed By: #### L 501.1800, L100.0100, .65 ####[facility] [address] [place], [address] Lymphocytes/100 WBC (Bld) 9.0 % Low 19-41 [facility] Comment on above: Performed By: #### L 501.1800, L100.0100, M100.651 ####[facility] [address] [place], [address] MCH (RBC) [Entitic mass] 27.9 pg Normal 27.0-32.0 [facility] Comment on above: Performed By: #### L 501.1800, L100.0100, M100.651 ####[facility] [address] [place], [address] MCHC (RBC) [Mass/Vol] 29.9 g/dL Low 32-36 [facility] Comment on above: Performed By: #### L 501.1800, L100.0100, M100.651 ####[facility] [address] [place], [address] MCV (RBC) [Entitic vol] 93.4 fL Normal 81-99 [facility] Comment on above: Performed By: #### L 501.1800, L100.0100, M100.651 ####[facility] [address] [place], [address] Monocytes/100 WBC (Bld) 10.5 % High 0-10 [facility] Comment on above: Performed By: #### L 501.1800, L100.0100, M100.651 ####[facility] [address] [place], [address] Neutrophils/100 WBC (Bld) 75.8 % High 47-70 [facility] Comment on above: Performed By: #### L 501.1800, L100.0100, M100.651 ####[facility] [address] [place], [address] Nucleated RBC (Bld) [#/Vol] 0 10*3/uL Normal 0-5 [facility] Comment on above: Performed By: #### L 501.1800, L100.0100, M100.651 ####[facility] [address] [place], [address] Platelet mean volume (Bld) [Entitic vol] 11.1 fL Normal 6.2-12.0 [facility] Comment on above: Performed By: #### L 501.1800, L100.0100, M100.651 ####[facility] [address] [place], [address] Platelets (Bld) [#/Vol] 263 10*3/uL Normal 150-450 [facility] Comment on above: Performed By: #### L 501.1800, L100.0100, M100.651 ####[facility] [address] [place], [address] RBC (Bld) [#/Vol] 3.94 10*6/uL Low 4.2-5.4 [facility] Comment on above: Performed By: #### L 501.1800, L100.0100, M100.651 ####[facility] [address] [place], [address] RDW SD 49.7 fl High 35.1-43.9 [facility] Comment on above: Performed By: #### L 501.1800, L100.0100, M100.651 ####[facility] [address] [place], [address] WBC (Bld) [#/Vol] 6.7 10*3/uL Normal 4.4-11.0 [facility] Comment on above: Performed By: #### L 501.1800, L100.0100, M100.651 ####[facility] [address] [place], [address] Extremity Upper without Cont raon 03-26-2024 Extremity Upper without Contra Normal [facility] International normalized rat io (INR) calculationOrdered By: Jamie Christina on 03-26-2024 International normalized ratio (INR) calculation 2.4 [facility] MRSA screenOrdered By: Denys Mejia on 03-26-2024 MRSA DNA JEREMIAH+probe Ql (Unsp spec) [facility] Magnesiumon 03-26-2024 Magnesium [Mass/Vol] 2.6 mg/dL Normal 1.6-2.6 [facility] Comment on above: Performed By: #### L 501.9520, L501.5200 ####[facility] [address] [place], [address] Magnesium measurementOrdered By: Royce Nix on 03-26-2024 Magnesium [Mass/Vol] 2.6 mg/dL 1.6-2.6 [facility] Magnesium measurement 2.6 mg/dL 1.6-2.6 [facility] Prothrombin Time w/INRon INR Coag (PPP) [Relative time] 2.4 {INR} Normal [facility] Comment on above: Performed By: #### L 300.3900 ####[facility] [address] [place], [place], [address] PT Coag (PPP) [Time] 25.8 s High 11.7-14.9 [facility] Comment on above: Performed By: #### L 300.3900 ####[facility] [address] [place], [place], [id number] Prothrombin timeOrdered By: Jamie Christina on 03-26-2024 Prothrombin time 25.8 SECONDS High 11.7-14.9 [facility] Serum or plasma thyroid stim ulating hormone (TSH) measurement (units/volume)Ordered By: Royce Nix on 03-26-2024 TSH Qn 1.880 uIU/mL 0.358-3.740 [facility] TSH QnOrdered By: Royce Nix on 03-26-2024 Serum or plasma thyroid stimulating hormone (TSH) measurement (units/volume) 1.880 uIU/mL 0.358-3.740 [facility] Thyroid Stim Hormone (TSH)on 03-26-2024 TSH 1.880 uIU/mL Normal 0.358-3.740 [facility] Comment on above: Performed By: #### L 501.9520, L501.5200 ####[facility] [address] [place], [place], [address] Emergency Department Summary on 03-14-2024 Emergency Department Summary Normal [facility] Protime w/INR Fingerstickon 03-14-2024 INR Coag (PPP) [Relative time] 3.5 {INR} Normal [facility] Comment on above: Result Comment: Crit ical Value > 4.0 Performed By: #### L 9200.0000 ####[facility] [address] [place], [address] Protime Coagsen 34.3 SEC High 11.7-14.9 [facility] Comment on above: Performed By: #### L 9200.0000 ####[facility] [address] [place], [place], [address] Protime w/INR Fingerstickon 02-12-2024 INR Coag (PPP) [Relative time] 2.4 {INR} Normal [facility] Comment on above: Result Comment: Crit ical Value > 4.0 Performed By: #### L 9200.0000 ####[facility] [address] [place], [address] Protime Coagsen 24.8 SEC High 11.7-14.9 [facility] Comment on above: Performed By: #### L 9200.0000 ####[facility] [address] [place], [place], [address] Pacemaker Checkon 01-30-2024 Pacemaker Check Normal [facility] Protime w/INR Fingerstickon 01-22-2024 INR Coag (PPP) [Relative time] 1.9 {INR} Normal [facility] Comment on above: Result Comment: Crit ical Value > 4.0 Performed By: #### L 9200.0000 ####[facility] [address] [place], [place], [address] Protime Coagsen 19.8 SEC High 11.7-14.9 [facility] Comment on above: Performed By: #### L 9200.0000 ####[facility] [address] [place], [address] TXT:Device Implant / Explant on 01-22-2024 TXT:Device Implant / Explant Normal [facility] 12 Lead EKG performed by [facility] on 01-16-2024 12 Lead EKG performed by [facility] Normal [facility] Basic Metabolic Profile (BMP )on 01-16-2024 BUN/CRE 24.2 RATIO High 10-20 [facility] Comment on above: Performed By: #### L 400.0001, L100.0500, L300.3900, L500.2500 ####[facility] [address] [place], [address] CA,Total 9.4 mg/dL Normal 8.5-10.1 [facility] Comment on above: Performed By: #### L 400.0001, L100.0500, L300.3900, L500.2500 ####[facility] [address] [place], [address] Chloride [Moles/Vol] 103 mmol/L Normal 98-107 [facility] Comment on above: Performed By: #### L 400.0001, L100.0500, L300.3900, L500.2500 ####[facility] [address] [place], [address] CO2 [Moles/Vol] 30.0 mmol/L Normal 21.0-32.0 [facility] Comment on above: Performed By: #### L 400.0001, L100.0500, L300.3900, L500.2500 ####[facility] [address] [place], [address] Creatinine [Mass/Vol] 1.65 mg/dL High 0.55-1.02 [facility] Comment on above: Result Comment: The validity of the calculated GFR GFRAA in patients over70 years has not been determined. Clinical correlation isessential. Performed By: #### L 400.0001, L100.0500, L300.3900, L500.2500 ####[facility] [address] [place], [address] EST GFR - AA 39 mL/min Low >60 [facility] Comment on above: Result Comment: Afri can Martiniquais GFR Calc Performed By: #### L 400.0001, L100.0500, L300.3900, L500.2500 ####[facility] [address] [place], [address] GAP 4 Low 5-15 [facility] Comment on above: Performed By: #### L 400.0001, L100.0500, L300.3900, L500.2500 ####[facility] [address] [place], [address] GFR/1.73 sq M.predicted among non-blacks MDRD (S/P/Bld) [Vol rate/Area] 32 mL/min/{1.73_m2} Low >60 [facility] Comment on above: Result Comment: Non- GFR Calc Performed By: #### L 400.0001, L100.0500, L300.3900, L500.2500 ####[facility] [address] [place], [address] Glucose [Mass/Vol] 87 mg/dL Normal 74-106 [facility] Comment on above: Performed By: #### L 400.0001, L100.0500, L300.3900, L500.2500 ####[facility] [address] [place], [address] Potassium [Moles/Vol] 5.0 mmol/L Normal 3.5-5.1 [facility] Comment on above: Performed By: #### L 400.0001, L100.0500, L300.3900, L500.2500 ####[facility] [address] [place], [address] Sodium [Moles/Vol] 137 mmol/L Normal 136-145 [facility] Comment on above: Performed By: #### L 400.0001, L100.0500, L300.3900, L500.2500 ####[facility] [address] [place], [address] Urea nitrogen [Mass/Vol] 40 mg/dL High 7-18 [facility] Comment on above: Performed By: #### L 400.0001, L100.0500, L300.3900, L500.2500 ####[facility] [address] [place], [address] CBC-Complete Blood Cnt No Di ffon 01-16-2024 Erythrocyte distribution width (RBC) [Ratio] 14.6 % Normal 11.6-14.6 [facility] Comment on above: Performed By: #### L 400.0001, L100.0500, L300.3900, L500.2500 ####[facility] [address] [place], [address] Hematocrit (Bld) [Volume fraction] 37.2 % Normal 37-47 [facility] Comment on above: Performed By: #### L 400.0001, L100.0500, L300.3900, L500.2500 ####[facility] [address] [place], [address] Hemoglobin (Bld) [Mass/Vol] 11.3 g/dL Low 12.0-15.0 [facility] Comment on above: Performed By: #### L 400.0001, L100.0500, L300.3900, L500.2500 ####[facility] [address] [place], [address] MCH (RBC) [Entitic mass] 28.2 pg Normal 27.0-32.0 [facility] Comment on above: Performed By: #### L 400.0001, L100.0500, L300.3900, L500.2500 ####[facility] [address] [place], [address] MCHC (RBC) [Mass/Vol] 30.4 g/dL Low 32-36 [facility] Comment on above: Performed By: #### L 400.0001, L100.0500, L300.3900, L500.2500 ####[facility] [address] [place], [address] MCV (RBC) [Entitic vol] 92.8 fL Normal 81-99 [facility] Comment on above: Performed By: #### L 400.0001, L100.0500, L300.3900, L500.2500 ####[facility] [address] [place], [address] Platelet mean volume (Bld) [Entitic vol] 11.3 fL Normal 6.2-12.0 [facility] Comment on above: Performed By: #### L 400.0001, L100.0500, L300.3900, L500.2500 ####[facility] [address] [place], [address] Platelets (Bld) [#/Vol] 208 10*3/uL Normal 150-450 [facility] Comment on above: Performed By: #### L 400.0001, L100.0500, L300.3900, L500.2500 ####[facility] [address] [place], [address] RBC (Bld) [#/Vol] 4.01 10*6/uL Low 4.2-5.4 [facility] Comment on above: Performed By: #### L 400.0001, L100.0500, L300.3900, L500.2500 ####[facility] [address] [place], [address] RDW SD 49.8 fl High 35.1-43.9 [facility] Comment on above: Performed By: #### L 400.0001, L100.0500, L300.3900, L500.2500 ####[facility] [address] [place], [address] WBC (Bld) [#/Vol] 4.9 10*3/uL Normal 4.4-11.0 [facility] Comment on above: Performed By: #### L 400.0001, L100.0500, L300.3900, L500.2500 ####[facility] [address] [place], [address] Cardiology Visit Reporton Cardiology Visit Report Normal [facility] Chest PA and Lateralon 01-15 Chest PA and Lateral Normal [facility] Pacemaker Checkon 01-16-2024 Pacemaker Check Normal [facility] Prothrombin Time w/INRon INR Coag (PPP) [Relative time] 2.2 {INR} Normal [facility] Comment on above: Performed By: #### L 400.0001, L100.0500, L300.3900, L500.2500 ####[facility] [address] [place], [address] PT Coag (PPP) [Time] 24.2 s High 11.7-14.9 [facility] Comment on above: Performed By: #### L 400.0001, L100.0500, L300.3900, L500.2500 ####[facility] [address] [place], [address] Urinalysis, Completeon 01-15 RBC 0-5 SEEN Normal 0-5 [facility] Comment on above: Order Comment: COLLE CTOR TO SPECIFY Performed By: #### L 400.0001, L100.0500, L300.3900, L500.2500 ####[facility] [address] [place], [address] BILIRUBIN URINE Negative Normal Negative [facility] Comment on above: Order Comment: COLLE CTOR TO SPECIFY Performed By: #### L 400.0001, L100.0500, L300.3900, L500.2500 ####[facility] [address] [place], [address] Clarity (U) Clear Normal Clear [facility] Comment on above: Order Comment: COLLE CTOR TO SPECIFY Performed By: #### L 400.0001, L100.0500, L300.3900, L500.2500 ####[facility] [address] [place], [address] Color (U) Yellow Normal Yellow [facility] Comment on above: Order Comment: FRANCES CTOR TO SPECIFY Performed By: #### L 400.0001, L100.0500, L300.3900, L500.2500 ####[facility] [address] [place], [address] GLUCOSE, UR Normal Normal Normal [facility] Comment on above: Order Comment: FRANCES CTOR TO SPECIFY Performed By: #### L 400.0001, L100.0500, L300.3900, L500.2500 ####[facility] [address] [place], [address] KETONE UR Negative Normal Negative [facility] Comment on above: Order Comment: FRANCES CTOR TO SPECIFY Performed By: #### L 400.0001, L100.0500, L300.3900, L500.2500 ####[facility] [address] [place], [address] LEUK ESTERASE Negative Normal Negative [facility] Comment on above: Order Comment: FRANCES CTOR TO SPECIFY Performed By: #### L 400.0001, L100.0500, L300.3900, L500.2500 ####[facility] [address] [place], [address] Nitrite Ql (U) Negative Normal Negative [facility] Comment on above: Order Comment: FRANCES CTOR TO SPECIFY Performed By: #### L 400.0001, L100.0500, L300.3900, L500.2500 ####[facility] [address] [place], [address] OCCULT BLOOD-UR 10 /ul Abnormal Negative [facility] Comment on above: Order Comment: FRANCES CTOR TO SPECIFY Performed By: #### L 400.0001, L100.0500, L300.3900, L500.2500 ####[facility] [address] [place], [address] pH UR 7.0 Normal 5.0 - 8.0 [facility] Comment on above: Order Comment: FRANCES CTOR TO SPECIFY Performed By: #### L 400.0001, L100.0500, L300.3900, L500.2500 ####[facility] [address] [place], [address] PROT DIPSTX Negative Normal Negative [facility] Comment on above: Order Comment: FRANCES CTOR TO SPECIFY Performed By: #### L 400.0001, L100.0500, L300.3900, L500.2500 ####[facility] [address] [place], [address] SP.GR. DIPSTX 1.010 Normal 1.002-1.030 [facility] Comment on above: Order Comment: FRANCES CTOR TO SPECIFY Performed By: #### L 400.0001, L100.0500, L300.3900, L500.2500 ####[facility] [address] [place], [address] UROBILI Normal Normal Normal [facility] Comment on above: Order Comment: FRANCES CTOR TO SPECIFY Performed By: #### L 400.0001, L100.0500, L300.3900, L500.2500 ####[facility] [address] [place], [address] BACTERIA 0 SEEN Normal None Seen [facility] Comment on above: Order Comment: FRANCES CTOR TO SPECIFY Performed By: #### L 400.0001, L100.0500, L300.3900, L500.2500 ####[facility] [address] [place], [address] EPI,SQUAMOUS 0 SEEN Normal 5-10 [facility] Comment on above: Order Comment: FRANCES CTOR TO SPECIFY Performed By: #### L 400.0001, L100.0500, L300.3900, L500.2500 ####[facility] [address] [place], [address] Mucus Ql (Urine sed) 0 SEEN Normal [facility] Comment on above: Order Comment: FRANCES CTOR TO SPECIFY Performed By: #### L 400.0001, L100.0500, L300.3900, L500.2500 ####[facility] [address] [place], [address] WBC 0 SEEN Normal 0-5 [facility] Comment on above: Order Comment: FRANCES CTOR TO SPECIFY Performed By: #### L 400.0001, L100.0500, L300.3900, L500.2500 ####[facility] [address] [place], [address] Protime w/INR Fingerstickon 12-22-2023 INR Coag (PPP) [Relative time] 2.8 {INR} Normal [facility] Comment on above: Result Comment: Crit ical Value > 4.0 Performed By: #### L 9200.0000 ####[facility] [address] [place], [address] Protime Coagsen 28.1 SEC High 11.7-14.9 [facility] Comment on above: Performed By: #### L 9200.0000 ####[facility] [address] [place], [address] Cardiology Visit Reporton Cardiology Visit Report Normal [facility] Pacemaker Checkon 12-12-2023 Pacemaker Check Normal [facility] Protime w/INR Fingerstickon 12-05-2023 INR Coag (PPP) [Relative time] 1.8 {INR} Normal [facility] Comment on above: Result Comment: Crit ical Value > 4.0 Performed By: #### L 9200.0000 ####[facility] [address] [place], [address] Protime Coagsen 19.5 SEC High 11.7-14.9 [facility] Comment on above: Performed By: #### L 9200.0000 ####[facility] [address] [place], [address] Capillary blood internationa l normalized ratio (INR)Ordered By: Miami Sanford on 07-19-2023 INR Coag (BldC) [Relative time] 2.4 [facility] Comment on above: Critical Value > 4.0 Whole blood prothrombin time Ordered By: Miami Sanford on 07-19-2023 PT Coag (Bld) [Time] 26.2 s 11.7-14.9 [facility] Capillary blood internationa l normalized ratio (INR)Ordered By: Miami Sanford on 06-08-2023 INR Coag (BldC) [Relative time] 2.8 [facility] Comment on above: Critical Value > 4.0 Whole blood prothrombin time Ordered By: Miami Sanford on 06-08-2023 PT Coag (Bld) [Time] 30.5 s 11.7-14.9 [facility] Basophil percentageOrdered B y: Miami Sanford on 04-19-2023 Bilirubin [Mass/Vol] 0.70 mg/dL 0.20-1.00 [facility] Comment on above: For patients on eltr ombopag therapy, use of [employer] [place] TBIL is not recommended. Cholesterol [Mass/Vol] 161 mg/dL <200 [facility] Comment on above: <200 mg/dL Desirable 200-240 mg/dL Borderline >240 mg/dL High Risk Protein [Mass/Vol] 7.1 g/dL 6.4-8.2 [facility] Triglyceride [Mass/Vol] 71 mg/dL <199 [facility] Comment on above: The drugs N-Acetylcy steine and Metamizole may falsely depress this assay.Serum Triglycerides Reference Interval Normal <150 mg/dL Borderline high 150 - 199 mg/dL High 200 - 499 mg/dL Very High > or = 500 mg/dL Direct bilirubinOrdered By: Miami Sanford on 04-19-2023 Bilirubin.direct [Mass/Vol] 0.18 mg/dL 0.00-0.30 [facility] INR in Blood by Coagulation assayOrdered By: Jamie Christina on 04-19-2023 INR Coag (Bld) [Relative time] 1.6 {INR} [facility] Laboratory - Chemistry and C hemistry - challengeOrdered By: Jamie Christina on 04-19-2023 ALP [Catalytic activity/Vol] 78 U/L 45-117 [facility] ALT [Catalytic activity/Vol] 20 U/L 13-56 [facility] Globulin (S) [Mass/Vol] 3.4 g/dL 2.2-4.2 [facility] T4 [Mass/Vol] 11.0 ug/dL 4.8-13.9 [facility] Laboratory - CoagulationOrde red By: Jamie Christina on 04-19-2023 PT Coag (PPP) [Time] 19.6 s 11.7-14.9 [facility] No Panel InformationOrdered By: Jamie Christina on 04-19-2023 Thyroid Stimulating Hormone (TSH) 0.88 uIU/mL 0.358-3.74 [facility] Serum or plasma albumin jing urement (mass/volume)Ordered By: Jamie Christina on 04-19-2023 Albumin [Mass/Vol] 3.7 g/dL 3.2-5.0 [facility] Serum or plasma cholesterol in HDL measurement (mass/volume)Ordered By: Jamie Christina on 04-19-2023 Cholesterol in HDL [Mass/Vol] 66 mg/dL >40 [facility] Comment on above: The drugs N-Acetylcy steine and Metamizole may falsely depress this assay. Reference Range HDL <40 mg/dL Low HDL Cholesterol HDL >or= 60 mg/dL High HDL Cholesterol Serum or plasma cholesterol in VLDL measurement (mass/volume)Ordered By: Jamie Christina on 04-19-2023 Cholesterol in VLDL [Mass/Vol] 14 mg/dL 5-40 [facility] Serum or plasma low density lipoprotein (LDL) cholesterol measurement (mass/volume)Ordered By: Jamie Christina on 04-19-2023 Cholesterol in LDL [Mass/Vol] 81 mg/dL 0-130 [facility] Thin prep Papanicolaou smear with manual screeningOrdered By: Jamie Christina on 04-19-2023 Thin prep Papanicolaou smear with manual screening 24 U/L 15-37 [facility] Laboratory - CoagulationOrde red By: Jamie Christina on 02-28-2023 INR Coag (Bld) [Relative time] 2.2 {INR} [facility] Comment on above: Critical Value > 4.0 Whole blood prothrombin time Ordered By: Jamie Christina on 02-28-2023 PT Coag (Bld) [Time] 24.4 s 11.7-14.9 [facility] Laboratory - CoagulationOrde red By: Jamie Christina on 02-09-2023 INR Coag (Bld) [Relative time] 3.1 {INR} [facility] Comment on above: Critical Value > 4.0 No Panel Informationon 02-09 INR International Normalized Ratio 3.1 [facility] Whole blood prothrombin time Ordered By: Jamie Christina on 02-09-2023 PT Coag (Bld) [Time] 33.6 s 11.7-14.9 [facility] Laboratory - CoagulationOrde red By: Jamei Christina on 01-20-2023 INR Coag (Bld) [Relative time] 3.4 {INR} [facility] Comment on above: Critical Value > 4.0 Whole blood prothrombin time Ordered By: Jamie Christina on 01-20-2023 PT Coag (Bld) [Time] 36.3 s 11.7-14.9 [facility] Laboratory - CoagulationOrde red By: Jamie Christina on 12-28-2022 INR Coag (Bld) [Relative time] 1.6 {INR} [facility] Comment on above: Critical Value > 4.0 Whole blood prothrombin time Ordered By: Jamie Christina on 12-28-2022 PT Coag (Bld) [Time] 17.8 s 11.7-14.9 [facility] Laboratory - CoagulationOrde red By: Miamieliazar Christina on 11-18-2022 INR Coag (Bld) [Relative time] 2.0 {INR} [facility] Comment on above: Critical Value > 4.0 Whole blood prothrombin time Ordered By: Jamie Christina on 11-18-2022 PT Coag (Bld) [Time] 21.7 s 11.7-14.9 [facility] Basophil percentageOrdered B y: Dr. Christina on 11-01-2022 Chloride [Moles/Vol] 103 mmol/L 98-107 [facility] Glucose [Mass/Vol] 91 mg/dL 74-106 [facility] Potassium [Moles/Vol] 4.8 mmol/L 3.5-5.1 [facility] Sodium [Moles/Vol] 138 mmol/L 136-145 [facility] Laboratory - Chemistry and C hemistry - challengeOrdered By: Dr. Christina on 11-01-2022 CO2 [Moles/Vol] 31.0 mmol/L 21.0-32.0 [facility] Natriuretic peptide B (Bld) [Mass/Vol] 549.2 pg/mL 0-100 [facility] Urea nitrogen/Creatinine [Mass ratio] 21.8 mg/mg 10-20 [facility] No Panel InformationOrdered By: Dr. Christina on 11-01-2022 Estimated GFR (MDRD) Amer 44 mL/min >60 [facility] Comment on above: GFR Calc Estimated GFR (MDRD) Non-Af Amer 37 mL/min >60 [facility] Comment on above: Non- GFR Calc Serum or plasma calcium jing urement (mass/volume)Ordered By: Dr. Christina on 11-01-2022 Calcium [Mass/Vol] 9.3 mg/dL 8.5-10.1 [facility] Serum or plasma creatinine m easurement (mass/volume)Ordered By: Dr. Christina on 11-01-2022 Creatinine [Mass/Vol] 1.47 mg/dL 0.55-1.02 [facility] Comment on above: The validity of the calculated GFR & GFRAA in patients over 70 years has not been determined. Clinical correlation is essential. Serum or plasma urea nitroge n measurement (mass/volume)Ordered By: Dr. Christina on 11-01-2022 Urea nitrogen [Mass/Vol] 32 mg/dL 7-18 [facility] Thin prep Papanicolaou smear with manual screeningOrdered By: Dr. Christina on 11-01-2022 Thin prep Papanicolaou smear with manual screening 4 5-15 [facility] Laboratory - CoagulationOrde red By: Dr. Christina on 10-24-2022 INR Coag (Bld) [Relative time] 1.7 {INR} [facility] Comment on above: Critical Value > 4.0 Whole blood prothrombin time Ordered By: Dr. Christina on 10-24-2022 PT Coag (Bld) [Time] 18.4 s 11.7-14.9 [facility] Laboratory - CoagulationOrde red By: Dr. Christina on 09-07-2022 INR Coag (Bld) [Relative time] 2.3 {INR} [facility] Comment on above: Critical Value > 4.0 Whole blood prothrombin time Ordered By: Dr. Christina on 09-07-2022 PT Coag (Bld) [Time] 25.5 s 11.7-14.9 [facility] Laboratory - CoagulationOrde red By: Dr. Christina on 08-04-2022 INR Coag (Bld) [Relative time] 2.1 {INR} [facility] Comment on above: Critical Value > 4.0 Whole blood prothrombin time Ordered By: Dr. Christina on 08-04-2022 PT Coag (Bld) [Time] 25.2 s 11.7-14.9 [facility] Laboratory - CoagulationOrde red By: Dr. Christina on 06-21-2022 INR Coag (Bld) [Relative time] 2.2 {INR} [facility] Comment on above: Critical Value > 4.0 Whole blood prothrombin time Ordered By: Dr. Christina on 06-21-2022 PT Coag (Bld) [Time] 25.6 s 11.7-14.9 [facility] Laboratory - CoagulationOrde red By: Dr. Christina on 06-09-2022 INR Coag (Bld) [Relative time] 3.2 {INR} [facility] Comment on above: Critical Value > 4.0 Whole blood prothrombin time Ordered By: Dr. Christina on 06-09-2022 PT Coag (Bld) [Time] 36.6 s 11.7-14.9 [facility] Basophil percentageOrdered B y: Dr. Christina on 03-15-2022 Bilirubin [Mass/Vol] 0.60 mg/dL 0.20-1.00 [facility] Comment on above: For patients on eltr ombopag therapy, use of [employer] [place] TBIL is not recommended. Chloride [Moles/Vol] 105 mmol/L 98-107 [facility] Cholesterol [Mass/Vol] 171 mg/dL <200 [facility] Comment on above: <200 mg/dL Desirable 200-240 mg/dL Borderline >240 mg/dL High Risk Glucose [Mass/Vol] 92 mg/dL 74-106 [facility] Potassium [Moles/Vol] 4.5 mmol/L 3.5-5.1 [facility] Protein [Mass/Vol] 7.1 g/dL 6.4-8.2 [facility] Sodium [Moles/Vol] 140 mmol/L 136-145 [facility] Triglyceride [Mass/Vol] 65 mg/dL <199 [facility] Comment on above: The drugs N-Acetylcy steine and Metamizole may falsely depress this assay.Serum Triglycerides Reference Interval Normal <150 mg/dL Borderline high 150 - 199 mg/dL High 200 - 499 mg/dL Very High > or = 500 mg/dL Direct bilirubinOrdered By: Dr. Christina on 03-15-2022 Bilirubin.direct [Mass/Vol] 0.18 mg/dL 0.00-0.30 [facility] INR in Blood by Coagulation assayOrdered By: Dr. Christina on 03-15-2022 INR Coag (Bld) [Relative time] 2.2 {INR} [facility] Laboratory - Chemistry and C hemistry - challengeOrdered By: Dr. Christina on 03-15-2022 ALP [Catalytic activity/Vol] 82 U/L 45-117 [facility] ALT [Catalytic activity/Vol] 22 U/L 13-56 [facility] CO2 [Moles/Vol] 29.0 mmol/L 21.0-32.0 [facility] Globulin (S) [Mass/Vol] 3.4 g/dL 2.2-4.2 [facility] Urea nitrogen/Creatinine [Mass ratio] 22.0 mg/mg 10-20 [facility] Laboratory - CoagulationOrde red By: Dr. Christina on 03-15-2022 PT Coag (PPP) [Time] 24.4 s 11.7-14.9 [facility] No Panel InformationOrdered By: Dr. Christina on 03-15-2022 Estimated GFR (MDRD) Amer 47 mL/min >60 [facility] Comment on above: GFR Calc Estimated GFR (MDRD) Non-Af Amer 39 mL/min >60 [facility] Comment on above: Non- GFR Calc Thyroid Stimulating Hormone (TSH) 2.28 uIU/mL 0.358-3.74 [facility] Serum or plasma albumin jing urement (mass/volume)Ordered By: Dr. Christina on 03-15-2022 Albumin [Mass/Vol] 3.7 g/dL 3.2-5.0 [facility] Serum or plasma calcium jing urement (mass/volume)Ordered By: Dr. Christina on 03-15-2022 Calcium [Mass/Vol] 9.3 mg/dL 8.5-10.1 [facility] Serum or plasma cholesterol in HDL measurement (mass/volume)Ordered By: Dr. Christina on 03-15-2022 Cholesterol in HDL [Mass/Vol] 79 mg/dL >40 [facility] Comment on above: The drugs N-Acetylcy steine and Metamizole may falsely depress this assay. Reference Range HDL <40 mg/dL Low HDL Cholesterol HDL >or= 60 mg/dL High HDL Cholesterol Serum or plasma cholesterol in VLDL measurement (mass/volume)Ordered By: Dr. Christina on 03-15-2022 Cholesterol in VLDL [Mass/Vol] 13 mg/dL 5-40 [facility] Serum or plasma creatinine m easurement (mass/volume)Ordered By: Dr. Christina on 03-15-2022 Creatinine [Mass/Vol] 1.41 mg/dL 0.55-1.02 [facility] Comment on above: The validity of the calculated GFR & GFRAA in patients over 70 years has not been determined. Clinical correlation is essential. Serum or plasma low density lipoprotein (LDL) cholesterol measurement (mass/volume)Ordered By: Dr. Christina on 03-15-2022 Cholesterol in LDL [Mass/Vol] 79 mg/dL 0-130 [facility] Serum or plasma urea nitroge n measurement (mass/volume)Ordered By: Dr. Christina on 03-15-2022 Urea nitrogen [Mass/Vol] 31 mg/dL 7-18 [facility] Thin prep Papanicolaou smear with manual screeningOrdered By: Dr. Christina on 03-15-2022 Thin prep Papanicolaou smear with manual screening 24 U/L 15-37 [facility] Thin prep Papanicolaou smear with manual screening 6 5-15 [facility] Laboratory - Coagulationon 0 02-03-2022 INR Coag (Bld) [Relative time] 2.6 {INR} [facility] Work Phone: Comment on above: Critical Value > 4.0 Whole blood prothrombin time on 02-03-2022 PT Coag (Bld) [Time] 30.4 s 11.7-14.9 [facility] Work Phone: Laboratory - Coagulationon 0 12-22-2021 INR Coag (Bld) [Relative time] 2.6 {INR} [facility] Work Phone: Comment on above: Critical Value > 4.0 Whole blood prothrombin time on 12-22-2021 PT Coag (Bld) [Time] 29.8 s 11.7-14.9 [facility] Work Phone: Laboratory - Coagulationon 0 10-20-2021 INR Coag (Bld) [Relative time] 2.8 {INR} [facility] Work Phone: Comment on above: Critical Value > 4.0 Whole blood prothrombin time on 10-20-2021 PT Coag (Bld) [Time] 32.4 s 11.7-14.9 [facility] Work Phone: Laboratory - Coagulationon 0 08-31-2021 INR Coag (Bld) [Relative time] 2.2 {INR} [facility] Work Phone: Comment on above: Critical Value > 4.0 Whole blood prothrombin time on 08-31-2021 PT Coag (Bld) [Time] 25.8 s 11.7-14.9 [facility] Work Phone: Laboratory - Coagulationon 0 07-20-2021 INR Coag (Bld) [Relative time] 2.4 {INR} [facility] Work Phone: Comment on above: Critical Value > 4.0 Whole blood prothrombin time on 07-20-2021 PT Coag (Bld) [Time] 27.6 s 11.7-14.9 [facility] Work Phone: Laboratory - Coagulationon 0 05-20-2021 INR Coag (Bld) [Relative time] 3.0 {INR} [facility] Work Phone: Comment on above: Critical Value > 4.0 Whole blood prothrombin time on 05-20-2021 PT Coag (Bld) [Time] 32.7 s 11.9-14.4 [facility] Work Phone: Basophil percentageon 2020 Creatinine [Mass/Vol] 0.9 mg/dL 0.55-1.02 [facility] Work Phone: No Panel Informationon 04-21 Bedside Estimated GFR (eGFR) > 60.0000 mL/min >60 [facility] Work Phone: CNOVon 04-10-2018 CNOV Office Visit (ORMDNA) JAUN BAKER ([id number]) 1945 FDate Time Provider Ulqucdkofd37/27/18 1:15 PM FEDE DUONG During your visit today, we recorded the following information about you: Pulse Blood pressure Weight 83/minute 107/75 75.7 kgSabrina Ocasio, RN, RN 04/26/2018 5:32 PM SignedAMB ROOMING INTAKE FLOWSHEET DATARisk ScreeningDo you have concerns about personal safety or safety in the home?: NoPainPain Score: (0-7)Pain Location: Knee-LeftDescription: SharpDuration Amount of Time: 1.5Duration Units: MonthsFrequency: IntermittentInterventio n: Heat, Cold, Medication (tylenol at HS )Comments: elevationPatient presents with:New Patient: left knee pain, xraypatient is here for left knee pain, she completed xray. Patient states pain hasbeen going on for 1.5 months. Patient has been taking tylenol, ice and usingheat as well as elevating. Patient walks twice a day. Pain is located inlateral part of knee. .China Daly MD 04/26/2018 5:32 PM SignedFede Duong [facility]ITALepartment [facility] OrthopaedicsOrthopaedic [address] [facility] [address]Gcyq: [phone] 2017CHIEF COMPLAINT: New Patient (left knee pain, xray)HPI: Ms. Jaun Chambers is a 72 year old female who presents with someproblems with her left knee. She has a known history of arthritis that hasmostly bother her a bit on the inner portion of the knee, however the outerportion of the knee has been giving her more trouble even up to a 7 out of 10pain at times. It is intermittent. She didn't think some Tylenol and icingit. She does enjoy going for a short walk twice a day and she has beencontinuing to do this despite the discomfort.ASSESSMENT:M 25.562, G89.29 Chronic pain of left knee (primary encounter diagnosis)M17.12 Primary osteoarthritis of left kneePLAN:Are going to try a short course of anti-inflammatory. A cortisone injectionmay be appropriate at some point.FOLLOW UP INSTRUCTIONS:As aboveMs. Jaun Chambers was advised as to contrast therapies and/or to takeanalgesics/anti-inf lammatories as needed and all contraindications werereviewed.OBJECTIVE: Ms. Jaun Chambers is a pleasant 72 year old in no apparent distress.Gen:BP 107/75 Pulse 83 Wt 166 lb 12.8 oz (75.7kg) nl development, nonobese, no deformitiesENT: Normocephalic, normal hearing, moist mucosaCV: Pulses:DP/PT= 2+ and symmetric, capillary refill < 2 secs, no peripheraledema/varicos itiesSkin: no rash, bruising or lesions. Good turgor.Psych: cooperative and appropriate, alert and oriented x 3, good mood andaffect.Musculoskelet al:Patient walks with mild antalgia, normal station. Hip motion without pain.Knee without effusion. Patella tracks normally. There is no patellarcrepitance. No pain along the medial or lateral facets. Range of motion 0?130degrees. Mild medial and lateral joint line pain on palpation. Ligamentousexam stable on varus and valgus stress testing at 0 and 30 degrees. Javy'sexamination is negative. Posterior drawer is negative. Negative McMurrays,without palpable click. Extremity is warm and well perfused. Sensation isgrossly intact to light touch, subjectively.IMAGING:IM PRESSION:MEDIAL COMPARTMENT PREDOMINANT DEGENERATIVE CHANGES OF THE LEFT KNEE.Senior Litigation Paralegal: DYLANB ?Transcribe Date/Time: Apr 11 2018 ?7:16ADictated by : EVANGELIST GUNTER MDThis examination was interpreted and the report reviewed andelectronically signed by:EVANGELIST GUNTER MD on Apr 11 2018 ?7:18AM ?ESTResults-Findings* * *Final Report* * *DATE OF EXAM: Apr 10 2018 12:43PM ?O ? 5202 ?- ?XR KNEE 4V AP/PA BOTH+LAT/BRAULIO LT ?/ REASON: P86-Acuy?? ?* * * * Physician Interpretation * * * *?EXAMINATION: ?XR KNEE 4V AP/PA BOTH+LAT/BRAULIO LTHISTORY: ? LT KNEE ?PAIN ?Pain ? .TECHNIQUE: ?XR KNEE 4V AP/PA BOTH+LAT/BRAULIO LT?? Laterality: ?LEFT?? Number of different views (projections): 4?? M: ?XB_1COMPARISON: ?06/24/2014.RESULT:There is no acute fracture or subluxation. There is moderate joint spacenarrowing of the medial compartment, slightly progressed since priorexam. There is also mild joint space narrowing of the lateralcompartment. Tricompartmental osteophytes. There is no joint effusion. Nolytic or blastic osseous lesion. The soft tissues are grossly.Note is made of mild degenerative changes of the right knee. There is anbenign-appearing fibro-osseous lesion in distal right femur.Supporting Subjective Information Below:Past Medical History:PAST MEDICAL HISTORYDiagnosis Date- Arrhythmia diagnosed with CHF 3 years ago- Macular degeneration (senile) of retina, unspecified- Senile cataract, unspecified- Thyroid disorder- Unspecified keratitisPast Surgical History:PAST SURGICAL HISTORYProcedure Laterality Date- CARDIOVERSION x8- HEMORRHOID;BAND LIGAT, SNGL/MUL 1977 Hemorrhoidectomy- HYSTERECTOMY HX 1994- KNEE ARTHROSCOPY/SURGERY 1987- [place] ANESTH,PACEMAKER INSERTION Permanent Pacemaker defibrillatior- last time replaced was in 2011- pacemaker- SINGLE OBLATION 1999Family History:FAMILY HISTORYProblem Relation Age of Onset- Heart Father- Cancer Mother- Cancer Sister- Heart Daughter- Heart SonSocial History:Social History Marital status: Spouse name: Years of education: Number of children:Social History Main Topics Smoking status: Former Smoker Packs/day: 2.00 Years: 0.00 Types: Cigarettes Quit date: 05/19/1989 Smokeless tobacco: Never Used Alcohol use: No Drug use: NoMedications:Current Outpatient Prescriptions:spironola ctone (ALDACTONE) 25 mg tablet Take 25 mg by mouth once daily. t dailycholecalciferol (VITAMIN D) 1,000 unit tab tablet Take 1,000 Units by mouthonce daily.warfarin (COUMADIN) 5 mg tabletLevothyroxine 125 mcg cap Take 75 mcg by mouth. 75 mcg alternating with 100 mcgVERAPAMIL HCL 100 mg 24 hr capsuleFUROSEMIDE 20 mg ORAL tablet 40 mg twice daily.diazepam 5 mg ORAL tablet Take 5 mg by mouth at bedtime as needed.fluticasone (FLONASE) 50 mcg/actuation NASAL nasal spray Use 1 [place] in eachnostril once daily.aspirin, enteric coated (ASPIR-81) 81 mg EC tablet Take 1 tablet by mouth oncedaily.COMPOUNDED PRESCRIPTION Areds eye vitamin 120mg PO twice dailyNo current facility-administered medications for this visit.Allergies: Actonel [Risedronate]; Amoxicillin; PrednisoloneROS:General (negative for fatigue, malaise, weight loss/gain)HEENT (negative for headache, earache, recent vision changes, sinus pain, sorethroat) Respiratory (no recent shortness of breath, hemoptysis)CV (negative for chest tightness, palpitations)Musculoske letal (see HPI)Psych (no depression, anxiety)REFERRING PHYSICIAN: Ms. Jaun Chambers was referred to me for consultation bythe following physician. This consultation note will be sent to the followingphysician by either mail or electronic medical record.SELFSusuleman Sol MD[address] [place] [address]Isyf note was partially generated using Orteq voice recognition system, andthere may be some incorrect words, spellings, and punctuation that were notnoted in checking the note before saving.Fede Duong, MDReferring Provider: SELF [200]Allergies As of Date: 04/10/2018 Noted Allergy ReactionACTONEL (RISEDRONATE) 09/06/2011 2 - RashAMOXICILLIN 09/06/2011 2 - RashPREDNISOLONE 09/06/2011 12 - Shortness of Breath 14 - Other: See Comments Comments: Affects baseline a-fibbDate Reviewed: 04/10/2018Reviewed by: eFde Duong - Fully AssessedReason for Visit: New Patient [172] Cmt: left knee pain, xrayReason For Visit History RecordedPrimary Visit Diagnosis:Chronic pain of left knee [M25.562, G89.29] Other Visit Diagnosis:Primary osteoarthritis of left knee [M17.12]Order(s):meloxi cam (MOBIC) 15 mg tabletTake 1 tablet by mouth once daily.Disp: 10 tabletRfl: 0Prescriptions as of 04/10/2018 Sig: CHOLECALCIFEROL (VITAMIN D3) * Take 1,000 Units by mouth onc* * DIAZEPAM 5 MG TABLET Take 5 mg by mouth at bedtime* * FLUTICASONE 50 MCG/ACTUATION * Use 1 [place] in each nostril o* * FUROSEMIDE 20 [...] TABLET Take 1 tablet by mouth once d*Problem List As Of Date 04/10/2018 Noted Resolved Arthritis of knee [M17.10] INVALID FOR* Age-related macular degeneration, dry, both eye*INVALID FOR* Lumbar radicular pain [M54.16] INVALID FOR* Lumbago [M54.5] INVALID FOR* Left-sided low back pain without sciatica [M54.*INVALID FOR*Prescriptions ordered this encounter Disp Refills Start End MELOXICAM 15 MG TABLET 10 t* 0 04/10/2018 Route: ORAL Sig: Take 1 tablet by mouth once daily. Status:Closed by FEDE DUONG MD on 04/26/18 Normal [facility] PROGRESSon 04-10-2018 Protein mass conc HNO ID: [id number]: Sanjuanita (Ct) DOMINIQUE Gutierrezervice: (none)Author Type: Clinical TechnicianType: Progress NotesFiled: 04/10/2018 2:46 PMNote Text:NAME:Jaun ChambersDATE: April 10, 2018CCF#: [id number] Extremity X-Ray(s): Knee, AP / Lat / Tunne / Merchant Left and Wt.Bearing COMPLETEDTECH ID SIGN: SOFIA [facility] Protein mass conc HNO ID: [id number]: Fede Saldaña: (none)Author Type: PhysicianType: Progress NotesFiled: 04/26/2018 5:32 PMNote Text:Fede Duong [facility]ITALepartment of OrthopaedicsOrthopaedic [address] [facility] [address]Ualc: [phone] 2017CHIEF COMPLAINT: New Patient (left knee pain, xray)HPI: Ms. Jaun Chambers is a 72 year old female who presents with someproblems with her left knee. She has a known history of arthritis thathas mostly bother her a bit on the inner portion of the knee, however theouter portion of the knee has been giving her more trouble even up to a 7out of 10 pain at times. It is intermittent. She didn't think someTylenol and icing it. She does enjoy going for a short walk twice a dayand she has been continuing to do this despite the discomfort.ASSESSMENT:M 25.562, G89.29 Chronic pain of left knee (primary encounter diagnosis)M17.12 Primary osteoarthritis of left kneePLAN:Are going to try a short course of anti-inflammatory. A cortisoneinjection may be appropriate at some point.FOLLOW UP INSTRUCTIONS:As aboveMs. Jaun Chambers was advised as to contrast therapies and/or to takeanalgesics/anti-inf lammatories as needed and all contraindications werereviewed.OBJECTIVE: Ms. Jaun Chambers is a pleasant 72 year old in no apparent distress.Gen:BP 107/75 Pulse 83 Wt 166 lb 12.8 oz (75.7kg) nl development, nonobese, no deformitiesENT: Normocephalic, normal hearing, moist mucosaCV: Pulses:DP/PT= 2+ and symmetric, capillary refill < 2 secs, noperipheral edema/varicositiesSkin: no rash, bruising or lesions. Good turgor.Psych: cooperative and appropriate, alert and oriented x 3, good mood andaffect.Musculoskelet al:Patient walks with mild antalgia, normal station. Hip motion without pain. Knee without effusion. Patella tracks normally. There is no patellarcrepitance. No pain along the medial or lateral facets. Range of motion0?130 degrees. Mild medial and lateral joint line pain on palpation.Ligamentous exam stable on varus and valgus stress testing at 0 and 30degrees. Javy's examination is negative. Posterior drawer isnegative. Negative McMurrays, without palpable click. Extremity is warmand well perfused. Sensation is grossly intact to light touch,subjectively.IMAG ING:IMPRESSION:MEDIAL COMPARTMENT PREDOMINANT DEGENERATIVE CHANGES OF THE LEFT KNEE.Senior Litigation Paralegal: PERI ?Transcribe Date/Time: Apr 11 2018 ?7:16ADictated by : EVANGELIST GUNTER MDThis examination was interpreted and the report reviewed andelectronically signed by:EVANGELIST GUNTER MD on Apr 11 2018 ?7:18AM ?ESTResults-Findings* * *Final Report* * *DATE OF EXAM: Apr 10 2018 12:43PM ?MDO ? 5202 ?- ?XR KNEE 4V AP/PA BOTH+LAT/BRAULIO LT ?/ REASON: Y10-Xovw?? ?* * * * Physician Interpretation * * * *?EXAMINATION: ?XR KNEE 4V AP/PA BOTH+LAT/BRAULIO LTHISTORY: ? LT KNEE ?PAIN ?Pain ? .TECHNIQUE: ?XR KNEE 4V AP/PA BOTH+LAT/BRAULIO LT?? Laterality: ?LEFT?? Number of different views (projections): 4?? M: ?XB_1COMPARISON: ?06/24/2014.RESULT:There is no acute fracture or subluxation. There is moderate joint spacenarrowing of the medial compartment, slightly progressed since priorexam. There is also mild joint space narrowing of the lateralcompartment. Tricompartmental osteophytes. There is no joint effusion. Nolytic or blastic osseous lesion. The soft tissues are grossly.Note is made of mild degenerative changes of the right knee. There is anbenign-appearing fibro-osseous lesion in distal right femur.Supporting Subjective Information Below:Past Medical History:PAST MEDICAL HISTORYDiagnosis Date- Arrhythmia diagnosed with CHF 3 years ago- Macular degeneration (senile) of retina, unspecified- Senile cataract, unspecified- Thyroid disorder- Unspecified keratitisPast Surgical History:PAST SURGICAL HISTORYProcedure Laterality Date- CARDIOVERSION x8- HEMORRHOID;BAND LIGAT, SNGL/MUL 1978 Hemorrhoidectomy- HYSTERECTOMY HX 1994- KNEE ARTHROSCOPY/SURGERY 1987- [place] ANESTH,PACEMAKER INSERTION Permanent Pacemaker defibrillatior- last time replaced was in 2011-pacemaker- SINGLE OBLATION 1999Family History:FAMILY HISTORYProblem Relation Age of Onset- Heart Father- Cancer Mother- Cancer Sister- Heart Daughter- Heart SonSocial History:Social History Marital status: Spouse name: Years of education: Number of children:Social History Main Topics Smoking status: Former Smoker Packs/day: 2.00 Years: 0.00 Types: Cigarettes Quit date: 05/19/1989 Smokeless tobacco: Never Used Alcohol use: No Drug use: NoMedications:Current Outpatient Prescriptions:spironola ctone (ALDACTONE) 25 mg tablet Take 25 mg by mouth once daily.1/2 tablet dailycholecalciferol (VITAMIN D) 1,000 unit tab tablet Take 1,000 Units bymouth once daily.warfarin (COUMADIN) 5 mg tabletLevothyroxine 125 mcg cap Take 75 mcg by mouth. 75 mcg alternating [id number] mcgVERAPAMIL HCL 100 mg 24 hr capsuleFUROSEMIDE 20 mg ORAL tablet 40 mg twice daily.diazepam 5 mg ORAL tablet Take 5 mg by mouth at bedtime as needed.fluticasone (FLONASE) 50 mcg/actuation NASAL nasal spray Use 1 [place] ineach nostril once daily.aspirin, enteric coated (ASPIR-81) 81 mg EC tablet Take 1 tablet by mouthonce daily.COMPOUNDED PRESCRIPTION Areds eye vitamin 120mg PO twice dailyNo current facility-administered medications for this visit.Allergies: Actonel [Risedronate]; Amoxicillin; PrednisoloneROS:General (negative for fatigue, malaise, weight loss/gain)HEENT (negative for headache, earache, recent vision changes, sinus pain,sore throat) Respiratory (no recent shortness of breath, hemoptysis)CV (negative for chest tightness, palpitations)Musculoske letal (see HPI)Psych (no depression, anxiety)REFERRING PHYSICIAN: Ms. Jaun Chambers was referred to [place] forconsultation by the following physician. This consultation note will besent to the following physician by either mail or electronic medicalrecord.Autumn Sol MD[address] [place] [address]Vyqj note was partially generated using Orteq voice recognition system,and there may be some incorrect words, spellings, and punctuation thatwere not noted in checking the note before saving.Fede Duong MD [facility] Protein mass conc HNO ID: [id number]: Sabrina (Rn)(Hist) MAYTE Ocasioervice: (none)Author Type: Registered NurseType: Progress NotesFiled: 04/26/2018 5:32 PMNote Text:AMB ROOMING INTAKE FLOWSHEET DATARisk ScreeningDo you have concerns about personal safety or safety in the home?: NoPainPain Score: (0-7)Pain Location: Knee-LeftDescription: SharpDuration Amount of Time: 1.5Duration Units: MonthsFrequency: IntermittentInterventio n: Heat, Cold, Medication (tylenol at HS )Comments: elevationPatient presents with:New Patient: left knee pain, xraypatient is here for left knee pain, she completed xray. Patient statespain has been going on for 1.5 months. Patient has been taking tylenol,ice and using heat as well as elevating. Patient walks twice a day. Painis located in lateral part of knee. .Sabrina Ocasio RN [facility] XR KNEE 4V AP/PA BOTH+LAT/ME R LTon 04-10-2018 XR KNEE 4V AP/PA BOTH+LAT/BRAULIO LT * * *Final Report* * *DATE OF EXAM: Apr 10 2018 12:43PM STACI 5202 - XR KNEE 4V AP/PA BOTH+LAT/BRAULIO LT / REASON: B44-Comv * * * * Physician Interpretation * * * * EXAMINATION: XR KNEE 4V AP/PA BOTH+LAT/BRAULIO LTHISTORY: LT KNEE PAIN Pain .TECHNIQUE: XR KNEE 4V AP/PA BOTH+LAT/BRAULIO LT Laterality: LEFT Number of different views (projections): 4 M: XB_1COMPARISON: 06/24/2014.RESULT:There is no acute fracture or subluxation. There is moderate joint space narrowing of the medial compartment, slightly progressed since prior exam. There is also mild joint space narrowing of the lateral compartment. Tricompartmental osteophytes. There is no joint effusion. No lytic or blastic osseous lesion. The soft tissues are grossly.Note is made of mild degenerative changes of the right knee. There is an benign-appearing fibro-osseous lesion in distal right femur.IMPRESSION:MEDIAL COMPARTMENT PREDOMINANT DEGENERATIVE CHANGES OF THE LEFT KNEE.Senior Litigation Paralegal: PERI Transcribe Date/Time: Apr 11 2018 7:16ADictated by : EVANGELIST GUNTER MDThis examination was interpreted and the report reviewed and electronically signed by: EVANGELIST GUNTER MD on Apr 11 2018 7:18AM [id number] CN [facility] US DVT LOWER LTon 09-29-2017 US DVT LOWER LT * * *Final Report* * *DATE OF EXAM: Sep 29 2017 1:16PM TARA 1006 - US DVT LOWER LT / REASON: leg cramp (R25.2) * * * * Physician Interpretation * * * * Duplex imaging with color flow Doppler and spectral analysis left Lower extremity:HISTORY: 71 years oldClinical information: leg cramp (R25.2)TECHNIQUE:Both paul scale with and without compression, spectral and color Doppler exams were performed.Images stored and permanent archive.Comparison: NoneRESULT:Findings: The deep venous system was evaluated from the level of the external iliac vein to level the trifurcation below the knee. There was good compressibility of the deep venous structures. There was spontaneity of flow, phasicity of flow and augmentation demonstrated in the deep vessels.Below the knee, the portions of the posterior tibial and peroneal veins were only segmentally visualized. The portions which were visualized appeared unremarkable.Doppler analysis: Color flow Doppler demonstrated blood flow the to be in the appropriate direction. Spectral analysis showed normal response at rest and with compression maneuvers.IMPRESSION:No evidence of deep venous thrombosisTranscription ist: PSCB Transcribe Date/Time: Sep 29 2017 1:19PDictated by : Harpreet MEDINA examination was interpreted and the report reviewed and electronically signed by: RASHEED CALVILLO DO on Sep 29 2017 1:19PM [id number] [facility] 07-20-2017 CNCO HNO ID: [id number]: Mammography CoordinatorService: (none)Author Type: PhysicianType: LetterFiled: 07/24/2017 11:31 PMNote Text:July 20, 2017 PID: [id number] M. [address] [place] [id number] Ms. Chambers,We are pleased to inform you that the results of your recent breastimaging exam on 07/18/2017 are normal. Early detection of cancer is veryimportant. We also understand recommendations regarding breast cancerscreening are controversial. Please discuss with your primary careprovider which strategy is best for you and whether a mammogram is rightfor you.Your imaging studies and report will be kept on file at [facility] part of your permanent medical record and are available for yourcontinuing care.Thank you for allowing us to help in meeting your health care needs.Sincerely,Dr. CalvilloInterpreting [facility]. (Normal over 40) [facility] SCREENINGon 07-18-2017 [facility] SCREENING * * *Final Report* * *DATE OF EXAM: Jul 18 2017 9:26AM ASIF 0581 - [facility] SCREENING / REASON: SCREENING * * * * Physician Interpretation * * * * #[id number] - [facility]BY SCREENINGBILATERAL DIGITAL SCREENING MAMMOGRAM WITH CAD: 07/18/2017HISTORY: Screening /Screening Mammogram - patient reports NO symptoms.RESULT:TECHNIQ UE: The study was acquired using full field digital technology and interpreted from soft copy.Current study was also evaluated with a Computer Aided Detection (CAD).Comparison is made to exam dated: 08/12/2014 mammogram - [facility].There are scattered fibroglandular elements in both breasts.There are benign calcifications in both breasts.No significant masses, calcifications, or other findings are seen in either breast.There has been no significant interval change.IMPRESSION: BENIGN FINDINGThere is no mammographic evidence of malignancy. A 1 year screening mammogram is recommended.Rasheed Simmons/emilio:07/20/2017 10:38:10Imaging Technologist: Vicky VELÁZQUEZ)(Marvin), [facility] Normal over 40Mammogram BI-RADS: 2 Benign findingTranscriptionist : EmilioTranscribkade Date/Time: Jul 18 2017 9:16ADictated by : Harpreet MEDINA examination was interpreted and the report reviewed and electronically signed by: RASHEED CALVILLO DO on Jul 20 2017 10:38AM [id number] CN Normal [facility] Vital Signs Date Time Vital Sign Value Performing Clinician Claudiai jeanine 12-02-2024 21:00-0400 Body temperature 97.2 [degF] Dr. Humaira Churchill MD Work Phone: [facility] 12-02-2024 21:00-0400 Diastolic blood pressure 106 mm[Hg] Dr. Humaira Churchill MD Work Phone: [facility] 12-02-2024 21:00-0400 Heart rate 82 /min Dr. Humaira Churchill MD Work Phone: [facility] 12-02-2024 21:00-0400 Respiratory rate 22 /min Dr. Humaira Churchill MD Work Phone: [phone] [place] [address] 12-02-2024 21:00-0400 SaO2% (BldA) [Mass fraction] 96 % Dr. Humaira Churchill MD Work Phone: [facility] 12-02-2024 21:00-0400 Systolic blood pressure 141 mm[Hg] Dr. Humaira Churchill MD Work Phone: [facility] 12-02-2024 17:26-0400 Body height 165.[address] Humaira Churchill MD Work Phone: [phone])260-8177[address] [place] [address] 12-02-2024 17:26-0400 Body mass index (BMI) [Ratio] 32.8 kg/m2 Dr. Humaira Churchill MD Work Phone: [phone])005-064111 [place] [address] 12-02-2024 17:26-0400 Body weight 89.[address] Humaira Churchill MD Work Phone: [phone])221-018111 [place] [address] 11-07-2024 10:38-0400 Body height 165.[address] Humaira Churchill MD Work Phone: [phone] [place] [address] 11-07-2024 10:38-0400 Body mass index (BMI) [Ratio] 29.2 kg/m2 Dr. Humaira Churchill MD Work Phone: [facility] 11-07-2024 10:38-0400 Body weight 79.[address] Humaira Churchill MD Work Phone: [facility] 11-07-2024 10:38-0400 Diastolic blood pressure 64 mm[Hg] Dr. Humaira Churchill MD Work Phone: [facility] 11-07-2024 10:38-0400 Heart rate 84 /min Dr. Humaira Churchill MD Work Phone: [facility] 11-07-2024 10:38-0400 Respiratory rate 20 /min Dr. Humaira Churchill MD Work Phone: [facility] 11-07-2024 10:38-0400 Systolic blood pressure 99 mm[Hg] Dr. Humaira Churchill MD Work Phone: [facility] 09-25-2024 11:42-0400 Diastolic blood pressure 55 mm[Hg] Dr. Jamie Christina MD Work Phone: [facility] 09-25-2024 11:42-0400 Heart rate 82 /min Dr. Jamie Christina MD Work Phone: [facility] 09-25-2024 11:42-0400 Systolic blood pressure 91 mm[Hg] Dr. Jamie Christina MD Work Phone: [facility] 09-25-2024 11:26-0400 Body height 165.[address] Jamie Christina MD Work Phone: [facility] 09-25-2024 11:26-0400 Body mass index (BMI) [Ratio] 29.4 kg/m2 Dr. Jamie Christina MD Work Phone: [facility] 09-25-2024 11:26-0400 Body weight 80.[address] Jamie Christina MD Work Phone: [facility] 09-25-2024 11:26-0400 Respiratory rate 20 /min Dr. Jamie Christina MD Work Phone: [facility] 07-12-2024 08:00-0500 Body height 165.[address] Jamie Christina MD Work Phone: [facility] 07-12-2024 08:00-0500 Body mass index (BMI) [Ratio] 27.9 kg/m2 Dr. Jamie Christina MD Work Phone: [facility] 07-12-2024 08:00-0500 Body weight 76.[address] Jamie Christina MD Work Phone: [facility] 07-12-2024 08:00-0500 Diastolic blood pressure 63 mm[Hg] Dr. Jamie Christina MD Work Phone: [facility] 07-12-2024 08:00-0500 Heart rate 83 /min Dr. Jamie Christina MD Work Phone: [facility] 07-12-2024 08:00-0500 Respiratory rate 18 /min Dr. Jamie Christina MD Work Phone: [facility] 07-12-2024 08:00-0500 SaO2% (BldA) [Mass fraction] 94 % Dr. Jamie Christina MD Work Phone: [facility] 07-12-2024 08:00-0500 Systolic blood pressure 103 mm[Hg] Dr. Jamie Christina MD Work Phone: [facility] 06-25-2024 11:45-0500 Body temperature 97.5 [degF] Dr. Jamie Christina MD Work Phone: [facility] 06-25-2024 11:45-0500 Diastolic blood pressure 58 mm[Hg] Dr. Jamie Christina MD Work Phone: [facility] 06-25-2024 11:45-0500 Heart rate 82 /min Dr. Jamie Christina MD Work Phone: [facility] 06-25-2024 11:45-0500 Respiratory rate 16 /min Dr. Jamie Christina MD Work Phone: [facility] 06-25-2024 11:45-0500 SaO2% (BldA) [Mass fraction] 98 % Dr. Jamie Christina MD Work Phone: [facility] 06-25-2024 11:45-0500 Systolic blood pressure 101 mm[Hg] Dr. Jamie Christina MD Work Phone: [facility] 06-25-2024 05:09-0500 Body mass index (BMI) [Ratio] 28.7 kg/m2 Dr. Jamie Christina MD Work Phone: [facility] 06-25-2024 05:09-0500 Body weight 78.[address] Jamie Christina MD Work Phone: [facility] 06-24-2024 05:00-0500 Inhaled oxygen flow rate 2 L/min Dr. Jamie Christina MD Work Phone: [facility] 06-09-2024 14:19-0500 Body temperature 98.2 [degF] Dr. Jamie Christina MD Work Phone: [facility] 06-09-2024 14:19-0500 Diastolic blood pressure 49 mm[Hg] Dr. Jamie Christina MD Work Phone: [facility] 06-09-2024 14:19-0500 Heart rate 77 /min Dr. Jamie Christina MD Work Phone: [facility] 06-09-2024 14:19-0500 Respiratory rate 18 /min Dr. Jamie Christina MD Work Phone: [facility] 06-09-2024 14:19-0500 SaO2% (BldA) [Mass fraction] 93 % Dr. Jamie Christina MD Work Phone: [facility] 06-09-2024 14:19-0500 Systolic blood pressure 91 mm[Hg] Dr. Jamie Christina MD Work Phone: [facility] 06-09-2024 07:41-0500 Inhaled oxygen flow rate 2 L/min Dr. Jamie Christina MD Work Phone: [facility] 06-06-2024 10:49-0500 Body mass index (BMI) [Ratio] 28 kg/m2 Dr. Jamie Christina MD Work Phone: [facility] 06-06-2024 10:49-0500 Body weight [address] Jamie Christina MD Work Phone: [facility] 05-15-2024 05:10-0500 Body mass index (BMI) [Ratio] 28.8 kg/m2 Dr. Jamie Christina MD Work Phone: [facility] 04-13-2024 22:40-0500 Body mass index (BMI) [Ratio] 28.8 kg/m2 Dr. Jamie Christina MD Work Phone: [facility] 03-14-2024 21:07-0400 Body mass index (BMI) [Ratio] 28.8 kg/m2 Dr. Jamie Christina MD Work Phone: [facility] 06-14-2023 23:38-0500 Body mass index (BMI) [Ratio] 28.8 kg/m2 Dr. Humaira Churchill Work Phone: [facility] 06-08-2023 10:38-0500 Body height 165.[address] Humaira Churchill Work Phone: [facility] 06-08-2023 10:38-0500 Body mass index (BMI) [Ratio] 27.4 kg/m2 Dr. Humaira Churchill Work Phone: [facility] 06-08-2023 10:38-0500 Body weight 74.[address] Humaira Churchill Work Phone: [facility] 06-08-2023 10:38-0500 Diastolic blood pressure 64 mm[Hg] Dr. Humaira Churchill Work Phone: [facility] 06-08-2023 10:38-0500 Heart rate 74 /min Dr. Humaira Churchill Work Phone: [facility] 06-08-2023 10:38-0500 Respiratory rate 16 /min Dr. Humaira Churchill Work Phone: [facility] 06-08-2023 10:38-0500 Systolic blood pressure 101 mm[Hg] Dr. Humaira Churchlil Work Phone: [facility] 05-14-2023 23:30-0500 Body mass index (BMI) [Ratio] 28.8 kg/m2 Dr. Humaira Churchill Work Phone: [facility] 03-14-2023 23:08-0400 Body mass index (BMI) [Ratio] 28.8 kg/m2 Dr. Humaira Churchill Work Phone: [facility] 02-12-2023 04:59-0400 Body mass index (BMI) [Ratio] 28.8 kg/m2 Dr. Humaira Churchill Work Phone: [facility] 01-13-2023 01:59-0400 Body mass index (BMI) [Ratio] 28.8 kg/m2 Dr. Humaira Churchill Work Phone: [facility] 12-13-2022 02:20-0400 Body mass index (BMI) [Ratio] 28.8 kg/m2 Dr. Humaira Churchill Work Phone: [phone] [address] 11-12-2022 02:32-0400 Body mass index (BMI) [Ratio] 28.8 kg/m2 Dr. Humaira Churchill Work Phone: [phone])[phone] [address] 11-01-2022 08:59-0400 Body height 165.[address] Humaira Churchill Work Phone: [phone])[phone] [place] [address] 11-01-2022 08:59-0400 Body mass index (BMI) [Ratio] 28.1 kg/m2 Dr. Humaira Churchill Work Phone: [phone])[phone] [address] 11-01-2022 08:59-0400 Body weight 76.[address] Humaira Churchill Work Phone: [facility] 11-01-2022 08:59-0400 Diastolic blood pressure 62 mm[Hg] Dr. Humaira Churchill Work Phone: [facility] 11-01-2022 08:59-0400 Heart rate 74 /min Dr. Humaria Churchill Work Phone: [phone] [address] 11-01-2022 08:59-0400 Respiratory rate 18 /min Dr. Humaira Churchill Work Phone: [facility] 11-01-2022 08:59-0400 Systolic blood pressure 94 mm[Hg] Dr. Humaira Churchill Work Phone: [facility] 09-11-2022 05:20-0400 Body mass index (BMI) [Ratio] 28.8 kg/m2 Dr. Humaira Churchill Work Phone: [facility] 08-12-2022 20:53-0400 Body mass index (BMI) [Ratio] 28.8 kg/m2 Dr. Humaira Churchill Work Phone: [facility] 07-12-2022 23:16-0500 Body mass index (BMI) [Ratio] 28.8 kg/m2 Dr. Humaira Churchill Work Phone: [facility] 06-15-2022 07:47-0500 Body mass index (BMI) [Ratio] 28.8 kg/m2 Dr. Humaira Churchill Work Phone: [facility] 04-16-2022 09:02-0500 Body height 165.[address] Humaira Churchill Work Phone: [facility] 04-16-2022 09:02-0500 Body mass index (BMI) [Ratio] 29.9 kg/m2 Dr. Humaira Churchill Work Phone: [facility] 04-16-2022 09:02-0500 Body temperature 98.3 [degF] Dr. Humaira Churchill Work Phone: [facility] 04-16-2022 09:02-0500 Body weight 81.[address] Humaira Churchill Work Phone: [facility] 04-16-2022 09:02-0500 Diastolic blood pressure 65 mm[Hg] Dr. Humaira Churchill Work Phone: [facility] 04-16-2022 09:02-0500 Heart rate 101 /min Dr. Huamira Churchill Work Phone: [facility] 04-16-2022 09:02-0500 Respiratory rate 14 /min Dr. Humaira Churchill Work Phone: [facility] 04-16-2022 09:02-0500 SaO2% (BldA) [Mass fraction] 95 % Dr. Humaira Churchill Work Phone: [facility] 04-16-2022 09:02-0500 Systolic blood pressure 101 mm[Hg] Dr. Humaira Churchill Work Phone: [facility] 04-14-2022 02:25-0500 Body mass index (BMI) [Ratio] 28.8 kg/m2 Dr. Humaira Churchill Work Phone: [facility] 04-05-2022 08:59-0500 Body height 165.[address] Humaira Churchill Work Phone: [facility] Work Phone: 04-05-2022 08:59-0500 Body mass index (BMI) [Ratio] 28.1 kg/m2 Dr. Humaira Churchill Work Phone: [facility] 04-05-2022 08:59-0500 Body weight 76.[address] Humaira Churchill Work Phone: [facility] 04-05-2022 08:59-0500 Diastolic blood pressure 69 mm[Hg] Dr. Humaira Churchill Work Phone: [facility] 04-05-2022 08:59-0500 Heart rate 86 /min Dr. Humaira Churchill Work Phone: [facility] 04-05-2022 08:59-0500 Respiratory rate 16 /min Dr. Humaira Churchill Work Phone: [facility] 04-05-2022 08:59-0500 SaO2% (BldA) [Mass fraction] 99 % Dr. Humaira Churchill Work Phone: [facility] 04-05-2022 08:59-0500 Systolic blood pressure 102 mm[Hg] Dr. Humaira Churchill Work Phone: [facility] 02-12-2022 01:50-0400 Body mass index (BMI) [Ratio] 28.8 kg/m2 Dr. Humaira Churchill Work Phone: [facility] 01-13-2022 01:00-0400 Body mass index (BMI) [Ratio] 28.8 kg/m2 Dr. Humaira Churchill Work Phone: [facility] Work Phone: 11-12-2021 08:16-0400 Body mass index (BMI) [Ratio] 28.8 kg/m2 Dr. Humaira Churchill Work Phone: [facility] Work Phone: 09-21-2021 10:44-0400 Body height 165.[address] Humaira Churchill Work Phone: [facility] Work Phone: 09-21-2021 10:44-0400 Body mass index (BMI) [Ratio] 28.4 kg/m2 Dr. Humaira Churchill Work Phone: [facility] Work Phone: 09-21-2021 10:44-0400 Body weight 77.[address] Humaira Churchill Work Phone: [facility] Work Phone: 09-21-2021 10:44-0400 Diastolic blood pressure 71 mm[Hg] Dr. Humaira Churchill Work Phone: [facility] Work Phone: 09-21-2021 10:44-0400 Heart rate 82 /min Dr. Humaira Churchill Work Phone: [facility] Work Phone: 09-21-2021 10:44-0400 Respiratory rate 18 /min Dr. Humaira Churchill Work Phone: [facility] Work Phone: 09-21-2021 10:44-0400 SaO2% (BldA) [Mass fraction] 95 % Dr. Humaira Churchill Work Phone: [facility] Work Phone: 09-21-2021 10:44-0400 Systolic blood pressure 108 mm[Hg] Dr. Humaira Churchill Work Phone: [facility] Work Phone: 09-21-2021 10:44-0400 Body height 165.[address] Humaira Churchill Work Phone: [facility] Work Phone: 09-21-2021 10:44-0400 Body mass index (BMI) [Ratio] 28.4 kg/m2 Dr. Humaira Churchill Work Phone: [facility] Work Phone: 09-21-2021 10:44-0400 Body weight 77.[address] Humaira Churchill Work Phone: [facility] Work Phone: 09-21-2021 10:44-0400 Diastolic blood pressure 71 mm[Hg] Dr. Humaira Churchill Work Phone: [facility] Work Phone: 09-21-2021 10:44-0400 Heart rate 82 /min Dr. Humaira Churchill Work Phone: [facility] Work Phone: 09-21-2021 10:44-0400 Respiratory rate 18 /min Dr. Humaira Churchill Work Phone: [facility] Work Phone: 09-21-2021 10:44-0400 SaO2% (BldA) [Mass fraction] 95 % Dr. Humaira Churchill Work Phone: [facility] Work Phone: 09-21-2021 10:44-0400 Systolic blood pressure 108 mm[Hg] Dr. Humaira Churchill Work Phone: [facility] Work Phone: 09-12-2021 05:29-0400 Body mass index (BMI) [Ratio] 28.8 kg/m2 Dr. Humaira Churchill Work Phone: [facility] Work Phone: 08-13-2021 03:01-0400 Body mass index (BMI) [Ratio] 28.8 kg/m2 Dr. Humaira Churchill Work Phone: [facility] Work Phone: 06-15-2021 00:47-0500 Body mass index (BMI) [Ratio] 28.8 kg/m2 Dr. Humaira Churchill Work Phone: [facility] Work Phone: 04-14-2021 03:10-0500 Body mass index (BMI) [Ratio] 28.8 kg/m2 Dr. Humaira Churchill Work Phone: [facility] Work Phone: 11-12-2020 10:55-0400 Body mass index (BMI) [Ratio] 28.8 kg/m2 Dr. Humaira Churchill Work Phone: [facility] Work Phone: Encounters Encounter Date Encounter Type Care Provider Facility Start: 12-02-2024 Evaluation and management of inpatient Dr. Randall Stoddard MD -Progressive Care Unit Work Phone: Start: 11-07-2024 End: 11-07-2024 Patient encounter procedure León LONDON -[facility] Work Phone: Start: 11-07-2024 End: 11-07-[address] Humaira Churchill MD Work Phone: [facility] Work Phone: Start: 10-27-2024 End: 10-27-[address] Humaira Churchill MD Work Phone: -[facility] Start: 10-27-2024 End: 10-27-[address] Jamie Christina MD -[facility] Work Phone: Start: 10-21-2024 End: 10-21-[address] Humaira Churchill MD Work Phone: [facility] Work Phone: Start: 10-21-2024 End: 10-21-[address] Jamie Christina MD -[facility] Work Phone: Start: 10-08-2024 End: 10-08-2024 Patient encounter procedure Sergio Robert [facility] Work Phone: Start: 10-08-2024 End: 10-08-2024 Sergio Robert [facility] Work Phone: Start: 10-08-2024 End: 10-08-[address] Humaira Churchill MD Work Phone: [facility] Work Phone: Start: 2024 End: [address] Humaira Churchill MD Work Phone: [facility] Work Phone: Start: 2024 End: 2024 Patient encounter procedure León Erickson [employer] [facility] -Laboratory [place] Work Phone: Start: 2024 End: 2024 León Erickson [employer] [facility] -[facility] [place] Work Phone: Start: 2024 End: 2024 ambulatory Humaira Churchill Facility:[facility] Start: 09-25-2024 End: 09-25-[address] Humaira Churchill MD Work Phone: [facility] Work Phone: Start: 09-25-2024 End: 09-25-2024 Patient encounter procedure León Erickson [employer] [facility]C -Radiology [facility] Work Phone: Start: 09-25-2024 End: 09-25-2024 León Erickson [employer] [facility]C -Radiology [facility] Work Phone: Start: 09-25-2024 End: 09-25-2024 Patient encounter procedure León Erickson [employer]C -[facility] Work Phone: Start: 09-25-2024 End: 09-25-2024 León LONDON -[facility] Work Phone: Start: 09-25-2024 End: 09-25-[address] Jamie Christina MD Work Phone: [facility] Work Phone: Start: 09-25-2024 End: 09-25-2024 ambulatory Humaira Churchill Facility:[facility] Start: 08-30-2024 End: 08-30-[address] Humaira Churchill MD -Laboratory [facility] Start: 08-30-2024 End: 08-30-2024 Dr. Humaira Churchill MD -Laboratory, [facility] Start: 08-30-2024 End: 08-30-2024 ambulatory Humaira Churchill Facility:[facility] Start: 08-03-2024 End: 08-03-2024 ambulatory Humaira Churchill Facility:[facility] Start: 08-03-2024 End: 08-03-[address] Jamie Christina MD -[facility] Work Phone: Start: 08-03-2024 End: 08-03-2024 Dr. Jamie Christina MD -[facility] Work Phone: Start: 07-29-2024 End: 07-29-2024 ambulatory Humaira Churchill Facility:[facility] Start: 07-29-2024 End: 07-29-[address] Jamie Christina MD -[facility] Work Phone: Start: 07-29-2024 End: 07-29-2024 Dr. Jamie Christina MD -[facility] Work Phone: Start: 07-12-2024 End: 07-12-[address] Humaira Churchill MD Work Phone: [facility] Work Phone: Start: 07-12-2024 End: 07-12-[address] Humaira Churchill MD -Laboratory Work Phone: Start: 07-12-2024 End: 07-12-2024 Dr. Humaira Churchill MD -Laboratory Work Phone: Start: 07-12-2024 End: 07-12-2024 Patient encounter procedure Sergio Jones [facility] Work Phone: Start: 07-12-2024 End: 07-12-2024 Sergiodevorah Jones [facility] Work Phone: Start: 07-12-2024 End: 07-12-2024 ambulatory Sergio Robert Facility:[facility] Start: 07-12-2024 End: 07-12-2024 ambulatory Humaira Churchill Facility:[facility] Start: 07-09-2024 End: 07-09-[address] Jamie Christina MD Work Phone: [facility] Work Phone: Start: 07-09-2024 End: 07-09-[address] Humaira Churchill MD -Laboratory [place] Work Phone: Start: 07-09-2024 End: 07-09-2024 [facility] Start: 07-09-2024 End: 07-09-2024 ambulatory Humaira Churchill Facility:[facility] Start: 07-02-2024 End: 07-02-[address] Humaira Churchill MD -Laboratory [facility] Start: 07-02-2024 End: 07-02-2024 Dr. Humaira Churchill MD -Laboratory, [facility] Start: 07-02-2024 End: 07-02-2024 ambulatory Humaira Churchill Facility:[facility] Start: 06-25-2024 Dr. Jos Infante MD -[facility] Work Phone: Start: 06-24-2024 Dr. Jos Infante MD -[facility] Work Phone: Start: 06-24-2024 Dr. Pascual Cruz DO [facility] Start: 06-23-2024 Dr. Cornelio [facility]icon[facility] Work Phone: Start: 06-22-2024 Sergio [facility] Start: 06-22-2024 Dr. Cornelio Licona [facility] Work Phone: Start: 06-21-2024 Sergio [facility] Start: 06-21-2024 [facility] Start: 06-21-2024 ambulatory Humaira S Jolliff Facility: [facility] Start: 06-21-2024 ambulatory Humaira S Jolliff Facility: [facility] Start: 06-21-2024 End: 06-25-2024 Evaluation and management of inpatient Jos Infante Facility:[facility] Start: 06-21-2024 End: 06-25-2024 Dr. Jos Infante MD -Intensive Care Unit Work Phone: Start: 06-15-2024 ambulatory Humaira S Jolliff Facility: [facility] Start: 06-13-2024 End: 06-13-2024 Dr. Randall Stoddard MD -Laboratory, [facility] Work Phone: Start: 06-13-2024 End: 06-13-2024 ambulatory Humaira S Jolliff Facility:[facility] Start: 06-11-2024 Encounter for other preprocedural examination Rochelle Merritt [facility] Start: 06-09-2024 Dr. Rochelle veliz MD -[facility] Work Phone: Start: 06-08-2024 Dr. Rochelle veliz MD -[facility] Work Phone: Start: 06-07-2024 ambulatory Jos Spittle Facili ty:[facility] Start: 06-07-2024 End: 06-09-2024 Evaluation and management of inpatient Jos Spittle Facility:[facility] Start: 06-07-2024 End: 06-09-2024 Dr. Jos Mejia DO -[facility] 3 Work Phone: Start: 06-07-2024 Dr. Rochelle veliz MD -[facility] Work Phone: Start: 06-06-2024 Dr. Rochelle veliz MD -[facility] Work Phone: Start: 06-06-2024 ambulatory Rochelle Merritt Facility :[facility] Start: 05-31-2024 End: 05-31-2024 Dr. Jamie Christina MD -Laboratory, [facility] Work Phone: Start: 05-31-2024 End: 05-31-2024 ambulatory Joann Correa PA Facility:[facility] Start: 05-13-2024 Encounter for other preprocedural examination Joann RENE [facility] Start: 05-10-2024 End: 05-10-2024 Dr. Jamie Christina MD -Laboratory, [facility] Work Phone: Start: 05-10-2024 End: 05-10-2024 ambulatory Joann Correa PA Facility:[facility] Start: 04-28-2024 End: 04-28-2024 ambulatory Humaira S Jolliff Facility:[facility] Start: 04-28-2024 End: 04-28-2024 Dr. Jamie Christina MD -[facility] Work Phone: Start: 04-12-2024 ambulatory Humaira S Jolliff Facility: [facility] Start: 04-12-2024 End: 04-12-2024 Dr. Jamie Christina MD -[facility] Start: 04-12-2024 End: 04-12-2024 ambulatory Joann Correa PA Facility:[facility] Start: 04-08-[address] Jamie Christina MD Work Phone: [facility] Start: 03-26-2024 End: 04-13-2024 Dr. Jamie Christina MD -Laboratory Work Phone: Start: 03-26-2024 End: 04-13-2024 ambulatory Joann RENE Facility:[facility] Start: 03-26-2024 End: 03-26-2024 ambulatory Jos Mejia Facility:[facility] Start: 03-14-2024 End: 03-14-2024 Emergency department patient visit Humaira S Zhao Facility:[facility] Start: 03-14-2024 End: 03-14-2024 ambulatory Humaira S Jolliff Facility:[facility] Start: 02-12-2024 End: 02-12-2024 ambulatory Humaira S Jolliff Facility:[facility] Start: 01-30-2024 End: 01-30-2024 ambulatory Humaira S Jolliff Facility:[facility] Start: 01-22-2024 ambulatory Humaira S Jolliff Facility: [facility] Start: 01-22-2024 End: 01-22-2024 ambulatory Humaira S Jolliff Facility:[facility] Start: 01-16-2024 End: 01-16-2024 ambulatory Humaira S Jolliff Facility:[facility] Start: 12-22-2023 End: 12-22-2023 ambulatory Humaira S Jolliff Facility:[facility] Start: 12-12-2023 End: 12-12-2023 ambulatory Humaira S Jolliff Facility:[facility] Start: 12-05-2023 End: 12-13-2023 ambulatory Jamie Christina Facility:[facility] Start: 08-16-2023 End: 08-16-[address] Humaira Churchill Work Phone: [facility] Work Phone: Start: 08-16-2023 End: 08-16-[address] Humaira Churchill Work Phone: [facility] Work Phone: Start: 07-19-2023 End: 08-13-[address] Humaira Churchill Work Phone: [facility] Work Phone: Start: 07-19-2023 End: 08-13-[address] Humaira Churchill Work Phone: [facility] Work Phone: Start: 06-08-2023 End: 06-08-[address] Humaira Churchill Work Phone: [facility] Work Phone: Start: 06-08-2023 End: 06-08-[address] Humaira Churchill Work Phone: [facility] Work Phone: Start: 06-08-2023 End: 06-08-[address] Humaira Churchill Work Phone: [facility] Work Phone: Start: 04-19-2023 End: 05-14-[address] Humaira Churchill Work Phone: [facility] Work Phone: Start: 04-19-2023 End: 05-14-[address] Humaira Churchill Work Phone: [facility] Work Phone: Start: 02-28-2023 End: 02-28-[address] Humaira Churchill Work Phone: [facility] Work Phone: Start: 02-28-2023 End: 02-28-[address] Humaira Churchill Work Phone: [facility] Work Phone: Start: 02-09-2023 Non-patient / Non-visit Dr. Alexander Churchill Work Phone: [facility] Work Phone: Start: 02-09-2023 End: 02-09-[address] Humaira Churchill Work Phone: [facility] Work Phone: Start: 02-09-2023 End: 02-09-[address] Humaira Churchill Work Phone: [facility] Work Phone: Start: 12-28-2022 End: 12-28-[address] Humaira Churchill Work Phone: [facility] Work Phone: Start: 12-28-2022 End: 12-28-[address] Humaira Churchill Work Phone: [facility] Work Phone: Start: 11-18-2022 End: 12-12-[address] Humaira Churchill Work Phone: [facility] Work Phone: Start: 11-18-2022 End: 12-12-[address] Humaira Churchill Work Phone: [facility] Work Phone: Start: 11-01-2022 End: 11-01-[address] Humaira Churchill Work Phone: [facility] Work Phone: Start: 11-01-2022 End: 11-01-[address] Humaira Churchill Work Phone: [facility] Start: 11-01-2022 End: 11-01-[address] Humaira Churchill Work Phone: [facility] Start: 10-24-2022 End: 10-24-[address] Humaira Churchill Work Phone: [facility] Work Phone: Start: 10-24-2022 End: 10-24-[address] Humaira Churchill Work Phone: [facility] Work Phone: Start: 10-24-[address] Humaira krishna Work Phone: [facility] Start: 09-07-2022 End: 09-11-[address] Humaira Churchill Work Phone: [facility] Work Phone: Start: 09-07-2022 End: 09-11-[address] Humaira Churchill Work Phone: [facility] Start: 08-04-2022 End: 08-12-[address] uHmaira Churchill Work Phone: [facility] Start: 06-21-2022 End: 06-21-[address] Humaira Churchill Work Phone: [facility] Work Phone: Start: 06-21-2022 End: 06-21-[address] Humaira Churchill Work Phone: [facility] Start: 06-09-2022 End: 06-09-[address] Humaira Churchill Work Phone: [facility] Work Phone: Start: 06-09-2022 End: 06-09-[address] Hmuaira Churchill Work Phone: [facility] Start: 06-02-2022 End: 06-02-[address] Humaira Churchill Work Phone: [facility] Start: 04-16-2022 End: 04-16-2022 Emergency department patient visit Dr. Humaira Churchill Work Phone: [facility]Emergency Department Start: 04-08-2022 End: 04-08-[address] Humaira Churchill Work Phone: [facility] Work Phone: Start: 04-08-2022 End: 04-08-[address] Humaira Churchill Work Phone: [facility] Start: 04-05-2022 End: 04-05-[address] Humaira Churchill Work Phone: [facility] Start: 03-15-2022 End: 04-13-[address] Humaira Churchill Work Phone: [facility] Work Phone: Start: 03-15-2022 End: 04-13-[address] Humaira Churchill Work Phone: [facility] Start: 02-03-2022 End: 02-03-[address] Humaira Churchill Work Phone: [facility] Work Phone: Start: 02-03-2022 End: 02-03-[address] Humaira Churchill Work Phone: [facility] Start: 12-22-2021 End: 12-22-[address] Humaira Churchill Work Phone: [facility] Work Phone: Start: 12-22-2021 End: 12-22-[address] Humaira Churchill Work Phone: [facility] Start: 11-30-2021 End: 11-30-[address] Humaira Churchill Work Phone: [facility] Start: 10-20-2021 End: 11-11-[address] Humaira Churchill Work Phone: [facility] Start: 10-12-2021 Non-patient / Non-visit Dr. Alexander Churchill Work Phone: [facility] Start: 10-12-2021 End: 10-12-[address] Humaira Churchill [facility] Start: 09-21-2021 End: 09-21-[address] Humaira Churchill Work Phone: [facility] Start: 08-31-2021 End: 08-31-[address] Humaira Churchill Work Phone: [facility] Start: 07-20-2021 End: 08-12-[address] Humaira Churchill Work Phone: [facility] Start: 06-01-2021 End: 06-01-[address] Humaira Churchill Work Phone: [facility] Start: 05-20-2021 End: 06-14-[address] Humaira Churchill Work Phone: [facility] Start: 04-21-[address] Humaira Churchill Work Phone: [facility] Start: 04-10-2018 End: 04-30-2018 Patient encounter procedure [facility] Start: 09-29-2017 Patient encounter procedure [facility] Start: 07-18-2017 Patient encounter procedure [facility] Procedures Date Procedure Procedure Detail Performing Clinician Start: 12-02-2024 X-ray of chest, PA and lateral views Dr. Humaira Churchill MD Work Phone: Start: 12-02-[address] Humaira krishna MD Work Phone: Start: 12-02-2024 Measurement of occult blood in stool specimen using immunoassay Dr. Humaira Churchill MD Work Phone: Start: 09-25-2024 X-ray of chest, PA and lateral views Dr. Humaira Churchill MD Work Phone: Start: 09-25-2024 Blood count smear mcrscp w/mnl difrntl wbc count Dr. Humaira Churchill MD Work Phone: Start: 09-25-2024 Mean corpuscular hemoglobin concentration determination Dr. Humaira Churchill MD Work Phone: Start: 09-25-2024 Nucleated red blood cell count procedure Dr. Humaira Churchill MD Work Phone: Start: 09-25-2024 Platelet mean volume determination Dr. Kenia Churchill MD Work Phone: Start: 08-30-2024 Blood count smear mcrscp w/mnl difrntl wbc count Dr. Jamie Christina MD Work Phone: Start: 08-30-2024 Mean corpuscular hemoglobin concentration determination Dr. Jamie Christina MD Work Phone: Start: 08-30-2024 Nucleated red blood cell count procedure Dr. Jamie Christina MD Work Phone: Start: 08-30-2024 Platelet mean volume determination Dr. Peyton Christina MD Work Phone: Start: 07-09-[address] Jamie Christina MD Work Phone: Start: 07-02-2024 Albumin/Globulin ratio Dr. Jamie Yepez Work Phone: Start: 07-02-[address] Jamie Christina MD Work Phone: Start: 07-02-2024 Blood count smear mcrscp w/mnl difrntl wbc count Dr. Jamie Christina MD Work Phone: Start: 07-02-2024 BUN/Creatinine ratio Dr. Jamie Christina MD Work Phone: Start: 07-02-2024 Mean corpuscular hemoglobin concentration determination Dr. Jamie Christina MD Work Phone: Start: 07-02-2024 Measurement of renal function Dr. Jamie Christina MD Work Phone: Comment on above: GFR Calc Start: 07-02-2024 Nucleated red blood cell count procedure Dr. Jamie Christina MD Work Phone: Start: 07-02-2024 Platelet mean volume determination Dr. Peyton Christina MD Work Phone: Start: 06-25-[address] Jamie Christina MD Work Phone: Start: 06-25-2024 Blood count smear mcrscp w/mnl difrntl wbc count Dr. Jamie Christina MD Work Phone: Start: 06-25-2024 BUN/Creatinine ratio Dr. Jamie Christina MD Work Phone: Start: 06-25-2024 Calculation of international normalized ratio Dr. Jamie Christina MD Work Phone: Start: 06-25-[address] Jamie Christina MD Work Phone: Start: 06-25-2024 Mean corpuscular hemoglobin concentration determination Dr. Jamie Christina MD Work Phone: Start: 06-25-2024 Measurement of renal function Dr. Jamie Christina MD Work Phone: Start: 06-25-2024 Nucleated red blood cell count procedure Dr. Jamie Christina MD Work Phone: Start: 06-25-2024 Platelet mean volume determination Dr. Peyton Christina MD Work Phone: Start: 06-22-2024 Assay of phosphorus inorganic Dr. Jamie Christina MD Work Phone: Start: 06-22-2024 Red blood cell morphology Dr. Jamie Alatorre i, MD Work Phone: Start: 06-22-[address] Jamie juan MD Work Phone: Start: 06-21-[address] Jamie Christina MD Work Phone: Start: 06-21-2024 Plain chest X-ray Dr. Jamie Christina MD Work Phone: Start: 06-21-[address] Jmaie Christina MD Work Phone: Start: 06-21-2024 Legionella pneumophila antigen assay Dr. Jamie Christina MD Work Phone: Start: 06-21-2024 Measurement of occult blood in stool specimen using immunoassay Dr. Jamie Christina MD Work Phone: Start: 06-21-[address] Jamie Christina MD Work Phone: Start: 06-21-2024 End: 06-21-2024 Streptococcus pneumoniae antigen assay Dr. Jamie Christina MD Work Phone: Start: 06-21-[address] Jamie Christina MD Work Phone: Start: 06-21-2024 Dr. Jamie Christina MD Work Phone: Start: 06-21-2024 Urine microscopy: red cells Dr. Ayo PADILLA Work Phone: Start: 06-21-2024 Urnls dip stick/tablet reagent auto microscopy Dr. Jamie Christina MD Work Phone: Start: 06-21-2024 X-ray of chest, PA and lateral views Dr. Jamie Christina MD Work Phone: Start: 06-21-2024 D-dimer assay, quantitative Dr. Ayo PADILLA Work Phone: Start: 06-13-[address] Jamie Christina MD Work Phone: Start: 06-13-2024 Blood count smear mcrscp w/mnl difrntl wbc count Dr. Jamie Christina MD Work Phone: Start: 06-13-2024 BUN/Creatinine ratio Dr. Jamie Christina MD Work Phone: Start: 06-13-2024 Mean corpuscular hemoglobin concentration determination Dr. Jamie Christina MD Work Phone: Start: 06-13-2024 Measurement of renal function Dr. Jamie Christina MD Work Phone: Start: 06-13-2024 Nucleated red blood cell count procedure Dr. Jamie Christina MD Work Phone: Start: 06-13-2024 Platelet mean volume determination Dr. Peyton Christina MD Work Phone: Start: 06-13-2024 X-ray of chest, PA and lateral views Dr. Jamie Christina MD Work Phone: Start: 06-09-[address] Jamie Christina MD Work Phone: Start: 06-09-2024 Blood count smear mcrscp w/mnl difrntl wbc count Dr. Jamie Christina MD Work Phone: Start: 06-09-2024 BUN/Creatinine ratio Dr. Jamie Christina MD Work Phone: Start: 06-09-2024 Calculation of international normalized ratio Dr. Jamie Christina MD Work Phone: Start: 06-09-[address] Jamie Christina MD Work Phone: Start: 06-09-2024 Mean corpuscular hemoglobin concentration determination Dr. Jamie Christina MD Work Phone: Start: 06-09-2024 Measurement of renal function Dr. Jamie Christina MD Work Phone: Start: 06-09-2024 Nucleated red blood cell count procedure Dr. Jamie Christina MD Work Phone: Start: 06-09-2024 Platelet mean volume determination Dr. Peyton Christina MD Work Phone: Start: 06-06-2024 Plain X-ray of shoulder Dr. Jamie Christina MD Work Phone: Start: 06-06-2024 Reverse prosthetic total arthroplasty of right shoulder Dr. Jamie Christina MD Work Phone: Start: 05-10-2024 Methicillin resistant Staphylococcus aureus screening test Dr. Jamie Christina MD Work Phone: Start: 03-26-2024 Methicillin resistant Staphylococcus aureus screening test Dr. Jamie Christina MD Work Phone: Start: 03-26-2024 CT of upper limb without contrast Dr. Cam Christina MD Work Phone: Start: 08-16-[address] Humaira Churchill Work Phone: Start: 04-16-[address] Humaira Churchill Work Phone: Start: 04-08-2022 Plain x-ray of pelvis and lower extremity Dr. Humaira Churchill Work Phone: Start: 04-21-2021 CT of soft tissues of neck with contrast Dr. Humaira Churchill Work Phone: Plan of Treatment Date Care Activity Detail Author Start: 12-09-2024 ambulatory Facility:[facility] Start: 12-03-2024 Thyroid stimulating hormone measurement [facility] Start: 12-02-2024 Assessment of risk o f venous thromboembolism [facility] Start: 12-02-2024 Insertion of cathete r into peripheral vein [facility] Start: 12-02-2024 Measuring intake and output [facility] Start: 12-02-2024 Oxygen therapy [facility] Start: 12-02-2024 Providing care accor ding to standard [facility] Start: 12-02-2024 Provision of activit y privileges [facility] Start: 12-02-2024 Referral to monologist [facility] Start: 12-02-2024 Referral to morning show producer [facility] Start: 12-02-2024 Referral to service [facility] Start: 12-02-2024 [facility] Start: 12-02-2024 Verification routine [facility] Start: 12-02-2024 Admission procedure [facility] Start: 12-02-2024 [facility] Start: 12-02-2024 [facility] Start: 06-25-2024 Patient discharge [facility] Start: 06-24-2024 [facility] Start: 06-24-2024 Referral to service [facility] Start: 06-24-2024 Application of inter mittent pneumatic compression device [facility] Start: 06-24-2024 Care planning and pr oblem solving actions [facility] Start: 06-23-2024 Administration of bl ood product [facility] Start: 06-23-2024 [facility] Start: 06-22-2024 Administration of bl ood product [facility] Start: 06-21-2024 End: 06-22-2024 [facility] Start: 06-21-2024 Following clinical p athway protocol [facility] Start: 06-21-2024 Transfusion of blood product [facility] Start: 06-21-2024 Ambulation without limitation [facility] Start: 06-21-2024 Assessment of risk o f venous thromboembolism [facility] Start: 06-21-2024 Catheterization of vein [facility] Start: 06-21-2024 Continuous pulse oximetry [facility] Start: 06-21-2024 Inhalation therapy procedure [facility] Start: 06-21-2024 Insertion of cathete r into peripheral vein [facility] Start: 06-21-2024 Measuring intake and output [facility] Start: 06-21-2024 Notification of physician [facility] Start: 06-21-2024 Providing care accor ding to standard [facility] Start: 06-21-2024 Referral to gastroen terology service [facility] Start: 06-21-2024 Referral to occupati onal therapist [facility] Start: 06-21-2024 Referral to service [facility] Start: 06-21-2024 Vital signs measurements [facility] Start: 06-21-2024 Hospital admission, emergency, from emergency room, medical nature [facility] Start: 06-21-2024 Admission procedure [facility] Start: 06-21-2024 Administration of bl ood product [facility] Start: 06-21-2024 Patient referral to dietitian [facility] Start: 06-09-2024 Patient discharge [facility] Start: 06-07-2024 [facility] Start: 06-07-2024 Admission procedure [facility] Start: 06-07-2024 Application of inter mittent pneumatic compression device [facility] Start: 06-06-2024 End: 06-07-2024 [facility] Start: 06-06-2024 Oxygen therapy [facility] Start: 06-06-2024 Following clinical p athway protocol [facility] Start: 06-06-2024 Admission procedure [facility] Start: 06-06-2024 Consultation [facility] Start: 06-06-2024 Ambulation therapy management [facility] Start: 06-06-2024 Application of device [facility] Start: 06-06-2024 Assessment of risk o f venous thromboembolism [facility] Start: 06-06-2024 Catheterization of vein [facility] Start: 06-06-2024 Following clinical p athway protocol [facility] Start: 06-06-2024 Introduction of urin jori catheter [facility] Start: 06-06-2024 Measuring intake and output [facility] Start: 06-06-2024 Neurovascular assessment [facility] Start: 06-06-2024 Patient education [facility] Start: 06-06-2024 Procedure discontinued [facility] Start: 06-06-2024 Provision of activit y privileges [facility] Start: 06-06-2024 Referral to occupati onal therapist [facility] Start: 06-06-2024 Vital signs measurements [facility] Start: 06-06-2024 Wound care [facility] Start: 06-06-2024 Medication education [facility] Anion gap in Serum or Plasma [facility] Basic metabolic 2008 panel with ionized calcium - Serum or Plasma [facility] BUN/Creatinine ratio [facility] Calcium [Mass/volume ] in Serum or Plasma [facility] Carbon dioxide, tota l [Moles/volume] in Central venous blood [facility] CBC W Auto Different ial panel - Blood [facility] CBC W Auto Different ial panel - Blood [facility] Celiac disease screen [facility] Creatinine [Mass/vol ume] in Serum or Plasma [facility] Erythrocyte mean cor puscular volume determination [facility] Ferritin [Mass/volum e] in Serum or Plasma [facility] Glucose [Mass/volume ] in Serum or Plasma [facility] Haptoglobin [Mass/vo lume] in Serum or Plasma [facility] Hematocrit [Volume F raction] of Blood [facility] Hemoglobin [Mass/vol ume] in Blood [facility] Iron [Mass/mass] in Unspecified specimen [facility] Lactate dehydrogenas e measurement [facility] Leukocytes [#/volume ] in Blood [facility] Magnesium measurement [facility] Mean corpuscular hem oglobin concentration determination [facility] Mean corpuscular hem oglobin determination [facility] Measurement of renal function [facility] Natriuretic peptide. B prohormone N-Terminal [Mass/volume] in Serum or Plasma [facility] Neutrophil count [facility] Neutrophil percent differential count [facility] Patient Education ED Ankle Sprai n (Adult) [facility] Work Phone: Patient referral [facility] Work Phone: Platelets [#/volume] in Blood [facility] Potassium measurement [facility] Red blood cell count [facility] Red cell distributio n width determination [facility] Reticulocyte count [facility] Serum chloride measurement [facility] Serum immunofixation [facility] Sodium measurement [facility] Troponin T.cardiac [Mass/volume] in Serum or Plasma by High sensitivity method [facility] Urea nitrogen [Mass/ volume] in Serum or Plasma [facility] XR Chest PA and Lateral [facility] Payers Date Payer Category Payer Self-pay [id number] 2016 Unknown [id number] 2011 Medicare [id number] Unknown [id number] 2.16.8 40.1.435076.3.579.2.462 Unknown [id number] 2.16.8 40.1.890842.3.579.2.462 Unknown [id number] 2.16.8 40.1.843106.3.579.2.462 Unknown [id number] 2.16.8 40.1.730013.3.579.2.462 Unknown [id number] 2.16.8 40.1.408112.3.579.2.462 Unknown [id number] 2.16.8 40.1.104788.3.579.2.462 Unknown [id number] 2.16.8 40.1.161903.3.579.2.462 Unknown [id number] 2.16.8 40.1.224483.3.579.2.462 Unknown [id number] 2.16.8 40.1.808153.3.579.2.462 Unknown [id number] 2.16.8 40.1.598909.3.579.2.462 Unknown [id number] 2.16.8 40.1.431062.3.579.2.462 Unknown [id number] 2.16.8 40.1.115425.3.579.2.462 Unknown [id number] 2.16.8 40.1.924859.3.579.2.462 Unknown [id number] 2.16.8 40.1.518291.3.579.2.462 Unknown [id number] 2.16.8 40.1.491384.3.579.2.462 Unknown [id number] 2.16.8 40.1.091103.3.579.2.462 Unknown [id number] 2.16.8 40.1.219189.3.579.2.462 Unknown [id number] 2.16.8 40.1.507880.3.579.2.462 Unknown [id number] 2.16.8 40.1.887581.3.579.2.462 Unknown [id number] 2.16.8 40.1.222019.3.579.2.462 Unknown [id number] 2.16.8 40.1.617398.3.579.2.462 Unknown [id number] 2.16.8 40.1.607838.3.579.2.462 Unknown [id number] 2.16.8 40.1.220804.3.579.2.462 Unknown [id number] 2.16.8 40.1.026036.3.579.2.462 Unknown [id number] 2.16.8 40.1.681666.3.579.2.462 Unknown [id number] 2.16.8 40.1.282890.3.579.2.462 Unknown [id number] 2.16.8 40.1.964093.3.579.2.462 Unknown [id number] 2.16.8 40.1.748801.3.579.2.462 Unknown [id number] 2.16.8 40.1.031004.3.579.2.462 Unknown [id number] 2.16.8 40.1.904560.3.579.2.462 Unknown [id number] 2.16.8 40.1.401786.3.579.2.462 Unknown [id number] 2.16.8 40.1.603267.3.579.2.462 Unknown [id number] 2.16.8 40.1.676308.3.579.2.462 Unknown [id number] 2.16.8 40.1.038359.3.579.2.462 Unknown [id number] 2.16.8 40.1.575824.3.579.2.462 Unknown [id number] 2.16.8 40.1.785906.3.579.2.462 Unknown [id number] 2.16.8 40.1.828311.3.579.2.462 Unknown [id number] 2.16.8 40.1.207813.3.579.2.462 Unknown [id number] 2.16.8 40.1.371051.3.579.2.462 Unknown [id number] 2.16.8 40.1.072141.3.579.2.462 Unknown [id number] 2.16.8 40.1.806724.3.579.2.462 Unknown [id number] 2.16.8 40.1.341486.3.579.2.462 Unknown [id number] 2.16.8 40.1.470250.3.579.2.462 Unknown [id number] 2.16.8 40.1.818622.3.579.2.462 Unknown [id number] 2.16.8 40.1.738964.3.579.2.462 Unknown [id number] 2.16.8 40.1.994009.3.579.2.462 Unknown [id number] 2.16.8 40.1.474954.3.579.2.462 Unknown [id number] 2.16.8 40.1.116485.3.579.2.462 Unknown [id number] 2.16.8 40.1.144533.3.579.2.462 Unknown [id number] 2.16.8 40.1.841528.3.579.2.462 Unknown [id number] 2.16.8 40.1.432654.3.579.2.462 Unknown [id number] 2.16.8 40.1.606144.3.579.2.462 Unknown [id number] 2.16.8 40.1.646169.3.579.2.462 Unknown [id number] 2.16.8 40.1.725303.3.579.2.462 Unknown [id number] 2.16.8 40.1.399579.3.579.2.462 Unknown [id number] 2.16.8 40.1.156945.3.579.2.462 Unknown [id number] 2.16.8 40.1.491977.3.579.2.462 Unknown [id number] 2.16.8 40.1.442023.3.579.2.462 Social History Date Type Detail Facility Start: 02-24-2021 End: 06-08-2023 Tobacco smoking status DCIS Unknown if ever smoked [facility] Start: 1945 Sex Assigned At Female W [facility] Start: 06-21-2024 End: 12-02-2024 Tobacco smoking status NHIS Ex-smoker (finding) [facility] Start: 07-23-2024 End: 07-25-2024 Sex Female (finding) [facility] NEGATED: Highlighted row [facility] Medical Equipment Procedure Code Equipment Code Equipment Origin al Text Equipment Identifier Dates PROLARYN VOICE GEL FDA Start: 09-19-2017 PROLARYN VOICE GEL FDA Start: 09-19-2017 PROLARYN VOICE GEL FDA Start: 09-19-2017 PROLARYN VOICE GEL FDA Start: 09-19-2017 PROLARYN VOICE GEL FDA Start: 09-19-2017 PROLARYN VOICE GEL FDA Start: 09-19-2017 PROLARYN VOICE GEL FDA Start: 09-19-2017 PROLARYN VOICE GEL FDA Start: 09-19-2017 PROLARYN VOICE GEL FDA Start: 09-19-2017 PROLARYN VOICE GEL FDA Start: 09-19-2017 PROLARYN VOICE GEL FDA Start: 09-19-2017 PROLARYN VOICE GEL FDA Start: 09-19-2017 PROLARYN VOICE GEL FDA Start: 09-19-2017 PROLARYN VOICE GEL FDA Start: 09-19-2017 PROLARYN VOICE GEL FDA Start: 09-19-2017 PROLARYN VOICE GEL FDA Start: 09-19-2017 PROLARYN VOICE GEL FDA Start: 09-19-2017 PROLARYN VOICE GEL FDA Start: 09-19-2017 PROLARYN VOICE GEL FDA Start: 09-19-2017 PROLARYN VOICE GEL FDA Start: 09-19-2017 PROLARYN VOICE GEL FDA Start: 09-19-2017 FDA Start: 09-19-2017 [id number] FDA Start: 01-22-2024 FDA Start: 06-06-2024 [id number] FDA Start: 06-06-2024 [id number] FDA Start: 06-06-2024 [id number] FDA Start: 06-06-2024 [id number] FDA Start: 06-06-2024 ()[id number] FDA Start: 06-06-2024 FDA Start: 09-19-2017 FDA Start: 06-06-2024 FDA Start: 09-19-2017 FDA Start: 06-06-2024 FDA Start: 09-19-2017 FDA Start: 06-06-2024 FDA Start: 09-19-2017 FDA Start: 06-06-2024 FDA Start: 09-19-2017 FDA Start: 06-06-2024 FDA Start: 09-19-2017 FDA Start: 06-06-2024 PROLARYN VOICE GEL FDA Start: 09-19-2017 screw FDA Start: 06-06-2024 PROLARYN VOICE GEL FDA Start: 09-19-2017 screw FDA Start: 06-06-2024 PROLARYN VOICE GEL FDA Start: 09-19-2017 screw FDA Start: 06-06-2024 PROLARYN VOICE GEL FDA Start: 09-19-2017 screw FDA Start: 06-06-2024 Goals Date Patient Goal Desired Activity /State Functional Status Date Assessment Result Facility 06-25-2024 Functional status [facility] Work Phone: 06-09-2024 Functional status Chair;Bathroom Privileg e [facility] Work Phone: Mental Status Date Assessment Result Facility 06-25-2024 Cognitive function Voice/Name [facility] Work Phone: 06-09-2024 Cognitive function Voice/Name [facility] Work Phone: Clinical Notes 01-04-2012 to 12-02-2024 Note Date & Type Note Facility 12-02-2024 History and physi abdifatah note [facility] 12-02-2024 Discharge summary [facility] 12-02-2024 Radiology Diagnostic study note [facility] Imaging Services [address] [place], [place] [address] Chest PA and Lateral MR#: [id number] Acct: [id number] Name: JAUN CHAMBERS Rep #: [id number] : 1945 F 79 From: Gena Hollins MD PCP: Dr. Garry Jay MD Status: REG ER Study:Chest PA and Lateral Date of Exam: 12/02/24 Exam# [id number] Ordering Dr: Jules Daniels DO EXAM: XR Chest, 2 Views CLINICAL INDICATION: SHORTNESS OF BREATH TECHNIQUE: Frontal and lateral views of the chest. COMPARISON: No relevant prior studies available. FINDINGS: LUNGS AND PLEURAL SPACES: See below. HEART: Cardiomegaly with mild congestion. MEDIASTINUM: Unremarkable. Normal mediastinal contour. BONES/JOINTS: Unremarkable. No acute fracture. TUBES, LINES AND DEVICES: Left-sided cardiac pacemaker. RAD/Chest PA and Lateral IMPRESSION: Cardiomegaly with mild congestion. Reading Location: [id number] CC: Dr. Jules Torres DO; Dr. Garry Jay MD ~ Senior Litigation Paralegal: Signed [facility] 12-02-2024 Discharge summary Note Date/Time December 02, 2024 8:49pm [facility] Medical Records Department [address] [place] [address] Emergency Department Summary 12/02/24 MR#: [id number] Acct: [id number] Name: JAUN CHAMBERS Rep #:[id number] : 1945 79 From: Jules Villafana ggett DO PCP: Dr. Garry Jay MD Status:ADM IN Location: [place] [address] HPI History of Present Illness Chief Complaint: Shortness of Breath Narrative Narrative: Chief complaint and HPI: Shortness of breath. 79-year-old female with past medical history of CKD, COPD, cardiomyopathy with CHF, HLD, HTN presents for evaluation of shortness of breath and edema. Patient states for the past several weeks she has been having increased shortness of breath and lower extremity edema. States she saw her kidney doctor recently in which her Lasix was increased to 80 mg twice daily from her 40 mg twice daily. She states she has continued to gain weight including 2 pounds in the past week. Associated symptom is weakness. Patient also endorses periodic bright red blood per rectum. States has been ongoing since May. Follows with Dr. Jones for this. States that she is due for another endoscopy next week. She denies any abdominal pain. She is on Eliquis in which she has been taking this daily. Shedenies any fever, chills, chest pain, abdominal pain, nausea, vomiting, dysuria. Review of systems: See HPI Medications: As listed on the chart Allergies: As listed on the chart PFSH: Per chart Vital signs: As listed on the chart. Reviewed. Physical exam: Gen: A&O x3, NAD Head: Normocephalic, atraumatic Eyes: No sclera icterus, conjunctiva clear ENT: Moist mucous membranes Neck: Trachea midline CV: RRR, no murmurs, + 3 pitting peripheral edema bilaterally Resp: Diminished in the bilateral bases, crackles GI: Abd soft, non-distended, non-tender, no r/r/g Rectal: Normal external examination. No evidence of hemorrhoids or fissures. Normal tone and sensation. No masses, fluctuance, or tenderness. No pain out of proportion. Dark stool on gloved finger. Musc: Moves all extremity, no deformity Skin: Warm, dry, old ecchymosis throughout the body secondary to her blood thinner Neuro: Alert, oriented, grossly intact, sensation intact Psych: Cooperative, appropriate mood and affect PFSH [facility] Medical History Wears glasses Post-menopausal Anxiety Arthritis Back pain Syncope Former smoker Shortness of breath on exertion Hoarseness Hypertension History of stress test History of echocardiogram Cardiology follow-up encounter History of atrial fibrillation Chronic combined systolic and diastolic CHF (congestive heart failure) Hypertrophic cardiomyopathy 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 Longstanding persistent atrial fibrillation Hypothyroidism Secondary pulmonary arterial hypertension Vocal cord paralysis, unilateral complete Sick sinus syndrome Hyperlipidemia Left ventricular diastolic dysfunction FH: sudden cardiac (SCD) Home Medications ?Medication ?Instructions ?Recorded ?Last Taken ?Type aspirin 81 mg chewable tablet 81 mg PO DAILY@0800 Hear t 01/22/15 06/05/24 History Held on 06/25/24. Instructions: Resume on 07/08/24. albuterol sulfate 90 mcg/actuation 2 puff inhalation Q 6H PRN 10/14/20 06/06/24 History aerosol inhaler shortness of breath or wheez ing magnesium 200 mg tablet 200 mg PO DAILY replaceme 06/01/24 History Handicap Parking Placard #1 ea 06/26/23 Unknown Rx sacubitril 24 mg-valsartan 26 mg 1 tab PO BID #180 tab s 06/11/24 Unknown Rx tablet (Entresto) levothyroxine 150 mcg tablet 150 mcg PO QDAY 07/12/24 Unknown History spironolactone 50 mg tablet 25 mg PO Q OTHER DAY 07/12 Unknown History pantoprazole 40 mg tablet,delayed 40 mg PO BID 30 days #60 tabs 07/24/24 Unknown Rx release sucralfate 1 gram tablet (Carafate) 1 g PO TID 4 weeks #180 tabs 07/24/24 Unknown Rx apixaban 5 mg tablet (Eliquis) 5 mg PO BID #180 tabs 0 08/08/24 Unknown Rx acetaminophen 500 mg tablet 1,000 mg PO Q8 PRN 5 Unknown History ferrous sulfate 324 mg (65 mg 324 mg PO QDAY 09/25/24 Unknown History iron) tablet,delayed release multivitamin 1 tab PO QAM 09/25/24 Unknow n History vit C 250 mg-vit E 90 mg-zinc 40 1 tab PO DAILY Unknown History mg-copper 1 pe-xdlhto-zvkszc capsule (PreserVision AREDS-2) diphenoxylate-atropine 2.5 1 tab PO TID PRN diarrhea # 90 tabs 10/14/24 Unknown Rx mg-0.025 mg tablet (Lomotil) furosemide 40 mg tablet 40 mg PO BID CHF 90 days #18 0 tabs 10/24/24 Unknown Rx carvedilol 3.125 mg tablet 3.125 mg PO BID #180 tabs 0 11/18/24 Unknown Rx metoprolol succinate 25 mg 25 mg PO DAILY 12/02/24 Unk nown History tablet,extended release 24 hr verapamil 120 mg tablet,extended 120 mg PO DAILY 12/02 Unknown History release Allergy/AdvReac Type Severity Reaction Status Date / Time metoprolol Allergy Severe Abdominal Verified 12/02/24 17:33 pain, poor rate control amoxicillin Allergy Rash Verified 12/02/24 17:33 lisinopril Allergy Dry cough Verified 12/02/24 17:33 risedronate sodium (From AdvReac Rash Verified 12/02/24 17:33 Actonel) Family History Mother Cancer breast Sister Cancer breast and malignant melanoma Diabetes Brother Arrhythmia Surgical History History of laryngoscopy Hx of hemorrhoidectomy History of colonoscopy History of radiofrequency ablation procedure for cardiac arrhythmia (1999) History of hysterectomy Presence of permanent cardiac pacemaker (01/04/12) History of left heart catheterization (03/09/15) History of implantable cardiac defibrillator (ICD) History of dental surgery Hx of LASIK History of vocal cord surgery Social History Smoking Status: Former smoker how long ago did patient quit smokin years ago alcohol intake: never substance use type: does not use caffeine: No EXAM Physical Exam Const Vital Signs: 12/02/24 17:26 12/02/24 17:37 12/02/24 17:42 Temperature 98 F 98 F Temperature Source Oral Oral Pulse Rate 80 80 Respiratory Rate 26 H 26 H Respiratory Effort Short of Breath Labored Accessory Muscle Use Respiratory Depth Deep Respiratory Pattern Tachypnea Blood Pressure 89/75 L 87/65 L Blood Pressure Mean 79 72 Pulse Ox 100 100 Oxygen Delivery Method Room Air Room Air Room Air 12/02/24 18:33 12/02/24 19:37 12/02/24 20:00 Temperature 98.0 F 97.9 F Temperature Source Temporal Temporal Pulse Rate 84 79 79 Respiratory Rate 18 18 15 Respiratory Effort Respiratory Depth Respiratory Pattern Normal Blood Pressure 91/61 86/64 L Blood Pressure Mean 71 71 Pulse Ox 100 97 Oxygen Delivery Method Room Air Room Air MDM MDM MDM Narrative Medical decision making narrative: 79-year-old female with past medical history of CKD, COPD, cardiomyopathy with CHF, HLD, HTN presents for evaluation of shortness of breath and edema. Patientstates for the past several weeks she has been having increased shortness of breath and lower extremity edema. States she saw her kidney doctor recently in which her Lasix was increased to 80 mg twice daily from her 40 mg twice daily without improvement. On physical exam, patient in no acute distress however sheis fluid overloaded. Her SBP's is in the high 80s. Patient states at baseline her SBP is in the low 90s, daughter in the room confirms this. Given that patient is fluid overloaded, will not give fluids. Will give albumin as I suspect she is intravascularly depleted given her physical exam. Will hold off on Lasix given the blood pressure. Differential diagnosis includes but is not limited to CHF exacerbation, electrolyte abnormality, SAVANNA, suspect less likely ACS. Patient not endorsing any infectious symptoms such as pneumonia. On chart review, patient follows with Dr. Erickson. I reviewed his cardiology note from September. She has hypertrophic cardiomyopathy with a reduced ejection fraction of 35%. She has an ICD implantation. History of atrial fibrillation which is why she zoë the Eliquis. EKG reviewed see below. Chest x-ray was personally reviewed and interpreted by me, ED physician. Cardiomegaly with vascular congestion. Radiology in agreement. Patient in CHF exacerbation. CBC without leukocytosis. Patient has stable anemia. CMP shows baseline CKD with a BUN of 87 and creatinine of 3.75. No transaminitis. Magnesium elevated at 2.8. BNP elevatedat 19,538. Consistent with patient's CHF exacerbation. Her troponin is elevated at 166. She is not endorsing any chest pain. She has no acute ischemic changes on her EKG. I suspect the elevated troponin is secondary to her CKD and CHF exacerbation. However we will reach out to cardiology, Dr. Wise. Dr. Wise is in agreement. No heparin needed at this time. Patient will warrant admission for diuresis. She confirmed understanding the plan. Patient was discussed with the hospitalist service who accepted admission. EKG: Interpreted by me/EM physician: EKG shows accelerated junctional rhythm. No acute ischemic changes. Her 81 Impression: 1. CHF exacerbation 2. CKD 3. Hypotension secondary to #1 and 2 4. Elevated troponin, multifactorial including #1, #2, #3 Lab Data Labs: Laboratory Results - last 24 hr 12/02/24 19:13 WBC 8.5 RBC 3.71 L Hgb 9.6 L Hct 33.5 L MCV 90.3 MCH 25.9 L MCHC 28.7 L RDW Std Deviation 54.7 H RDW Coeff of Linda 16.6 H Plt Count 155 MPV 13.0 H Immature Gran % (Auto) 0.500 Neut % (Auto) 91.2 H Lymph % (Auto) 3.4 L [place] % (Auto) 3.7 Eos % (Auto) 0.6 Baso % (Auto) 0.6 Absolute Neuts (auto) 7.7 Absolute Lymphs (auto) 0.29 L Nucleated RBC % 0 Sodium 140 Potassium 4.3 Chloride 102 Carbon Dioxide 23.8 Anion Gap 15 BUN 87 H Creatinine 3.75 H Estim Creat Clear Calc 13.66 L Est GFR (MDRD) Non-Af 12 L BUN/Creatinine Ratio 23.1 H Glucose 120 H Calcium 9.6 Magnesium 2.8 H Total Bilirubin 0.55 Direct Bilirubin 0.30 AST 30 ALT 19 Alkaline Phosphatase 74 Troponin T High Sens 166 H* [place] [address] H Total Protein 6.1 Albumin 3.9 Globulin 2.1 L Radiography Diagnostic Testing: Clinical Impression(s) from Imaging Studies Chest X-Ray 12/02/24 19:55 IMPRESSION: Cardiomegaly with mild congestion. Reading Location: [facility] Discharge Plan Triage Chief Complaint: Shortness of Breath ED Provider: Jules Torres Dx/Rx/DC Orders Prescriptions: No Action albuterol sulfate 90 mcg/actuation HFA aerosol inhaler 2 puff INHALATION Q6H PRN (Reason: shortness of breath or wheezing) magnesium 200 mg tablet 200 mg PO DAILY levothyroxine 150 mcg tablet 150 mcg PO QDAY spironolactone 50 mg tablet 25 mg PO Q OTHER DAY multivitamin Tablet 1 tab PO QAM ferrous sulfate 324 mg (65 mg iron) tablet,delayed release (DR/EC) 324 mg PO QDAY PreserVision AREDS-2 250-90-40-1 mg capsule 1 tab PO DAILY acetaminophen 500 mg tablet 1,000 mg PO Q8 PRN aspirin 81 MG tablet,chewable 81 mg PO DAILY@0800 verapamil 120 mg tablet extended release 120 mg PO DAILY metoprolol succinate 25 mg tablet extended release 24 hr 25 mg PO DAILY (DME) Handicap Parking Placard See Rx Instructions .Route .MEDSUPPLY Qty: 1 0RF Rx Instructions: As directed sacubitril-valsartan [Entresto] 24-26 mg tablet 1 tab PO BID Qty: 180 3RF pantoprazole 40 mg tablet,delayed release (DR/EC) 40 mg PO BID 30 Days Qty: 60 5RF sucralfate [Carafate] 1 gram tablet 1 g PO TID 28 Days Qty: 180 2RF Eliquis 5 mg tablet 5 mg PO BID Qty: 180 3RF diphenoxylate-atropine [Lomotil] 2.5-0.025 mg tablet 1 tab PO TID PRN (Reason: diarrhea) Qty: 90 3RF furosemide 40 mg tablet 40 mg PO BID 90 Days Qty: 180 3RF carvedilol 3.125 mg tablet 3.125 mg PO BID Qty: 180 3RF Rx Instructions: must administer with a meal/food Primary Care Provider: Garry Jay Referrals: Humaira Churchill MD [Med Staff - [employer]] - Print Language: Faroese What to do if you have Problems For any increased pain, shortness of breath, bleeding, nausea or vomiting, chestpain, or any unexpected problems, contact your Primary Care Provider. Call [facility] ([phone]) or report to the closest Emergency Room. Call 911 if necessary. 12/02/242048 <Electronically signed by Jules Torres DO> Cosigner Signature (if applicable): CC: Dr. Garry Jay MD ~ Signed [facility] Work Phone: 1(989) 291-818305-15-2025 Radiology Diagnostic study noteWooster Community [id number] Evaluation note* Diagnosis Onset Date Resolution Status Admit Date Chronic combined systolic an d diastolic CHF (congestive heart failure) chronic September 25, 2024 10:59am Hypertrophic cardiomyopathy chronic September 25, 2024 10:59am Longstanding persistent atrial fibrillation chronic September 25 10:59am Presence of permanent cardia c pacemaker January 04, 2012 chronic September 25, 2024 10:59am Anemia acute October 08, 2024 10:22am Anemia acute November 07 10:33am Chronic combined systolic an d diastolic CHF (congestive heart failure) chronic November 07, 2024 10:33am Hypertrophic cardiomyopathy chronic November 07, 2024 10:33am Longstanding persistent atrial fibrillation chronic November 07, 10:33am Presence of permanent cardia c pacemaker January 04, 2012 chronic November 07 10:33am Acute kidney failure acute December 02, 2024 8:45pm CHF (congestive heart failure) acute December 02, 2024 8:45pm Dyspnea acute December 02 8:45pm Elevated troponin acute December 022024 8:45pm Fatigue acute December 02 8:45pm Shortness of breath on exertion acute December 02, 2024 8:45pm Hyperlipidemia chronic December 02, 2024 8:45pm Longstanding persistent atrial fibrillation chronic December 02, 8:45pm [facility] Work Phone: 1(756) 490-465402-28-2025 Evaluation note* Diagnosis Onset Date Resolution Status Admit Date Anemia acute July 12, 2024 9:24am Chronic combined systolic and diastolic CHF (congestive heart failure) chronic 2024 10:03am Hypertrophic cardiomyopathy chronic July 12, 2024 10:03am Longstanding persistent atrial fibrillation chronic June 10:03am Presence of permanent cardiac pacemaker January 04, 2012June 10:03am Chronic combined systolic and diastolic CHF (congestive heart failure) chronic September 122024 10:59am Hypertrophic cardiomyopathy chronic September 25, 2024 10:59am Longstanding persistent atrial fibrillation chronic September 25 10:59am Presence of permanent cardiac pacemaker January 04, 2012 chronic September 25 10:59am Anemia acute October 08, 2024 10:22am [facility] Work Phone: 1(299) 596-331702-28-2025 Evaluation note* Diagnosis Onset Date Resolution Status Admit Date Anemia acute July 12, 2024 9:24am Chronic combined systolic and diastolic CHF (congestive heart failure) chronic 2024 10:03am Hypertrophic cardiomyopathy chronic July 12, 2024 10:03am Longstanding persistent atrial fibrillation chronic June 10:03am Presence of permanent cardiac pacemaker January 04, 2012 chronic June 10:03am Chronic combined systolic and diastolic CHF (congestive heart failure) chronic September 122024 10:59am Hypertrophic cardiomyopathy chronic September 25, 2024 10:59am Longstanding persistent atrial fibrillation chronic September 25 10:59am Presence of permanent cardiac pacemaker January 04, 2012 chronic September 25 10:59am Anemia acute October 08, 2024 10:22am Anemia acute November 07 10:33am Chronic combined systolic and diastolic CHF (congestive heart failure) chronic November 07, 2024 10:33am Hypertrophic cardiomyopathy chronic November 07, 2024 10:33am Longstanding persistent atrial fibrillation chronic November 07, 025 10:33am Presence of permanent cardiac pacemaker January 04, 2012 chronic November 07, 025 10:33am [facility] Work Phone: 1(771) 322-130502-11-2025 [facility]02-07-2025 Evaluation note* Diagnosis Onset Date Resolution Status Admit Date Anemia acute June 21, 2024 10:58am Dyspnea acute June 21, 2024 10:58am Elevated troponin acute 2024 10:58am S/p reverse total shoulder arthroplasty acute June 21 10:58am Chronic combined systolic and diastolic CHF (congestive heart failure) chronic 2024 10:58am Longstanding persistent atrial fibrillation chronic June 10:58am Gastrointestinal bleeding, upper resolved June 21 10:58am Sepsis resolved June 21, 2024 10:58am Warfarin-induced coagulopathy resolved June 21 10:58am Anemia acute July 12, 2024 9:24am Chronic combined systolic and diastolic CHF (congestive heart failure) chronic u 2024 10:03am Hypertrophic cardiomyopathy chronic July 12, 2024 10:03am Longstanding persistent atrial fibrillation chronic June 10:03am Presence of permanent cardiac pacemaker January 04, 2012 chronic June 10:03am Chronic combined systolic and diastolic CHF (congestive heart failure) chronic September 122024 10:59am Hypertrophic cardiomyopathy chronic September 25, 2024 10:59am Longstanding persistent atrial fibrillation chronic September 25 10:59am Presence of permanent cardiac pacemaker January 04, 2012 chronic September 25 10:59am Anemia acute October 08, 2024 10:22am [facility] Work Phone: 1(373) 333-376901-26-2025 [facility]01-24-2025 Evaluation note* Diagnosis Onset Date Resolution Status Admit Date S/p reverse total shoulder arthroplasty acute June 07 6:53pm Chronic combined systolic and diastolic CHF (congestive heart failure) chronic 2024 6:53pm Sick sinus syndrome chronic 2024 6:53pm Anemia acute June 21, 2024 10:58am Dyspnea acute June 21, 2024 10:58am Elevated troponin acute 2024 10:58am S/p reverse total shoulder arthroplasty acute June 21 10:58am Chronic combined systolic and diastolic CHF (congestive heart failure) chronic 2024 10:58am Longstanding persistent atrial fibrillation chronic June 10:58am Gastrointestinal bleeding, upper resolved June 21 10:58am Sepsis resolved June 21, 2024 10:58am Warfarin-induced coagulopathy resolved June 21 10:58am Anemia acute July 12, 2024 9:24am Chronic combined systolic and diastolic CHF (congestive heart failure) chronic 2024 10:03am Hypertrophic cardiomyopathy chronic July 12, 2024 10:03am Longstanding persistent atrial fibrillation chronic June 10:03am Presence of permanent cardiac pacemaker January 04, 2012June 10:03am [facility] Work Phone: 1(902) 370-571301-24-2025 Evaluation note* Diagnosis Onset Date Resolution Status Admit Date S/p reverse total shoulder arthroplasty acute June 07 6:53pm Chronic combined systolic and diastolic CHF (congestive heart failure) chronic 2024 6:53pm Sick sinus syndrome chronic 2024 6:53pm Anemia acute June 21, 2024 10:58am Dyspnea acute June 21, 2024 10:58am Elevated troponin acute 2024 10:58am S/p reverse total shoulder arthroplasty acute June 21 10:58am Chronic combined systolic and diastolic CHF (congestive heart failure) chronic 2024 10:58am Longstanding persistent atrial fibrillation chronic June 10:58am Gastrointestinal bleeding, upper resolved June 21 10:58am Sepsis resolved June 21, 2024 10:58am Warfarin-induced coagulopathy resolved June 21 10:58am Anemia acute July 12, 2024 9:24am Chronic combined systolic and diastolic CHF (congestive heart failure) chronic u 2024 10:03am Hypertrophic cardiomyopathy chronic July 12, 2024 10:03am Longstanding persistent atrial fibrillation chronic June 10:03am Presence of permanent cardiac pacemaker January 04, 2012 chronic June 10:03am Chronic combined systolic and diastolic CHF (congestive heart failure) chronic September 122024 10:59am Hypertrophic cardiomyopathy chronic September 25, 2024 10:59am Longstanding persistent atrial fibrillation chronic September 25 10:59am Presence of permanent cardiac pacemaker January 04, 2012 chronic September 25 10:59am [facility] Work Phone: 1(317) 897-993108-22-2012 Evaluation note* Diagnosis Onset Date Resolution Status Chronic combined systolic an d diastolic CHF (congestive heart failure) chronic Hypertrophic cardiomyopathy chronic Longstanding persistent atrial fibrillation chronic Presence of permanent cardiac pacemaker January 03, 2 012 chronic Sick sinus syndrome chronic Systolic heart failure parul paul to hypertrophic cardiomyopathy [facility] Work Phone: 1(296) 627-152608-22-2012 Evaluation note* Diagnosis Onset Date Resolution Status Chronic combined systolic an d diastolic CHF (congestive heart failure) chronic Hypertrophic cardiomyopathy chronic Longstanding persistent atrial fibrillation chronic Presence of permanent cardiac pacemaker January 03, 2 012 [facility] Work Phone: 1([phone]) 666-353008-22-2012 Evaluation note* Diagnosis Onset Date Resolution Status Chronic combined systolic an d diastolic CHF (congestive heart failure) chronic Hypertrophic cardiomyopathy chronic Longstanding persistent atrial fibrillation chronic Presence of permanent cardiac pacemaker January 03, 012 chronic Chronic combined systolic an d diastolic CHF (congestive heart failure) chronic Hypertrophic cardiomyopathy chronic Longstanding persistent atrial fibrillation chronic Presence of permanent cardiac pacemaker January 03, 012 chronic Sick sinus syndrome chronic Systolic heart failure secon beverly to hypertrophic cardiomyopathy [facility] Work Phone: [phone]) 699-267508-22-2012 Evaluation note* Diagnosis Onset Date Resolution Status Hyperlipidemia chronic Hypertrophic cardiomyopathy chronic Longstanding persistent atrial fibrillation chronic Presence of permanent cardiac pacemaker January 03, 012 [facility] Work Phone: 1([phone]) 121-334908-22-2012 Evaluation note* Diagnosis Onset Date Resolution Status Hyperlipidemia chronic Hypertrophic cardiomyopathy chronic Longstanding persistent atrial fibrillation chronic Presence of permanent cardiac pacemaker January 03, 012 chronic Chronic combined systolic an d diastolic CHF (congestive heart failure) chronic Hypertrophic cardiomyopathy chronic Longstanding persistent atrial fibrillation chronic Presence of permanent cardiac pacemaker January 03, 012 chronic Sick sinus syndrome chronic Systolic heart failure secon beverly to hypertrophic cardiomyopathy [facility] Work Phone: 1([phone]) 785-926308-22-2012 Evaluation note* Diagnosis Onset Date Resolution Status Chronic combined systolic an d diastolic CHF (congestive heart failure) chronic Hypertrophic cardiomyopathy chronic Longstanding persistent atrial fibrillation chronic Presence of permanent cardiac pacemaker January 03, 012 chronic Sick sinus syndrome chronic Dyspnea acute Chronic combined systolic an d diastolic CHF (congestive heart failure) chronic Hypertrophic cardiomyopathy chronic Longstanding persistent atrial fibrillation chronic Presence of permanent cardiac pacemaker January 03, 012 [facility] Work Phone: [phone]) 802-276508-22-2012 Evaluation note* Diagnosis Onset Date Resolution Status Chronic combined systolic an d diastolic CHF (congestive heart failure) chronic Hypertrophic cardiomyopathy chronic Longstanding persistent atrial fibrillation chronic Presence of permanent cardiac pacemaker January 03, 2 012 chronic Sick sinus syndrome chronic Systolic heart failure secon beverly to hypertrophic cardiomyopathy chronic Chronic combined systolic an d diastolic CHF (congestive heart failure) chronic Hypertrophic cardiomyopathy chronic Longstanding persistent atrial fibrillation chronic Presence of permanent cardiac pacemaker January 03, 012 [facility] Work Phone: Evaluation noteNo assessment information available [facility] Work Phone: History and physical note Author Randall Stoddard [facility] Note Date/Time December 02, 2024 8:56 pm [facility] Medical Records Department [address] [place] [address] History & Physical Exam 12/02/242040 MR#: [id number] Acct: [id number] Name: JAUN CHAMBERS Rep #:[id number] 2 : 1945 79 From: Randall Stoddard MD PCP: Dr. Garry Jay MD Status:ADM IN Location: [address] HPI - General General Date of Admission: 12/02/24 Date of Service: 12/02/24 Chief Complaint: Shortness of breath HPI Narrative JAUN CHAMBERS, is a 79 F who presents to the emergency room with chief complaint of shortness of breath. Patient has significant past medical history of congestive heart failure and edema and was placed on an increased dose of Lasix 2 weeks ago. In the past 4 days since increasing her dose she has noticedincreasing weight and more difficulty in breathing and fatigue. Patient denies any chest pain, nausea, vomiting or diarrhea at the present time. Laboratory studies are remarkable for an increased BUN of 87 and creatinine of 3.75, troponin of 166, BN TP of 19,538 and CBC is normal. In the emergency room albumin was given, however, patient albumin level returned at a normal level. Due to low blood pressure patient was unable to be further diuresed in the emergency room. She will be admitted to progressive care unit with consults to cardiology and nephrology. Patient expressed her wish to be do not resuscitate Comfort Care arrest. [facility] Medical History Wears glasses Post-menopausal Anxiety Arthritis Back pain Syncope Former smoker Shortness of breath on exertion Hoarseness Hypertension History of stress test History of echocardiogram Cardiology follow-up encounter History of atrial fibrillation Chronic combined systolic and diastolic CHF (congestive heart failure) Hypertrophic cardiomyopathy 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 Longstanding persistent atrial fibrillation Hypothyroidism Secondary pulmonary arterial hypertension Vocal cord paralysis, unilateral complete Sick sinus syndrome Hyperlipidemia Left ventricular diastolic dysfunction FH: sudden cardiac (SCD) Home Medications ?Medication ?Instructions ?Recorded ?Last Taken ?Type aspirin 81 mg chewable tablet 81 mg PO DAILY@0800 Hear t 01/22/15 06/05/24 History Held on 06/25/24. Instructions: Resume on 07/08/24. albuterol sulfate 90 mcg/actuation 2 puff inhalation Q 6H PRN 10/14/20 06/06/24 History aerosol inhaler shortness of breath or wheez ing magnesium 200 mg tablet 200 mg PO DAILY replaceme 06/01/24 History Handicap Parking Placard #1 ea 06/26/23 Unknown Rx sacubitril 24 mg-valsartan 26 mg 1 tab PO BID #180 tab s 06/11/24 Unknown Rx tablet (Entresto) levothyroxine 150 mcg tablet 150 mcg PO QDAY 07/12/24 Unknown History spironolactone 50 mg tablet 25 mg PO Q OTHER DAY 07/12 Unknown History pantoprazole 40 mg tablet,delayed 40 mg PO BID 30 days #60 tabs 07/24/24 Unknown Rx release sucralfate 1 gram tablet (Carafate) 1 g PO TID 4 weeks #180 tabs 07/24/24 Unknown Rx apixaban 5 mg tablet (Eliquis) 5 mg PO BID #180 tabs 0 08/08/24 Unknown Rx acetaminophen 500 mg tablet 1,000 mg PO Q8 PRN 5 Unknown History ferrous sulfate 324 mg (65 mg 324 mg PO QDAY 09/25/24 Unknown History iron) tablet,delayed release multivitamin 1 tab PO QAM 09/25/24 Unknow n History vit C 250 mg-vit E 90 mg-zinc 40 1 tab PO DAILY Unknown History mg-copper 1 ka-gljdxd-xlroea capsule (PreserVision AREDS-2) diphenoxylate-atropine 2.5 1 tab PO TID PRN diarrhea # 90 tabs 10/14/24 Unknown Rx mg-0.025 mg tablet (Lomotil) furosemide 40 mg tablet 40 mg PO BID CHF 90 days #18 0 tabs 10/24/24 Unknown Rx carvedilol 3.125 mg tablet 3.125 mg PO BID #180 tabs 0 11/18/24 Unknown Rx metoprolol succinate 25 mg 25 mg PO DAILY 12/02/24 Unk nown History tablet,extended release 24 hr verapamil 120 mg tablet,extended 120 mg PO DAILY 12/02 Unknown History release Allergy/AdvReac Type Severity Reaction Status Date / Time metoprolol Allergy Severe Abdominal Verified 12/02/24 17:33 pain, poor rate control amoxicillin Allergy Rash Verified 12/02/24 17:33 lisinopril Allergy Dry cough Verified 12/02/24 17:33 risedronate sodium (From AdvReac Rash Verified 12/02/24 17:33 Actonel) Family History Mother Cancer breast Sister Cancer breast and malignant melanoma Diabetes Brother Arrhythmia Surgical History History of laryngoscopy Hx of hemorrhoidectomy History of colonoscopy History of radiofrequency ablation procedure for cardiac arrhythmia (1999) History of hysterectomy Presence of permanent cardiac pacemaker (01/04/12) History of left heart catheterization (03/09/15) History of implantable cardiac defibrillator (ICD) History of dental surgery Hx of LASIK History of vocal cord surgery Social History Smoking Status: Former smoker how long ago did patient quit smokin years ago alcohol intake: never substance use type: does not use caffeine: No ROS Constitutional Constitutional: Reports change in weight, fatigue and weight gain; Denies chillsor fever(s) Eyes Eyes: Denies blurry vision ENT HEENT: Denies abnormal hearing Cardiovascular Cardiovascular: Reports orthopnea; Denies chest pain Respiratory/Chest Respiratory/Chest: Reports shortness of breath with exertion; Denies cough Gastrointestinal Gastrointestinal: Denies abdominal pain Genitourinary Genitourinary: Denies dysuria Musculoskeletal Musculoskeletal: Denies back pain Integumentary Integumentary: Reports dry skin Neurologic Neurologic: Denies abnormal speech or confusion Psychiatric Psychiatric: Denies anxiety or depression Vital Signs Vital Signs Vital Signs: 12/02/24 17:26 12/02/24 17:37 12/02/24 17:42 Temperature 98 F 98 F Temperature Source Oral Oral Pulse Rate 80 80 Respiratory Rate 26 H 26 H Respiratory Effort Short of Breath Labored Accessory Muscle Use Respiratory Depth Deep Respiratory Pattern Tachypnea Blood Pressure 89/75 L 87/65 L Blood Pressure Mean 79 72 Pulse Ox 100 100 Oxygen Delivery Method Room Air Room Air Room Air 12/02/24 18:33 12/02/24 19:37 12/02/24 20:00 Temperature 98.0 F 97.9 F Temperature Source Temporal Temporal Pulse Rate 84 79 79 Respiratory Rate 18 18 15 Respiratory Effort Respiratory Depth Respiratory Pattern Normal Blood Pressure 91/61 86/64 L Blood Pressure Mean 71 71 Pulse Ox 100 97 Oxygen Delivery Method Room Air Room Air Weight Weight: 197 lb 1.492 oz Body Mass Index (BMI) 32.8 Physical Exam Const oriented x3 General Appearance: cooperative HEENT normocephalic and head/scalp atraumatic Eyes PERRL Neck no lymphadenopathy Lymph Lymphatic: no lymphadenopathy noted Resp normal respiratory effort, normal air movement and clear to auscultation bilaterally Cardio S1 normal heart sound and S2 normal heart sound Rhythm: abnormal rhythm irregularly irregular GI normal to inspection, nondistended, normoactive bowel sounds Extremity General Extremity: edema bilateral lower extremity Skin General Skin Exam: dry skin Neuro no focal motor deficits and no sensory deficits noted Psych thought process normal, cooperative and affect normal Results Lab / Micro Data 12/02/24 19:13 12/02/24 19:13 Labs: Laboratory Results - last 24 hr 12/02/24 19:13: WBC 8.5, RBC 3.71 L, Hgb 9.6 L, Hct 33.5 L, MCV 90.3, MCH 25.9 L, MCHC 28.7 L, RDW Std Deviation 54.7 H, RDW Coeff of Linda 16.6 H, Plt Count 155,MPV 13.0 H, Immature Gran % (Auto) 0.500, Neut % (Auto) 91.2 H, Lymph % (Auto) 3.4 L, [place] % (Auto) 3.7, Eos % (Auto) 0.6, Baso % (Auto) 0.6, Absolute Neuts (auto) 7.7, Absolute Lymphs (auto) 0.29 L, Nucleated RBC % 0, Sodium 140, Potassium 4.3, Chloride 102, Carbon Dioxide 23.8, Anion Gap 15, BUN 87 H, Creatinine 3.75 H, Estim Creat Clear Calc 13.66 L, Est GFR (MDRD) Non-Af 12 L, BUN/Creatinine Ratio 23.1 H, Glucose 120 H, Calcium 9.6, Magnesium 2.8 H, Total Bilirubin 0.55, Direct Bilirubin 0.30, AST 30, ALT 19, Alkaline Phosphatase 74, Troponin T High Sens 166 H*, [place] [address] H, Total Protein 6.1, Albumin 3.9, Globulin 2.1 L Micro: Microbiology 12/02/24 18:14 Stool Stool Occult Blood (AALIYAH) - Final Occult Blood Positive Imaging Radiology Impression Chest X-Ray 12/02/24 19:55 IMPRESSION: Cardiomegaly with mild congestion. Reading Location: [facility] Assessment & Plan Assessment/Plan (1) Elevated troponin: (2) Dyspnea: (3) Fatigue: (4) Shortness of breath on exertion: (5) Hyperlipidemia: QUALIFIERS: Hyperlipidemia type: pure hypercholesterolemia Qualified Code(s): E78.00 - Pure hypercholesterolemia, unspecified; E78.0 - Pure hypercholesterolemia (6) Longstanding persistent atrial fibrillation: (7) Acute kidney failure: (8) CHF (congestive heart failure): PLAN: Plan 1 shortness of breath secondary congestive heart failure and renal failure?admitpatient to progressive care unit, consult nephrology due to acute on chronic kidney disease and possible need for dialysis due to fluid overload and inability to diurese due to hypotension. Will consult cardiology further to assist further with management of congestive heart failure and is complicated byhypotension. Will obtain echocardiogram, cycle cardiac enzymes, repeat BMP in a.m. at this time her elevated troponin is likely secondary to cardiac strain from her heart failure. Patient expressed direct wish to be DNR Comfort Care arrest and does not want extreme measures to resuscitate her. Will continue oxygen to support SPO2 greater than 90%. 2. Atrial fibrillation?continue anticoagulation but will decrease her Eliquis dose to 2.5 mg p.o. twice daily due to age and renal disease 3. Hyperlipidemia?continue statin medication 4. DVT prophylaxis?patient is on Eliquis Charges/Coding Visit Charges Inpatient E&M: 60095 Init Hosp L2 12/02/242055 <Electronically signed by Randall Stoddard MD> Cosigner Signature (if applicable): CC: Dr. Garry Jay MD; Dr. Randall Stoddard MD~ Signed [facility] Work Phone: Reason for referral (narrative)No reason for referral [facility] Work Phone: Summary Purpose Family History Relationship Condition Age at Onset Recorded Date/T delores mother Malignant neoplasm Unknown sister Malignant neoplasm Unknown Diabetes mellitus Unknown brother Cardiac arrhythmia Unknown Advance Directives Advance Directive Response Recorded Date/ Time Living Will Yes September 15, 2017 11 :15am Power of Cash Register Operator Yes September 15, 2017 11:15am Advance Directive Response Recorded Date/ Time Living Will Yes September 15, 2017 10 :15am Power of Cash Register Operator Yes September 15, 2017 10:15am Advance Directive Response Recorded Date/ Time Living Will Yes September 15, 2017 11 :15am Power of Cash Register Operator Yes September 15, 2017 11:15am Living Will Yes March 14 9:38am Power of Cash Register Operator Yes March 14, 2024 9:38am Living Will Yes June 06 11:49am Power of Cash Register Operator Yes June 06, 2024 11:49am Name of Medical Power of Cash Register Operator HUMAIRA EMERSON June 06, 2024 11:49am Living Will Yes January 21 11:43am Power of Cash Register Operator Yes January 22, 2024 11:43am Living Will Yes April 13 11:40pm Power of Cash Register Operator Yes April 13, 2024 11:40pm Living Will Yes May 15 6:10am Power of Cash Register Operator Yes May 15 6:10am Living Will Yes June 21 3:12pm Power of Cash Register Operator Yes June 21, 2024 3:12pm Name of Medical Power of Cash Register Operator Humaira Emerson June 21, 2024 3:12pm Advance Directives Yes January 11:43am Advance Directive Response Recorded Date/ Time Living Will Yes September 15, 2017 11 :15am Power of Cash Register Operator Yes September 15, 2017 11:15am Living Will Yes June 06 11:49am Power of Cash Register Operator Yes June 06, 2024 11:49am Name of Medical Power of Cash Register Operator HUMAIRA EMERSON June 06, 2024 11:49am Living Will Yes April 13 11:40pm Power of Cash Register Operator Yes April 13, 2024 11:40pm Living Will Yes May 15 6:10am Power of Cash Register Operator Yes May 15 6:10am Living Will Yes June 21 3:12pm Power of Cash Register Operator Yes June 21, 2024 3:12pm Name of Medical Power of Cash Register Operator Humaira Ki June 21, 2024 3:12pm Advance Directives Yes January 11:43am Advance Directive Response Recorded Date/ Time Living Will Yes September 15, 2017 11 :15am Do you have a Healthcare Power of Cash Register Operator? Yes September 15, 2017 11:15am Living Will Yes June 06 11:49am Do you have a Healthcare Power of Cash Register Operator? Yes June 06, 2024 11:49am Name of Medical Power of Cash Register Operator HUMAIRA EMERSON June 06, 2024 11:49am Living Will Yes May 15 6:10am Do you have a Healthcare Power of Cash Register Operator? Yes May 15, 2024 6:10am Living Will Yes June 21 3:12pm Do you have a Healthcare Power of Cash Register Operator? Yes June 21, 2024 3:12pm Name of Medical Power of Cash Register Operator Humaira Emerson June 21, 2024 3:12pm Advance Directives Yes January 11:43am Advance Directive Response Recorded Date/ Time Living Will Yes September 15, 2017 11 :15am Do you have a Healthcare Power of Cash Register Operator? Yes September 15, 2017 11:15am Living Will Yes June 06 11:49am Do you have a Healthcare Power of Cash Register Operator? Yes June 06, 2024 11:49am Name of Medical Power of Cash Register Operator HUMAIRA KI June 06, 2024 11:49am Living Will Yes June 21 3:12pm Do you have a Healthcare Power of Cash Register Operator? Yes June 21, 2024 3:12pm Name of Medical Power of Cash Register Operator Humaira Emerson June 21, 2024 3:12pm Advance Directives Yes January 11:43am Advance Directive Response Recorded Date/ Time Living Will Yes September 15, 2017 11 :15am Do you have a Healthcare Power of Cash Register Operator? Yes September 15, 2017 11:15am Living Will Yes June 21 3:12pm Do you have a Healthcare Power of Cash Register Operator? Yes June 21, 2024 3:12pm Name of Medical Power of Cash Register Operator Humaira Emerson June 21, 2024 3:12pm Advance Directives Yes January 11:43am Advance Directive Response Recorded Date/ Time Living Will Yes September 15, 2017 11 :15am Do you have a Healthcare Power of Cash Register Operator? Yes September 15, 2017 11:15am Advance Directives Yes January 11:43am Advance Directive Response Recorded Date/ Time Do you have a Healthcare Power of Cash Register Operator? 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 Chief Complaint S/O INR-COPY PCP 6 mos PPM f/u S/O INR-COPY PCP S/O INR-COPY PCP Reason for Visit Chronic combined sys tolic and diastolic CHF (congestive heart failure) Hypertrophic cardiomyopathy Longstanding persistent atrial fibrillation Presence of permanent cardiac pacemaker Sick sinus syndrome 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 Chief Complaint S/O INR-COPY PCP S/O INR-COPY PCP 6 M FU CAD/ASHD Reason for Visit Chronic combined sys tolic and diastolic CHF (congestive heart failure) Hypertrophic cardiomyopathy Longstanding persistent atrial fibrillation Presence of permanent cardiac pacemaker Chief Complaint 6 M FU CAD/ASHD S/O INR-COPY PCP 6 mos PPM f/u S/O INR-COPY PCP Reason for Visit Chronic combined sys tolic and diastolic CHF (congestive heart failure) Hypertrophic cardiomyopathy Longstanding persistent atrial fibrillation Presence of permanent cardiac pacemaker Chronic combined systolic and diastolic CHF (congestive heart failure) Hypertrophic cardiomyopathy Longstanding persistent atrial fibrillation Presence of permanent cardiac pacemaker Sick sinus syndrome 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 Chief Complaint S/O INR-COPY PCP S/O INR-COPY PCP S/O INR-COPY PCP 6 M FU THIGH PAIN- RIGHT LEG Reason for Visit Hyperlipidemia Hypertrophic cardiomyopathy Longstanding persistent atrial fibrillation Presence of permanent cardiac pacemaker Chief Complaint S/O INR-COPY PCP S/O INR-COPY PCP S/O INR-COPY PCP 6 M FU THIGH PAIN- RIGHT LEG fall, LT ankle pain Reason for Visit Hyperlipidemia Hypertrophic cardiomyopathy Longstanding persistent atrial fibrillation Presence of permanent cardiac pacemaker Chief Complaint S/O INR-COPY PCP 6 M FU THIGH PAIN- RIGHT LEG fall, LT ankle pain 6 mos PPM f/u S/O INR-COPY PCP Reason for Visit Hyperlipidemia Hypertrophic cardiomyopathy Longstanding persistent atrial fibrillation Presence of permanent cardiac pacemaker Chronic combined systolic and diastolic CHF (congestive heart failure) Hypertrophic cardiomyopathy Longstanding persistent atrial fibrillation Presence of permanent cardiac pacemaker Sick sinus syndrome 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 Chief Complaint S/O INR-COPY PCP 6 M FU THIGH PAIN- RIGHT LEG fall, LT ankle pain 6 mos PPM f/u S/O INR-COPY PCP S/O INR-COPY PCP Reason for Visit Hyperlipidemia Hypertrophic cardiomyopathy Longstanding persistent atrial fibrillation Presence of permanent cardiac pacemaker Chronic combined systolic and diastolic CHF (congestive heart failure) Hypertrophic cardiomyopathy Longstanding persistent atrial fibrillation Presence of permanent cardiac pacemaker Sick sinus syndrome 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 Reason for Visit Chronic combined sys tolic and diastolic CHF (congestive heart failure) Hypertrophic cardiomyopathy Longstanding persistent atrial fibrillation Presence of permanent cardiac pacemaker Sick sinus syndrome Dyspnea Chronic combined systolic and diastolic CHF (congestive heart failure) Hypertrophic cardiomyopathy Longstanding persistent atrial fibrillation Presence of permanent cardiac pacemaker Chief Complaint S/O INR-COPY PCP S/O INR-COPY PCP 6 mos PPM f/u sees INSOLE CEMENTER @ 10:30 7 m fu w INSOLE CEMENTER per INSOLE CEMENTER PPM f/u @ 10AM E ORDER/NOT IN YET? S/O INR-COPY PCP Reason for Visit Chronic combined sys tolic and diastolic CHF (congestive heart failure) Hypertrophic cardiomyopathy Longstanding persistent atrial fibrillation Presence of permanent cardiac pacemaker Sick sinus syndrome Dyspnea Chronic combined systolic and diastolic CHF (congestive heart failure) Hypertrophic cardiomyopathy Longstanding persistent atrial fibrillation Presence of permanent cardiac pacemaker Chief Complaint S/O INR-COPY PCP 6 mos PPM f/u sees INSOLE CEMENTER @ 10:30 7 m fu w INSOLE CEMENTER per INSOLE CEMENTER PPM f/u @ 10AM E ORDER/NOT IN YET? S/O INR-COPY PCP S/O INR-COPY PCP Reason for Visit Chronic combined sys tolic and diastolic CHF (congestive heart failure) Hypertrophic cardiomyopathy Longstanding persistent atrial fibrillation Presence of permanent cardiac pacemaker Sick sinus syndrome Dyspnea Chronic combined systolic and diastolic CHF (congestive heart failure) Hypertrophic cardiomyopathy Longstanding persistent atrial fibrillation Presence of permanent cardiac pacemaker Chief Complaint S/O INR-COPY PCP 6 mos PPM f/u sees INSOLE CEMENTER @ 10:30 7 m fu w INSOLE CEMENTER per INSOLE CEMENTER PPM f/u @ 10AM E ORDER/NOT IN YET? S/O INR-COPY PCP S/O INR-COPY PCP S/O INR-COPY PCP Reason for Visit Chronic combined sys tolic and diastolic CHF (congestive heart failure) Hypertrophic cardiomyopathy Longstanding persistent atrial fibrillation Presence of permanent cardiac pacemaker Sick sinus syndrome Dyspnea Chronic combined systolic and diastolic CHF (congestive heart failure) Hypertrophic cardiomyopathy Longstanding persistent atrial fibrillation Presence of permanent cardiac pacemaker Chief Complaint S/O INR-COPY PCP S/O INR-COPY PCP S/O INR-COPY PCP S/O INR-COPY PCP Chief Complaint S/O INR-COPY PCP S/O INR-COPY PCP S/O INR-COPY PCP -ADD EORDER FROM DR CHRISTINA 04/19/26 Chief Complaint S/O INR-COPY PCP S/O INR-COPY PCP -ADD EORDER FROM DR CHRISTINA 04/19/26 S/O INR-COPY PCP 7 m fu / INSOLE CEMENTER @ 10:45 AM 7 m fu w INSOLE CEMENTER per INSOLE CEMENTER / 10 AM w LUZ Reason for Visit Chronic combined sys tolic and diastolic CHF (congestive heart failure) Hypertrophic cardiomyopathy Longstanding persistent atrial fibrillation Presence of permanent cardiac pacemaker Sick sinus syndrome 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) Hypertrophic cardiomyopathy Longstanding persistent atrial fibrillation Presence of permanent cardiac pacemaker Chief Complaint S/O INR-COPY PCP -AD D EORDER FROM DR CHRISTINA 04/19/26 S/O INR-COPY PCP Pacer Check Remote 7 m fu / INSOLE CEMENTER @ 10:45 AM 7 m fu w INSOLE CEMENTER per INSOLE CEMENTER / 10 AM w LUZ S/O INR-COPY PCP Reason for Visit Chronic combined sys tolic and diastolic CHF (congestive heart failure) Hypertrophic cardiomyopathy Longstanding persistent atrial fibrillation Presence of permanent cardiac pacemaker Sick sinus syndrome 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) Hypertrophic cardiomyopathy Longstanding persistent atrial fibrillation Presence of permanent cardiac pacemaker Chief Complaint S/O INR-COPY PCP Pacer Check Remote 7 m fu / INSOLE CEMENTER @ 10:45 AM 7 m fu w INSOLE CEMENTER per INSOLE CEMENTER / 10 AM w LUZ S/O INR-COPY PCP SCREENING Reason for Visit Chronic combined sys tolic and diastolic CHF (congestive heart failure) Hypertrophic cardiomyopathy Longstanding persistent atrial fibrillation Presence of permanent cardiac pacemaker Sick sinus syndrome 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) Hypertrophic cardiomyopathy Longstanding persistent atrial fibrillation Presence of permanent cardiac pacemaker Chief Complaint Admit Date S/O INR-COPY PCP March 26, 2024 7:55am R SHOULDER OA, TORNIER PROTOCOL March 26, 2024 7:58am PREOP March 26, 2024 8:18am CAD/ASHD April 12, 2024 10:46am Pacer Check Remote April 28, 2024 9:50pm S/O INR-COPY PCP May 10, 2024 8:14am S/O INR-COPY PCP May 31, 2024 1 0:41am REVERSE RIGHT TOTAL SHOULDER ARTHROPLAST Y, ERAS June 06, 2024 4:45pm REVERSE RIGHT TOTAL SHOULDER ARTHROPLAST Y, ERAS June 07, 2024 11:10am REVERSE RIGHT TOTAL SHOULDER ARTHROPLAST Y, ERAS June 07, 2024 6:53pm REVERSE RIGHT TOTAL SHOULDER ARTHROPLAST Y, ERAS June 08, 2024 11:12am REVERSE RIGHT TOTAL SHOULDER ARTHROPLAST Y, ERAS June 09, 2024 10:01am SEPSIS, SEVERE ANEMIA June 21, 2024 10:58am sob June 21, 2024 1 1:01am sob June 21, 2024 1 :18pm SEPSIS, SEVERE ANEMIA June 21, 2024 5:08pm SEPSIS, SEVERE ANEMIA June 22, 2024 1:24am SEPSIS, SEVERE ANEMIA June 22, 2024 8:11am SEPSIS, SEVERE ANEMIA June 23, 2024 7:17am SEPSIS, SEVERE ANEMIA June 24 8:11am SEPSIS, SEVERE ANEMIA June 24 11:14am SEPSIS, SEVERE ANEMIA June 25 4:54pm EORDERS- BMP AND THYROID July 09, 2024 11:09am Hospital FU July 12, 2024 9:24am 6 m fu July 12, 2024 10:03am INT ORDERS, 2 ORDERING DOCTORS July 12, 2024 10:48am Reason for Visit Admit Date S/p reverse total shoulder arthroplasty June 07, 2024 6:53pm Chronic combined systolic an d diastolic CHF (congestive heart failure) June 07, 2024 6:53pm Sick sinus syndrome June 07, 2024 6 :53pm Anemia June 21, 2024 1 0:58am Dyspnea June 21, 2024 1 0:58am Elevated troponin June 21, 2024 1 0:58am S/p reverse total shoulder arthroplasty June 21, 2024 10:58am Chronic combined systolic an d diastolic CHF (congestive heart failure) June 21, 2024 10:58am Longstanding persistent atrial fibrillat ion June 21, 2024 10:58am Gastrointestinal bleeding, upper Februar 2024 10:58am Sepsis June 21, 2024 1 0:58am Warfarin-induced coagulopathy June 212024 10:58am Anemia July 12, 2024 9:24am Chronic combined systolic an d diastolic CHF (congestive heart failure) July 12, 2024 10:03am Hypertrophic cardiomyopathy June 10:03am Longstanding persistent atrial fibrillat ion July 12, 2024 10:03am Presence of permanent cardiac pacemaker July 12, 2024 10:03am Chief Complaint Admit Date CAD/ASHD April 12, 2024 10:46am Pacer Check Remote April 28, 2024 9:50pm S/O INR-COPY PCP May 10, 2024 8:14am S/O INR-COPY PCP May 31, 2024 1 0:41am REVERSE RIGHT TOTAL SHOULDER ARTHROPLAST Y, ERAS June 06, 2024 4:45pm REVERSE RIGHT TOTAL SHOULDER ARTHROPLAST Y, ERAS June 07, 2024 11:10am REVERSE RIGHT TOTAL SHOULDER ARTHROPLAST Y, ERAS June 07, 2024 6:53pm REVERSE RIGHT TOTAL SHOULDER ARTHROPLAST Y, ERAS June 08, 2024 11:12am REVERSE RIGHT TOTAL SHOULDER ARTHROPLAST Y, ERAS June 09, 2024 10:01am SEPSIS, SEVERE ANEMIA June 21, 2024 10:58am sob June 21, 2024 1 1:01am sob June 21, 2024 1 :18pm SEPSIS, SEVERE ANEMIA June 21, 2024 5:08pm SEPSIS, SEVERE ANEMIA June 22, 2024 1:24am SEPSIS, SEVERE ANEMIA June 22, 2024 8:11am SEPSIS, SEVERE ANEMIA June 23, 2024 7:17am SEPSIS, SEVERE ANEMIA June 24 8:11am SEPSIS, SEVERE ANEMIA June 24 11:14am SEPSIS, SEVERE ANEMIA June 25 4:54pm EORDERS- BMP AND THYROID July 09, 2024 11:09am Hospital July 12, 2024 9:24am 6 m July 12, 2024 10:03am INT ORDERS, 2 ORDERING DOCTORS July 12, 2024 10:48am Chief Complaint Admit Date S/O INR-COPY PCP May 31, 2024 1 0:41am REVERSE RIGHT TOTAL SHOULDER ARTHROPLAST Y, ERAS June 06, 2024 4:45pm REVERSE RIGHT TOTAL SHOULDER ARTHROPLAST Y, ERAS June 07, 2024 11:10am REVERSE RIGHT TOTAL SHOULDER ARTHROPLAST Y, ERAS June 07, 2024 6:53pm REVERSE RIGHT TOTAL SHOULDER ARTHROPLAST Y, ERAS June 08, 2024 11:12am REVERSE RIGHT TOTAL SHOULDER ARTHROPLAST Y, ERAS June 09, 2024 10:01am SEPSIS, SEVERE ANEMIA June 21, 2024 10:58am sob June 21, 2024 1 1:01am sob June 21, 2024 1 :18pm SEPSIS, SEVERE ANEMIA June 21, 2024 5:08pm SEPSIS, SEVERE ANEMIA June 22, 2024 1:24am SEPSIS, SEVERE ANEMIA June 22, 2024 8:11am SEPSIS, SEVERE ANEMIA June 23, 2024 7:17am SEPSIS, SEVERE ANEMIA June 24 8:11am SEPSIS, SEVERE ANEMIA June 24 11:14am SEPSIS, SEVERE ANEMIA June 25 4:54pm EORDERS- BMP AND THYROID July 09, 2024 11:09am Hospital July 12, 2024 9:24am 6 m July 12, 2024 10:03am INT ORDERS, 2 ORDERING DOCTORS July 12, 2024 10:48am Pacer Check Remote July 29, 2024 4:4 7am Pacer Check Remote August 03, 2024 8:5 4pm Chief Complaint Admit Date S/O INR-COPY PCP May 31, 2024 1 0:41am REVERSE RIGHT TOTAL SHOULDER ARTHROPLAST Y, ERAS June 06, 2024 4:45pm REVERSE RIGHT TOTAL SHOULDER ARTHROPLAST Y, ERAS June 07, 2024 11:10am REVERSE RIGHT TOTAL SHOULDER ARTHROPLAST Y, ERAS June 07, 2024 6:53pm REVERSE RIGHT TOTAL SHOULDER ARTHROPLAST Y, ERAS June 08, 2024 11:12am REVERSE RIGHT TOTAL SHOULDER ARTHROPLAST Y, ERAS June 09, 2024 10:01am SEPSIS, SEVERE ANEMIA June 21, 2024 10:58am sob June 21, 2024 1 1:01am sob June 21, 2024 1 :18pm SEPSIS, SEVERE ANEMIA June 21, 2024 5:08pm SEPSIS, SEVERE ANEMIA June 22, 2024 1:24am SEPSIS, SEVERE ANEMIA June 22, 2024 8:11am SEPSIS, SEVERE ANEMIA June 23, 2024 7:17am SEPSIS, SEVERE ANEMIA June 24 8:11am SEPSIS, SEVERE ANEMIA June 24 11:14am SEPSIS, SEVERE ANEMIA June 25 4:54pm EORDERS- BMP AND THYROID July 09, 2024 11:09am Hospital July 12, 2024 9:24am 6 m July 12, 2024 10:03am INT ORDERS, 2 ORDERING DOCTORS July 12, 2024 10:48am Pacer Check Remote July 29, 2024 4:4 7am Pacer Check Remote August 03, 2024 8:5 4pm 3 M September 25, 2024 10:59 am Reason for Visit Admit Date S/p reverse total shoulder arthroplasty June 07, 2024 6:53pm Chronic combined systolic an d diastolic CHF (congestive heart failure) June 07, 2024 6:53pm Sick sinus syndrome June 07, 2024 6 :53pm Anemia June 21, 2024 1 0:58am Dyspnea June 21, 2024 1 0:58am Elevated troponin June 21, 2024 1 0:58am S/p reverse total shoulder arthroplasty June 21, 2024 10:58am Chronic combined systolic an d diastolic CHF (congestive heart failure) June 21, 2024 10:58am Longstanding persistent atrial fibrillat ion June 21, 2024 10:58am Gastrointestinal bleeding, upper Februar y 2024 10:58am Sepsis June 21, 2024 1 0:58am Warfarin-induced coagulopathy June 212024 10:58am Anemia July 12, 2024 9:24am Chronic combined systolic an d diastolic CHF (congestive heart failure) July 12, 2024 10:03am Hypertrophic cardiomyopathy June 10:03am Longstanding persistent atrial fibrillat ion July 12, 2024 10:03am Presence of permanent cardiac pacemaker July 12, 2024 10:03am Chronic combined systolic an d diastolic CHF (congestive heart failure) September 25, 2024 10:59am Hypertrophic cardiomyopathy September 25 10:59am Longstanding persistent atrial fibrillat ion September 25, 2024 10:59am Presence of permanent cardiac pacemaker September 25, 2024 10:59am Chief Complaint Admit Date REVERSE RIGHT TOTAL SHOULDER ARTHROPLAST Y, ERAS June 06, 2024 4:45pm REVERSE RIGHT TOTAL SHOULDER ARTHROPLAST Y, ERAS June 07, 2024 11:10am REVERSE RIGHT TOTAL SHOULDER ARTHROPLAST Y, ERAS June 07, 2024 6:53pm REVERSE RIGHT TOTAL SHOULDER ARTHROPLAST Y, ERAS June 08, 2024 11:12am REVERSE RIGHT TOTAL SHOULDER ARTHROPLAST Y, ERAS June 09, 2024 10:01am SEPSIS, SEVERE ANEMIA June 21, 2024 10:58am sob June 21, 2024 1 1:01am sob June 21, 2024 1 :18pm SEPSIS, SEVERE ANEMIA June 21, 2024 5:08pm SEPSIS, SEVERE ANEMIA June 22, 2024 1:24am SEPSIS, SEVERE ANEMIA June 22, 2024 8:11am SEPSIS, SEVERE ANEMIA June 23, 2024 7:17am SEPSIS, SEVERE ANEMIA June 24 8:11am SEPSIS, SEVERE ANEMIA June 24 11:14am SEPSIS, SEVERE ANEMIA June 25 4:54pm EORDERS- BMP AND THYROID July 09, 2024 11:09am Hospital FU July 12, 2024 9:24am 6 m fu July 12, 2024 10:03am INT ORDERS, 2 ORDERING DOCTORS July 12, 2024 10:48am Pacer Check Remote July 29, 2024 4:4 7am Pacer Check Remote August 03, 2024 8:5 4pm 3 M FU September 25, 2024 10:59 am INT LAB AND XRAY ORDERS September 25, 2024 1 2:11pm EORDER 2024 10:24 am Chief Complaint Admit Date SEPSIS, SEVERE ANEMIA June 21, 2024 10:58am sob June 21, 2024 1 1:01am sob June 21, 2024 1 :18pm SEPSIS, SEVERE ANEMIA June 21, 2024 5:08pm SEPSIS, SEVERE ANEMIA June 22, 2024 1:24am SEPSIS, SEVERE ANEMIA June 22, 2024 8:11am SEPSIS, SEVERE ANEMIA June 23, 2024 7:17am SEPSIS, SEVERE ANEMIA June 24 8:11am SEPSIS, SEVERE ANEMIA June 24 11:14am SEPSIS, SEVERE ANEMIA June 25 4:54pm EORDERS- BMP AND THYROID July 09, 2024 11:09am Hospital FU July 12, 2024 9:24am 6 m July 12, 2024 10:03am INT ORDERS, 2 ORDERING DOCTORS July 12, 2024 10:48am Pacer Check Remote July 29, 2024 4:4 7am Pacer Check Remote August 03, 2024 8:5 4pm 3 M FU September 25, 2024 10:59 am INT LAB AND XRAY ORDERS September 25, 2024 1 2:11pm EORDER 2024 10:24 am 3 M FU October 08, 2024 10:22 am Reason for Visit Admit Date Anemia June 21, 2024 1 0:58am Dyspnea June 21, 2024 1 0:58am Elevated troponin June 21, 2024 1 0:58am S/p reverse total shoulder arthroplasty June 21, 2024 10:58am Chronic combined systolic an d diastolic CHF (congestive heart failure) June 21, 2024 10:58am Longstanding persistent atrial fibrillat ion June 21, 2024 10:58am Gastrointestinal bleeding, upper Februar 2024 10:58am Sepsis June 21, 2024 1 0:58am Warfarin-induced coagulopathy June 212024 10:58am Anemia July 12, 2024 9:24am Chronic combined systolic an d diastolic CHF (congestive heart failure) July 12, 2024 10:03am Hypertrophic cardiomyopathy June 10:03am Longstanding persistent atrial fibrillat ion July 12, 2024 10:03am Presence of permanent cardiac pacemaker July 12, 2024 10:03am Chronic combined systolic an d diastolic CHF (congestive heart failure) September 25, 2024 10:59am Hypertrophic cardiomyopathy September 25 10:59am Longstanding persistent atrial fibrillat ion September 25, 2024 10:59am Presence of permanent cardiac pacemaker September 25, 2024 10:59am Anemia October 08, 2024 10:22 am Chief Complaint Admit Date EORDERS- BMP AND THYROID July 09, 2024 11:09am Hospital FU July 12, 2024 9:24am 6 m fu July 12, 2024 10:03am INT ORDERS, 2 ORDERING DOCTORS July 12, 2024 10:48am Pacer Check Remote July 29, 2024 4:4 7am Pacer Check Remote August 03, 2024 8:5 4pm 3 M FU September 25, 2024 10:59 am INT LAB AND XRAY ORDERS September 25, 2024 1 2:11pm EORDER 2024 10:24 am 3 M FU October 08, 2024 10:22 am Pacer Check Remote October 21, 2024 8:34a m Reason for Visit Admit Date Anemia July 12, 2024 9:24am Chronic combined systolic an d diastolic CHF (congestive heart failure) July 12, 2024 10:03am Hypertrophic cardiomyopathy June 10:03am Longstanding persistent atrial fibrillat ion July 12, 2024 10:03am Presence of permanent cardiac pacemaker July 12, 2024 10:03am Chronic combined systolic an d diastolic CHF (congestive heart failure) September 25, 2024 10:59am Hypertrophic cardiomyopathy September 25 10:59am Longstanding persistent atrial fibrillat ion September 25, 2024 10:59am Presence of permanent cardiac pacemaker September 25, 2024 10:59am Anemia October 08, 2024 10:22 am Chief Complaint Admit Date Hospital FU July 12, 2024 9:24am 6 m fu July 12, 2024 10:03am INT ORDERS, 2 ORDERING DOCTORS July 12, 2024 10:48am Pacer Check Remote July 29, 2024 4:4 7am Pacer Check Remote August 03, 2024 8:5 4pm 3 M FU September 25, 2024 10:59 am INT LAB AND XRAY ORDERS September 25, 2024 1 2:11pm EORDER 2024 10:24 am 3 M FU October 08, 2024 10:22 am Pacer Check Remote October 21, 2024 8:34a m 1 M FU November 07, 2024 10:3 3am Reason for Visit Admit Date Anemia July 12, 2024 9:24am Chronic combined systolic an d diastolic CHF (congestive heart failure) July 12, 2024 10:03am Hypertrophic cardiomyopathy June 10:03am Longstanding persistent atrial fibrillat ion July 12, 2024 10:03am Presence of permanent cardiac pacemaker July 12, 2024 10:03am Chronic combined systolic an d diastolic CHF (congestive heart failure) September 25, 2024 10:59am Hypertrophic cardiomyopathy September 25 10:59am Longstanding persistent atrial fibrillat ion September 25, 2024 10:59am Presence of permanent cardiac pacemaker September 25, 2024 10:59am Anemia October 08, 2024 10:22 am Anemia November 07, 2024 10:3 3am Chronic combined systolic an d diastolic CHF (congestive heart failure) November 07, 2024 10:33am Hypertrophic cardiomyopathy November 07, 10:33am Longstanding persistent atrial fibrillat ion November 07, 2024 10:33am Presence of permanent cardiac pacemaker November 07, 2024 10:33am Chief Complaint Admit Date Hospital July 12, 2024 9:24am 6 m July 12, 2024 10:03am INT ORDERS, 2 ORDERING DOCTORS July 12, 2024 10:48am Pacer Check Remote July 29, 2024 4:4 7am Pacer Check Remote August 03, 2024 8:5 4pm 3 M FU September 25, 2024 10:59 am INT LAB AND XRAY ORDERS September 25, 2024 1 2:11pm EORDER 2024 10:24 am 3 M FU October 08, 2024 10:22 am Pacer Check Remote October 21, 2024 8:34a m Pacer Check Remote October 27, 2024 9:42 pm 1 M FU November 07, 2024 10:3 3am Chief Complaint Admit Date 3 M FU September 25, 2024 10:59 am INT LAB AND XRAY ORDERS September 25, 2024 1 2:11pm EORDER 2024 10:24 am 3 M FU October 08, 2024 10:22 am Pacer Check Remote October 21, 2024 8:34a m Pacer Check Remote October 27, 2024 9:42 pm 1 M FU November 07, 2024 10:3 3am CHF EXACERBATION AND CKD December 02, 2024 8:45pm Reason for Visit Admit Date Chronic combined systolic an d diastolic CHF (congestive heart failure) September 25, 2024 10:59am Hypertrophic cardiomyopathy September 25 10:59am Longstanding persistent atrial fibrillat ion September 25, 2024 10:59am Presence of permanent cardiac pacemaker September 25, 2024 10:59am Anemia October 08, 2024 10:22 am Anemia November 07, 2024 10:3 3am Chronic combined systolic an d diastolic CHF (congestive heart failure) November 07, 2024 10:33am Hypertrophic cardiomyopathy November 07 025 10:33am Longstanding persistent atrial fibrillat ion November 07, 2024 10:33am Presence of permanent cardiac pacemaker November 07, 2024 10:33am Acute kidney failure December 02, 2024 8:4 5pm CHF (congestive heart failure) November 8:45pm Dyspnea December 02, 2024 8:45 pm Elevated troponin December 02, 2024 8:45 pm Fatigue December 02, 2024 8:45 pm Shortness of breath on exertion November 8:45pm Hyperlipidemia December 02, 2024 8:45 pm Longstanding persistent atrial fibrillat ion December 02, 2024 8:45pm Additional Source Comments INFORMATION SOURCE (unrecogn ized section and content) DATE CREATED AUTHOR 04/23/2018 [facility] DATE CREATED AUTHOR AUTHOR'S ORGANIZ ATION 05/01/2018 [facility] DATE CREATED AUTHOR AUTHOR'S ORGANIZ ATION 11/28/2024 [facility] Goals (unrecognized section and content) Goals may be documented in a n alternate sectionGoals may be documented in an alternate sectionGoals may be documented in an alternate sectionGoals may be documented in an alternate sectionGoals may be documented in an alternate sectionGoals may be documented in an alternate sectionGoals may be documented in an alternate sectionGoals may be documented in an alternate sectionGoals may be documented in an alternate sectionGoals may be documented in an alternate sectionGoals may be documented in an alternate sectionGoals may be documented in an alternate sectionGoals may be documented in an alternate sectionGoals may be documented in an alternate sectionGoals may be documented in an alternate sectionGoals may be documented in an alternate sectionGoals may be documented in an alternate sectionGoals may be documented in an alternate sectionGoals may be documented in an alternate sectionGoals may be documented in an alternate sectionGoals may be documented in an alternate sectionGoals may be documented in an alternate sectionGoals may be documented in an alternate sectionGoals may be documented in an alternate sectionGoals may be documented in an alternate section Care Teams (unrecognized sec tion and content) Team Status: Active Member Role Status Dates Dr. Humaira Churchill MD Primary Care Provider Active Team Status: Inactive Member Role Status Dates Dr. Humaira Churchill MD Primary Care Provider Active Start: June 13, 2024 End: June 13, 2024 Dr. Randall Stoddard MD Attending Provider Active Start: June 13, 2024 End: June 13, 2024 Dr. Randall Stoddard MD Referring Provider Active Start: June 13, 2024 End: June 13, 2024 Team Status: Inactive Member Role Status Dates Dr. Humaira Churchill MD Primary Care Provider Active Start: June 21, 2024 End: June 25, 2024 Dr. Peter Cash DO Emergency Provider Active Start: June 21, 2024 End: June 25, 2024 Dr. Cornelio Licona MD Admit Provider Active Star t: June 21, 2024 End: June 25, 2024 Dr. Cornelio Licona MD Other Provider Active Star t: June 21, 2024 End: June 25, 2024 Dr. Jos Infante MD Attending Provider Active Start: June 21, 2024 End: June 25, 2024 Team Status: Active Member Role Status Dates Dr. Humaira Churchill MD Primary Care Provider Active Start: June 21, 2024 Dr. Peter Cash DO Emergency Provider Active Start: June 21, 2024 Dr. Cornelio Licona MD Attending Provider Active Start: June 21, 2024 Team Status: Active Member Role Status Dates Dr. Humaira Churchill MD Primary Care Provider Active Start: June 21, 2024 Dr. Peter Cash DO Emergency Provider Active Start: June 21, 2024 Dr. Pascual Cruz DO Attending Provider Active S tart: June 21, 2024 Dr. Cornelio Licona MD Referring Provider Active Start: June 21, 2024 Team Status: Active Member Role Status Dates Dr. Humaira Churchill MD Primary Care Provider Active Start: June 21, 2024 Dr. Peter Cash DO Emergency Provider Active Start: June 21, 2024 Dr. Cornelio Licona MD Admit Provider Active Star t: June 21, 2024 Dr. Cornelio Licona MD Referring Provider Active Start: June 21, 2024 Dr. Cornelio Licona MD Other Provider Active Star t: June 21, 2024 Dr. Jaiden Galvez MD Other Provider Active Start: June 21, 2024 Dr. Sandip Razo MD Other Provider Active Start: June 21, 2024 Dr. Gaudencio Arana MD Other Provider Active Star t: June 21, 2024 Dr. Pascual Cruz DO Other Provider Active Start : June 21, 2024 Dr. Cornelio Connell MD Other Provider Active Sta rt: June 21, 2024 Dr. Ryan Jones MD Other Provider Active St art: June 21, 2024 Dr. Jose Arechiga MD Other Provider Active S tart: June 21, 2024 Dr. Shawnee Lopez MD Other Provider Active Start: June 21, 2024 Dr. Mohit Bird MD Other Provider Active Start : June 21, 2024 Dr. Niranjan Regalado MD Other Provider Active Start: June 21, 2024 Dr. Kb Penaloza MD Other Provider Active Start : June 21, 2024 Dr. Ioana Reed MD Other Provider Active Star t: June 21, 2024 Dr. Mary Anderson MD Other Provider Active Sta rt: June 21, 2024 Dr. Ni Tate MD Other Provider Active Sta rt: June 21, 2024 Dr. Lazaro Prakash MD Other Provider Active Star t: June 21, 2024 Dr. Galileo Gonzalez MD Other Provider Active St art: June 21, 2024 Dr. Thuan Baird MD Other Provider Active Star t: June 21, 2024 Dr. Getachew Leon DO Other Provider Active St art: June 21, 2024 Dr. Camilo Flowers MD Other Provider Active Start: June 21, 2024 Dr. Faustino Padilla MD Other Provider Active St art: June 21, 2024 Dr. Varun Orozco DO Other Provider Active Start: June 21, 2024 Dr. Gamal Beasley MD Other Provider Active Star t: June 21, 2024 Dr. Guillermo Watkins MD Other Provider Active Sta rt: June 21, 2024 Dr. Sergio Jones DO Attending Provider Active Start: June 21, 2024 Team Status: Active Member Role Status Dates Dr. Humaira Churchill MD Primary Care Provider Active Start: June 22, 2024 Dr. Peter Cash DO Emergency Provider Active Start: June 22, 2024 Dr. Cornelio Licona MD Admit Provider Active Star t: June 22, 2024 Dr. Cornelio Licona MD Attending Provider Active Start: June 22, 2024 Dr. Cornelio Licona MD Other Provider Active Star t: June 22, 2024 Dr. Jaiden Galvez MD Other Provider Active Start: June 22, 2024 Dr. Sandip Razo MD Other Provider Active Start: June 22, 2024 Dr. Gaudencio Arana MD Other Provider Active Star t: June 22, 2024 Dr. Pascual Cruz DO Other Provider Active Start : June 22, 2024 Dr. Cornelio Connell MD Other Provider Active Sta rt: June 22, 2024 Dr. Ryan Joens MD Other Provider Active St art: June 22, 2024 Dr. Jose Arechiga MD Other Provider Active S tart: June 22, 2024 Dr. Shawnee Lopez MD Other Provider Active Start: June 22, 2024 Dr. Mohit Bird MD Other Provider Active Start : June 22, 2024 Dr. Niranjan Regalado MD Other Provider Active Start: June 22, 2024 Dr. Kb Penaloza MD Other Provider Active Start : June 22, 2024 Dr. Ioana Reed MD Other Provider Active Star t: June 22, 2024 Dr. Mary Anderson MD Other Provider Active Sta rt: June 22, 2024 Dr. Ni Tate MD Other Provider Active Sta rt: June 22, 2024 Dr. Lazaro Prakash MD Other Provider Active Star t: June 22, 2024 Dr. Galileo Gonzalez MD Other Provider Active St art: June 22, 2024 Dr. Thuan Baird MD Other Provider Active Star t: June 22, 2024 Dr. Getachew Leon DO Other Provider Active St art: June 22, 2024 Dr. Camilo Flowers MD Other Provider Active Start: June 22, 2024 Dr. Faustino Padilla MD Other Provider Active St art: June 22, 2024 Dr. Varun Orozco DO Other Provider Active Start: June 22, 2024 Dr. Gamal Beasley MD Other Provider Active Star t: June 22, 2024 Dr. Guillermo Watkins MD Other Provider Active Sta rt: June 22, 2024 Team Status: Active Member Role Status Dates Dr. Humaira Churchill MD Primary Care Provider Active Start: June 22, 2024 Dr. Peter Cash DO Emergency Provider Active Start: June 22, 2024 Dr. Cornelio Licona MD Admit Provider Active Star t: June 22, 2024 Dr. Cornelio Licona MD Referring Provider Active Start: June 22, 2024 Dr. Cornelio Licona MD Other Provider Active Star t: June 22, 2024 Dr. Jaiden Galvez MD Other Provider Active Start: June 22, 2024 Dr. Sandip Razo MD Other Provider Active Start: June 22, 2024 Dr. Gaudencio Arana MD Other Provider Active Star t: June 22, 2024 Dr. Pascual Cruz DO Other Provider Active Start : June 22, 2024 Dr. Cornelio Connell MD Other Provider Active Sta rt: June 22, 2024 Dr. Ryan Jones MD Other Provider Active St art: June 22, 2024 Dr. Jose Arechiga MD Other Provider Active S tart: June 22, 2024 Dr. Shawnee Lopez MD Other Provider Active Start: June 22, 2024 Dr. Mohit Bird MD Other Provider Active Start : June 22, 2024 Dr. Niranjan Regalado MD Other Provider Active Start: June 22, 2024 Dr. Kb Penaloza MD Other Provider Active Start : June 22, 2024 Dr. Ioana Reed MD Other Provider Active Star t: June 22, 2024 Dr. Mary Anderson MD Other Provider Active Sta rt: June 22, 2024 Dr. Ni Tate MD Other Provider Active Sta rt: June 22, 2024 Dr. Lazaro Prakash MD Other Provider Active Star t: June 22, 2024 Dr. Galileo Gonzalez MD Other Provider Active St art: June 22, 2024 Dr. Thuan Baird MD Other Provider Active Star t: June 22, 2024 Dr. Getachew Leon DO Other Provider Active St art: June 22, 2024 Dr. Camilo Flowers MD Other Provider Active Start: June 22, 2024 Dr. Faustino Padilla MD Other Provider Active St art: June 22, 2024 Dr. Varun Orozco DO Other Provider Active Start: June 22, 2024 Dr. Gamal Beasley MD Other Provider Active Star t: June 22, 2024 Dr. Guillermo Watkins MD Other Provider Active Sta rt: June 22, 2024 Dr. Sergio Jones DO Attending Provider Active Start: June 22, 2024 Team Status: Active Member Role Status Dates Dr. Humaira Churchill MD Primary Care Provider Active Start: June 23, 2024 Dr. Peter Cash DO Emergency Provider Active Start: June 23, 2024 Dr. Cornelio Licona MD Admit Provider Active Star t: June 23, 2024 Dr. Cornelio Licona MD Attending Provider Active Start: June 23, 2024 Dr. Cornelio Licona MD Other Provider Active Star t: June 23, 2024 Dr. Jaiden Galvez MD Other Provider Active Start: June 23, 2024 Dr. Sandip Razo MD Other Provider Active Start: June 23, 2024 Dr. Gaudencio Arana MD Other Provider Active Star t: June 23, 2024 Dr. Pascual Cruz DO Other Provider Active Start : June 23, 2024 Dr. Cornelio Connell MD Other Provider Active Sta rt: June 23, 2024 Dr. Ryan Jones MD Other Provider Active St art: June 23, 2024 Dr. Jose Arechiga MD Other Provider Active S tart: June 23, 2024 Dr. Shawnee Lopez MD Other Provider Active Start: June 23, 2024 Dr. Mohit Bird MD Other Provider Active Start : June 23, 2024 Dr. Niranjan Regalado MD Other Provider Active Start: June 23, 2024 Dr. Kb Penaloza MD Other Provider Active Start : June 23, 2024 Dr. Ioana Reed MD Other Provider Active Star t: June 23, 2024 Dr. Mary Anderson MD Other Provider Active Sta rt: June 23, 2024 Dr. Ni Tate MD Other Provider Active Sta rt: June 23, 2024 Dr. Lazaro Prakash MD Other Provider Active Star t: June 23, 2024 Dr. Galileo Gonzalez MD Other Provider Active St art: June 23, 2024 Dr. Thuan Baird MD Other Provider Active Star t: June 23, 2024 Dr. Getachew Leon DO Other Provider Active St art: June 23, 2024 Dr. Camilo Flowers MD Other Provider Active Start: June 23, 2024 Dr. Faustino Padilla MD Other Provider Active St art: June 23, 2024 Dr. Varun Orozco DO Other Provider Active Start: June 23, 2024 Dr. Gamal Beasley MD Other Provider Active Star t: June 23, 2024 Dr. Guillermo Watkins MD Other Provider Active Sta rt: June 23, 2024 Team Status: Active Member Role Status Dates Dr. Humaira Churchill MD Primary Care Provider Active Start: June 24, 2024 Dr. Peter Cash DO Emergency Provider Active Start: June 24, 2024 Dr. Cornelio Licona MD Admit Provider Active Star t: June 24, 2024 Dr. Cornelio Licona MD Referring Provider Active Start: June 24, 2024 Dr. Cornelio Licona MD Other Provider Active Star t: June 24, 2024 Dr. Jos Infante MD Other Provider Active Start: June 24, 2024 Dr. Pascual Cruz DO Attending Provider Active S tart: June 24, 2024 Team Status: Active Member Role Status Dates Dr. Humaira Churchill MD Primary Care Provider Active Start: June 24, 2024 Dr. Peter Cash DO Emergency Provider Active Start: June 24, 2024 Dr. Cornelio Licona MD Admit Provider Active Star t: June 24, 2024 Dr. Cornelio Licona MD Other Provider Active Star t: June 24, 2024 Dr. Jos Infante MD Attending Provider Active Start: June 24, 2024 Dr. Jos Infante MD Other Provider Active Start: June 24, 2024 Team Status: Active Member Role Status Dates Dr. Humaira Churchill MD Primary Care Provider Active Start: June 25, 2024 Dr. Peter Cash DO Emergency Provider Active Start: June 25, 2024 Dr. Cornelio Licona MD Admit Provider Active Star t: June 25, 2024 Dr. Cornelio Licona MD Other Provider Active Star t: June 25, 2024 Dr. Jos Infante MD Attending Provider Active Start: June 25, 2024 Dr. Jos Infante MD Other Provider Active Start: June 25, 2024 Team Status: Inactive Member Role Status Dates Dr. Humaira Churchill MD Primary Care Provider Active Start: July 02, 2024 End: July 02, 2024 Dr. Humaira Churchill MD Attending Provider Active Start: July 02, 2024 End: July 02, 2024 Dr. Humaira Churchill MD Referring Provider Active Start: July 02, 2024 End: July 02, 2024 Team Status: Inactive Member Role Status Dates Dr. Humaira Churchill MD Primary Care Provider Active Start: July 09, 2024 End: July 09, 2024 Dr. Humaira Churchill MD Attending Provider Active Start: July 09, 2024 End: July 09, 2024 Dr. Humaira Churchill MD Referring Provider Active Start: July 09, 2024 End: July 09, 2024 Team Status: Inactive Member Role Status Dates Dr. Humaira Churchill MD Primary Care Provider Active Start: July 12, 2024 End: July 12, 2024 Dr. Humaira Churchill MD Referring Provider Active Start: July 12, 2024 End: July 12, 2024 Dr. Sergio Jones DO Attending Provider Active Start: July 12, 2024 End: July 12, 2024 Team Status: Inactive Member Role Status Dates Dr. Humaira Churchill MD Primary Care Provider Active Start: July 12, 2024 End: July 12, 2024 Dr. Humaira Churchill MD Referring Provider Active Start: July 12, 2024 End: July 12, 2024 Joann Correa PA, PA Attending Provider Active Start: July 12, 2024 End: July 12, 2024 Team Status: Inactive Member Role Status Dates Dr. Humaira Churchill MD Primary Care Provider Active Start: July 12, 2024 End: July 12, 2024 Dr. Humaira Churchill MD Attending Provider Active Start: July 12, 2024 End: July 12, 2024 Dr. Humaira Churchill MD Referring Provider Active Start: July 12, 2024 End: July 12, 2024 Joann Correa PA, PA Other Provider Active Start: July 12, 2024 End: July 12, 2024 Team Status: Inactive Member Role Status Dates Dr. Humaira Churchill MD Primary Care Provider Active Start: July 29, 2024 End: July 29, 2024 Dr. Jamie Christina MD Attending Provider Active S tart: July 29, 2024 End: July 29, 2024 Dr. Jamie Christina MD Referring Provider Active S tart: July 29, 2024 End: July 29, 2024 Team Status: Inactive Member Role Status Dates Dr. uHmaira Churchill MD Primary Care Provider Active Start: August 03, 2024 End: August 03, 2024 Dr. Jamie Christina MD Attending Provider Active S tart: August 03, 2024 End: August 03, 2024 Dr. Jamie Christina MD Referring Provider Active S tart: August 03, 2024 End: August 03, 2024 Team Status: Inactive Member Role Status Dates Dr. Humaira Churchill MD Primary Care Provider Active Start: August 30, 2024 End: August 30, 2024 Dr. Humaira Churchill MD Attending Provider Active Start: August 30, 2024 End: August 30, 2024 Dr. Humaira Churchill MD Referring Provider Active Start: August 30, 2024 End: August 30, 2024 Team Status: Inactive Member Role Status Dates Dr. Humaira Churchill MD Primary Care Provider Active Start: September 25, 2024 End: September 25, 2024 Dr. Humaira Churchill MD Referring Provider Active Start: September 25, 2024 End: September 25, 2024 León H Georgina NE[employer] E[employer]ERN ARCHAEOLOGY LECTURER, NEAR EASTERN ARCHAEOLOGY LECTURER-C Attending Provider Active S tart: September 25, 2024 End: September 25, 2024 Team Status: Inactive Member Role Status Dates Dr. Humaira Churchill MD Primary Care Provider Active Start: September 25, 2024 End: September 25, 2024 León H Roof NE[employer] EASTERN ARCHAEOLOGY LECTURER, NEAR EASTERN ARCHAEOLOGY LECTURER-C Attending Provider Active S tart: September 25, 2024 End: September 25, 2024 León H Roof NEAR EASTERN ARCHAEOLOGY LECTURER, NEAR EASTERN ARCHAEOLOGY LECTURER-C Referring Provider Active S tart: September 25, 2024 End: September 25, 2024 Team Status: Active Member Role Status Dates Dr. Humaira Churchill MD Primary Care Provider Active Start: 2024 León H Roof NE[employer] EASTERN ARCHAEOLOGY LECTURER, NEAR EASTERN ARCHAEOLOGY LECTURER-C Attending Provider Active S tart: 2024 León H Roof NEAR EASTERN ARCHAEOLOGY LECTURER, NEAR EASTERN ARCHAEOLOGY LECTURER-C Referring Provider Active S tart: 2024 Team Status: Inactive Member Role Status Dates Dr. Humaira Churchill MD Primary Care Provider Active Start: October 08, 2024 End: October 08, 2024 Dr. Humaira Churchill MD Referring Provider Active Start: October 08, 2024 End: October 08, 2024 Dr. Sergio Jones DO Attending Provider Active Start: October 08, 2024 End: October 08, 2024 Team Status: Active Member Role Status Dates Dr. Humaira Churchill MD Primary Care Provider Active Start: June 06, 2024 Dr. Jos Mejia DO Admit Provider Active Start: June 06, 2024 Dr. Jos Mejia DO Referring Provider Active Start: June 06, 2024 Dr. Jos Mejia DO Other Provider Active Start: June 06, 2024 Dr. Royce Nix MD Other Provider Active Start: June 06, 2024 Dr. Rochelle Merritt MD Attending Provider Active Start: June 06, 2024 Dr. Rochelle Merritt MD Other Provider Active St art: June 06, 2024 Team Status: Active Member Role Status Dates Dr. Humaira Churchill MD Primary Care Provider Active Start: June 07, 2024 Dr. Jos Mejia DO Admit Provider Active Start: June 07, 2024 Dr. Jos Mejia DO Other Provider Active Start: June 07, 2024 Dr. Royce Nix MD Other Provider Active Start: June 07, 2024 Dr. Rochelle Merritt MD Attending Provider Active Start: June 07, 2024 Dr. Rochelle Merritt MD Other Provider Active St art: June 07, 2024 Team Status: Inactive Member Role Status Dates Dr. Humaira Churchill MD Primary Care Provider Active Start: June 07, 2024 End: June 09, 2024 Dr. Jos Mejia DO Admit Provider Active Start: June 07, 2024 End: June 09, 2024 Dr. Jos Mejia DO Attending Provider Active Start: June 07, 2024 End: June 09, 2024 Dr. Jos Mejia DO Referring Provider Active Start: June 07, 2024 End: June 09, 2024 Dr. Royce Nix MD Other Provider Active Start: June 07, 2024 End: June 09, 2024 Dr. Rochelle Merritt MD Other Provider Active St art: June 07, 2024 End: June 09, 2024 Team Status: Active Member Role Status Dates Dr. Humaira Churchill MD Primary Care Provider Active Start: June 08, 2024 Dr. Jos Mejia DO Admit Provider Active Start: June 08, 2024 Dr. Jos Mejia DO Other Provider Active Start: June 08, 2024 Dr. Royce Nix MD Other Provider Active Start: June 08, 2024 Dr. Rochelle Merritt MD Attending Provider Active Start: June 08, 2024 Dr. Rochelle Merritt MD Other Provider Active St art: June 08, 2024 Team Status: Active Member Role Status Dates Dr. Humaira Churchill MD Primary Care Provider Active Start: June 09, 2024 Dr. Jos Mejia DO Admit Provider Active Start: June 09, 2024 Dr. Jos Mejia DO Other Provider Active Start: June 09, 2024 Dr. Royce Nix MD Other Provider Active Start: June 09, 2024 Dr. Rochelle Merritt MD Attending Provider Active Start: June 09, 2024 Dr. Rochelle Merritt MD Other Provider Active St art: June 09, 2024 Team Status: Active Member Role Status Dates Dr. Humaira Churchill MD Family Provider Active Dr. Humaira Churchill MD Primary Care Provider Active Team Status: Inactive Member Role Status Dates Dr. Humaira Churchill MD Primary Care Provider, Referrin g Provider Active Dr. Jamie Christina MD Attending Provider Active Team Status: Inactive Member Role Status Dates Dr. Humaira Churchill MD Primary Care Provider, Referrin g Provider Active Clair Crawford Attending Provider Active Team Status: Inactive Member Role Status Dates Dr. Jamie Christina MD Attending Provider, Referring Pro vider Active Dr. Humaira Churchill MD Primary Care Provider, Family P rovider Active León Erickson NE[employer] E[employer]ERN ARCHAEOLOGY LECTURER, NEAR EASTERN ARCHAEOLOGY LECTURER-C Other Provider Active Team Status: Inactive Member Role Status Dates Dr. Humaira Churchill MD Primary Care Prov ider, Attending Provider, Referring Provider Active Team Status: Inactive Member Role Status Dates Dr. Humaira Churchill MD Primary Care Provider Active Dr. Uli Shaffer DO Attending Provider, Emergency P rovider Active Team Status: Inactive Member Role Status Dates Dr. Humaira Churchill MD Primary Care Provider Active Clair Crawford Active Dr. Jamie Christina MD Attending Provider, Referring Pro vider Active Team Status: Active Member Role Status Dates Dr. Jamie Christina MD Attending Provider, Referring Pro vider Active Dr. Humaira Churchill MD Primary Care Provider, Family P rovider Active León Erickson NE[employer] EASTERN ARCHAEOLOGY LECTURER, NEAR EASTERN ARCHAEOLOGY LECTURER-C Other Provider Active Team Status: Inactive Member Role Status Dates Dr. Humaira Churchill MD Primary Care Provider Active Dr. Jamie Christina MD Attending Provider, Referring Pro vider Active Team Status: Active Member Role Status Dates Dr. Humaira Churchill MD Primary Care Provider, Attendin g Provider Active Team Status: Inactive Member Role Status Dates Dr. Jamie Christina MD Attending Provider, Referring Pro vider Active Dr. Humaira Churchill MD Primary Care Provider, Family Carol ross Active Team Status: Inactive Member Role Status Dates Dr. Jamie Christina MD Attending Provider Active S tart: March 26, 2024 End: April 13, 2024 Dr. Jamie Christina MD Referring Provider Active S tart: March 26, 2024 End: April 13, 2024 Dr. Humaira Churchill MD Primary Care Provider Active Start: March 26, 2024 End: April 13, 2024 Dr. Humaira Churchill MD Family Provider Active St art: March 26, 2024 End: April 13, 2024 Joann Correa PA, PA Other Provider Active Start: March 26, 2024 End: April 13, 2024 Team Status: Inactive Member Role Status Dates Dr. Humaira Churchill MD Primary Care Provider Active Start: March 26, 2024 End: March 26, 2024 Dr. Jos Mejia DO Attending Provider Active Start: March 26, 2024 End: March 26, 2024 Dr. Jos Mejia DO Referring Provider Active Start: March 26, 2024 End: March 26, 2024 Team Status: Active Member Role Status Dates Dr. Humaira Churchill MD Primary Care Provider Active Start: March 26, 2024 End: March 26, 2024 Dr. Jamie Christina MD Attending Provider Active S tart: March 26, 2024 End: March 26, 2024 Dr. Jos Mejia DO Referring Provider Active Start: March 26, 2024 End: March 26, 2024 Team Status: Inactive Member Role Status Dates Dr. Humaira Churchill MD Primary Care Provider Active Start: April 12, 2024 End: April 12, 2024 Joann Correa PA, PA Attending Provider Active Start: April 12, 2024 End: April 12, 2024 Joann Correa PA, PA Referring Provider Active Start: April 12, 2024 End: April 12, 2024 Team Status: Active Member Role Status Dates Dr. Humaira Churchill MD Primary Care Provider Active Start: April 12, 2024 Dr. Jamie Christina MD Attending Provider Active S tart: April 12, 2024 Team Status: Inactive Member Role Status Dates Dr. Humaira Churchill MD Primary Care Provider Active Start: April 28, 2024 End: April 28, 2024 Dr. Jamie Christina MD Attending Provider Active S tart: April 28, 2024 End: April 28, 2024 Dr. Jamie Christina MD Referring Provider Active S tart: April 28, 2024 End: April 28, 2024 Team Status: Inactive Member Role Status Dates Dr. Jamie Christina MD Attending Provider Active S tart: May 10, 2024 End: May 10, 2024 Dr. Jamie Christina MD Referring Provider Active S tart: May 10, 2024 End: May 10, 2024 Dr. Humaira Churchill MD Primary Care Provider Active Start: May 10, 2024 End: May 10, 2024 Dr. Humaira Churchill MD Family Provider Active St art: May 10, 2024 End: May 10, 2024 Joann RENE, PA Other Provider Active Start: May 10, 2024 End: May 10, 2024 Team Status: Inactive Member Role Status Dates Dr. Jamie Christina MD Attending Provider Active S tart: May 31, 2024 End: May 31, 2024 Dr. Jamie Christina MD Referring Provider Active S tart: May 31, 2024 End: May 31, 2024 Dr. Humaira Churchill MD Primary Care Provider Active Start: May 31, 2024 End: May 31, 2024 Dr. Humaira Churchill MD Family Provider Active St art: May 31, 2024 End: May 31, 2024 Joann Correa PA, PA Other Provider Active Start: May 31, 2024 End: May 31, 2024 Team Status: Active Member Role Status Dates Dr. Humaira Churchill MD Primary Care Provider Active Start: July 12, 2024 Dr. Humaira Churchill MD Attending Provider Active Start: July 12, 2024 Dr. Humaira Churchill MD Referring Provider Active Start: July 12, 2024 Joann Correa PA, PA Other Provider Active Start: July 12, 2024 Team Status: Inactive Member Role Status Dates Dr. Humaira Churchill MD Primary Care Provider Active Start: 2024 End: 2024 León Erickson NE[employer] EASTERN ARCHAEOLOGY LECTURER, NEAR EASTERN ARCHAEOLOGY LECTURER-C Attending Provider Active S tart: 2024 End: 2024 León Erickson NEAR EASTERN ARCHAEOLOGY LECTURER, NEAR EASTERN ARCHAEOLOGY LECTURER-C Referring Provider Active S tart: 2024 End: 2024 Team Status: Inactive Member Role Status Dates Dr. Humaira Churchill MD Primary Care Provider Active Start: October 21, 2024 End: October 21, 2024 Dr. Jamie Christina MD Attending Provider Active S tart: October 21, 2024 End: October 21, 2024 Team Status: Inactive Member Role Status Dates Dr. Humaira Churchill MD Primary Care Provider Active Start: October 21, 2024 End: October 21, 2024 Dr. Jamie Christina MD Attending Provider Active S tart: October 21, 2024 End: October 21, 2024 Dr. Jamie Christina MD Referring Provider Active S tart: October 21, 2024 End: October 21, 2024 Team Status: Inactive Member Role Status Dates Dr. Humaira Churchill MD Primary Care Provider Active Start: November 07, 2024 End: November 07, 2024 Dr. Humaira Chucrhill MD Referring Provider Active Start: November 07, 2024 End: November 07, 2024 León Erickson NEAR EASTERN ARCHAEOLOGY LECTURER, NEAR EASTERN ARCHAEOLOGY LECTURER-C Attending Provider Active S tart: November 07, 2024 End: November 07, 2024 Team Status: Active Member Role/Relationship Status Dates Dr. Humaira Churchill MD Primary Care Provider Active Team Status: Inactive Member Role/Relationship Status Dates Dr. Humaira Churchill MD Primary Care Provider Active Start: July 12, 2024 End: July 12, 2024 Dr. Humaira Churchill MD Referring Provider Active Start: July 12, 2024 End: July 12, 2024 Dr. Sergio Jones DO Attending Provider Active Start: July 12, 2024 End: July 12, 2024 Team Status: Inactive Member Role/Relationship Status Dates Dr. Humaira Churchill MD Primary Care Provider Active Start: July 12, 2024 End: July 12, 2024 Dr. Humaira Churchill MD Referring Provider Active Start: July 12, 2024 End: July 12, 2024 Joann Correa PA, PA Attending Provider Active Start: July 12, 2024 End: July 12, 2024 Team Status: Inactive Member Role/Relationship Status Dates Dr. Humaira Churchill MD Primary Care Provider Active Start: July 12, 2024 End: July 12, 2024 Dr. Humaira Churchill MD Attending Provider Active Start: July 12, 2024 End: July 12, 2024 Dr. Humaira Churchill MD Referring Provider Active Start: July 12, 2024 End: July 12, 2024 Joann Correa PA, PA Other Provider Active Start: July 12, 2024 End: July 12, 2024 Team Status: Inactive Member Role/Relationship Status Dates Dr. Humaira Churchill MD Primary Care Provider Active Start: July 29, 2024 End: July 29, 2024 Dr. Jamie Christina MD Attending Provider Active S tart: July 29, 2024 End: July 29, 2024 Dr. Jamie Christina MD Referring Provider Active S tart: July 29, 2024 End: July 29, 2024 Team Status: Inactive Member Role/Relationship Status Dates Dr. Humaira Churchill MD Primary Care Provider Active Start: August 03, 2024 End: August 03, 2024 Dr. Jamie Christina MD Attending Provider Active S tart: August 03, 2024 End: August 03, 2024 Dr. Jamie Christina MD Referring Provider Active S tart: August 03, 2024 End: August 03, 2024 Team Status: Inactive Member Role/Relationship Status Dates Dr. Humaira Churchill MD Primary Care Provider Active Start: August 30, 2024 End: August 30, 2024 Dr. Humaira Churchill MD Attending Provider Active Start: August 30, 2024 End: August 30, 2024 Dr. Humaira Churchill MD Referring Provider Active Start: August 30, 2024 End: August 30, 2024 Team Status: Inactive Member Role/Relationship Status Dates Dr. Humaira Churchill MD Primary Care Provider Active Start: September 25, 2024 End: September 25, 2024 Dr. Humaira Churchill MD Referring Provider Active Start: September 25, 2024 End: September 25, 2024 León Erickson NEAR EASTERN ARCHAEOLOGY LECTURER, NEAR EASTERN ARCHAEOLOGY LECTURER-C Attending Provider Active S tart: September 25, 2024 End: September 25, 2024 Team Status: Inactive Member Role/Relationship Status Dates Dr. Humaira Churchill MD Primary Care Provider Active Start: September 25, 2024 End: September 25, 2024 León H Roof NEAR EASTERN ARCHAEOLOGY LECTURER, NEAR EASTERN ARCHAEOLOGY LECTURER-C Attending Provider Active S tart: September 25, 2024 End: September 25, 2024 León H Roof NEAR EASTERN ARCHAEOLOGY LECTURER, NEAR EASTERN ARCHAEOLOGY LECTURER-C Referring Provider Active S tart: September 25, 2024 End: September 25, 2024 Team Status: Inactive Member Role/Relationship Status Dates Dr. Humaira Churchill MD Primary Care Provider Active Start: 2024 End: 2024 León Erickson NEAR EASTERN ARCHAEOLOGY LECTURER, NEAR EASTERN ARCHAEOLOGY LECTURER-C Attending Provider Active S tart: 2024 End: 2024 León H Roof NEAR EASTERN ARCHAEOLOGY LECTURER, NEAR EASTERN ARCHAEOLOGY LECTURER-C Referring Provider Active S tart: 2024 End: 2024 Team Status: Inactive Member Role/Relationship Status Dates Dr. Humaira Churchill MD Primary Care Provider Active Start: October 08, 2024 End: October 08, 2024 Dr. Humaira Churchill MD Referring Provider Active Start: October 08, 2024 End: October 08, 2024 Dr. Sergio Jones DO Attending Provider Active Start: October 08, 2024 End: October 08, 2024 Team Status: Inactive Member Role/Relationship Status Dates Dr. Humaira Churchill MD Primary Care Provider Active Start: October 21, 2024 End: October 21, 2024 Dr. Jamie Christina MD Attending Provider Active S tart: October 21, 2024 End: October 21, 2024 Dr. Jamie Christina MD Referring Provider Active S tart: October 21, 2024 End: October 21, 2024 Team Status: Inactive Member Role/Relationship Status Dates Dr. Humaira Churchill MD Primary Care Provider Active Start: October 27, 2024 End: October 27, 2024 Dr. Jamie Christina MD Attending Provider Active S tart: October 27, 2024 End: October 27, 2024 Team Status: Inactive Member Role/Relationship Status Dates Dr. Humaira Churchill MD Primary Care Provider Active Start: November 07, 2024 End: November 07, 2024 Dr. Humaira Churchill MD Referring Provider Active Start: November 07, 2024 End: November 07, 2024 León Erickson NEAR EASTERN ARCHAEOLOGY LECTURER, NEAR EASTERN ARCHAEOLOGY LECTURER-C Attending Provider Active S tart: November 07, 2024 End: November 07, 2024 Team Status: Active Member Role/Relationship Status Dates Garry Jay MD Primary Care Provider Active Team Status: Inactive Member Role/Relationship Status Dates Dr. Humaira Churchill MD Primary Care Provider Active Start: August 30, 2024 End: August 30, 2024 Dr. Humaira Churchill MD Attending Provider Active Start: August 30, 2024 End: August 30, 2024 Dr. Humaira Churchill MD Referring Provider Active Start: August 30, 2024 End: August 30, 2024 Team Status: Inactive Member Role/Relationship Status Dates Dr. Humaira Churchill MD Primary Care Provider Active Start: September 25, 2024 End: September 25, 2024 Dr. Humaira Churchill MD Referring Provider Active Start: September 25, 2024 End: September 25, 2024 León [place]on [employer] E[employer]ERN [employer]CHAEOLOGY LECTURER, NEAR EASTERN ARCHAEOLOGY LECTURER-C Attending Provider Active S tart: September 25, 2024 End: September 25, 2024 Team Status: Inactive Member Role/Relationship Status Dates Dr. Humaira Churchill MD Primary Care Provider Active Start: September 25, 2024 End: September 25, 2024 León Erickson NEAR EASTERN ARCHAEOLOGY LECTURER, NEAR EASTERN ARCHAEOLOGY LECTURER-C Attending Provider Active S tart: September 25, 2024 End: September 25, 2024 León Erickson NEAR EASTERN ARCHAEOLOGY LECTURER, NEAR EASTERN ARCHAEOLOGY LECTURER-C Referring Provider Active S tart: September 25, 2024 End: September 25, 2024 Team Status: Inactive Member Role/Relationship Status Dates Dr. Humaira Churchill MD Primary Care Provider Active Start: 2024 End: 2024 León Erickson NEAR EASTERN ARCHAEOLOGY LECTURER, NEAR EASTERN ARCHAEOLOGY LECTURER-C Attending Provider Active S tart: 2024 End: 2024 León Erickson NEAR EASTERN ARCHAEOLOGY LECTURER, NEAR EASTERN ARCHAEOLOGY LECTURER-C Referring Provider Active S tart: 2024 End: 2024 Team Status: Inactive Member Role/Relationship Status Dates Dr. Humaira Churchill MD Primary Care Provider Active Start: October 08, 2024 End: October 08, 2024 Dr. Humaira Churchill MD Referring Provider Active Start: October 08, 2024 End: October 08, 2024 Dr. Sergio Jones DO Attending Provider Active Start: October 08, 2024 End: October 08, 2024 Team Status: Inactive Member Role/Relationship Status Dates Dr. Humaira Churchill MD Primary Care Provider Active Start: October 21, 2024 End: October 21, 2024 Dr. Jamie Christina MD Attending Provider Active S tart: October 21, 2024 End: October 21, 2024 Dr. Jamie Christina MD Referring Provider Active S tart: October 21, 2024 End: October 21, 2024 Team Status: Inactive Member Role/Relationship Status Dates Dr. Humaira Churchill MD Primary Care Provider Active Start: October 27, 2024 End: October 27, 2024 Dr. Jamie Christina MD Attending Provider Active S tart: October 27, 2024 End: October 27, 2024 Dr. Jamie Christina MD Referring Provider Active S tart: October 27, 2024 End: October 27, 2024 Team Status: Inactive Member Role/Relationship Status Dates Dr. Humaira Churchill MD Primary Care Provider Active Start: November 07, 2024 End: November 07, 2024 Dr. Humaira Churchill MD Referring Provider Active Start: November 07, 2024 End: November 07, 2024 León Erickson NE[employer] EASTERN ARCHAEOLOGY LECTURER, NEAR EASTERN ARCHAEOLOGY LECTURER-C Attending Provider Active S tart: November 07, 2024 End: November 07, 2024 Team Status: Active Member Role/Relationship Status Dates Dr. Jules Torres DO Emergency Provider Activ e Start: December 02, 2024 Garry Jay MD Primary Care Provider Active St art: December 02, 2024 Dr. Randall Stoddard MD Admit Provider Active Star t: December 02, 2024 Dr. Randall Stoddard MD Attending Provider Active Start: December 02, 2024 Dr. Jose Ramon Wise MD Other Provider Active St art: December 02, 2024 Dr. Mali Watson DO Other Provider Active Sta rt: December 02, 2024 FOR RECORDS PERTAINING TO PATIENTS WHO ARE OR HAVE BEEN ENROLLED IN A CHEMICAL DEPENDENCY/SUBSTANCEABUSE PROGRAM, SOME INFORMATION MAY BE OMITTED. This clinical summary was aggregated from multiple sources. Caution should be exercised in using it in the provision of clinical care. This summary normalizes information from multiple sources, and as a consequence, information in this document may materially change the coding, format and clinical context of patient data. In addition, data may be omitted in some cases. CLINICAL DECISIONS SHOULD BE BASED ON THE PRIMARY CLINICAL RECORDS. [facility]. provides no warranty or guarantee of the accuracy or completeness of information in this document.
[2024-12-03] VITALS (9 sets, daily range): BP systolic 75–92; BP diastolic 45–66; PULSE 80–84; RESP 16–20; TEMP 36.6–36.8; O2SAT 94–97
[2024-12-03 00:27] LABS: Troponin T High Sens 4 HR 139 ng/L (<=14)
[2024-12-03] MEDS: Albuterol 2.5 MG/3 ML VIAL.NEB. INHALATION ×3 (02:44→19:16)
[2024-12-03 06:55] LABS: Hematocrit 30.7 % (37-47); Hemoglobin 8.8 g/dL (12.0-15.0); Immature Granulocytes Count 0.010 X10^3/uL (0.0-0.0); Mean Corp Hgb Conc 28.7 g/dL (32-36); Mean Corpuscular Volume 90.8 fL (81-99); Mean Platelet Vol. 12.7 fl (6.2-12.0); NRBC Flagged by Analyzer 0 % (0-5); POSITIVE DIFFERENTIAL YES; Platelet Count 161 K/mm3 (150-450); RBC Distribution Width CV 16.9 % (11.6-14.6); RBC Distribution Width SD 55.8 fl (35.1-43.9); Red Blood Count 3.38 M/mm3 (4.2-5.4); White Blood Count 4.9 K/mm3 (4.4-11.0)
[2024-12-03 08:10] LABS: Anion Gap 12 (5-15); BUN 93 mg/dL (4-19); BUN/Creat Ratio 24.2 RATIO (10-20); Calcium,Total 9.5 mg/dL (7.6-11.0); Carbon Dioxide 25.8 mmol/L (21.0-32.0); Chloride 103 mmol/L (98-108); Estimated Creatinine Clearance 12.90 ml/min (50-250); Glucose 198 mg/dL (70-99); Magnesium 2.8 mg/dL (1.5-2.2); Potassium 5.1 mmol/L (3.3-5.1)
[2024-12-03] MEDS: Multivitamin (Healthy Eyes) Capsule 1 CAP PO (08:24)
[2024-12-03] MEDS: Magnesium Chloride 64 MG Delay Rel.Tablet PO (08:24)
--- NOTE | 2024-12-03 09:33 | CON.PCM.CA_ITS ---
Assessment & Plan Assessment/Plan (1) CHF (congestive heart failure): QUALIFIERS: Heart failure type: combined systolic and diastolic H eart failure chronicity: acute on chronic Qualified Code(s): I50.43 - Acute on chronic combined systolic (congestive) and diastolic (congestive) heart failure PLAN: Patient carries a history of hypertrophic obstructive cardiomyopathy. Last EF was 40% in March 2024. There were some segmental wall motion abnormality changes on that echo. The patient was cathed in 2014 and had no significant coronary artery disease. At that time the EF was normal. An echocardiogram will be performed to reevaluate the LV function. The patient does have a history of sick sinus syndrome but has a DDD pacemaker in place. There is actually an ICD that was turned off and she is only utilizing as a permanent pacemaker. The patient is a DNR CCA no intubation. Control of her volume status continues to be an issue given her progressive renal failure and her low cardiac output. Nephrology is evaluating the patient and they have discussed dialysis with her. She is undecided as to how she wants to proceed. The patient is progressive the point that she cannot get around in her house due to her profound shortness of breath and weakness. And further evaluation for possible placement needs to be considered. (2) Acute kidney failure: QUALIFIERS: Acute renal failure type: unspecified Qualified Code(s): N17.9 - Acute kidney failure, unspecified PLAN: Patient has an acute drop in her renal function creatinine was 3.75 on admission it is up to 3.83 today GFR is estimated at 12. Nephrology is consulted and awaiting their input. (3) Elevated troponin: PLAN: The patient's troponins on presentation was 166, 137 and then 139. This is consistent with her metabolic situation with her renal failure and known LV dysfunction. Her BNP is elevated but it is not far above what appeared to be a baseline in September 2024 of 10,000. (4) Anemia: QUALIFIERS: Anemia type: unspecified type Qualified Code(s): D 64.9 - Anemia, unspecified PLAN: Patient had a hemoglobin of 5 back in June 2024. She does have a history of healed gastric and duodenal ulcers by endoscopy. The patient's hemoglobin now is 8.8. She is on Eliquis 5 mg twice daily which is the appropriate dosing for her age weight and creatinine. (5) nursing home current use of anticoagulant: PLAN: Patient remains on Eliquis 5 mg twice daily at the appropriate dose for stroke prevention given her chronic atrial fibrillation. (6) Longstanding persistent atrial fibrillation: PLAN: Most recent ECG shows underlying atrial fibrillation with an accelerated junctional rhythm at 80 bpm. She remains on Eliquis and carvedilol low-dose for rate control. PLAN: Plan 1. Will await nephrology input as to volume management options. 2. Consider lowering her blood pressure holding parameters to the systolic of 90. She reports to me in home environment she is not lightheaded or dizzy when her systolic is 90. 3. Will reevaluate you once we hear from nephrology agree with DNR CCA status and considering placement, palliative care, and possible hospice. HPI Consult Data Date of Consult: 12/03/24 HPI Narrative Reason for Consultation: Progressive volume overload with renal failure and congestive heart failure HPI Narrative: JAUN BUCKNER, is a 79 F who presents with a several day history of PND and orthopnea as well as progressive dyspnea on exertion. The patient is gotten to the point she is weak and cannot get around her house. She had a friend staying with her over the weekend but she had to leave on Monday and had her bring her to the emergency room. The patient has a history of persistent atrial fibrillation and accelerated junctional rhythms. She has a history of hypertrophic cardiomyopathy with a reduced ejection fraction of 40% on the last echocardiogram done in March 2024. The left atrium was severely dilated at that time pulmonary artery pressure was estimated 48 mmHg. There was no real change from a previous echocardiogram in September 2021. The patient's ICD was converted to a permanent pacemaker at her request. She is a DNR CCA with no intubation. The patient was placed on Entresto in the spring 2024. She felt much better and her shortness of breath improved. She was also on Lasix and spironolactone at that time. Currently the patient has had a drop- off in her blood pressure her volume status has been difficult to control due to low blood pressures and rising creatinine. He is followed by nephrology. In June 2024 a month after she had reverse shoulder arthroplasty the patient presented in sepsis with acute anemia and blood loss. Her INR was 8.8 at that time and her hemoglobin was 5. She received transfusions and an EGD showed nonbleeding gastric and duodenal ulcers. Since that point in time her lower extremity edema has been difficult to control. Her Entresto has been cut the dose in half due to hypotension. The patient has been tolerating Eliquis 5 mg twice daily without incident. Currently the patient in her home environment was on carvedilol 3.125 mg twice daily furosemide was increased to 80 mg twice daily 1 week ago. She actually gained 2 pounds since that point in time. She is on Entresto 1 tab twice daily at the lower dose. And spironolactone 25 mg every other day. The patient is now admitted with her creatinine being up to 3.75 and a GFR of 12 shows atrial fibrillation with a junctional rhythm at 80 to 90 bpm her ECG on admission showed an accelerated junctional rhythm at 80 bpm with underlying atrial fibrillation. She had low voltage but no obvious ischemic changes. BNP in September 2024 was 10,169 BNP on admission was 19,000 538. Troponins were expectedly in 166 down to 137 and 139 on the 3 sets. This is consistent with her renal failure and known LV dysfunction. [facility] Medical History Wears glasses Post-menopausal Anxiety Arthritis Back pain Syncope Former smoker Shortness of breath on exertion Hoarseness Hypertension History of stress test History of echocardiogram Cardiology follow-up encounter History of atrial fibrillation Chronic combined systolic and diastolic CHF (congestive heart failure) Hypertrophic cardiomyopathy 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 Longstanding persistent atrial fibrillation Hypothyroidism Secondary pulmonary arterial hypertension Vocal cord paralysis, unilateral complete Sick sinus syndrome Hyperlipidemia Left ventricular diastolic dysfunction FH: sudden cardiac (SCD) Home Medications ?Medication ?Instructions ?Recorded ?Last Taken ?Type aspirin 81 mg chewable tablet 81 mg PO DAILY@0800 Hear t 01/22/15 12/02/24 08:07 History albuterol sulfate 90 mcg/actuation 2 puff inhalation Q 6H PRN 10/14/20 06/06/24 History aerosol inhaler shortness of breath or wheez ing magnesium 200 mg tablet 200 mg PO DAILY replaceme 12/02/24 08:07 History Handicap Parking Placard #1 ea 06/26/23 Unknown Rx sacubitril 24 mg-valsartan 26 mg 1 tab PO BID blood pr essure #180 06/11/24 12/02/24 08:06 Rx tablet (Entresto) tabs levothyroxine 150 mcg tablet 150 mcg PO QDAY thyroid 0 07/12/24 12/02/24 08:07 History spironolactone 50 mg tablet 25 mg PO Q OTHER DAY diure tic 07/12/24 12/02/24 08:06 History pantoprazole 40 mg tablet,delayed 40 mg PO BID gi upse t 30 days #60 07/24/24 12/02/24 08:07 Rx release tabs sucralfate 1 gram tablet (Carafate) 1 g PO TID gastric ups 4 weeks 07/24/24 12/02/24 14:06 Rx #180 tabs apixaban 5 mg tablet (Eliquis) 5 mg PO BID blood thinn #180 tabs 08/08/24 12/02/24 08:07 Rx acetaminophen 500 mg tablet 1,000 mg PO Q8 PRN pain Unknown History ferrous sulfate 324 mg (65 mg 324 mg PO QDAY iron defi cinct 09/25/24 12/02/24 08:07 History iron) tablet,delayed release multivitamin 1 tab PO QAM supplement 09/1212/02/24 08:07 History vit C 250 mg-vit E 90 mg-zinc 40 1 tab PO DAILY supple ment 09/25/24 12/02/24 08:06 History mg-copper 1 so-[id number] capsule (PreserVision AREDS-2) diphenoxylate-atropine 2.5 1 tab PO TID PRN diarrhea # 90 tabs 10/14/24 Unknown Rx mg-0.025 mg tablet (Lomotil) furosemide 40 mg tablet 40 mg PO BID CHF 90 days #18 0 tabs 10/24/24 12/02/24 08:07 Rx carvedilol 3.125 mg tablet 3.125 mg PO BID heart #180 tabs 11/18/24 12/02/24 08:07 Rx Allergy/AdvReac Type Severity Reaction Status Date / Time metoprolol Allergy Severe Abdominal Verified 12/02/24 17:33 pain, poor rate control amoxicillin Allergy Rash Verified 12/02/24 17:33 lisinopril Allergy Dry cough Verified 12/02/24 17:33 risedronate sodium (From AdvReac Rash Verified 12/02/24 17:33 Actonel) Family History Mother Cancer breast Sister Cancer breast and malignant melanoma Diabetes Brother Arrhythmia Surgical History History of laryngoscopy Hx of hemorrhoidectomy History of colonoscopy History of radiofrequency ablation procedure for cardiac arrhythmia (1999) History of hysterectomy Presence of permanent cardiac pacemaker (01/04/12) History of left heart catheterization (03/09/15) History of implantable cardiac defibrillator (ICD) History of dental surgery Hx of LASIK History of vocal cord surgery Social History Smoking Status: Former smoker how long ago did patient quit smokin years ago alcohol intake: never substance use type: does not use caffeine: No ROS Constitutional Constitutional: Reports as per HPI Eyes Eyes: Reports systems reviewed and no addt'l complaints, except as documented ENT HEENT: Reports systems reviewed and no addt'l complaints, except as documented Cardiovascular Cardiovascular: Reports as per HPI Respiratory/Chest Respiratory/Chest: Reports as per HPI Gastrointestinal Gastrointestinal: Reports as per HPI Genitourinary Genitourinary: Reports as per HPI Musculoskeletal Musculoskeletal: Reports as per HPI Integumentary Integumentary: Reports systems reviewed and no addt'l complaints, except as documented Neurologic Neurologic: Reports systems reviewed and no addt'l complaints, except as documented Psychiatric Psychiatric: Reports systems reviewed and no addt'l complaints, except as documented Endocrine Endocrinology: Reports systems reviewed and no addt'l complaints, except as documented Hematologic/Lymphatic Hematologic/Lymphatic: Reports as per HPI Allergic/Immunologic Allergic/Immunologic: Reports systems reviewed and no addt'l complaints, except as documented Physical Exam Const alert and oriented x3 HEENT normocephalic Eyes EOMs intact bilaterally Neck Neck Narrative: Thick neck no JVD noted. Chest Chest Narrative: Increased AP diameter Resp Resp Narrative: Mildly tachypneic Auscultation: breath sounds absent left (Left base.) Cardio Cardio Narrative: Distant heart tones due to body habitus. Rate: regular rate Rhythm: regular rhythm Heart Sounds: S1 normal and S2 normal; Negative for click, gallop or murmur GI GI Narrative: Obese Extremity General Extremity: edema bilateral lower extremity Details: moderate (Tense with bakari changes of the lower extremities. Pitting edema noted up to the mid thigh.) Skin Skin Narrative: Patient has tense erythematous bakari colored skin changes on both lower extremities. Neuro Neuro Narrative: Alert and oriented x 3 Psych mental status grossly normal Risk Stratification Risk Stratification Applicable: Yes Age >/= 65: Yes >/= 3 CAD Risk Factors (HTN, HLD, DM, family hx of CAD, or current smoker): No Aspirin Use in the Past 7 Days: No Severe Angina (>/= episodes in 24 hours): No EKG ST Changes >/= 0.5mm: No Positive Cardiac Marker: Yes VIKTORIYA Risk Stratification Score: 2 VIKTORIYA % Risk: 8% Risk Charges/Coding Visit Charges Inpatient E&M: 97920 Init Hosp L3 Objective Data Vital Signs: Vital Signs Temp Pulse Resp BP Pulse Ox O2 Del Method O2 Flow Rate 97.9 F 83 18 85/45 L 97 Nasal Cannula 2 12/03/24 08:22 12/03/24 08:22 12/03/24 08:22 12/03/24 08:22 12/03/24 08:22 12/03/24 08:22 12/03/24 08:22 Oxygen Flow Rate (L/min) 2 Oxygen Delivery Method Nasal Cannula Weight: 191 lb 2.252 oz Body Mass Index (BMI) 32.8 Intake & Output: Intake and Output for Last 24 Hours 12/01/24 12/02/24 12/03/24 23:59 23:59 23:59 Intake Total 200 / 500 600 / 600 Balance 200 / 500 600 / 600 Lab / Micro Data Attestation: I reviewed the patient's lab results. 12/03/24 06:32 12/03/24 06:32 Labs: Laboratory Results - last 24 hr 12/02/24 19:13: WBC 8.5, RBC 3.71 L, Hgb 9.6 L, Hct 33.5 L, MCV 90.3, MCH 25.9 L , MCHC 28.7 L, RDW Std Deviation 54.7 H, RDW Coeff of Linda 16.6 H, Plt Count 155, MPV 13.0 H, Immature Gran % (Auto) 0.500, Neut % (Auto) 91.2 H, Lymph % (Auto) 3.4 L, Reeves % (Auto) 3.7, Eos % (Auto) 0.6, Baso % (Auto) 0.6, Absolute Neuts (auto) 7.7, Absolute Lymphs (auto) 0.29 L, Nucleated RBC % 0, Sodium 140, Potassium 4.3, Chloride 102, Carbon Dioxide 23.8, Anion Gap 15, BUN 87 H, C reatinine 3.75 H, Estim Creat Clear Calc 13.66 L, Est GFR (MDRD) Non-Af 12 L, B UN/Creatinine Ratio 23.1 H, Glucose 120 H, Calcium 9.6, Magnesium 2.8 H, Total Bilirubin 0.55, Direct Bilirubin 0.30, AST 30, ALT 19, Alkaline Phosphatase 74, Troponin T High Sens 166 H*, [place] [address] H, Total Protein 6.1, Albumin 3.9, Globulin 2.1 L 12/02/24 21:19: Troponin T Hi Sens 2 Hr 137 H* 12/02/24 23:23: Troponin T Hi Sens 4Hr 139 H* 12/03/24 06:32: WBC 4.9, RBC 3.38 L, Hgb 8.8 L, Hct 30.7 L, MCV 90.8, MCH 26.0 L , MCHC 28.7 L, RDW Std Deviation 55.8 H, RDW Coeff of Linda 16.9 H, Plt Count 161, MPV 12.7 H, Immature Gran % (Auto) 0.200, Neut % (Auto) 89.9 H, Lymph % (Auto) 7.2 L, Reeves % (Auto) 2.7, Eos % (Auto) 0.0, Baso % (Auto) 0.0, Absolute Neuts (auto) 4.4, Absolute Lymphs (auto) 0.35 L, Nucleated RBC % 0, Sodium 141, Potassium 5.1, Chloride 103, Carbon Dioxide 25.8, Anion Gap 12, BUN 93 H, C reatinine 3.83 H, Estim Creat Clear Calc 12.90 L, Est GFR (MDRD) Non-Af 12 L, B UN/Creatinine Ratio 24.2 H, Glucose 198 H, Calcium 9.5, Magnesium 2.8 H, TSH 0.773 Micro: Microbiology 12/02/24 18:14 Stool Stool Occult Blood (AALIYAH) - Final Occult Blood Positive Rhythm Strip Rhythm Strip: Junctional rhythm Rate: 80 Cardiology Labs/Tests 12/02/24 19:13: WBC 8.5, RBC 3.71 L, Hgb 9.6 L, Hct 33.5 L, MCV 90.3, MCH 25.9 L , MCHC 28.7 L, Plt Count 155, MPV 13.0 H, Immature Gran % (Auto) 0.500, Neut % (Auto) 91.2 H, Lymph % (Auto) 3.4 L, Reeves % (Auto) 3.7, Eos % (Auto) 0.6, Baso % (Auto) 0.6, Absolute Neuts (auto) 7.7, Nucleated RBC % 0, Sodium 140, Potassium 4.3, Chloride 102, Carbon Dioxide 23.8, Anion Gap 15, BUN 87 H, Creatinine 3.75 H, Est GFR (MDRD) Non-Af 12 L, BUN/Creatinine Ratio 23.1 H, Glucose 120 H, Calcium 9.6, Magnesium 2.8 H, Total Bilirubin 0.55, Direct Bilirubin 0.30 12/03/24 06:32: WBC 4.9, RBC 3.38 L, Hgb 8.8 L, Hct 30.7 L, MCV 90.8, MCH 26.0 L , MCHC 28.7 L, Plt Count 161, MPV 12.7 H, Immature Gran % (Auto) 0.200, Neut % (Auto) 89.9 H, Lymph % (Auto) 7.2 L, Reeves % (Auto) 2.7, Eos % (Auto) 0.0, Baso % (Auto) 0.0, Absolute Neuts (auto) 4.4, Nucleated RBC % 0, Sodium 141, Potassium 5.1, Chloride 103, Carbon Dioxide 25.8, Anion Gap 12, BUN 93 H, Creatinine 3.83 H, Est GFR (MDRD) Non-Af 12 L, BUN/Creatinine Ratio 24.2 H, Glucose 198 H, Calcium 9.5, Magnesium 2.8 H Rhythm: EKG: ECHO: Stress Test: Cardiac Cath: PCI: CT Surgery: Holter monitor: EPS: PPM: CXR: Chest CT Scan: Radiography Diagnostic Testing: Radiology Impression Chest X-Ray 12/02/24 19:55 IMPRESSION: Cardiomegaly with mild congestion. Reading Location: [facility]
--- NOTE | 2024-12-03 11:30 | CASEMGMT ---
Addendum entered by Gwen Vera 12/03/24 15:03: Per Serena @ [facility], they are able to accept pt. Addendum entered by Gwen Vera 12/03/24 14:58: Strata: 3 No home O2. She has no preference of DME co, if home O2 is needed @ [place]. Original Note: RN CM SUSTAINABILITY COORDINATOR CM?to room to meet with patient for initial transition planning/care coordination assessment. RN CM?introduced self and role at [facility]. Pt voices understanding and consents to assessment?at this time. Pt resting in bed in no distress at this time. Pt is A/O at this time and answers all questions appropriately. Care providers, pharmacy, and demographics verified/updated at this time. Strata:? PCP: Dr Jay Specialists: [facility]/Cardiology, Dr Pastrana- nephgerhard. Pt states the discussion has arisen recently about possible dialysis. Dr Correia. Pt states she has an endoscope procedure scheduled 12/09. Preferred Pharmacy: [facility] [place]. Otherwise, goes to [facility] in [place] Insurance: [facility] [facility] [employer], [employer] Prescription Benefit: yes LNOK: Pt has 4 siblings. Humaira, friend/neighbor is listed as primary contact and then pt's sister, Juliana. Pt states Humaira is her HCPOA, but this was not found in [employer]. Pt made aware. Living Arrangements: Pt lives alone in one-story home w/3 steps and bilat handrails to enter. Pt reports independent w/ADL's @ baseline. She has been feeling more weak the past weak and a friend has been staying w/her and assisting her in the home, but she had to go leave yesterday and will not be returning until this 12/05. . 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 She reports a great support system, including friend, Humaira, family, and neighbors. Her sister lives 6 miles away and friend/neighbor, Humaira, comes to assist PRN if she is home. She states her sister makes meals at times, she eats TV dinners and makes meals sometimes, and gets groceries delivered from [employer]. Transportation:?Pt states drives self and states no transportation concerns at this time. She is concerned about being able to get in/out of vehicle going home and says she may need transportation set up @ [place], she is not sure yet. She was made aware WC transport would be self-pay. She voices understanding. DME: States has the following DME: shower chair, RTS, grab bars, pulse ox, cane, rollator. She just ordered another rollator that is only ~10 #'s and is hoping she will be able to get it in/out of vehilce on her own. She does not have a medical alert button and states would take info on this. This was provided to pt by DAPHNEY PATTERSON. Pt also provided w/Private-pay caregiver list. Pt states no need for further DME at this time. HHC/SNF: No hx of SNF. Has had [facility] in the past. She states Dr Jay is supposed to be setting up [facility], but it is not started yet. She verifies she still would like [facility] @ [place] and declines wanting list of other HHC options. Call placed to [facility] and referral made. Pt wishes to return home and states has no further concerns with going home at time of discharge. CM?to follow for any further discharge planning/needs. Pt voices no further concerns/needs at this time. Advised pt to ask for CM?if any further questions/concerns/needs arise. Voices understanding. PLAN: Home w/HHC. Referral sent to [facility]. Awaiting response. PT/OT evals pending. Follow for any recommendations. Follow for possible need of W/C van transport home. Follow for possible dialysis. Sabina CONCEPCION RN, CM
--- NOTE | 2024-12-03 18:11 | CON.PCM.RE_ITS ---
Assessment & Plan Assessment/Plan (1) Acute kidney failure: QUALIFIERS: Acute renal failure type: unspecified Qualified Code(s): N17.9 - Acute kidney failure, unspecified (2) Chronic kidney disease, stage 4 (severe): (3) CHF (congestive heart failure): QUALIFIERS: Heart failure chronicity: acute on chronic Heart failure type: combined systolic and diastolic Qualified Code(s): I50.43 - Acute on chronic combined systolic (congestive) and diastolic (congestive) heart failure PLAN: Plan Impression/Plan: The patient is a 79-year-old female with past history of CKD stage G4, hypertension, atrial fibrillation, hypertrophic cardiomyopathy with HFrEF, pulmonary hypertension, and hyperlipidemia. Patient presented to the hospital on 12/02/2024 with 4 to 5-day history of dyspnea and generalized weakness. She is admitted to the hospital for treatment of decompensated heart failure and volume overload. Nephrology is asked to the patient because of acute kidney injury on chronic kidney disease. Acute kidney injury on chronic kidney disease stage G4. Serum creatinine has been around to 2.90 to 3.10 mg/dL in September 2024. Serum creatinine has increased to 3.83 mg/dL today. My suspicion is that the patient has progression of CKD which led to volume overload. There is no urgent need for kidney replacement therapy today. Will restart loop diuretic with careful monitoring of BP. Patient was told that she may ultimately need dialysis to control volume. Will recheck renal function, volume status, acid-base and electrolytes. Volume overload/heart failure. Patient does have history of hypertrophic cardiomyopathy with HFrEF. However, my suspicion is that heart failure/volume overload is more likely due to progression of underlying CKD. Will restart IV furosemide. Will monitor her BP closely while we are diuresing the patient. If patient is refractory to IV loop diuretic or if she continues to gain weight/become more dyspneic, we will consider starting patient on hemodialysis. HPI Consult Data Date of Consult: 12/03/24 HPI Narrative Reason for Consultation: Acute kidney injury HPI Narrative: The patient is a 79-year-old female with past history of CKD stage G4, hypertension, atrial fibrillation, hypertrophic cardiomyopathy with HFrEF, pulmonary hypertension, and hyperlipidemia. Patient presents to the hospital on 12/02/2024 with 1 week history of increasing dyspnea, weight gain and increasing lower extremity edema. Patient also complained of fatigue and generalized weakness. Patient is admitted to hospital for treatment of congestive heart failure. During workup in ED, patient was found to have elevated serum creatinine at 3.75 mg/dL. Nephrology is asked see the patient because of SAVANNA on CKD. Serum creatinine has been around 2.20-2.40 mg/dL as recently as August 2024. Serum creatinine did creep up to 2.90 to 3.10 mg/dL in September 2024. Patient is followed in our office by my partner, Dr. Pastrana. Patient was seen by Dr. Pastrana 1 week ago where she was noticed to have weight gain and increasing edema. Therefore, home dose of oral furosemide was doubled by Dr. Pastrana. Unfortunately, patient did not achieve any weight loss or symptomatic improvement. In fact, she continues to gain weight with higher dose of furosemide. Patient denies chronic use of NSAIDs. She denies lower urinary tract symptoms. [facility] Medical History Wears glasses Post-menopausal Anxiety Arthritis Back pain Syncope Former smoker Shortness of breath on exertion Hoarseness Hypertension History of stress test History of echocardiogram Cardiology follow-up encounter History of atrial fibrillation Chronic combined systolic and diastolic CHF (congestive heart failure) Hypertrophic cardiomyopathy 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 Longstanding persistent atrial fibrillation Hypothyroidism Secondary pulmonary arterial hypertension Vocal cord paralysis, unilateral complete Sick sinus syndrome Hyperlipidemia Left ventricular diastolic dysfunction FH: sudden cardiac (SCD) Home Medications ?Medication ?Instructions ?Recorded ?Last Taken ?Type aspirin 81 mg chewable tablet 81 mg PO DAILY@0800 Hear t 01/22/15 12/02/24 08:07 History albuterol sulfate 90 mcg/actuation 2 puff inhalation Q 6H PRN 10/14/20 06/06/24 History aerosol inhaler shortness of breath or wheez ing magnesium 200 mg tablet 200 mg PO DAILY replaceme 12/02/24 08:07 History Handicap Parking Placard #1 ea 06/26/23 Unknown Rx sacubitril 24 mg-valsartan 26 mg 1 tab PO BID blood pr essure #180 06/11/24 12/02/24 08:06 Rx tablet (Entresto) tabs levothyroxine 150 mcg tablet 150 mcg PO QDAY thyroid 0 07/12/24 12/02/24 08:07 History spironolactone 50 mg tablet 25 mg PO Q OTHER DAY diure tic 07/12/24 12/02/24 08:06 History pantoprazole 40 mg tablet,delayed 40 mg PO BID gi upse t 30 days #60 07/24/24 12/02/24 08:07 Rx release tabs sucralfate 1 gram tablet (Carafate) 1 g PO TID gastric ups 4 weeks 07/24/24 12/02/24 14:06 Rx #180 tabs apixaban 5 mg tablet (Eliquis) 5 mg PO BID blood thinn #180 tabs 08/08/24 12/02/24 08:07 Rx acetaminophen 500 mg tablet 1,000 mg PO Q8 PRN pain Unknown History ferrous sulfate 324 mg (65 mg 324 mg PO QDAY iron defi cinct 09/25/24 12/02/24 08:07 History iron) tablet,delayed release multivitamin 1 tab PO QAM supplement 09/1212/02/24 08:07 History vit C 250 mg-vit E 90 mg-zinc 40 1 tab PO DAILY supple ment 09/25/24 12/02/24 08:06 History mg-copper 1 [id number] capsule (PreserVision AREDS-2) diphenoxylate-atropine 2.5 1 tab PO TID PRN diarrhea # 90 tabs 10/14/24 Unknown Rx mg-0.025 mg tablet (Lomotil) furosemide 40 mg tablet 40 mg PO BID CHF 90 days #18 0 tabs 10/24/24 12/02/24 08:07 Rx carvedilol 3.125 mg tablet 3.125 mg PO BID heart #180 tabs 11/18/24 12/02/24 08:07 Rx Allergy/AdvReac Type Severity Reaction Status Date / Time metoprolol Allergy Severe Abdominal Verified 12/02/24 17:33 pain, poor rate control amoxicillin Allergy Rash Verified 12/02/24 17:33 lisinopril Allergy Dry cough Verified 12/02/24 17:33 risedronate sodium (From AdvReac Rash Verified 12/02/24 17:33 Actonel) Family History Mother Cancer breast Sister Cancer breast and malignant melanoma Diabetes Brother Arrhythmia Surgical History History of laryngoscopy Hx of hemorrhoidectomy History of colonoscopy History of radiofrequency ablation procedure for cardiac arrhythmia (1999) History of hysterectomy Presence of permanent cardiac pacemaker (01/04/12) History of left heart catheterization (03/09/15) History of implantable cardiac defibrillator (ICD) History of dental surgery Hx of LASIK History of vocal cord surgery Social History Smoking Status: Former smoker how long ago did patient quit smokin years ago alcohol intake: never substance use type: does not use caffeine: No ROS ROS Narrative As per HPI, otherwise noncontributory Physical Exam Narrative General: Alert and oriented x3, NAD. HEENT: Normocephalic, atraumatic. Mucous membrane moist without erythema. PERRLA, EOMI. Hearing is intact. Neck: Supple, no JVD. Trachea is midline. No thyromegaly or lymphadenopathy. Cardiovascular: Normal S1, S2. No rubs, murmurs, or gallops. Respiratory: Breath sounds decreased bilaterally at bases. Abdomen: Normal bowel sounds, soft, nontender, no guarding or rebound, no organomegaly. Extremities: No clubbing or cyanosis. There is 3+ edema of lower extremities Musculoskeletal: Full passive range of motion, no joint swelling. Psychiatric: Normal mood and affect. Skin: Warm and dry, no rash. Neurologic: Cranial nerve II to XII are grossly intact. No focal neurologic deficits. Lab / Micro Data 12/03/24 06:32 12/03/24 06:32 Labs: Laboratory Results - last 24 hr 12/02/24 19:13: WBC 8.5, RBC 3.71 L, Hgb 9.6 L, Hct 33.5 L, MCV 90.3, MCH 25.9 L , MCHC 28.7 L, RDW Std Deviation 54.7 H, RDW Coeff of Linda 16.6 H, Plt Count 155, MPV 13.0 H, Immature Gran % (Auto) 0.500, Neut % (Auto) 91.2 H, Lymph % (Auto) 3.4 L, [place] % (Auto) 3.7, Eos % (Auto) 0.6, Baso % (Auto) 0.6, Absolute Neuts (auto) 7.7, Absolute Lymphs (auto) 0.29 L, Nucleated RBC % 0, Sodium 140, Potassium 4.3, Chloride 102, Carbon Dioxide 23.8, Anion Gap 15, BUN 87 H, C reatinine 3.75 H, Estim Creat Clear Calc 13.66 L, Est GFR (MDRD) Non-Af 12 L, B UN/Creatinine Ratio 23.1 H, Glucose 120 H, Calcium 9.6, Magnesium 2.8 H, Total Bilirubin 0.55, Direct Bilirubin 0.30, AST 30, ALT 19, Alkaline Phosphatase 74, Troponin T High Sens 166 H*, [place] [address] H, Total Protein 6.1, Albumin 3.9, Globulin 2.1 L 12/02/24 21:19: Troponin T Hi Sens 2 Hr 137 H* 12/02/24 23:23: Troponin T Hi Sens 4Hr 139 H* 12/03/24 06:32: WBC 4.9, RBC 3.38 L, Hgb 8.8 L, Hct 30.7 L, MCV 90.8, MCH 26.0 L , MCHC 28.7 L, RDW Std Deviation 55.8 H, RDW Coeff of Linda 16.9 H, Plt Count 161, MPV 12.7 H, Immature Gran % (Auto) 0.200, Neut % (Auto) 89.9 H, Lymph % (Auto) 7.2 L, [place] % (Auto) 2.7, Eos % (Auto) 0.0, Baso % (Auto) 0.0, Absolute Neuts (auto) 4.4, Absolute Lymphs (auto) 0.35 L, Nucleated RBC % 0, Sodium 141, Potassium 5.1, Chloride 103, Carbon Dioxide 25.8, Anion Gap 12, BUN 93 H, C reatinine 3.83 H, Estim Creat Clear Calc 12.90 L, Est GFR (MDRD) Non-Af 12 L, B UN/Creatinine Ratio 24.2 H, Glucose 198 H, Calcium 9.5, Magnesium 2.8 H, TSH 0.773 Micro: Microbiology 12/02/24 18:14 Stool Stool Occult Blood (AALIYAH) - Final Occult Blood Positive Rhythm Strip Rhythm Strip: Junctional rhythm Rate: 80 Imaging Radiology Impression Chest X-Ray 12/02/24 19:55 IMPRESSION: Cardiomegaly with mild congestion. Reading Location: [facility] Echocardiogram 12/02/24 21:40 Interpretation Summary Normal LV size. The left ventricular ejection fraction is 45 %. Severe eccentric left ventricular hypertrophy. Stage 3 diastolic dysfunction. [place] : Severely Hypokinetic. Compared to previous study, the left ventricular systolic function is the same.. Ordering Physician: Randall Stoddard Performed By: Marisol Hunter RDCS
--- NOTE | 2024-12-03 20:04 | PN.HOSP_ITS ---
Reason for Visit Chief Complaint: Shortness of breath Subjective Subjective Patient was seen and examined today, I talked at length with her and her daughter who was in the room at the time my examination. I also talked with nephrology about her care, nephrology states that the patient would want dialysis if necessary. At this time, nephrology is going to place the patient on IV Lasix to try to encourage diuresis. Echocardiogram was performed today which showed an EF of 45% which is minimally improved over her last echocardiogram that was done last year. I talked briefly with cardiology about her care today. Objective Data Objective Data Vital Signs: Vital Signs Temp Pulse Resp BP Pulse Ox O2 Del Method O2 Flow Rate 98.2 F 84 16 85/51 L 94 Nasal Cannula 2 12/03/24 13:26 12/03/24 19:17 12/03/24 19:17 12/03/24 13:26 12/03/24 13:26 12/03/24 14:00 12/03/24 14:00 Oxygen Flow Rate (L/min) 2 Oxygen Delivery Method Nasal Cannula Weight: 86.7 kg Body Mass Index (BMI) 32.8 Intake & Output: Intake and Output for Last 24 Hours 12/01/24 12/02/24 12/03/24 23:59 23:59 23:59 Intake Total 200 / 500 900 / 900 Balance 200 / 500 900 / 900 Lab / Micro Data 12/03/24 06:32 12/04/24 06:27 Labs: Laboratory Results - last 24 hr 12/02/24 19:13: Troponin T High Sens 166 H*, [place] [address] H 12/02/24 21:19: Troponin T Hi Sens 2 Hr 137 H* 12/02/24 23:23: Troponin T Hi Sens 4Hr 139 H* 12/03/24 06:32: WBC 4.9, RBC 3.38 L, Hgb 8.8 L, Hct 30.7 L, MCV 90.8, MCH 26.0 L , MCHC 28.7 L, RDW Std Deviation 55.8 H, RDW Coeff of Linda 16.9 H, Plt Count 161, MPV 12.7 H, Immature Gran % (Auto) 0.200, Neut % (Auto) 89.9 H, Lymph % (Auto) 7.2 L, [place] % (Auto) 2.7, Eos % (Auto) 0.0, Baso % (Auto) 0.0, Absolute Neuts (auto) 4.4, Absolute Lymphs (auto) 0.35 L, Nucleated RBC % 0, Sodium 141, Potassium 5.1, Chloride 103, Carbon Dioxide 25.8, Anion Gap 12, BUN 93 H, C reatinine 3.83 H, Estim Creat Clear Calc 12.90 L, Est GFR (MDRD) Non-Af 12 L, B UN/Creatinine Ratio 24.2 H, Glucose 198 H, Calcium 9.5, Magnesium 2.8 H, TSH 0.773 Micro: Microbiology 12/02/24 18:14 Stool Stool Occult Blood (AALIYAH) - Final Occult Blood Positive Radiography Diagnostic Testing: Radiology Impression Chest X-Ray 12/02/24 19:55 IMPRESSION: Cardiomegaly with mild congestion. Reading Location: [facility] Echocardiogram 12/02/24 21:40 Interpretation Summary Normal LV size. The left ventricular ejection fraction is 45 %. Severe eccentric left ventricular hypertrophy. Stage 3 diastolic dysfunction. [place] : Severely Hypokinetic. Compared to previous study, the left ventricular systolic function is the same.. Ordering Physician: Randall Stoddard Performed By: Marisol Hunter RDCS Rhythm Strip Rhythm Strip: Junctional rhythm Rate: 80 Physical Exam Const alert, oriented x3 and no apparent distress General Appearance: cooperative, well kempt and well developed Orientation / Consciousness: awake, oriented to person, oriented to place and oriented to time HEENT normocephalic, head/scalp atraumatic and moist oral mucous membranes Eyes PERRL, EOMs intact bilaterally and conjunctivae normal Neck supple, no JVD, thyroid normal and no carotid bruits General: trachea midline Resp normal respiratory effort Resp Narrative: Inspiratory rales at the bases bilaterally Auscultation: rales bilateral base; Negative for rhonchi or wheezes Cardio regular rate, regular rhythm, S1 normal heart sound, S2 normal heart sound, no murmurs, no rub and no gallops GI normal to inspection, nondistended, normoactive bowel sounds, soft to palpation, non-tender and non-distended Extremity no clubbing, cyanosis or edema Skin no rashes or lesions noted General Skin Exam: no breakdown Neuro oriented x3, CN's II-XII intact bilaterally, no focal motor deficits and no sensory deficits noted Sensorium / Orientation: awake and alert Speech: speech normal Psych affect normal Assessment & Plan Assessment/Plan (1) CHF (congestive heart failure): QUALIFIERS: Heart failure type: combined systolic and diastolic H eart failure chronicity: acute on chronic Qualified Code(s): I50.43 - Acute on chronic combined systolic (congestive) and diastolic (congestive) heart failure PLAN: Plan 1. Acute on chronic intermediate congestive heart failure-patient's echocardiogram today showed a normal EF of 45%, continue IV diuresis per nephrology, patient is being seen in consultation by cardiology, patient's Entresto was stopped due to hypotension and kidney failure #2 acute kidney injury on a backdrop of stage IV chronic kidney disease- nephrology is participating in her care, according to nephrology, she told them that she would consent to dialysis if needed #3 hypothyroidism-patient is on Synthroid #4 history of hypertrophic cardiomyopathy-patient's ejection fraction is currently 45% #5 chronic atrial fibrillation-patient is on Eliquis and carvedilol Total clinical time spent by myself addressing the patient's medical issues, reviewing all of her data, and collaborating with the patient care team: 50 minutes Charges/Coding Visit Charges Inpatient E&M: 24940 [facility] Hosp L3
[2024-12-04] VITALS (8 sets, daily range): BP systolic 78–89; BP diastolic 52–63; PULSE 78–86; RESP 16–24; TEMP 36.2–36.8; O2SAT 93–99; BMI 34.7
[2024-12-04 07:34] LABS: Albumin, Serum 3.8 g/dL (3.4-4.8); Anion Gap 13 (5-15); BUN 96 mg/dL (4-19); BUN/Creat Ratio 20.6 RATIO (10-20); Calcium,Total 9.4 mg/dL (7.6-11.0); Carbon Dioxide 24.3 mmol/L (21.0-32.0); Chloride 101 mmol/L (98-108); Estimated Creatinine Clearance 10.96 ml/min (50-250); Glucose 104 mg/dL (70-99); Potassium 4.7 mmol/L (3.3-5.1)
--- NOTE | 2024-12-04 08:51 | PCM.PN.CARD ---
Subjective Subjective Patient resting comfortably in bed. Blood pressure remains low in the 88 systolic range. Echo done yesterday showed an EF of 45% with moderate RV dysfunction severe biatrial enlargement and a small pleural effusion. There was stage III diastolic dysfunction noted. Patient reports that her lower extremity edema appears to be slightly better. Objective Data Vital Signs: Vital Signs Temp Pulse Resp BP Pulse Ox O2 Del Method O2 Flow Rate 97.8 F 85 16 83/63 L 98 Nasal Cannula 2 12/04/24 08:27 12/04/24 08:27 12/04/24 08:27 12/04/24 08:27 12/04/24 08:27 12/04/24 08:27 12/04/24 08:27 Oxygen Flow Rate (L/min) 2 Oxygen Delivery Method Nasal Cannula Weight: 201 lb 15.095 oz Body Mass Index (BMI) 34.7 Intake & Output: Intake and Output for Last 24 Hours 12/02/24 12/03/24 12/04/24 23:59 23:59 23:59 Intake Total 200 / 500 900 / 1300 700 / 700 Balance 200 / 500 900 / 1300 700 / 700 Lab / Micro Data Attestation: I reviewed the patient's lab results. 12/03/24 06:32 12/04/24 06:27 Labs: Laboratory Results - last 24 hr 12/04/24 06:27: Sodium 139, Potassium 4.7, Chloride 101, Carbon Dioxide 24.3, Anion Gap 13, BUN 96 H, Creatinine 4.64 H, Estim Creat Clear Calc 10.96 L, Est GFR (MDRD) Non-Af 9 L, BUN/Creatinine Ratio 20.6 H, Glucose 104 H, Calcium 9.4, Phosphorus 5.3 H, Albumin 3.8 Rhythm Strip Rhythm Strip: Junctional rhythm Rate: 80 Ectopy: None (Underlying rhythm appears to be atrial fibrillation with a junctional rhythm driving her heart rate.) Cardiology Labs/Tests 12/04/24 06:27: Sodium 139, Potassium 4.7, Chloride 101, Carbon Dioxide 24.3, Anion Gap 13, BUN 96 H, Creatinine 4.64 H, Est GFR (MDRD) Non-Af 9 L, BUN/Creatinine Ratio 20.6 H, Glucose 104 H, Calcium 9.4, Phosphorus 5.3 H Rhythm: EKG: ECHO: Stress Test: Cardiac Cath: PCI: CT Surgery: Holter monitor: EPS: PPM: CXR: Chest CT Scan: Radiography Diagnostic Testing: Radiology Impression Echocardiogram 12/02/24 21:40 Interpretation Summary Normal LV size. The left ventricular ejection fraction is 45 %. Severe eccentric left ventricular hypertrophy. Stage 3 diastolic dysfunction. [place] : Severely Hypokinetic. Compared to previous study, the left ventricular systolic function is the same.. Ordering Physician: Randall Stoddard Performed By: Marisol Hunter RDCS Physical Exam Const alert and oriented x3 HEENT normocephalic Eyes EOMs intact bilaterally Chest inspection of chest normal Resp normal respiratory effort Auscultation: wheezes inspiratory wheezes (Scant over the right upper lobe) and diminished lung sounds bilateral lower Cardio Rate: regular rate Rhythm: regular rhythm Heart Sounds: S1 normal and S2 normal; Negative for click, gallop or murmur Extremity General Extremity: edema bilateral lower extremity Details: moderate Skin Skin Narrative: Skin over the lower extremities is seems to be less tense. Is consistent with hyperkeratosis. Neuro Neuro Narrative: Alert and oriented x 3 Psych mental status grossly normal Assessment & Plan Assessment/Plan (1) Chronic kidney disease, stage 4 (severe): PLAN: Patient's renal issues being evaluated and treated by nephrology. Her creatinine is increased to 4.64 today. It does appear that some of her edema is better in her lower extremities. (2) Chronic combined systolic and diastolic CHF (congestive heart failure): PLAN: Patient is echocardiogram shows ejection fraction of 45% with a combination of both systolic and diastolic dysfunction. She does have right-sided failure as well. I feel the combination of her renal failure and her mild to moderate heart failure is combining to create this difficult to manage volume status. From a cardiovascular standpoint the patient should be able to tolerate dialysis. That her blood pressure is extremely low today off of all antihypertensive therapies. She is not a candidate for any afterload reduction therapy at this point in time given her blood pressure. Her heart rate is well-controlled she remains in accelerated junctional rhythm at 80 bpm and the underlying rhythm is atrial fibrillation which is persistent and chronic. PLAN: Plan 1. Will defer to nephrology for further evaluation and treatment options for volume control. 2. We do not have any room to add any afterload reduction therapy or other guideline directed medical therapy for heart failure. 3. Given the patient's ejection fraction of 45% and her right-sided failure with no left-sided valvular disease points to some primary pulmonary issues as well. 4. At this point in time I do not feel that we have anything else to offer from a cardiovascular standpoint. 5. If further assistance is needed please reconsult the [place] [facility]. Charges/Coding Visit Charges Inpatient E&M: 06955 Subs Hosp L2
[2024-12-04] MEDS: Albuterol 2.5 MG/3 ML VIAL.NEB. INHALATION ×3 (11:17→22:30)
--- NOTE | 2024-12-04 15:24 | CASEMGMT ---
DAPHNEY PATTERSON updated by hospitalist that patient would benefit from SNF at discharge for additional rehab. Hospitalist updated RN CM that patient may need outpatient HD at discharge. RN CM in to discuss discharge planning with patient. Patient states she would like SNF at discharge. A list of SNF providers including quality and resource use data and consistent with the patient?s preferred geographical region, medical needs, and insurance network were provided from the [employer]. RN YESENIA asked patient to review list and provide top 5 preferences, patient voiced understanding. Patient inquired about outpatient HD at discharge. RN CM inquire about patient's preferences for outpatient HD. Patient states she prefers [facility]. RN CM informed patient that RN CM will make referral once confirmed with job service consultant that patient will require outpatient HD at discharge. Patient voiced understanding and had no further questions. DAPHNEY PATTERSON paged job service consultant requesting call back to inquire if outpatient HD setup should be initiated, awaiting call back. CM will continue to follow this patient and plan for a safe discharge.
--- NOTE | 2024-12-04 16:13 | EX.PCM.CON.S ---
Assessment & Plan Assessment/Plan (1) Acute kidney failure: QUALIFIERS: Acute renal failure type: unspecified Qualified Code(s): N17.9 - Acute kidney failure, unspecified PLAN: Patient is a 79-year-old female admitted for progressive dyspnea with apparent volume overload that is been refractory to loop diuretics. Patient has a history of CKD, but this diagnosis was reportedly given just 6 months ago following a shoulder operation. Surgery has been asked to consider placement of a tunneled hemodialysis catheter for initiation of hemodialysis given the patient's persistent symptoms (potassium is within normal limits and BUN is elevated but not overly so). Given patient's handedness, history of left-sided pacer, and history of left-sided PICC line will plan to place tunneled right sided hemodialysis catheter tomorrow. I was informed by patient's hospitalist service that anticoagulation was held since yesterday. Therefore timing will be appropriate for placement tomorrow anticipate approximately 1130. Will notify patient and primary team with any significant changes. Please hold patient n.p.o. past midnight. Please obtain sign consent for right possible left hemodialysis catheter insertion. Thank you for this consultation Jose Ramon Hughes MD General Surgery Endocrine Surgery Pager: [facility] [address] [place] [address], [address] [place] [address] Office: [phone] (2) Chronic kidney disease, stage 4 (severe): HPI Consult Data Date of Consult: 12/04/24 HPI Narrative Reason for Consultation: Tunneled hemodialysis catheter insertion HPI Narrative: JAUN BUCKNER, is a 79 F who presented to [facility] with complaints of progressive shortness of breath and swelling 12/02/2024. She has been working with nephrology on an outpatient basis to try to manage the symptoms and was recently prescribed a doubling of her Lasix to 80 mg twice daily. She was told to expect a 10 pound weight loss but instead gained 2 and half pounds. She acknowledges that her urine output has been rather minimal. She states that she was first made aware of renal dysfunction 6 months ago when she was perioperative from a shoulder operation with orthopedic surgery. She describes anesthetic?related complications following that procedure. Patient is right-handed and has history of left-sided pacemaker (previous ICD removed approximately 15yrs ago). Additionally patient reports history of catheter not otherwise specified (EMR gives report of a left-sided PICC line) in last several months that was short-lived. [facility] Medical History Wears glasses Post-menopausal Anxiety Arthritis Back pain Syncope Former smoker Shortness of breath on exertion Hoarseness Hypertension History of stress test History of echocardiogram Cardiology follow-up encounter History of atrial fibrillation Chronic combined systolic and diastolic CHF (congestive heart failure) Hypertrophic cardiomyopathy 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 Longstanding persistent atrial fibrillation Hypothyroidism Secondary pulmonary arterial hypertension Vocal cord paralysis, unilateral complete Sick sinus syndrome Hyperlipidemia Left ventricular diastolic dysfunction FH: sudden cardiac (SCD) Home Medications ?Medication ?Instructions ?Recorded ?Last Taken ?Type aspirin 81 mg chewable tablet 81 mg PO DAILY@0800 Heart 01/22/15 12/02/24 08:07 History albuterol sulfate 90 mcg/actuation 2 puff inhalation Q6H PRN 10/14/20 06/06/24 History aerosol inhaler shortness of breath or wheezing magnesium 200 mg tablet 200 mg PO DAILY replaceme 09/21/21 12/02/24 08:07 History Handicap Parking Placard #1 ea 06/26/23 Unknown Rx sacubitril 24 mg-valsartan 26 mg 1 tab PO BID blood pressure #180 06/11/24 12/02/24 08:06 Rx tablet (Entresto) tabs levothyroxine 150 mcg tablet 150 mcg PO QDAY thyroid 07/12/24 12/02/24 08:07 History spironolactone 50 mg tablet 25 mg PO Q OTHER DAY diuretic 07/12/24 12/02/24 08:06 History pantoprazole 40 mg tablet,delayed 40 mg PO BID gi upset 30 days #60 07/24/24 12/02/24 08:07 Rx release tabs sucralfate 1 gram tablet (Carafate) 1 g PO TID gastric ups 4 weeks 07/24/24 12/02/24 14:06 Rx #180 tabs apixaban 5 mg tablet (Eliquis) 5 mg PO BID blood thinn #180 tabs 08/08/24 12/02/24 08:07 Rx acetaminophen 500 mg tablet 1,000 mg PO Q8 PRN pain 09/25/24 Unknown History ferrous sulfate 324 mg (65 mg 324 mg PO QDAY iron deficinct 09/25/24 12/02/24 08:07 History iron) tablet,delayed release multivitamin 1 tab PO QAM supplement 09/25/24 12/02/24 08:07 History vit C 250 mg-vit E 90 mg-zinc 40 1 tab PO DAILY supplement 09/25/24 12/02/24 08:06 History mg-copper 1 [id number] capsule (PreserVision AREDS-2) diphenoxylate-atropine 2.5 1 tab PO TID PRN diarrhea #90 tabs 10/14/24 Unknown Rx mg-0.025 mg tablet (Lomotil) furosemide 40 mg tablet 40 mg PO BID CHF 90 days #180 tabs 10/24/24 12/02/24 08:07 Rx carvedilol 3.125 mg tablet 3.125 mg PO BID heart #180 tabs 11/18/24 12/02/24 08:07 Rx Allergy/AdvReac Type Severity Reaction Status Date / Time metoprolol Allergy Severe Abdominal Verified 12/02/24 17:33 pain, poor rate control amoxicillin Allergy Rash Verified 12/02/24 17:33 lisinopril Allergy Dry cough Verified 12/02/24 17:33 risedronate sodium (From AdvReac Rash Verified 12/02/24 17:33 Actonel) Family History Mother Cancer breast Sister Cancer breast and malignant melanoma Diabetes Brother Arrhythmia Surgical History History of laryngoscopy Hx of hemorrhoidectomy History of colonoscopy History of radiofrequency ablation procedure for cardiac arrhythmia (1999) History of hysterectomy Presence of permanent cardiac pacemaker (01/04/12) History of left heart catheterization (03/09/15) History of implantable cardiac defibrillator (ICD) History of dental surgery Hx of LASIK History of vocal cord surgery Social History Smoking Status: Former smoker how long ago did patient quit smokin years ago alcohol intake: never substance use type: does not use caffeine: No Physical Exam Const alert Constitutional Narrative: Mildly dyspneic, otherwise appears stated age, informed Neck Neck Narrative: Slight well-healed scars at the base of the left neck, no rashes, no eruption Lab / Micro Data 12/03/24 06:32 12/04/24 06:27 Labs: Laboratory Results - last 24 hr 12/04/24 06:27: Sodium 139, Potassium 4.7, Chloride 101, Carbon Dioxide 24.3, Anion Gap 13, BUN 96 H, Creatinine 4.64 H, Estim Creat Clear Calc 10.96 L, Est GFR (MDRD) Non-Af 9 L, BUN/Creatinine Ratio 20.6 H, Glucose 104 H, Calcium 9.4, Phosphorus 5.3 H, Albumin 3.8 Rhythm Strip Rhythm Strip: Junctional rhythm Rate: 80 Ectopy: None (Underlying rhythm appears to be atrial fibrillation with a junctional rhythm driving her heart rate.) Charges/Coding Visit Charges Inpatient E&M: 77423 Init Hosp L2
--- NOTE | 2024-12-04 18:48 | PN.HOSP_ITS ---
Reason for Visit Chief Complaint: Shortness of breath Subjective Subjective Patient was seen and examined today, I talked to her and her POA who was in the room at the time of my examination. Patient has consented to go to a retirement facility for short-term skilled services, due to her worsening renal function, she will have a tunneled dialysis catheter placed tomorrow, I went over plan of care with nephrology and general surgery. Patient was to undergo dialysis if it would help her. Patient is currently on 2 L of oxygen via nasal cannula. Objective Data Objective Data Vital Signs: Vital Signs Temp Pulse Resp BP Pulse Ox O2 Del Method O2 Flow Rate 98.2 F 86 18 80/52 L 95 Nasal Cannula 2 12/04/24 17:11 12/04/24 17:25 12/04/24 17:25 12/04/24 17:11 12/04/24 17:11 12/04/24 17:11 12/04/24 17:11 Oxygen Flow Rate (L/min) 2 Oxygen Delivery Method Nasal Cannula Weight: 91.6 kg Body Mass Index (BMI) 34.7 Intake & Output: Intake and Output for Last 24 Hours 12/02/24 12/03/24 12/04/24 23:59 23:59 23:59 Intake Total 200 / 500 900 / 1300 700 / 700 Balance 200 / 500 900 / 1300 700 / 700 Lab / Micro Data 12/06/24 06:48 12/06/24 15:20 Labs: Laboratory Results - last 24 hr 12/04/24 06:27: Sodium 139, Potassium 4.7, Chloride 101, Carbon Dioxide 24.3, Anion Gap 13, BUN 96 H, Creatinine 4.64 H, Estim Creat Clear Calc 10.96 L, Est GFR (MDRD) Non-Af 9 L, BUN/Creatinine Ratio 20.6 H, Glucose 104 H, Calcium 9.4, Phosphorus 5.3 H, Albumin 3.8 Micro: Microbiology 12/02/24 18:14 Stool Stool Occult Blood (AALIYAH) - Final Occult Blood Positive Rhythm Strip Rhythm Strip: Junctional rhythm Rate: 80 Ectopy: None (Underlying rhythm appears to be atrial fibrillation with a junctional rhythm driving her heart rate.) Physical Exam Narrative alert, oriented x3 and no apparent distress General Appearance: cooperative, well kempt and well developed Orientation / Consciousness: awake, oriented to person, oriented to place and oriented to time HEENT normocephalic, head/scalp atraumatic and moist oral mucous membranes Eyes PERRL, EOMs intact bilaterally and conjunctivae normal Neck supple, no JVD, thyroid normal and no carotid bruits General: trachea midline Resp normal respiratory effort Resp Narrative: Inspiratory rales at the bases bilaterally Auscultation: rales bilateral base; Negative for rhonchi or wheezes Cardio irregular rate, regular rhythm, S1 normal heart sound, S2 normal heart sound, no murmurs, no rub and no gallops GI normal to inspection, nondistended, normoactive bowel sounds, soft to palpation, non-tender and non-distended Extremity no clubbing, cyanosis or edema Skin no rashes or lesions noted General Skin Exam: no breakdown Neuro oriented x3, CN's II-XII intact bilaterally, no focal motor deficits and no sensory deficits noted Sensorium / Orientation: awake and alert Speech: speech normal Psych affect normal Assessment & Plan Assessment/Plan (1) Acute kidney failure: QUALIFIERS: Acute renal failure type: unspecified Qualified Code(s): N17.9 - Acute kidney failure, unspecified (2) CHF (congestive heart failure): QUALIFIERS: Heart failure type: combined systolic and diastolic H eart failure chronicity: acute on chronic Qualified Code(s): I50.43 - Acute on chronic combined systolic (congestive) and diastolic (congestive) heart failure PLAN: Plan 1. Acute on chronic intermediate congestive heart failure-patient's echocardiogram showed a normal EF of 45%, patient's Lasix was stopped, she will need hemodialysis, tomorrow a tunneled catheter will be placed by general surgery #2 acute kidney injury on a backdrop of stage IV chronic kidney disease- nephrology is participating in her care, according to nephrology, she told them that she would consent to dialysis if needed #3 hypothyroidism-patient is on Synthroid #4 history of hypertrophic cardiomyopathy-patient's ejection fraction is currently 45% #5 chronic atrial fibrillation-patient is on Eliquis and carvedilol Total clinical time spent by myself addressing the patient's medical issues, reviewing all of her data, and collaborating with the patient care team: 35 minutes Charges/Coding Visit Charges Inpatient E&M: 18467 Subs Hosp L2
[2024-12-05] VITALS (20 sets, daily range): BP systolic 70–98; BP diastolic 47–60; PULSE 68–88; RESP 14–20; TEMP 36.1–36.7; O2SAT 94–99; BMI 34.5; BMI 34.4
[2024-12-05] MEDS: Albuterol 2.5 MG/3 ML VIAL.NEB. INHALATION ×2 (04:55→21:51)
[2024-12-05 06:22] LABS: Hematocrit 29.9 % (37-47); Hemoglobin 8.6 g/dL (12.0-15.0); Immature Granulocytes Count 0.040 X10^3/uL (0.0-0.0); Mean Corp Hgb Conc 28.8 g/dL (32-36); Mean Corpuscular Volume 90.6 fL (81-99); Mean Platelet Vol. 12.9 fl (6.2-12.0); NRBC Flagged by Analyzer 0 % (0-5); POSITIVE DIFFERENTIAL YES; Platelet Count 179 K/mm3 (150-450); RBC Distribution Width CV 17.1 % (11.6-14.6); RBC Distribution Width SD 56.5 fl (35.1-43.9); Red Blood Count 3.30 M/mm3 (4.2-5.4); White Blood Count 7.4 K/mm3 (4.4-11.0)
[2024-12-05 06:53] LABS: Albumin, Serum 3.8 g/dL (3.4-4.8); Anion Gap 13 (5-15); BUN 99 mg/dL (4-19); BUN/Creat Ratio 19.0 RATIO (10-20); Calcium,Total 9.2 mg/dL (7.6-11.0); Carbon Dioxide 24.4 mmol/L (21.0-32.0); Chloride 101 mmol/L (98-108); Estimated Creatinine Clearance 9.73 ml/min (50-250); Glucose 112 mg/dL (70-99); Potassium 4.9 mmol/L (3.3-5.1)
--- NOTE | 2024-12-05 08:24 | PN.RENAL_ITS ---
Subjective Subjective Following for SAVANNA on CKD. Patient denies chest pain, dizziness, or nausea. She has dyspnea on exertion. Edema of the lower extremities is subjectively unchanged. Objective Data Objective Data Vital Signs: Vital Signs Temp Pulse Resp BP Pulse Ox O2 Del Method O2 Flow Rate 98 F 78 18 96/53 L 97 Nasal Cannula 2 12/05/24 04:30 12/05/24 04:55 12/05/24 04:55 12/05/24 04:30 12/05/24 07:46 12/05/24 07:46 12/05/24 07:46 Oxygen Flow Rate (L/min) 2 Oxygen Delivery Method Nasal Cannula Weight: 91.4 kg Body Mass Index (BMI) 34.5 Intake & Output: Intake and Output for Last 24 Hours 12/03/24 12/04/24 12/05/24 23:59 23:59 23:59 Intake Total 900 / 1300 700 / 950 250 / 250 Output Total 0 / 0 Balance 900 / 1300 700 / 950 250 / 250 Lab / Micro Data 12/05/24 05:40 12/05/24 05:40 Labs: Laboratory Results - last 24 hr 12/05/24 05:40: WBC 7.4, RBC 3.30 L, Hgb 8.6 L, Hct 29.9 L, MCV 90.6, MCH 26.1 L , MCHC 28.8 L, RDW Std Deviation 56.5 H, RDW Coeff of Linda 17.1 H, Plt Count 179, MPV 12.9 H, Immature Gran % (Auto) 0.500, Neut % (Auto) 84.3 H, Lymph % (Auto) 5.1 L, Knott % (Auto) 8.5, Eos % (Auto) 1.2, Baso % (Auto) 0.4, Absolute Neuts (auto) 6.2, Absolute Lymphs (auto) 0.38 L, Nucleated RBC % 0, Sodium 138, Potassium 4.9, Chloride 101, Carbon Dioxide 24.4, Anion Gap 13, BUN 99 H, C reatinine 5.22 H, Estim Creat Clear Calc 9.73 L*, Est GFR (MDRD) Non-Af 8 L, BUN/Creatinine Ratio 19.0, Glucose 112 H, Calcium 9.2, Phosphorus 5.9 H, Albumin 3.8 Micro: Microbiology 07/21/25 18:14 Stool Stool Occult Blood (AALIYAH) - Final Occult Blood Positive Rhythm Strip Rhythm Strip: Junctional rhythm Rate: 80 Ectopy: None (Underlying rhythm appears to be atrial fibrillation with a junctional rhythm driving her heart rate.) Physical Exam Narrative General: Alert and oriented x3, NAD. Cardiovascular: Normal S1, S2. No rubs, murmurs, or gallops. Respiratory: Breath sounds decreased bilaterally at bases. Abdomen: Normal bowel sounds, soft, nontender, no guarding or rebound, no organomegaly. Extremities: No clubbing or cyanosis. There is 3+ edema of lower extremities Assessment & Plan Assessment/Plan (1) Acute kidney failure: QUALIFIERS: Acute renal failure type: unspecified Qualified Code(s): N17.9 - Acute kidney failure, unspecified (2) Chronic kidney disease, stage 4 (severe): (3) CHF (congestive heart failure): QUALIFIERS: Heart failure chronicity: acute on chronic Heart failure type: combined systolic and diastolic Qualified Code(s): I50.43 - Acute on chronic combined systolic (congestive) and diastolic (congestive) heart failure PLAN: Plan Impression/Plan: The patient is a 79-year-old female with past history of CKD stage G4, hypertension, atrial fibrillation, hypertrophic cardiomyopathy with HFrEF, pulmonary hypertension, and hyperlipidemia. Patient presented to the hospital on 12/02/2024 with 4 to 5-day history of dyspnea and generalized weakness. She is admitted to the hospital for treatment of decompensated heart failure and volume overload. Nephrology is asked to the patient because of acute kidney injury on chronic kidney disease. ESRD. Serum creatinine has been around to 2.90 to 3.10 mg/dL in September 2024. Serum creatinine has increased to 5.22 mg/dL today. My suspicion is that the patient has progression of CKD which led to volume overload. Renal function has continued to deteriorate despite holding diuretics. Therefore, we will start patient on hemodialysis today for volume control. Patient may need midodrine to help with fluid removal. If she does not tolerate volume removal with IHD, we can also consider CRRT/SCUF. Plan is for tunneled dialysis catheter placement with Dr. Hughes then hemodialysis later today. Volume overload/heart failure. Patient does have history of hypertrophic cardiomyopathy with HFrEF. However, my suspicion is that heart failure/volume overload is more likely due to progression of underlying CKD. Unfortunately, she did not respond well to IV furosemide. She remains oliguric. Therefore, we will start patient on hemodialysis today as discussed above.
--- NOTE | 2024-12-05 08:55 | VDUE_ITS ---
Reason For Study Reason For Study: Possible fistula/graft placement. Right Arm Left Arm Cephalic Vein at distal forearm measures 0.25 x 0.28 Cephalic Vein at distal forearm measures 0.11 x 0.12 cm. cm. Cephalic Vein at mid forearm measures 0.24 x 0.30 cm. Cephalic vein not visualized from mid forearm to prox Cephalic Vein proximal forearm measures 0.28 x 0.28 bicep due to IVs and bandages. cm. Cephalic Vein at mid upper arm measures 0.19 x 0.19 Cephalic Vein distal upper arm measures 0.15 x 0.16 cm. cm. Cephalic Vein at proximal upper arm measures 0.26 x Unable to visualize cephalic vein at mid bicep. 0.23 cm. Cephalic Vein at proximal upper arm measures 0.13 x Proximal Basilic vein measures 0.29 x 0.30 cm. 0.13 cm. Mid Basilic vein measures 0.25 x 0.25 cm. Proximal Basilic vein measures 0.37 x 0.32 cm. Distal Basilic vein measures 0.34 x 0.35 cm. Mid Basilic vein measures 0.31 x 0.32 cm. Brachial artery measures 0.32 x 0.32 cm with a Distal Basilic vein measures 0.43 x 0.41 cm. velocity of 83.1 cm/sec. Brachial artery measures 0.35 x 0.37 cm with a Radial artery measures 0.15 x 0.17 cm with a velocity velocity of 72.7 cm/sec. of 30 cm/sec. Radial artery measure 0.20 x 0.23 cm with a velocity of 53.3 cm/sec. VL/Dialysis Vein Map PRE-OP BILAT Interpretation Summary Bilateral upper extremity arteries patent with normal waveforms and measurement s above. Bilateral upper extremity veins patent with measurements above. Limited due to dressings/IV placement Ordering Physician: Melany Garza Referring Physician: Garry Jay Performed By: Danni Robledo RVT ???
[2024-12-05] MEDS: Clindamycin 900 MG/50 ML BAG 75 MG IV (12:24)
[2024-12-05] MEDS: 0.9% Normal Saline 1,000 ML IV.SOLN. 1000 ML OPERA.SITE (12:45)
--- NOTE | 2024-12-05 12:56 | OP.PCM_ITS ---
Procedures Hospitalists Procedures: 11726 Insert Non-tunnel CV Cath Operative Report (Standard) Operative Information Date of Procedure: 12/05/24 Pre-Operative Diagnosis: 1. Acute kidney injury on chronic kidney disease 2. Severe volume overload with CHF exacerbation Post-Operative Diagnosis: Same Surgery/Procedure Performed: Ultrasound and thoracoscopic guided placement of nontunneled hemodialysis catheter dental office receptionist: No Type of Anesthesia: IV Sedation RN Documented Start/Stop Times: Operation Date: 12/05/24 11:30 Case Time Into Pre-Op 12/05/24 10:35 Anesthesia Start 12/05/24 12:07 Into Room 12/05/24 12:07 Procedure Start 12/05/24 12:33 Procedure End 12/05/24 12:55 Anesthesia End 12/05/24 13:01 Out of Room 12/05/24 13:01 Into Recovery 12/05/24 13:05 Out of Recovery 12/05/24 13:29 Procedure Start Time: 12:33 Procedure Stop Time: 12:55 Select all DRAINS/GRAFTS/IMPLANTS that apply: Implanted device ([employer] Elite acute 12 Maori by 16 cm dual-lumen catheter) Implanted device details: Reference [id number], lot [id number] Estimated Blood Loss: 10 Specimen collected: No Description of surgery: Procedure name: Insertion of 12 Maori, dual-lumen central venous catheter (16 cm length) Procedure detail: Patient was brought to the operating room after checking with anesthesia and confirming her consent for a tunneled right possible left hemodialysis catheter. Unfortunately when anesthesia tried to lay her flat she became acutely dyspneic and anesthesia expressed great concern about her inability to even assume a level supine position. Therefore, I made the decision to proceed with a nontunneled hemodialysis at under the name of expediency and minimizing risk. After obtaining consent from patient verbally, patient right neck was prepped and draped in usual sterile fashion. The head was positioned to the left to allow access to the right neck. A formal timeout was conducted confirm patient and procedure. Antibiotics had been administered by anesthesia for procedure prophylaxis. The right internal jugular vein was localized using bedside ultrasound. It appeared to be widely patent with good flow on color Doppler. There is also engorgement of superficial veins draining into the internal jugular vein secondary to patient's volume overload status. On account of patient's hypotension and tenuous hemodynamic status, she was maintained in a reverse Trendelenburg position with minimal sedation. The superficial tissues of the neck were then anesthetized with a local block using 1% Xylocaine (a total of 10 mL was used for the procedure). Under direct ultrasound guidance the vein was accessed with return of dark red blood. Using a Seldinger technique a guidewire was placed with initial resistance provide ultrasound confirmed that it had caught on a sidebranch and it was withdrawn and readvanced without further difficulty. The guidewire tract was then opened at the skin with an 11 blade and dilated dilated. Then the central venous catheter was inserted into the vein. All ports aspirated and flushed ease. The catheter was then sewn in using 0 silk in three-point fixation. X-ray confirmed position within the superior vena cava. Insertion site was cleaned and a chlorhexidine dressing was placed about the catheter to maintain sterility. Patient was then taken to PACU in stable condition for ongoing monitoring. A post procedure chest x-ray was obtained to verify the position of the catheter. Surgical Findings: ? Patent right internal jugular vein ? Multiple more superficial vessels dilated and draining into the internal jugular vein likely secondary to patient volume overload ? Satisfactory position of catheter tip with easy aspiration and flush Complications Complications: No
--- NOTE | 2024-12-05 13:05 | RAD_ITS ---
PROCEDURE: CXR FOR LINE PLACEMENT 12/05/2024 REASON FOR EXAM: STATUS POST LINE PLACEMENT TECHNIQUE: CXR FOR LINE PLACEMENT COMPARISON: December 06, 2024 FINDINGS: There is a central line on the right with its tip in the superior vena cava at the right atrium. There is a left-sided cardiac device with wires in position. There is severe cardiomegaly with prominent central vascular markings and increased interstitial markings consistent with CHF, increased. Moderate bilateral effusions are present which appear increased. Hardware is noted in the right shoulder. RAD/CXR for Line Placement IMPRESSION: There is a central line on the right with its tip in the superior vena cava at the right atrium. There is a left-sided cardiac device with wires in position. There is severe cardiomegaly with prominent central vascular markings and incre ased interstitial markings consistent with CHF, increased. Moderate bilateral effusions are present which appear increased. Reading Location: [facility]
--- NOTE | 2024-12-05 13:11 | PCM.POST.ANE ---
Anesthesia: Postop Eval I Current Vital Signs Temperature: 98.0 F Pulse Rate: 70 Blood Pressure: 79/49 Respiratory Rate: 20 Pulse Ox: 99 Oxygen Delivery Method: Venturi Mask Oxygen Flow Rate (L/min): 6 Assessment Airway patent: Yes Spontaneous unlabored respirations: Yes Mental status: Awake nausea: No Vomiting: No Anesthesia Complication: No Fluid Hydration Crystalloid volume administer (ml): 50 Total IV fluid infused: 50 Progress Note Anesthesia document: Postop Eval 1 completed: Yes
--- NOTE | 2024-12-05 13:46 | CASEMGMT ---
DAPHNEY PATTERSON in to patient's room to discuss SNF preferences. Patient prefers 1. [facility] 2. [facility] 3. [facility]. DAPHNEY PATTERSON updated Discharge Internet Marketing Coordinator to send referrals.
--- NOTE | 2024-12-05 14:38 | CASEMGMT ---
Referral sent to [facility] via Referral Portal. DAPHNEY PATTERSON will continue to follow this patient and plan for a safe discharge.
[2024-12-05] MEDS: 0.9% Saline Lock 10 ML Syringe IV ×2 (15:27→21:43)
--- NOTE | 2024-12-05 20:35 | PN.HOSP_ITS ---
Reason for Visit Chief Complaint: Shortness of breath Subjective Subjective Patient was seen and examined today, due to hypotension and dyspnea, patient could not have a tunneled catheter placed today and a temporary dialysis catheter was placed by general surgery. Dialysis was attempted today but only about an hour and a half of dialysis was carried out due to the patient's low blood pressure. I talked to nephrology briefly today and they recommended the addition of midodrine scheduled. They will try again tomorrow to dialyze the patient. Objective Data Objective Data Vital Signs: Vital Signs Temp Pulse Resp BP Pulse Ox O2 Del Method O2 Flow Rate 97.9 F 75 14 77/60 L 97 Nasal Cannula 1 12/05/24 16:17 12/05/24 16:17 12/05/24 16:17 12/05/24 16:17 12/05/24 16:17 12/05/24 16:17 12/05/24 16:17 Oxygen Flow Rate (L/min) 1 Oxygen Delivery Method Nasal Cannula Weight: 91.4 kg Body Mass Index (BMI) 34.4 Intake & Output: Intake and Output for Last 24 Hours 12/03/24 12/04/24 12/05/24 23:59 23:59 23:59 Intake Total 900 / 1300 700 / 950 300 / 300 Output Total 0 / 0 Balance 900 / 1300 700 / 950 300 / 300 Lab / Micro Data 12/06/24 06:48 12/06/24 15:20 Labs: Laboratory Results - last 24 hr 12/05/24 05:40: WBC 7.4, RBC 3.30 L, Hgb 8.6 L, Hct 29.9 L, MCV 90.6, MCH 26.1 L , MCHC 28.8 L, RDW Std Deviation 56.5 H, RDW Coeff of Linda 17.1 H, Plt Count 179, MPV 12.9 H, Immature Gran % (Auto) 0.500, Neut % (Auto) 84.3 H, Lymph % (Auto) 5.1 L, [place] % (Auto) 8.5, Eos % (Auto) 1.2, Baso % (Auto) 0.4, Absolute Neuts (auto) 6.2, Absolute Lymphs (auto) 0.38 L, Nucleated RBC % 0, Sodium 138, Potassium 4.9, Chloride 101, Carbon Dioxide 24.4, Anion Gap 13, BUN 99 H, C reatinine 5.22 H, Estim Creat Clear Calc 9.73 L*, Est GFR (MDRD) Non-Af 8 L, BUN/Creatinine Ratio 19.0, Glucose 112 H, Calcium 9.2, Phosphorus 5.9 H, Albumin 3.8 Micro: Microbiology 12/02/24 18:14 Stool Stool Occult Blood (AALIYAH) - Final Occult Blood Positive Radiography Diagnostic Testing: Radiology Impression Chest X-Ray 12/05/24 13:05 IMPRESSION: There is a central line on the right with its tip in the superior vena cava at the right atrium. There is a left-sided cardiac device with wires in position. There is severe cardiomegaly with prominent central vascular markings and increased interstitial markings consistent with CHF, increased. Moderate bilateral effusions are present which appear increased. Reading Location: [facility] Rhythm Strip Rhythm Strip: Junctional rhythm Rate: 80 Ectopy: None (Underlying rhythm appears to be atrial fibrillation with a junctional rhythm driving her heart rate.) Physical Exam Narrative alert, oriented x3 and no apparent distress General Appearance: cooperative, well kempt and well developed Orientation / Consciousness: awake, oriented to person, oriented to place and oriented to time HEENT normocephalic, head/scalp atraumatic and moist oral mucous membranes Eyes PERRL, EOMs intact bilaterally and conjunctivae normal Neck supple, no JVD, thyroid normal and no carotid bruits General: trachea midline Resp normal respiratory effort Resp Narrative: Inspiratory rales at the bases bilaterally Auscultation: rales bilateral base; Negative for rhonchi or wheezes Cardio irregular rate, regular rhythm, S1 normal heart sound, S2 normal heart sound, no murmurs, no rub and no gallops GI normal to inspection, nondistended, normoactive bowel sounds, soft to palpation, non-tender and non-distended Extremity no clubbing, cyanosis or edema Skin no rashes or lesions noted General Skin Exam: no breakdown Neuro oriented x3, CN's II-XII intact bilaterally, no focal motor deficits and no sensory deficits noted Sensorium / Orientation: awake and alert Speech: speech normal Psych affect normal Assessment & Plan Assessment/Plan (1) Acute kidney failure: QUALIFIERS: Acute renal failure type: unspecified Qualified Code(s): N17.9 - Acute kidney failure, unspecified (2) CHF (congestive heart failure): QUALIFIERS: Heart failure type: combined systolic and diastolic H eart failure chronicity: acute on chronic Qualified Code(s): I50.43 - Acute on chronic combined systolic (congestive) and diastolic (congestive) heart failure PLAN: Plan 1. Acute on chronic intermediate congestive heart failure-patient's echocardiogram showed a normal EF of 45%, patient's Lasix was stopped, she will need hemodialysis, tomorrow a tunneled catheter will be placed by general surgery #2 acute kidney injury on a backdrop of stage IV chronic kidney disease- nephrology is participating in her care, according to nephrology, she told them that she would consent to dialysis if needed #3 hypothyroidism-patient is on Synthroid #4 history of hypertrophic cardiomyopathy-patient's ejection fraction is currently 45% #5 chronic atrial fibrillation-patient is on Eliquis and carvedilol #6 hypertrophic cardiomyopathy-complicates care, management, recovery, and prognosis #7 chronic obstructive pulmonary disease-patient remains on aerosol treatment #8 cardiogenic shock-patient's systolic blood pressure has been in the 80s, she is on midodrine currently, blood pressure will be monitored Total clinical time spent by myself addressing the patient's medical issues, reviewing all of her data, and collaborating with the patient care team: 35 minutes Charges/Coding Visit Charges Inpatient E&M: 70453 Subs Hosp L2
[2024-12-06] VITALS (39 sets, daily range): BP systolic 60–102; BP diastolic 40–81; PULSE 59–100; RESP 13–25; TEMP 35.8–36.8; O2SAT 92–100; BMI 34.4; BMI 33.3
[2024-12-06] MEDS: Albuterol 2.5 MG/3 ML VIAL.NEB. INHALATION (02:51)
[2024-12-06 07:09] LABS: Hematocrit 32.6 % (37-47); Hemoglobin 9.3 g/dL (12.0-15.0); Immature Granulocytes Count 0.030 X10^3/uL (0.0-0.0); Mean Corp Hgb Conc 28.5 g/dL (32-36); Mean Corpuscular Volume 92.1 fL (81-99); Mean Platelet Vol. 12.8 fl (6.2-12.0); NRBC Flagged by Analyzer 0 % (0-5); POSITIVE DIFFERENTIAL YES; Platelet Count 171 K/mm3 (150-450); RBC Distribution Width CV 17.1 % (11.6-14.6); RBC Distribution Width SD 57.5 fl (35.1-43.9); Red Blood Count 3.54 M/mm3 (4.2-5.4); White Blood Count 7.4 K/mm3 (4.4-11.0)
--- NOTE | 2024-12-06 08:22 | PCM.PN.REN ---
Subjective Subjective Following for SAVANNA on CKD. Patient is more confused today. She did not tolerate IHD well yesterday because of hypotension. She denies chest pain, increasing dyspnea or nausea today. Objective Data Objective Data Vital Signs: Vital Signs Temp Pulse Resp BP Pulse Ox O2 Del Method O2 Flow Rate 97.6 F L 72 19 H 82/56 L 97 Nasal Cannula 2 12/06/24 06:20 12/06/24 06:20 12/06/24 06:20 12/06/24 06:20 12/06/24 06:20 12/06/24 07:57 12/06/24 07:57 Oxygen Flow Rate (L/min) 2 Oxygen Delivery Method Nasal Cannula Weight: 91.7 kg Body Mass Index (BMI) 34.4 Intake & Output: Intake and Output for Last 24 Hours 12/04/24 12/05/24 12/06/24 23:59 23:59 23:59 Intake Total 700 / 950 300 / 500 200 / 200 Output Total 0 / 0 Balance 700 / 950 300 / 500 200 / 200 Lab / Micro Data 12/06/24 06:48 12/06/24 06:48 Labs: Laboratory Results - last 24 hr 12/06/24 06:48: WBC 7.4, RBC 3.54 L, Hgb 9.3 L, Hct 32.6 L, MCV 92.1, MCH 26.3 L, MCHC 28.5 L, RDW Std Deviation 57.5 H, RDW Coeff of Linda 17.1 H, Plt Count 171, MPV 12.8 H, Immature Gran % (Auto) 0.400, Neut % (Auto) 85.8 H, Lymph % (Auto) 4.2 L, [place] % (Auto) 8.5, Eos % (Auto) 0.7, Baso % (Auto) 0.4, Absolute Neuts (auto) 6.4, Absolute Lymphs (auto) 0.31 L, Nucleated RBC % 0 Micro: Microbiology 12/02/24 18:14 Stool Stool Occult Blood (AALIYAH) - Final Occult Blood Positive Radiography Diagnostic Testing: Radiology Impression Chest X-Ray 12/05/24 13:05 IMPRESSION: There is a central line on the right with its tip in the superior vena cava at the right atrium. There is a left-sided cardiac device with wires in position. There is severe cardiomegaly with prominent central vascular markings and increased interstitial markings consistent with CHF, increased. Moderate bilateral effusions are present which appear increased. Reading Location: [facility] Rhythm Strip Rhythm Strip: Junctional rhythm Rate: 80 Ectopy: None (Underlying rhythm appears to be atrial fibrillation with a junctional rhythm driving her heart rate.) Physical Exam Narrative General: Alert and oriented x3, NAD. Cardiovascular: Normal S1, S2. No rubs, murmurs, or gallops. Respiratory: Breath sounds decreased bilaterally at bases. Abdomen: Normal bowel sounds, soft, nontender, no guarding or rebound, no organomegaly. Extremities: No clubbing or cyanosis. There is 3+ edema of lower extremities Assessment & Plan Assessment/Plan (1) Acute kidney failure: QUALIFIERS: Acute renal failure type: unspecified Qualified Code(s): N17.9 - Acute kidney failure, unspecified (2) Chronic kidney disease, stage 4 (severe): (3) CHF (congestive heart failure): QUALIFIERS: Heart failure chronicity: acute on chronic Heart failure type: combined systolic and diastolic Qualified Code(s): I50.43 - Acute on chronic combined systolic (congestive) and diastolic (congestive) heart failure (4) Shock circulatory: PLAN: Plan Impression/Plan: The patient is a 79-year-old female with past history of CKD stage G4, hypertension, atrial fibrillation, hypertrophic cardiomyopathy with HFrEF, pulmonary hypertension, and hyperlipidemia. Patient presented to the hospital on 12/02/2024 with 4 to 5-day history of dyspnea and generalized weakness. She is admitted to the hospital for treatment of decompensated heart failure and volume overload. Nephrology is asked to the patient because of acute kidney injury on chronic kidney disease. Acute kidney injury on chronic kidney disease stage G4. Serum creatinine has been around to 2.90 to 3.10 mg/dL in September 2024. Serum creatinine has increased to 5.22 mg/dL on 12/05/2024. Serum creatinine is 5.23 mg/dL today. Patient did receive partial dialysis yesterday we will be have to terminate early due to hypotension. My suspicion is that the patient has progression of CKD which led to volume overload. Renal function has continued to deteriorate despite holding diuretics. Therefore, started patient on hemodialysis on 12/05/2024 for volume control. However, patient did not tolerate IHD even with lower blood flow because of hypotension. It is unclear to me why she is still hypotensive. See below. I discussed options with the patient and Dr. Bradley. We will move patient to ICU for IV vasopressor and to start CRRT. Hopefully, with volume removal she may actually improve hemodynamically if circulatory shock is mainly due to cardiogenic cause. Volume overload/heart failure. Patient does have history of hypertrophic cardiomyopathy with HFrEF. However, my suspicion is that heart failure/volume overload is also due to progression of underlying CKD. Unfortunately, she did not respond well to IV furosemide. She remains oliguric. She will need volume removal which has been complicated by circulatory shock. Hypotension/circulatory shock. Unclear what the cause of her hypotension is. I suspect that it may be cardiogenic shock. Patient does run lower BP at baseline. Her blood pressure was 98/66 at her office visit with Dr. Pastrana on 11/26/2024. There is no signs of infection. I have low suspicion for obstructive causes for hypotension such as PE. Patient does have a pericardial effusion although it is small (less than 1 cm on echocardiogram). There is no significant valvular disease seen on echocardiogram. Patient is certainly not volume depleted. Patient has been off of all antihypertensives since admission. Regardless of the cause of hypotension, we are having a tough time dialyzing her with such a low blood pressure. Although I have low suspicion for myxedema or adrenal sufficiency, I will check TSH and cortisol level. Will need to move patient to ICU for IV vasopressor and CRRT. Nephrology plan is discussed with Dr. Bradley.
[2024-12-06 08:39] LABS: Albumin, Serum 3.8 g/dL (3.4-4.8); Anion Gap 15 (5-15); BUN 101 mg/dL (4-19); BUN/Creat Ratio 19.3 RATIO (10-20); Calcium,Total 9.1 mg/dL (7.6-11.0); Carbon Dioxide 22.7 mmol/L (21.0-32.0); Chloride 101 mmol/L (98-108); Estimated Creatinine Clearance 9.73 ml/min (50-250); Glucose 109 mg/dL (70-99); Potassium 5.3 mmol/L (3.3-5.1)
[2024-12-06 08:47] LABS: Hepatitis B Surface Antigen Nonreactive (Nonreactive)
[2024-12-06] MEDS: Multivitamin (Healthy Eyes) Capsule 1 CAP PO (08:50)
[2024-12-06] MEDS: Magnesium Chloride 64 MG Delay Rel.Tablet PO (08:50)
--- NOTE | 2024-12-06 09:04 | CASEMGMT ---
Addendum entered by Taryn Christensen 12/06/24 12:52: [facility] Taryn Christensen DC Planning Asst. Addendum entered by Taryn Christensen 12/06/24 10:27: [facility] has declined. Taryn Christensen DC Planning Asst. Original Note: Discharge Planning [facility], [facility], and [facility]. [facility] declined. Taryn Christensen DC Planning Asst.
[2024-12-06 10:28] LABS: Ionized Calcium Order ORDER TUBE
[2024-12-06 11:54] LABS: CORTISOL AM 25.20 ug/dL (6.02-18.40)
--- NOTE | 2024-12-06 12:59 | PCM.PN.BLA ---
Progress Note Patient seen and evaluated during AM rounds. Her friend and POA was present at bedside and described that Ms. Chambers had displayed signs of exceptional confusion and has been calling family members to notify them that she was dying. Upon my entry to the room patient was able to recall who I was and the nature of our relationship. It is brought to my attention that patient is awaiting imminent transfer to the ICU to attempt CVVHD given her intolerance of conventional dialysis yesterday secondary to hypotension. Catheter site is examined on the right and there is some slight clotted blood around the entry site otherwise it remains anchored at its suture points. There is no surrounding erythema. Continue care per primary and nephrology teams. Will continue to follow peripherally to determine if patient will require conversion to tunneled line. Please keep surgery informed of any significant clinical developments. Given the slight oozing around the catheter insertion site and uncertainty around placement of a tunneled line please continue to hold Eliquis.
[2024-12-06] MEDS: PUREFLOW B SOLUTION 4K 5,000 ML BAG 9 BAG PF (13:30)
[2024-12-06] MEDS: Phenylephrine 10 MG in 0.9% Normal Saline (250mL Bag) 249 ML 15 MG CONT INF (15:45)
[2024-12-06 16:21] LABS: Albumin, Serum 3.9 g/dL (3.4-4.8); Anion Gap 15 (5-15); BUN 90 mg/dL (4-19); BUN/Creat Ratio 17.8 RATIO (10-20); Calcium,Total 9.5 mg/dL (7.6-11.0); Carbon Dioxide 22.1 mmol/L (21.0-32.0); Chloride 100 mmol/L (98-108); Estimated Creatinine Clearance 9.91 ml/min (50-250); Glucose 106 mg/dL (70-99); Magnesium 2.9 mg/dL (1.5-2.2); Potassium 5.5 mmol/L (3.3-5.1)
--- NOTE | 2024-12-06 16:55 | RAD_ITS ---
PROCEDURE: CXR FOR LINE PLACEMENT 12/06/2024 REASON FOR EXAM: PICC PLACEMENT TECHNIQUE: CXR FOR LINE PLACEMENT COMPARISON: 12/05/2024. FINDINGS: Right PICC terminates in the region of the right cavoatrial junction. Left chest pacemaker. Right shoulder arthroplasty. Heart is stably enlarged. Stable bilateral pleural effusions. Similar findings of edema. RAD/CXR for Line Placement IMPRESSION: Right PICC as above. Stable findings of edema and bilateral pleural effusions. Reading Location: [id number]
--- NOTE | 2024-12-06 18:02 | PCM.PN.HOSP ---
Reason for Visit Chief Complaint: Shortness of breath Subjective Subjective Patient was seen and examined today, I talked extensively with nephrology and her POA, they were unable to do dialysis today on her due to her low blood pressure, we made a decision to transfer her to ICU and begin pressors so that she can undergo continuous dialysis. I talked briefly with cardiology due to the fact that she sees [facility], they recommended not using Levophed due to her hypertrophic cardiomyopathy, they were all right with the patient being on Braulio-Synephrine drip. Patient exhibits confusion today and appears overall unwell. Chest x-ray yesterday showed signs of CHF with bilateral pleural effusions. Objective Data Objective Data Vital Signs: Vital Signs Temp Pulse Resp BP Pulse Ox O2 Del Method O2 Flow Rate 96.4 F L 72 18 93/58 L 100 Nasal Cannula 2 12/06/24 17:00 12/06/24 17:45 12/06/24 17:00 12/06/24 17:45 12/06/24 17:00 12/06/24 17:00 12/06/24 17:00 Oxygen Flow Rate (L/min) 2 Oxygen Delivery Method Nasal Cannula Weight: 88.6 kg Body Mass Index (BMI) 33.3 Intake & Output: Intake and Output for Last 24 Hours 12/04/24 12/05/24 12/06/24 23:59 23:59 23:59 Intake Total 700 / 950 300 / 500 282.50 / 282.50 Output Total 0 / 0 Balance 700 / 950 300 / 500 282.50 / 282.50 Lab / Micro Data 12/06/24 06:48 12/06/24 15:20 Labs: Laboratory Results - last 24 hr 12/05/24 06:48: Hep Bs Antigen Nonreactive 12/06/24 06:48: WBC 7.4, RBC 3.54 L, Hgb 9.3 L, Hct 32.6 L, MCV 92.1, MCH 26.3 L, MCHC 28.5 L, RDW Std Deviation 57.5 H, RDW Coeff of Linda 17.1 H, Plt Count 171, MPV 12.8 H, Immature Gran % (Auto) 0.400, Neut % (Auto) 85.8 H, Lymph % (Auto) 4.2 L, [place] % (Auto) 8.5, Eos % (Auto) 0.7, Baso % (Auto) 0.4, Absolute Neuts (auto) 6.4, Absolute Lymphs (auto) 0.31 L, Nucleated RBC % 0, Sodium 138, Potassium 5.3 H, Chloride 101, Carbon Dioxide 22.7, Anion Gap 15, BUN 101 H*, Creatinine 5.23 H, Estim Creat Clear Calc 9.73 L*, Est GFR (MDRD) Non-Af 8 L, BUN/Creatinine Ratio 19.3, Glucose 109 H, Calcium 9.1, Phosphorus 6.3 H, Albumin 3.8, TSH 0.752, Cortisol AM Sample 25.20 H 12/06/24 15:20: Sodium 137, Potassium 5.5 H, Chloride 100, Carbon Dioxide 22.1, Anion Gap 15, BUN 90 H, Creatinine 5.04 H, Estim Creat Clear Calc 9.91 L*, Est GFR (MDRD) Non-Af 8 L, BUN/Creatinine Ratio 17.8, Glucose 106 H, Calcium 9.5, Phosphorus 6.2 H, Magnesium 2.9 H, Albumin 3.9 Micro: Microbiology 12/02/24 18:14 Stool Stool Occult Blood (AALIYAH) - Final Occult Blood Positive Radiography Diagnostic Testing: Radiology Impression Chest X-Ray 12/06/24 16:55 IMPRESSION: Right PICC as above. Stable findings of edema and bilateral pleural effusions. Reading Location: [facility] Rhythm Strip Rhythm Strip: Junctional rhythm Rate: 80 Ectopy: None (Underlying rhythm appears to be atrial fibrillation with a junctional rhythm driving her heart rate.) Physical Exam Narrative Patient is somnolent and confused General Appearance: cooperative, well kempt and well developed Orientation / Consciousness: Patient is somnolent and confused HEENT normocephalic, head/scalp atraumatic and moist oral mucous membranes Eyes PERRL, EOMs intact bilaterally and conjunctivae normal Neck supple, no JVD, thyroid normal and no carotid bruits General: trachea midline Resp normal respiratory effort Resp Narrative: Inspiratory rales at the bases bilaterally Auscultation: rales bilateral base; Negative for rhonchi or wheezes Cardio irregular rate, regular rhythm, S1 normal heart sound, S2 normal heart sound, no murmurs, no rub and no gallops GI normal to inspection, nondistended, normoactive bowel sounds, soft to palpation, non-tender and non-distended Extremity no clubbing, cyanosis or edema Skin no rashes or lesions noted General Skin Exam: no breakdown Neuro CN's II-XII intact bilaterally, no focal motor deficits Sensorium / Orientation: Patient confused Psych Patient is confused Assessment & Plan Assessment/Plan (1) Shock circulatory: (2) Acute kidney failure: QUALIFIERS: Acute renal failure type: unspecified Qualified Code(s): N17.9 - Acute kidney failure, unspecified (3) CHF (congestive heart failure): QUALIFIERS: Heart failure type: combined systolic and diastolic Heart failure chronicity: acute on chronic Qualified Code(s): I50.43 - Acute on chronic combined systolic (congestive) and diastolic (congestive) heart failure PLAN: Plan 1. Acute on chronic intermediate congestive heart failure-patient's echocardiogram showed a normal EF of 45%, continues dialysis will be attempted today #2 acute kidney injury on a backdrop of stage IV chronic kidney disease-nephrology is participating in her care, they will attempt continuous dialysis today #3 hypothyroidism-patient is on Synthroid #4 history of hypertrophic cardiomyopathy-patient's ejection fraction is currently 45% #5 chronic atrial fibrillation-patient is on Eliquis and carvedilol #6 chronic obstructive pulmonary disease-patient remains on aerosol treatments #7 cardiogenic shock-patient's systolic blood pressure has been in the 80s, she is on midodrine currently, Braulio-Synephrine will be started, patient had a PICC line inserted Total clinical time spent by myself addressing the patient's medical issues, reviewing all of her data, and collaborating with the patient care team: 35 minutes Charges/Coding Visit Charges Inpatient E&M: 83426 Subs Hosp L2
[2024-12-06] MEDS: Phenylephrine 10 MG in 0.9% Normal Saline (250mL Bag) 249 ML 195 MG CONT INF (19:22)
--- NOTE | 2024-12-06 20:47 | PN.HOSP_ITS ---
Hospitalist Note Notified by nursing that the patient was ready to discontinue all therapies and was ready for hospice. Patient's POA was contacted and arrived. I spoke with Humaira as well as the patient's nurse, Zaida, at bedside. Patient said that she was done and wanted discontinuation of all treatment options. Her POA expressed to her that discontinuation of all interventions would hasten her demise the patient was aware and was accepting of that fact. Patient is ready for comfort measures and hospice. Will discontinue all therapy that does not e ntail comfort measures. Discussed with the patient and the POA about CODE STATUS that her CODE STATUS is currently at DNR Comfort Care arrest no intubation. Lizzy Corona wishes for the patient to return to DNR comfort care status. Patient will have comfort treatments initiated and patient and POA informed several times that if any treatment is insufficient in regards to make sure that she is comfortable to notify her nurse who can notify me and we can make changes. Will consult hospice as well t picture if the patient survives throughout the night.
[2024-12-06] MEDS: morphine (oral solution) 10MG/0.5ML Syringe 10 MG SL/PO (20:56)
--- NOTE | 2024-12-06 21:15 | NURSING ---
2002- [facility] informed this RN that patient stated I want to . RN immediately to bedside, pt states to this RN I want to . This RN asked patient the orientation questions, pt able to tell this RN the year, her location and her full name and . Pt stated again to this RN please help me , this RN informed patient I would call the doctor and her POA. POA, Humaira Tsai, contacted at 2004. Updated Humaira on patient's wishes and that she currently is oriented to make these decisions but I wanted to contact her to keep her in the loop and see if she wanted to come bedside to speak with patient. Humaira stated to this RN that whatever the patient's wishes are she wants to honor them and that she would come to bedside within 30 mins. Educated POA that I would reach out to the doctor and inform him of this decision, POA agreeable. 2009- Dr. Aguiar messaged through backline to call unit regarding patient. 2019- Dr. Aguiar called unit. Updated him on patient's wishes and that she is currently alert and oriented requesting to and that the POA had been contacted and was coming in to the hospital. Dr. Aguiar agreeable to come bedside to speak to patient and POA. Informed him I would call Dr. Koch, the aircraft instrument mechanic, to get an order to discontinue the CRRT once a formal decision had been made. 2021- Dr. Koch updated on patient situation, he states that he is agreeable to discontinue CRRT per patient's wishes. 2034- Pt's POA, Dr. Aguiar and this RN bedside w/ patient. Pt educated on process of withdrawing care and becoming a DNRCC by Dr. Aguiar, pt states 'let's go, I want to go. All parties agreeable to changing code status to DNRCC. Pt's POA, asked patient if she would like us to contact her sister, Juliana. Pt stated no. 2047- Blood returned to patient from CRRT machine and CRRT discontinued along w/ the arpita gtt.
[2024-12-07] MEDS: morphine (oral solution) 10MG/0.5ML Syringe 10 MG SL/PO ×5 (00:20→16:44)
[2024-12-07] MEDS: LORazepam 2 MG/ML Bottle 0.5 MG SL ×3 (00:29→21:01)
[2024-12-07 04:00] VITALS: BP 75/47; PULSE 80; RESP 12; TEMP 36.6; O2SAT 99
[2024-12-07 08:30] VITALS: BP 85/62; PULSE 83; RESP 10; TEMP 36.1; O2SAT 85
[2024-12-07] MEDS: 0.9% Saline Lock 10 ML Syringe IV (09:19)
--- NOTE | 2024-12-07 09:31 | CASEMGMT ---
Addendum entered by Mary Cook 12/07/24 11:27: [facility] be here at 5:30pm to meet w/pt and POA. ROLO Sheppard Original Note: [facility] made, information faxed. Hospice to call SW w/time of meeting. ICU updated. ROLO Sheppard
--- NOTE | 2024-12-07 18:36 | PCM.DC.SUM ---
Providers Date of Admission: 12/02/24 Date of Discharge: 12/07/24 Primary Care Physician: Garry Jay MD Consultations 12/06/24 20:51 Consult: Hospice / Palliative Care Routine Consulting Provider: [facility] Reason for Consult: end of life care EMERGENT Consult: No MD Notified: Yes Date Notified: 12/07/24 Time Notified: 09:00 Method of Notification: Verbal Reason For Visit: ACUTE ON CHRONIC RENAL FAILURE, CONGETIVE HEART Diagnosis Discharge Diagnosis (1) Shock circulatory: Status: Acute Code(s): R57.9 - Shock, unspecified (2) Acute kidney failure: Status: Acute Code(s): N17.9 - Acute kidney failure, unspecified Qualifiers: Acute renal failure type: unspecified Qualified Code(s): N17.9 - Acute kidney failure, unspecified (3) CHF (congestive heart failure): Status: Acute Code(s): I50.9 - Heart failure, unspecified Qualifiers: Heart failure chronicity: acute on chronic Heart failure type: combined systolic and diastolic Qualified Code(s): I50.43 - Acute on chronic combined systolic (congestive) and diastolic (congestive) heart failure Plan 1. Acute on chronic intermediate congestive heart failure-patient's echocardiogram showed a normal EF of 45%, continues dialysis will be attempted today #2 acute kidney injury on a backdrop of stage IV chronic kidney disease-nephrology is participating in her care, they will attempt continuous dialysis today #3 hypothyroidism-patient is on Synthroid #4 history of hypertrophic cardiomyopathy-patient's ejection fraction is currently 45% #5 chronic atrial fibrillation-patient is on Eliquis and carvedilol #6 chronic obstructive pulmonary disease-patient remains on aerosol treatments #7 cardiogenic shock-patient's systolic blood pressure has been in the 80s, she is on midodrine currently, Braulio-Synephrine will be started, patient had a PICC line inserted Total clinical time spent by myself addressing the patient's medical issues, reviewing all of her data, and collaborating with the patient care team: 35 minutes Medications at Discharge Home Medications aspirin 81 mg chewable tablet 81 mg PO DAILY@0800 Heart 01/22/15 albuterol sulfate 90 mcg/actuation aerosol inhaler 2 puff inhalation Q6H PRN shortness of breath or wheezing 06/02/21 magnesium 200 mg tablet 200 mg PO DAILY replaceme 09/21/21 Handicap Parking Placard #1 ea 06/26/23 sacubitril 24 mg-valsartan 26 mg tablet (Entresto) 1 tab PO BID blood pressure #180 tabs 06/11/24 levothyroxine 150 mcg tablet 150 mcg PO QDAY thyroid 07/12/24 spironolactone 50 mg tablet 25 mg PO Q OTHER DAY diuretic 07/12/24 pantoprazole 40 mg tablet,delayed release 40 mg PO BID gi upset 30 days #60 tabs 07/24/24 sucralfate 1 gram tablet (Carafate) 1 g PO TID gastric ups 4 weeks #180 tabs 07/24/24 apixaban 5 mg tablet (Eliquis) 5 mg PO BID blood thinn #180 tabs 08/08/24 acetaminophen 500 mg tablet 1,000 mg PO Q8 PRN pain 09/25/24 ferrous sulfate 324 mg (65 mg iron) tablet,delayed release 324 mg PO QDAY iron deficinct 09/25/24 multivitamin 1 tab PO QAM supplement 09/25/24 vit C 250 mg-vit E 90 mg-zinc 40 mg-copper 1 qg-mevmol-qvgygb capsule (PreserVision AREDS-2) 1 tab PO DAILY supplement 09/25/24 diphenoxylate-atropine 2.5 mg-0.025 mg tablet (Lomotil) 1 tab PO TID PRN diarrhea #90 tabs 10/14/24 furosemide 40 mg tablet 40 mg PO BID CHF 90 days #180 tabs 10/24/24 carvedilol 3.125 mg tablet 3.125 mg PO BID heart #180 tabs 11/18/24 Hospital Course Operations None Procedures 2-D Echocardiogram, Dialysis and - (Placement of temporary dialysis catheter) Summary of Care Provided Minutes Spent on Discharge: 31 Hospital Course: 79-year-old female was seen in the emergency room at [facility] with complaints of shortness of breath. Significant past medical history included congestive heart failure and COPD. She also had a hypertrophic cardiomyopathy. Labs were remarkable for a beta natruretic peptide of 19,538, BUN was 87 and creatinine was 3.75 patient had low blood pressure in the emergency room and was unable to be diuresed in the emergency room. Patient was admitted to progressive care unit, she was a DNR DO NOT INTUBATE, she was placed on IV diuresis and seen in consultation by nephrology due to her elevated creatinine. Patient also underwent an echocardiogram which showed an ejection fraction of 45%. Patient's blood pressure remained low however and her creatinine steadily elevated indicating acute renal failure. Patient consented to dialysis in the temporary dialysis catheter had to be placed due to the patient's hypotension. Unfortunately, adequate dialysis could not be carried out due to the patient's low blood pressure despite midodrine administration and finally transferred to the ICU with Braulio-Synephrine administration. Patient's POA discussed her care with me and it was decided that the patient would be seen by hospice, patient was seen by hospice on 12/07/2024 and hospice agreed to take the patient to inpatient hospice for further care. On that date, patient was seen and examined:Patient is somnolent and confused General Appearance: cooperative, well kempt and well developed Orientation / Consciousness: Patient is somnolent and confused HEENT normocephalic, head/scalp atraumatic and moist oral mucous membranes Eyes PERRL, EOMs intact bilaterally and conjunctivae normal Neck supple, no JVD, thyroid normal and no carotid bruits General: trachea midline Resp normal respiratory effort Resp Narrative: Inspiratory rales at the bases bilaterally Auscultation: rales bilateral base; Negative for rhonchi or wheezes Cardio irregular rate, regular rhythm, S1 normal heart sound, S2 normal heart sound, no murmurs, no rub and no gallops GI normal to inspection, nondistended, normoactive bowel sounds, soft to palpation, non-tender and non-distended Extremity no clubbing, cyanosis or edema Skin no rashes or lesions noted General Skin Exam: no breakdown Neuro CN's II-XII intact bilaterally, no focal motor deficits Sensorium / Orientation: Patient confused Psych Patient is confused Patient appears to be stable for discharge to inpatient hospice, prognosis was terminal. Weight / BMI Weight Weight: 88.6 kg Body Mass Index (BMI) 33.3 ABG / Lab / Microbiology Data 12/06/24 06:48 12/06/24 15:20 Microbiology: Microbiology 12/02/24 18:14 Stool Stool Occult Blood (AALIYAH) - Final Occult Blood Positive D/C Instructions DC O2, CPAP, BIPAP Needs Home O2 Discharge instructions: No Meaningful Use Info Meaningful Use Meaningful Use Diagnoses (Choose all that apply): CHF CHF HUNTER/ARB ordered at discharge?: No Reason HUNTER/ARB not ordered?: Allergy (Hospice patient) Documented LVEF (%): 45 Discharge Plan Admission Admit Date/Time: 12/02/24 20:56 Primary Reason for Your Visit: CKD, CHF exac Attending Provider: Brody Bradley Primary Care Provider: Garry Jay Consulting Providers: Randall Stoddard; Cornelio Pickard; Dawna Alvarez; Bessie Quiros; Camila Wilkins; Ava Henry MEDICAL APPOINTMENT SCHEDULER; Mary Bhatia Discharge Orders/Prescriptions Prescriptions: No Action albuterol sulfate 90 mcg/actuation HFA aerosol inhaler 2 puff INHALATION Q6H PRN (Reason: shortness of breath or wheezing) magnesium 200 mg tablet 200 mg PO DAILY levothyroxine 150 mcg tablet 150 mcg PO QDAY spironolactone 50 mg tablet 25 mg PO Q OTHER DAY multivitamin Tablet 1 tab PO QAM ferrous sulfate 324 mg (65 mg iron) tablet,delayed release (DR/EC) 324 mg PO QDAY PreserVision AREDS-2 250-90-40-1 mg capsule 1 tab PO DAILY acetaminophen 500 mg tablet 1,000 mg PO Q8 PRN (Reason: pain) aspirin 81 MG tablet,chewable 81 mg PO DAILY@0800 (DME) Handicap Parking Placard See Rx Instructions .Route .MEDSUPPLY Qty: 1 0RF Rx Instructions: As directed Entresto 24-26 mg tablet 1 tab PO BID Qty: 180 3RF pantoprazole 40 mg tablet,delayed release (DR/EC) 40 mg PO BID 30 Days Qty: 60 5RF sucralfate [Carafate] 1 gram tablet 1 g PO TID 28 Days Qty: 180 2RF Eliquis 5 mg tablet 5 mg PO BID Qty: 180 3RF diphenoxylate-atropine [Lomotil] 2.5-0.025 mg tablet 1 tab PO TID PRN (Reason: diarrhea) Qty: 90 3RF furosemide 40 mg tablet 40 mg PO BID 90 Days Qty: 180 3RF carvedilol 3.125 mg tablet 3.125 mg PO BID Qty: 180 3RF Rx Instructions: must administer with a meal/food Referrals / Follow Up: Humaira Churchill MD [Med Staff - Pathology Manager] - Garry Jay MD [Primary Care Provider] - Disposition Disposition (needs filled in before D/C Order can be placed): Home Health Service Charges/Coding Visit Charges Inpatient E&M: 53599 Disch Hosp >30min
[2024-12-07 20:00] VITALS: BP 97/69; PULSE 102; RESP 20; TEMP 36.1; O2SAT 80
[2024-12-07 21:00] VITALS: BP 97/69; PULSE 102; RESP 20; TEMP 36.1; O2SAT 80
--- NOTE | 2024-12-07 21:30 | NURSING ---
Report given to Juan at [facility]. Belongings sent with transport. Called Humaira ARGUELLO, to let her know of discharge.
[2024-12-07 23:58] VITALS: BMI 33.3
--- NOTE | 2024-12-09 11:16 | CASEMGMT ---
[facility] admissions notified that the pt was discharged to in hospice services. Referral canceled at this time.
== END 2024-12-07 21:10 | disposition hospice, inpatient (51) | DRG 291 ==
LOC: ED 20:45 → PCU 20:51 → ICU 12-06 10:52
PROVIDERS: Internal Medicine Nephrology; Surgery; Admitting Provider Family Medicine; Emergency Provider Surgery; PCP Family Medicine; Visit Provider Internal Medicine
DX: I13.0 Hypertensive heart and chronic kidney disease with heart failure and stage 1 through stage 4 chronic kidney disease, or unspecified chronic kidney disease (principal); I50.43 Acute on chronic combined systolic (congestive) and diastolic (congestive) heart failure; R57.0 Cardiogenic shock; I24.89 Other forms of acute ischemic heart disease; N17.9 Acute kidney failure, unspecified; J90 Pleural effusion, not elsewhere classified; N18.4 Chronic kidney disease, stage 4 (severe); I48.20 Chronic atrial fibrillation, unspecified; I95.3 Hypotension of hemodialysis; Z51.5 Encounter for palliative care; Z66 Do not resuscitate; J44.9 Chronic obstructive pulmonary disease, unspecified; E03.9 Hypothyroidism, unspecified; E78.00 Pure hypercholesterolemia, unspecified; I42.1 Obstructive hypertrophic cardiomyopathy; Z99.2 Dependence on renal dialysis; Z87.891 Personal history of nicotine dependence; Z90.710 Acquired absence of both cervix and uterus; Z79.890 Hormone replacement therapy; Z79.01 Long term (current) use of anticoagulants; Z79.899 Other long term (current) drug therapy; Z79.83 Long term (current) use of bisphosphonates
CPT/HCPCS: 36415; 71045; 71046; 76000; 80048; 80069; 80076; 82274; 82533; 83735; 83880; 84443; 84484; 85025; 87340; 90937; 90947; 93005; 93306; 93985; 94640; 97162; 97166; 97530; 97535; 97803; 99285; P9047; Q9957; A4216; C1752; G0257; J2405